=== PATIENT | female | born 1935 | race Caucasian/White ===

== ENCOUNTER 2016-08-03 15:29 | Inpatient (IN) | payer OTHER, MEDICARE ==
[~2016-08-03] VITALS: Ht 167.6 cm; Wt 100.7 kg
[~2016-08-03 15:29] MED LIST: ALDACTONE50 MG PO; ALLOPURINOL100 MG PO; AMLODIPINE10 MG PO; CORGARD20 MG PO; DITROPAN XL10 MG PO; FUROSEMIDE20 MG PO; LEVOTHYROXINE0.15 MG PO; LIORESAL 10MG T10 MG PO; LISINOPRIL AND1 TA1 PO; MAGOX 400241.3 MG PO; MASON NATURAL2000 IU PO; MEVACOR20 MG PO; NEURONTIN300 MG PO; PROTONIX 40MG T40 MG PO; REQUIP 0.5MG0.5 M1 PO; VITAB121000 PO
--- NOTE | 2016-08-03 15:36 | NUR ---
RECEIVED 80 YO FEMALE SENT BY URGENT CARE FOR ELEVATED BLOOD SUGAR AND COMPLAINT THAT PT'S GENITAL AREA IS RED, SWOLLEN, AND HAS BURNING PAIN X FEW WEEKS. MILD BURNING WITH URINATION.
--- NOTE | 2016-08-03 15:41 | NUR ---
BLOOD SUGAR > THAN 500
--- NOTE | 2016-08-03 15:50 | ED GENERAL ADULT ---
History of Present Illness General Chief Complaint: Female Urogenital Problems Stated Complaint: VAGINAL SWELLING, FREQUENT URINATION Source: patient, family Exam Limitations: no limitations Allergies Coded Allergies: Opioids - Morphine Analogues (ITCH, GI UPSET 08/03/16) Opioids-Meperidine and Related (ITCH, GI UPSET 08/03/16) Opioids-Methadone and Related (ITCH, GI UPSET 08/03/16) codeine (GI UPSET 08/03/16) morphine (ITCHING, GI UPSET 08/03/16) Reconcile Medications Allopurinol (Zyloprim) 100 MG TABLET 1 TAB PO DAILY GOUT (Reported) Amlodipine Besylate 10 MG TABLET 1 TAB PO DAILY BP (Reported) Cholecalciferol (Vitamin D3) (Vitamin D) 5,000 UNIT TABLET 1 TAB PO DAILY SUPPLEMENT (Reported) Cyanocobalamin (Vitamin B-12) 1,000 MCG TABLET 1 TAB PO DAILY SUPPLEMENT ( Reported) Duloxetine HCl (Cymbalta) 60 MG CAPSULE.DR 1 CAP PO DAILY NERVE PAIN ( Reported) Furosemide (Lasix) 20 MG TABLET 60 MG PO BID DIURETIC (Reported) Gabapentin 300 MG CAPSULE 1 CAP PO BID NERVE PAIN (Reported) Insulin Detemir (Levemir) 100 UNIT/ML VIAL 6 UNITS SC AD DM (Reported) Insulin-Lantus (Lantus) 100 UNIT/ML VIAL 46 UNITS SC QAM DM (Reported) Insulin-Lantus (Lantus) 100 UNIT/ML VIAL 50 UNITS SC QPM DM (Reported) Levothyroxine Sodium 175 MCG TABLET 1 TAB PO DAILY THYROID (Reported) Lovastatin 20 MG TABLET 1 TAB PO DAILY CHOLESTEROL (Reported) Magnesium Oxide (Magnesium) 500 MG CAPSULE 1 CAP PO DAILY SUPPLEMENT ( Reported) Mirabegron (Myrbetriq) 50 MG TAB.ER.24H 1 TAB PO DAILY BLADDER (Reported) Nadolol 20 MG TABLET 1 TAB PO DAILY BP (Reported) Omeprazole 40 MG CAPSULE.DR 1 CAP PO DAILY GI (Reported) Spironolactone (Aldactone) 50 MG TABLET 1 TAB PO BID DIURETIC (Reported) Triage Note: RECEIVED 80 YO FEMALE SENT BY URGENT CARE FOR ELEVATED BLOOD SUGAR AND COMPLAINT THAT PT'S GENITAL AREA IS RED, SWOLLEN, AND HAS BURNING PAIN X FEW WEEKS. MILD BURNING WITH URINATION. Triage Nurses Notes Reviewed? yes HPI: Patient is a 80-year-old female presents complaining of burning sensation with urination, vaginal swelling and vaginal itching. Symptoms for a couple of weeks. Over the past couple of days patient has been having increasing pain when she walks and sits which prompted her to go to an urgent care clinic today. Patient's blood sugar was measured to be greater than 500 and patient was sent to emergency department for further evaluation. Patient reports pain is moderate at rest, severe with walking. Associated polyuria, polydipsia. Patient denies fevers, chills, abdominal pain, nausea, vomiting. (SAMUEL FLORES) Vital Signs & Intake/Output Vital Signs & Intake/Output Vital Signs Date Time Temp Pulse Resp B/P Pulse O2 O2 Flow FiO2 Ox Delivery Rate 08/03 1852 67 18 138/68 96 Room Air 08/03 1600 Room Air 08/03 1537 96.5 72 20 160/99 96 Room Air Past History Travel History Traveled to [place] past 21 day No Medical History Any Pertinent Medical History? see below for history Neurological: dizziness Cardiovascular: hypertension, hyperlipidemia Respiratory: NONE Gastrointestinal: GERD Hepatic: cirrhosis Renal: urinary incontinence Musculoskeletal: gout Endocrine: diabetes, hypothyroidism Blood Disorders: thrombocytopenia Other Medical Hx: Urinary incontinence Surgical History Surgical History: appendectomy, cholecystectomy, hysterectomy, BILAT KNEE REPLACEMENTS Psychosocial History Who do you live with Spouse Services at Home None What is your primary language Georgian Tobacco Use: Never used Family History Hx Contributory? No (SAMUEL FLORES) Review of Systems Review of Systems Constitutional: Denies: chills, fever. EENTM: Reports: no symptoms. Respiratory: Denies: cough, short of breath. Cardiovascular: Denies: chest pain. GI: Denies: abdominal pain, nausea, vomiting. Genitourinary: Reports: dysuria, pain. Musculoskeletal: Reports: no symptoms. Skin: Reports: no symptoms. Neurological/Psychological: Denies: headache, numbness. Hematologic/Endocrine: Reports: polyuria, polydipsia. Denies: bruising, bleeding. Immunologic/Allergic: Reports: no symptoms. (SAMUEL FLORES) Physical Exam Physical Exam General Appearance: well developed/nourished, alert, awake Head: atraumatic, normal appearance Eyes: Bilateral: normal appearance, PERRL, EOMI. Ears, Nose, Throat: normal ENT inspection, hearing grossly normal Neck: normal inspection, supple, full range of motion Respiratory: normal breath sounds, chest non-tender, no respiratory distress, lungs clear Cardiovascular: regular rate/rhythm Gastrointestinal: soft, non-tender Back: normal inspection, normal range of motion Extremities: normal inspection, normal capillary refill, normal range of motion, no edema Skin: with Sandra RN present during exam: tinea rash present perivaginal and in the pelvic skin folds Core Measures ACS in differential dx? No CVA/TIA Diagnosis: No Severe Sepsis Present: No Septic Shock Present: No (SAMUEL FLORES) Progress Differential Diagnoses I considered the following diagnoses in my evaluation of the patient: DKA, hyperosmolar nonketotic state, UTI, tinea infection, sepsis, electrolyte abnormality Initial ED EKG: normal sinus rhythm 71 bpm, left axis deviation, no ischemic st/ t wave abormalities. (SAMUEL FLORES) Plan of Care: Orders Procedure Date/time Status Add-on Test (ER Only) 08/03 1940 Active Add-on Test (ER Only) 08/03 194 Active Patient Data 08/03 1921 Active Admit to inpatient 08/03 1836 Active TROPONIN LEVEL 08/03 1715 Active MAGNESIUM 08/03 1715 Active GLYCOSYLATED HGB 08/03 1715 Active MIXED VENOUS BLOOD GAS (GEN) 08/03 1548 Active SERUM OSMOLALITY 08/03 1548 Active COMPREHENSIVE METABOLIC PANEL 08/03 1548 Active CBC WITHOUT DIFFERENTIAL 08/03 1548 Complete ACETONE 08/03 1548 Active EKG 08/03 1548 Active CULTURE,URINE 08/03 1540 Active URINALYSIS 08/03 1540 Complete Current Medications Sig/Jennifer Start time Last Medication Dose Stop Time Status Admin Insulin Human Regular 100 UNIT ONCE ONE 08/03 1900 AC (Novolin R (Insulin 08/04 0459 Drip)) Sodium Chloride 100 ML (Normal Saline 0.9%) Sodium Chloride 1,000 ML ONCE ONE 08/03 1815 AC (Normal Saline 0.9%) 08/04 0054 Laboratory Tests 08/03/16 1730: Urine Color YEL, Urine Clarity CLEAR, Urine pH 6.5, Ur Specific [place] <= 1.005 , Urine Protein NEG, Urine Ketones NEG, Urine Nitrite NEG, Urine Bilirubin NEG, Urine Urobilinogen 0.2, Ur Leukocyte Esterase TRACE H, Ur Microscopic SEDIMENT EXAMINED, Urine RBC 3-5, Urine WBC 50-75 H, Ur Epithelial Cells FEW, Micro UA Comment BUD[place] YEAST H, Urine Hemoglobin TRACE-INTACT, Urine Glucose >=1000 H 08/03/16 1715: Bicarbonate Actual 28 H, Mixed VBG pH 7.33, Mixed VBG pCO2 55 H, Mixed VBG O2 Saturation 31 L, Carboxyhemoglobin 0.4 L, O2 Concentration % R/A, Anion Gap 10 , Estimated GFR 22 L, BUN/Creatinine Ratio 23.2, Glucose 919 *H, Hemoglobin A1c Pending, Serum Osmolality 339 H, Calcium 9.7, Magnesium Pending, Total Bilirubin 0.8, AST 30, ALT 39, Alkaline Phosphatase 128 H, Troponin I Pending, Total Protein 6.0 L, Albumin 3.4 L, Globulin 2.6, Albumin/Globulin Ratio 1.3, Phlebotomy Draw Site VENOUS, Acetone Level NEGATIVE 08/03/16 1600: CBC w Diff NO MAN DIFF REQ, RBC 3.39 L, MCV 95.0, MCH 32.8 H, RDW 14.9 H, MPV 12.6 H, Gran % 76.7 H, Lymphocytes % 15.6 L, Monocytes % 6.2, Eosinophils % 1.2, Basophils % 0.3, Absolute Granulocytes 4.0, Absolute Lymphocytes 0.8 L, Absolute Monocytes 0.3, Absolute Eosinophils 0.1, Absolute Basophils 0, PUBS MCHC 34.5 Microbiology 08/03 1729 URINE ROUT: Urine Culture - RECD 1819: Results of labs discussed with patient. Discussed with and seen by Dr. Spencer. Discussed with Dr. Nickerson: contact endocrine for whether or not an insulin drip should be intitiated. Will admit patient. Discussed with Dr. García: place on insulin drip, admit to ICU, have house staff call him. (SAMUEL FLORES) Departure Departure Time of Disposition: 1903 Disposition: STILL A PATIENT Condition: Stable Clinical Impression Primary Impression: Diabetes mellitus with hyperosmolarity Secondary Impressions: Acute kidney injury Tinea cruris Urinary tract infection Qualifiers: Urinary tract infection type: site unspecified Hematuria presence: without hematuria Qualified Code: N39.0 - Urinary tract infection, site not specified Referrals: MARIUSZ KAUR MD (PCP/Family) Departure Forms: Customer Survey General Discharge Information Admission Note [facility] Documentation of Exam: Documentation of any treatments & extenuating circumstances including Concerns Regarding Discharge (functional status, medication knowledge or non-compliance, living conditions, etc.) that warrant an admission rather than observation: ICU admission and monitoring, Insulin drip, serial labs, endocrine evaluation PA/RABBIT FANCIER Co-Sign Statement Statement: ED Attending supervision documentation- [x] I saw and evaluated the patient. I have also reviewed all the pertinent lab results and diagnostic results. I agree with the findings and the plan of care as documented in the PA's/RABBIT FANCIER's documentation. [] I have reviewed the ED Record and agree with the PA's/RABBIT FANCIER's documentation. [] Additions or exceptions (if any) to the PAs/RABBIT FANCIER's note and plan are summarized below: [] (SAMUEL FLORES) PA/RABBIT FANCIER Co-Sign Statement Statement: ED Attending supervision documentation- [] I saw and evaluated the patient. I have also reviewed all the pertinent lab results and diagnostic results. I agree with the findings and the plan of care as documented in the PA's/RABBIT FANCIER's documentation. [] I have reviewed the ED Record and agree with the PA's/RABBIT FANCIER's documentation. [] Additions or exceptions (if any) to the PAs/RABBIT FANCIER's note and plan are summarized below: [] (BHAVIK PEREZ,BRANDON Nino) Critical Care Note Critical Care Note Critical Care Time: 30-74 min (SAMUEL FLORES)
--- NOTE | 2016-08-03 15:55 | NUR ---
PT TO ROOM22 BY ERASMO, BIRGIT TRACY TO BEDSIDE FOR PT EVAL. EKG IN PROGRESS.
--- NOTE | 2016-08-03 16:19 | NUR ---
IV EST, NS INFUSING PER EMAR.
[2016-08-03 16:21] LABS: ABSOLUTE BASOPHIL COUNT 0 /CUMM (0.0-0.2); ABSOLUTE EOSINOPHIL COUNT 0.1 /CUMM (0.0-0.7); ABSOLUTE LYMPH COUNT 0.8 /CUMM (1.2-3.4); ABSOLUTE MONOCYTE COUNT 0.3 /CUMM (0.10-0.60); BASOPHIL % 0.3 % (0.0-2.0); EOSINOPHIL % 1.2 % (0-5); GRANULOCYTE % 76.7 % (42.2-75.2); HEMATOCRIT 32.2 % (37-47); MEAN CORPUSCULAR HGB 32.8 PG (27.0-31.0); MEAN CORPUSCULAR HGB CONC 34.5 G/DL (33.0-37.0); RBC DISTRIBUTION WIDTH 14.9 % (11.5-14.5); RED BLOOD CELL CT 3.39 /CUMM (4.20-5.40); WHITE BLOOD CELL COUNT 5.2 /CUMM (4.8-10.8)
--- NOTE | 2016-08-03 17:14 | NUR ---
BLOOD DRAWN AND SENT TO LAB-[facility]. VBG DRAWN AND RESP PICKED IT UP.
[2016-08-03 17:30] LABS: MEAN PLATELET VOLUME 12.6 FL (7.4-10.4)
--- NOTE | 2016-08-03 17:30 | NUR ---
URINE TRIO COLLECTED AND SENT TO LAB.
[2016-08-03 17:40] LABS: PLATELET COUNT 64 /CUMM (130-400)
--- NOTE | 2016-08-03 18:50 | NUR ---
2ND NS INFUSING PER EMAR. PT MEDICATED WITH NOVOLIN R 10UNITS SC PER EMAR. BG 919. PT MEDICATED WITH ROCEPHINE PER EMAR. NISTATIN APPLIED TO RASH.
[2016-08-03] MEDS ORDERED: AMLODIPINE BESY10 M1 PO (18:56)
[2016-08-03] MEDS ORDERED: ALDACTONE50 M1 PO (18:56)
[2016-08-03] MEDS ORDERED: NADOLOL20 M1 PO (18:57)
[2016-08-03] MEDS ORDERED: LEVOTHYROXINE175 MCG PO (18:57)
[2016-08-03] MEDS ORDERED: LASIX20 M1 PO (18:57)
[2016-08-03] MEDS ORDERED: LOVASTATIN20 M1 PO (18:58)
[2016-08-03] MEDS ORDERED: ZYLOPRIM100 M1 PO (18:58)
[2016-08-03] MEDS ORDERED: VITAMIN B-121000 MC3 PO (18:59)
[2016-08-03] MEDS ORDERED: OMEPRAZOLE40 M1 PO (18:59)
[2016-08-03] MEDS ORDERED: MYRBETRIQ50 M1 PO (18:59)
[2016-08-03] MEDS ORDERED: VITAMIN D5000 UNIT PO (19:00)
[2016-08-03] MEDS ORDERED: MAGNESIUM500 M2 PO (19:00)
[2016-08-03] MEDS ORDERED: LEVEMIR100 UNIT/1 SC (19:01)
[2016-08-03] MEDS ORDERED: CYMBALTA60 M1 PO (19:02)
[2016-08-03] MEDS ORDERED: LANTUS100 UNIT/1 SC ×2 (19:02)
[2016-08-03] MEDS ORDERED: GABAPENTIN300 M2 PO (19:03)
--- NOTE | 2016-08-03 19:31 | History & Physical ---
[facility] 08[facility]03[facility]161926: General Information and HPI MD Statement: I have seen and personally examined ANGELA LEMOS and documented this H&P. The patient is a 80 year old F who presented with a patient stated chief complaint of frequent urination. Source of Information: patient Exam Limitations: no limitations History of Present Illness: 77-year-old very pleasant woman, with a history of insulin-dependent type 2 diabetes the past 15 years, hypercholesterolemia and hypertension, gout, liver cirrhosis, hyperlipidemia, depression, GERD, restless leg syndrome, portal hypertension, varices, gastropathy, presented today from an emergent care center after she was found to have a blood glucose level of 500 over there. According to the patient, she has been developing symptoms of urinary frequency, vaginal swelling, vaginal itching, and burning in the vagina plus while urinating approximately 2 weeks prior to admission. She cannot exactly remember the timeline. According to the patient she has a history of urinary incontinence and sees Dr. Bush, her urologist, for urinary incontinence. Wearing a diaper since the past over 5 years and now there might be a plan for Botox injections because her symptoms are worsening. She also had associated dizziness, and felt as if she would fall down but she didn't have support but did not have a fall. She reported increased thirst, increased urinary frequency , but her appetite has been suboptimal. According to the patient her blood sugars are managed by her outpatient primary care physician, Dr. Koo and she has never seen an nutrition program instructor. She usually takes insulin but at times forgets to take it. Last time she took her insulin was 1 day prior to admission , because she forgot to take her insulin yesterday. She stated, her but sugar levels have been between 60-500 and they're always labile. Reported intermittent abdominal pain, lower abdomen, sharp, not associated with anything, comes and goes on its own, and stays only for a few seconds, no radiation. She also reported left elbow pain that has been going on since the past few weeks now, that radiates from the left shoulder to the left elbow and at times the left fingers, with some paresthesias and numbness in the lateral 3 fingers. For this reason she was scheduled to have a stress test with Dr. Fitzgerald tomorrow that her was now get cancelled. She denies chest pain, shortness of breath, is able to lay flat without any difficulty, denies any fever or chills, denies nausea or vomiting, has baseline cough with no phlegm or no change in her cough, visual changes including blurry vision, that have been going on since the past 4-5 months and she sees an friction saw operator for that. Of note the patient was diagnosed with liver cirrhosis 3-4 years prior to admission, causes unknown. She is not a drinker, and was never diagnosed with hepatitis either. She had an endoscopy in 2012 when she was admitted to [facility] and was found to have bleeding varices with portal hypertension. She continues to use Spironolactone and Nadolol. Her family was present at bedside including 2 daughters, 1 son and a granddaughter. Allergies/Medications Allergies: Coded Allergies: Opioids - Morphine Analogues (ITCH, GI UPSET 08/03/16) Opioids-Meperidine and Related (ITCH, GI UPSET 08/03/16) Opioids-Methadone and Related (ITCH, GI UPSET 08/03/16) codeine (GI UPSET 08/03/16) morphine (ITCHING, GI UPSET 08/03/16) Home Med list Allopurinol (Zyloprim) 100 MG TABLET 1 TAB PO DAILY GOUT (Reported) Amlodipine Besylate 10 MG TABLET 1 TAB PO DAILY BP (Reported) Cholecalciferol (Vitamin D3) (Vitamin D) 5,000 UNIT TABLET 1 TAB PO DAILY SUPPLEMENT (Reported) Cyanocobalamin (Vitamin B-12) 1,000 MCG TABLET 1 TAB PO DAILY SUPPLEMENT ( Reported) Duloxetine HCl (Cymbalta) 60 MG CAPSULE.DR 1 CAP PO DAILY NERVE PAIN ( Reported) Furosemide (Lasix) 20 MG TABLET 60 MG PO BID DIURETIC (Reported) Reason to Stop at ADM: DEHYDRATED, JOHN, HHNS Gabapentin 300 MG CAPSULE 1 CAP PO BID NERVE PAIN (Reported) Reason to Stop at ADM: JOHN, MAY RESTART TOMORROW OR DAY AFTER Insulin Detemir (Levemir) 100 UNIT/ML VIAL 6 UNITS SC AD DM (Reported) Reason to Stop at ADM: INSULIN DRIP Insulin-Lantus (Lantus) 100 UNIT/ML VIAL 46 UNITS SC QAM DM (Reported) Reason to Stop at ADM: INLUSIN DRIP Insulin-Lantus (Lantus) 100 UNIT/ML VIAL 50 UNITS SC QPM DM (Reported) Reason to Stop at ADM: INSULIN DRIP Levothyroxine Sodium 175 MCG TABLET 1 TAB PO DAILY THYROID (Reported) Lovastatin 20 MG TABLET 1 TAB PO DAILY CHOLESTEROL (Reported) Magnesium Oxide (Magnesium) 500 MG CAPSULE 1 CAP PO DAILY SUPPLEMENT ( Reported) Mirabegron (Myrbetriq) 50 MG TAB.ER.24H 1 TAB PO DAILY BLADDER (Reported) Nadolol 20 MG TABLET 1 TAB PO DAILY BP (Reported) Omeprazole 40 MG CAPSULE.DR 1 CAP PO DAILY GI (Reported) Spironolactone (Aldactone) 50 MG TABLET 1 TAB PO BID DIURETIC (Reported) Reason to Stop at ADM: ON FLUIDS Compliance With Home Meds: FAIR Past History Travel History Traveled to [place] past 21 day No Medical History Neurological: dizziness Cardiovascular: hypertension, hyperlipidemia Gastrointestinal: GERD, portal hypertension, gastropathy, varices Hepatic: cirrhosis Renal: urinary incontinence Musculoskeletal: gout, restless leg syndrome Psychiatric: depression Endocrine: diabetes, hypothyroidism Blood Disorders: thrombocytopenia Other Medical Hx: Urinary incontinence Surgical History Surgical History: appendectomy, cholecystectomy, hysterectomy, BILAT KNEE REPLACEMENTS Past Family/Social History Family History Relations & Conditions if any FATHER (Had a history of brain aneurysm and of stroke at the age of 73). MOTHER (Mother at the age of 26 years, unknown cause). Psychosocial History Where do you live? Home Who Do You Live With? spouse Services at Home: None Primary Language: Spanish Smoking Status: Never Smoked ETOH Use: occasional use Illicit Drug Use: denies illicit drug use Living Will? no Functional Ability ADLs Independent: dressing, eating, toileting, bathing. Ambulation: independent IADLs Independent: shopping, housework, finances, food prep, telephone, medication admin. Needs Assist: transportation. 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 EENTM: Reports: blurred vision. Cardiovascular: Reports: no symptoms. Respiratory: Reports: no symptoms. GI: Reports: no symptoms. Denies: constipation, diarrhea, nausea, vomiting. Genitourinary: Reports: see HPI, frequency, urgency. Musculoskeletal: Reports: muscle pain. Skin: Reports: change in skin color. Neurological/Psychological: Reports: no symptoms. Hematologic/Endocrine: Reports: see HPI, polyuria, polydipsia. Exam & Diagnostic Data Last 24 Hrs of Vital Signs/I&O Vital Signs Date Time Temp Pulse Resp B/P Pulse O2 O2 Flow FiO2 Ox Delivery Rate 08/03 1852 67 18 138/68 96 Room Air 08/03 1600 Room Air 08/03 1537 96.5 72 20 160/99 96 Room Air Intake & Output 08/03 1600 08/03 0800 08/03 0000 Intake Total Output Total Balance Patient 204 lb Weight Physical Exam General Appearance Alert, Oriented X3, Cooperative, No Acute Distress Skin see pelvic exam HEENT Atraumatic, PERRLA, EOMI, dry mucous membranes Neck Supple, No JVD Lymphatic Cervical nl Cardiovascular Regular Rate, Normal S1, Normal S2, No Murmurs Lungs Clear to Auscultation, Normal Air Movement Abdomen Normal Bowel Sounds, Soft, No Tenderness, No Hepatospenomegaly, no CVA tenderness Neurological Normal Speech, Strength at 5/5 X4 Ext, Normal Tone, Sensation Intact, Cranial Nerves 3-12 NL Extremities No Clubbing, No Cyanosis, Normal Pulses, trace pedal/nkle edema Vascular Normal Pulses, Pulses Symmetrical Pelvic (FEMALE) erythematous, swollen, exudative, moist skin of the labia and surrounding skin up to upper mid thighs. Wet with urine Last 24 Hrs of Labs/Unruly: Laboratory Tests 08/03/162104: Sodium Cancelled, Potassium Cancelled, Chloride Cancelled, Carbon Dioxide Cancelled, Anion Gap Cancelled, BUN Cancelled, Creatinine Cancelled, BUN/ Creatinine Ratio Cancelled 08/03/16 1730: Urine Color YEL, Urine Clarity CLEAR, Urine pH 6.5, Ur Specific Laverne <= 1.005 , Urine Protein NEG, Urine Ketones NEG, Urine Nitrite NEG, Urine Bilirubin NEG, Urine Urobilinogen 0.2, Ur Leukocyte Esterase TRACE H, Ur Microscopic SEDIMENT EXAMINED, Urine RBC 3-5, Urine WBC 50-75 H, Ur Epithelial Cells FEW, Micro UA Comment BUDDING YEAST H, Urine Hemoglobin TRACE-INTACT, Urine Glucose >=1000 H 08/03/16 1715: Bicarbonate Actual 28 H, Mixed VBG pH 7.33, Mixed VBG pCO2 55 H, Mixed VBG O2 Saturation 31 L, Carboxyhemoglobin 0.4 L, O2 Concentration % R/A, Anion Gap 10 , Estimated GFR 22 L, BUN/Creatinine Ratio 23.2, Glucose 919 *H, Hemoglobin A1c Pending, Serum Osmolality 339 H, Calcium 9.7, Magnesium 1.1 L, Total Bilirubin 0.8, AST 30, ALT 39, Alkaline Phosphatase 128 H, Troponin I < 0.01, Total Protein 6.0 L, Albumin 3.4 L, Globulin 2.6, Albumin/Globulin Ratio 1.3, Phlebotomy Draw Site VENOUS, Acetone Level NEGATIVE 08/03/16 1600: CBC w Diff NO MAN DIFF REQ, RBC 3.39 L, MCV 95.0, MCH 32.8 H, RDW 14.9 H, MPV 12.6 H, Gran % 76.7 H, Lymphocytes % 15.6 L, Monocytes % 6.2, Eosinophils % 1.2, Basophils % 0.3, Absolute Granulocytes 4.0, Absolute Lymphocytes 0.8 L, Absolute Monocytes 0.3, Absolute Eosinophils 0.1, Absolute Basophils 0, PUBS MCHC 34.5 Microbiology 08/03 1730 URINE ROUT: Urine Culture - RECD Diagnostic Data EKG Results Normal sinus rhythm at 71, QTC 422, no ST-T wave changes Assessment/Plan Assessment: 77-year-old very pleasant woman, with a history of insulin-dependent type 2 diabetes the past 15 years, hypercholesterolemia and hypertension, gout, liver cirrhosis, hyperlipidemia, depression, GERD, restless leg syndrome, portal hypertension, varices, gastropathy, presented with vaginal itching, swelling, urinary frequency, polydipsia polyuria, S.Glu 919, serum osmolality of 339, normal anion gap, last HbA1c in 2012, 10.9, negative acetone, being admitted to the ICU for hyperosmolar hypoglycemic nonketotic syndrome, and UTI plus tinea cruris. Assessment: 1. Hyperosmolar hypoglycemic nonketotic syndrome 2. Urinary tract infection 3. Tenia cruris 4. Hyponatremia 5. Acute kidney injury 6. Hypomagnesemia 7. Hyperkalemia 8. Thrombocytopenia 9. Left elbow pain 10. Insulin-dependent diabetes mellitus 11. History of liver cirrhosis, portal hypertension, varices 12. History of hypertension 13. History of gout 14. Bilateral trace ankle edema, at baseline Plan: -Admit to ICU -Vitals according to ICU protocol 1. Hyperosmolar hypoglycemic nonketotic syndrome: - Patient with a history of insulin-dependent diabetes mellitus, noncompliant with insulin, missed dose of insulin 1 day prior to admission, also has UTI and tinea cruris. Both being noncompliant and an acute infection could have precipitated hyperosmolar hyperglycemic nonketotic syndrome. She has a low blood glucose level of 919, serum osmolality 339, serum potassium 5.3, normal anion gap of 10, and negative acetone. - Already received 3 boluses of normal saline in the ED - We'll continue with aggressive hydration however it is important to keep in mind that the patient takes Lasix 60 mg twice a day at home as well as spironolactone and it is important to watch for respiratory status. Currently she is saturating well on room air, is able to lay flat, and her lungs sound clear. - She seems very dry and is in NS right now there for we'll start on normal saline at 125 mL per hour - We'll start on an insulin drip - We'll check blood sugars every hour and monitor closely in the ICU - Once the blood sugar reaches down to 250, will change the fluids to D5 half normal saline and continue at 125 or 100 mL per hour depending on her respiratory status at that time - We will check ICU bundle every 4 hours - Currently his potassium is 5.3. If the potassium is between 3.4-5.3 we'll start 20 mEq of potassium in fluids. If the potassium is less than 3.4 Will add 40 mEq of potassium in fluids. - We will keep the patient on insulin drip overnight, and transition to subcutaneous insulin in the morning based on her fingerstick readings - We'll keep on clear liquid diet for now and may transition to oral food off the drip was stopped in the morning - Endocrinology consult with Dr. García 2. Urinary tract infection: - The patient has symptoms of UTI with urinary frequency, dysuria, vaginal itching and burning, also has history of urinary incontinence, no leukocytosis, no fever but a positive UA with W BC count of 50-75, but it is also important to note that she has trace leuk esterase and few epithelial cells. She also has yeast growing in her urine. - Based on symptoms and a positive UA and the fact that the patient is in NS, will treat the UTI with IV ceftriaxone - Urine culture was was taken in the ER and the first dose of IV ceftriaxone was given in the ER as well 3. Tenia cruris: - The patient has vaginal swelling, erythema, moist skin which looks exudative, itching and burning which meets the criteria and looks like tinea cruris - For now will start with nystatin powder 3 times a day - She does not respond to topical therapy may consider starting by mouth antifungal 4. Hyponatremia: - Sodium on admission is 124 which is likely secondary to hyperglycemia - We will hydrate her, correct her blood sugars and recheck BEP 4 hours 5. Acute kidney injury: - BUN 51/creatinine 2.2 on admission, baseline anywhere between 1.1-1.4, portal we have the labs from 2014 - We'll recheck ICU bundle and continue to monitor and trend creatinine levels after hydration 6. Hypomagnesemia: - I added on a combination level on admission it came back 1.1 - We give 2 mg bolus of recent sulfate and recheck BEP in another 4 hours - We'll replete accordingly thereafter 7. Hyperkalemia: - 5.3 on admission - This is likely secondary to hyperosmolar hyperglycemic nonketotic syndrome, and not true hyperkalemia because of intracellular shift due to hyperglycemia - After the patient has been on insulin drip the levels will drop down - We'll check ICU bundle and 4 hours - If the potassium is between 3.4-5.3, will add potassium 20 mEq in the fluids - The potassium is less than 3.4, will add potassium 40 mEq in the fluids - Continue to monitor 8. Thrombocytopenia: - On admission the patient's platelet count was 64 - On prior admissions the patient's platelet count has remained in between the range of 65-84 which could be likely secondary to her liver cirrhosis - We monitor for thrombocytopenia - No active bleeding currently - Avoid heparin - Alps for DVT prophylaxis 9. Left elbow pain: - The patient has been having elbow pain since the past few weeks, in fact she reported that her pain starts from the left shoulder goes to the left elbow and at times reaches the lateral 3 fingers along with numbness - She was referred to cardiology, Dr. Fitzgerald, by her primary care physician Dr. Koo, and was due for a stress test to rule out cardiac cause - She continues to have very severe pain in the left elbow and is very uncomfortable due to that - We'll get an x-ray of her left elbow just to rule out any fracture/arthritis/ other pathology 10. Insulin-dependent diabetes mellitus: - The patient takes insulin Lantus 46 units in the morning and 50 at night - She also takes Levemir 6 units before meals - Last HbA1c on record is from , which is 10.9 - We add on an HbA1c - We'll hold off on insulin for now - The patient is on insulin drip due HHNS 11. History of liver cirrhosis, portal hypertension, varices: - According to the patient she was diagnosed with liver cirrhosis about 3-4 years prior to admission, has also had an admission with tarry dark stools, status post EGD in 2012, when she was found to have varices, and portal hypertension - The cause of her liver cirrhosis is unknown. She is not an alcoholic and she was never diagnosed with hepatitis either - Stable - Currently she is on spironolactone and Nadolol - Continue with Adderall, but will spironolactone as the patient needs to be hydrated - May consider restarting in the next 24-48 hours 12. History of hypertension: - The patient has a history of hypertension and takes amlodipine and milligrams by mouth daily - Blood pressure on admission was 160/99 and while being evaluated by the ICU team it was 136/77 - We can start amlodipine tomorrow morning - It is important to note that the patient also takes Lasix 60 mg twice a day. According to the patient she does not have a history of heart failure, but gets trace ankle edema. We do not have an echocardiogram in our records - We'll get an echocardiogram, considering that she was supposed to get a stress test tomorrow, she is on aggressive hydration and we will be holding Lasix 13. History of gout: - We'll continue with home allopurinol 100 mg daily 14. History of GERD: - We'll continue with home omeprazole 40 mg by mouth daily 15. History of hypothyroidism: - We'll continue with home dose of levothyroxine 175 g 1 daily 16. History of urinary incontinence: - We'll continue with home dose of Myrbetriq 50 mg daily 17. History of hyperlipidemia: - The patient takes lovastatin 20 mg by mouth daily - We'll start on pharmacy substitution, atorvastatin 5 mg by mouth daily 18. History of depression: - We'll continue with Cymbalta 60 mg by mouth daily 19. We'll continue with home supplements, that his vitamin D and vitamin B12 20. Diet: - Clear liquid diet for now, may advance as tolerated off with insulin drip was stopped 21. DVT prophylaxis: - Because of thrombocytopenia we'll place on Alps and avoid heparin 22. Pain pathway: - Mild to moderate pain (1-5): By mouth Tylenol as needed - Severe pain (6-10): IV Tylenol as needed - It is important to note that the patient has allergy to opioids therefore would avoid given any narcotics/opioids for pain control 23. CODE STATUS: Full code As Ranked By This Provider Problem List: 1. Hyperglycemic hyperosmolar nonketotic coma 2. Acute kidney injury 3. Uncontrolled diabetes mellitus 4. Cirrhosis 5. Gout 6. Depression 7. Restless leg syndrome 8. Dyslipidemia 9. Hypertension 10. Portal hypertension Core Measures/Miscellaneous Acute Coronary Syndrome ACS Diagnosis: No Cerebrovascular Accident CVA/TIA Diagnosis: No Congestive Heart Failure CHF Diagnosis: No Venous Thromboembolism VTE Risk Factors: Age > 40, Obesity [facility] prophylaxis d/t: No contraindications No VTE Pharm Prophylaxis d/t: No contraindications VTE Diagnosis: No VTE Type: NONE VTE Confirmed by (Test): NONE Severe Sepsis Severe Sepsis Present: No Septic Shock Septic Shock Present: No Miscellaneous Documentation Attending Case Discussed With: REBECA NICKERSON Primary Care Physician: MARIUSZ KAUR MD Patient sees these Specialists Dr. Bush, urology Dr. Villeda, optho Dr. Erazo, (was due for an outpatient stress test) Level of Patient Care: Critical Care (CRI) Consults Needed: Consulting Specialty: Endocrinology Consulting Physician: Dr. García Reason for Consult: [facility] Resident Review Statement Resident Statement: examined this patient, discussed with news internship, agreed with news internship, discussed with family, reviewed EMR data (avail), reviewed images Other Findings: Nai as Above KRISHAN PEREZ, [facility] 08/03/16 2342: Attending MD Review Statement Attending Statement Attending MD Statement: examined this patient, discuss w/resident/PA/POST SECONDARY PROFESSIONAL, agreed w/resident/PA/POST SECONDARY PROFESSIONAL, discussed with family Attending Assessment/Plan: 77 yo F with h/o T2DM on insulin, HTN, CKD stage 3A-3B, cirrhosis 2/2 SORIA with esophageal varices and portal hypertension, ROD, hypothyroidism, gout, presents for evaluation of urinary symptoms, vaginal itching/ burning ongoing for 2 weeks now and elevated blood sugars. She was seen at a [id number] where her sugars were >500, hence she was sent to ER. C/o polyuria, polydipsia, urinary frequency , dizziness and occasional lower abdominal discomfort. Family reports lethargy and confusion. Patient is not compliant to a diabetic diet and has not taken insulin for past 2 days. Reports labile blood sugar readings at home. Of note, she is scheduled for an outpatient stress test tomorrow with Dr. Eleni Holt for c/o left arm pain and paresthesias. VSS. Exam: AAO, dry mucous membranes, Chest clear, Heart S1S2 regular, Abd soft, NT, Perineal exam: erythematous tinea rash with labial swelling noted, rash spreads to pelvic skin folds. Labs: H/H 11.1/32.2, Plt 64 (chronic), INR 1.25, Na 124, K 5.3, AG 10, bicarb 28, BUN 51, creat 2.2 (baseline 1.1-1.4), glucose 919, S. Osm 339, Mag 1.1, trop neg, acetone neg. VB.33/55/53/28. UA trace LE , WBC 50-75, budding yeast. EKG: SR, Qtc 422. 1. Hyperosmolar hyperglycemic nonketotic state precipitated by noncompliance with insulin and ongoing infection. ICU admit, accucheks Q1, ICU bundle Q4, NS bolus X 3 L, followed by maintenance, insulin drip, titrate based on sugars, once sugar < 250 change to D5-1/2NS with KCL, clear liquid diet, anti-emetics. Hold lasix and spirinolactone. Endo consulted. Check A1c. 2. UTI/ tinea cruris. Given urinary symptoms, we will treat with IV ceftriaxone after obtaining urine culture. Urine also shows budding yeast, hence will cover with fluconazole for possible candidial infection. For tinea cruris, we can treat with topical miconazole, if ineffective can consider oral therapy. 3. Acute on CKD stage 3A-B. Continue IV hydration and reassess renal functions. 4. Pseudohyponatremia in the setting of hyperglycemia. Corrected sodium is 144. 5. Hypomagnesemia. Repleted with IV Mag. 6. Thrombocytopenia likely chronic in the setting of cirrhosis. 7. Left arm pain of unclear etiology. Will obtain Xray. Patient is scheduled for outpatient stress test, which needs to be rescheduled. Will check an echocardiogram to assess LV function. 8. Cirrhosis and portal hypertension. Holding off lasix and spirinolactone. Can resume nadolol. DVT ppx Alps. Full code. I had a detailed discussion with family which includes patient's son, 2 daughter and granddaughter, explained importance of maintaining compliance to medications and possible complications. TTS > 45 mins
--- NOTE | 2016-08-03 19:52 | NUR ---
PHARMACY CALLED FOR INSULIN DRIP.
--- NOTE | 2016-08-03 20:24 | NUR ---
HOUSE STAFF AT BEDSIDE FOR PT EVAL.
--- NOTE | 2016-08-03 20:56 | NUR ---
INSULIN DRIP 100UNITS/100ML INITIATED AT 6 UNITS/HR PER EMAR PER MD KRISHAN ORDER. BG >500. 3RD LITER OF NS INFUSING PER EMAR.
--- NOTE | 2016-08-03 21:05 | NUR ---
PT TO RAD BY STRETCHER.
--- NOTE | 2016-08-03 22:01 | NUR ---
2ND IV EST RF G20, MAG SULFATE INFUSING PER EMAR. VSS. AWAITING ADMISSION.
--- NOTE | 2016-08-03 22:29 | NUR ---
REPORT CALLED TO ICU TO [facility]ICE.
--- NOTE | 2016-08-03 22:45 | NUR ---
BLOOD DRAWN AND SENT TO LAB- SST,MCCABE,BLUE.
--- NOTE | 2016-08-03 22:55 | Admission Certification ---
Admission Certification Certification Statement - As attending physician, I certify that at the time of - admission, based on clinical presentation, severity of - symptoms, need for further diagnostic testing and - therapeutic interventions, and risk of adverse outcomes - without in-hospital treatment, in my clinical assessment, - this patient requires an acute hospital stay for a minimum - of two nights or longer. I have also considered psychsocial - factors such as support system, advanced age, financial - issues, cognitive issues, and failed out-patient treatments, - past re-admission history, safety of patient, and lack of - compliance as applicable. Specific rationale supporting this admission is: Hyperosmolar hyperglycemic nonketotic state requiring insulin drip and ICU level of care.
[2016-08-03 22:58] LABS: PT 13.1 SEC (9.4-12.5)
--- NOTE | 2016-08-03 23:00 | NUR ---
PATIENT ARRIVES FROM ER VIA STRETCHER. ALERT AND ORIENTED. MONITOR SINUS RHYTHM AT RATE OF 68.MANUAL VR=514/70.PT ON ROOM AIR WITH SAT OF 98%.LUNG SOUNDS CLEAR. INSULIN DRIP AT 6 UNITS/HR.2300 FMJUKODUZ=446.INSULIN DRIP DECREASED TO 4 UNITS/HR.IV OF NS INFUSING FRON ER.PT HAS RED RASH IN GROIN AREA.
[2016-08-04] VITALS: BP 116/60
--- NOTE | 2016-08-04 01:00 | NUR ---
PVAUSZOKD=788.INSULIN DRIP DECREASED TO 2 UNITS /HR.IVF CHANGED TO D5 1/2NS AT 125 ML/HR.
[2016-08-04 06:24] LABS: ABSOLUTE BASOPHIL COUNT 0 /CUMM (0.0-0.2); ABSOLUTE EOSINOPHIL COUNT 0.1 /CUMM (0.0-0.7); ABSOLUTE GRANULOCYTE CT 1.8 /CUMM (1.4-6.5); ABSOLUTE LYMPH COUNT 1.4 /CUMM (1.2-3.4); ABSOLUTE MONOCYTE COUNT 0.3 /CUMM (0.10-0.60); GRANULOCYTE % 49.7 % (42.2-75.2); MEAN PLATELET VOLUME 10.3 FL (7.4-10.4); RED BLOOD CELL CT 2.88 /CUMM (4.20-5.40)
[2016-08-04 06:27] LABS: BASOPHIL % 0.5 % (0.0-2.0); EOSINOPHIL % 2.1 % (0-5); MEAN CORPUSCULAR HGB 32.4 PG (27.0-31.0); MEAN CORPUSCULAR HGB CONC 34.2 G/DL (33.0-37.0); MEAN CORPUSCULAR VOLUME 94.8 FL (81.0-99.0); PLATELET COUNT 52 /CUMM (130-400); RBC DISTRIBUTION WIDTH 14.7 % (11.5-14.5); WHITE BLOOD CELL COUNT 3.7 /CUMM (4.8-10.8)
[2016-08-04 06:30] LABS: HEMATOCRIT 27.3 % (37-47)
--- NOTE | 2016-08-04 07:11 | Cons- CRCU ---
IAN PEREZ,TAI 08/04/16 0711: General Information and HPI History of Present Illness: 77-year-old very pleasant woman, with a history of insulin-dependent type 2 diabetes the past 15 years, hypercholesterolemia and hypertension, gout, liver cirrhosis, hyperlipidemia, depression, GERD, restless leg syndrome, portal hypertension, varices, gastropathy, presented today from an emergent care center after she was found to have a blood glucose level of 500 over there. According to the patient, she has been developing symptoms of urinary frequency, vaginal swelling, vaginal itching, and burning in the vagina plus while urinating approximately 2 weeks prior to admission. She cannot exactly remember the timeline. According to the patient she has a history of urinary incontinence and sees Dr. Bush, her urologist, for urinary incontinence. Wearing a diaper since the past over 5 years and now there might be a plan for Botox injections because her symptoms are worsening. She also had associated dizziness, and felt as if she would fall down but she didn't have support but did not have a fall. She reported increased thirst, increased urinary frequency , but her appetite has been suboptimal. According to the patient her blood sugars are managed by her outpatient primary care physician, Dr. Koo and she has never seen an marine chronometer assembler. She usually takes insulin but at times forgets to take it. Last time she took her insulin was 1 day prior to admission , because she forgot to take her insulin yesterday. She stated, her but sugar levels have been between 60-500 and they're always labile. Reported intermittent abdominal pain, lower abdomen, sharp, not associated with anything, comes and goes on its own, and stays only for a few seconds, no radiation. She also reported left elbow pain that has been going on since the past few weeks now, that radiates from the left shoulder to the left elbow and at times the left fingers, with some paresthesias and numbness in the lateral 3 fingers. For this reason she was scheduled to have a stress test with Dr. Fitzgerald tomorrow that her was now get cancelled. She denies chest pain, shortness of breath, is able to lay flat without any difficulty, denies any fever or chills, denies nausea or vomiting, has baseline cough with no phlegm or no change in her cough, visual changes including blurry vision, that have been going on since the past 4-5 months and she sees an honing job setter for that. Of note the patient was diagnosed with liver cirrhosis 3-4 years prior to admission, causes unknown. She is not a drinker, and was never diagnosed with hepatitis either. She had an endoscopy in 2012 when she was admitted to [facility] and was found to have bleeding varices with portal hypertension. She continues to use Spironolactone and Nadolol. Her family was present at bedside including 2 daughters, 1 son and a granddaughter. Allergies/Medications Allergies: Coded Allergies: Opioids - Morphine Analogues (ITCH, GI UPSET 08/03/16) Opioids-Meperidine and Related (ITCH, GI UPSET 08/03/16) Opioids-Methadone and Related (ITCH, GI UPSET 08/03/16) codeine (GI UPSET 08/03/16) morphine (ITCHING, GI UPSET 08/03/16) Home Med List: Allopurinol (Zyloprim) 100 MG TABLET 1 TAB PO DAILY GOUT (Reported) Amlodipine Besylate 10 MG TABLET 1 TAB PO DAILY BP (Reported) Cholecalciferol (Vitamin D3) (Vitamin D) 5,000 UNIT TABLET 1 TAB PO DAILY SUPPLEMENT (Reported) Cyanocobalamin (Vitamin B-12) 1,000 MCG TABLET 1 TAB PO DAILY SUPPLEMENT ( Reported) Duloxetine HCl (Cymbalta) 60 MG CAPSULE.DR 1 CAP PO DAILY NERVE PAIN ( Reported) Furosemide (Lasix) 20 MG TABLET 60 MG PO BID DIURETIC (Reported) Reason to Stop at ADM: DEHYDRATED, JOHN, HHNS Gabapentin 300 MG CAPSULE 1 CAP PO BID NERVE PAIN (Reported) Reason to Stop at ADM: JOHN, MAY RESTART TOMORROW OR DAY AFTER Insulin Detemir (Levemir) 100 UNIT/ML VIAL 6 UNITS SC AD DM (Reported) Reason to Stop at ADM: INSULIN DRIP Insulin-Lantus (Lantus) 100 UNIT/ML VIAL 46 UNITS SC QAM DM (Reported) Reason to Stop at ADM: INLUSIN DRIP Insulin-Lantus (Lantus) 100 UNIT/ML VIAL 50 UNITS SC QPM DM (Reported) Reason to Stop at ADM: INSULIN DRIP Levothyroxine Sodium 175 MCG TABLET 1 TAB PO DAILY THYROID (Reported) Lovastatin 20 MG TABLET 1 TAB PO DAILY CHOLESTEROL (Reported) Magnesium Oxide (Magnesium) 500 MG CAPSULE 1 CAP PO DAILY SUPPLEMENT ( Reported) Mirabegron (Myrbetriq) 50 MG TAB.ER.24H 1 TAB PO DAILY BLADDER (Reported) Nadolol 20 MG TABLET 1 TAB PO DAILY BP (Reported) Omeprazole 40 MG CAPSULE.DR 1 CAP PO DAILY GI (Reported) Spironolactone (Aldactone) 50 MG TABLET 1 TAB PO BID DIURETIC (Reported) Reason to Stop at ADM: ON FLUIDS Review of Systems Review of Systems Constitutional: Reports: no symptoms. EENTM: Reports: no symptoms. Cardiovascular: Reports: no symptoms. Respiratory: Reports: no symptoms. GI: Reports: no symptoms. Genitourinary: Reports: see HPI. Musculoskeletal: Reports: no symptoms. Skin: Reports: no symptoms. Neurological/Psychological: Reports: no symptoms. Hematologic/Endocrine: Reports: no symptoms. All Other Systems: Reviewed and Negative Past History Travel History Traveled to [place] past 21 day No Medical History Blood Transfusion Hx: No Neurological: dizziness Cardiovascular: hypertension, hyperlipidemia Gastrointestinal: GERD, portal hypertension, gastropathy varices Hepatic: cirrhosis Renal: urinary incontinence Musculoskeletal: gout, restless leg syndrome Psychiatric: depression Endocrine: diabetes, hypothyroidism Blood Disorders: thrombocytopenia Other Medical Hx: Urinary incontinence Surgical History Surgical History: appendectomy, cholecystectomy, hysterectomy, BILAT KNEE REPLACEMENTS Family History Relations & Conditions If Any: FATHER (Had a history of brain aneurysm and of stroke at the age of 73). MOTHER (Mother at the age of 26 years, unknown cause). Psychosocial History Where Do You Live? Home Who Do You Live With? spouse Services at Home: None Primary Language: Lithuanian Smoking Status: Never Smoked ETOH Use: occasional use Illicit Drug Use: denies illicit drug use Living Will? no Functional Ability ADLs Independent: dressing, eating, toileting, bathing. Ambulation: independent IADLs Independent: shopping, housework, finances, food prep, telephone, medication admin. Needs Assist: transportation. 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 Exam & Diagnostic Data Last 24 Hrs of Vital Signs/I&O Vital Signs Date Time Temp Pulse Resp B/P Pulse O2 O2 Flow FiO2 Ox Delivery Rate 08/04 1600 97.6 56 18 102/66 96 Room Air 08/04 1200 97 Room Air Room Air 08/04 0955 96.9 63 16 119/66 08/04 0954 96.9 63 16 119/66 08/04 0800 98 Room Air Room Air 08/04 0800 96.9 70 20 140/70 98 Room Air Room Air 08/04 0400 95 Room Air 08/04 0119 98 Room Air 08/04 0000 97.2 68 18 116/60 98 Room Air 08/03 2202 97.3 62 18 120/57 96 Room Air 08/03 2057 97.0 67 18 145/75 96 Room Air 08/03 1954 97.9 68 18 136/77 97 Room Air 08/03 1852 67 18 138/68 96 Room Air Intake & Output 08/04 1600 08/04 0800 03/ 0000 Intake Total 1004 1437 1000 Output Total 200 200 Balance 804 1237 1000 Intake, IV 504 1117 1000 Intake, Oral 500 320 Number 1 Bowel Movements Output, Urine 200 200 Patient 100.698 kg Weight Physical Exam Other Physical Findings: Physical Examination: General: morbidly obese patient, not in distress Head: Normocephalic, atraumatic Eyes: Pupils normal in size, regular, reacting to light and accommodation, EOM normal Ears: B/l normal on inspection Nose: Normal on inspection Throat/mouth: Moist mucosa Neck: Supple, full range of motion, no thyromegaly Heart: Regular rate, regular rhythm Lung: Normal breath sound bilaterally Added sound not heard Abd: Soft, non-tender, no distention appreciated Back: Normal range of motion Extremities: Normal knee exam bilaterally, no pedal edema, Distal neurovascular intact Neurologic: Alert, oriented x3, Cranial exam grossly intact, Speech is clear and coherent Skin: Warm and dry Psychiatric: Calm, cooperative, coherant Last 48 Hrs of Labs/Unruly: Laboratory Tests 08/04/16 0600: Anion Gap 8, Estimated GFR 27 L, Glucose 158 H, Calcium 9.8, Phosphorus 3.0, Magnesium 1.6, Total Bilirubin 0.6, AST 32, ALT 29, Albumin 2.8 L, TSH 3.460, Free T4 1.04, CBC w Diff NO MAN DIFF REQ, RBC 2.88 L, MCV 94.8, MCH 32.4 H, RDW 14.7 H, MPV 10.3, Gran % 49.7, Lymphocytes % 38.3, Monocytes % 9.4 H, Eosinophils % 2.1, Basophils % 0.5, Absolute Granulocytes 1.8, Absolute Lymphocytes 1.4, Absolute Monocytes 0.3, Absolute Eosinophils 0.1, Absolute Basophils 0, PUBS MCHC 34.2 08/04/16 0200: Anion Gap 8, Estimated GFR 24 L, Glucose 185 H, Lactic Acid 1.5, Calcium 10.0, Phosphorus 2.9, Magnesium 1.8, Total Bilirubin 0.6, AST 28, ALT 32, Albumin 3.1 L 08/03/16 2245: Lactic Acid 2.9 H 08/03/16 2245: Anion Gap 10, Estimated GFR 24 L, Glucose 435 H, Calcium 10.1, Phosphorus 3.0, Magnesium 1.4 L, Total Bilirubin 0.6, AST 30, ALT 31, Albumin 3.5, PT 13.1 H, INR 1.25 H 08/03/16 2105: Sodium Cancelled, Potassium Cancelled, Chloride Cancelled, Carbon Dioxide Cancelled, Anion Gap Cancelled, BUN Cancelled, Creatinine Cancelled, BUN/ Creatinine Ratio Cancelled 08/03/16 1730: Urine Color YEL, Urine Clarity CLEAR, Urine pH 6.5, Ur Specific Buckley <= 1.005 , Urine Protein NEG, Urine Ketones NEG, Urine Nitrite NEG, Urine Bilirubin NEG, Urine Urobilinogen 0.2, Ur Leukocyte Esterase TRACE H, Ur Microscopic SEDIMENT EXAMINED, Urine RBC 3-5, Urine WBC 50-75 H, Ur Epithelial Cells FEW, Micro UA Comment BUDDING YEAST H, Urine Hemoglobin TRACE-INTACT, Urine Glucose >=1000 H 08/03/16 1715: Bicarbonate Actual 28 H, Mixed VBG pH 7.33, Mixed VBG pCO2 55 H, Mixed VBG O2 Saturation 31 L, Carboxyhemoglobin 0.4 L, O2 Concentration % R/A, Anion Gap 10 , Estimated GFR 22 L, BUN/Creatinine Ratio 23.2, Glucose 919 *H, Hemoglobin A1c 14.9 H, Serum Osmolality 339 H, Calcium 9.7, Magnesium 1.1 L, Total Bilirubin 0.8, AST 30, ALT 39, Alkaline Phosphatase 128 H, Troponin I < 0.01, Total Protein 6.0 L, Albumin 3.4 L, Globulin 2.6, Albumin/Globulin Ratio 1.3, Phlebotomy Draw Site VENOUS, Acetone Level NEGATIVE 08/03/16 1600: CBC w Diff NO MAN DIFF REQ, RBC 3.39 L, MCV 95.0, MCH 32.8 H, RDW 14.9 H, MPV 12.6 H, Gran % 76.7 H, Lymphocytes % 15.6 L, Monocytes % 6.2, Eosinophils % 1.2, Basophils % 0.3, Absolute Granulocytes 4.0, Absolute Lymphocytes 0.8 L, Absolute Monocytes 0.3, Absolute Eosinophils 0.1, Absolute Basophils 0, PUBS MCHC 34.5 Microbiology 08/03 1730 URINE ROUT: Urine Culture - COMP Diagnostic Data CXR Results IMPRESSION: Unchanged appearance of the chest with low lung volumes again seen. No evidence of pulmonary edema or central vascular congestion. DICTATED BY: ANTON PASTOR MD DATE/TIME DICTATED:08/04/16954 WHALE FISHERMAN:TAMMY DATE/TIME TRANSCRIBED:08/04/16954 Other Results ECHO: CONCLUSIONS Normal left ventricular systolic function with mild concentric hypertrophy. Borderline dilated left atrium. No significant valvular abnormalities noted. Monster Erazo M.D. (Electronically Signed) Final Date: 04 August 2016 17:49 Assessment/Plan Impression/Plan: 80-year-old female with past medical history of insulin-dependent type 2 diabetes mellitus, hyperlipidemia, hypertension, gout, liver cirrhosis of unknown type, portal hypertension with varices and gastropathy, restless leg syndrome, depression, GERD, presented to the emergency department with vaginal any urinary symptoms, and high blood sugar with no ketones. She is currently being managed in the ICU for the following issues: #Hyperosmolar hyperglycemic nonketotic state -Her blood sugar was 919, with normal anion gap, ketones negative -She has hyperosmolar hyperglycemic nonketotic state -Presumed perspiring factors urinary tract infection -There is no change in mentation -Patient received insulin drip in the emergency department and potassium supplements as well -Continue regular electrolytes rechecks and maintenance accordingly -Endocrinology consult appreciated -Per marine chronometer assembler, IV insulin drip has been stopped and long-acting insulin started along with before meal insulin coverage with regular Accu-Cheks, and diabetic diet -Likely cause of this states his urinary tract infection which is being empirically treated with IV ceftriaxone #Urinary tract infection -Urine has WBC 50-75 with leukocyte esterase positive although trace, pending culture reports -Have started patient on empirically on IV ceftriaxone. Continue that. #Vaginal candidiasis -Continue miconazole and Diflucan #Hypothyroidism -Thyroid function test appears to be within normal range -Continue home medication #Patient can be downgraded to general medicine, as her blood sugar, electrolytes are nearly normal range. She does not require intensive care unit anymore, and this has been discussed with marine chronometer assembler Dr García, who suggested the transfer. #Diet: Diabetic diet #DVT prophylaxis: ALPS #Code status: Full code Consult Acknowledgment - Thank you for your consult request. Heber NICK MD 08/04/16 0817: General Information and HPI Consulting Request Date of Consult: 08/04/16 Requested By: Dr. Waters Reason for Consult: CRCU management Source of Information: patient, old records Exam Limitations: no limitations Assessment/Plan Other Findings/Comments: I have personally seen and examined the patient and agree with the resident's assessment as above. Briefly, the patient is a 77-year-old female with a history of insulin-dependent type 2 diabetes, diabetic retinopathy, chronic renal insufficiency, hypercholesterolemia, hypertension, gout, reflux disease, RLS, cirrhosis, portal hypertension, esophageal varices, and gastropathy. The patient developed urinary frequency, vaginal swelling, and itching which began 2 weeks prior to admission. She subsequently developed increased thirst, urinary frequency and poor oral intake. Her BG was running high and she came to the ED, noting her BS was over 500. She was worked up and found to have uncontrolled DM secondary to a UTI and yeast infection. She was placed on an insulin drip, Ceftriaxone, miconazole and Diflucan. Her blood sugars are better controlled. She is tolerating a liquid diet without nausea or vomiting. Impression: 1. Uncontrolled DM in the setting of infection. 2. UTI and vaginal candidiasis infection. 3. Acute on chronic CKD secondary to dehydration, Cr improving with IVF hydration. 4. Anemia without evidence of bleeding, likely dilutional. 5. Thrombocytopenia, chronic, likely secondary to chronic liver disease. Plan: * Check blood cultures. * Follow up UC. * Continue ceftriaxone, miconazole and Diflucan. * Check a CXR. * Continue with electrolyte repletion. * Switch to Levemir and continue hydration per endocrinology. * Follow up thyroid function panel. * Advance diet as tolerated. * DVT prophylaxis. * Willl downgrade to Gen Med when cleared by endocrine. Consult Acknowledgment - Thank you for your consult request.
--- NOTE | 2016-08-04 07:34 | Cons- Endocrinology ---
General Information and HPI Consulting Request Date of Consult: 08/04/16 Requested By: medical team Reason for Consult: Uncontrolled diabetes Source of Information: patient, old records Exam Limitations: poor historian History of Present Illness: A 80-year-old woman has a known history of diabetes. 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 She also has chronic renal insufficiency. She has not checked her sugar in several days and does not usually pay close attention to her diabetes. She was on insulin at home including Lantus and fast acting insulin although she cannot tell me at this time what her usual doses are. The patient went to a walk-in clinic because of a yeast infection. When her sugar was found to be high she was sent to [facility] emergency room. There her sugar was 919 and she had evidence of acute superimposed on chronic renal insufficiency. She was admitted and during the night she was on an insulin drip. He also received normal saline. She now feels improved. At the present time the patient's insulin drip is at 2 units per hour and she is on D5 half-normal saline with 20 mEq of KCl at 1 25 mL per hour. Allergies/Medications Allergies: Coded Allergies: Opioids - Morphine Analogues (ITCH, GI UPSET 08/03/16) Opioids-Meperidine and Related (ITCH, GI UPSET 08/03/16) Opioids-Methadone and Related (ITCH, GI UPSET 08/03/16) codeine (GI UPSET 08/03/16) morphine (ITCHING, GI UPSET 08/03/16) Home Med List: Allopurinol (Zyloprim) 100 MG TABLET 1 TAB PO DAILY GOUT (Reported) Amlodipine Besylate 10 MG TABLET 1 TAB PO DAILY BP (Reported) Cholecalciferol (Vitamin D3) (Vitamin D) 5,000 UNIT TABLET 1 TAB PO DAILY SUPPLEMENT (Reported) Ciprofloxacin HCl (Cipro) 500 MG TABLET 500 MG PO BID URINE INFECTION Cyanocobalamin (Vitamin B-12) 1,000 MCG TABLET 1 TAB PO DAILY SUPPLEMENT ( Reported) Duloxetine HCl (Cymbalta) 60 MG CAPSULE.DR 1 CAP PO DAILY NERVE PAIN ( Reported) Furosemide (Lasix) 20 MG TABLET 60 MG PO BID DIURETIC (Reported) Reason to Stop at ADM: DEHYDRATED, JOHN, HHNS Gabapentin 300 MG CAPSULE 1 CAP PO BID NERVE PAIN (Reported) Reason to Stop at ADM: JOHN, MAY RESTART TOMORROW OR DAY AFTER Insulin Aspart (Novolog) 100 UNIT/ML VIAL 0 UNITS SC TIDAC/HS DM SLIDING SCALE: 80-150 4 UNITS 151-200 6 UNITS 201-250 8 UNITS 251-300 10 UNITS 301-350 12 UNITS 351-400 14 UNITS >400 16 UNITS AT BEDTIME 251-300 2 UNITS 301-350 3 UNITS 351-400 4 UNITS >400 5 UNITS Insulin Detemir (Levemir) 100 UNIT/ML VIAL 14 UNITS SC BID DM Levothyroxine Sodium 175 MCG TABLET 1 TAB PO DAILY THYROID (Reported) Lovastatin 20 MG TABLET 1 TAB PO DAILY CHOLESTEROL (Reported) Magnesium Oxide (Magnesium) 500 MG CAPSULE 1 CAP PO DAILY SUPPLEMENT ( Reported) Miconazole Nitrate 2 % CREAM.APPL 1 SANDEEP VAG BID FUNGAL INFECTION Mirabegron (Myrbetriq) 50 MG TAB.ER.24H 1 TAB PO DAILY BLADDER (Reported) Nadolol 20 MG TABLET 1 TAB PO DAILY BP (Reported) Omeprazole 40 MG CAPSULE.DR 1 CAP PO DAILY GI (Reported) Oxybutynin Chloride 5 MG TABLET 2.5 MG PO BID BLADDER IRRITABILITY Spironolactone (Aldactone) 50 MG TABLET 1 TAB PO BID DIURETIC (Reported) Reason to Stop at ADM: ON FLUIDS Review of Systems Review of Systems Constitutional: Denies: chills, fever. Cardiovascular: Denies: chest pain, palpitations. Respiratory: Denies: short of breath. Genitourinary: Reports: discharge, dysuria. Musculoskeletal: Denies: joint swelling. Past History Travel History Traveled to [place] past 21 day No Medical History Blood Transfusion Hx: No Neurological: dizziness Cardiovascular: hypertension, hyperlipidemia Gastrointestinal: GERD, portal hypertension, gastropathy varices Hepatic: cirrhosis Renal: urinary incontinence Musculoskeletal: gout, restless leg syndrome Psychiatric: depression Endocrine: diabetes, hypothyroidism Blood Disorders: thrombocytopenia Other Medical Hx: Urinary incontinence Surgical History Surgical History: appendectomy, cholecystectomy, hysterectomy, BILAT KNEE REPLACEMENTS Family History Relations & Conditions If Any: FATHER (Had a history of brain aneurysm and of stroke at the age of 73). MOTHER (Mother at the age of 26 years, unknown cause). Psychosocial History Where Do You Live? Home Who Do You Live With? spouse Services at Home: None Primary Language: Persian Smoking Status: Never Smoked ETOH Use: occasional use Illicit Drug Use: denies illicit drug use Living Will? no Functional Ability ADLs Independent: dressing, eating, toileting, bathing. Ambulation: independent IADLs Independent: shopping, housework, finances, food prep, telephone, medication admin. Needs Assist: transportation. 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 Exam & Diagnostic Data Last 24 Hrs of Vital Signs/I&O Vital Signs Date Time Temp Pulse Resp B/P Pulse O2 O2 Flow FiO2 Ox Delivery Rate 08/04 0119 98 Room Air 03/07 0000 97.2 68 18 116/60 98 Room Air 03/ 2202 97.3 62 18 120/57 96 Room Air 03/ 2057 97.0 67 18 145/75 96 Room Air 03/ 1954 97.9 68 18 136/77 97 Room Air 03/ 1852 67 18 138/68 96 Room Air 03/ 1600 Room Air 03/ 1537 96.5 72 20 160/99 96 Room Air Intake & Output 08/04 0800 / 0000 03/06 1600 Intake Total 1000 Output Total Balance 1000 Intake, IV 1000 Patient 222 lb 204 lb Weight Vital Signs Date Time Temp Pulse Resp B/P Pulse O2 O2 Flow FiO2 Ox Delivery Rate 08/04 0119 98 Room Air 03/07 0000 97.2 68 18 116/60 98 Room Air 03/ 2202 97.3 62 18 120/57 96 Room Air /7 97.0 67 18 145/75 96 Room Air 03/ 1954 97.9 68 18 136/77 97 Room Air 03/06 1852 67 18 138/68 96 Room Air 03/06 1600 Room Air 03/06 1537 96.5 72 20 160/99 96 Room Air Intake & Output 08/04 0800 / 0000 03/06 1600 Intake Total 1000 Output Total Balance 1000 Intake, IV 1000 Patient 222 lb 204 lb Weight Physical Exam General Appearance: alert, awake, comfortable Head: normal appearance Neck: normal inspection Respiratory: normal breath sounds Cardiovascular: regular rate/rhythm Gastrointestinal: normal bowel sounds, soft Extremities: no edema Labs/Unruly Results: Laboratory Tests 08/04 08/04 03/ 0600 0200 2245 Chemistry Sodium (137 - 145 mmol/L) 134 L 135 L Potassium (3.5 - 5.1 mmol/L) 4.2 3.9 Chloride (98 - 107 mmol/L) 98 97 L Carbon Dioxide (22 - 30 mmol/L) 28 30 Anion Gap (5 - 16) 8 8 BUN (7 - 17 mg/dL) 45 H 47 H Creatinine (0.5 - 1.0 mg/dL) 1.8 H 2.0 H Estimated GFR (>60 ml/min) 27 L 24 L Glucose (65 - 99 mg/dL) 158 H 185 H Lactic Acid (0.7 - 2.1 mmol/L) 1.5 2.9 H Calcium (8.4 - 10.2 mg/dL) 9.8 10.0 Phosphorus (2.5 - 4.5 mg/dL) 3.0 2.9 Magnesium (1.6 - 2.3 mg/dL) 1.6 1.8 Total Bilirubin (0.2 - 1.3 mg/dL) 0.6 0.6 AST (14 - 36 U/L) 32 28 ALT (9 - 52 U/L) 29 32 Albumin (3.5 - 5.0 g/dL) 2.8 L 3.1 L Hematology CBC w Diff NO MAN DIFF REQ WBC (4.8 - 10.8 /CUMM) 3.7 L RBC (4.20 - 5.40 /CUMM) 2.88 L Hgb (12.0 - 16.0 G/DL) 9.3 L Hct (37 - 47 %) 27.3 L MCV (81.0 - 99.0 FL) 94.8 MCH (27.0 - 31.0 PG) 32.4 H RDW (11.5 - 14.5 %) 14.7 H Plt Count (130 - 400 /CUMM) 52 L MPV (7.4 - 10.4 FL) 10.3 Gran % (42.2 - 75.2 %) 49.7 Lymphocytes % (20.5 - 51.1 %) 38.3 Monocytes % (1.7 - 9.3 %) 9.4 H Eosinophils % (0 - 5 %) 2.1 Basophils % (0.0 - 2.0 %) 0.5 Absolute Granulocytes (1.4 - 6.5 /CUMM) 1.8 Absolute Lymphocytes (1.2 - 3.4 /CUMM) 1.4 Absolute Monocytes (0.10 - 0.60 /CUMM) 0.3 Absolute Eosinophils (0.0 - 0.7 /CUMM) 0.1 Absolute Basophils (0.0 - 0.2 /CUMM) 0 PUBS MCHC (33.0 - 37.0 G/DL) 34.2 08/03 08/03 08/03 2245 2105 1730 Chemistry Sodium (137 - 145 mmol/L) 133 L Cancelled Potassium (3.5 - 5.1 mmol/L) 4.0 Cancelled Chloride (98 - 107 mmol/L) 94 L Cancelled Carbon Dioxide (22 - 30 mmol/L) 29 Cancelled Anion Gap (5 - 16) 10 Cancelled BUN (7 - 17 mg/dL) 50 H Cancelled Creatinine (0.5 - 1.0 mg/dL) 2.0 H Cancelled Estimated GFR (>60 ml/min) 24 L BUN/Creatinine Ratio Cancelled Glucose (65 - 99 mg/dL) 435 H Calcium (8.4 - 10.2 mg/dL) 10.1 Phosphorus (2.5 - 4.5 mg/dL) 3.0 Magnesium (1.6 - 2.3 mg/dL) 1.4 L Total Bilirubin (0.2 - 1.3 mg/dL) 0.6 AST (14 - 36 U/L) 30 ALT (9 - 52 U/L) 31 Albumin (3.5 - 5.0 g/dL) 3.5 Coagulation PT (9.4 - 12.5 SEC) 13.1 H INR (0.90 - 1.19) 1.25 H Urines Urine Color (YEL,AMB,STR) YEL Urine Clarity (CLEAR) CLEAR Urine pH (5.0 - 8.0) 6.5 Ur Specific [place] (1.001 - 1.035) <= 1.005 Urine Protein (NEG,<30 MG/DL) NEG Urine Ketones (NEG) NEG Urine Nitrite (NEG) NEG Urine Bilirubin (NEG) NEG Urine Urobilinogen (0.1 - 1.0 EU/dl) 0.2 Ur Leukocyte Esterase (NEG) TRACE H Ur Microscopic SEDIMENT EXAMINED Urine RBC (0 - 5 /HPF) 3-5 Urine WBC (0 - 2 /HPF) 50-75 H Ur Epithelial Cells (NONE,FEW) FEW Micro UA Comment BUDDING YEAST H Urine Hemoglobin (NEG) TRACE-INTACT Urine Glucose (N MG/DL) >=1000 H 08/03 08/03 1715 1600 Blood Gas Bicarbonate Actual (22 - 26 MEQ/L) 28 H Mixed VBG pH (7.31 - 7.41 PH) 7.33 Mixed VBG pCO2 (41 - 51 TORR) 55 H Mixed VBG O2 Saturation (35 - 45 TORR) 31 L Carboxyhemoglobin (1.5 - 5.0 %) 0.4 L O2 Concentration % R/A Chemistry Sodium (137 - 145 mmol/L) 124 L Potassium (3.5 - 5.1 mmol/L) 5.3 H Chloride (98 - 107 mmol/L) 86 L Carbon Dioxide (22 - 30 mmol/L) 28 Anion Gap (5 - 16) 10 BUN (7 - 17 mg/dL) 51 H Creatinine (0.5 - 1.0 mg/dL) 2.2 H Estimated GFR (>60 ml/min) 22 L BUN/Creatinine Ratio (7 - 25 %) 23.2 Glucose (65 - 99 mg/dL) 919 *H Hemoglobin A1c (4.2 - 5.8 %) Pending Serum Osmolality (285 - 295 MOSM/KG) 339 H Calcium (8.4 - 10.2 mg/dL) 9.7 Magnesium (1.6 - 2.3 mg/dL) 1.1 L Total Bilirubin (0.2 - 1.3 mg/dL) 0.8 AST (14 - 36 U/L) 30 ALT (9 - 52 U/L) 39 Alkaline Phosphatase (<127 U/L) 128 H Troponin I (< 0.11 ng/ml) < 0.01 Total Protein (6.3 - 8.2 g/dL) 6.0 L Albumin (3.5 - 5.0 g/dL) 3.4 L Globulin (1.9 - 4.2 gm/dL) 2.6 Albumin/Globulin Ratio (1.1 - 2.2 %) 1.3 Hematology CBC w Diff NO MAN DIFF REQ WBC (4.8 - 10.8 /CUMM) 5.2 RBC (4.20 - 5.40 /CUMM) 3.39 L Hgb (12.0 - 16.0 G/DL) 11.1 L Hct (37 - 47 %) 32.2 L MCV (81.0 - 99.0 FL) 95.0 MCH (27.0 - 31.0 PG) 32.8 H RDW (11.5 - 14.5 %) 14.9 H Plt Count (130 - 400 /CUMM) 64 L MPV (7.4 - 10.4 FL) 12.6 H Gran % (42.2 - 75.2 %) 76.7 H Lymphocytes % (20.5 - 51.1 %) 15.6 L Monocytes % (1.7 - 9.3 %) 6.2 Eosinophils % (0 - 5 %) 1.2 Basophils % (0.0 - 2.0 %) 0.3 Absolute Granulocytes (1.4 - 6.5 /CUMM) 4.0 Absolute Lymphocytes (1.2 - 3.4 /CUMM) 0.8 L Absolute Monocytes (0.10 - 0.60 /CUMM) 0.3 Absolute Eosinophils (0.0 - 0.7 /CUMM) 0.1 Absolute Basophils (0.0 - 0.2 /CUMM) 0 PUBS MCHC (33.0 - 37.0 G/DL) 34.5 Miscellaneous Phlebotomy Draw Site VENOUS Toxicology Acetone Level (NEGATIVE) NEGATIVE Assessment/Plan Assessment/Plan This 80-year-old woman presented with uncontrolled diabetes, superimposed on chronic renal insufficiency, elevated lactic acid with a yeast infection and possible urinary tract infection. The patient has improved with hydration and an insulin drip. At this time we can switch her to subcutaneous insulin. Suggest begin Levemir 14 units twice a da first dose stat. We should also begin sliding scale NovoLog for meals. Sliding-scale NovoLog before meals should be 80-150 give or units NovoLog, 151-200 give 6 units NovoLog, 201-250 give 8 units NovoLog, 251-300 give 10 units NovoLog, 301-350 give 12 units NovoLog, 351-400 give 14 units NovoLog. A separate bedtime sliding-scale NovoLog should be written. Bedtime sliding- scale NovoLog should be less than 250 give no insulin, 251-300 give 2 units NovoLog, 301-350 give 3 units NovoLog, 351-400 give 4 units NovoLog. The patient should be started on a diabetic diet. One hour after the first dose of Levemir and the first dose of NovoLog we can stop the insulin drip. In addition fluids could be tapered to 50 mL an hour as long as the patient is eating and drinking well. The patient should have had blood cultures done in the ER before antibiotics were started. Await the urine cultur We should check the patient's record function tests including a free T4 and TSH' s the patient is on thyroid hormone. This may need further adjustment. Consult Acknowledgment - Thank you for your consult request.
[2016-08-04 08:00] VITALS: BP 140/70
--- NOTE | 2016-08-04 09:18 | NUR ---
REC'D THE PT AT 0830 SITING UP IN BED EATING BREAKFST. OFFERS NO C/O. MEDICATED WITH LEVEMIR 14U SQ TO THE RA AT 0830-INSULIN GTT TO BE STOPPED AT 0930. FSG WAS 196 AT 0820. PT IS TO BE STARTED ON A CONC CARB 2 DIET FOR LUNCH ALONG WITH RISS. PT IS A&OX3, MEADE. PT IS IN A NSR WITH OCC PAC'S. IVF IF D5 1/2NS WITH KCL 20MEQ DECREASED FROM 125ML/HR TO 50ML/HR AT 0830 PER MD ORDER. THE INSULIN GTT IS INFUSING VIA A RH #22 AND THE IVF IS INFUSING VIA A #20 TO THE RF. FANTASMA BS ARE CLEAR WITH AN O2 SAT OF 98% ON ROOM AIR. ABD IS SOFT WITH NORMOACTIVE BOWEL SOUNDS. PT HAD AMBULATED TO THE BATHROOM AT THE CHANGE OF SHIFT.
--- NOTE | 2016-08-04 10:02 | RADIOLOGY REPORT ---
EXAMINATION: XR PORTABLE CHEST CLINICAL INFORMATION: History of being on Lasix which is held. Patient is getting lots of fluids. Assess for respiratory status and fluid overload. COMPARISON: Chest x-ray dated 04/13/2013. TECHNIQUE: Portable AP semierect view of the chest was obtained. FINDINGS: The cardiomediastinal silhouette is normal in size. Calcification and tortuosity of the aorta is again seen. Low lung volumes are present with minimal elevation of the right hemidiaphragm, unchanged. No focal consolidation, effusion or pneumothorax is seen. Slight indistinctness of the CP angles is consistent with overlapping soft tissues. Mild vertebral spondylosis is seen in the mid and lower thoracic spine. IMPRESSION: Unchanged appearance of the chest with low lung volumes again seen. No evidence of pulmonary edema or central vascular congestion.
--- NOTE | 2016-08-04 12:17 | NUR ---
PT'S BP MANUALLY WAS 114/60 AT 1145. VOMITED A SMALL AMOUNT OF SOUP IMMEDIATELY AFTER INGESTING AT 1200. AUTOCUFF BP WAS 158/80 IMMEDIATELY AFTER VOMITING EPISODE. WILL CONTINUE TO MONITOR.
--- NOTE | 2016-08-04 14:16 | NUR ---
PT HAVING A BEDSIDE ECHO PERFORMED
[2016-08-04 16:00] VITALS: BP 102/66
--- NOTE | 2016-08-04 17:50 | ECHOCARDIOGRAM REPORT ---
ANGELA LEMOS Age: 80 : 1935 Gender: F Exam Date: 08/04/2016 14:14 Exam Location: [facility] Ht (in): 66 Wt (lb): 222 BSA: 2.21 BP: 119 / 66 Ordering Physician: MARISEL RUIZ MD Referring Physician: Monster Erazo MD Technologist: Alize Johnson [facility] Room Number: 104 Indications: HEART FAILURE Rhythm: Sinus Technical Quality: Fair to poor FINDINGS Left Ventricle Normal size left ventricle. Left ventricular wall thickness mildly increased. Normal left ventricular ejection fraction estimated at 60-65%. Right Ventricle Normal right ventricular size and function. Right Atrium Normal right atrial size. Left Atrium Left atrial size at the upper limits of normal. Mitral Valve Mitral valve normal in structure and function. Trace to mild mitral regurgitation. Aortic Valve Aortic valve is normal in structure and function. Tricuspid Valve Tricuspid valve is normal in structure and function. Trace to mild tricuspid regurgitation. Right ventricular systolic pressure estimated to be within the normal range at 25 mmHg. Pulmonic Valve Pulmonic valve not well visualized, grossly normal. Pericardium No pericardial effusion. Great Vessels Normal size aortic root. CONCLUSIONS Normal left ventricular systolic function with mild concentric hypertrophy. Borderline dilated left atrium. No significant valvular abnormalities noted. Monster Erazo M.D. (Electronically Signed) Final Date: 04 August 2016 17:49 MEASUREMENTS (Male / Female) Normal Values 2D ECHO LV Diastolic Diameter PLAX 4.5 cm 4.2 - 5.9 / 3.9 - 5.3 cm LV Systolic Diameter PLAX 2.3 cm 2.1 - 4.0 cm LV Fractional Shortening PLAX 48.9 % 25 - 46 % LV Ejection Fraction 2D Teich 80.4 % IVS Diastolic Thickness 1.2 cm LVPW Diastolic Thickness 1.2 cm LV Relative Wall Thickness 0.5 RV Internal Dim ED PLAX 3.1 cm 1.9 - 3.8 cm LVOT Diameter 2.0 cm Aortic Root Diameter 2.8 cm LA Systolic Diameter LX 3.7 cm 3.0 - 4.0 / 2.7 - 3.8 cm LA Volume 44.0 cm 18 - 58 / 22 - 52 cm Ascending Aorta Diameter 3.7 cm DOPPLER AV Peak Velocity 123.0 cm/s AV Peak Gradient 6.1 mmHg AV Mean Velocity 90.2 cm/s AV Mean Gradient 4.0 mmHg AV Velocity Time Integral 29.8 cm LVOT Peak Velocity 85.6 cm/s LVOT Peak Gradient 2.9 mmHg LVOT Mean Velocity 61.9 cm/s LVOT Mean Gradient 2.0 mmHg LVOT Velocity Time Integral 21.4 cm LVOT Stroke Volume 67.2 cm AV Area Cont Eq vti 2.3 cm AV Area Cont Eq pk 2.2 cm MV Peak Velocity 88.8 cm/s MV Peak Gradient 3.2 mmHg MV Mean Velocity 46.7 cm/s MV Mean Gradient 1.0 mmHg Mitral E Point Velocity 77.6 cm/s Mitral A Point Velocity 55.4 cm/s Mitral E to A Ratio 1.4 MV PHT Velocity 90.8 cm/s MV Deceleration [place] 327.0 cm/s MV Pressure Half Time 83.3 ms MV Area PHT 2.6 cm MV Deceleration Time 215.0 ms TR Peak Velocity 223.0 cm/s TR Peak Gradient 19.9 mmHg Right Atrial Pressure 5.0 mmHg Pulmonary Artery Systolic Pressu 24.9 mmHg Right Ventricular Systolic Press 24.9 mmHg PV Peak Velocity 86.8 cm/s PV Peak Gradient 3.0 mmHg PV Mean Velocity 62.3 cm/s PV Mean Gradient 2.0 mmHg PV Velocity Time Integral 22.4 cm LV E' Lateral Velocity 8.5 cm/s Mitral E to LV E' Lateral Ratio 9.1 LV E' Septal Velocity 5.7 cm/s Mitral E to LV E' Septal Ratio 13.6
[2016-08-05] VITALS: BP 117/66
[2016-08-05 05:20] LABS: ABSOLUTE BASOPHIL COUNT 0 /CUMM (0.0-0.2); ABSOLUTE EOSINOPHIL COUNT 0.1 /CUMM (0.0-0.7); ABSOLUTE GRANULOCYTE CT 2.4 /CUMM (1.4-6.5); ABSOLUTE LYMPH COUNT 1.5 /CUMM (1.2-3.4); ABSOLUTE MONOCYTE COUNT 0.4 /CUMM (0.10-0.60); BASOPHIL % 0.4 % (0.0-2.0); EOSINOPHIL % 1.6 % (0-5); GRANULOCYTE % 55.6 % (42.2-75.2); HEMATOCRIT 30.4 % (37-47); MEAN CORPUSCULAR HGB 32.5 PG (27.0-31.0); MEAN CORPUSCULAR HGB CONC 33.9 G/DL (33.0-37.0); MEAN PLATELET VOLUME 11.4 FL (7.4-10.4); PLATELET COUNT 59 /CUMM (130-400); RBC DISTRIBUTION WIDTH 14.9 % (11.5-14.5); RED BLOOD CELL CT 3.17 /CUMM (4.20-5.40); WHITE BLOOD CELL COUNT 4.3 /CUMM (4.8-10.8)
--- NOTE | 2016-08-05 06:52 | PN- Resident CRCU ---
Subjective HPI/CRCU Issues: Patient in ICU as a general medicine hold patient for hyperosmolar hyperglycemic nonketotic state. I followed up and examined the patient today. See is resting comfortably in the bed, is alert, oriented, comfortable, not in any distress, does not have any complaints. Vitals have been stable, blood sugar lowering down, and no issues overnight. Objective Vital Signs & I&O Last 8 Hrs of Vitals and I&O: Vital Signs Date Time Temp Pulse Resp B/P Pulse O2 O2 Flow FiO2 Ox Delivery Rate 08/05 0000 96 08/05 0000 98.4 72 24 117/66 96 Room Air 08/04 1600 97.6 56 18 102/66 96 Room Air 08/04 1200 97 Room Air Room Air Intake & Output 08/05 1600 08/05 0800 08/05 0000 Intake Total 240 220 Output Total 300 Balance 240 -80 Intake, IV 0 Intake, Oral 240 220 Number 0 Bowel Movements Output, Urine 300 Exam General Appearance: no apparent distress, alert, awake, comfortable, obese Other Physical Findings: Head: Normocephalic, atraumatic Eyes: Pupils normal in size, regular, reacting to light and accommodation, EOM normal Ears: B/l normal on inspection Nose: Normal on inspection Throat/mouth: Moist mucosa Neck: Supple, full range of motion, no thyromegaly Heart: Regular rate, regular rhythm Lung: Normal breath sound bilaterally Added sound not heard Abd: Soft, non-tender, no distention appreciated Back: Normal range of motion Extremities: Normal knee exam bilaterally, no pedal edema, Distal neurovascular intact, left elbow mild tenderness present, range of motion normal Neurologic: Alert, oriented x3, Cranial exam grossly intact, Speech is clear and coherent Skin: Warm and dry Psychiatric: Calm, cooperative, coherant Nutrition Nutrition: P.O. diet Current Medications: Current Medications Sig/Jennifer Start time Last Medication Dose Route Stop Time Status Admin Acetaminophen 650 MG .STK-MED ONE 08/04 1953 DC PO 08/04 1954 Acetaminophen 650 MG Q6P PRN 08/03 2099 AC 08/04 PO 1956 Acetaminophen 1,000 MG Q6P PRN 08/03 2100 AC IV Allopurinol 100 MG DAILY 08/03 2200 AC 08/05 PO 1050 Amlodipine Besylate 10 MG DAILY 08/04 1000 AC 08/05 PO 1051 Atorvastatin Calcium 5 MG 1700 08/04 1700 AC 08/04 PO 1643 Ceftriaxone Sodium 1,000 MG DAILY 08/04 1000 AC 08/05 IV 1051 Cholecalciferol 5,000 IU DAILY 08/04 1000 AC 08/05 PO 1050 Cyanocobalamin 1,000 MCG DAILY 08/04 1000 AC 08/05 PO 1051 Duloxetine HCl 60 MG DAILY 08/04 1000 AC 08/05 PO 1051 Fluconazole 200 MG DAILY 08/04 1000 AC 08/05 PO 1051 Insulin Aspart 0 TIDAC/HS 08/04 1200 AC 08/05 SC 0833 Insulin Detemir 14 UNITS BID 08/04 0815 AC 08/04 SC 2121 Levothyroxine Sodium 0.175 MG DAILY AC 08/04 0700 AC 08/05 PO 0633 Lidocaine 1 PAT DAILY 08/04 2000 AC 08/05 EXT 1048 Magnesium Oxide 400 MG BID 08/05 1000 AC 08/05 PO 1051 Magnesium Oxide 400 MG DAILY 08/04 1000 DC 08/04 PO 0954 Melatonin 5 MG ONCE ONE 08/05 0300 DC 08/05 PO 08/05 0301 0314 Miconazole Nitrate 1 SANDEEP BID 08/04 0130 AC 08/04 VAG 2125 Nadolol 20 MG DAILY 08/04 1000 AC 08/05 PO 1051 Omeprazole 40 MG DAILY AC 08/04 0700 AC 08/05 PO 0633 Ondansetron HCl 4 MG ONCE ONE 08/05 0745 DC 08/05 IV 08/05 0746 0830 Oxybutynin Chloride 2.5 MG BID 08/04 1000 AC 08/05 PO 1051 Potassium Chloride 20 MEQ Q8H 08/04 0115 DC 08/04 Dextrose/Sodium 1,000 ML IV 0828 Chloride Impression/Plan Impression/Problem List Impression: 80-year-old female with past medical history of insulin-dependent type 2 diabetes mellitus, hyperlipidemia, hypertension, gout, liver cirrhosis of unknown type, portal hypertension with varices and gastropathy, restless leg syndrome, depression, GERD, presented to the emergency department with vaginal any urinary symptoms, and high blood sugar with no ketones. She is currently being managed in the ICU as general medicine hold for the following issues: #Hyperosmolar hyperglycemic nonketotic state, improved -Her blood sugar was 919, with normal anion gap, ketones negative, she was in hyperosmolar hyperglycemic nonketotic state -Presumed perspiring factors urinary tract infection, receiving abx d2 -blood sugar getting better, 157 this AM, anion gap still normal at 8 -Endocrinology consult appreciated, will follow #Urinary tract infection -Urine has WBC 50-75 with leukocyte esterase positive although trace, pending culture reports -Have started patient on empirically on IV ceftriaxone. Continue that. #Vaginal candidiasis -Continue miconazole and Diflucan #Hypothyroidism -Thyroid function test appears to be within normal range -Continue home medication #Diet: Diabetic diet #DVT prophylaxis: ALPS #Code status: Full code Problem List: 1. Diabetes mellitus with hyperosmolarity 2. Urinary tract infection 3. Tinea cruris 4. Hypothyroid Pain Ratin Tomorrow's Labs & Rationales: CBC, ICU buldle Plan DVT/Prophylaxis: mechanical
--- NOTE | 2016-08-05 07:41 | PN- Diabetes ---
Assessment/Plan Assessment: The patient feels improved. She does have some nausea. She did not eat a lot yesterday. Urine culture shows multiple organisms consistent with contamination. The patient's blood sugars are coming down with last sugar before supper yesterday 256, bedtime 212, and this morning in the lab sugar is 162 fasting. The patient's renal function is improving with a creatinine of 1.6 sodium 134 and potassium 4.7. Plan: Suggest at this time I would continue the present insulin. Increase activity. Continue to monitor her sugars 4 times a day. Subjective Subjective: Feels slightly nauseated Review of Systems Constitutional: Denies: chills, fever. Cardiovascular: Denies: chest pain. Respiratory: Denies: cough, short of breath. Gastrointestinal: Denies: constipation. Skin: Reports: no symptoms. Neurological/Psychological: Denies: anxiety. Objective Last 24 Hrs of Vital Signs/I&O Vital Signs Date Time Temp Pulse Resp B/P Pulse O2 O2 Flow FiO2 Ox Delivery Rate 08/05 0000 96 08/05 0000 98.4 72 24 117/66 96 Room Air 08/04 1600 97.6 56 18 102/66 96 Room Air / 1200 97 Room Air Room Air / 0955 96.9 63 16 119/66 /07 0954 96.9 63 16 119/66 / 0800 98 Room Air Room Air / 0800 96.9 70 20 140/70 98 Room Air Room Air Intake & Output 08/05 0800 / 0000 08/04 1600 Intake Total 319 598 3614 Output Total 300 200 Balance 240 -80 804 Intake, IV 0 504 Intake, Oral 240 220 500 Number 0 1 Bowel Movements Output, Urine 300 200 Physical Exam General Appearance: alert, awake, comfortable Head: normal appearance Neck: normal inspection Cardiovascular: regular rate/rhythm Abdomen: normal bowel sounds Extremities: normal inspection Current Medications: Current Medications Sig/Jennifer Start time Last Medication Dose Route Stop Time Status Admin Acetaminophen 650 MG .STK-MED ONE 08/04 1953 DC PO 08/04 1954 Acetaminophen 650 MG Q6P PRN 08/03 2100 AC 08/04 PO 1956 Acetaminophen 1,000 MG Q6P PRN 08/03 2100 AC IV Allopurinol 100 MG DAILY 08/03 2200 AC 08/04 PO 0954 Amlodipine Besylate 10 MG DAILY 08/04 1000 AC 08/04 PO 0954 Atorvastatin Calcium 5 MG 1700 08/04 1700 AC 08/04 PO 1643 Ceftriaxone Sodium 1,000 MG DAILY 08/04 1000 AC 08/04 IV 0956 Cholecalciferol 5,000 IU DAILY 08/04 1000 AC 08/04 PO 0952 Cyanocobalamin 1,000 MCG DAILY 08/04 1000 AC 08/04 PO 0953 Duloxetine HCl 60 MG DAILY 08/04 1000 AC 08/04 PO 0954 Fluconazole 200 MG DAILY 08/04 1000 AC 08/04 PO 0955 Insulin Aspart 0 TIDAC/HS 08/04 1200 AC 08/04 SC 1642 Insulin Detemir 14 UNITS BID 08/04 0815 AC 08/04 SC 2121 Insulin Human Regular 100 UNIT Q24H 08/03 2100 DC 08/04 Sodium Chloride 100 ML IV 0027 Levothyroxine Sodium 0.175 MG DAILY AC 08/04 0700 AC 08/05 PO 0633 Lidocaine 1 PAT DAILY 08/04 2000 AC 08/04 EXT 2147 Magnesium Oxide 400 MG BID 08/05 1000 AC PO Magnesium Oxide 400 MG DAILY 08/04 1000 DC 08/04 PO 0954 Magnesium Oxide 400 MG ONE ONE 08/04 0830 CAN PO 08/04 0831 Melatonin 5 MG ONCE ONE 08/05 0300 DC 08/05 PO 08/05 0301 0314 Miconazole Nitrate 1 SANDEEP BID 08/04 0130 AC 08/04 VAG 2125 Nadolol 20 MG DAILY 08/04 1000 AC 08/04 PO 0955 Omeprazole 40 MG DAILY AC 08/04 0700 AC 08/05 PO 0633 Ondansetron HCl 4 MG ONCE ONE 08/05 0745 UNVr IV 08/05 0746 Oxybutynin Chloride 2.5 MG BID 08/04 1000 AC 08/04 PO 2124 Potassium Chloride 20 MEQ Q8H 08/04 0115 DC 08/04 Dextrose/Sodium 1,000 ML IV 0828 Chloride Potassium Chloride 20 MEQ Q8H 08/03 2330 DC 08/04 Sodium Chloride 1,000 ML IV 0028 Findings Pertinent Lab/Unruly Results: Laboratory Tests 08/05 0323 Chemistry Sodium (137 - 145 mmol/L) 134 L Potassium (3.5 - 5.1 mmol/L) 4.7 Chloride (98 - 107 mmol/L) 100 Carbon Dioxide (22 - 30 mmol/L) 26 Anion Gap (5 - 16) 8 BUN (7 - 17 mg/dL) 39 H Creatinine (0.5 - 1.0 mg/dL) 1.6 H Estimated GFR (>60 ml/min) 31 L Glucose (65 - 99 mg/dL) 162 H Calcium (8.4 - 10.2 mg/dL) 9.8 Phosphorus (2.5 - 4.5 mg/dL) 2.6 Magnesium (1.6 - 2.3 mg/dL) 1.4 L Total Bilirubin (0.2 - 1.3 mg/dL) 0.6 AST (14 - 36 U/L) 43 H ALT (9 - 52 U/L) 37 Albumin (3.5 - 5.0 g/dL) 2.9 L Hematology CBC w Diff NO MAN DIFF REQ WBC (4.8 - 10.8 /CUMM) 4.3 L RBC (4.20 - 5.40 /CUMM) 3.17 L Hgb (12.0 - 16.0 G/DL) 10.3 L Hct (37 - 47 %) 30.4 L MCV (81.0 - 99.0 FL) 96.0 MCH (27.0 - 31.0 PG) 32.5 H RDW (11.5 - 14.5 %) 14.9 H Plt Count (130 - 400 /CUMM) 59 L MPV (7.4 - 10.4 FL) 11.4 H Gran % (42.2 - 75.2 %) 55.6 Lymphocytes % (20.5 - 51.1 %) 34.0 Monocytes % (1.7 - 9.3 %) 8.4 Eosinophils % (0 - 5 %) 1.6 Basophils % (0.0 - 2.0 %) 0.4 Absolute Granulocytes (1.4 - 6.5 /CUMM) 2.4 Absolute Lymphocytes (1.2 - 3.4 /CUMM) 1.5 Absolute Monocytes (0.10 - 0.60 /CUMM) 0.4 Absolute Eosinophils (0.0 - 0.7 /CUMM) 0.1 Absolute Basophils (0.0 - 0.2 /CUMM) 0 PUBS MCHC (33.0 - 37.0 G/DL) 33.9
--- NOTE | 2016-08-05 07:51 | PN- CRCU ---
Subjective HPI/Critical Care Issues: The patient is awake and alert. She feels better overall however she is complaining of nausea this morning. Patient's blood sugars are improved and she is off the insulin drip. Her appetite is poor. Her renal function continues to improve. Urine culture shows multiple organisms consistent with contamination. Objective Current Medications: Current Medications Sig/Jennifer Start time Last Medication Dose Route Stop Time Status Admin Acetaminophen 650 MG .STK-MED ONE 08/04 1953 DC PO 08/04 1954 Acetaminophen 650 MG Q6P PRN 08/03 2100 AC 08/04 PO 195 Acetaminophen 1,000 MG Q6P PRN 08/03 2100 AC IV Allopurinol 100 MG DAILY 08/03 2200 AC 08/04 PO 0954 Amlodipine Besylate 10 MG DAILY 08/04 1000 AC 08/04 PO 0954 Atorvastatin Calcium 5 MG 1700 08/04 1700 AC 08/04 PO 1643 Ceftriaxone Sodium 1,000 MG DAILY 08/04 1000 AC 08/04 IV 0956 Cholecalciferol 5,000 IU DAILY 08/04 1000 AC 08/04 PO 0952 Cyanocobalamin 1,000 MCG DAILY 08/04 1000 AC 08/04 PO 0953 Duloxetine HCl 60 MG DAILY 08/04 1000 AC 08/04 PO 0954 Fluconazole 200 MG DAILY 08/04 1000 AC 08/04 PO 0955 Insulin Aspart 0 TIDAC/HS 08/04 1200 AC 08/04 SC 1642 Insulin Detemir 14 UNITS BID 08/04 0815 AC 08/04 SC 2121 Insulin Human Regular 100 UNIT Q24H 08/03 2100 DC 08/04 Sodium Chloride 100 ML IV 0027 Levothyroxine Sodium 0.175 MG DAILY AC 08/04 0700 AC 08/05 PO 0633 Lidocaine 1 PAT DAILY 08/04 2000 AC 08/04 EXT 2147 Magnesium Oxide 400 MG BID 08/05 1000 AC PO Magnesium Oxide 400 MG DAILY 08/04 1000 DC 08/04 PO 0954 Magnesium Oxide 400 MG ONE ONE 08/04 0830 CAN PO 08/04 0831 Melatonin 5 MG ONCE ONE 08/05 0300 DC 08/05 PO 08/05 0301 0314 Miconazole Nitrate 1 SANDEEP BID 08/04 0130 AC 08/04 VAG 2125 Nadolol 20 MG DAILY 08/04 1000 AC 08/04 PO 0955 Omeprazole 40 MG DAILY AC 08/04 0700 AC 08/05 PO 0633 Ondansetron HCl 4 MG ONCE ONE 08/05 0645 AC IV 08/05 0746 Oxybutynin Chloride 2.5 MG BID 08/04 1000 AC 08/04 PO 2124 Potassium Chloride 20 MEQ Q8H 08/04 0115 DC 08/04 Dextrose/Sodium 1,000 ML IV 0828 Chloride Potassium Chloride 20 MEQ Q8H 08/03 2330 DC 08/04 Sodium Chloride 1,000 ML IV 0028 Vital Signs & I&O Last 24 Hrs of Vitals and I&O: Vital Signs Date Time Temp Pulse Resp B/P Pulse O2 O2 Flow FiO2 Ox Delivery Rate 08/05 0000 96 08/05 0000 98.4 72 24 117/66 96 Room Air 08/04 1600 97.6 56 18 102/66 96 Room Air 08/04 1200 97 Room Air Room Air 08/04 0955 96.9 63 16 119/66 08/04 0954 96.9 63 16 119/66 08/04 0800 98 Room Air Room Air 08/04 0800 96.9 70 20 140/70 98 Room Air Room Air Intake & Output 08/05 0800 08/05 0000 08/04 1600 Intake Total 008 205 8839 Output Total 300 200 Balance 240 -80 804 Intake, IV 0 504 Intake, Oral 240 220 500 Number 0 1 Bowel Movements Output, Urine 300 200 Exam General Appearance: no apparent distress, alert, awake, comfortable Head: atraumatic, normal appearance Neck: normal inspection, supple Respiratory: clear anteriorly without wheezes rhonchi or rales Cardiovascular: regular rate/rhythm (S1 and S2 heard) Abdomen: normal bowel sounds, soft, non-tender Extremities: no edema Skin: intact, normal color, warm/dry Results Last 24 Hrs of Lab Results: Laboratory Tests 08/05/16 0323: Anion Gap 8, Estimated GFR 31 L, Glucose 162 H, Calcium 9.8, Phosphorus 2.6, Magnesium 1.4 L, Total Bilirubin 0.6, AST 43 H, ALT 37, Albumin 2.9 L, CBC w Diff NO MAN DIFF REQ, RBC 3.17 L, MCV 96.0, MCH 32.5 H, RDW 14.9 H, MPV 11.4 H, Gran % 55.6, Lymphocytes % 34.0, Monocytes % 8.4, Eosinophils % 1.6, Basophils % 0.4, Absolute Granulocytes 2.4, Absolute Lymphocytes 1.5, Absolute Monocytes 0.4, Absolute Eosinophils 0.1, Absolute Basophils 0, PUBS MCHC 33.9 Last 24 Hrs of Micro Results: Cultures are negative so far. Diagnostic Data CXR Findings: Unchanged appearance of the chest with low lung volumes again seen. No evidence of pulmonary edema or central vascular congestion. Impression/Plan Impression/Plan Impression/Plan: 1. Hyperosmolar hyperglycemic nonketotic state, now improved. 2. Presumed urinary tract infection. 3. Yeast infection. 4. Nausea. Recommendations: * Give IV Zofran as needed for nausea. * Continue to follow endocrine's recommendations regarding blood sugar management. Appreciate input. * Continue IV ceftriaxone empirically pending final culture results. * Continue miconazole and Diflucan for vaginal candidiasis. * Increase activity, out of bed to chair. * Diabetic diet. * Continue DVT prophylaxis. * Continue all supportive care. [facility]
--- NOTE | 2016-08-05 08:59 | RADIOLOGY REPORT ---
EXAMINATION: XR ELBOW, LEFT CLINICAL INFORMATION: Presumed fracture COMPARISON: None TECHNIQUE: Four views of the left elbow. FINDINGS: There is normal alignment. There is a moderate-sized joint effusion. No definite fracture seen. There is mild degenerative disease present. IMPRESSION: The presence of significant joint fluid likely represents an occult undisplaced radial head fracture. Recommend clinical correlation.
[2016-08-05 16:00] VITALS: BP 112/68
--- NOTE | 2016-08-05 22:27 | NUR ---
AVSS.NO C'O GEN DISCOMFORT.+PP.NO EDEMA. GRACE PO WELL.VOIDING GOOD UO.PLAN OF CARE REVIEWED
[2016-08-06 00:30] VITALS: BP 110/70
[2016-08-06 05:03] LABS: ABSOLUTE BASOPHIL COUNT 0 /CUMM (0.0-0.2); ABSOLUTE EOSINOPHIL COUNT 0.1 /CUMM (0.0-0.7); ABSOLUTE GRANULOCYTE CT 2.2 /CUMM (1.4-6.5); ABSOLUTE LYMPH COUNT 1.3 /CUMM (1.2-3.4); ABSOLUTE MONOCYTE COUNT 0.4 /CUMM (0.10-0.60); BASOPHIL % 1.2 % (0.0-2.0); EOSINOPHIL % 1.8 % (0-5); GRANULOCYTE % 54.1 % (42.2-75.2); HEMATOCRIT 29.6 % (37-47); MEAN CORPUSCULAR HGB 32.5 PG (27.0-31.0); MEAN CORPUSCULAR HGB CONC 34.1 G/DL (33.0-37.0); MEAN CORPUSCULAR VOLUME 95.1 FL (81.0-99.0); MEAN PLATELET VOLUME 10.6 FL (7.4-10.4); PLATELET COUNT 71 /CUMM (130-400); RBC DISTRIBUTION WIDTH 14.9 % (11.5-14.5); RED BLOOD CELL CT 3.11 /CUMM (4.20-5.40)
--- NOTE | 2016-08-06 07:04 | PN- Resident CRCU ---
Subjective HPI/CRCU Issues: Patient in ICU as a general medicine hold patient for hyperosmolar hyperglycemic nonketotic state. I followed up and examined the patient today. Today, she is resting comfortably in the bed, is alert, oriented, comfortable, not in any distress, does not have any complaints. Vitals have been stable, blood sugar lowering down, and no issues overnight. She does admits to left elbow pain when asked. Range of motion is normal. Denies any trauma. She mentions that the pain is chronic but bothers her every day. Objective Vital Signs & I&O Last 8 Hrs of Vitals and I&O: Vital Signs Date Time Temp Pulse Resp B/P Pulse O2 O2 Flow FiO2 Ox Delivery Rate 08/07 799 97.6 55 22 134/78 93 Room Air 08/06 0030 97.8 64 20 110/70 94 08/05 1600 94 Room Air 08/05 1600 97.8 71 20 112/68 94 Room Air Intake & Output 08/06 1600 08/06 0800 08/06 0000 Intake Total 120 240 Output Total 300 200 Balance -180 40 Intake, Oral 120 240 Output, Urine 300 200 Exam General Appearance: no apparent distress, alert, awake, comfortable, obese Other Physical Findings: Head: Normocephalic, atraumatic Eyes: Pupils normal in size, regular, reacting to light and accommodation, EOM normal Ears: B/l normal on inspection Nose: Normal on inspection Throat/mouth: Moist mucosa Neck: Supple, full range of motion, no thyromegaly Heart: Regular rate, regular rhythm Lung: Normal breath sound bilaterally Added sound not heard Abd: Soft, non-tender, no distention appreciated Back: Normal range of motion Extremities: Normal knee exam bilaterally, no pedal edema, Distal neurovascular intact, left elbow tenderness present over the proximal half of radius, range of motion normal otherwise, no signs of local inflammation Neurologic: Alert, oriented x3, Cranial exam grossly intact, Speech is clear and coherent Skin: Warm and dry Psychiatric: Calm, cooperative, coherant Nutrition Nutrition: P.O. diet Current Medications: Current Medications Sig/Jennifer Start time Last Medication Dose Route Stop Time Status Admin Acetaminophen 650 MG .STK-MED ONE 08/06 0039 DC PO 08/06 0040 Acetaminophen 650 MG Q6P PRN 08/03 2099 AC 08/06 PO 1018 Acetaminophen 1,000 MG Q6P PRN 03/06 2100 AC IV Allopurinol 100 MG DAILY 08/03 2200 AC 08/06 PO 1019 Amlodipine Besylate 10 MG DAILY 08/04 1000 AC 08/06 PO 1019 Atorvastatin Calcium 5 MG 1700 08/04 1700 AC 08/05 PO 1705 Ceftriaxone Sodium 1,000 MG DAILY 08/04 1000 DC 08/06 IV 1018 Cholecalciferol 5,000 IU DAILY 08/04 1000 AC 08/06 PO 1018 Ciprofloxacin 500 MG BID 08/06 2200 UNVr PO 08/10 2159 Cyanocobalamin 1,000 MCG DAILY 08/04 1000 AC 08/06 PO 1018 Duloxetine HCl 60 MG DAILY 08/04 1000 AC 08/06 PO 1018 Fluconazole 200 MG DAILY 08/04 1000 AC 08/06 PO 1020 Insulin Aspart 0 TIDAC/HS 08/04 1200 AC 08/06 SC 1149 Insulin Detemir 14 UNITS BID 08/04 0815 AC 08/06 SC 0821 Levothyroxine Sodium 0.175 MG DAILY AC 08/04 0700 AC 08/06 PO 0819 Lidocaine 1 PAT DAILY 08/04 2000 AC 08/05 EXT 1048 Magnesium Oxide 400 MG BID 08/05 1000 AC 08/06 PO 1019 Miconazole Nitrate 1 SANDEEP BID 08/04 0130 AC 08/06 VAG 1021 Nadolol 20 MG DAILY 08/04 1000 AC 08/06 PO 1020 Omeprazole 40 MG DAILY AC 08/04 0700 AC 08/06 PO 0820 Oxybutynin Chloride 2.5 MG BID 08/04 1000 AC 08/06 PO 1020 Radiology Findings: Left Elbow X-ray: IMPRESSION: The presence of significant joint fluid likely represents an occult undisplaced radial head fracture. Recommend clinical correlation. DICTATED BY: DAVEY LEON MD DATE/TIME DICTATED:08/05/16736 AUDIT CLERK:TAMMY DATE/TIME TRANSCRIBED:08/05/16736 Impression/Plan Impression/Problem List Impression: 80-year-old female with past medical history of insulin-dependent type 2 diabetes mellitus, hyperlipidemia, hypertension, gout, liver cirrhosis of unknown type, portal hypertension with varices and gastropathy, restless leg syndrome, depression, GERD, presented to the emergency department with vaginal any urinary symptoms, and high blood sugar with no ketones. She is currently being managed in the ICU as general medicine hold for the following issues: #Hyperosmolar hyperglycemic nonketotic state, improved -Her blood sugar was initially 919, with normal anion gap, ketones negative, she was in hyperosmolar hyperglycemic nonketotic state -Presumed perspiring factors urinary tract infection, receiving abx d2 -blood sugar getting better, 98 this AM, anion gap (low) normal at 4 -Endocrinology consult appreciated, will follow #suspected adrenal insufficiency -she has been consistently hyperkalemic and low normal in sodium -AM cortisol was 8, so per endocrinology consult, we will carry out Co-Syntropin test later today with basal cortisol level test, 250mcg IV ACTH injection, repeat cortisol level test 2 at 30 min after injection, and again cortisol level test 3 at 60 min after injection. -order placed accordingly and labs and pharmacy arranged. #Urinary tract infection -Urine has WBC 50-75 with leukocyte esterase positive although trace, pending culture reports -Was started empirically on IV ceftriaxone. Now switching to PO Ciprofloxacin. -Since her creatinine is getting better from 2.2 to 1.5, we will give her first dose of Cipro tonight and next (AM) dose can be revised according to her AM creatinine levels. Might need reduced dose or once daily dosing per pharmacy. #Vaginal candidiasis -Continue miconazole and Diflucan #Hypothyroidism -Thyroid function test appears to be within normal range -Continue home medication #Left elbow effusion -She mentions of left sided elbow pain, and the x-ray showed increased joint space suggestive of effusion, which in turn per radiology is also suggestive of occult radial head fracture. She denies any trauma and mentions that this is rather a chronic problem which affects her everyday. -Possible workup as out patient after a rheumatology consult -basic rheumatologic workup ordered -awaiting Rheumatology consult later today with Dr Aguilar #Diet: Diabetic diet #DVT prophylaxis: ALPS #Code status: Full code Problem List: 1. Diabetes mellitus with hyperosmolarity 2. Uncontrolled diabetes mellitus 3. Urinary tract infection 4. Tinea cruris 5. Cirrhosis 6. Dyslipidemia 7. Thrombocytopenia Pain Ratin Pain Location: left elbow (if tapped/pressed) Pain Goal: Pain 4 or less Pain Plan: acetaminophen, denies any stronger meds Tomorrow's Labs & Rationales: CBC, BEP, Mg to follow up on lytes and low plt Plan DVT/Prophylaxis: mechanical
--- NOTE | 2016-08-06 07:35 | PN- Diabetes ---
Assessment/Plan Assessment: The patient came into the hospital with a hyperosmolar state. She has been treated with IV fluids and insulin. Presently she is eating and on a basal bolus regimen. The patient feels improved. Urine culture shows multiple organisms consistent with contamination. The patient's blood sugars yesterday were 157 before breakfast, 216 before lunch , 187 before dinner, and 236 at bedtime. This morning her blood sugar in the lab is 115. The patient's renal function is improving with a creatinine of 1.5. Sodium remains at 134 and potassium is now increased to 5.4. The patient has pain in the left elbow and numbness of the fourth and fifth fingers consistent with an ulnar neuropathy. There is fluid present on x-ray of the elbow. The patient states he has had no trauma to that area. Plan: Suggest continue the present insulin. Increase activity. Consider left elbow joint tap assess the synovial fluid with the help of interventional radiology or rheumatology or orthopedics. Check AM cortisol level in view of low sodium and high potassium. Consider Cortrosyn stimulation test if baseline cortisol level is less than 18. Subjective Subjective: Feels improved Review of Systems Constitutional: Denies: chills, fever. Cardiovascular: Denies: chest pain. Respiratory: Denies: short of breath. Gastrointestinal: Denies: abdominal pain, nausea, vomiting. Skin: Reports: no symptoms. Objective Last 24 Hrs of Vital Signs/I&O Vital Signs Date Time Temp Pulse Resp B/P Pulse O2 O2 Flow FiO2 Ox Delivery Rate 08/06 0030 97.8 64 20 110/70 94 08/05 1600 94 Room Air 08/05 1600 97.8 71 20 112/68 94 Room Air 08/06 799 98 Room Air Intake & Output 08/06 0000 08/05 1600 Intake Total 120 240 720 Output Total 300 200 Balance -180 40 720 Intake, Oral 120 240 720 Output, Urine 300 200 Patient 222 lb Weight Vital Signs Date Time Temp Pulse Resp B/P Pulse O2 O2 Flow FiO2 Ox Delivery Rate 08/06 0030 97.8 64 20 110/70 94 08/05 1600 94 Room Air 08/05 1600 97.8 71 20 112/68 94 Room Air 08/06 0700 98 Room Air Intake & Output 08/06 0000 08/05 1600 Intake Total 120 240 720 Output Total 300 200 Balance -180 40 720 Intake, Oral 120 240 720 Output, Urine 300 200 Patient 222 lb Weight Physical Exam General Appearance: alert, awake, comfortable Head: normal appearance Neck: normal inspection Respiratory: normal breath sounds Cardiovascular: regular rate/rhythm Abdomen: normal bowel sounds Current Medications: Current Medications Sig/Jennifer Start time Last Medication Dose Route Stop Time Status Admin Acetaminophen 650 MG Q6P PRN 08/03 2100 AC 08/06 PO 0044 Acetaminophen 1,000 MG Q6P PRN 08/03 2100 AC IV Allopurinol 100 MG DAILY 08/03 2200 AC 08/05 PO 1050 Amlodipine Besylate 10 MG DAILY 08/04 1000 AC 08/05 PO 1051 Atorvastatin Calcium 5 MG 1700 08/04 1700 AC 08/05 PO 1705 Ceftriaxone Sodium 1,000 MG DAILY 08/04 1000 AC 08/05 IV 1051 Cholecalciferol 5,000 IU DAILY 08/04 1000 AC 08/05 PO 1050 Cyanocobalamin 1,000 MCG DAILY 08/04 1000 AC 08/05 PO 1051 Duloxetine HCl 60 MG DAILY 08/04 1000 AC 08/05 PO 1051 Fluconazole 200 MG DAILY 08/04 1000 AC 08/05 PO 1051 Insulin Aspart 0 TIDAC/HS 08/04 1200 AC 08/05 SC 1705 Insulin Detemir 14 UNITS BID 08/04 0815 AC 08/05 SC 2156 Levothyroxine Sodium 0.175 MG DAILY AC 08/04 0700 AC 08/05 PO 0633 Lidocaine 1 PAT DAILY 08/04 2000 AC 08/05 EXT 1048 Magnesium Oxide 400 MG BID 08/05 1000 AC 08/05 PO 2156 Miconazole Nitrate 1 SANDEEP BID 08/04 0130 AC 08/05 VAG 2158 Nadolol 20 MG DAILY 08/04 1000 AC 08/05 PO 1051 Omeprazole 40 MG DAILY AC 08/04 0700 AC 08/05 PO 0633 Ondansetron HCl 4 MG ONCE ONE 08/05 0745 DC 08/05 IV 08/05 0746 0830 Oxybutynin Chloride 2.5 MG BID 08/04 1000 AC 08/05 PO 2156 Findings Pertinent Lab/Unruly Results: Laboratory Tests 08/06 0430 Chemistry Sodium (137 - 145 mmol/L) 134 L Potassium (3.5 - 5.1 mmol/L) 5.4 H Chloride (98 - 107 mmol/L) 101 Carbon Dioxide (22 - 30 mmol/L) 28 Anion Gap (5 - 16) 4 L BUN (7 - 17 mg/dL) 36 H Creatinine (0.5 - 1.0 mg/dL) 1.5 H Estimated GFR (>60 ml/min) 33 L Glucose (65 - 99 mg/dL) 115 H Calcium (8.4 - 10.2 mg/dL) 9.8 Phosphorus (2.5 - 4.5 mg/dL) 3.1 Magnesium (1.6 - 2.3 mg/dL) 1.4 L Total Bilirubin (0.2 - 1.3 mg/dL) 0.7 AST (14 - 36 U/L) 63 H ALT (9 - 52 U/L) 36 Albumin (3.5 - 5.0 g/dL) 2.9 L Hematology CBC w Diff NO MAN DIFF REQ WBC (4.8 - 10.8 /CUMM) 4.0 L RBC (4.20 - 5.40 /CUMM) 3.11 L Hgb (12.0 - 16.0 G/DL) 10.1 L Hct (37 - 47 %) 29.6 L MCV (81.0 - 99.0 FL) 95.1 MCH (27.0 - 31.0 PG) 32.5 H RDW (11.5 - 14.5 %) 14.9 H Plt Count (130 - 400 /CUMM) 71 L MPV (7.4 - 10.4 FL) 10.6 H Gran % (42.2 - 75.2 %) 54.1 Lymphocytes % (20.5 - 51.1 %) 33.3 Monocytes % (1.7 - 9.3 %) 9.6 H Eosinophils % (0 - 5 %) 1.8 Basophils % (0.0 - 2.0 %) 1.2 Absolute Granulocytes (1.4 - 6.5 /CUMM) 2.2 Absolute Lymphocytes (1.2 - 3.4 /CUMM) 1.3 Absolute Monocytes (0.10 - 0.60 /CUMM) 0.4 Absolute Eosinophils (0.0 - 0.7 /CUMM) 0.1 Absolute Basophils (0.0 - 0.2 /CUMM) 0 PUBS MCHC (33.0 - 37.0 G/DL) 34.1
[2016-08-06 08:00] VITALS: BP 134/78
--- NOTE | 2016-08-06 08:39 | PN- Pulmonary ---
Subjective HPI/Critical Care Issues: The patient is awake and alert. She reports feeling markedly improved. Her nausea has improved as well. Her blood sugars are well controlled on the current regimen. Her renal function is improving, noting her creatinine is now down to 1.5. The patient has been noted to have left elbow, fourth and fifth finger numbness and pain consistent with an ulnar neuropathy. She had an x-ray of the elbow that showed fluid present. She is afebrile with stable vital signs. Objective Current Medications: Current Medications Sig/Jennifer Start time Last Medication Dose Route Stop Time Status Admin Acetaminophen 650 MG Q6P PRN 08/03 2100 AC 08/06 PO 0044 Acetaminophen 1,000 MG Q6P PRN 08/03 2100 AC IV Allopurinol 100 MG DAILY 08/03 2200 AC 08/05 PO 1050 Amlodipine Besylate 10 MG DAILY 08/04 1000 AC 08/05 PO 1051 Atorvastatin Calcium 5 MG 1700 08/04 1700 AC 08/05 PO 1705 Ceftriaxone Sodium 1,000 MG DAILY 08/04 1000 AC 08/05 IV 1051 Cholecalciferol 5,000 IU DAILY 08/04 1000 AC 08/05 PO 1050 Cyanocobalamin 1,000 MCG DAILY 08/04 1000 AC 08/05 PO 1051 Duloxetine HCl 60 MG DAILY 08/04 1000 AC 08/05 PO 1051 Fluconazole 200 MG DAILY 08/04 1000 AC 08/05 PO 1051 Insulin Aspart 0 TIDAC/HS 08/04 1200 AC 08/06 SC 0820 Insulin Detemir 14 UNITS BID 08/04 0815 AC 08/06 SC 0821 Levothyroxine Sodium 0.175 MG DAILY AC 08/04 0700 AC 08/06 PO 0819 Lidocaine 1 PAT DAILY 08/04 2000 AC 08/05 EXT 1048 Magnesium Oxide 400 MG BID 08/05 1000 AC 08/05 PO 2156 Miconazole Nitrate 1 SANDEEP BID 08/04 0130 AC 08/05 VAG 2158 Nadolol 20 MG DAILY 08/04 1000 AC 08/05 PO 1051 Omeprazole 40 MG DAILY AC 08/04 0700 AC 08/06 PO 0820 Oxybutynin Chloride 2.5 MG BID 08/04 1000 AC 08/05 PO 2156 Vital Signs & I&O Last 24 Hrs of Vitals and I&O: Vital Signs Date Time Temp Pulse Resp B/P Pulse O2 O2 Flow FiO2 Ox Delivery Rate 08/06 0030 97.8 64 20 110/70 94 08/05 1600 94 Room Air 08/05 1600 97.8 71 20 112/68 94 Room Air Intake & Output 08/06 1600 08/06 0800 08/06 0000 Intake Total 120 240 Output Total 300 200 Balance -180 40 Intake, Oral 120 240 Output, Urine 300 200 Exam General Appearance: no apparent distress, alert, awake, comfortable Head: atraumatic, normal appearance Neck: normal inspection, supple Respiratory: clear anteriorly without wheezes rhonchi or rales Cardiovascular: regular rate/rhythm (S1 and S2 heard) Abdomen: normal bowel sounds, soft, non-tender Extremities: Left elbow has full range of motion Skin: intact, normal color, warm/dry Results Last 24 Hrs of Lab Results: Laboratory Tests 08/06/16 0430: Anion Gap 4 L, Estimated GFR 33 L, Glucose 115 H, Calcium 9.8, Phosphorus 3.1 , Magnesium 1.4 L, Total Bilirubin 0.7, AST 63 H, ALT 36, Albumin 2.9 L, CBC w Diff NO MAN DIFF REQ, RBC 3.11 L, MCV 95.1, MCH 32.5 H, RDW 14.9 H, MPV 10.6 H, Gran % 54.1, Lymphocytes % 33.3, Monocytes % 9.6 H, Eosinophils % 1.8, Basophils % 1.2, Absolute Granulocytes 2.2, Absolute Lymphocytes 1.3, Absolute Monocytes 0.4, Absolute Eosinophils 0.1, Absolute Basophils 0, PUBS MCHC 34.1 Diagnostic Data Radiology Findings: The presence of significant joint fluid likely represents an occult undisplaced radial head fracture. Recommend clinical correlation. Impression/Plan Impression/Plan Impression/Plan: 1. Hyperosmolar hyperglycemic nonketotic state, now improved. 2. UTI - on ceftriaxone. 3. Yeast infection. 4. Nausea - improved. 5. Moderate sized left elbow joint effusion, rule out etiology. Recommendations: * Continue to follow endocrine's recommendations regarding blood sugar management and possible adrenal insufficiency. Appreciate input. * Will need to pursue left elbow synovial fluid aspiration. Please consult rheumatology. * Change to oral ciprofloxacin. * Continue miconazole and Diflucan for vaginal candidiasis. * Increase activity, out of bed to chair. * Please ambulate as tolerated. * Diabetic diet to continue. * Continue DVT prophylaxis. * Continue all supportive care. The patient is a [employer] hold ICU.
[2016-08-06 16:00] VITALS: BP 128/80
--- NOTE | 2016-08-06 18:34 | Cons- Rheumatology ---
General Information and HPI Consulting Request Date of Consult: 08/06/16 Requested By: KRISHAN PEREZ,REBECA Reason for Consult: Evaluate elbow effusion Source of Information: patient Exam Limitations: no limitations History of Present Illness: This 80 yowf diabetic was addmitted 3 days ago with hyperosmolar coma. She has had left elbow pain for the past week and an xray has shown an effusion. She geetha trauma or previour inflammatory arthritic symptoms. She has a remote history of gout. there has been no redness. The pain is more or less constant. She has used an occasional advil with no relief. Allergies/Medications Allergies: Coded Allergies: Opioids - Morphine Analogues (ITCH, GI UPSET 08/03/16) Opioids-Meperidine and Related (ITCH, GI UPSET 08/03/16) Opioids-Methadone and Related (ITCH, GI UPSET 08/03/16) codeine (GI UPSET 08/03/16) morphine (ITCHING, GI UPSET 08/03/16) Home Med List: Allopurinol (Zyloprim) 100 MG TABLET 1 TAB PO DAILY GOUT (Reported) Amlodipine Besylate 10 MG TABLET 1 TAB PO DAILY BP (Reported) Cholecalciferol (Vitamin D3) (Vitamin D) 5,000 UNIT TABLET 1 TAB PO DAILY SUPPLEMENT (Reported) Cyanocobalamin (Vitamin B-12) 1,000 MCG TABLET 1 TAB PO DAILY SUPPLEMENT ( Reported) Duloxetine HCl (Cymbalta) 60 MG CAPSULE.DR 1 CAP PO DAILY NERVE PAIN ( Reported) Furosemide (Lasix) 20 MG TABLET 60 MG PO BID DIURETIC (Reported) Reason to Stop at ADM: DEHYDRATED, JOHN, HHNS Gabapentin 300 MG CAPSULE 1 CAP PO BID NERVE PAIN (Reported) Reason to Stop at ADM: JOHN, MAY RESTART TOMORROW OR DAY AFTER Insulin Detemir (Levemir) 100 UNIT/ML VIAL 6 UNITS SC AD DM (Reported) Reason to Stop at ADM: INSULIN DRIP Insulin-Lantus (Lantus) 100 UNIT/ML VIAL 46 UNITS SC QAM DM (Reported) Reason to Stop at ADM: INLUSIN DRIP Insulin-Lantus (Lantus) 100 UNIT/ML VIAL 50 UNITS SC QPM DM (Reported) Reason to Stop at ADM: INSULIN DRIP Levothyroxine Sodium 175 MCG TABLET 1 TAB PO DAILY THYROID (Reported) Lovastatin 20 MG TABLET 1 TAB PO DAILY CHOLESTEROL (Reported) Magnesium Oxide (Magnesium) 500 MG CAPSULE 1 CAP PO DAILY SUPPLEMENT ( Reported) Mirabegron (Myrbetriq) 50 MG TAB.ER.24H 1 TAB PO DAILY BLADDER (Reported) Nadolol 20 MG TABLET 1 TAB PO DAILY BP (Reported) Omeprazole 40 MG CAPSULE.DR 1 CAP PO DAILY GI (Reported) Spironolactone (Aldactone) 50 MG TABLET 1 TAB PO BID DIURETIC (Reported) Reason to Stop at ADM: ON FLUIDS Current Medications: Current Medications Sig/Jennifer Start time Last Medication Dose Route Stop Time Status Admin Acetaminophen 650 MG .STK-MED ONE 08/06 1007 DC PO 08/06 1008 Acetaminophen 650 MG .STK-MED ONE 08/06 0039 DC PO 08/06 0040 Acetaminophen 650 MG Q6P PRN 08/03 2100 AC 08/06 PO 1018 Acetaminophen 1,000 MG Q6P PRN 08/03 2100 AC IV Allopurinol 100 MG DAILY 08/03 2200 AC 08/06 PO 1019 Amlodipine Besylate 10 MG DAILY 08/04 1000 AC 08/06 PO 1019 Atorvastatin Calcium 5 MG 1700 08/04 1700 AC 08/06 PO 1609 Ceftriaxone Sodium 1,000 MG DAILY 08/04 1000 DC 08/06 IV 1018 Cholecalciferol 5,000 IU DAILY 08/04 1000 AC 08/06 PO 1018 Ciprofloxacin 500 MG BID 08/06 2200 AC PO 08/10 2159 Cosyntropin 0.25 MG ONE ONE 08/06 1400 DC 08/06 IV 08/06 1401 1730 Cyanocobalamin 1,000 MCG DAILY 08/04 1000 AC 08/06 PO 1018 Duloxetine HCl 60 MG DAILY 08/04 1000 AC 08/06 PO 1018 Fluconazole 200 MG DAILY 08/04 1000 AC 08/06 PO 1020 Insulin Aspart 0 TIDAC/HS 08/04 1200 AC 08/06 SC 1640 Insulin Detemir 14 UNITS BID 08/04 0815 AC 08/06 SC 0821 Levothyroxine Sodium 0.175 MG DAILY AC 08/04 0700 AC 08/06 PO 0819 Lidocaine 1 PAT DAILY 08/04 2000 AC 08/05 EXT 1048 Magnesium Oxide 400 MG BID 08/05 1000 AC 08/06 PO 1019 Miconazole Nitrate 1 SANDEEP BID 08/04 0130 AC 08/06 VAG 1021 Nadolol 20 MG DAILY 08/04 1000 AC 08/06 PO 1020 Omeprazole 40 MG DAILY AC 08/04 0700 AC 08/06 PO 0820 Oxybutynin Chloride 2.5 MG BID 08/04 1000 AC 08/06 PO 1020 Review of Systems Review of Systems: No fevers or rashes. No Raynauds. Past History Travel History Traveled to [place] past 21 day No Medical History Blood Transfusion Hx: No Neurological: dizziness Cardiovascular: hypertension, hyperlipidemia Gastrointestinal: GERD, portal hypertension, gastropathy varices Hepatic: cirrhosis Renal: urinary incontinence Musculoskeletal: gout, restless leg syndrome Psychiatric: depression Endocrine: diabetes, hypothyroidism Blood Disorders: thrombocytopenia Other Medical Hx: Urinary incontinence Surgical History Surgical History: appendectomy, cholecystectomy, hysterectomy, BILAT KNEE REPLACEMENTS Family History Relations & Conditions If Any: FATHER (Had a history of brain aneurysm and of stroke at the age of 73). MOTHER (Mother at the age of 26 years, unknown cause). Psychosocial History Where Do You Live? Home Who Do You Live With? spouse Services at Home: None Primary Language: Macedonian Smoking Status: Never Smoked ETOH Use: occasional use Illicit Drug Use: denies illicit drug use Living Will? no Functional Ability ADLs Independent: dressing, eating, toileting, bathing. Ambulation: independent IADLs Independent: shopping, housework, finances, food prep, telephone, medication admin. Needs Assist: transportation. 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 The left elbow is not swollen and she has full ROM. There is tenderness over the lateral epicondyle of the elbow. There is FROM of all her other joints. Assessment/Plan Assessment: Clinically , this is compatible with lateral epicondylitis but that does not explain the effusion. Recommendations: Suggest an MRI of the elbow. Further recommendations thereafter. I certainly feel there is no need to aspirate the joint Consult Acknowledgment - Thank you for your consult request.
--- NOTE | 2016-08-06 22:47 | NUR ---
avss.c/o left elbow discomfort and tylenol given with good effect.lcta. bianca po well. plan of care reviewed
[2016-08-06 23:38] VITALS: BP 128/78
[2016-08-07 05:27] LABS: ABSOLUTE BASOPHIL COUNT 0 /CUMM (0.0-0.2); ABSOLUTE EOSINOPHIL COUNT 0 /CUMM (0.0-0.7); ABSOLUTE GRANULOCYTE CT 2.3 /CUMM (1.4-6.5); ABSOLUTE LYMPH COUNT 1.1 /CUMM (1.2-3.4); ABSOLUTE MONOCYTE COUNT 0.3 /CUMM (0.10-0.60); BASOPHIL % 0.4 % (0.0-2.0); GRANULOCYTE % 61.5 % (42.2-75.2); HEMATOCRIT 28.2 % (37-47); MEAN CORPUSCULAR HGB CONC 34.5 G/DL (33.0-37.0); MEAN CORPUSCULAR VOLUME 95.7 FL (81.0-99.0); MEAN PLATELET VOLUME 10.6 FL (7.4-10.4); PLATELET COUNT 62 /CUMM (130-400); RBC DISTRIBUTION WIDTH 14.7 % (11.5-14.5); RED BLOOD CELL CT 2.95 /CUMM (4.20-5.40); WHITE BLOOD CELL COUNT 3.7 /CUMM (4.8-10.8)
--- NOTE | 2016-08-07 06:53 | PN- Housestaff ---
Subjective Follow-up For: hyperosmolar hyperglycemic nonketotic state Complaints: no complaints Subjective: I followed up and examined the patient today. She is resting comfortably in the bed, is alert, oriented, comfortable, not in any distress, does not have any complaints. Vitals have been stable, blood sugar lowering down, and no issues overnight. Her left elbow pain is still present as before, but under control. No changes. Review of Systems Constitutional: Reports: no symptoms. EENTM: Reports: no symptoms. Cardiovascular: Reports: no symptoms. Respiratory: Reports: no symptoms. Gastrointestinal: Reports: no symptoms. Genitourinary: Reports: no symptoms. Musculoskeletal: Reports: see HPI. Skin: Reports: no symptoms. Neurological/Psychological: Reports: no symptoms. Hematologic/Endocrine: Reports: no symptoms. Objective Last 24 Hrs of Vital Signs/I&O Vital Signs Date Time Temp Pulse Resp B/P Pulse O2 O2 Flow FiO2 Ox Delivery Rate 08/08 799 98.1 56 22 108/70 92 Room Air 08/07 0000 98 Room Air 08/06 2338 97.4 62 20 128/78 94 Room Air Intake & Output 08/07 1600 08/07 0800 08/07 0000 Intake Total 400 240 Output Total 300 Balance 100 240 Intake, IV 0 Intake, Oral 400 240 Number 1 Bowel Movements Output, Urine 300 Physical Exam General Appearance: Alert, Oriented X3, Cooperative, No Acute Distress Other Physical Findings: Head: Normocephalic, atraumatic Eyes: Pupils normal in size, regular, reacting to light and accommodation, EOM normal Ears: B/l normal on inspection Nose: Normal on inspection Throat/mouth: Moist mucosa Neck: Supple, full range of motion, no thyromegaly Heart: Regular rate, regular rhythm Lung: Normal breath sound bilaterally Added sound not heard Abd: Soft, non-tender, no distention appreciated Back: Normal range of motion Extremities: Normal knee exam bilaterally, no pedal edema, Distal neurovascular intact, left elbow tenderness present over lateral epicondyle, range of motion normal otherwise, no signs of local inflammation Neurologic: Alert, oriented x3, Cranial exam grossly intact, Speech is clear and coherent Skin: Warm and dry Psychiatric: Calm, cooperative, coherant Current Medications: Current Medications Sig/Jennifer Start time Last Medication Dose Route Stop Time Status Admin Acetaminophen 650 MG .STK-MED ONE 08/07 2215 DC PO 03/09 2217 Acetaminophen 650 MG Q6P PRN 08/03 2100 DCD 08/06 PO 2219 Acetaminophen 1,000 MG Q6P PRN 08/03 2100 DCD IV Allopurinol 100 MG DAILY 08/03 2200 DCD 08/07 PO 0921 Amlodipine Besylate 10 MG DAILY 08/04 1000 DCD 08/07 PO 0923 Atorvastatin Calcium 5 MG 1700 08/04 1700 DCD 08/06 PO 1609 Cholecalciferol 5,000 IU DAILY 08/04 1000 DCD 08/07 PO 0921 Ciprofloxacin 500 MG BID 08/06 2200 DCD 08/07 PO 08/10 2159 0922 Cyanocobalamin 1,000 MCG DAILY 08/04 1000 DCD 08/07 PO 0923 Duloxetine HCl 60 MG DAILY 08/04 1000 DCD 08/07 PO 0923 Fluconazole 200 MG DAILY 08/04 1000 DC 08/07 PO 0922 Insulin Aspart 0 TIDAC/HS 08/04 1200 DCD 08/07 SC 1202 Insulin Detemir 14 UNITS BID 08/04 0815 DCD 08/07 SC 0924 Levothyroxine Sodium 0.175 MG DAILY AC 08/04 0700 DCD 08/07 PO 0607 Lidocaine 1 PAT DAILY 08/04 2000 DCD 08/05 EXT 1048 Magnesium Oxide 400 MG BID 08/05 1000 DCD 08/07 PO 0923 Melatonin 5 MG ONCE ONE 08/07 0300 DC 08/07 PO 08/07 0301 0303 Miconazole Nitrate 1 SANDEEP BID 08/04 0130 DCD 08/07 VAG 0924 Nadolol 20 MG DAILY 08/04 1000 DCD 08/07 PO 0922 Omeprazole 40 MG DAILY AC 08/04 0700 DCD 08/07 PO 0607 Oxybutynin Chloride 2.5 MG BID 08/04 1000 DCD 08/07 PO 0922 Last 24 Hrs of Lab/Unruly Results Last 24 Hrs of Labs/Mics: Laboratory Tests 08/07/16 0454: Anion Gap 5, Estimated GFR 33 L, Glucose 173 H, Calcium 9.5, Phosphorus 2.9, Magnesium 1.3 L, Total Bilirubin 0.4, AST 64 H, ALT 46, Albumin 2.7 L, CBC w Diff NO MAN DIFF REQ, RBC 2.95 L, MCV 95.7, MCH 33.0 H, RDW 14.7 H, MPV 10.6 H, Gran % 61.5, Lymphocytes % 29.1, Monocytes % 8.0, Eosinophils % 1.0, Basophils % 0.4, Absolute Granulocytes 2.3, Absolute Lymphocytes 1.1 L, Absolute Monocytes 0.3, Absolute Eosinophils 0, Absolute Basophils 0, PUBS MCHC 34.5 08/06/16 1800: Cortisol PM Sample 18.9 H Orders Radiology Findings: LEFT ELBOW MRI: IMPRESSION: 1. No fracture. Small joint effusion. 2. Posterior subcutaneous edema without an organized fluid collection. 3. Distal biceps and brachialis muscle strains/partial tears. 4. Common extensor tendinosis. Jose Martin Mccoy MD Fellow, Musculoskeletal Radiology I personally reviewed the images and, if necessary, I edited the report. I agree with the report as now presented. DICTATED BY: LINWOOD SUH MD DATE/TIME DICTATED:08/07/161299 EXAMINATION PROCTOR:TAMMY DATE/TIME TRANSCRIBED:08/07/161299 Assessment/Plan Assessment: 80-year-old female with past medical history of insulin-dependent type 2 diabetes mellitus, hyperlipidemia, hypertension, gout, liver cirrhosis of unknown type, portal hypertension with varices and gastropathy, restless leg syndrome, depression, GERD, presented to the emergency department with vaginal any urinary symptoms, and high blood sugar with no ketones. She is currently being managed in the ICU as general medicine hold for the following issues: Update: She is stable enough and her blood sugar level is in control to discharge her today to home. #Hyperosmolar hyperglycemic nonketotic state, improved -Her blood sugar was initially 919, with normal anion gap, ketones negative, she was in hyperosmolar hyperglycemic nonketotic state -Presumed perspiring factors urinary tract infection, receiving abx d2 -blood sugar getting better, 176 this AM, mostly under control with the latest anion gap normal at 5 -Endocrinology consult appreciated, will follow #adrenal insufficiency ruled out -she has been consistently hyperkalemic and low normal in sodium, so a Co- Syntropin test was done yesterday which showed normal level >20 after 30minutes of ACTH injection. Thus, ruled out. #Urinary tract infection -Urine has WBC 50-75 with leukocyte esterase positive although trace, pending culture reports -Was started empirically on IV ceftriaxone. Now PO Ciprofloxacin on, total 7 days of abx planned. #Vaginal candidiasis -Continue miconazole for total 7 days -Stopped fluconazole today #Hypothyroidism -Thyroid function test appears to be within normal range -Continue home medication #Left elbow muscle strains/partial tears, and joint effusion -She mentioned yesterday about of left sided elbow pain, and the x-ray showed increased joint space suggestive of effusion, which in turn per radiology is also suggestive of occult radial head fracture. She denied any trauma and mentioned that this is rather a chronic problem which affects her everyday. Rheumatology workup and consult was done with Dr Aguilar, who thought about lateral epicondylitis, and the effusion if present if too little to drain and test for as this does not appear septic so not an emergency. He suggested MRI, and a follow up as out patient. -MRI report showed soft tissue injuries rather than (occult) fracture that was one of the differential diagnoses. The result has been communicated later today after she was discharged over phone directly by me at 1730hrs. She will follow up with Rheumatology clinic and understands that I am only reading out the results, but needs a peoper follow up with Dr Aguilar and/or orthopedics. Dr Aguilar office notified that the MRI results are back. #Diet: Diabetic diet #DVT prophylaxis: ALPS #Code status: Full code Problem List: 1. Diabetes mellitus with hyperosmolarity 2. Urinary tract infection Pain Ratin Pain Location: LEFT ELBOW Pain Goal: Pain 4 or less Pain Plan: acetaminophen Tomorrow's Labs & Rationales: - as the patient is being discharged today Consulting Request: Consulting Specialty: Endocrinology Consulting Physician: Dr. García Reason for Consult: [facility]
[2016-08-07 08:00] VITALS: BP 108/70
--- NOTE | 2016-08-07 08:01 | PN- Pulmonary ---
Subjective HPI/Critical Care Issues: The patient is awake and alert. Her blood sugars are well controlled. She reports feeling improved overall. The patient has difficulty sleeping in the hospital and feels fatigued. She continues to have chronic left elbow discomfort. There were no other overnight events. She feels well and would like to go home. Objective Current Medications: Current Medications Sig/Jennifer Start time Last Medication Dose Route Stop Time Status Admin Acetaminophen 650 MG .STK-MED ONE 08/06 2216 DC PO 08/06 2217 Acetaminophen 650 MG .STK-MED ONE 08/06 1007 DC PO 08/06 1008 Acetaminophen 650 MG Q6P PRN 08/03 2100 AC 08/06 PO 2219 Acetaminophen 1,000 MG Q6P PRN 08/03 2100 AC IV Allopurinol 100 MG DAILY 08/03 2200 AC 08/06 PO 1019 Amlodipine Besylate 10 MG DAILY 08/04 1000 AC 08/06 PO 1019 Atorvastatin Calcium 5 MG 1700 08/04 1700 AC 08/06 PO 1609 Ceftriaxone Sodium 1,000 MG DAILY 08/04 1000 DC 08/06 IV 1018 Cholecalciferol 5,000 IU DAILY 08/04 1000 AC 08/06 PO 1018 Ciprofloxacin 500 MG BID 08/06 2200 AC 08/06 PO 08/10 2159 2219 Cosyntropin 0.25 MG ONE ONE 08/06 1400 DC 08/06 IV 08/06 1401 1730 Cyanocobalamin 1,000 MCG DAILY 08/04 1000 AC 08/06 PO 1018 Duloxetine HCl 60 MG DAILY 08/04 1000 AC 08/06 PO 1018 Fluconazole 200 MG DAILY 08/04 1000 AC 08/06 PO 1020 Insulin Aspart 0 TIDAC/HS 08/04 1200 AC 08/06 SC 1640 Insulin Detemir 14 UNITS BID 08/04 0815 AC 08/06 SC 2220 Levothyroxine Sodium 0.175 MG DAILY AC 08/04 0700 AC 08/07 PO 0607 Lidocaine 1 PAT DAILY 08/04 2000 AC 08/05 EXT 1048 Magnesium Oxide 400 MG BID 08/05 1000 AC 08/06 PO 2219 Melatonin 5 MG ONCE ONE 08/07 0300 DC 08/07 PO 08/07 0301 0303 Miconazole Nitrate 1 SANDEEP BID 08/04 0130 AC 08/06 VAG 2220 Nadolol 20 MG DAILY 08/04 1000 AC 08/06 PO 1020 Omeprazole 40 MG DAILY AC 08/04 0700 AC 08/07 PO 0607 Oxybutynin Chloride 2.5 MG BID 08/04 1000 AC 08/06 PO 2219 Vital Signs & I&O Last 24 Hrs of Vitals and I&O: Vital Signs Date Time Temp Pulse Resp B/P Pulse O2 O2 Flow FiO2 Ox Delivery Rate 08/07 0000 98 Room Air 08/06 2338 97.4 62 20 128/78 94 Room Air 08/06 1600 97.4 64 22 128/80 94 Room Air 08/06 0800 97.6 55 22 134/78 93 Room Air Intake & Output 08/07 0800 08/07 0000 08/06 1600 Intake Total 400 240 630 Output Total 300 400 Balance 100 240 230 Intake, IV 0 30 Intake, Oral 400 240 600 Number 1 0 Bowel Movements Output, Urine 300 400 Exam General Appearance: no apparent distress, alert, awake, comfortable Head: atraumatic, normal appearance Neck: normal inspection, supple Respiratory: clear anteriorly without wheezes rhonchi or rales Cardiovascular: regular rate/rhythm (S1 and S2 heard) Abdomen: normal bowel sounds, soft, non-tender Extremities: Left elbow has full range of motion Skin: intact, normal color, warm/dry Results Last 24 Hrs of Lab Results: Laboratory Tests 08/07/16 0454: Anion Gap 5, Estimated GFR 33 L, Glucose 173 H, Calcium 9.5, Phosphorus 2.9, Magnesium 1.3 L, Total Bilirubin 0.4, AST 64 H, ALT 46, Albumin 2.7 L, CBC w Diff NO MAN DIFF REQ, RBC 2.95 L, MCV 95.7, MCH 33.0 H, RDW 14.7 H, MPV 10.6 H, Gran % 61.5, Lymphocytes % 29.1, Monocytes % 8.0, Eosinophils % 1.0, Basophils % 0.4, Absolute Granulocytes 2.3, Absolute Lymphocytes 1.1 L, Absolute Monocytes 0.3, Absolute Eosinophils 0, Absolute Basophils 0, PUBS MCHC 34.5 08/06/16 1800: Cortisol PM Sample 18.9 H 08/06/16 1730: Cortisol PM Sample 21.9 H 08/06/16 1730: Cortisol PM Sample 9.9 08/06/16 1121: ESR Westergren 35 H Impression/Plan Impression/Plan Impression/Plan: 1. Hyperosmolar hyperglycemic nonketotic state, now improved. 2. UTI - improved. 3. Yeast infection - improved. 4. Left elbow pain compatible with lateral epicondylitis, as per rheumatology. The patient will have an outpatient evaluation including an MRI of the left elbow. Recommendations: * Continue ciprofloxacin. Complete 5 days in total of antibiotics. * Continue miconazole for 7 days. * Stop fluconazole. * Increase activity, out of bed to chair. * Please ambulate as tolerated. * Diabetic diet to continue. * Continue DVT prophylaxis. * The patient should be referred for an outpatient workup for left elbow pain including a left elbow MRI. No need for joint aspiration as per rheumatology. * Appreciate all consultants input. * Will discharge to home today if okay with endocrinology.
--- NOTE | 2016-08-07 08:15 | Patient Discharge Instructions ---
Discharge Instructions General Discharge Information You were seen/treated for: Hyperglycemic hyperosmolar state Special Instructions: Measurable blood sugar and take your insulin regularly as prescribed. Please visit your substation engineer within 7-10 days of discharge. Please visit your primary care physician within 7-10 days of discharge. Please follow-up with Dr. Prasanna Aguilar university administrative assistant within 5-7 days of discharge. Please return to emergency if symptoms worsen. Diet Continue normal diet: No Recommended Diet: Diabetic Activity Full Activity/No Limits: No Activity Self Limited: Yes Acute Coronary Syndrome Inclusion Criteria At DC or during hospital stay patient has or had the following: ACS DIAGNOSIS No Discharge Core Measures Meds if any: Prescribed or Continued at Discharge Meds if any: NOT Prescribed or Continued at Discharge Congestive Heart Failure Inclusion Criteria At DC or during hospital stay patient has or had the following: CHF DIAGNOSIS No Discharge Core Measures Meds if any: Prescribed or Continued at Discharge Meds if any: NOT Prescribed or Continued at Discharge Cerebrovascular accident Inclusion Criteria At DC or during hospital stay patient has or had the following: CVA/TIA Diagnosis No Discharge Core Measures Meds if any: Prescribed or Continued at Discharge Meds if any: NOT Prescribed or Continued at Discharge Venous thromboembolism Inclusion Criteria VTE Diagnosis No VTE Type NONE VTE Confirmed by (Test) NONE Discharge Core Measures - Per Current guidelines, there needs to be overlap - treatment for the first 5 days of Warfarin therapy. - If discharged on Warfarin prior to 5 days of - overlap therapy, the patient will need to be - assessed for post discharge needs including - *Post discharge parental anticoagulation - *Warfarin and/or parental anticoagulation education - *Follow up date to check INR post discharge At least 5 days overlap therapy as Inpatient No Meds if any: Prescribed or Continued at Discharge Note: Overlap Therapy is Warfarin and Anticoagulant Meds if any: NOT Prescribed or Continued at Discharge
[2016-08-07] MEDS ORDERED: OXYBUTYNIN CHLOR5 M2 PO (10:45)
[2016-08-07] MEDS ORDERED: MICONAZOLE NITR45 GM VAG (10:47)
[2016-08-07] MEDS ORDERED: LEVEMIR100 UNIT/1 SC (11:17)
[2016-08-07] MEDS ORDERED: NOVOLOG100 UNIT/2 SC (11:17)
[2016-08-07] MEDS ORDERED: CIPRO500 M1 PO (12:00)
--- NOTE | 2016-08-07 14:37 | Discharge Summary ---
Visit Information Visit Dates Admission Date: 08/03/16 Discharge Date: 08/07/16 Hospital Course Course Attending Physician: REBECA NICKERSON MD Primary Care Physician: MARIUSZ KAUR MD Consulting Request: Consulting Specialty: Endocrinology Consulting Physician: Dr. García Reason for Consult: [facility] Course: Ms Luna is a 80-year-old pleasant female with past medical history of insulin- dependent type 2 diabetes mellitus, hyperlipidemia, hypertension, gout, liver cirrhosis of unknown type, portal hypertension with varices and gastropathy, restless leg syndrome, depression, GERD, who presented to the emergency department with vaginal and urinary symptoms, and high blood sugar with no ketones. She was initially managed in the ICU, and later in the ICU as general medicine hold for the following issues: Update: She is stable enough and her blood sugar level is in control to discharge her today to home. #Hyperosmolar hyperglycemic nonketotic state, improved -Her blood sugar was initially 919, with normal anion gap, ketones negative, she was in hyperosmolar hyperglycemic nonketotic state. Presumed precipitating factor was urinary tract infection. She was managed aggressively in the emergency department as well as in the ICU with IV fluids, insulin, potassium and other electrolytes supplementation. After her blood sugar started getting better, her care was downgraded from intensive care to general medical floor also see was physically present in the ICU the whole time. Endocrinology was consulted and recommendations followed up on all throughout the course. #adrenal insufficiency ruled out She was consistently hyperkalemic and hyponatremic, so a Co-Syntropin test was done per issuing operator, which showed normal level >20 after 30minutes of 250mcg IV ACTH injection. Thus, ruled out. #Urinary tract infection Urine had WBC 50-75 with leukocyte esterase positive although trace, and with presumption that it triggered the hyperosmolar state, was empirically treated with IV ceftriaxone and later switched to oral ciprofloxacin, to be continued upon discharge. #Vaginal candidiasis Was treated with Miconazole for total 7 days (to be continued upon discharge), and Fluconazole, which was stopped on the day of discharge #Hypothyroidism Continued home medication of levothyroxine, as her thyroid function test appeared normal. #Left elbow muscle strains/partial tears, and joint effusion She mentioned about chronic left elbow pain that bothers her everyday, and to rule out septic or other forms of arthritis, basic work-up was done, including a rheumatology consult made with Dr Winn. X-ray showed increased joint space suggestive of effusion, which in turn per radiology is also suggestive of occult radial head fracture. She denied any trauma and mentioned that this is rather a chronic problem which affects her everyday. Dr Prasanna Winn from Rheumatology thought about lateral epicondylitis which could partially explain the symptoms, and the effusion if present is too little to drain and test for, and that this does not appear septic. He suggested an MRI to check on effusion, soft tissue, and fracture that is difficult to assess only in an X-ray and a follow up as out patient. MRI report came out AFTER the patient was discharged from the hospital. MRI report showed soft tissue injuries rather than (occult) fracture that was one of the differential diagnoses. The result was communicated later the same day directly over phone by the housestaff Dr Yoon at 1730hrs. She agreed to follow up with Rheumatology clinic and understands that only the results were read to her and further expert opinion and management is still required with Dr Winn and/or orthopedics. She was on diabetic diet when she could eat. DVT prophylaxis was provided mechanically with ALPS. Code status was Full code. Complications: None Allergies: Coded Allergies: Opioids - Morphine Analogues (ITCH, GI UPSET 08/03/16) Opioids-Meperidine and Related (ITCH, GI UPSET 08/03/16) Opioids-Methadone and Related (ITCH, GI UPSET 08/03/16) codeine (GI UPSET 08/03/16) morphine (ITCHING, GI UPSET 08/03/16) Significant Procedures: MRI of left elbow: IMPRESSION: 1. No fracture. Small joint effusion. 2. Posterior subcutaneous edema without an organized fluid collection. 3. Distal biceps and brachialis muscle strains/partial tears. 4. Common extensor tendinosis. Jose Martin Mccoy MD Fellow, Musculoskeletal Radiology I personally reviewed the images and, if necessary, I edited the report. I agree with the report as now presented. DICTATED BY: LINWOOD SUH MD DATE/TIME DICTATED:08/07/161299 SPINNING DOFFER:TAMMY DATE/TIME TRANSCRIBED:08/07/161299 Echocardiography on 08/04/16: FINDINGS Left Ventricle Normal size left ventricle. Left ventricular wall thickness mildly increased. Normal left ventricular ejection fraction estimated at 60-65%. Right Ventricle Normal right ventricular size and function. Right Atrium Normal right atrial size. Left Atrium Left atrial size at the upper limits of normal. Mitral Valve Mitral valve normal in structure and function. Trace to mild mitral regurgitation. Aortic Valve Aortic valve is normal in structure and function. Tricuspid Valve Tricuspid valve is normal in structure and function. Trace to mild tricuspid regurgitation. Right ventricular systolic pressure estimated to be within the normal range at 25 mmHg. Pulmonic Valve Pulmonic valve not well visualized, grossly normal. Pericardium No pericardial effusion. Great Vessels Normal size aortic root. CONCLUSIONS Normal left ventricular systolic function with mild concentric hypertrophy. Borderline dilated left atrium. No significant valvular abnormalities noted. Monster Erazo M.D. (Electronically Signed) Final Date: 04 August 2016 17:49 Pertinent Lab Results: On admission: Laboratory Tests 08/03/16 1730: Urine Color YEL, Urine Clarity CLEAR, Urine pH 6.5, Ur Specific Sheldahl <= 1.005 , Urine Protein NEG, Urine Ketones NEG, Urine Nitrite NEG, Urine Bilirubin NEG, Urine Urobilinogen 0.2, Ur Leukocyte Esterase TRACE H, Ur Microscopic SEDIMENT EXAMINED, Urine RBC 3-5, Urine WBC 50-75 H, Ur Epithelial Cells FEW, Micro UA Comment BUDDING YEAST H, Urine Hemoglobin TRACE-INTACT, Urine Glucose >=1000 H 08/03/16 1715: Bicarbonate Actual 28 H, Mixed VBG pH 7.33, Mixed VBG pCO2 55 H, Mixed VBG O2 Saturation 31 L, Carboxyhemoglobin 0.4 L, O2 Concentration % R/A, Anion Gap 10 , Estimated GFR 22 L, BUN/Creatinine Ratio 23.2, Glucose 919 *H, Hemoglobin A1c Pending, Serum Osmolality 339 H, Calcium 9.7, Magnesium 1.1 L, Total Bilirubin 0.8, AST 30, ALT 39, Alkaline Phosphatase 128 H, Troponin I < 0.01, Total Protein 6.0 L, Albumin 3.4 L, Globulin 2.6, Albumin/Globulin Ratio 1.3, Phlebotomy Draw Site VENOUS, Acetone Level NEGATIVE 08/03/16 1600: CBC w Diff NO MAN DIFF REQ, RBC 3.39 L, MCV 95.0, MCH 32.8 H, RDW 14.9 H, MPV 12.6 H, Gran % 76.7 H, Lymphocytes % 15.6 L, Monocytes % 6.2, Eosinophils % 1.2, Basophils % 0.3, Absolute Granulocytes 4.0, Absolute Lymphocytes 0.8 L, Absolute Monocytes 0.3, Absolute Eosinophils 0.1, Absolute Basophils 0, PUBS MCHC 34.5 Microbiology 08/03 173 URINE ROUT: Urine Culture - RECD Diagnostic Data EKG Results Normal sinus rhythm at 71, QTC 422, no ST-T wave changes On the day of discharge: 08/07/16 0454: Anion Gap 5, Estimated GFR 33 L, Glucose 173 H, Calcium 9.5, Phosphorus 2.9, Magnesium 1.3 L, Total Bilirubin 0.4, AST 64 H, ALT 46, Albumin 2.7 L, CBC w Diff NO MAN DIFF REQ, RBC 2.95 L, MCV 95.7, MCH 33.0 H, RDW 14.7 H, MPV 10.6 H, Gran % 61.5, Lymphocytes % 29.1, Monocytes % 8.0, Eosinophils % 1.0, Basophils % 0.4, Absolute Granulocytes 2.3, Absolute Lymphocytes 1.1 L, Absolute Monocytes 0.3, Absolute Eosinophils 0, Absolute Basophils 0, PUBS MCHC 34.5 08/06/16 1800: Cortisol PM Sample 21.9 after 30 min, and 18.9 after 60 min of 250mcg of Co- Syntropin injection IV (baseline was 9.9 before injection) (part of Co-syntropin test) Disposition Summary Disposition Principal Diagnosis: Hyperosmolar hyperglycemic nonketotic state Additional Diagnosis: Type 2 diabetes mellitus, hyperlipidemia, hypertension, gout, liver cirrhosis of unknown type, portal hypertension with bases and gastropathy, GERD, restless leg syndrome, depression, left elbow musculoskeletal pain without history of trauma Discharge Disposition: home or self care Discharge Instructions General Discharge Information Code Status: Full Code Patient's Diet: Diabetic diet Patient's Activity: As tolerated Follow-Up Instructions/Appts: Measure blood sugar level and take your insulin regularly as prescribed. Please visit your issuing operator within 7-10 days of discharge. Please visit your primary care physician within 7-10 days of discharge. Please follow-up with Dr. Prasanna Winn cadmium liquor maker within 5-7 days of discharge. Please return to emergency if symptoms worsen. Medications at Discharge Discharge Medications: Stop taking the following medications: Insulin Detemir (Levemir) 100 UNIT/ML VIAL Inject into fatty tissue As Directed Insulin-Lantus (Lantus) 100 UNIT/ML VIAL Inject into fatty tissue Every Morning Insulin-Lantus (Lantus) 100 UNIT/ML VIAL Inject into fatty tissue Every night Continue taking these medications: Amlodipine Besylate (Amlodipine Besylate) 10 MG TABLET 1 Tablet ORAL DAILY Qty = 90 Comments: Last Taken: 08/07/16 Time: 1000 Spironolactone (Aldactone) 50 MG TABLET 1 Tablet ORAL TWICE DAILY Instructions: Reason to Stop at ADM: ON FLUIDS Comments: Last Taken: NOT GIVEN IN HOSPITAL Time: Nadolol (Nadolol) 20 MG TABLET 1 Tablet ORAL DAILY Comments: Last Taken: 08/07/16 Time: 1000 Furosemide (Lasix) 20 MG TABLET 60 Milligram ORAL TWICE DAILY Instructions: Reason to Stop at ADM: DEHYDRATED, JOHN, HHNS Comments: Last Taken: NOT GIVEN IN HOSP[ITAL TiME: Levothyroxine Sodium (Levothyroxine Sodium) 175 MCG TABLET 1 Tablet ORAL DAILY Comments: Last Taken: 08/07/16 Time: 0700 Lovastatin (Lovastatin) 20 MG TABLET 1 Tablet ORAL DAILY Comments: Last Taken: 08/06/16 Time: 1700 Allopurinol (Zyloprim) 100 MG TABLET 1 Tablet ORAL DAILY Comments: Last Taken: 08/07/16 Time: 1000 Omeprazole (Omeprazole) 40 MG CAPSULE.DR 1 Capsule ORAL DAILY Comments: Last Taken: 08/07/16 Time: 0700 Mirabegron (Myrbetriq) 50 MG TAB.ER.24H 1 Tablet ORAL DAILY Comments: Last Taken: NOT GIVEN IN HOSPITAL Time: Cyanocobalamin (Vitamin B-12) 1,000 MCG TABLET 1 Tablet ORAL DAILY Comments: Last Taken: 08/07/16 Time: 1000 Magnesium Oxide (Magnesium) 500 MG CAPSULE 1 Capsule ORAL DAILY Comments: Last Taken: 08/07/16 Time: 1000 Cholecalciferol (Vitamin D3) (Vitamin D) 5,000 UNIT TABLET 1 Tablet ORAL DAILY Comments: Last Taken: 08/07/16 Time: 1000 Duloxetine HCl (Cymbalta) 60 MG CAPSULE.DR 1 Capsule ORAL DAILY Comments: Last Taken: 08/07/16 Time: 1000 Gabapentin (Gabapentin) 300 MG CAPSULE 1 Capsule ORAL TWICE DAILY Instructions: Reason to Stop at ADM: JOHN, MAY RESTART TOMORROW OR DAY AFTER Comments: Last Taken: NOT GIVEN IN HOSPITAL Time: Start taking the following new medications: Miconazole Nitrate (Miconazole Nitrate) 2 % CREAM.APPL 1 Application VAGINALLY TWICE DAILY Days = 4 No Refills Insulin Detemir (Levemir) 100 UNIT/ML VIAL 14 Units Inject into fatty tissue TWICE DAILY Days = 14 No Refills Insulin Aspart (Novolog) 100 UNIT/ML VIAL 0 Units Inject into fatty tissue BEFORE MEALS AND AT BEDTIME Days = 28 No Refills Instructions: SLIDING SCALE: 80-150 4 UNITS 151-200 6 UNITS 201-250 8 UNITS 251-300 10 UNITS 301-350 12 UNITS 351-400 14 UNITS >400 16 UNITS AT BEDTIME 251-300 2 UNITS 301-350 3 UNITS 351-400 4 UNITS >400 5 UNITS Ciprofloxacin HCl (Cipro) 500 MG TABLET 500 Milligram ORAL TWICE DAILY Qty = 12 No Refills Comments: Last Taken: 08/07/16 Time: 1000 Oxybutynin Chloride (Oxybutynin Chloride) 5 MG TABLET 2.5 Milligram ORAL TWICE DAILY Qty = 30 No Refills Copies To: ESTHER GARCÍA MD; PRASANNA WINN MD; VINCENT PEREZ,ESTHER RIVERA MD; PRASANNA WINN MD; MARIUSZ KAUR MD
--- NOTE | 2016-08-07 14:42 | PN- Diabetes ---
Assessment/Plan Assessment: The patient came into the hospital with a hyperosmolar state. She was treated with IV fluids and insulin. Presently she is eating and on a basal bolus regimen. The patient feels improved. Currently she is on Levemir 14 units twice a day, Novolog coverage before meals and Novolog coverage at bedtime. Her FSGs were 98, 184, 176, 183 and 194. Repeat am lab showed sodium 134, K 4.8, Mg 1.3, albumin 2.7, AST 64 and ALT 46. ACTH stimulation test was done--- baseline cortisol 9.9, 30 mins cortisol 18.9 and 60 mins cortisol 21.9. Currently there is no evidence of adrenal insufficiency. As per team, patient might be going home today. Plan: FSGs have been relatively stable. will continue the current insulin regimen--- Levemir 14 units twice a day, Novolog coverage before meals and Novolog coverage at bedtime. Discharge plan for diabetes will be the same insulin regimen as inpatient. f/u in office after discharge. Subjective Subjective: She feels better and would like to go home. Objective Last 24 Hrs of Vital Signs/I&O Vital Signs Date Time Temp Pulse Resp B/P Pulse O2 O2 Flow FiO2 Ox Delivery Rate 08/07 08 98.1 56 22 108/70 92 Room Air 08/07 0000 98 Room Air 08/06 2338 97.4 62 20 128/78 94 Room Air 08/06 1600 97.4 64 22 128/80 94 Room Air Intake & Output 08/07 1600 08/07 0800 08/07 0000 Intake Total 400 240 Output Total 300 Balance 100 240 Intake, IV 0 Intake, Oral 400 240 Number 1 Bowel Movements Output, Urine 300 Findings Pertinent Lab/Unruly Results: Laboratory Tests 08/07 08/06 08/06 0454 1800 1730 Chemistry Sodium (137 - 145 mmol/L) 134 L Potassium (3.5 - 5.1 mmol/L) 4.8 Chloride (98 - 107 mmol/L) 101 Carbon Dioxide (22 - 30 mmol/L) 27 Anion Gap (5 - 16) 5 BUN (7 - 17 mg/dL) 31 H Creatinine (0.5 - 1.0 mg/dL) 1.5 H Estimated GFR (>60 ml/min) 33 L Glucose (65 - 99 mg/dL) 173 H Calcium (8.4 - 10.2 mg/dL) 9.5 Phosphorus (2.5 - 4.5 mg/dL) 2.9 Magnesium (1.6 - 2.3 mg/dL) 1.3 L Total Bilirubin (0.2 - 1.3 mg/dL) 0.4 AST (14 - 36 U/L) 64 H ALT (9 - 52 U/L) 46 Albumin (3.5 - 5.0 g/dL) 2.7 L Cortisol PM Sample (1.7 - 14.1) 18.9 H 21.9 H Hematology CBC w Diff NO MAN DIFF REQ WBC (4.8 - 10.8 /CUMM) 3.7 L RBC (4.20 - 5.40 /CUMM) 2.95 L Hgb (12.0 - 16.0 G/DL) 9.7 L Hct (37 - 47 %) 28.2 L MCV (81.0 - 99.0 FL) 95.7 MCH (27.0 - 31.0 PG) 33.0 H RDW (11.5 - 14.5 %) 14.7 H Plt Count (130 - 400 /CUMM) 62 L MPV (7.4 - 10.4 FL) 10.6 H Gran % (42.2 - 75.2 %) 61.5 Lymphocytes % (20.5 - 51.1 %) 29.1 Monocytes % (1.7 - 9.3 %) 8.0 Eosinophils % (0 - 5 %) 1.0 Basophils % (0.0 - 2.0 %) 0.4 Absolute Granulocytes (1.4 - 6.5 /CUMM) 2.3 Absolute Lymphocytes (1.2 - 3.4 /CUMM) 1.1 L Absolute Monocytes (0.10 - 0.60 /CUMM) 0.3 Absolute Eosinophils (0.0 - 0.7 /CUMM) 0 Absolute Basophils (0.0 - 0.2 /CUMM) 0 PUBS MCHC (33.0 - 37.0 G/DL) 34.5 03/09 1730 Chemistry Cortisol PM Sample (1.7 - 14.1) 9.9
--- NOTE | 2016-08-07 15:35 | MRI REPORT ---
EXAMINATION: MRI ELBOW WITHOUT CONTRAST, LEFT CLINICAL INFORMATION: Left elbow pain and effusion. Evaluate for a fracture. COMPARISON: Left elbow radiographs dated 08/03/2016. TECHNIQUE: MRI without contrast of the left elbow was performed on a high-field strength scanner. FINDINGS: Ulnar collateral ligament: Intact. Common flexor tendon: Intact. Radial collateral ligament: Intact. Common extensor tendon: There is increased signal within the common extensor tendon, consistent with tendinosis. Biceps/triceps tendon: There is edema adjacent to the distal biceps insertion as well as within the distal brachialis muscle, which could represent strains/partial tears. Articular cartilage/bone: There is no fracture or stress reaction. There is cystic change at the posterior aspect of the capitellum, which could represent degeneration or a normal variation. Ulnar nerve: Intact. Joint fluid/soft tissues: There is a small joint effusion. There is subcutaneous edema posterior to the olecranon without an organized fluid collection. IMPRESSION: 1. No fracture. Small joint effusion. 2. Posterior subcutaneous edema without an organized fluid collection. 3. Distal biceps and brachialis muscle strains/partial tears. 4. Common extensor tendinosis. Jose Martin Mccoy MD Fellow, Musculoskeletal Radiology I personally reviewed the images and, if necessary, I edited the report. I agree with the report as now presented.
== END 2016-08-07 12:30 | DRG 638 ==
LOC: ENRESERVDT → ENRESERVTM → ERH 15:29 → ERHI 18:36 → CRI 18:36
PROVIDERS: Physician Assistant; Student in an Organized Health Care Education/Training Program; ADMIT Student in an Organized Health Care Education/Training Program
DX: E11.00 Type 2 diabetes mellitus with hyperosmolarity without nonketotic hyperglycemic-hyperosmolar coma (NKHHC) (principal); N17.9 Acute kidney failure, unspecified; K76.6 Portal hypertension; I85.10 Secondary esophageal varices without bleeding; D69.6 Thrombocytopenia, unspecified; E11.22 Type 2 diabetes mellitus with diabetic chronic kidney disease; N18.3 Chronic kidney disease, stage 3 (moderate); E83.42 Hypomagnesemia; N39.0 Urinary tract infection, site not specified; E11.65 Type 2 diabetes mellitus with hyperglycemia; K75.81 Nonalcoholic steatohepatitis (NASH); B37.3 Candidiasis of vulva and vagina; Z79.4 Long term (current) use of insulin; E66.9 Obesity, unspecified; Z68.35 Body mass index [BMI] 35.0-35.9, adult; I12.9 Hypertensive chronic kidney disease with stage 1 through stage 4 chronic kidney disease, or unspecified chronic kidney disease; T38.3X6A Underdosing of insulin and oral hypoglycemic [antidiabetic] drugs, initial encounter; Y92.009 Unspecified place in unspecified non-institutional (private) residence as the place of occurrence of the external cause; E78.00 Pure hypercholesterolemia, unspecified; M10.9 Gout, unspecified; E78.5 Hyperlipidemia, unspecified; F32.9 Major depressive disorder, single episode, unspecified; K21.9 Gastro-esophageal reflux disease without esophagitis; G25.81 Restless legs syndrome; E03.9 Hypothyroidism, unspecified; R32 Unspecified urinary incontinence; S53.402A Unspecified sprain of left elbow, initial encounter; X58.XXXA Exposure to other specified factors, initial encounter; M77.12 Lateral epicondylitis, left elbow
CPT/HCPCS: 73221; 86200; CCU; 36415; 73080-LT; 81001; 82436; 86431; 87040; 87086; 93005; 93010; 93306; 96372; 96374; 96375; 99291; J0696; J0834; J1815; J2405; J7042

== ENCOUNTER 2017-07-02 17:02 | Inpatient (IN) | payer OTHER, MEDICARE ==
[~2017-07-02] VITALS: Ht 167.6 cm; Wt 104.3 kg
[~2017-07-02 17:02] MED LIST changes: +ALDACTONE50 M1 PO; +AMLODIPINE BESY10 M1 PO; +CARBIDOPA-LEVO1 EAC7 PO; +CIPRO500 M1 PO; +COZAAR50 M1 PO; +CYMBALTA60 M1 PO; +GABAPENTIN300 M2 PO; +LANTUS100 UNIT/1 SC; +LASIX20 M1 PO; +LEVEMIR FL100 UNIT/1 SC; +LEVEMIR FL100 UNIT/1 SQ; +LEVEMIR100 UNIT/1 SC; +LEVOTHYROXINE175 MCG PO; +LOVASTATIN20 M1 PO; +LYRICA150 M1 PO; +LYRICA75 M1 PO; +MAGNESIUM500 M2 PO; +MICONAZOLE NITR45 GM VAG; +MYRBETRIQ50 M1 PO; +NADOLOL20 M1 PO; +NOVOLOG FL100 UNIT/1 SQ; +NOVOLOG100 UNIT/2 SC; +OMEPRAZOLE40 M1 PO; +OXYBUTYNIN CHLOR5 M2 PO; +PREDNISONE20 M1 PO; +SYNTHROID200 MCG PO; +VITAMIN B-121000 MC3 PO; +VITAMIN D5000 UNIT PO; +ZYLOPRIM100 M1 PO
[2017-07-02 17:53] LABS: ABSOLUTE BASOPHIL COUNT 0 /CUMM (0.0-0.2); ABSOLUTE EOSINOPHIL COUNT 0.2 /CUMM (0.0-0.7); ABSOLUTE GRANULOCYTE CT 3.8 /CUMM (1.4-6.5); ABSOLUTE LYMPH COUNT 0.7 /CUMM (1.2-3.4); BASOPHIL % 0.4 % (0.0-2.0)
[2017-07-02 17:59] LABS: ABSOLUTE MONOCYTE COUNT 0.5 /CUMM (0.10-0.60); EOSINOPHIL % 3.4 % (0-5); GRANULOCYTE % 72.6 % (42.2-75.2); MEAN CORPUSCULAR HGB 32.2 PG (27.0-31.0); MEAN CORPUSCULAR HGB CONC 32.9 G/DL (33.0-37.0); MEAN CORPUSCULAR VOLUME 97.9 FL (81.0-99.0); MEAN PLATELET VOLUME 10.5 FL (7.4-10.4); RBC DISTRIBUTION WIDTH 18.4 % (11.5-14.5); RED BLOOD CELL CT 2.56 /CUMM (4.20-5.40); WHITE BLOOD CELL COUNT 5.3 /CUMM (4.8-10.8)
[2017-07-02 18:00] LABS: PLATELET COUNT 104 /CUMM (130-400)
--- NOTE | 2017-07-02 19:12 | ED GENERAL ADULT ---
History of Present Illness General Chief Complaint: General Adult Stated Complaint: SENT BY VINCENT FOR BODY SWELLING Source: patient, family, old records Exam Limitations: no limitations Allergies Coded Allergies: Opioids - Morphine Analogues (ITCH, GI UPSET 08/03/16) Opioids-Meperidine and Related (ITCH, GI UPSET 08/03/16) Opioids-Methadone and Related (ITCH, GI UPSET 08/03/16) codeine (GI UPSET 08/03/16) morphine (ITCHING, GI UPSET 08/03/16) Reconcile Medications Allopurinol (Zyloprim) 100 MG TABLET 1 TAB PO DAILY GOUT (Reported) Amlodipine Besylate 10 MG TABLET 1 TAB PO DAILY BP (Reported) Carbidopa/Levodopa (Sinemet 25-100 MG Tablet) 25 MG-100 MG TABLET 1 TAB PO TID GAIT/TREMOR INSTABILITY (Reported) Cyanocobalamin (Vitamin B-12) 1,000 MCG TABLET 1 TAB PO DAILY SUPPLEMENT ( Reported) Duloxetine HCl (Cymbalta) 60 MG CAPSULE.DR 1 CAP PO Wednesday MENTAL HEALTH (Reported) Duloxetine Hydrochloride (Cymbalta) 30 MG CAPSULE.DR 1 CAP PO [facility] (Reported) Furosemide 20 MG TABLET 1 TAB PO DAILY DIURETIC (Reported) Insulin Aspart, Recombinant (Novolog Flexpen) 100 UNIT/ML INSULN.PEN 0 SQ TIDAC/HS DIABETES Please see instructions below and follow before meal sliding scale and bedtime sliding scale as prescribed. Insulin Detemir (Levemir) 100 UNIT/ML VIAL 20 UNITS SC BID DM (Reported) Levothyroxine Sodium (Synthroid) 200 MCG TABLET 1 TAB PO DAILY AC HYPOTHYROIDISM Lovastatin 20 MG TABLET 1 TAB PO DAILY CHOLESTEROL (Reported) Magnesium Oxide (Magnesium) 500 MG CAPSULE 1 CAP PO DAILY SUPPLEMENT ( Reported) Mirabegron (Myrbetriq) 50 MG TAB.ER.24H 1 TAB PO DAILY BLADDER (Reported) Nadolol 20 MG TABLET 1 TAB PO DAILY BP (Reported) Omeprazole 40 MG CAPSULE.DR 1 CAP PO DAILY GI (Reported) Spironolactone 25 MG TABLET 1 TAB PO DAILY DIURETIC (Reported) Triage Note: PT TO ED S/O "I HAD BLOODWORK THAT DR RECIO ORDERED, AND THEY CALLED ME TONIGHT AND TOLD ME TO COME RIGHT IN, MY KIDNEY FUNCTIONS ARE OFF". Triage Nurses Notes Reviewed? yes Onset: Abrupt Duration: week(s): (1), constant Timing: recent history Injury Environment: home Severity: moderate Severity Numbers: 6 No Modifying Factors: none Associated Symptoms: DENIES HPI: 81 Year old female past medical history of diabetes mellitus, hyperlipidemia, hypertension, hypothyroidism, urinary incontinence, gout, cirrhosis, portal hypertension, restless leg syndrome, depression, GERD presents sent in by her primary care physician after she had outpatient blood work performed that shows she had an elevated creatinine. The patient states that she saw her primary care physician last week for generalized worsening body swelling worsen her legs. She reports to feeling run down and tired poor appetite. No chest pain shortness of breath fever chills nausea vomiting. Patient is on Lasix 20 mg (Chidi Muro) Vital Signs & Intake/Output Vital Signs & Intake/Output Vital Signs Date Time Temp Pulse Resp B/P B/P Pulse O2 O2 Flow FiO2 Mean Ox Delivery Rate 07/02 2348 98.0 66 16 98 07/02 2101 97.5 61 18 107/59 98 Room Air 07/02 1727 97.2 61 18 127/85 96 Room Air Room Air (Johanna PEREZ,Syed Muñoz) Past History Travel History Traveled to [place] past 21 day No Medical History Any Pertinent Medical History? see below for history Neurological: dizziness EENT: NONE Cardiovascular: hypertension, hyperlipidemia Respiratory: NONE Gastrointestinal: GERD, portal hypertension, gastropathy varices Hepatic: cirrhosis Renal: urinary incontinence Musculoskeletal: gout, restless leg syndrome Psychiatric: depression Endocrine: diabetes, hypothyroidism Blood Disorders: thrombocytopenia Cancer(s): NONE MANAGER SALT/Reproductive: NONE Other Medical Hx: Urinary incontinence History of MRSA: No History of VRE: No History of CDIFF: No Influenza Vaccine: 03/14/17 Surgical History Surgical History: appendectomy, cholecystectomy, hysterectomy, BILAT KNEE REPLACEMENTS Psychosocial History Who do you live with Spouse Services at Home None What is your primary language [place] Tobacco Use: Never used ETOH Use: denies use Illicit Drug Use: denies illicit drug use Family History Family History, If Any: FATHER (Had a history of brain aneurysm and of stroke at the age of 73). MOTHER (Mother at the age of 26 years, unknown cause). Hx Contributory? No (Chidi Muro) Review of Systems Review of Systems Constitutional: Reports: see HPI. Comments Review of systems: See HPI, All other systems negative. Constitutional, no chills no fever HEENT: no sore throat no congestion Cardiovascular: No chest pain , no palpitation Skin: no rashes, no change in skin Respiratory: dyspnea no cough GI: No nausea no vomiting, no diarrhea, : No dysuria No hematuria, no frequency Muscle skeletal: No joint pain, no back pain Neurologic: , no headache Psych: No stress Heme/endocrine: No bruising Immunology: No lymphadenopathy (Eleuterio GENAO,Chidi) Physical Exam Physical Exam General Appearance: well developed/nourished, alert, awake Comments: Well-developed well-nourished person in no acute distress HEENT: Normal EENT exam; PERRL, EOMI, HEAD is atraumatic. moist mucous membranes. Neck: Supple, normal range of motion without pain or tenderness Back: Nontender, no CVA tenderness. Full range of motion Cardiovascular: Regular rate and rhythms no murmur Respiratory: Chest nontender.There were no bony deformities, no asymmetry. No respiratory distress. Patient speaking in full complete sentences. Breath sounds clear to auscultation bilaterally: NO W/R/R Abdomen: Soft, nontender nondistended, no appreciable organomegaly. Normal bowel sounds. No rebound/guarding, No ascites. Extremity: 3+ B/L LE edema, full range of motion of extremities Neuro: Alert oriented x3, motor sensory normal, There were no obvious focal neurologic abnormalities. Skin: No appreciable rash on exposed skin, skin is warm and dry. Psych: Mood and affect is normal, memory and judgment is normal. Core Measures ACS in differential dx? Yes CVA/TIA Diagnosis: No Sepsis Present: No Sepsis Focused Exam Completed? No (Chidi Muro) Progress Differential Diagnoses I considered the following diagnoses in my evaluation of the patient: JOHN, CHF, ELECTROLYTE ABNORMALITY, DEHYDRATION, ACS, MALIGNANCY Diagnostic Imaging: Viewed by Me: Radiology Read. Discussed w/RAD: Radiology Read. Radiology Impression: PATIENT: ANGELA LEMOS PRESENT AGE: 81 PATIENT ACCOUNT NO: [id number] : 36 LOCATION: [facility] ORDERING PHYSICIAN: Chidi GENAO SERVICE DATE: 07/02/17 EXAM TYPE: RAD - XRY- PORTABLE CHEST XRAY EXAMINATION: XR PORTABLE CHEST CLINICAL INFORMATION: Leg swelling. Shortness of breath. COMPARISON: Chest radiograph 05/14/2017 TECHNIQUE : Portable frontal view of the chest was obtained. FINDINGS: Moderate scattered aortic calcific atherosclerosis is noted. The cardiac silhouette is normal in size. No effusions or pneumothoraces are noted. A grossly normal pattern of pulmonary vasculature is present. No pulmonary consolidation is visualized. IMPRESSION: 1. No acute abnormalities. 2. Lungs clear. No evidence of pulmonary edema. 3. Moderate aortic calcific atherosclerosis. DICTATED BY: Patrick Ferguson MD DATE/TIME DICTATED:07/02/172018 CONCRETE HANDLER:TAMMY DATE/TIME TRANSCRIBED:07/02/172018 CONFIDENTIAL, DO NOT COPY WITHOUT APPROPRIATE AUTHORIZATION. <Electronically signed in Other Vendor System> SIGNED BY: Patrick Ferguson MD 07/02/172023 Initial ED EKG: NSR AT 60, NO ACUTE ST SEG CHANGES, NORMAL AXIS Prior EKG: unchanged (Chidi Muro) Plan of Care: Orders Procedure Date/time Status CBC WITHOUT DIFFERENTIAL 07/03 599 Active BASIC ELECTROLYTES PLUS BUN&CR 07/03 599 Active Pathway - chart 07/02 2346 Active House Staff 07/02 2346 Active Code Status 07/02 2346 Active URINE OSMOLALITY 07/02 2327 Active URINE LYTES, SPOT 07/02 232 Active Patient Data 07/02 2157 Active Misc Message 07/02 2112 Active ED Holding Orders 07/02 2112 Active Admit to inpatient 07/02 211 Active Vital Signs 07/02 2112 Active Code Status 07/02 211 Complete Intake & Output 07/02 210 Active Add-on Test (ER Only) 07/02 1915 Active TROPONIN LEVEL 07/02 1740 Complete URINALYSIS 07/02 1729 Active COMPREHENSIVE METABOLIC PANEL 07/02 1729 Complete CBC WITHOUT DIFFERENTIAL 07/02 1729 Complete B-TYPE NATRIURETIC PEP (BNP) 07/02 1729 Complete EKG 07/02 1703 Active VTE Mechanical Prophylaxis 07/02 UNK Active Current Medications Sig/Jennifer Start time Last Medication Dose Stop Time Status Admin Heparin Sodium 5,000 UNIT Q8 07/03 0600 UNVr (Porcine) Laboratory Tests 07/02/17 1740: Anion Gap 18 H, Estimated GFR 13 L, BUN/Creatinine Ratio 21.1, Glucose 217 H, Calcium 10.7 H, Total Bilirubin 0.9, AST 25, ALT 22, Alkaline Phosphatase 155 H, Troponin I 0.02, Icv-K-Kvoaonztjyz Pept 2850 H, Total Protein 7.0, Albumin 4.0, Globulin 3.0, Albumin/Globulin Ratio 1.3, CBC w Diff NO MAN DIFF REQ, RBC 2.56 L, MCV 97.9, MCH 32.2 H, MCHC 32.9 L, RDW 18.4 H, MPV 10.5 H, Gran % 72.6, Lymphocytes % 14.1 L, Monocytes % 9.5 H, Eosinophils % 3.4, Basophils % 0.4, Absolute Granulocytes 3.8, Absolute Lymphocytes 0.7 L, Absolute Monocytes 0.5, Absolute Eosinophils 0.2, Absolute Basophils 0 07/02/171736: Oph-Q-Bzmofroravz Pept Cancelled LABS ORDERED, OLD RECORDS REVIEWED. CASE D/W DR GUTIERRES AGREES WITH PLAN (Chidi Muro) (Johanna PEREZ,Syed Muñoz) Departure Departure Time of Disposition: 2049 Disposition: STILL A PATIENT Condition: Stable Clinical Impression Primary Impression: JOHN (acute kidney injury) Referrals: Anoop Nava MD (PCP/Family) Departure Forms: Customer Survey General Discharge Information Admission Note Spoke With: Elvis Taylor MD Documentation of Exam: Documentation of any treatments & extenuating circumstances including Concerns Regarding Discharge (functional status, medication knowledge or non-compliance, living conditions, etc.) that warrant an admission rather than observation: NEPHROLOGY AND CARDIOLOGY CONSULT, TREND LABS, PREMATURE DISCHARGE WOULD BE MEDICALLY HARMFUL (Chidi Muro) PA/PARLIAMENTARY LIBRARIAN Co-Sign Statement Statement: ED Attending supervision documentation- [X] I saw and evaluated the patient. I have also reviewed all the pertinent lab results and diagnostic results. I agree with the findings and the plan of care as documented in the PA's/PARLIAMENTARY LIBRARIAN's documentation. Patient presents for evaluation of worsening renal functions and swelling. Physical examination reveals a conversant alert patient in no acute respiratory distress. [] I have reviewed the ED Record and agree with the PA's/PARLIAMENTARY LIBRARIAN's documentation. [] Additions or exceptions (if any) to the PAs/PARLIAMENTARY LIBRARIAN's note and plan are summarized below: [] (Johanna PEREZ,Syed Muñoz) Critical Care Note Critical Care Note Critical Care Time: non-applicable (Chidi Muro)
--- NOTE | 2017-07-02 20:24 | RADIOLOGY REPORT ---
EXAMINATION: XR PORTABLE CHEST CLINICAL INFORMATION: Leg swelling. Shortness of breath. COMPARISON: Chest radiograph 05/14/2017 TECHNIQUE: Portable frontal view of the chest was obtained. FINDINGS: Moderate scattered aortic calcific atherosclerosis is noted. The cardiac silhouette is normal in size. No effusions or pneumothoraces are noted. A grossly normal pattern of pulmonary vasculature is present. No pulmonary consolidation is visualized. IMPRESSION: 1. No acute abnormalities. 2. Lungs clear. No evidence of pulmonary edema. 3. Moderate aortic calcific atherosclerosis.
[2017-07-02] MEDS ORDERED: SINEMET 25-1001 EACH PO (21:11)
[2017-07-02] MEDS ORDERED: FUROSEMIDE20 M1 PO (21:13)
[2017-07-02] MEDS ORDERED: SPIRONOLACTONE25 M1 PO (21:15)
[2017-07-02] MEDS ORDERED: LEVEMIR100 UNIT/1 SC (21:16)
[2017-07-02] MEDS ORDERED: CYMBALTA60 M1 PO (21:18)
[2017-07-02] MEDS ORDERED: CYMBALTA30 M1 PO (21:18)
--- NOTE | 2017-07-02 23:45 | History & Physical ---
Ilya PEREZ,[facility] 07/02/17 3235: General Information and HPI MD Statement: I have seen and personally examined ANGELA LEMOS and documented this H&P. The patient is a 81 year old F who presented with a patient stated chief complaint of [elevated creatinine and ascites]. Source of Information: patient, old records Exam Limitations: no limitations History of Present Illness: 81-year-old female with a past medical history of hypertension, hyperlipidemia, coronary artery disease, diabetes mellitus, liver nonalcoholic liver cirrhosis, portal hypertension, hypothyroidism, gout, urine incontinence, and chronic back pain secondary to spinal stenosis who was referred to the ED by her primary care doctor after she was found to have elevated creatinine. 3 weeks ago the patient started to notice generalize edema and worsening ascites for which her primary care doctor started her on Spiriva left colon and furosemide. During follow up earlier today she was found to have elevated creatinine up to 3.3. The patient reported recent progressive exertional dyspnea and intermittent jellylike bloody bowel movements with the last episode being a month ago. She denies fever, chills, chest pain, palpitation, orthopnea, nausea, or vomiting. Allergies/Medications Allergies: Coded Allergies: Opioids - Morphine Analogues (ITCH, GI UPSET 08/03/16) Opioids-Meperidine and Related (ITCH, GI UPSET 08/03/16) Opioids-Methadone and Related (ITCH, GI UPSET 08/03/16) codeine (GI UPSET 08/03/16) morphine (ITCHING, GI UPSET 08/03/16) Home Med list Allopurinol (Zyloprim) 100 MG TABLET 1 TAB PO DAILY GOUT (Reported) Amlodipine Besylate 10 MG TABLET 1 TAB PO DAILY BP (Reported) Carbidopa/Levodopa (Sinemet 25-100 MG Tablet) 25 MG-100 MG TABLET 1 TAB PO TID GAIT/TREMOR INSTABILITY (Reported) Cyanocobalamin (Vitamin B-12) 1,000 MCG TABLET 1 TAB PO DAILY SUPPLEMENT ( Reported) Duloxetine HCl (Cymbalta) 60 MG CAPSULE.DR 1 CAP PO Wednesday MENTAL HEALTH (Reported) Duloxetine Hydrochloride (Cymbalta) 30 MG CAPSULE.DR 1 CAP PO [facility] (Reported) Furosemide 20 MG TABLET 1 TAB PO DAILY DIURETIC (Reported) Insulin Aspart, Recombinant (Novolog Flexpen) 100 UNIT/ML INSULN.PEN 0 SQ TIDAC/HS DIABETES Please see instructions below and follow before meal sliding scale and bedtime sliding scale as prescribed. Insulin Detemir (Levemir) 100 UNIT/ML VIAL 20 UNITS SC BID DM (Reported) Levothyroxine Sodium (Synthroid) 200 MCG TABLET 1 TAB PO DAILY AC HYPOTHYROIDISM Lovastatin 20 MG TABLET 1 TAB PO DAILY CHOLESTEROL (Reported) Magnesium Oxide (Magnesium) 500 MG CAPSULE 1 CAP PO DAILY SUPPLEMENT ( Reported) Mirabegron (Myrbetriq) 50 MG TAB.ER.24H 1 TAB PO DAILY BLADDER (Reported) Nadolol 20 MG TABLET 1 TAB PO DAILY BP (Reported) Omeprazole 40 MG CAPSULE.DR 1 CAP PO DAILY GI (Reported) Spironolactone 25 MG TABLET 1 TAB PO DAILY DIURETIC (Reported) Past History Travel History Traveled to [place] past 21 day No Medical History Neurological: dizziness EENT: NONE Cardiovascular: hypertension, hyperlipidemia Respiratory: NONE Gastrointestinal: GERD, portal hypertension, gastropathy varices Hepatic: cirrhosis Renal: urinary incontinence Musculoskeletal: gout, restless leg syndrome Psychiatric: depression Endocrine: diabetes, hypothyroidism Blood Disorders: thrombocytopenia Cancer(s): NONE CVT RN/Reproductive: NONE Other Medical Hx: Urinary incontinence History of MRSA: No History of VRE: No History of CDIFF: No Influenza Vaccine: 03/14/17 Surgical History Surgical History: appendectomy, cholecystectomy, hysterectomy, BILAT KNEE REPLACEMENTS Past Family/Social History Family History Relations & Conditions if any FATHER (Had a history of brain aneurysm and of stroke at the age of 73). MOTHER (Mother at the age of 26 years, unknown cause). Psychosocial History Who Do You Live With? spouse Services at Home: None Primary Language: Romanian ETOH Use: denies use Illicit Drug Use: denies illicit drug use Living Will? no Functional Ability ADLs Independent: dressing, eating, toileting, bathing. Ambulation: independent IADLs Independent: shopping, housework, finances, food prep, telephone, medication admin. Needs Assist: transportation. Review of Systems Review of Systems Constitutional: Reports: see HPI. Exam & Diagnostic Data Last 24 Hrs of Vital Signs/I&O Vital Signs Date Time Temp Pulse Resp B/P B/P Pulse O2 O2 Flow FiO2 Mean Ox Delivery Rate 07/04 0818 122/70 07/04 0703 98.8 60 20 118/64 95 Room Air 07/04 0044 98.3 62 20 110/60 94 Room Air / 0000 94 Room Air 07/03 2228 98.6 61 18 108/60 92 02 1600 Room Air 07/03 1348 98.5 60 20 112/58 95 Room Air Intake & Output 07/04 1600 04 0800 02 0000 Intake Total 900 1190 Output Total 500 400 Balance 400 790 Intake, Blood 300 350 Product Intake, IV 600 600 Intake, Oral 0 240 Output, Urine 500 400 Assessment/Plan Assessment: This is a patient with a history of liver cirrhosis complicated by portal hypertension and ascites, for that reason she was recently started on furosemide and spironolactone after which her creatinine increased up to 3.5 from 1.9 (on April ). The worsening of creatinine can be secondary to excessive diuresis and third spacing, however hepatorenal syndrome is also in the differential. The patient has no sign suggestive of heart failure. The patient reported intermittent bloody bowel movements and her hemoglobin dropped from 10.7 during last admission down to 8.2 during this admission. Problem list * Liver cirrhosis with portal hypertension and ascites * JOHN * Anemia most likely secondary to GI loss * Hypothyroidism * Gout * Chronic back pain secondary to spinal stenosis * Urine incontinence * DM, HTN, HLD, and CAD Plan * admit to the general floor * hold all nephrotoxic medications * repeat renal function in the morning * continue allopurinol after adjusting the dose * We will send for urine analysis, osmolarity, and electrolytes (may be abnormal bc of recent lasix) * consult food service clerk * guaiac all stool * We repeat CBCs every 12 hours * order abdominal ultrasound * GI consult for possible GI bleed and for liver cirrhosis * We will consult endocrinology for poorly controlled blood sugar * We will order echocardiogram * Diabetic diet * Long and short acting insulin * Full code As Ranked By This Provider Problem List: 1. Anemia 2. Acute kidney failure Core Measures/Misc (02/14) Acute Coronary Syndrome ACS Diagnosis: No Congestive Heart Failure Congestive Heart Failure Diagnosis No Cerebrovascular Accident CVA/TIA Diagnosis: No VTE (View Protocol) VTE Risk Factors Age>40 No Mechanical VTE Prophylaxis d/t N/A MechProphylax Ordered No VTE Pharm Prophylaxis d/t NA PharmProphylax ordered Sepsis (View protocol) Sepsis Present: No Elvis Taylor 07/03/17 0643: Attending MD Review Statement Attending Statement Attending MD Statement: examined this patient, discuss w/resident/PA/MOVIE PROJECTIONIST, agreed w/resident/PA/MOVIE PROJECTIONIST, reviewed EMR data (avail), reviewed images, amended to note Attending Assessment/Plan: CC: Elevated creatinine PMH: DM, HTN, HLD, CAD, 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, with his aphasia where he says, portal hypertension, ROD, hypothyroidism, gout, spinal stenosis, incontinence Patient was suggested to go to ER for elevated creatinine by her primary care physician. Patient has been getting abdominal distention, leg swelling since last 3 weeks, patient was empirically started on furosemide and Aldactone by primary care physician and was followed up with labs as routine. On labs she was found to have elevated creatinine so she was suggested to go to ER. She has mild reduction in ankle swelling with the "fluid pills". She does not carry a diagnosis of congestive heart failure, She has never seen a specialist for cirrhosis. She endorses mild dyspnea on exertion, no orthopnea, PND. Intermittently she loses red blood in her stool, last episode approximately a month back. Denies any abdominal pain, fever, chills, chest pain, chest tightness. Vitals: Afebrile, pulse in 60s, RR 18, blood pressure 06/26/1984, saturating 96% on room air. On examination: A O 3, cooperative, no acute distress, neck supple, JVD normal, no lymphadenopathy, mucosa moist, no focal neurological deficit, bilateral lower extremity appears enlarged but I could not appreciate any pitting edema, no obvious skin rashes or inflammation CVS: S1-S2, RRR. RS: Clear to auscultate bilaterally. Abdomen: Soft, NT, distended, could not appreciate fluids thrill, bowel sounds present. Labs: WBC 5.3, hemoglobin 8.2, hematocrit 25.0, platelet 104, sodium 143, potassium 4.8, chloride 98, bicarbonate 27, BUN 74, creatinine 3.5, glucose 217, calcium 10.1, proBNP 2850, troponin 0.02, albumin 4.0, INR 1.44 CXR: 1. No acute abnormalities. 2. Lungs clear. No evidence of pulmonary edema. 3. Moderate aortic calcific atherosclerosis. ECG: No acute changes Assessment and plan 81-year-old female with extensive past medical history presented in ER for elevated creatinine. Her creatinine increased to 3.5 from 1.9 on May 16. Last 3-4 weeks patient has been noticing increased abdominal distention, leg edema for which she followed up with primary care physician and was treated with furosemide and Aldactone, labs were obtained as routine follow-up which showed elevated creatinine. Her elevated creatinine could be secondary to excessive diuresis. At could not appreciate significant leg edema, fluid thrill on examination. There is no JVD, no crackles on auscultation. her "edema" is less likely secondary to cirrhosis, her albumin is in normal range. Leg swelling has mildly reduced according to her. Given her significant cirrhosis history hepatorenal syndrome should be ruled out. The same time heart failure should be ruled out given her extremity swelling. Heart failure appears less likely she does not have any orthopnea, PND, JVD, crackles on examination. Elevated proBNP appears secondary to elevated creatinine. JOHN could also be prerenal, will hold off diuresis. At this point cannot give any IV fluids considering ejection fraction and cardiac status unknown in setting of elevated proBNP. Patient will benefit from nephrology consult. Her shortness of breath could be secondary to anemia, she has intermittent bloody bowel movement and there is significant drop in H&H as compared to April. + Acute kidney injury on chronic kidney disease + Anemia + ?Peripheral edema + History of DM, HTN, HLD, CAD, 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, with his aphasia where he says, portal hypertension, ROD, hypothyroidism, gout, spinal stenosis, incontinence - Admit to general medicine - Discontinue Lasix and Aldactone - Renal adjustment dose of allopurinol - Guaiac stool - GI consult for chronic intermittent lower GI bleed and cirrhosis - Nephrology consult for acute kidney injury on chronic kidney disease - 2-D echocardiogram in a.m. - Ultrasound abdomen to rule out ascites - Urine osmolality and electrolytes - Endocrinology consult for hyperglycemia
[2017-07-03 00:33] VITALS: BP 110/62
[2017-07-03 03:38] LABS: PT 15.1 SEC (9.4-12.5)
--- NOTE | 2017-07-03 06:44 | Admission Certification ---
Admission Certification Certification Statement - As attending physician, I certify that at the time of - admission, based on clinical presentation, severity of - symptoms, need for further diagnostic testing and - therapeutic interventions, and risk of adverse outcomes - without in-hospital treatment, in my clinical assessment, - this patient requires an acute hospital stay for a minimum - of two nights or longer. I have also considered psychsocial - factors such as support system, advanced age, financial - issues, cognitive issues, and failed out-patient treatments, - past re-admission history, safety of patient, and lack of - compliance as applicable. Specific rationale supporting this admission is: Acute kidney injury and chronic kidney disease
[2017-07-03 07:44] VITALS: BP 116/60
--- NOTE | 2017-07-03 11:46 | Cons- Nephrology ---
General Information and HPI Consulting Request Date of Consult: 07/03/17 Requested By: Elvis Taylor MD Reason for Consult: Worsening renal function Source of Information: patient, family, old records Exam Limitations: no limitations History of Present Illness: 81 yr old WF w mult med problems including long standing DM, HTN, cirrhosis uncertain etiology complicated by portal HTN/splenomegally/ascites, spinal stenosis w chronic back pain, urinary incontinence, & CKD admit yesterday w rising BUN/Cr. Known severe, stage 4, CKD w baseline Cr ~ 2 last fall in setting of ? previous diabetic retinoipathy but w/o known proteinuria. On outpt Lasix & spironolactone; also taking naproxen bid --> BUN/Cr rise 74/3.5. Poor po intake @ home but no vomiting or diarrhea. No recent IV contrast. No ACEI or ARBs. No overt hypotension but BP lower than previous w systolic 110s. Denies overt urinary retention sx. No collagen vasc sx. Of note, mother ESRD in her 20s unknown cause but no other FHx renal dx. Denies stones or UTIs. Allergies/Medications Allergies: Coded Allergies: Opioids - Morphine Analogues (ITCH, GI UPSET 08/03/16) Opioids-Meperidine and Related (ITCH, GI UPSET 08/03/16) Opioids-Methadone and Related (ITCH, GI UPSET 08/03/16) codeine (GI UPSET 08/03/16) morphine (ITCHING, GI UPSET 08/03/16) Home Med List: Allopurinol (Zyloprim) 100 MG TABLET 1 TAB PO DAILY GOUT (Reported) Amlodipine Besylate 10 MG TABLET 1 TAB PO DAILY BP (Reported) Carbidopa/Levodopa (Sinemet 25-100 MG Tablet) 25 MG-100 MG TABLET 1 TAB PO TID GAIT/TREMOR INSTABILITY (Reported) Cyanocobalamin (Vitamin B-12) 1,000 MCG TABLET 1 TAB PO DAILY SUPPLEMENT ( Reported) Duloxetine HCl (Cymbalta) 60 MG CAPSULE. 1 CAP PO Wednesday MENTAL HEALTH (Reported) Duloxetine Hydrochloride (Cymbalta) 30 MG CAPSULE. 1 CAP PO [facility] (Reported) Furosemide 20 MG TABLET 1 TAB PO DAILY DIURETIC (Reported) Insulin Aspart, Recombinant (Novolog Flexpen) 100 UNIT/ML INSULN.PEN 0 SQ TIDAC/HS DIABETES Please see instructions below and follow before meal sliding scale and bedtime sliding scale as prescribed. Insulin Detemir (Levemir) 100 UNIT/ML VIAL 20 UNITS SC BID DM (Reported) Levothyroxine Sodium (Synthroid) 200 MCG TABLET 1 TAB PO DAILY AC HYPOTHYROIDISM Lovastatin 20 MG TABLET 1 TAB PO DAILY CHOLESTEROL (Reported) Magnesium Oxide (Magnesium) 500 MG CAPSULE 1 CAP PO DAILY SUPPLEMENT ( Reported) Mirabegron (Myrbetriq) 50 MG TAB.ER.24H 1 TAB PO DAILY BLADDER (Reported) Nadolol 20 MG TABLET 1 TAB PO DAILY BP (Reported) Omeprazole 40 MG CAPSULE.DR 1 CAP PO DAILY GI (Reported) Spironolactone 25 MG TABLET 1 TAB PO DAILY DIURETIC (Reported) Current Medications: Current Medications Sig/Jennifer Start time Last Medication Dose Route Stop Time Status Admin Allopurinol 100 MG DAILY 07/03 1000 AC 07/03 PO 0900 Amlodipine Besylate 10 MG DAILY 07/03 1000 AC 07/03 PO 0900 Atorvastatin Calcium 10 MG 1700 07/03 1700 AC PO Carbidopa/Levodopa 1 TAB TID 07/03 1000 AC 07/03 PO 0900 Cyanocobalamin 1,000 MCG DAILY 07/03 1000 AC 07/03 PO 0900 Duloxetine HCl 60 MG 07/05 1000 AC PO Fentanyl Citrate 12 MCG Q72H 07/03 0645 AC 07/03 TOP 0859 Heparin Sodium 5,000 UNIT Q8 07/03 0600 AC 07/03 (Porcine) SC 0604 Insulin Aspart 0 TIDAC 07/03 0800 AC SC Insulin Detemir 10 UNITS BID 07/03 1000 AC 07/03 SC 0858 Levothyroxine Sodium 0.2 MG DAILY AC 07/03 0700 AC 07/03 PO 0602 Lidocaine 1 PAT DAILY 07/03 1000 AC 07/03 EXT 0902 Nadolol 20 MG DAILY 07/03 1000 AC 07/03 PO 0900 Omeprazole 40 MG DAILY AC 07/03 0700 AC 07/03 PO 0603 Review of Systems Review of Systems Constitutional: Denies: malaise. EENTM: Denies: no symptoms. Cardiovascular: Denies: no symptoms. Respiratory: Denies: no symptoms. GI: Reports: distention. Genitourinary: Reports: see HPI. Musculoskeletal: Reports: back pain. Skin: Reports: no symptoms. Neurological/Psychological: Reports: no symptoms. Hematologic/Endocrine: Reports: no symptoms. Immunologic/Allergic: Reports: no symptoms. 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 MOTHER (Mother at the age of 26 years, unknown cause). Psychosocial History Who Do You Live With? spouse Services at Home: None Primary Language: Nepalese Smoking Status: Never Smoked ETOH Use: denies use Illicit Drug Use: denies illicit drug use Living Will? no Functional Ability ADLs Independent: dressing, eating, toileting, bathing. Ambulation: independent IADLs Independent: shopping, housework, finances, food prep, telephone, medication admin. Needs Assist: transportation. Exam & Diagnostic Data Vital Signs and I&O Vital Signs Date Time Temp Pulse Resp B/P B/P Pulse O2 O2 Flow FiO2 Mean Ox Delivery Rate 07/03 0900 110/62 / 0900 110/62 07/03 0744 98.0 61 20 116/60 93 Room Air 07/03 0033 97.9 53 20 110/62 95 Room Air 07/02 2348 98.0 66 16 98 07/02 2101 97.5 61 18 107/59 98 Room Air 07/02 1727 97.2 61 18 127/85 96 Room Air Room Air Intake & Output 07/03 1600 07/03 0400 07/02 1600 07/02 0400 07/01 1600 07/01 0400 Intake Total 250 0 Output Total 100 Balance 150 0 Intake, IV 10 Intake, Oral 240 0 Number 1 Bowel Movements Output, Urine 100 Patient 230 lb Weight Weight Standing Scale Measurement Method Physical Exam General Appearance: well developed/nourished, no apparent distress, alert, awake Head: atraumatic, normal appearance Eyes: Bilateral: normal appearance. Ears, Nose, Throat: normal ENT inspection Neck: normal inspection Respiratory: normal breath sounds, no respiratory distress, quiet respiration, lungs clear Cardiovascular: regular rate/rhythm, friction rub (none) Gastrointestinal: soft, non-tender, no organomegaly, distention Extremities: no edema Neurologic/Psych: no motor/sensory deficits, awake, alert, oriented x 3, normal mood/affect Skin: intact, normal color, warm/dry Lymphatic: no anterior cervical chanel, no axillary adenopathy Results Pertinent Lab Results: Laboratory Tests 07/03 07/03 07/03 0620 0620 0252 Coagulation PT (9.4 - 12.5 SEC) 15.1 H INR (0.90 - 1.19) 1.44 H Urines Urinalysis LIGHT H Urine Color (YEL,AMB,STR) YEL Urine Clarity (CLEAR) HAZY H Urine pH (5.0 - 8.0) 6.0 Ur Specific [place] (1.001 - 1.035) 1.015 Urine Protein (NEG,<30 MG/DL) NEG Urine Ketones (NEG) NEG Urine Nitrite (NEG) POS H Urine Bilirubin (NEG) NEG Urine Urobilinogen (0.1 - 1.0 EU/dl) 0.2 Ur Leukocyte Esterase (NEG) NEG Ur Microscopic SEDIMENT EXAMINED Urine WBC (0 - 2 /HPF) 5-10 H Ur Epithelial Cells (NONE,FEW) FEW Urine Bacteria (NEG/NONE) MANY H Hyaline Casts (0/LPF) RARE H Urine Hemoglobin (NEG) NEG Urine Osmolality (300 - 1000 MOSM/KG) 383 Ur Random Creatinine (mg/dL) 49.3 Ur Random Sodium (30 - 90 mmol/L) 119 H Ur Random Potassium (mmol/L) 22.4 Fraction Sodium Excret (<1% %) 5.9 H Urine Glucose (N MG/DL) NEG 07/02 07/02 1740 1737 Chemistry Sodium (137 - 145 mmol/L) 143 Potassium (3.5 - 5.1 mmol/L) 4.8 Chloride (98 - 107 mmol/L) 98 Carbon Dioxide (22 - 30 mmol/L) 27 Anion Gap (5 - 16) 18 H BUN (7 - 17 mg/dL) 74 H Creatinine (0.5 - 1.0 mg/dL) 3.5 H Estimated GFR (>60 ml/min) 13 L BUN/Creatinine Ratio (7 - 25 %) 21.1 Glucose (65 - 99 mg/dL) 217 H Calcium (8.4 - 10.2 mg/dL) 10.7 H Total Bilirubin (0.2 - 1.3 mg/dL) 0.9 AST (14 - 36 U/L) 25 ALT (9 - 52 U/L) 22 Alkaline Phosphatase (<127 U/L) 155 H Troponin I (< 0.11 ng/ml) 0.02 [id number] Pept (<125 pg/mL) 2850 H Cancelled Total Protein (6.3 - 8.2 g/dL) 7.0 Albumin (3.5 - 5.0 g/dL) 4.0 Globulin (1.9 - 4.2 gm/dL) 3.0 Albumin/Globulin Ratio (1.1 - 2.2 %) 1.3 Hematology CBC w Diff NO MAN DIFF REQ WBC (4.8 - 10.8 /CUMM) 5.3 RBC (4.20 - 5.40 /CUMM) 2.56 L Hgb (12.0 - 16.0 G/DL) 8.2 L Hct (37 - 47 %) 25.0 L MCV (81.0 - 99.0 FL) 97.9 MCH (27.0 - 31.0 PG) 32.2 H MCHC (33.0 - 37.0 G/DL) 32.9 L RDW (11.5 - 14.5 %) 18.4 H Plt Count (130 - 400 /CUMM) 104 L MPV (7.4 - 10.4 FL) 10.5 H Gran % (42.2 - 75.2 %) 72.6 Lymphocytes % (20.5 - 51.1 %) 14.1 L Monocytes % (1.7 - 9.3 %) 9.5 H Eosinophils % (0 - 5 %) 3.4 Basophils % (0.0 - 2.0 %) 0.4 Absolute Granulocytes (1.4 - 6.5 /CUMM) 3.8 Absolute Lymphocytes (1.2 - 3.4 /CUMM) 0.7 L Absolute Monocytes (0.10 - 0.60 /CUMM) 0.5 Absolute Eosinophils (0.0 - 0.7 /CUMM) 0.2 Absolute Basophils (0.0 - 0.2 /CUMM) 0 Imaging/Other Studies: Chest radiograph 05/14/2017 TECHNIQUE: Portable frontal view of the chest was obtained. FINDINGS: Moderate scattered aortic calcific atherosclerosis is noted. The cardiac silhouette is normal in size. No effusions or pneumothoraces are noted. A grossly normal pattern of pulmonary vasculature is present. No pulmonary consolidation is visualized. IMPRESSION: 1. No acute abnormalities. 2. Lungs clear. No evidence of pulmonary edema. 3. Moderate aortic calcific atherosclerosis. Assessment/Plan Assessment/Recommendations Assessment: 1. JOHN: suspect prerenal due to NSAIDs in face of diuresis of borderline BP. Can 't exclude ATN due to same. Needs obstruction, including urinary retention excluded. Would screeen for paraprotein but doubt. Hepatorenal unlikely w hi FENa. U/a not suggestive of GN or IN. Favor trial volume expansion as hold all NSAIDs & diuretics; since serum Alb hi would use IV NS. 2. CKD: severe, stage 4, w baseline Cr ~ 2 last fall; ? due to DM & HTN --> needs eval. Recommendations: 1. IV NS 100 ml/hr 2. Bladder post void Doppler - if 300 ml or more --> [place] 3. Renal US 4. Urine prot/Cr ratio 5. SIEP 6. Serial chemistries 7. D/c amlodipine --> allow systolic to rise 130 -140
--- NOTE | 2017-07-03 11:50 | Cons- Gastroenterology ---
General Information and HPI Consulting Request Date of Consult: 07/03/17 Requested By: Elvis Taylor MD Reason for Consult: Renal insufficiency in a patient with a history of cirrhosis, anemia, history or rectal bleeding Source of Information: patient, old records Exam Limitations: poor historian History of Present Illness: Ms. Luna is an 81 year old female with multiple medical problems including SORIA /cirrhosis who was sent in to yesterday by her PCP for worsening renal function noted on routine lab work. She began noticing abdominal distention and lower extremity swelling a few weeks ago for which she went to her PCP who started her on lasix and aldactone. She notes that this helped with the swelling and abdominal distention, but when she had blood work by her PCP yesterday he noted a worsening of her creatinine to 3.5 from 1.7 prior to starting the diuretics for which she was sent in to the hospital for evaluation and management. She complains of some nausea and intermittent loose stool, but she is otherwise without any significant GI complaints. She also notes that the loose stool she is having has not been that problematic for her as it has been in the past. She denies any rectal bleeding or melena. She was admitted to the medical service overnight and had her diuretics held, but IVF were not given out of concern for volume overload. She has been afebrile and hemodynamically stable since admission. Allergies/Medications Allergies: Coded Allergies: Opioids - Morphine Analogues (ITCH, GI UPSET 08/03/16) Opioids-Meperidine and Related (ITCH, GI UPSET 08/03/16) Opioids-Methadone and Related (ITCH, GI UPSET 08/03/16) codeine (GI UPSET 08/03/16) morphine (ITCHING, GI UPSET 08/03/16) Home Med List: Allopurinol (Zyloprim) 100 MG TABLET 1 TAB PO DAILY GOUT (Reported) Amlodipine Besylate 10 MG TABLET 1 TAB PO DAILY BP (Reported) Carbidopa/Levodopa (Sinemet 25-100 MG Tablet) 25 MG-100 MG TABLET 1 TAB PO TID GAIT/TREMOR INSTABILITY (Reported) Cyanocobalamin (Vitamin B-12) 1,000 MCG TABLET 1 TAB PO DAILY SUPPLEMENT ( Reported) Duloxetine HCl (Cymbalta) 60 MG CAPSULE.DR 1 CAP PO Wednesday MENTAL HEALTH (Reported) Duloxetine Hydrochloride (Cymbalta) 30 MG CAPSULE. 1 CAP PO [facility] (Reported) Furosemide 20 MG TABLET 1 TAB PO DAILY DIURETIC (Reported) Insulin Aspart, Recombinant (Novolog Flexpen) 100 UNIT/ML INSULN.PEN 0 SQ TIDAC/HS DIABETES Please see instructions below and follow before meal sliding scale and bedtime sliding scale as prescribed. Insulin Detemir (Levemir) 100 UNIT/ML VIAL 20 UNITS SC BID DM (Reported) Levothyroxine Sodium (Synthroid) 200 MCG TABLET 1 TAB PO DAILY AC HYPOTHYROIDISM Lovastatin 20 MG TABLET 1 TAB PO DAILY CHOLESTEROL (Reported) Magnesium Oxide (Magnesium) 500 MG CAPSULE 1 CAP PO DAILY SUPPLEMENT ( Reported) Mirabegron (Myrbetriq) 50 MG TAB.ER.24H 1 TAB PO DAILY BLADDER (Reported) Nadolol 20 MG TABLET 1 TAB PO DAILY BP (Reported) Omeprazole 40 MG CAPSULE. 1 CAP PO DAILY GI (Reported) Spironolactone 25 MG TABLET 1 TAB PO DAILY DIURETIC (Reported) Current Medications: Current Medications Sig/Jennifer Start time Last Medication Dose Route Stop Time Status Admin Allopurinol 100 MG DAILY 07/03 1000 AC 07/03 PO 0900 Amlodipine Besylate 10 MG DAILY 07/03 1000 AC 07/03 PO 0900 Atorvastatin Calcium 10 MG 1700 07/03 1700 AC PO Carbidopa/Levodopa 1 TAB TID 07/03 1000 AC 07/03 PO 0900 Cyanocobalamin 1,000 MCG DAILY 07/03 1000 AC 07/03 PO 0900 Duloxetine HCl 60 MG 07/05 1000 AC PO Fentanyl Citrate 12 MCG Q72H 07/03 0645 AC 07/03 TOP 0859 Heparin Sodium 5,000 UNIT Q8 07/03 0600 AC 07/03 (Porcine) SC 0604 Insulin Aspart 0 TIDAC 07/03 0800 AC SC Insulin Detemir 10 UNITS BID 07/03 1000 AC 07/03 SC 0858 Levothyroxine Sodium 0.2 MG DAILY AC 07/03 0700 AC 07/03 PO 0602 Lidocaine 1 PAT DAILY 07/03 1000 AC 07/03 EXT 0902 Nadolol 20 MG DAILY 07/03 1000 AC 07/03 PO 0900 Omeprazole 40 MG DAILY AC 07/03 0700 AC 07/03 PO 0603 Past History Travel History Traveled to [place] past 21 day No Medical History Blood Transfusion Hx: No Neurological: dizziness EENT: NONE Cardiovascular: hypertension, hyperlipidemia Respiratory: NONE Gastrointestinal: GERD, portal hypertension, gastropathy varices Hepatic: cirrhosis Renal: urinary incontinence Musculoskeletal: gout, restless leg syndrome Psychiatric: depression Endocrine: diabetes, hypothyroidism Blood Disorders: thrombocytopenia Cancer(s): NONE 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 MOTHER (Mother at the age of 26 years, unknown cause). Psychosocial History Who Do You Live With? spouse Services at Home: None Primary Language: Armenian Smoking Status: Never Smoked ETOH Use: denies use Illicit Drug Use: denies illicit drug use Living Will? no Functional Ability ADLs Independent: dressing, eating, toileting, bathing. Ambulation: independent IADLs Independent: shopping, housework, finances, food prep, telephone, medication admin. Needs Assist: transportation. Review of Systems Review of Systems Constitutional: Reports: malaise, weakness. Denies: chills, diaphoresis, fever. EENTM: Denies: no symptoms. Cardiovascular: Reports: edema, peripheral edema. Denies: chest pain, orthopena, palpitations. Respiratory: Reports: short of breath. Denies: cough, hemoptysis, orthopnea. GI: Reports: see HPI. Genitourinary: Denies: no symptoms. Musculoskeletal: Reports: joint pain, muscle pain. Denies: joint swelling, muscle stiffness, neck pain. Skin: Denies: no symptoms. Neurological/Psychological: Denies: no symptoms. Hematologic/Endocrine: Reports: bleeding. Immunologic/Allergic: Denies: no symptoms. All Other Systems: Reviewed and Negative Exam & Diagnostic Data Vital Signs and I&O Vital Signs Date Time Temp Pulse Resp B/P B/P Pulse O2 O2 Flow FiO2 Mean Ox Delivery Rate 07/03 0900 110/62 02/03 0900 110/62 / 0744 98.0 61 20 116/60 93 Room Air / 0033 97.9 53 20 110/62 95 Room Air / 2348 98.0 66 16 98 07/02 2101 97.5 61 18 107/59 98 Room Air 07/02 1727 97.2 61 18 127/85 96 Room Air Room Air Intake & Output 07/03 0400 07/02 04007/01 0400 Intake Total 250 0 Output Total 100 Balance 150 0 Intake, IV 10 Intake, Oral 240 0 Number 1 Bowel Movements Output, Urine 100 Patient 230 lb Weight Weight Standing Scale Measurement Method Physical Exam General Appearance: well developed/nourished, no apparent distress, alert, awake , comfortable Head: atraumatic, normal appearance Eyes: Bilateral: normal appearance. Ears, Nose, Throat: normal pharynx, normal ENT inspection, hearing grossly normal Neck: normal inspection, supple, full range of motion Respiratory: normal breath sounds, chest non-tender, no respiratory distress Cardiovascular: regular rate/rhythm Gastrointestinal: normal bowel sounds, soft, non-tender, distention Extremities: normal inspection, normal capillary refill, pedal edema Neurologic/Psych: no motor/sensory deficits, awake, alert, oriented x 3 Results Pertinent Lab Results: Laboratory Tests 07/03 07/03 07/03 0620 0620 0252 Coagulation PT (9.4 - 12.5 SEC) 15.1 H INR (0.90 - 1.19) 1.44 H Urines Urinalysis LIGHT H Urine Color (YEL,AMB,STR) YEL Urine Clarity (CLEAR) HAZY H Urine pH (5.0 - 8.0) 6.0 Ur Specific [place] (1.001 - 1.035) 1.015 Urine Protein (NEG,<30 MG/DL) NEG Urine Ketones (NEG) NEG Urine Nitrite (NEG) POS H Urine Bilirubin (NEG) NEG Urine Urobilinogen (0.1 - 1.0 EU/dl) 0.2 Ur Leukocyte Esterase (NEG) NEG Ur Microscopic SEDIMENT EXAMINED Urine WBC (0 - 2 /HPF) 5-10 H Ur Epithelial Cells (NONE,FEW) FEW Urine Bacteria (NEG/NONE) MANY H Hyaline Casts (0/LPF) RARE H Urine Hemoglobin (NEG) NEG Urine Osmolality (300 - 1000 MOSM/KG) 383 Ur Random Creatinine (mg/dL) 49.3 Ur Random Sodium (30 - 90 mmol/L) 119 H Ur Random Potassium (mmol/L) 22.4 Fraction Sodium Excret (<1% %) 5.9 H Urine Glucose (N MG/DL) NEG 07/02 07/02 1740 1737 Chemistry Sodium (137 - 145 mmol/L) 143 Potassium (3.5 - 5.1 mmol/L) 4.8 Chloride (98 - 107 mmol/L) 98 Carbon Dioxide (22 - 30 mmol/L) 27 Anion Gap (5 - 16) 18 H BUN (7 - 17 mg/dL) 74 H Creatinine (0.5 - 1.0 mg/dL) 3.5 H Estimated GFR (>60 ml/min) 13 L BUN/Creatinine Ratio (7 - 25 %) 21.1 Glucose (65 - 99 mg/dL) 217 H Calcium (8.4 - 10.2 mg/dL) 10.7 H Total Bilirubin (0.2 - 1.3 mg/dL) 0.9 AST (14 - 36 U/L) 25 ALT (9 - 52 U/L) 22 Alkaline Phosphatase (<127 U/L) 155 H Troponin I (< 0.11 ng/ml) 0.02 [id number] Pept (<125 pg/mL) 2850 H Cancelled Total Protein (6.3 - 8.2 g/dL) 7.0 Albumin (3.5 - 5.0 g/dL) 4.0 Globulin (1.9 - 4.2 gm/dL) 3.0 Albumin/Globulin Ratio (1.1 - 2.2 %) 1.3 Hematology CBC w Diff NO MAN DIFF REQ WBC (4.8 - 10.8 /CUMM) 5.3 RBC (4.20 - 5.40 /CUMM) 2.56 L Hgb (12.0 - 16.0 G/DL) 8.2 L Hct (37 - 47 %) 25.0 L MCV (81.0 - 99.0 FL) 97.9 MCH (27.0 - 31.0 PG) 32.2 H MCHC (33.0 - 37.0 G/DL) 32.9 L RDW (11.5 - 14.5 %) 18.4 H Plt Count (130 - 400 /CUMM) 104 L MPV (7.4 - 10.4 FL) 10.5 H Gran % (42.2 - 75.2 %) 72.6 Lymphocytes % (20.5 - 51.1 %) 14.1 L Monocytes % (1.7 - 9.3 %) 9.5 H Eosinophils % (0 - 5 %) 3.4 Basophils % (0.0 - 2.0 %) 0.4 Absolute Granulocytes (1.4 - 6.5 /CUMM) 3.8 Absolute Lymphocytes (1.2 - 3.4 /CUMM) 0.7 L Absolute Monocytes (0.10 - 0.60 /CUMM) 0.5 Absolute Eosinophils (0.0 - 0.7 /CUMM) 0.2 Absolute Basophils (0.0 - 0.2 /CUMM) 0 Imaging/Other Studies: Endoscopy Procedure Medical History: unchanged (see tara ov note 02/04/17) Mental Status: alert/oriented Heart/Lung Eval Prior to Sedation: within normal limits Candidate for Sedation? Yes Procedure Date: 02/10/17 Procedure Type: EGD Teacher Adult Education: JACKLYN ARTEAGA MD ASA Classification: III Indications: Reports of melena, cirrhosis, with a history of varices. Instrument: diagnostic gastroscope Meds Received: MAC Patient's Tolerance: good Complications: none Extent Reached: second part of duodenum Procedure: After getting written informed consent the patient was placed in the left lateral decubitus position with pulse oximetry, cardiac monitoring, and supplemental oxygen given. A bite block was inserted and IV sedation was given until the desired effect was achieved. A high definition upper Olympus endoscope was then inserted into the mouth and advanced to the second portion of the duodenum with little difficulty. Retroflexed views and photodocumentation was obtained. Findings: Esophagus: The upper esophageal mucosa was grossly normal appearance to a 25 cm and extending to the Z line at 40 cm were several columns of distinct varices without stigmata of recent hemorrhage which did not completely flattened with air insufflation. The Z line was normal in appearance. Stomach: Within the fundus was a snake skin appearance to send in appearance with portal hypertensive gastropathy with friability in the cardia, but no active bleeding, gastric varices or ulcerations were appreciated. There were several small polyps 2-4 mm in size consistent in appearance of fundic gland polyps and which were left in place. Tri-Flex views did not reveal significant hiatal hernia or gastric varices. Duodenum: The duodenal bulb, sweep, and folds were grossly normal in appearance and there was bile appreciated throughout to the second portion of the duodenum. Impression: 1. Grade 1-2 esophageal varices without stigmata of recent hemorrhage. 2. Portal hypertensive gastropathy with friability, but no active bleeding was appreciated. 3. Fundic gland polyps. Assessment/Plan Assessment/Recommendations: Assessment: Ms. Luna is an 81 year old female with a history of SORIA/cirrhosis who presented to yesterday with worsening renal function which is likely secondary to pre-renal azotemia from the diuretics she was started on a few weeks ago for anasarca. Considering her history of portal hypertension hepatorenal syndrome is possible, but her spot urine sodium is not consistent with this and pre-renal azotemia still needs to be ruled out by a fluid challenge which she has yet to receive. Of note, she has had a 2 gm hgb drop over the past month and a half which I suspect is secondary to occult blood losses from the portal hypertensive gastropathy she was noted to have on an endoscopy a few months ago and other then starting oral iron, which she apparently wasnt on at home, and possibly tranfusing her no other intervnetions are necessary for this at this time. Recommendatons: 1. Fluid challenge with albumin 25 gm iv q8h x 48 hours 2. Follow daily renal function and lytes 3. Consideration should be given for a renal consult 4. Continue to hold diuretics 5. Continue nadolol as bp tolerates 6. Start oral iron supplementation 7. Notify GI for signs of overt GI bleeding 8. Follow up US and if there is significant ascites would do a diagnostic tap to rule out SBP 9. If kidney function doen't improve with volume repletion would then give consideration to treating with midodrine and octroetide, but I don't feel that is necessary now I will continue to follow this patient and make further recommendations based on her clinical course and results of repeat blood work and imaging. Problem List: 1. Anemia 2. GI bleed 3. Thrombocytopenia 4. Acute kidney failure 5. Hepatosplenomegaly 6. Portal hypertension Copies To: Brandy PEREZ,Anoop Moore Consult Acknowledgment - Thank you for your consult request.
[2017-07-03 13:03] LABS: ABSOLUTE BASOPHIL COUNT 0 /CUMM (0.0-0.2); ABSOLUTE EOSINOPHIL COUNT 0.1 /CUMM (0.0-0.7); ABSOLUTE GRANULOCYTE CT 2.3 /CUMM (1.4-6.5); ABSOLUTE LYMPH COUNT 0.5 /CUMM (1.2-3.4); ABSOLUTE MONOCYTE COUNT 0.3 /CUMM (0.10-0.60); BASOPHIL % 0.4 % (0.0-2.0); GRANULOCYTE % 71.3 % (42.2-75.2); MEAN CORPUSCULAR HGB 31.7 PG (27.0-31.0); MEAN CORPUSCULAR HGB CONC 32.4 G/DL (33.0-37.0); MEAN CORPUSCULAR VOLUME 97.9 FL (81.0-99.0); MEAN PLATELET VOLUME 9.3 FL (7.4-10.4); RBC DISTRIBUTION WIDTH 18.6 % (11.5-14.5); RED BLOOD CELL CT 2.02 /CUMM (4.20-5.40); WHITE BLOOD CELL COUNT 3.2 /CUMM (4.8-10.8)
--- NOTE | 2017-07-03 13:13 | Cons- Endocrinology ---
General Information and HPI Consulting Request Date of Consult: 07/03/17 Requested By: medical team Reason for Consult: Uncontrolled diabetes type 2 Source of Information: patient, old records Exam Limitations: no limitations History of Present Illness: This 81-year-old woman has a known history of type 2 diabetes mellitus. She also has chronic renal disease stage III-IV. Apparently she began to notice swelling of her legs and abdomen. She saw her primary care doctor who added Lasix and Aldactone to her regimen. However her creatinine began to rise to 3.5 and she was sent to the emergency room. The patient states her appetite is not good. She sees Dr. luciano for management of her blood sugars. She is on Levemir at home 20 units twice a day as well as sliding scale NovoLog before meals. Here her Levemir has been decreased to 10 units twice a day. Her blood sugar this morning was 91 and before lunch was 156. Allergies/Medications Allergies: Coded Allergies: Opioids - Morphine Analogues (ITCH, GI UPSET 08/03/16) Opioids-Meperidine and Related (ITCH, GI UPSET 08/03/16) Opioids-Methadone and Related (ITCH, GI UPSET 08/03/16) codeine (GI UPSET 08/03/16) morphine (ITCHING, GI UPSET 08/03/16) Home Med List: Allopurinol (Zyloprim) 100 MG TABLET 1 TAB PO DAILY GOUT (Reported) Amlodipine Besylate 10 MG TABLET 1 TAB PO DAILY BP (Reported) Carbidopa/Levodopa (Sinemet 25-100 MG Tablet) 25 MG-100 MG TABLET 1 TAB PO TID GAIT/TREMOR INSTABILITY (Reported) Cyanocobalamin (Vitamin B-12) 1,000 MCG TABLET 1 TAB PO DAILY SUPPLEMENT ( Reported) Duloxetine HCl (Cymbalta) 60 MG CAPSULE. 1 CAP PO Wednesday MENTAL HEALTH (Reported) Duloxetine Hydrochloride (Cymbalta) 30 MG CAPSULE. 1 CAP PO [facility] (Reported) Furosemide 20 MG TABLET 1 TAB PO DAILY DIURETIC (Reported) Insulin Aspart, Recombinant (Novolog Flexpen) 100 UNIT/ML INSULN.PEN 0 SQ TIDAC/HS DIABETES Please see instructions below and follow before meal sliding scale and bedtime sliding scale as prescribed. Insulin Detemir (Levemir) 100 UNIT/ML VIAL 20 UNITS SC BID DM (Reported) Levothyroxine Sodium (Synthroid) 200 MCG TABLET 1 TAB PO DAILY AC HYPOTHYROIDISM Lovastatin 20 MG TABLET 1 TAB PO DAILY CHOLESTEROL (Reported) Magnesium Oxide (Magnesium) 500 MG CAPSULE 1 CAP PO DAILY SUPPLEMENT ( Reported) Mirabegron (Myrbetriq) 50 MG TAB.ER.24H 1 TAB PO DAILY BLADDER (Reported) Nadolol 20 MG TABLET 1 TAB PO DAILY BP (Reported) Omeprazole 40 MG CAPSULE.DR 1 CAP PO DAILY GI (Reported) Spironolactone 25 MG TABLET 1 TAB PO DAILY DIURETIC (Reported) Current Medications: Current Medications Sig/Jennifer Start time Last Medication Dose Route Stop Time Status Admin Allopurinol 100 MG DAILY 07/03 1000 AC 07/03 PO 0900 Amlodipine Besylate 10 MG DAILY 07/03 1000 AC 07/03 PO 0900 Atorvastatin Calcium 10 MG 1700 07/03 1700 AC PO Carbidopa/Levodopa 1 TAB TID 07/03 1000 AC 07/03 PO 0900 Cyanocobalamin 1,000 MCG DAILY 07/03 1000 AC 07/03 PO 0900 Duloxetine HCl 60 MG 07/05 1000 AC PO Fentanyl Citrate 12 MCG Q72H 07/03 0645 AC 07/03 TOP 0859 Heparin Sodium 5,000 UNIT Q8 07/03 0600 AC 07/03 (Porcine) SC 1302 Insulin Aspart 0 TIDAC 07/03 0800 AC 07/03 SC 1302 Insulin Detemir 10 UNITS BID 07/03 1000 AC 07/03 SC 0858 Levothyroxine Sodium 0.2 MG DAILY AC 07/03 0700 AC 07/03 PO 0602 Lidocaine 1 PAT DAILY 07/03 1000 AC 07/03 EXT 0902 Nadolol 20 MG DAILY 07/03 1000 AC 07/03 PO 0900 Omeprazole 40 MG DAILY AC 07/03 0700 AC 07/03 PO 0603 Review of Systems Review of Systems Constitutional: Denies: chills, fever. Cardiovascular: Denies: chest pain. Respiratory: Denies: short of breath. GI: Reports: nausea. Genitourinary: Denies: dysuria. 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 MOTHER (Mother at the age of 26 years, unknown cause). Psychosocial History Who Do You Live With? spouse Services at Home: None Primary Language: [place] Smoking Status: Never Smoked ETOH Use: denies use Illicit Drug Use: denies illicit drug use Living Will? no Functional Ability ADLs Independent: dressing, eating, toileting, bathing. Ambulation: independent IADLs Independent: shopping, housework, finances, food prep, telephone, medication admin. Needs Assist: transportation. Exam & Diagnostic Data Last 24 Hrs of Vital Signs/I&O Vital Signs Date Time Temp Pulse Resp B/P B/P Pulse O2 O2 Flow FiO2 Mean Ox Delivery Rate 07/03 899 11007/03 0907/03 0744 98.0 61 20 116/60 93 Room Air 07/03 0033 97.9 53 20 110/62 95 Room Air 07/02 2348 98.0 66 16 98 07/02 2101 97.5 61 18 107/59 98 Room Air 07/02 1727 97.2 61 18 127/85 96 Room Air Room Air Intake & Output 07/03 1600 07/03 0800 07/03 0000 Intake Total 250 0 Output Total 100 Balance -100 250 0 Intake, IV 10 Intake, Oral 240 0 Number 1 Bowel Movements Output, Urine 100 Patient 230 lb Weight Weight Standing Scale Measurement Method Vital Signs Date Time Temp Pulse Resp B/P B/P Pulse O2 O2 Flow FiO2 Mean Ox Delivery Rate 07/03 899 110/62 07/03 0900 11007/03 0744 98.0 61 20 116/60 93 Room Air / 0033 97.9 53 20 110/62 95 Room Air 07/02 2348 98.0 66 16 98 07/02 2101 97.5 61 18 107/59 98 Room Air 07/02 1727 97.2 61 18 127/85 96 Room Air Room Air Intake & Output 07/03 1600 07/03 0800 02/ 0000 Intake Total 250 0 Output Total 100 Balance -100 250 0 Intake, IV 10 Intake, Oral 240 0 Number 1 Bowel Movements Output, Urine 100 Patient 230 lb Weight Weight Standing Scale Measurement Method Physical Exam General Appearance: alert, awake Head: normal appearance Neck: normal inspection Cardiovascular: regular rate/rhythm Gastrointestinal: normal bowel sounds, distention Extremities: swelling Labs/Unruly Results: Laboratory Tests 07/03 07/03 07/03 1245 0620 0620 Chemistry Sodium Pending Potassium Pending Chloride Pending Carbon Dioxide Pending Anion Gap Pending BUN Pending Creatinine Pending BUN/Creatinine Ratio Pending Hematology CBC w Diff Pending WBC Pending RBC Pending Hgb Pending Hct Pending MCV Pending MCH Pending MCHC Pending RDW Pending Plt Count Pending MPV Pending Urines Urinalysis LIGHT H Urine Color (YEL,AMB,STR) YEL Urine Clarity (CLEAR) HAZY H Urine pH (5.0 - 8.0) 6.0 Ur Specific [place] (1.001 - 1.035) 1.015 Urine Protein (NEG,<30 MG/DL) NEG Urine Ketones (NEG) NEG Urine Nitrite (NEG) POS H Urine Bilirubin (NEG) NEG Urine Urobilinogen (0.1 - 1.0 EU/dl) 0.2 Ur Leukocyte Esterase (NEG) NEG Ur Microscopic SEDIMENT EXAMINED Urine WBC (0 - 2 /HPF) 5-10 H Ur Epithelial Cells (NONE,FEW) FEW Urine Bacteria (NEG/NONE) MANY H Hyaline Casts (0/LPF) RARE H Urine Hemoglobin (NEG) NEG Urine Osmolality (300 - 1000 MOSM/KG) 383 Ur Random Creatinine (mg/dL) 49.3 Ur Random Sodium (30 - 90 mmol/L) 119 H Ur Random Potassium (mmol/L) 22.4 Fraction Sodium Excret (<1% %) 5.9 H Urine Glucose (N MG/DL) NEG 07/03 07/02 07/02 0252 1740 1737 Chemistry Sodium (137 - 145 mmol/L) 143 Potassium (3.5 - 5.1 mmol/L) 4.8 Chloride (98 - 107 mmol/L) 98 Carbon Dioxide (22 - 30 mmol/L) 27 Anion Gap (5 - 16) 18 H BUN (7 - 17 mg/dL) 74 H Creatinine (0.5 - 1.0 mg/dL) 3.5 H Estimated GFR (>60 ml/min) 13 L BUN/Creatinine Ratio (7 - 25 %) 21.1 Glucose (65 - 99 mg/dL) 217 H Calcium (8.4 - 10.2 mg/dL) 10.7 H Total Bilirubin (0.2 - 1.3 mg/dL) 0.9 AST (14 - 36 U/L) 25 ALT (9 - 52 U/L) 22 Alkaline Phosphatase (<127 U/L) 155 H Troponin I (< 0.11 ng/ml) 0.02 [id number]-Vcqhzmxcmry Pept (<125 pg/mL) 2850 H Cancelled Total Protein (6.3 - 8.2 g/dL) 7.0 Albumin (3.5 - 5.0 g/dL) 4.0 Globulin (1.9 - 4.2 gm/dL) 3.0 Albumin/Globulin Ratio (1.1 - 2.2 %) 1.3 Coagulation PT (9.4 - 12.5 SEC) 15.1 H INR (0.90 - 1.19) 1.44 H Hematology CBC w Diff NO MAN DIFF REQ WBC (4.8 - 10.8 /CUMM) 5.3 RBC (4.20 - 5.40 /CUMM) 2.56 L Hgb (12.0 - 16.0 G/DL) 8.2 L Hct (37 - 47 %) 25.0 L MCV (81.0 - 99.0 FL) 97.9 MCH (27.0 - 31.0 PG) 32.2 H MCHC (33.0 - 37.0 G/DL) 32.9 L RDW (11.5 - 14.5 %) 18.4 H Plt Count (130 - 400 /CUMM) 104 L MPV (7.4 - 10.4 FL) 10.5 H Gran % (42.2 - 75.2 %) 72.6 Lymphocytes % (20.5 - 51.1 %) 14.1 L Monocytes % (1.7 - 9.3 %) 9.5 H Eosinophils % (0 - 5 %) 3.4 Basophils % (0.0 - 2.0 %) 0.4 Absolute Granulocytes (1.4 - 6.5 /CUMM) 3.8 Absolute Lymphocytes (1.2 - 3.4 /CUMM) 0.7 L Absolute Monocytes (0.10 - 0.60 /CUMM) 0.5 Absolute Eosinophils (0.0 - 0.7 /CUMM) 0.2 Absolute Basophils (0.0 - 0.2 /CUMM) 0 Assessment/Plan Assessment/Plan This 81-year-old woman with a history of diabetes and hypertension presents with acute kidney injury. Her main complaint was swelling of her abdomen and legs prior to admission. She has a previous history of chronic renal disease stage III-IV. In the hospital suggest reduce her Levemir to 6 units twice a day. Also we can reduce sliding scale NovoLog. Sliding scale NovoLog before meals should be 80-150 give 2 units NovoLog, 151- 200 give 3 units NovoLog, 201-250 give 4 units NovoLog, 251-300 give 5 units NovoLog, 301-350 give 6 units NovoLog, 351-400 give 7 units NovoLog. A separate sliding scale NovoLog should be written for bedtime. Sliding scale NovoLog at bedtime should be less than 250 give no insulin, 251-300 give 2 units NovoLog, 301-350 give 3 units NovoLog, 351-400 give 4 units NovoLog Consult Acknowledgment - Thank you for your consult request.
[2017-07-03 13:18] LABS: HEMATOCRIT 19.8 % (37-47); PLATELET COUNT 68 /CUMM (130-400)
[2017-07-03 13:48] VITALS: BP 112/58
[2017-07-03 14:24] LABS: ABSOLUTE BASOPHIL COUNT 0 /CUMM (0.0-0.2); ABSOLUTE EOSINOPHIL COUNT 0.1 /CUMM (0.0-0.7); ABSOLUTE GRANULOCYTE CT 2.7 /CUMM (1.4-6.5); ABSOLUTE LYMPH COUNT 0.7 /CUMM (1.2-3.4); ABSOLUTE MONOCYTE COUNT 0.3 /CUMM (0.10-0.60); BASOPHIL % 0.6 % (0.0-2.0); EOSINOPHIL % 3.2 % (0-5); GRANULOCYTE % 70.1 % (42.2-75.2); HEMATOCRIT 22.5 % (37-47); MEAN CORPUSCULAR HGB 30.8 PG (27.0-31.0); MEAN CORPUSCULAR HGB CONC 31.3 G/DL (33.0-37.0); MEAN CORPUSCULAR VOLUME 98.3 FL (81.0-99.0); MEAN PLATELET VOLUME 10.4 FL (7.4-10.4); PLATELET COUNT 77 /CUMM (130-400); RBC DISTRIBUTION WIDTH 18.6 % (11.5-14.5); RED BLOOD CELL CT 2.29 /CUMM (4.20-5.40); WHITE BLOOD CELL COUNT 3.9 /CUMM (4.8-10.8)
--- NOTE | 2017-07-03 14:25 | ULTRASOUND REPORT ---
EXAMINATION: US ABDOMEN COMPLETE CLINICAL INFORMATION: Distended abdomen. Patient has history of cirrhosis and presents with distended abdomen. COMPARISON: Ultrasound of the abdomen dated 05/14/2017. TECHNIQUE: Real-time imaging of the abdominal viscera. FINDINGS: PANCREAS: Obscured by overlying bowel gas. ABDOMINAL AORTA: The proximal segment is normal in caliber. INFERIOR VENA CAVA: Not seen. LIVER: The liver shows a nodular contour and coarsened echotexture, consistent with liver cirrhosis. No focal lesion or intrahepatic biliary duct dilatation. With color Doppler imaging, hepatopetal flow within the main portal vein is seen. GALLBLADDER: Surgically absent. COMMON BILE DUCT: Normal in caliber measuring 0.3 cm in diameter. RIGHT KIDNEY: Diffuse atrophy of the right kidney is seen with decreased thickness and increased echogenicity, consistent with medical renal disease. No hydronephrosis. No renal calculi or focal parenchymal lesions. The kidney measures 7.3 cm in maximum dimension. LEFT KIDNEY: Poorly visualized. In the upper pole of the left kidney, a 3.0 x 1.9 x 3.0 cm simple cyst is seen. No hydronephrosis. No renal calculi or suspicious focal parenchymal lesions. The kidney measures 10.6 cm in maximum dimension. SPLEEN: Enlarged. The spleen measures 15.1 cm in maximum dimension. FREE FLUID: Moderate volume fluid is seen surrounding the liver and small volume fluid is seen in the left upper quadrant. Volume of fluid appears larger than on the prior ultrasound from 05/14/2017. IMPRESSION: 1. Cirrhotic liver with findings consistent with portal venous hypertension as evidenced by splenomegaly and moderate volume abdominal ascites. Compared to 05/14/2017, volume of fluid appears larger. 2. Pancreas not seen. 3. Atrophic right kidney. Left kidney poorly seen. Upper pole left renal 3 cm cyst noted.
--- NOTE | 2017-07-03 14:58 | PN- Att Addend ---
Attending Addendum Attending Brief Note Patient seen and examined. Lying in bed not in acute distress. Denies nausea vomiting. Denies abdominal pain. Denies shortness of breath or palpitations at rest although she does report dyspnea with exertion. Denies cough. Patient is afebrile hemodynamically stable. Vital Signs Date Time Temp Pulse Resp B/P B/P Pulse O2 O2 Flow FiO2 Mean Ox Delivery Rate 07/03 1348 98.5 60 20 112/58 95 Room Air / 0900 110/62 02/03 0900 110/62 02/03 0744 98.0 61 20 116/60 93 Room Air / 0033 97.9 53 20 110/62 95 Room Air 07/02 2348 98.0 66 16 98 / 2101 97.5 61 18 107/59 98 Room Air 07/02 1727 97.2 61 18 127/85 96 Room Air Room Air General appearance: Well-developed, not in acute distress. Heart: S1-S2 regular no audible murmur. Lungs: Good entry bilaterally, clear to auscultation. Abdomen: Distended soft, nontender with normal bowel sounds. Extremities: Trace peripheral edema bilaterally. Neurologic: No gross focal neurologic deficits. Laboratory Tests 07/03/17 1412: CBC w Diff NO MAN DIFF REQ, RBC 2.29 L, MCV 98.3, MCH 30.8, MCHC 31.3 L, RDW 18.6 H, MPV 10.4, Gran % 70.1, Lymphocytes % 17.6 L, Monocytes % 8.5, Eosinophils % 3.2, Basophils % 0.6, Absolute Granulocytes 2.7, Absolute Lymphocytes 0.7 L, Absolute Monocytes 0.3, Absolute Eosinophils 0.1, Absolute Basophils 0 07/03/17 1245: Anion Gap 16, Estimated GFR 13 L, BUN/Creatinine Ratio 21.5, CBC w Diff NO MAN DIFF REQ, RBC 2.02 L, MCV 97.9, MCH 31.7 H, MCHC 32.4 L, RDW 18.6 H, MPV 9.3 , Gran % 71.3, Lymphocytes % 17.0 L, Monocytes % 8.3, Eosinophils % 3.0, Basophils % 0.4, Absolute Granulocytes 2.3, Absolute Lymphocytes 0.5 L, Absolute Monocytes 0.3, Absolute Eosinophils 0.1, Absolute Basophils 0 07/03/17 0620: Urinalysis LIGHT H, Urine Color YEL, Urine Clarity HAZY H, Urine pH 6.0, Ur Specific [place] 1.015, Urine Protein NEG, Urine Ketones NEG, Urine Nitrite POS H, Urine Bilirubin NEG, Urine Urobilinogen 0.2, Ur Leukocyte Esterase NEG, Ur Microscopic SEDIMENT EXAMINED, Urine WBC 5-10 H, Ur Epithelial Cells FEW, Urine Bacteria MANY H, Hyaline Casts RARE H, Urine Hemoglobin NEG, Urine Glucose NEG 07/03/17 0620: Urine Osmolality 383, Ur Random Creatinine 49.3, Ur Random Sodium 119 H, Ur Random Potassium 22.4, Fraction Sodium Excret 5.9 H 07/03/17 0252: PT 15.1 H, INR 1.44 H 07/02/17 1740: Anion Gap 18 H, Estimated GFR 13 L, BUN/Creatinine Ratio 21.1, Glucose 217 H, Calcium 10.7 H, Total Bilirubin 0.9, AST 25, ALT 22, Alkaline Phosphatase 155 H, Troponin I 0.02, Mvi-O-Ystbqmarwvc Pept 2850 H, Total Protein 7.0, Albumin 4.0, Globulin 3.0, Albumin/Globulin Ratio 1.3, CBC w Diff NO MAN DIFF REQ, RBC 2.56 L, MCV 97.9, MCH 32.2 H, MCHC 32.9 L, RDW 18.4 H, MPV 10.5 H, Gran % 72.6, Lymphocytes % 14.1 L, Monocytes % 9.5 H, Eosinophils % 3.4, Basophils % 0.4, Absolute Granulocytes 3.8, Absolute Lymphocytes 0.7 L, Absolute Monocytes 0.5, Absolute Eosinophils 0.2, Absolute Basophils 0 07/02/17 1737: Jxx-I-Cyjyndfyuty Pept Cancelled Problems: 1. Acute on chronic anemia. 2. Acute on chronic kidney disease. 3. History of coronary artery disease. 4. 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 Chronic thrombocytopenia 6. Insulin-dependent diabetes mellitus. Plan: -Patient continues to have an acute drop in her hemoglobin level. Transfuse to keep hemoglobin level greater than 8. Check stool guaiac. please notify the gastroenterology service. -Keep n.p.o. - Her dyspnea is likely related to her severe anemia. Follow-up her echocardiogram. -Follow-up abdominal ultrasound to evaluate the degree of her arthritis. Currently reports only mild discomfort. -Despite the initial decrease over his insulin dose she remained with blood glucose in the 90s. Endocrinology consultation appreciated. Her Levemir has been decreased further to 6 units twice a day. -Renal sonogram to further workup for acute on chronic kidney disease. Nephrology consultation appreciated.
[2017-07-03 22:28] VITALS: BP 108/60
[2017-07-03 22:57] LABS: ABSOLUTE BASOPHIL COUNT 0 /CUMM (0.0-0.2); ABSOLUTE EOSINOPHIL COUNT 0.1 /CUMM (0.0-0.7); ABSOLUTE GRANULOCYTE CT 1.8 /CUMM (1.4-6.5); ABSOLUTE LYMPH COUNT 0.7 /CUMM (1.2-3.4); ABSOLUTE MONOCYTE COUNT 0.3 /CUMM (0.10-0.60); BASOPHIL % 0.6 % (0.0-2.0); EOSINOPHIL % 2.9 % (0-5); HEMATOCRIT 22.2 % (37-47); MEAN CORPUSCULAR HGB 31.1 PG (27.0-31.0); MEAN CORPUSCULAR HGB CONC 32.6 G/DL (33.0-37.0); MEAN CORPUSCULAR VOLUME 95.3 FL (81.0-99.0); MEAN PLATELET VOLUME 10.5 FL (7.4-10.4); PLATELET COUNT 62 /CUMM (130-400); RBC DISTRIBUTION WIDTH 18.2 % (11.5-14.5); RED BLOOD CELL CT 2.33 /CUMM (4.20-5.40); WHITE BLOOD CELL COUNT 2.9 /CUMM (4.8-10.8)
[2017-07-04 00:44] VITALS: BP 110/60
[2017-07-04 07:03] VITALS: BP 118/64
[2017-07-04 07:51] LABS: ABSOLUTE BASOPHIL COUNT 0 /CUMM (0.0-0.2); ABSOLUTE EOSINOPHIL COUNT 0.1 /CUMM (0.0-0.7); ABSOLUTE GRANULOCYTE CT 1.3 /CUMM (1.4-6.5); ABSOLUTE LYMPH COUNT 0.7 /CUMM (1.2-3.4); ABSOLUTE MONOCYTE COUNT 0.3 /CUMM (0.10-0.60); BASOPHIL % 0.4 % (0.0-2.0); GRANULOCYTE % 56.2 % (42.2-75.2); HEMATOCRIT 23.8 % (37-47); MEAN CORPUSCULAR HGB 31.1 PG (27.0-31.0); MEAN CORPUSCULAR VOLUME 94.3 FL (81.0-99.0); MEAN PLATELET VOLUME 9.1 FL (7.4-10.4); RBC DISTRIBUTION WIDTH 18.5 % (11.5-14.5); RED BLOOD CELL CT 2.52 /CUMM (4.20-5.40); WHITE BLOOD CELL COUNT 2.3 /CUMM (4.8-10.8)
[2017-07-04 09:00] LABS: PLATELET COUNT 56 /CUMM (130-400)
--- NOTE | 2017-07-04 10:07 | PN- Housestaff ---
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 Complains as listed above. VSS. Received two units of blood. Alps was off. SQ Hep was stopped due to worsening low plt. Review of Systems Constitutional: Reports: no symptoms. Gastrointestinal: Reports: bloating, distention, nausea. Denies: abdominal pain, constipation, diarrhea, bowel incontinence, melena, bloody stool, changes in stool, vomiting, steatorrhea. Objective Last 24 Hrs of Vital Signs/I&O Vital Signs Date Time Temp Pulse Resp B/P B/P Pulse O2 O2 Flow FiO2 Mean Ox Delivery Rate 07/04 0818 122/70 / 0703 98.8 60 20 118/64 95 Room Air / 0044 98.3 62 20 110/60 94 Room Air / 0000 94 Room Air 07/03 2228 98.6 61 18 108/60 92 / 1600 Room Air / 1348 98.5 60 20 112/58 95 Room Air Intake & Output 07/04 1600 /04 0800 02/04 0000 Intake Total 900 1190 Output Total 500 400 Balance 400 790 Intake, Blood 300 350 Product Intake, IV 600 600 Intake, Oral 0 240 Output, Urine 500 400 Physical Exam General Appearance: Alert, Oriented X3, Cooperative, Mild Distress Cardiovascular: Regular Rate, Normal S1, Normal S2, No Murmurs, Gallops Abdomen: Soft, distended , + fluid wave Neurological: Normal Speech Extremities: No Edema Vascular: Normal Pulses, Pulses Symmetrical Current Medications: Current Medications Sig/Jennifer Start time Last Medication Dose Route Stop Time Status Admin Acetaminophen 1,000 MG Q6P PRN 07/03 1945 AC N/A 1 UNIT IV Albumin Human 25 GM Q8H 07/04 0500 AC / IV 07/05 2101 0600 Albumin Human 25 GM Q8H 07/04 0300 DC IV 07/05 1901 Albumin Human 25 GM Q8 07/03 1436 DC 07/03 IV 07/05 2155 1920 Allopurinol 100 MG DAILY 07/03 1000 AC 07/04 PO 0818 Amlodipine Besylate 10 MG DAILY 02/03 1000 DC 02 PO 0900 Atorvastatin Calcium 10 MG 1700 / 1700 AC 07/03 PO 1627 Carbidopa/Levodopa 1 TAB TID 07/03 1000 AC 07/04 PO 0818 Cyanocobalamin 1,000 MCG DAILY 07/03 1000 AC 07/04 PO 0818 Dextrose/Sodium 1,000 ML Q13H 07/03 1545 DC 02 Chloride IV 1927 Duloxetine HCl 60 MG 07/05 1000 AC PO Fentanyl Citrate 12 MCG Q72H 07/03 0645 AC 07/03 TOP 0859 Ferrous Sulfate 325 MG DAILY 07/03 1523 AC 07/04 PO 0818 Heparin Sodium 5,000 UNIT Q8 07/03 0600 DC 07/03 (Porcine) SC 1302 Insulin Aspart 0 AT BEDTIME 07/04 2200 AC SC Insulin Aspart 0 TIDAC 07/04 1200 AC SC Insulin Aspart 0 AT BEDTIME 07/03 2200 CAN SC Insulin Aspart 0 TIDAC 07/03 0800 DC 07/03 SC 1302 Insulin Detemir 6 UNITS BID 07/04 2200 AC SC Insulin Detemir 6 UNITS BID 07/03 2200 CAN SC Insulin Detemir 10 UNITS BID 07/03 1000 DC 07/03 SC 0858 Insulin Human Regular 2 UNITS .STK-MED ONE 07/04 0028 DC IV 07/04 0029 Insulin Human Regular 0 Q6 07/03 1800 DC 07/04 SC 0641 Levothyroxine Sodium 0.2 MG DAILY AC 07/03 0700 AC 07/04 PO 0641 Lidocaine 1 PAT DAILY 07/03 1000 AC 07/04 EXT 0818 Nadolol 20 MG DAILY 07/03 1000 AC 07/04 PO 0818 Omeprazole 40 MG DAILY AC 07/03 0700 AC 07/04 PO 0641 Sodium Chloride 1,000 ML Q10H 07/03 1430 DC 07/03 IV 1438 Last 24 Hrs of Lab/Unruly Results Last 24 Hrs of Labs/Mics: Laboratory Tests 07/04/17 0735: Anion Gap 15, Estimated GFR 14 L, BUN/Creatinine Ratio 21.9, CBC w Diff NO MAN DIFF REQ, RBC 2.52 L, MCV 94.3, MCH 31.1 H, MCHC 33.0, RDW 18.5 H, MPV 9.1, Gran % 56.2, Lymphocytes % 29.0, Monocytes % 11.4 H, Eosinophils % 3.0, Basophils % 0.4, Absolute Granulocytes 1.3 L, Absolute Lymphocytes 0.7 L, Absolute Monocytes 0.3, Absolute Eosinophils 0.1, Absolute Basophils 0 07/04/17 0647: Urine Osmolality Pending, Ur Random Creatinine 64.3, Ur Random Sodium 96 H, Ur Random Potassium 23.9, Fraction Sodium Excret 3.4 H 07/03/17 2135: Prot Electrophoresis Pending, Total Protein (PEP) Pending, Albumin % (PEP) Pending, [id number] Pending, Jxjhj-9-Syztgwfrp Pending, Dnmy-5-Oyeewlfd Pending, Jwan-4-Jcwesgoz Pending, Gamma Globulins Pending, Abnorm Protein Band 1 Pending, Abnorm Protein Band 2 Pending, Abnorm Protein Band 3 Pending, CBC w Diff NO MAN DIFF REQ, RBC 2.33 L, MCV 95.3, MCH 31.1 H, MCHC 32.6 L, RDW 18.2 H, MPV 10.5 H, Gran % 61.0, Lymphocytes % 24.5, Monocytes % 11.0 H, Eosinophils % 2.9, Basophils % 0.6, Absolute Granulocytes 1.8, Absolute Lymphocytes 0.7 L, Absolute Monocytes 0.3, Absolute Eosinophils 0.1, Absolute Basophils 0 07/03/17 2057: Ur Random Creatinine 89.7, U Random Total Protein 12, Protein/Creatinin Ratio 0.1 07/03/17 1412: CBC w Diff NO MAN DIFF REQ, RBC 2.29 L, MCV 98.3, MCH 30.8, MCHC 31.3 L, RDW 18.6 H, MPV 10.4, Gran % 70.1, Lymphocytes % 17.6 L, Monocytes % 8.5, Eosinophils % 3.2, Basophils % 0.6, Absolute Granulocytes 2.7, Absolute Lymphocytes 0.7 L, Absolute Monocytes 0.3, Absolute Eosinophils 0.1, Absolute Basophils 0 07/03/17 1245: Anion Gap 16, Estimated GFR 13 L, BUN/Creatinine Ratio 21.5, CBC w Diff NO MAN DIFF REQ, RBC 2.02 L, MCV 97.9, MCH 31.7 H, MCHC 32.4 L, RDW 18.6 H, MPV 9.3 , Gran % 71.3, Lymphocytes % 17.0 L, Monocytes % 8.3, Eosinophils % 3.0, Basophils % 0.4, Absolute Granulocytes 2.3, Absolute Lymphocytes 0.5 L, Absolute Monocytes 0.3, Absolute Eosinophils 0.1, Absolute Basophils 0 Assessment/Plan Assessment: 81 years old woman w/ multiple comorbidities was admitted for JONH most possibly secondary to HRS, acute on chronic blood loss, uncontrolled DM and portal HTN complication ( low PLT, varceal I-II, and gastropathy). Patient was aundrea by: Business Process Specialist aviation safety officer GI hospitalist Artie data Renal US was obtained: R/O any obstructive uropathy Echocardiogram : pending plan * albumin challenage 1 g/kg max 100 per day in dvided doses- Cr slightly improved * Transfuse PRBC and maintyain Hgb at 8- avoid transfusion as much as possible as it increases the risk os variceal bleeding * low PLT- mostly related to portal HTN and sequsetration- DC heparin SQ and resume ALPS * Adjusted Levemir dose 6 U BID and SS- Blood sugars are relatively uncontrolled * Continue Nadolol and her anti-HTN and anti-depression medication * Refere to PCP for out patient measurment of Vit D and and Ca- high leighton of osteoprosis Off Hep-SQ ALPS FC Problem List: 1. GI bleed 2. Anemia 3. Gait instability Pain Ratin Pain Location: none Pain Goal: Remain pain free Pain Plan: as ordered Tomorrow's Labs & Rationales: cbc bep
--- NOTE | 2017-07-04 10:26 | PN- Gastroenterology ---
Assessment/Plan Assessment/Recommendations: Assessment: Ms. Luna is an 81 year old female with a history of SORIA/cirrhosis who presented to yesterday with worsening renal function which is likely secondary to pre-renal azotemia from the diuretics she was started on a few weeks ago for anasarca as well as the nsaids she was taking. She has had some improvement in her renal function with volume expansion with albumin, which I would still recommend giving as her elevated serum albumin is likely falsely elevated from intravascular volume depletion, along with IVF as recommended by renal. She still has a moderate amount of ascites on the US so it may ultimatlely be beneficial to perform a therapeutic paracentesis as the diuretics are being held, but as this fluid is not causing any significant distress at present this isn't urgent. A diagnositic tap would be appropriate to rule out SBP if she spikes a temp, increases her WBC or develops significant abdominal pain. Her hgb has responded appropriately to transfusion and as I suspect her bleeding is from occult bleeding from her portal hypertensive gastropathy I don' t feel repeat endoscopic intervention is necessary at this time. Recommendatons: 1. Fluid challenge with albumin 25 gm iv another 24 hrs along with IVF per nephrology 2. Follow daily renal function and lytes 3. Follow up official renal recommendations 4. Continue to hold diuretics 5. Continue nadolol as bp tolerates and titrate to HR of 55-60 6. Continue oral iron supplementation 7. Notify GI for signs of overt GI bleeding 8. If she complains of abd pain, spikes a temp or increased WBC would then do a diagnostic paracentesis and/or if her kidney function worsens. 9. Avoid NSAIDs and she and her son were told that she should not be taking them for pain I will continue to follow this patient and make further recommendations based on her clinical course and results of repeat blood work and imaging. Problem List: 1. Anemia 2. GI bleed 3. Hepatosplenomegaly 4. Volume overload Subjective Subjective: Pt s/p US and transfusion with one unit of PRBCs last night. Some nausea, but no vomiting. Also no melena or brbpr. Objective Vital Signs and I&Os Vital Signs Date Time Temp Pulse Resp B/P B/P Pulse O2 O2 Flow FiO2 Mean Ox Delivery Rate 07/04 0818 122/70 07/04 0703 98.8 60 20 118/64 95 Room Air 07/04 0044 98.3 62 20 110/60 94 Room Air 02/ 0000 94 Room Air / 2228 98.6 61 18 108/60 92 02/ 1600 Room Air 02/ 1348 98.5 60 20 112/58 95 Room Air Intake & Output / 1600 07/04 0400 07/03 1600 07/03 0400 07/02 1600 / 0400 Intake Total 900 1190 400 0 Output Total 500 400 100 Balance 400 790 300 0 Intake, Blood 300 350 Product Intake, IV 600 600 10 Intake, Oral 0 240 390 0 Number 1 Bowel Movements Output, Urine 500 400 100 Patient 230 lb Weight Weight Standing Scale Measurement Method Physical Exam General Appearance: well developed/nourished, no apparent distress, alert, awake , comfortable Head: atraumatic, normal appearance Ears, Nose, Throat: normal pharynx, normal ENT inspection Neck: normal inspection, supple Respiratory: normal breath sounds Cardiovascular: regular rate/rhythm Abdomen: normal bowel sounds, soft, non-tender, distention Back: normal inspection Skin: intact, normal color Current Medications: Current Medications Sig/Jennifer Start time Last Medication Dose Route Stop Time Status Admin Acetaminophen 1,000 MG Q6P PRN 07/03 1945 N/A 1 UNIT IV Albumin Human 25 GM Q8H / 0500 AC / IV / 2101 0600 Albumin Human 25 GM Q8H / 0300 DC IV 02/ 1901 Albumin Human 25 GM Q8 / 1436 DC / IV 02/ 2155 1920 Allopurinol 100 MG DAILY 07/03 1000 AC 07/04 PO 0818 Amlodipine Besylate 10 MG DAILY 07/03 1000 DC 02/ PO 0900 Atorvastatin Calcium 10 MG 1700 / 1700 AC / PO 1627 Carbidopa/Levodopa 1 TAB TID 07/03 1000 AC / PO 0818 Cyanocobalamin 1,000 MCG DAILY 07/03 1000 AC / PO 0818 Dextrose/Sodium 1,000 ML Q13H / 1545 DC 02 Chloride IV 1927 Duloxetine HCl 60 MG 07/05 1000 AC PO Fentanyl Citrate 12 MCG Q72H 07/03 0645 07/03 TOP 0859 Ferrous Sulfate 325 MG DAILY 07/03 1523 AC 07/04 PO 0818 Heparin Sodium 5,000 UNIT Q8 07/03 0600 DC 07/03 (Porcine) SC 1302 Insulin Aspart 0 AT BEDTIME 07/04 2200 UNVr SC Insulin Aspart 0 TIDAC 07/04 1200 UNVr SC Insulin Aspart 0 AT BEDTIME 07/03 2200 CAN SC Insulin Aspart 0 TIDAC 07/03 0800 DC 07/03 SC 1302 Insulin Detemir 6 UNITS BID 07/04 2200 UNVr SC Insulin Detemir 6 UNITS BID 07/03 2200 CAN SC Insulin Detemir 10 UNITS BID 07/03 1000 DC 07/03 SC 0858 Insulin Human Regular 2 UNITS .STK-MED ONE 07/04 0028 DC IV 07/04 0029 Insulin Human Regular 0 Q6 07/03 1800 DC 07/04 SC 0641 Levothyroxine Sodium 0.2 MG DAILY AC 07/03 0700 AC 07/04 PO 0641 Lidocaine 1 PAT DAILY 07/03 1000 AC 07/04 EXT 0818 Nadolol 20 MG DAILY 07/03 1000 AC 07/04 PO 0818 Omeprazole 40 MG DAILY AC 07/03 0700 AC 07/04 PO 0641 Sodium Chloride 1,000 ML Q10H 07/03 1430 DC 07/03 IV 1438 Results Pertinent Lab Results: Laboratory Tests 07/04 07/04 0735 0647 Chemistry Sodium (137 - 145 mmol/L) 142 Potassium (3.5 - 5.1 mmol/L) 4.3 Chloride (98 - 107 mmol/L) 100 Carbon Dioxide (22 - 30 mmol/L) 27 Anion Gap (5 - 16) 15 BUN (7 - 17 mg/dL) 68 H Creatinine (0.5 - 1.0 mg/dL) 3.1 H Estimated GFR (>60 ml/min) 14 L BUN/Creatinine Ratio (7 - 25 %) 21.9 Hematology CBC w Diff NO MAN DIFF REQ WBC (4.8 - 10.8 /CUMM) 2.3 L RBC (4.20 - 5.40 /CUMM) 2.52 L Hgb (12.0 - 16.0 G/DL) 7.9 L Hct (37 - 47 %) 23.8 L MCV (81.0 - 99.0 FL) 94.3 MCH (27.0 - 31.0 PG) 31.1 H MCHC (33.0 - 37.0 G/DL) 33.0 RDW (11.5 - 14.5 %) 18.5 H Plt Count (130 - 400 /CUMM) 56 L MPV (7.4 - 10.4 FL) 9.1 Gran % (42.2 - 75.2 %) 56.2 Lymphocytes % (20.5 - 51.1 %) 29.0 Monocytes % (1.7 - 9.3 %) 11.4 H Eosinophils % (0 - 5 %) 3.0 Basophils % (0.0 - 2.0 %) 0.4 Absolute Granulocytes (1.4 - 6.5 /CUMM) 1.3 L Absolute Lymphocytes (1.2 - 3.4 /CUMM) 0.7 L Absolute Monocytes (0.10 - 0.60 /CUMM) 0.3 Absolute Eosinophils (0.0 - 0.7 /CUMM) 0.1 Absolute Basophils (0.0 - 0.2 /CUMM) 0 Urines Urine Osmolality (300 - 1000 MOSM/KG) Pending Ur Random Creatinine (mg/dL) 64.3 Ur Random Sodium (30 - 90 mmol/L) 96 H Ur Random Potassium (mmol/L) 23.9 Fraction Sodium Excret (<1% %) 3.4 H /03 07/035 7 Chemistry Prot Electrophoresis Pending Total Protein (PEP) Pending Albumin % (PEP) Pending Jbntd-5-Lkfklqvvp Pending Oqpsj-8-Fvbzluvdw Pending Tipw-8-Kobhtlpz Pending Kwro-0-Szazzltp Pending Gamma Globulins Pending Abnorm Protein Band 1 Pending Abnorm Protein Band 2 Pending Abnorm Protein Band 3 Pending Hematology CBC w Diff NO MAN DIFF REQ WBC (4.8 - 10.8 /CUMM) 2.9 L RBC (4.20 - 5.40 /CUMM) 2.33 L Hgb (12.0 - 16.0 G/DL) 7.3 *L Hct (37 - 47 %) 22.2 L MCV (81.0 - 99.0 FL) 95.3 MCH (27.0 - 31.0 PG) 31.1 H MCHC (33.0 - 37.0 G/DL) 32.6 L RDW (11.5 - 14.5 %) 18.2 H Plt Count (130 - 400 /CUMM) 62 L MPV (7.4 - 10.4 FL) 10.5 H Gran % (42.2 - 75.2 %) 61.0 Lymphocytes % (20.5 - 51.1 %) 24.5 Monocytes % (1.7 - 9.3 %) 11.0 H Eosinophils % (0 - 5 %) 2.9 Basophils % (0.0 - 2.0 %) 0.6 Absolute Granulocytes (1.4 - 6.5 /CUMM) 1.8 Absolute Lymphocytes (1.2 - 3.4 /CUMM) 0.7 L Absolute Monocytes (0.10 - 0.60 /CUMM) 0.3 Absolute Eosinophils (0.0 - 0.7 /CUMM) 0.1 Absolute Basophils (0.0 - 0.2 /CUMM) 0 Urines Ur Random Creatinine (mg/dL) 89.7 U Random Total Protein (0 - 12 mg/dL) 12 Protein/Creatinin Ratio (< 0.2) 0.1 07/03 07/03 1412 1245 Chemistry Sodium (137 - 145 mmol/L) 143 Potassium (3.5 - 5.1 mmol/L) 4.4 Chloride (98 - 107 mmol/L) 100 Carbon Dioxide (22 - 30 mmol/L) 27 Anion Gap (5 - 16) 16 BUN (7 - 17 mg/dL) 71 H Creatinine (0.5 - 1.0 mg/dL) 3.3 H Estimated GFR (>60 ml/min) 13 L BUN/Creatinine Ratio (7 - 25 %) 21.5 Hematology CBC w Diff NO MAN DIFF REQ NO MAN DIFF REQ WBC (4.8 - 10.8 /CUMM) 3.9 L 3.2 L RBC (4.20 - 5.40 /CUMM) 2.29 L 2.02 L Hgb (12.0 - 16.0 G/DL) 7.1 *L 6.4 *L Hct (37 - 47 %) 22.5 L 19.8 *L MCV (81.0 - 99.0 FL) 98.3 97.9 MCH (27.0 - 31.0 PG) 30.8 31.7 H MCHC (33.0 - 37.0 G/DL) 31.3 L 32.4 L RDW (11.5 - 14.5 %) 18.6 H 18.6 H Plt Count (130 - 400 /CUMM) 77 L 68 L MPV (7.4 - 10.4 FL) 10.4 9.3 Gran % (42.2 - 75.2 %) 70.1 71.3 Lymphocytes % (20.5 - 51.1 %) 17.6 L 17.0 L Monocytes % (1.7 - 9.3 %) 8.5 8.3 Eosinophils % (0 - 5 %) 3.2 3.0 Basophils % (0.0 - 2.0 %) 0.6 0.4 Absolute Granulocytes (1.4 - 6.5 /CUMM) 2.7 2.3 Absolute Lymphocytes (1.2 - 3.4 /CUMM) 0.7 L 0.5 L Absolute Monocytes (0.10 - 0.60 /CUMM) 0.3 0.3 Absolute Eosinophils (0.0 - 0.7 /CUMM) 0.1 0.1 Absolute Basophils (0.0 - 0.2 /CUMM) 0 0 07/03 07/03 07/03 0620 0620 0252 Coagulation PT (9.4 - 12.5 SEC) 15.1 H INR (0.90 - 1.19) 1.44 H Urines Urinalysis LIGHT H Urine Color (YEL,AMB,STR) YEL Urine Clarity (CLEAR) HAZY H Urine pH (5.0 - 8.0) 6.0 Ur Specific [place] (1.001 - 1.035) 1.015 Urine Protein (NEG,<30 MG/DL) NEG Urine Ketones (NEG) NEG Urine Nitrite (NEG) POS H Urine Bilirubin (NEG) NEG Urine Urobilinogen (0.1 - 1.0 EU/dl) 0.2 Ur Leukocyte Esterase (NEG) NEG Ur Microscopic SEDIMENT EXAMINED Urine WBC (0 - 2 /HPF) 5-10 H Ur Epithelial Cells (NONE,FEW) FEW Urine Bacteria (NEG/NONE) MANY H Hyaline Casts (0/LPF) RARE H Urine Hemoglobin (NEG) NEG Urine Osmolality (300 - 1000 MOSM/KG) 383 Ur Random Creatinine (mg/dL) 49.3 Ur Random Sodium (30 - 90 mmol/L) 119 H Ur Random Potassium (mmol/L) 22.4 Fraction Sodium Excret (<1% %) 5.9 H Urine Glucose (N MG/DL) NEG 07/02 07/02 1740 1737 Chemistry Sodium (137 - 145 mmol/L) 143 Potassium (3.5 - 5.1 mmol/L) 4.8 Chloride (98 - 107 mmol/L) 98 Carbon Dioxide (22 - 30 mmol/L) 27 Anion Gap (5 - 16) 18 H BUN (7 - 17 mg/dL) 74 H Creatinine (0.5 - 1.0 mg/dL) 3.5 H Estimated GFR (>60 ml/min) 13 L BUN/Creatinine Ratio (7 - 25 %) 21.1 Glucose (65 - 99 mg/dL) 217 H Calcium (8.4 - 10.2 mg/dL) 10.7 H Total Bilirubin (0.2 - 1.3 mg/dL) 0.9 AST (14 - 36 U/L) 25 ALT (9 - 52 U/L) 22 Alkaline Phosphatase (<127 U/L) 155 H Troponin I (< 0.11 ng/ml) 0.02 Doy-I-Lciohnjwbuu Pept (<125 pg/mL) 2850 H Cancelled Total Protein (6.3 - 8.2 g/dL) 7.0 Albumin (3.5 - 5.0 g/dL) 4.0 Globulin (1.9 - 4.2 gm/dL) 3.0 Albumin/Globulin Ratio (1.1 - 2.2 %) 1.3 Hematology CBC w Diff NO MAN DIFF REQ WBC (4.8 - 10.8 /CUMM) 5.3 RBC (4.20 - 5.40 /CUMM) 2.56 L Hgb (12.0 - 16.0 G/DL) 8.2 L Hct (37 - 47 %) 25.0 L MCV (81.0 - 99.0 FL) 97.9 MCH (27.0 - 31.0 PG) 32.2 H MCHC (33.0 - 37.0 G/DL) 32.9 L RDW (11.5 - 14.5 %) 18.4 H Plt Count (130 - 400 /CUMM) 104 L MPV (7.4 - 10.4 FL) 10.5 H Gran % (42.2 - 75.2 %) 72.6 Lymphocytes % (20.5 - 51.1 %) 14.1 L Monocytes % (1.7 - 9.3 %) 9.5 H Eosinophils % (0 - 5 %) 3.4 Basophils % (0.0 - 2.0 %) 0.4 Absolute Granulocytes (1.4 - 6.5 /CUMM) 3.8 Absolute Lymphocytes (1.2 - 3.4 /CUMM) 0.7 L Absolute Monocytes (0.10 - 0.60 /CUMM) 0.5 Absolute Eosinophils (0.0 - 0.7 /CUMM) 0.2 Absolute Basophils (0.0 - 0.2 /CUMM) 0 Imaging/Other Studies: SERVICE DATE: 07/03/17- EXAM TYPE: US - US-COMPLETE ABDOMEN EXAMINATION: US ABDOMEN COMPLETE CLINICAL INFORMATION: Distended abdomen. Patient has history of cirrhosis and presents with distended abdomen. COMPARISON: Ultrasound of the abdomen dated 05/14/2017. TECHNIQUE: Real-time imaging of the abdominal viscera. FINDINGS: PANCREAS: Obscured by overlying bowel gas. ABDOMINAL AORTA: The proximal segment is normal in caliber. INFERIOR VENA CAVA: Not seen. LIVER: The liver shows a nodular contour and coarsened echotexture, consistent with liver cirrhosis. No focal lesion or intrahepatic biliary duct dilatation. With color Doppler imaging, hepatopetal flow within the main portal vein is seen. GALLBLADDER: Surgically absent. COMMON BILE DUCT: Normal in caliber measuring 0.3 cm in diameter. RIGHT KIDNEY: Diffuse atrophy of the right kidney is seen with decreased thickness and increased echogenicity, consistent with medical renal disease. No hydronephrosis. No renal calculi or focal parenchymal lesions. The kidney measures 7.3 cm in maximum dimension. LEFT KIDNEY: Poorly visualized. In the upper pole of the left kidney, a 3.0 x 1.9 x 3.0 cm simple cyst is seen. No hydronephrosis. No renal calculi or suspicious focal parenchymal lesions. The kidney measures 10.6 cm in maximum dimension. SPLEEN: Enlarged. The spleen measures 15.1 cm in maximum dimension. FREE FLUID: Moderate volume fluid is seen surrounding the liver and small volume fluid is seen in the left upper quadrant. Volume of fluid appears larger than on the prior ultrasound from 05/14/2017. IMPRESSION: 1. Cirrhotic liver with findings consistent with portal venous hypertension as evidenced by splenomegaly and moderate volume abdominal ascites. Compared to 05/14/2017, volume of fluid appears larger. 2. Pancreas not seen. 3. Atrophic right kidney. Left kidney poorly seen. Upper pole left renal 3 cm cyst noted.
--- NOTE | 2017-07-04 11:10 | PN- Diabetes ---
Assessment/Plan Assessment: This 81-year-old woman has a known history of type 2 diabetes mellitus. She also has chronic renal disease stage III-IV. Apparently she began to notice swelling of her legs and abdomen. She saw her primary care doctor who added Lasix and Aldactone to her regimen. However her creatinine began to rise to 3.5 and she was sent to the emergency room. The patient's renal function is improving with hydration. She also received a blood transfusion. Her creatinine is down to 3.1 today. Presently on Levemir 6 units twice a day as well as sliding scale NovoLog before meals. Her sugar was 134 last night and is 121 this morning before breakfast. Apparently she is now going to resume her diet. Plan: Continue the same insulin for now. The patient states her appetite is poor and I am not sure how much she will eat. Further adjustments in her insulin regimen may be needed depending on her intake and her blood sugar readings today. Subjective Subjective: Feels exhausted and weak Review of Systems Constitutional: Denies: chills, fever. Cardiovascular: Denies: chest pain. Gastrointestinal: Denies: abdominal pain, nausea, vomiting. Skin: Reports: no symptoms. Objective Last 24 Hrs of Vital Signs/I&O Vital Signs Date Time Temp Pulse Resp B/P B/P Pulse O2 O2 Flow FiO2 Mean Ox Delivery Rate 07/04 0703 98.8 60 20 118/64 95 Room Air / 0044 98.3 62 20 110/60 94 Room Air 02 0000 94 Room Air 07/03 2228 98.6 61 18 108/60 92 02/03 1600 Room Air 02 1348 98.5 60 20 112/58 95 Room Air Intake & Output 07/04 1600 / 0800 02/04 0000 Intake Total 900 1190 Output Total 500 400 Balance 400 790 Intake, Blood 300 350 Product Intake, IV 600 600 Intake, Oral 0 240 Output, Urine 500 400 Vital Signs Date Time Temp Pulse Resp B/P B/P Pulse O2 O2 Flow FiO2 Mean Ox Delivery Rate 07/04 817 12270 02/ 0703 98.8 60 20 118/64 95 Room Air 02/04 0044 98.3 62 20 110/60 94 Room Air 02/04 0000 94 Room Air 02 2228 98.6 61 18 108/60 92 02/03 1600 Room Air 02/ 1348 98.5 60 20 112/58 95 Room Air Intake & Output / 1600 / 0800 / 0000 Intake Total 900 1190 Output Total 500 400 Balance 400 790 Intake, Blood 300 350 Product Intake, IV 600 600 Intake, Oral 0 240 Output, Urine 500 400 Physical Exam General Appearance: alert, awake, comfortable Head: normal appearance Respiratory: normal breath sounds Cardiovascular: regular rate/rhythm Abdomen: normal bowel sounds Current Medications: Current Medications Sig/Jennifer Start time Last Medication Dose Route Stop Time Status Admin Acetaminophen 1,000 MG Q6P PRN 07/03 1945 AC N/A 1 UNIT IV Albumin Human 25 GM Q8H 07/04 0500 AC / IV / 2101 0600 Albumin Human 25 GM Q8H / 0300 DC IV / 1901 Albumin Human 25 GM Q8 / 1436 DC 07/03 IV / 2155 1920 Allopurinol 100 MG DAILY 07/03 1000 AC 07/04 PO 0818 Amlodipine Besylate 10 MG DAILY 07/03 1000 DC 02/ PO 0900 Atorvastatin Calcium 10 MG 1700 02/ 1700 AC 02 PO 1627 Carbidopa/Levodopa 1 TAB TID 07/03 1000 AC 07/04 PO 0818 Cyanocobalamin 1,000 MCG DAILY 07/03 1000 AC / PO 0818 Dextrose/Sodium 1,000 ML Q13H 07/03 1545 DC 07/03 Chloride IV 1927 Duloxetine HCl 60 MG 07/05 1000 AC PO Fentanyl Citrate 12 MCG Q72H 07/03 0645 AC 07/03 TOP 0859 Ferrous Sulfate 325 MG DAILY 07/03 1523 AC / PO 0818 Heparin Sodium 5,000 UNIT Q8 07/03 0600 DC 07/03 (Porcine) SC 1302 Insulin Aspart 0 AT BEDTIME 07/04 2200 AC SC Insulin Aspart 0 TIDAC 07/04 1200 AC SC Insulin Aspart 0 AT BEDTIME 07/03 2200 CAN SC Insulin Aspart 0 TIDAC 07/03 0800 DC 07/03 SC 1302 Insulin Detemir 6 UNITS BID 07/04 2200 AC SC Insulin Detemir 6 UNITS BID 07/03 2200 CAN SC Insulin Detemir 10 UNITS BID 07/03 1000 DC 02/03 SC 0858 Insulin Human Regular 2 UNITS .STK-MED ONE 07/04 0028 DC IV 07/04 0029 Insulin Human Regular 0 Q6 07/03 1800 DC 07/04 SC 0641 Levothyroxine Sodium 0.2 MG DAILY AC 07/03 0700 AC 07/04 PO 0641 Lidocaine 1 PAT DAILY 07/03 1000 AC 07/04 EXT 0818 Nadolol 20 MG DAILY 07/03 1000 AC 07/04 PO 0818 Omeprazole 40 MG DAILY AC 07/03 0700 AC 07/04 PO 0641 Sodium Chloride 1,000 ML Q10H 07/03 1430 DC 07/03 IV 1438 Findings Pertinent Lab/Unruly Results: Laboratory Tests 07/04 07/04 0735 0647 Chemistry Sodium (137 - 145 mmol/L) 142 Potassium (3.5 - 5.1 mmol/L) 4.3 Chloride (98 - 107 mmol/L) 100 Carbon Dioxide (22 - 30 mmol/L) 27 Anion Gap (5 - 16) 15 BUN (7 - 17 mg/dL) 68 H Creatinine (0.5 - 1.0 mg/dL) 3.1 H Estimated GFR (>60 ml/min) 14 L BUN/Creatinine Ratio (7 - 25 %) 21.9 Hematology CBC w Diff NO MAN DIFF REQ WBC (4.8 - 10.8 /CUMM) 2.3 L RBC (4.20 - 5.40 /CUMM) 2.52 L Hgb (12.0 - 16.0 G/DL) 7.9 L Hct (37 - 47 %) 23.8 L MCV (81.0 - 99.0 FL) 94.3 MCH (27.0 - 31.0 PG) 31.1 H MCHC (33.0 - 37.0 G/DL) 33.0 RDW (11.5 - 14.5 %) 18.5 H Plt Count (130 - 400 /CUMM) 56 L MPV (7.4 - 10.4 FL) 9.1 Gran % (42.2 - 75.2 %) 56.2 Lymphocytes % (20.5 - 51.1 %) 29.0 Monocytes % (1.7 - 9.3 %) 11.4 H Eosinophils % (0 - 5 %) 3.0 Basophils % (0.0 - 2.0 %) 0.4 Absolute Granulocytes (1.4 - 6.5 /CUMM) 1.3 L Absolute Lymphocytes (1.2 - 3.4 /CUMM) 0.7 L Absolute Monocytes (0.10 - 0.60 /CUMM) 0.3 Absolute Eosinophils (0.0 - 0.7 /CUMM) 0.1 Absolute Basophils (0.0 - 0.2 /CUMM) 0 Urines Urine Osmolality (300 - 1000 MOSM/KG) Pending Ur Random Creatinine (mg/dL) 64.3 Ur Random Sodium (30 - 90 mmol/L) 96 H Ur Random Potassium (mmol/L) 23.9 Fraction Sodium Excret (<1% %) 3.4 H 0203 07/035 2056 Chemistry Prot Electrophoresis Pending Total Protein (PEP) Pending Albumin % (PEP) Pending Rccef-9-Wcxvyuase Pending Peisy-5-Svaixcrpw Pending Vgrn-6-Dzyposvx Pending Igqv-5-Wssqqake Pending Gamma Globulins Pending Abnorm Protein Band 1 Pending Abnorm Protein Band 2 Pending Abnorm Protein Band 3 Pending Hematology CBC w Diff NO MAN DIFF REQ WBC (4.8 - 10.8 /CUMM) 2.9 L RBC (4.20 - 5.40 /CUMM) 2.33 L Hgb (12.0 - 16.0 G/DL) 7.3 *L Hct (37 - 47 %) 22.2 L MCV (81.0 - 99.0 FL) 95.3 MCH (27.0 - 31.0 PG) 31.1 H MCHC (33.0 - 37.0 G/DL) 32.6 L RDW (11.5 - 14.5 %) 18.2 H Plt Count (130 - 400 /CUMM) 62 L MPV (7.4 - 10.4 FL) 10.5 H Gran % (42.2 - 75.2 %) 61.0 Lymphocytes % (20.5 - 51.1 %) 24.5 Monocytes % (1.7 - 9.3 %) 11.0 H Eosinophils % (0 - 5 %) 2.9 Basophils % (0.0 - 2.0 %) 0.6 Absolute Granulocytes (1.4 - 6.5 /CUMM) 1.8 Absolute Lymphocytes (1.2 - 3.4 /CUMM) 0.7 L Absolute Monocytes (0.10 - 0.60 /CUMM) 0.3 Absolute Eosinophils (0.0 - 0.7 /CUMM) 0.1 Absolute Basophils (0.0 - 0.2 /CUMM) 0 Urines Ur Random Creatinine (mg/dL) 89.7 U Random Total Protein (0 - 12 mg/dL) 12 Protein/Creatinin Ratio (< 0.2) 0.1 07/03 07/03 1412 1245 Chemistry Sodium (137 - 145 mmol/L) 143 Potassium (3.5 - 5.1 mmol/L) 4.4 Chloride (98 - 107 mmol/L) 100 Carbon Dioxide (22 - 30 mmol/L) 27 Anion Gap (5 - 16) 16 BUN (7 - 17 mg/dL) 71 H Creatinine (0.5 - 1.0 mg/dL) 3.3 H Estimated GFR (>60 ml/min) 13 L BUN/Creatinine Ratio (7 - 25 %) 21.5 Hematology CBC w Diff NO MAN DIFF REQ NO MAN DIFF REQ WBC (4.8 - 10.8 /CUMM) 3.9 L 3.2 L RBC (4.20 - 5.40 /CUMM) 2.29 L 2.02 L Hgb (12.0 - 16.0 G/DL) 7.1 *L 6.4 *L Hct (37 - 47 %) 22.5 L 19.8 *L MCV (81.0 - 99.0 FL) 98.3 97.9 MCH (27.0 - 31.0 PG) 30.8 31.7 H MCHC (33.0 - 37.0 G/DL) 31.3 L 32.4 L RDW (11.5 - 14.5 %) 18.6 H 18.6 H Plt Count (130 - 400 /CUMM) 77 L 68 L MPV (7.4 - 10.4 FL) 10.4 9.3 Gran % (42.2 - 75.2 %) 70.1 71.3 Lymphocytes % (20.5 - 51.1 %) 17.6 L 17.0 L Monocytes % (1.7 - 9.3 %) 8.5 8.3 Eosinophils % (0 - 5 %) 3.2 3.0 Basophils % (0.0 - 2.0 %) 0.6 0.4 Absolute Granulocytes (1.4 - 6.5 /CUMM) 2.7 2.3 Absolute Lymphocytes (1.2 - 3.4 /CUMM) 0.7 L 0.5 L Absolute Monocytes (0.10 - 0.60 /CUMM) 0.3 0.3 Absolute Eosinophils (0.0 - 0.7 /CUMM) 0.1 0.1 Absolute Basophils (0.0 - 0.2 /CUMM) 0 0
[2017-07-04 13:50] VITALS: BP 120/60
[2017-07-04 17:52] LABS: ABSOLUTE BASOPHIL COUNT 0 /CUMM (0.0-0.2); ABSOLUTE EOSINOPHIL COUNT 0.1 /CUMM (0.0-0.7); ABSOLUTE GRANULOCYTE CT 1.8 /CUMM (1.4-6.5); ABSOLUTE LYMPH COUNT 0.7 /CUMM (1.2-3.4); ABSOLUTE MONOCYTE COUNT 0.3 /CUMM (0.10-0.60); BASOPHIL % 0.5 % (0.0-2.0); EOSINOPHIL % 2.7 % (0-5); HEMATOCRIT 26.8 % (37-47); MEAN CORPUSCULAR HGB 31.1 PG (27.0-31.0); MEAN CORPUSCULAR HGB CONC 33.2 G/DL (33.0-37.0); MEAN CORPUSCULAR VOLUME 93.6 FL (81.0-99.0); MEAN PLATELET VOLUME 10.1 FL (7.4-10.4); PLATELET COUNT 65 /CUMM (130-400); RBC DISTRIBUTION WIDTH 18.7 % (11.5-14.5); RED BLOOD CELL CT 2.86 /CUMM (4.20-5.40)
[2017-07-04 21:21] VITALS: BP 122/56
[2017-07-05 06:20] VITALS: BP 134/70
--- NOTE | 2017-07-05 07:58 | PN- Housestaff ---
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 She had 1 bowel movement this morning. Review of Systems Constitutional: Reports: see HPI. Objective Last 24 Hrs of Vital Signs/I&O Vital Signs Date Time Temp Pulse Resp B/P B/P Pulse O2 O2 Flow FiO2 Mean Ox Delivery Rate 07/05 06 98.5 67 20 134/70 94 Room Air 07/04 2121 98.8 61 20 122/56 94 Room Air 07/04 1350 98.2 91 20 120/60 92 Room Air Intake & Output 07/05 1600 07/05 0800 07/05 0000 Intake Total 480 700 Output Total Balance 480 700 Intake, IV 120 Intake, Oral 360 700 Number 1 Bowel Movements Physical Exam General Appearance: Alert, Oriented X3, Cooperative, No Acute Distress Cardiovascular: Regular Rate, Normal S1, Normal S2 Lungs: Clear to Auscultation, Normal Air Movement Abdomen: Rigid, distended, nontender Extremities: No Edema Current Medications: Current Medications Sig/Jennifer Start time Last Medication Dose Route Stop Time Status Admin Acetaminophen 1,000 MG Q6P PRN 07/03 1945 AC N/A 1 UNIT IV Albumin Human 25 GM Q8H 07/04 0500 AC 07/05 IV 07/05 2101 0559 Allopurinol 100 MG DAILY 07/03 1000 AC 07/04 PO 0818 Atorvastatin Calcium 10 MG 1700 / 1700 AC 07/04 PO 1658 Carbidopa/Levodopa 1 TAB TID 07/03 1000 AC 07/04 PO 2058 Cyanocobalamin 1,000 MCG DAILY 07/03 1000 AC 07/04 PO 0818 Dextrose/Sodium 1,000 ML Q13H 07/03 1545 DC 07/03 Chloride IV 1927 Duloxetine HCl 60 MG 07/05 1000 AC PO Fentanyl Citrate 12 MCG Q72H 07/03 0645 AC 07/03 TOP 0859 Ferrous Sulfate 325 MG DAILY 07/03 1523 AC 07/04 PO 0818 Insulin Aspart 0 AT BEDTIME 07/04 2200 AC SC Insulin Aspart 0 TIDAC 07/04 1200 AC 07/04 SC 1817 Insulin Detemir 6 UNITS BID 07/04 2200 AC 07/04 SC 205 Insulin Human Regular 0 Q6 07/03 1800 DC 07/04 VA 0641 Levothyroxine Sodium 0.2 MG DAILY AC 07/03 0700 AC 07/05 PO 0559 Lidocaine 1 PAT DAILY 07/03 1000 AC 07/04 EXT 0818 Nadolol 20 MG DAILY 07/03 1000 AC 07/04 PO 0818 Omeprazole 40 MG DAILY AC 07/03 0700 AC 07/05 PO 0559 Last 24 Hrs of Lab/Unruly Results Last 24 Hrs of Labs/Mics: Laboratory Tests 07/04/17 1725: CBC w Diff NO MAN DIFF REQ, RBC 2.86 L, MCV 93.6, MCH 31.1 H, MCHC 33.2, RDW 18.7 H, MPV 10.1, Gran % 62.0, Lymphocytes % 24.9, Monocytes % 9.9 H, Eosinophils % 2.7, Basophils % 0.5, Absolute Granulocytes 1.8, Absolute Lymphocytes 0.7 L, Absolute Monocytes 0.3, Absolute Eosinophils 0.1, Absolute Basophils 0 Assessment/Plan Assessment: 81 years old woman w/ multiple comorbidities was admitted for JOHN most possibly secondary to HRS, acute on chronic blood loss, uncontrolled DM and portal HTN complication ( low PLT, varceal I-II, and gastropathy). Patient was aundrea by: [employer] GI hospitalist Artie data Renal US was obtained: R/O any obstructive uropathy Echocardiogram : pending plan * albumin challenage 1 g/kg max 100 per day in dvided doses- Cr slightly improved * Transfuse PRBC and maintyain Hgb at 8- avoid transfusion as much as possible as it increases the risk os variceal bleeding * low PLT- mostly related to portal HTN and sequsetration- DC heparin SQ and resume ALPS * Adjusted Levemir dose 6 U BID and SS- Blood sugars are relatively uncontrolled * Continue Nadolol and her anti-HTN and anti-depression medication * Refere to PCP for out patient measurment of Vit D and and Ca- high leighton of osteoprosis Off Hep-SQ ALPS FC Problem List: 1. Acute kidney failure 2. Portal hypertension Pain Ratin Pain Location: NA Pain Goal: Remain pain free Pain Plan: NA Tomorrow's Labs & Rationales: CBC, BEP Fela Matias MD 07/05/17 1335: Attending MD Review Statement Attending Statement Attending MD Statement: examined this patient, discuss w/resident/PA/BOOKING OFFICER, agreed w/resident/PA/BOOKING OFFICER, reviewed EMR data (avail) Attending Assessment/Plan: Renal function improving, will continue to monitor, follow nephrology and GI recommendations
--- NOTE | 2017-07-05 09:18 | PN- Diabetes ---
Assessment/Plan Assessment: This 81-year-old woman has a known history of type 2 diabetes mellitus. She also has chronic renal disease stage III-IV. Apparently she began to notice swelling of her legs and abdomen. She saw her primary care doctor who added Lasix and Aldactone to her regimen. However her creatinine began to rise to 3.5 and she was sent to the emergency room. The patient's renal function is improving with hydration. She also received a blood transfusion. Her hematocrit is now stable. Her creatinine is down to 3.1 today. Presently on Levemir 6 units twice a day as well as sliding scale NovoLog before meals. The patient blood sugars recently were 121, 136, 159, and 149. Plan: Suggest continue the present insulin. Patient's blood sugars are in reasonable control. Further management of her liver disease as per Dr. Bradley. Subjective Subjective: Still feels bloated Review of Systems Constitutional: Denies: chills, fever. Cardiovascular: Denies: chest pain. Gastrointestinal: Reports: bloating. Objective Last 24 Hrs of Vital Signs/I&O Vital Signs Date Time Temp Pulse Resp B/P B/P Pulse O2 O2 Flow FiO2 Mean Ox Delivery Rate 07/05 619 98.5 67 20 134/70 94 Room Air 07/041 98.8 61 20 122/56 94 Room Air 07/04 1350 98.2 91 20 120/60 92 Room Air Intake & Output 07/05 1600 07/05 0800 02/ 0000 Intake Total 480 700 Output Total Balance 480 700 Intake, IV 120 Intake, Oral 360 700 Number 1 Bowel Movements Vital Signs Date Time Temp Pulse Resp B/P B/P Pulse O2 O2 Flow FiO2 Mean Ox Delivery Rate 07/05 0520 98.5 67 20 134/70 94 Room Air 07/04 2120 98.8 61 20 122/56 94 Room Air 07/04 1350 98.2 91 20 120/60 92 Room Air Intake & Output 07/05 1600 07/05 0800 02/05 0000 Intake Total 480 700 Output Total Balance 480 700 Intake, IV 120 Intake, Oral 360 700 Number 1 Bowel Movements Physical Exam General Appearance: alert, awake, anxious Head: normal appearance Neck: normal inspection Respiratory: normal breath sounds Abdomen: distention Extremities: normal inspection Current Medications: Current Medications Sig/Jenniefr Start time Last Medication Dose Route Stop Time Status Admin Acetaminophen 1,000 MG Q6P PRN 07/03 1945 N/A 1 UNIT IV Albumin Human 25 GM Q8H 07/04 0500 AC 07/05 IV 07/05 2101 0559 Allopurinol 100 MG DAILY 07/03 1000 AC 07/04 PO 0818 Atorvastatin Calcium 10 MG 1700 / 1700 AC 07/04 PO 1658 Carbidopa/Levodopa 1 TAB TID 07/03 1000 AC 07/04 PO 2058 Cyanocobalamin 1,000 MCG DAILY 07/03 1000 AC 07/04 PO 0818 Dextrose/Sodium 1,000 ML Q13H 07/03 1545 DC 07/03 Chloride IV 1927 Duloxetine HCl 60 MG 07/05 1000 AC PO Fentanyl Citrate 12 MCG Q72H 07/03 0645 AC 07/03 TOP 0859 Ferrous Sulfate 325 MG DAILY 07/03 1523 AC 07/04 PO 0818 Insulin Aspart 0 AT BEDTIME 07/04 2200 AC SC Insulin Aspart 0 TIDAC 07/04 1200 AC 07/04 SC 1817 Insulin Detemir 6 UNITS BID 07/04 2200 AC 07/04 SC 2057 Insulin Human Regular 0 Q6 07/03 1800 DC 07/04 SC 0641 Levothyroxine Sodium 0.2 MG DAILY AC 07/03 0700 AC 07/05 PO 0559 Lidocaine 1 PAT DAILY 07/03 1000 AC 07/04 EXT 0818 Nadolol 20 MG DAILY 07/03 1000 AC 07/04 PO 0818 Omeprazole 40 MG DAILY AC 07/03 0700 AC 07/05 PO 0559 Findings Pertinent Lab/Unruly Results: Laboratory Tests 07/05 07/04 0810 1725 Chemistry Sodium Pending Potassium Pending Chloride Pending Carbon Dioxide Pending Anion Gap Pending BUN Pending Creatinine Pending BUN/Creatinine Ratio Pending Hematology CBC w Diff Pending NO MAN DIFF REQ WBC (4.8 - 10.8 /CUMM) Pending 3.0 L RBC (4.20 - 5.40 /CUMM) Pending 2.86 L Hgb (12.0 - 16.0 G/DL) Pending 8.9 L Hct (37 - 47 %) Pending 26.8 L MCV (81.0 - 99.0 FL) Pending 93.6 MCH (27.0 - 31.0 PG) Pending 31.1 H MCHC (33.0 - 37.0 G/DL) Pending 33.2 RDW (11.5 - 14.5 %) Pending 18.7 H Plt Count (130 - 400 /CUMM) Pending 65 L MPV (7.4 - 10.4 FL) Pending 10.1 Gran % (42.2 - 75.2 %) 62.0 Lymphocytes % (20.5 - 51.1 %) 24.9 Monocytes % (1.7 - 9.3 %) 9.9 H Eosinophils % (0 - 5 %) 2.7 Basophils % (0.0 - 2.0 %) 0.5 Absolute Granulocytes (1.4 - 6.5 /CUMM) 1.8 Absolute Lymphocytes (1.2 - 3.4 /CUMM) 0.7 L Absolute Monocytes (0.10 - 0.60 /CUMM) 0.3 Absolute Eosinophils (0.0 - 0.7 /CUMM) 0.1 Absolute Basophils (0.0 - 0.2 /CUMM) 0
[2017-07-05 10:24] LABS: ABSOLUTE BASOPHIL COUNT 0 /CUMM (0.0-0.2); ABSOLUTE EOSINOPHIL COUNT 0 /CUMM (0.0-0.7); ABSOLUTE GRANULOCYTE CT 1.5 /CUMM (1.4-6.5); ABSOLUTE LYMPH COUNT 0.6 /CUMM (1.2-3.4); ABSOLUTE MONOCYTE COUNT 0.3 /CUMM (0.10-0.60); BASOPHIL % 0.8 % (0.0-2.0); EOSINOPHIL % 1.9 % (0-5); GRANULOCYTE % 61.2 % (42.2-75.2); HEMATOCRIT 26.4 % (37-47); MEAN CORPUSCULAR HGB 31.3 PG (27.0-31.0); MEAN CORPUSCULAR HGB CONC 32.8 G/DL (33.0-37.0); MEAN CORPUSCULAR VOLUME 95.2 FL (81.0-99.0); MEAN PLATELET VOLUME 10.3 FL (7.4-10.4); PLATELET COUNT 62 /CUMM (130-400); RBC DISTRIBUTION WIDTH 18.7 % (11.5-14.5); RED BLOOD CELL CT 2.78 /CUMM (4.20-5.40); WHITE BLOOD CELL COUNT 2.5 /CUMM (4.8-10.8)
[2017-07-05 14:27] VITALS: BP 120/70; BP 1200/70
--- NOTE | 2017-07-05 16:03 | PN- Gastroenterology ---
Assessment/Plan Assessment/Recommendations: Assessment: Ms. Luna is an 81 year old female with a history of SORIA/cirrhosis who presented to 2 days ago with worsening renal function which is likely secondary to pre-renal azotemia from the diuretics she was started on a few weeks ago for anasarca as well as the nsaids she was taking. She has had some improvement in her renal function with volume expansion with albumin and holding nsaids. She still has a moderate amount of ascites on the US so as she is complaining of abdomnal discomfort it may be beneficial to perform a therapeutic paracentesis as the diuretics are being held, but this isn't urgent Her hgb has responded appropriately to transfusion and as I suspect her bleeding is from occult bleeding from her portal hypertensive gastropathy I don't feel repeat endoscopic intervention is necessary at this time. Recommendatons: 1. Continue albumin through today and then d/c but would continue maintenance IVF 2. Follow daily renal function and lytes 3. Follow up official renal recommendations 4. Continue to hold diuretics for now 5. Continue nadolol as bp tolerates and titrate to HR of 55-60 6. Continue oral iron supplementation 7. Notify GI for signs of overt GI bleeding 8. Considerin her pain would recommend a therapeutic paracentesis and would check a cell cound, albumin and cytology 9. Avoid NSAIDs and she and her son were told that she should not be taking them for pain I will continue to follow this patient and make further recommendations based on her clinical course and results of repeat blood work and imaging. Problem List: 1. GI bleed 2. Anemia 3. Cirrhosis Subjective Subjective: Complaining of some abdominal discomfort and nausea this morning. She is without any vomiting or overt abdominal pain. She does feel bloated. She had a normal bowel movement this morning. Objective Vital Signs and I&Os Vital Signs Date Time Temp Pulse Resp B/P B/P Pulse O2 O2 Flow FiO2 Mean Ox Delivery Rate 07/05 1427 97.7 62 20 120/70 95 / 0930 140/80 07/05 0620 98.5 67 20 134/70 94 Room Air 07/041 98.8 61 20 122/56 94 Room Air Intake & Output 07/05 1600 05 0400 07/04 1600 07/04 0400 07/03 1600 07/03 0400 Intake Total 450 801 0890 1190 400 0 Output Total 500 400 100 Balance 388 098 2151 790 300 0 Intake, Blood 300 350 Product Intake, IV 120 1200 600 10 Intake, Oral 560 700 0 240 390 0 Number 1 1 Bowel Movements Output, Urine 500 400 100 Patient 230 lb Weight Weight Standing Scale Measurement Method Physical Exam General Appearance: well developed/nourished, no apparent distress, alert, comfortable Head: atraumatic, normal appearance Neck: normal inspection, supple, full range of motion Respiratory: normal breath sounds Cardiovascular: regular rate/rhythm Abdomen: normal bowel sounds, soft, non-tender, distention Extremities: no edema Current Medications: Current Medications Sig/Jennifer Start time Last Medication Dose Route Stop Time Status Admin Acetaminophen 1,000 MG Q6P PRN 07/03 1945 AC N/A 1 UNIT IV Albumin Human 25 GM Q8H 07/04 0500 AC 07/05 IV 07/05 2101 1333 Allopurinol 100 MG DAILY 07/03 1000 AC 07/05 PO 0930 Atorvastatin Calcium 10 MG 1700 07/03 1700 AC 07/04 PO 1658 Carbidopa/Levodopa 1 TAB TID 07/03 1000 AC 07/05 PO 0930 Cyanocobalamin 1,000 MCG DAILY 07/03 1000 AC 07/05 PO 0930 Duloxetine HCl 60 MG 07/05 1000 AC 07/05 PO 0930 Fentanyl Citrate 12 MCG Q72H 07/03 0645 AC 07/03 TOP 0859 Ferrous Sulfate 325 MG DAILY 07/03 1523 AC 07/05 PO 0930 Insulin Aspart 0 AT BEDTIME 07/04 2200 AC SC Insulin Aspart 0 TIDAC 07/04 1200 AC 07/05 SC 1208 Insulin Detemir 6 UNITS BID 07/04 2200 AC 07/05 SC 0938 Levothyroxine Sodium 0.2 MG DAILY AC 07/03 0700 AC 07/05 PO 0559 Lidocaine 1 PAT DAILY 07/03 1000 AC 07/05 EXT 0939 Nadolol 20 MG DAILY 07/03 1000 AC 07/05 PO 0930 Nystatin 1 SANDEEP BID 07/05 1140 AC TOP Omeprazole 40 MG DAILY AC 07/03 0700 AC 07/05 PO 0559 Results Pertinent Lab Results: Laboratory Tests 07/05 07/05 0810 0758 Chemistry Sodium (137 - 145 mmol/L) 144 Potassium (3.5 - 5.1 mmol/L) 4.2 Chloride (98 - 107 mmol/L) 99 Carbon Dioxide (22 - 30 mmol/L) 28 Anion Gap (5 - 16) 16 BUN (7 - 17 mg/dL) 58 H Creatinine (0.5 - 1.0 mg/dL) 2.8 H Estimated GFR (>60 ml/min) 16 L BUN/Creatinine Ratio (7 - 25 %) 20.7 TSH (0.270 - 4.200 uIU/mL) 0.219 L Cancelled Free T4 (0.85 - 1.93 ng/dL) 2.42 H Cancelled Hematology CBC w Diff NO MAN DIFF REQ WBC (4.8 - 10.8 /CUMM) 2.5 L RBC (4.20 - 5.40 /CUMM) 2.78 L Hgb (12.0 - 16.0 G/DL) 8.7 L Hct (37 - 47 %) 26.4 L MCV (81.0 - 99.0 FL) 95.2 MCH (27.0 - 31.0 PG) 31.3 H MCHC (33.0 - 37.0 G/DL) 32.8 L RDW (11.5 - 14.5 %) 18.7 H Plt Count (130 - 400 /CUMM) 62 L MPV (7.4 - 10.4 FL) 10.3 Gran % (42.2 - 75.2 %) 61.2 Lymphocytes % (20.5 - 51.1 %) 25.7 Monocytes % (1.7 - 9.3 %) 10.4 H Eosinophils % (0 - 5 %) 1.9 Basophils % (0.0 - 2.0 %) 0.8 Absolute Granulocytes (1.4 - 6.5 /CUMM) 1.5 Absolute Lymphocytes (1.2 - 3.4 /CUMM) 0.6 L Absolute Monocytes (0.10 - 0.60 /CUMM) 0.3 Absolute Eosinophils (0.0 - 0.7 /CUMM) 0 Absolute Basophils (0.0 - 0.2 /CUMM) 0 07/04 07/04 1725 0735 Chemistry Sodium (137 - 145 mmol/L) 142 Potassium (3.5 - 5.1 mmol/L) 4.3 Chloride (98 - 107 mmol/L) 100 Carbon Dioxide (22 - 30 mmol/L) 27 Anion Gap (5 - 16) 15 BUN (7 - 17 mg/dL) 68 H Creatinine (0.5 - 1.0 mg/dL) 3.1 H Estimated GFR (>60 ml/min) 14 L BUN/Creatinine Ratio (7 - 25 %) 21.9 Hematology CBC w Diff NO MAN DIFF REQ NO MAN DIFF REQ WBC (4.8 - 10.8 /CUMM) 3.0 L 2.3 L RBC (4.20 - 5.40 /CUMM) 2.86 L 2.52 L Hgb (12.0 - 16.0 G/DL) 8.9 L 7.9 L Hct (37 - 47 %) 26.8 L 23.8 L MCV (81.0 - 99.0 FL) 93.6 94.3 MCH (27.0 - 31.0 PG) 31.1 H 31.1 H MCHC (33.0 - 37.0 G/DL) 33.2 33.0 RDW (11.5 - 14.5 %) 18.7 H 18.5 H Plt Count (130 - 400 /CUMM) 65 L 56 L MPV (7.4 - 10.4 FL) 10.1 9.1 Gran % (42.2 - 75.2 %) 62.0 56.2 Lymphocytes % (20.5 - 51.1 %) 24.9 29.0 Monocytes % (1.7 - 9.3 %) 9.9 H 11.4 H Eosinophils % (0 - 5 %) 2.7 3.0 Basophils % (0.0 - 2.0 %) 0.5 0.4 Absolute Granulocytes (1.4 - 6.5 /CUMM) 1.8 1.3 L Absolute Lymphocytes (1.2 - 3.4 /CUMM) 0.7 L 0.7 L Absolute Monocytes (0.10 - 0.60 /CUMM) 0.3 0.3 Absolute Eosinophils (0.0 - 0.7 /CUMM) 0.1 0.1 Absolute Basophils (0.0 - 0.2 /CUMM) 0 0 07/04 07/03 07/03 0610 6526 8544 Chemistry Prot Electrophoresis Pending Total Protein (PEP) Pending Albumin % (PEP) Pending [id number] Pending [id number] Pending [id number]-Trrmmqbh Pending [id number] Pending Gamma Globulins Pending Abnorm Protein Band 1 Pending Abnorm Protein Band 2 Pending Abnorm Protein Band 3 Pending Hematology CBC w Diff NO MAN DIFF REQ WBC (4.8 - 10.8 /CUMM) 2.9 L RBC (4.20 - 5.40 /CUMM) 2.33 L Hgb (12.0 - 16.0 G/DL) 7.3 *L Hct (37 - 47 %) 22.2 L MCV (81.0 - 99.0 FL) 95.3 MCH (27.0 - 31.0 PG) 31.1 H MCHC (33.0 - 37.0 G/DL) 32.6 L RDW (11.5 - 14.5 %) 18.2 H Plt Count (130 - 400 /CUMM) 62 L MPV (7.4 - 10.4 FL) 10.5 H Gran % (42.2 - 75.2 %) 61.0 Lymphocytes % (20.5 - 51.1 %) 24.5 Monocytes % (1.7 - 9.3 %) 11.0 H Eosinophils % (0 - 5 %) 2.9 Basophils % (0.0 - 2.0 %) 0.6 Absolute Granulocytes (1.4 - 6.5 /CUMM) 1.8 Absolute Lymphocytes (1.2 - 3.4 /CUMM) 0.7 L Absolute Monocytes (0.10 - 0.60 /CUMM) 0.3 Absolute Eosinophils (0.0 - 0.7 /CUMM) 0.1 Absolute Basophils (0.0 - 0.2 /CUMM) 0 Urines Urine Osmolality (300 - 1000 MOSM/KG) 415 Ur Random Creatinine (mg/dL) 64.3 89.7 U Random Total Protein (0 - 12 mg/dL) 12 Ur Random Sodium (30 - 90 mmol/L) 96 H Ur Random Potassium (mmol/L) 23.9 Protein/Creatinin Ratio (< 0.2) 0.1 Fraction Sodium Excret (<1% %) 3.4 H 02/03 02/03 1412 1245 Chemistry Sodium (137 - 145 mmol/L) 143 Potassium (3.5 - 5.1 mmol/L) 4.4 Chloride (98 - 107 mmol/L) 100 Carbon Dioxide (22 - 30 mmol/L) 27 Anion Gap (5 - 16) 16 BUN (7 - 17 mg/dL) 71 H Creatinine (0.5 - 1.0 mg/dL) 3.3 H Estimated GFR (>60 ml/min) 13 L BUN/Creatinine Ratio (7 - 25 %) 21.5 Hematology CBC w Diff NO MAN DIFF REQ NO MAN DIFF REQ WBC (4.8 - 10.8 /CUMM) 3.9 L 3.2 L RBC (4.20 - 5.40 /CUMM) 2.29 L 2.02 L Hgb (12.0 - 16.0 G/DL) 7.1 *L 6.4 *L Hct (37 - 47 %) 22.5 L 19.8 *L MCV (81.0 - 99.0 FL) 98.3 97.9 MCH (27.0 - 31.0 PG) 30.8 31.7 H MCHC (33.0 - 37.0 G/DL) 31.3 L 32.4 L RDW (11.5 - 14.5 %) 18.6 H 18.6 H Plt Count (130 - 400 /CUMM) 77 L 68 L MPV (7.4 - 10.4 FL) 10.4 9.3 Gran % (42.2 - 75.2 %) 70.1 71.3 Lymphocytes % (20.5 - 51.1 %) 17.6 L 17.0 L Monocytes % (1.7 - 9.3 %) 8.5 8.3 Eosinophils % (0 - 5 %) 3.2 3.0 Basophils % (0.0 - 2.0 %) 0.6 0.4 Absolute Granulocytes (1.4 - 6.5 /CUMM) 2.7 2.3 Absolute Lymphocytes (1.2 - 3.4 /CUMM) 0.7 L 0.5 L Absolute Monocytes (0.10 - 0.60 /CUMM) 0.3 0.3 Absolute Eosinophils (0.0 - 0.7 /CUMM) 0.1 0.1 Absolute Basophils (0.0 - 0.2 /CUMM) 0 0 02/03 02/07 30/ 0620 0620 0252 Coagulation PT (9.4 - 12.5 SEC) 15.1 H INR (0.90 - 1.19) 1.44 H Urines Urinalysis LIGHT H Urine Color (YEL,AMB,STR) YEL Urine Clarity (CLEAR) HAZY H Urine pH (5.0 - 8.0) 6.0 Ur Specific Century (1.001 - 1.035) 1.015 Urine Protein (NEG,<30 MG/DL) NEG Urine Ketones (NEG) NEG Urine Nitrite (NEG) POS H Urine Bilirubin (NEG) NEG Urine Urobilinogen (0.1 - 1.0 EU/dl) 0.2 Ur Leukocyte Esterase (NEG) NEG Ur Microscopic SEDIMENT EXAMINED Urine WBC (0 - 2 /HPF) 5-10 H Ur Epithelial Cells (NONE,FEW) FEW Urine Bacteria (NEG/NONE) MANY H Hyaline Casts (0/LPF) RARE H Urine Hemoglobin (NEG) NEG Urine Osmolality (300 - 1000 MOSM/KG) 383 Ur Random Creatinine (mg/dL) 49.3 Ur Random Sodium (30 - 90 mmol/L) 119 H Ur Random Potassium (mmol/L) 22.4 Fraction Sodium Excret (<1% %) 5.9 H Urine Glucose (N MG/DL) NEG 07/02 07/02 1740 1737 Chemistry Sodium (137 - 145 mmol/L) 143 Potassium (3.5 - 5.1 mmol/L) 4.8 Chloride (98 - 107 mmol/L) 98 Carbon Dioxide (22 - 30 mmol/L) 27 Anion Gap (5 - 16) 18 H BUN (7 - 17 mg/dL) 74 H Creatinine (0.5 - 1.0 mg/dL) 3.5 H Estimated GFR (>60 ml/min) 13 L BUN/Creatinine Ratio (7 - 25 %) 21.1 Glucose (65 - 99 mg/dL) 217 H Calcium (8.4 - 10.2 mg/dL) 10.7 H Total Bilirubin (0.2 - 1.3 mg/dL) 0.9 AST (14 - 36 U/L) 25 ALT (9 - 52 U/L) 22 Alkaline Phosphatase (<127 U/L) 155 H Troponin I (< 0.11 ng/ml) 0.02 [id number] Pept (<125 pg/mL) 2850 H Cancelled Total Protein (6.3 - 8.2 g/dL) 7.0 Albumin (3.5 - 5.0 g/dL) 4.0 Globulin (1.9 - 4.2 gm/dL) 3.0 Albumin/Globulin Ratio (1.1 - 2.2 %) 1.3 Hematology CBC w Diff NO MAN DIFF REQ WBC (4.8 - 10.8 /CUMM) 5.3 RBC (4.20 - 5.40 /CUMM) 2.56 L Hgb (12.0 - 16.0 G/DL) 8.2 L Hct (37 - 47 %) 25.0 L MCV (81.0 - 99.0 FL) 97.9 MCH (27.0 - 31.0 PG) 32.2 H MCHC (33.0 - 37.0 G/DL) 32.9 L RDW (11.5 - 14.5 %) 18.4 H Plt Count (130 - 400 /CUMM) 104 L MPV (7.4 - 10.4 FL) 10.5 H Gran % (42.2 - 75.2 %) 72.6 Lymphocytes % (20.5 - 51.1 %) 14.1 L Monocytes % (1.7 - 9.3 %) 9.5 H Eosinophils % (0 - 5 %) 3.4 Basophils % (0.0 - 2.0 %) 0.4 Absolute Granulocytes (1.4 - 6.5 /CUMM) 3.8 Absolute Lymphocytes (1.2 - 3.4 /CUMM) 0.7 L Absolute Monocytes (0.10 - 0.60 /CUMM) 0.5 Absolute Eosinophils (0.0 - 0.7 /CUMM) 0.2 Absolute Basophils (0.0 - 0.2 /CUMM) 0
[2017-07-05 22:50] VITALS: BP 134/68
[2017-07-06 06:20] VITALS: BP 142/80
--- NOTE | 2017-07-06 08:00 | PN- Housestaff ---
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 No overnight acute events. reports distended abdomen. States belly is fat and bloated. anticipating Paracentesis today. Denies nausea vomiting diarrhea, fever or chills. Review of Systems Constitutional: Reports: see HPI. Objective Last 24 Hrs of Vital Signs/I&O Vital Signs Date Time Temp Pulse Resp B/P B/P Pulse O2 O2 Flow FiO2 Mean Ox Delivery Rate 07/06 0900 70 142/80 02/06 0620 98.7 70 20 142/80 91 Room Air 02/ 2250 98.1 63 20 134/68 91 Room Air 02/ 1427 97.7 62 20 120/70 95 Intake & Output / 1600 02/06 0800 02/ 0000 Intake Total 200 400 Output Total 500 Balance 200 -100 Intake, Oral 200 400 Number 1 Bowel Movements Output, Urine 500 Physical Exam General Appearance: Alert, Oriented X3, Cooperative, No Acute Distress HEENT: Atraumatic Neck: No JVD Cardiovascular: Normal S1, Normal S2 Lungs: Clear to Auscultation, Normal Air Movement Abdomen: Normal Bowel Sounds, Distended, No fluid thrill Neurological: Normal Speech Assessment/Plan Assessment: 81 years old woman w/ multiple comorbidities was admitted for JOHN most possibly secondary to HRS, acute on chronic blood loss, uncontrolled DM and portal HTN complication ( low PLT, varceal I-II, and gastropathy). She is being evaluated and treated for following conditions #JOHN likely secondary to prerenal azotemia (diuretics use) in setting of severe CKD stage IV secondary to diabetes mellitus and hypertension -IVF NS 75 ml/hr -D/C albumin -Cr function improving slowly. 2.5 today -Continue to hold diuretics for now #Ascites -Theraputic paracentesis -F/U cell count and albumin, calculate SAAG #History of SORIA cirrhosis, esophageal varices, portal hypertension gastropathy -Continue nadolol as bp tolerates and titrate to HR of 55-60 #Acute on chronic anemia status post 1 unit PRBC, H/H stable Pt's bleeding is from occult bleeding from her portal hypertensive gastropathy. No endoscopic intervention is necessary at this time as per GI -Continue oral iron supplementation -maintain Hgb at 8- avoid transfusion as much as possible as it increases the risk os variceal bleeding -Echocardiogram : pending #Thrombocytopenia likely secondary to SORIA cirrhosis -Continue to monitor Platelet count relatively stable -DVT prophylaxis with ALPS only #Hypothyroidism free T4 2.42, TSH 0.219 -Reduce her levothyroxine to 0.175 mg daily. #DM -Presently on Levemir 6 units twice a day as well as sliding scale NovoLog before meals. NPO/ALPS in setting of thrombocytopenia/FC Problem List: 1. Acute kidney failure Pain Ratin Pain Location: n/a Pain Goal: Pain 4 or less Pain Plan: prn Tomorrow's Labs & Rationales: cbc bep Pain Goal: Pain 4 or less Pain Plan: prn Tomorrow's Labs & Rationales: cbc bep
--- NOTE | 2017-07-06 09:08 | PN- Diabetes ---
Assessment/Plan Assessment: This 81-year-old woman has a known history of type 2 diabetes mellitus. She also has chronic renal disease stage III-IV. Apparently she began to notice swelling of her legs and abdomen. She saw her primary care doctor who added Lasix and Aldactone to her regimen. However her creatinine began to rise to 3.5 and she was sent to the emergency room. The patient's renal function is improving with hydration. She also received a blood transfusion. Her hematocrit is now stable. Her creatinine is down to 2.8 today. Presently on Levemir 6 units twice a day as well as sliding scale NovoLog before meals. The patient blood sugars recently were 107 and 162. The patient's thyroid tests are too high with a free T4 of 2.42 and a TSH of 0.219 Plan: Suggest continue the present insulin. Her blood sugars have been in a satisfactory range. In view of the increased thyroid test we need to reduce her levothyroxine to 0.175 mg daily. Subjective Subjective: Feels improved Review of Systems Constitutional: Denies: chills, fever. Cardiovascular: Denies: chest pain. Gastrointestinal: Reports: distention. Objective Last 24 Hrs of Vital Signs/I&O Vital Signs Date Time Temp Pulse Resp B/P B/P Pulse O2 O2 Flow FiO2 Mean Ox Delivery Rate 0220 98.7 70 20 142/80 91 Room Air 02/ 2250 98.1 63 20 134/68 91 Room Air 02/ 1427 97.7 62 20 120/70 95 02/ 0930 140/80 Intake & Output 02/ 1600 / 0800 02/ 0000 Intake Total 200 400 Output Total 500 Balance 200 -100 Intake, Oral 200 400 Number 1 Bowel Movements Output, Urine 500 Vital Signs Date Time Temp Pulse Resp B/P B/P Pulse O2 O2 Flow FiO2 Mean Ox Delivery Rate 02/ 0620 98.7 70 20 142/80 91 Room Air 02/ 2250 98.1 63 20 134/68 91 Room Air 02/ 1427 97.7 62 20 120/70 95 02/05 0930 140/80 Intake & Output 02/ 1600 02/ 0800 02/06 0000 Intake Total 200 400 Output Total 500 Balance 200 -100 Intake, Oral 200 400 Number 1 Bowel Movements Output, Urine 500 Physical Exam General Appearance: alert, awake, comfortable Neck: normal inspection Respiratory: normal breath sounds Cardiovascular: regular rate/rhythm Abdomen: normal bowel sounds Current Medications: Current Medications Sig/Jennifer Start time Last Medication Dose Route Stop Time Status Admin Acetaminophen 1,000 MG Q6P PRN 07/03 1945 AC N/A 1 UNIT IV Albumin Human 25 GM Q8H 07/04 0500 DC 02/05 IV / 2101 2114 Allopurinol 100 MG DAILY 07/03 1000 AC 07/05 PO 0930 Atorvastatin Calcium 10 MG 1700 07/03 1700 AC 07/05 PO 1704 Carbidopa/Levodopa 1 TAB TID 07/03 1000 AC 07/05 PO 2115 Cyanocobalamin 1,000 MCG DAILY 07/03 1000 AC 07/05 PO 0930 Duloxetine HCl 60 MG 07/05 1000 AC 07/05 PO 0930 Fentanyl Citrate 12 MCG Q72H 07/03 0645 AC 07/06 TOP 0612 Ferrous Sulfate 325 MG DAILY 07/03 1523 AC 07/05 PO 0930 Insulin Aspart 0 AT BEDTIME 07/04 2200 AC SC Insulin Aspart 0 TIDAC 07/04 1200 AC 07/05 SC 1703 Insulin Detemir 6 UNITS BID 07/04 2200 AC 07/05 SC 2115 Levothyroxine Sodium 0.2 MG DAILY AC 07/03 0700 AC 07/06 PO 0607 Lidocaine 1 PAT DAILY 07/03 1000 AC 07/05 EXT 0939 Nadolol 20 MG DAILY 07/03 1000 AC 07/05 PO 0930 Nystatin 1 SANDEEP BID 07/05 1140 AC 07/06 TOP 0629 Omeprazole 40 MG DAILY AC 07/03 0700 AC 07/06 PO 0607 Findings Pertinent Lab/Unruly Results: Laboratory Tests 07/06 0847 Chemistry Sodium Pending Potassium Pending Chloride Pending Carbon Dioxide Pending Anion Gap Pending BUN Pending Creatinine Pending BUN/Creatinine Ratio Pending Hematology CBC w Diff Pending WBC Pending RBC Pending Hgb Pending Hct Pending MCV Pending MCH Pending MCHC Pending RDW Pending Plt Count Pending MPV Pending
[2017-07-06 09:45] LABS: ABSOLUTE BASOPHIL COUNT 0 /CUMM (0.0-0.2); ABSOLUTE EOSINOPHIL COUNT 0.1 /CUMM (0.0-0.7); ABSOLUTE GRANULOCYTE CT 1.6 /CUMM (1.4-6.5); ABSOLUTE LYMPH COUNT 0.7 /CUMM (1.2-3.4); ABSOLUTE MONOCYTE COUNT 0.3 /CUMM (0.10-0.60); BASOPHIL % 0.7 % (0.0-2.0); EOSINOPHIL % 2.8 % (0-5); HEMATOCRIT 25.7 % (37-47); MEAN CORPUSCULAR HGB 31.1 PG (27.0-31.0); MEAN CORPUSCULAR HGB CONC 32.8 G/DL (33.0-37.0); MEAN CORPUSCULAR VOLUME 94.8 FL (81.0-99.0); MEAN PLATELET VOLUME 10.8 FL (7.4-10.4); PLATELET COUNT 64 /CUMM (130-400); RBC DISTRIBUTION WIDTH 18.3 % (11.5-14.5); RED BLOOD CELL CT 2.71 /CUMM (4.20-5.40); WHITE BLOOD CELL COUNT 2.6 /CUMM (4.8-10.8)
[2017-07-06 11:24] VITALS: BP 140/80
--- NOTE | 2017-07-06 13:11 | ECHOCARDIOGRAM REPORT ---
ANGELA LEMOS Age: 81 : 1935 Gender: F Exam Date: 07/05/2017 19:25 Exam Location: [address] [place] [address] Ht (in): 66 Wt (lb): 230 BSA: 2.25 BP: 134 / 70 Ordering Physician: Dorcas Owen MD Referring Physician: Dorcas Owen MD Technologist: Alize Johnson [facility] Room Number: 223-01 Indications: SHORTNESS OF BREATH Rhythm: Sinus Technical Quality: Fair FINDINGS Left Ventricle Normal size left ventricle. No obvious regional wall motion abnormalities. Normal left ventricular ejection fraction estimated at 60-65%. Right Ventricle Right ventricle at upper limits of normal. Right Atrium Normal right atrial size. Left Atrium Mild to moderate left atrial dilatation. Mitral Valve Mitral valve thickened. Mild mitral regurgitation. Aortic Valve Trileaflet aortic valve. Diffuse thickening (sclerosis) of the aortic valve cusps without reduced excursion. No aortic stenosis. No aortic regurgitation. Tricuspid Valve Tricuspid valve not well visualized, grossly normal. Mild-to- moderate tricuspid regurgitation. Right ventricular systolic pressure estimated at 48 mmHg. Pulmonic Valve Pulmonic valve not well visualized, grossly normal. Trace pulmonic regurgitation. Pericardium No pericardial effusion. Great Vessels Aortic root and proximal ascending aorta not well visualized, grossly normal. CONCLUSIONS 1. Mild aortic sclerosis is present with no valvular stenosis or insufficiency. 2. MItral leaflet thickening is present with mild mitral insufficiency with mild to moderate left atrial enlargement. 3. There is no pericardial fluid present. 4. The left ventricualr chamber size and systolic funtion are normal with no resting wall motion abnormalities. 5. The right heart structures appear grossly normal with mild to moderate tricuspid insufficiency and minimal pulmonic insufficiency with an estimated RV systolic pressure of 48 mmHg 6. There appears to be a small left pleural effusion present. Lauren Gimenez M.D. (Electronically Signed) Final Date: 06 July 2017 13:11 MEASUREMENTS (Male / Female) Normal Values 2D ECHO LV Diastolic Diameter PLAX 4.3 cm 4.2 - 5.9 / 3.9 - 5.3 cm LV Systolic Diameter PLAX 2.4 cm 2.1 - 4.0 cm LV Fractional Shortening PLAX 44.2 % 25 - 46 % LV Ejection Fraction 2D Teich 75.7 % IVS Diastolic Thickness 1.1 cm LVPW Diastolic Thickness 1.2 cm LV Relative Wall Thickness 0.5 RV Internal Dim ED PLAX 3.3 cm 1.9 - 3.8 cm LVOT Diameter 2.0 cm Aortic Root Diameter 2.8 cm LA Systolic Diameter LX 4.4 cm 3.0 - 4.0 / 2.7 - 3.8 cm LA Volume 66.0 cm 18 - 58 / 22 - 52 cm Ascending Aorta Diameter 3.6 cm DOPPLER AV Peak Velocity 143.0 cm/s AV Peak Gradient 8.2 mmHg AV Mean Velocity 101.0 cm/s AV Mean Gradient 5.0 mmHg AV Velocity Time Integral 34.4 cm LVOT Peak Velocity 117.0 cm/s LVOT Peak Gradient 5.5 mmHg LVOT Mean Velocity 82.6 cm/s LVOT Mean Gradient 3.0 mmHg LVOT Velocity Time Integral 28.9 cm LVOT Stroke Volume 90.8 cm AV Area Cont Eq vti 2.6 cm AV Area Cont Eq pk 2.6 cm MV Peak Velocity 105.0 cm/s MV Peak Gradient 4.4 mmHg MV Mean Velocity 56.3 cm/s MV Mean Gradient 1.0 mmHg Mitral E Point Velocity 122.0 cm/s Mitral A Point Velocity 58.6 cm/s Mitral E to A Ratio 2.1 MV PHT Velocity 111.0 cm/s MV Deceleration Placer 374.0 cm/s MV Pressure Half Time 89.0 ms MV Area PHT 2.5 cm MV Deceleration Time 169.0 ms TR Peak Velocity 332.0 cm/s TR Peak Gradient 44.1 mmHg Right Atrial Pressure 5.0 mmHg Pulmonary Artery Systolic Pressu 49.1 mmHg Right Ventricular Systolic Press 49.1 mmHg PV Peak Velocity 81.0 cm/s PV Peak Gradient 2.6 mmHg PV Mean Velocity 59.0 cm/s PV Mean Gradient 2.0 mmHg PV Velocity Time Integral 24.0 cm LV E' Lateral Velocity 12.3 cm/s Mitral E to LV E' Lateral Ratio 9.9 LV E' Septal Velocity 4.9 cm/s Mitral E to LV E' Septal Ratio 25.1
[2017-07-06 14:00] VITALS: BP 116/70
--- NOTE | 2017-07-06 16:26 | ULTRASOUND REPORT ---
EXAMINATION: PARACENTESIS CLINICAL INFORMATION: Ascites COMPARISON: Abdominal ultrasound 07/03/2017 TECHNIQUE: Indirect ultrasound guidance using a 6 [place]ian Endm-U-Gnpsqzpy closed needle/catheter system FINDINGS: Informed consent was obtained from the patient prior to the procedure. During this process, the procedure alternatives were explained, along with the intended outcome and benefits. The risks of the procedure, as well as the risk of not doing the procedure, was discussed. The patient was given the opportunity to ask questions regarding the procedure and appeared competent to make medical decisions. A signed consent form which documents this discussion was placed in the medical record. Ultrasound evaluation of the abdomen for ascites was performed. Moderate amount of ascites is noted in the right lower quadrant. The site was marked. A timeout procedure was performed. The area was prepped and draped in usual sterile fashion. Using standard interventional and sterile techniques, lidocaine was used to anesthetize the region. A 6 Algerian Auzv-G-Zpqzyjjp closed needle/catheter system was introduced into the right lower quadrant using standard safety needle technique. Approximately 4 L of light yellow fluid was removed into the Vacutainer bottles. The catheter was then removed. Good hemostasis was achieved. The patient demonstrated immediate symptomatic relief. The patient tolerated the procedure well. A sterile dressing was placed. The patient was discharged from the department in stable condition. COMPLICATIONS: None. IMPRESSION: Successful ultrasound-guided paracentesis yielding 4 L of fluid.
[2017-07-06 22:19] VITALS: BP 122/60
[2017-07-07 06:12] VITALS: BP 126/68
--- NOTE | 2017-07-07 08:14 | PN- Diabetes ---
Assessment/Plan Assessment: This 81-year-old woman has a known history of type 2 diabetes mellitus. She also has chronic renal disease stage III-IV. Apparently she began to notice swelling of her legs and abdomen. She saw her primary care doctor who added Lasix and Aldactone to her regimen. However her creatinine began to rise to 3.5 and she was sent to the emergency room. The patient's renal function is improving with hydration. She also received a blood transfusion. Her hematocrit is now stable. Her creatinine is down to 2.5 today. Presently on Levemir 6 units twice a day as well as sliding scale NovoLog before meals. The patient blood sugars recently were 149 and 143.. The patient's thyroid tests are too high with a free T4 of 2.42 and a TSH of 0.219. Her dose of levothyroxine was reduced to 0.175 mg daily. The patient underwent a paracentesis yesterday and 4 L of ascites was removed. The white blood count is 264 in the peritoneal fluid. Plan: Findings in the peritoneal fluid are suspicious for SBP. This needs to be addressed further. The patient's blood sugars are in a satisfactory range. I would continue the present doses of insulin. Subjective Subjective: Feels about the same Review of Systems Constitutional: Denies: chills, fever. Cardiovascular: Denies: chest pain. Respiratory: Denies: short of breath. Gastrointestinal: Reports: bloating. Skin: Reports: no symptoms. Objective Last 24 Hrs of Vital Signs/I&O Vital Signs Date Time Temp Pulse Resp B/P B/P Pulse O2 O2 Flow FiO2 Mean Ox Delivery Rate 07/07 611 98.6 63 20 126/68 95 Room Air 07/069 98.2 64 18 122/60 95 07/06 1400 98.0 60 20 116/70 92 Room Air 07/06 1124 98.1 67 20 140/80 92 Room Air 07/06 0900 70 142/80 Intake & Output 07/07 1600 0207 0800 02/ 0000 Intake Total 860 700 Output Total Balance 860 700 Intake, IV 500 Intake, Oral 360 700 Vital Signs Date Time Temp Pulse Resp B/P B/P Pulse O2 O2 Flow FiO2 Mean Ox Delivery Rate 07/07 611 98.6 63 20 126/68 95 Room Air 07/06 2219 98.2 64 18 122/60 95 02/06 1400 98.0 60 20 116/70 92 Room Air 02/ 1124 98.1 67 20 140/80 92 Room Air 02/ 0900 70 142/80 Intake & Output 07/07 1600 02/07 0800 / 0000 Intake Total 860 700 Output Total Balance 860 700 Intake, IV 500 Intake, Oral 360 700 Physical Exam General Appearance: alert, awake, anxious Head: normal appearance Respiratory: normal breath sounds Cardiovascular: regular rate/rhythm Abdomen: distention Current Medications: Current Medications Sig/Jennifer Start time Last Medication Dose Route Stop Time Status Admin Acetaminophen 1,000 MG Q6P PRN 07/03 1945 AC N/A 1 UNIT IV Albumin Human 25 GM Q8H 07/06 1445 AC 07/07 IV 0615 Allopurinol 100 MG DAILY 07/03 1000 AC 07/06 PO 0859 Atorvastatin Calcium 10 MG 1700 07/03 1700 AC 07/06 PO 1625 Carbidopa/Levodopa 1 TAB TID 07/03 1000 AC 07/06 PO 2051 Cyanocobalamin 1,000 MCG DAILY 07/03 1000 AC 07/06 PO 0859 Duloxetine HCl 60 MG 07/05 1000 AC 07/05 PO 0930 Fentanyl Citrate 12 MCG Q72H 07/03 0645 AC 07/06 TOP 06 Ferrous Sulfate 325 MG DAILY 07/03 1523 AC 07/06 PO 0859 Insulin Aspart 0 AT BEDTIME 07/04 2200 AC SC Insulin Aspart 0 TIDAC 07/04 1200 AC 07/06 SC 1802 Insulin Detemir 6 UNITS BID 07/04 2200 AC 07/06 SC 2052 Levothyroxine Sodium 0.175 MG DAILY AC 07/07 0700 AC 07/07 PO 0615 Levothyroxine Sodium 0.2 MG DAILY AC 07/03 0700 DC 07/06 PO 0607 Lidocaine 20 ML .STK-MED ONE 07/06 1050 DC IM 07/06 1051 Lidocaine 1 PAT DAILY 07/03 1000 AC 07/06 EXT 0858 Nadolol 20 MG DAILY 07/03 1000 AC 07/06 PO 0900 Nystatin 1 SANDEEP BID 05 1140 AC 07/06 TOP 2053 Omeprazole 40 MG DAILY AC 07/03 0700 AC 07/07 PO 0615 Sodium Chloride 1,000 ML Q20H 07/06 1500 AC IV Sodium Chloride 1,000 ML Q10H 07/06 1030 DC 07/06 IV 1128 Findings Pertinent Lab/Unruly Results: Laboratory Tests 07/06 07/06 07/06 1005 1005 0847 Chemistry Sodium (137 - 145 mmol/L) 145 Potassium (3.5 - 5.1 mmol/L) 4.3 Chloride (98 - 107 mmol/L) 103 Carbon Dioxide (22 - 30 mmol/L) 27 Anion Gap (5 - 16) 15 BUN (7 - 17 mg/dL) 55 H Creatinine (0.5 - 1.0 mg/dL) 2.5 H Estimated GFR (>60 ml/min) 19 L BUN/Creatinine Ratio (7 - 25 %) 22.0 Albumin (3.5 - 5.0 g/dL) 3.9 Hematology CBC w Diff NO MAN DIFF REQ WBC (4.8 - 10.8 /CUMM) 2.6 L RBC (4.20 - 5.40 /CUMM) 2.71 L Hgb (12.0 - 16.0 G/DL) 8.4 L Hct (37 - 47 %) 25.7 L MCV (81.0 - 99.0 FL) 94.8 MCH (27.0 - 31.0 PG) 31.1 H MCHC (33.0 - 37.0 G/DL) 32.8 L RDW (11.5 - 14.5 %) 18.3 H Plt Count (130 - 400 /CUMM) 64 L MPV (7.4 - 10.4 FL) 10.8 H Gran % (42.2 - 75.2 %) 61.0 Lymphocytes % (20.5 - 51.1 %) 25.3 Monocytes % (1.7 - 9.3 %) 10.2 H Eosinophils % (0 - 5 %) 2.8 Basophils % (0.0 - 2.0 %) 0.7 Absolute Granulocytes (1.4 - 6.5 /CUMM) 1.6 Absolute Lymphocytes (1.2 - 3.4 /CUMM) 0.7 L Lymphocytes (%) 15 Absolute Monocytes (0.10 - 0.60 /CUMM) 0.3 Absolute Eosinophils (0.0 - 0.7 /CUMM) 0.1 Absolute Basophils (0.0 - 0.2 /CUMM) 0 % Normal PMNs (%) 3 Other Body Source Fluid WBC (0 - 5 /CUMM) 264 H Fld Mesothelial Cells (%) 82 Fld Total RBCs Counted (0 /CUMM) 1287 H Fluid Albumin (g/dL) 1.6
[2017-07-07 09:04] LABS: ABSOLUTE BASOPHIL COUNT 0 /CUMM (0.0-0.2); ABSOLUTE EOSINOPHIL COUNT 0 /CUMM (0.0-0.7); ABSOLUTE GRANULOCYTE CT 1.2 /CUMM (1.4-6.5); ABSOLUTE LYMPH COUNT 0.6 /CUMM (1.2-3.4); ABSOLUTE MONOCYTE COUNT 0.2 /CUMM (0.10-0.60); BASOPHIL % 0.6 % (0.0-2.0); EOSINOPHIL % 0.9 % (0-5); GRANULOCYTE % 59.9 % (42.2-75.2); HEMATOCRIT 25.9 % (37-47); MEAN CORPUSCULAR HGB 30.9 PG (27.0-31.0); MEAN CORPUSCULAR HGB CONC 32.3 G/DL (33.0-37.0); MEAN CORPUSCULAR VOLUME 95.4 FL (81.0-99.0); MEAN PLATELET VOLUME 10.8 FL (7.4-10.4); PLATELET COUNT 58 /CUMM (130-400); RBC DISTRIBUTION WIDTH 17.6 % (11.5-14.5); RED BLOOD CELL CT 2.72 /CUMM (4.20-5.40); WHITE BLOOD CELL COUNT 2.1 /CUMM (4.8-10.8)
--- NOTE | 2017-07-07 09:14 | PN- Housestaff ---
Catalina PEREZ,Darius 07/07/17912: Subjective Follow-up For: JOHN, anemia, cirrhosis secondary to S[place], portal hypertension gastropathy Subjective: no overnight events, s/p paracentesis, abdominal distention Review of Systems Constitutional: Reports: see HPI. Objective Last 24 Hrs of Vital Signs/I&O Vital Signs Date Time Temp Pulse Resp B/P B/P Pulse O2 O2 Flow FiO2 Mean Ox Delivery Rate 07/07 1444 96.9 60 20 130/70 97 07/07 0920 63 126/68 07/07 0612 98.6 63 20 126/68 95 Room Air 07/06 2219 98.2 64 18 122/60 95 Intake & Output 07/07 1600 07/07 0800 07/07 0000 Intake Total 860 860 700 Output Total Balance 860 860 700 Intake, IV 500 Intake, Oral 860 360 700 Number 1 Bowel Movements Patient 104.326 kg Weight Physical Exam General Appearance: Alert, Oriented X3, Cooperative, No Acute Distress Cardiovascular: Regular Rate, Normal S1, Normal S2, No Murmurs Lungs: Clear to Auscultation, Normal Air Movement Abdomen: Normal Bowel Sounds, Soft, No Tenderness, No Masses Extremities: No Clubbing, No Cyanosis, No Edema, Normal Pulses Current Medications: Current Medications Sig/Jennifer Start time Last Medication Dose Route Stop Time Status Admin Acetaminophen 1,000 MG Q6P PRN 07/03 1945 AC N/A 1 UNIT IV Albumin Human 25 GM Q8H 07/06 1445 DC / IV 0615 Allopurinol 100 MG DAILY 07/03 1000 AC 07/07 PO 0920 Atorvastatin Calcium 10 MG 1700 07/03 1700 AC 07/07 PO 1706 Carbidopa/Levodopa 1 TAB TID 07/03 1000 AC / PO 2105 Cyanocobalamin 1,000 MCG DAILY 07/03 1000 AC 07/07 PO 0920 Duloxetine HCl 60 MG 07/05 1000 AC 07/07 PO 0920 Fentanyl Citrate 12 MCG Q72H 07/03 0645 AC 07/06 TOP 0612 Ferrous Sulfate 325 MG DAILY / 1523 AC 07/07 PO 0920 Insulin Aspart 0 AT BEDTIME 07/04 2200 AC SC Insulin Aspart 0 TIDAC 07/04 1200 AC 07/07 SC 1804 Insulin Detemir 6 UNITS BID 02/04 2200 AC 07/07 SC 2105 Levothyroxine Sodium 0.175 MG DAILY AC 07/07 0700 AC 07/07 PO 0615 Lidocaine 1 PAT DAILY 07/03 1000 AC 07/07 EXT 0921 Nadolol 20 MG DAILY 07/03 1000 AC 07/07 PO 0920 Nystatin 1 SANDEEP BID 07/05 1140 AC 07/07 TOP 2105 Omeprazole 40 MG DAILY AC 07/03 0700 AC 07/07 PO 0615 Sodium Chloride 1,000 ML Q20H 07/06 1500 DC IV Last 24 Hrs of Lab/Unruly Results Last 24 Hrs of Labs/Mics: Laboratory Tests 07/07/17 0755: Anion Gap 13, Estimated GFR 20 L, BUN/Creatinine Ratio 20.9, CBC w Diff NO MAN DIFF REQ, RBC 2.72 L, MCV 95.4, MCH 30.9, MCHC 32.3 L, RDW 17.6 H, MPV 10.8 H, Gran % 59.9, Lymphocytes % 27.5, Monocytes % 11.1 H, Eosinophils % 0.9, Basophils % 0.6, Absolute Granulocytes 1.2 L, Absolute Lymphocytes 0.6 L, Absolute Monocytes 0.2, Absolute Eosinophils 0, Absolute Basophils 0 Assessment/Plan Assessment: 81 years old woman w/ multiple comorbidities was admitted for JOHN most possibly secondary to HRS, acute on chronic blood loss, uncontrolled DM and portal HTN complication ( low PLT, varceal I-II, and gastropathy). She is being evaluated and treated for following conditions #JOHN likely secondary to prerenal azotemia (diuretics use) in setting of severe CKD stage IV secondary to diabetes mellitus and hypertension -D/C albumin and intravenous fluids -hold diuretics -Cr function improving slowly -continue to trend renal function #Ascites -Theraputic paracentesis -F/U cell count and albumin, calculate SAAG -borderline PMN count -monitoring off antiobiotics for SBP #History of SORIA cirrhosis, esophageal varices, portal hypertension gastropathy -Continue nadolol as bp tolerates and titrate to HR of 55-60 -appreciate GI recommendations #Acute on chronic anemia status post 1 unit PRBC, H/H stable Pt's bleeding is from occult bleeding from her portal hypertensive gastropathy. No endoscopic intervention is necessary at this time as per GI -Continue oral iron supplementation -maintain Hgb at 8- avoid transfusion as much as possible as it increases the risk os variceal bleeding -Echocardiogram : pending #Thrombocytopenia likely secondary to SORIA cirrhosis -Continue to monitor Platelet count relatively stable -DVT prophylaxis with ALPS only #Hypothyroidism free T4 2.42, TSH 0.219 -Reduce levothyroxine to 0.175 mg daily. #DM -Presently on Levemir 6 units twice a day as well as sliding scale NovoLog before meals. -continue accuchecks tidac NPO/ DVT ppx-mechanical only ALPS in setting of thrombocytopenia Full code Problem List: 1. Acute kidney failure 2. Thrombocytopenia 3. GI bleed 4. Anemia 5. Portal hypertension 6. Hypertension 7. Dyslipidemia 8. Diabetes Pain Ratin Pain Location: abdominal Pain Goal: Pain 4 or less Pain Plan: prn Tomorrow's Labs & Rationales: cbc, bep Fela Matias MD 07/07/17 1357: Attending MD Review Statement Attending Statement Attending MD Statement: examined this patient, discuss w/resident/PA/CROZER OPERATOR, agreed w/resident/PA/CROZER OPERATOR, reviewed EMR data (avail) Attending Assessment/Plan: No complaints today. Renal function continues to improve. Plan - Continue on general medicine - Discontinue albumin and IV fluids - Continue home medications - Continue to hold diuretics - Follow GI and nephrology recommendations - DVT PPx - Anticipated discharge tomorrow pending recommendations on diuretics from nephrology
--- NOTE | 2017-07-07 13:07 | PN- Gastroenterology ---
Assessment/Plan Assessment/Recommendations: Assessment: Ms. Luna is an 81 year old female with a history of SORIA/cirrhosis who presented to 4 days ago with worsening renal function which is likely secondary to pre-renal azotemia from the diuretics she was started on a few weeks ago for anasarca as well as the nsaids she was taking. She has had some improvement in her renal function with volume expansion with albumin and holding nsaids, but her GFR is still quite low. She underwent a paracentesis yesterday with the removal of 4 liters of ascitic fluid which was negative for SBP and her SAAG was > 1.1 indicating the fluid is from portal hypertension. Recommendatons: 1. Low sodium diet as tolerated 2. Follow daily renal function and lytes 3. Follow up renal recommendations 4. Continue to hold diuretics for now 5. Continue nadolol as bp tolerates and titrate to HR of 55-60 (HR around 60 on 20mg daily) 6. Continue oral iron supplementation 7. Notify GI for signs of overt GI bleeding 8. Avoid NSAIDs and she and her son were told that she should not be taking them for pain I will continue to follow this patient and make further recommendations based on her clinical course and results of repeat blood work and imaging. Problem List: 1. Anemia 2. Cirrhosis 3. Volume overload Subjective Subjective: pt s/p paracentesis yesterday with 4 liters of fluid removed. some improvement in her abdominal discomfort with the paracentesis. Objective Vital Signs and I&Os Vital Signs Date Time Temp Pulse Resp B/P B/P Pulse O2 O2 Flow FiO2 Mean Ox Delivery Rate 07/07 0920 63 126/68 07/07 0612 98.6 63 20 126/68 95 Room Air 07/06 2219 98.2 64 18 122/60 95 / 1400 98.0 60 20 116/70 92 Room Air Intake & Output 07/07 1600 07/07 0400 07/06 1600 07/06 0400 07/05 1600 07/05 0400 Intake Total 860 700 740 400 680 700 Output Total 500 Balance 860 700 740 -100 680 700 Intake, IV 500 300 120 Intake, Oral 360 700 440 400 560 700 Number 0 1 1 Bowel Movements Output, Urine 500 Patient 230 lb Weight Physical Exam General Appearance: well developed/nourished, no apparent distress, comfortable Head: atraumatic, normal appearance Neck: normal inspection, supple Respiratory: normal breath sounds, chest non-tender Cardiovascular: regular rate/rhythm Abdomen: normal bowel sounds, soft, distention, distension improved Back: normal inspection Neurologic/Psychiatric: no motor/sensory deficits, awake, alert, oriented x 3 Skin: intact, normal color Current Medications: Current Medications Sig/Jennifer Start time Last Medication Dose Route Stop Time Status Admin Acetaminophen 1,000 MG Q6P PRN 07/03 1945 AC N/A 1 UNIT IV Albumin Human 25 GM Q8H 07/06 1445 DC 07/07 IV 0615 Allopurinol 100 MG DAILY 07/03 1000 AC 07/07 PO 0920 Atorvastatin Calcium 10 MG 1700 07/03 1700 AC 07/06 PO 1625 Carbidopa/Levodopa 1 TAB TID 07/03 1000 AC 07/07 PO 0920 Cyanocobalamin 1,000 MCG DAILY 07/03 1000 AC 07/07 PO 0920 Duloxetine HCl 60 MG 07/05 1000 AC 07/07 PO 0920 Fentanyl Citrate 12 MCG Q72H 07/03 0645 AC 07/06 TOP 0612 Ferrous Sulfate 325 MG DAILY 07/03 1523 AC 07/07 PO 0920 Insulin Aspart 0 AT BEDTIME 07/04 2200 AC SC Insulin Aspart 0 TIDAC 07/04 1200 AC 07/07 SC 0919 Insulin Detemir 6 UNITS BID 07/04 2200 AC 07/07 SC 0919 Levothyroxine Sodium 0.175 MG DAILY AC 07/07 0700 AC 07/07 PO 0615 Lidocaine 1 PAT DAILY 07/03 1000 AC 07/07 EXT 0921 Nadolol 20 MG DAILY 07/03 1000 AC 07/07 PO 0920 Nystatin 1 SANDEEP BID 07/05 1140 AC 07/07 TOP 0922 Omeprazole 40 MG DAILY AC 07/03 0700 AC 07/07 PO 0615 Sodium Chloride 1,000 ML Q20H / 1500 DC IV Sodium Chloride 1,000 ML Q10H / 1030 DC 07/06 IV 1128 Results Pertinent Lab Results: Laboratory Tests 07/07 07/06 02 0755 1005 1005 Chemistry Sodium (137 - 145 mmol/L) 144 Potassium (3.5 - 5.1 mmol/L) 4.3 Chloride (98 - 107 mmol/L) 105 Carbon Dioxide (22 - 30 mmol/L) 27 Anion Gap (5 - 16) 13 BUN (7 - 17 mg/dL) 48 H Creatinine (0.5 - 1.0 mg/dL) 2.3 H Estimated GFR (>60 ml/min) 20 L BUN/Creatinine Ratio (7 - 25 %) 20.9 Hematology CBC w Diff NO MAN DIFF REQ WBC (4.8 - 10.8 /CUMM) 2.1 L RBC (4.20 - 5.40 /CUMM) 2.72 L Hgb (12.0 - 16.0 G/DL) 8.4 L Hct (37 - 47 %) 25.9 L MCV (81.0 - 99.0 FL) 95.4 MCH (27.0 - 31.0 PG) 30.9 MCHC (33.0 - 37.0 G/DL) 32.3 L RDW (11.5 - 14.5 %) 17.6 H Plt Count (130 - 400 /CUMM) 58 L MPV (7.4 - 10.4 FL) 10.8 H Gran % (42.2 - 75.2 %) 59.9 Lymphocytes % (20.5 - 51.1 %) 27.5 Monocytes % (1.7 - 9.3 %) 11.1 H Eosinophils % (0 - 5 %) 0.9 Basophils % (0.0 - 2.0 %) 0.6 Absolute Granulocytes (1.4 - 6.5 /CUMM) 1.2 L Absolute Lymphocytes (1.2 - 3.4 /CUMM) 0.6 L Lymphocytes (%) 15 Absolute Monocytes (0.10 - 0.60 /CUMM) 0.2 Absolute Eosinophils (0.0 - 0.7 /CUMM) 0 Absolute Basophils (0.0 - 0.2 /CUMM) 0 % Normal PMNs (%) 3 Other Body Source Fluid WBC (0 - 5 /CUMM) 264 H Fld Mesothelial Cells (%) 82 Fld Total RBCs Counted (0 /CUMM) 1287 H Fluid Albumin (g/dL) 1.6 02/06 02/05 0847 0810 Chemistry Sodium (137 - 145 mmol/L) 145 144 Potassium (3.5 - 5.1 mmol/L) 4.3 4.2 Chloride (98 - 107 mmol/L) 103 99 Carbon Dioxide (22 - 30 mmol/L) 27 28 Anion Gap (5 - 16) 15 16 BUN (7 - 17 mg/dL) 55 H 58 H Creatinine (0.5 - 1.0 mg/dL) 2.5 H 2.8 H Estimated GFR (>60 ml/min) 19 L 16 L BUN/Creatinine Ratio (7 - 25 %) 22.0 20.7 Albumin (3.5 - 5.0 g/dL) 3.9 TSH (0.270 - 4.200 uIU/mL) 0.219 L Free T4 (0.85 - 1.93 ng/dL) 2.42 H Hematology CBC w Diff NO MAN DIFF REQ NO MAN DIFF REQ WBC (4.8 - 10.8 /CUMM) 2.6 L 2.5 L RBC (4.20 - 5.40 /CUMM) 2.71 L 2.78 L Hgb (12.0 - 16.0 G/DL) 8.4 L 8.7 L Hct (37 - 47 %) 25.7 L 26.4 L MCV (81.0 - 99.0 FL) 94.8 95.2 MCH (27.0 - 31.0 PG) 31.1 H 31.3 H MCHC (33.0 - 37.0 G/DL) 32.8 L 32.8 L RDW (11.5 - 14.5 %) 18.3 H 18.7 H Plt Count (130 - 400 /CUMM) 64 L 62 L MPV (7.4 - 10.4 FL) 10.8 H 10.3 Gran % (42.2 - 75.2 %) 61.0 61.2 Lymphocytes % (20.5 - 51.1 %) 25.3 25.7 Monocytes % (1.7 - 9.3 %) 10.2 H 10.4 H Eosinophils % (0 - 5 %) 2.8 1.9 Basophils % (0.0 - 2.0 %) 0.7 0.8 Absolute Granulocytes (1.4 - 6.5 /CUMM) 1.6 1.5 Absolute Lymphocytes (1.2 - 3.4 /CUMM) 0.7 L 0.6 L Absolute Monocytes (0.10 - 0.60 /CUMM) 0.3 0.3 Absolute Eosinophils (0.0 - 0.7 /CUMM) 0.1 0 Absolute Basophils (0.0 - 0.2 /CUMM) 0 0 07/05 07/04 0758 1725 Chemistry TSH Cancelled Free T4 Cancelled Hematology CBC w Diff NO MAN DIFF REQ WBC (4.8 - 10.8 /CUMM) 3.0 L RBC (4.20 - 5.40 /CUMM) 2.86 L Hgb (12.0 - 16.0 G/DL) 8.9 L Hct (37 - 47 %) 26.8 L MCV (81.0 - 99.0 FL) 93.6 MCH (27.0 - 31.0 PG) 31.1 H MCHC (33.0 - 37.0 G/DL) 33.2 RDW (11.5 - 14.5 %) 18.7 H Plt Count (130 - 400 /CUMM) 65 L MPV (7.4 - 10.4 FL) 10.1 Gran % (42.2 - 75.2 %) 62.0 Lymphocytes % (20.5 - 51.1 %) 24.9 Monocytes % (1.7 - 9.3 %) 9.9 H Eosinophils % (0 - 5 %) 2.7 Basophils % (0.0 - 2.0 %) 0.5 Absolute Granulocytes (1.4 - 6.5 /CUMM) 1.8 Absolute Lymphocytes (1.2 - 3.4 /CUMM) 0.7 L Absolute Monocytes (0.10 - 0.60 /CUMM) 0.3 Absolute Eosinophils (0.0 - 0.7 /CUMM) 0.1 Absolute Basophils (0.0 - 0.2 /CUMM) 0 Imaging/Other Studies: SERVICE DATE: 07/06/17 EXAM TYPE: US - US-PARACENTESIS EXAMINATION: PARACENTESIS CLINICAL INFORMATION: Ascites COMPARISON: Abdominal ultrasound 07/03/2017 TECHNIQUE: Indirect ultrasound guidance using a 6 [place] [id number]-[id number] closed needle/catheter system FINDINGS: Informed consent was obtained from the patient prior to the procedure. During this process, the procedure alternatives were explained, along with the intended outcome and benefits. The risks of the procedure, as well as the risk of not doing the procedure, was discussed. The patient was given the opportunity to ask questions regarding the procedure and appeared competent to make medical decisions. A signed consent form which documents this discussion was placed in the medical record. Ultrasound evaluation of the abdomen for ascites was performed. Moderate amount of ascites is noted in the right lower quadrant. The site was marked. A timeout procedure was performed. The area was prepped and draped in usual sterile fashion. Using standard interventional and sterile techniques, lidocaine was used to anesthetize the region. A 6 [place] [id number]-[id number] closed needle/catheter system was introduced into the right lower quadrant using standard safety needle technique. Approximately 4 L of light yellow fluid was removed into the Vacutainer bottles. The catheter was then removed. Good hemostasis was achieved. The patient demonstrated immediate symptomatic relief. The patient tolerated the procedure well. A sterile dressing was placed. The patient was discharged from the department in stable condition. COMPLICATIONS: None. IMPRESSION: Successful ultrasound-guided paracentesis yielding 4 L of fluid.
[2017-07-07 14:44] VITALS: BP 130/70
[2017-07-07 22:39] VITALS: BP 152/70
--- NOTE | 2017-07-08 06:49 | PN- Housestaff ---
Catalina PEREZ,Darius 07/08/17 0648: Subjective Follow-up For: JOHN cirrhosis/ascites Subjective: no new complaints, lower extremity edema and abdominal fluid improved after paracentesis Review of Systems Constitutional: Reports: see HPI. Objective Last 24 Hrs of Vital Signs/I&O Vital Signs Date Time Temp Pulse Resp B/P B/P Pulse O2 O2 Flow FiO2 Mean Ox Delivery Rate 07/08 1403 97.8 67 20 148/80 95 07/08 0822 160/70 07/08 0736 98.5 65 20 132/78 97 Room Air 07/07 2239 98.3 60 20 152/70 98 Room Air Intake & Output 07/08 1600 07/08 0800 02/08 0000 Intake Total 900 250 700 Output Total Balance 900 250 700 Intake, IV 10 Intake, Oral 900 240 700 Physical Exam General Appearance: Alert, Oriented X3, Cooperative, No Acute Distress Cardiovascular: Regular Rate, Normal S1, Normal S2, No Murmurs Lungs: Clear to Auscultation Abdomen: Normal Bowel Sounds, Soft, No Tenderness, No Masses, + ascites Extremities: No Clubbing, No Cyanosis, mild b/l LE edema Current Medications: Current Medications Sig/Jennifer Start time Last Medication Dose Route Stop Time Status Admin Acetaminophen 1,000 MG Q6P PRN 07/03 1945 DCD N/A 1 UNIT IV Allopurinol 100 MG DAILY 07/03 1000 DCD 02/ PO 0821 Atorvastatin Calcium 10 MG 1700 02/ 1700 DCD 02/ PO 1706 Carbidopa/Levodopa 1 TAB TID 07/03 1000 DCD 02/08 PO 0821 Cyanocobalamin 1,000 MCG DAILY 07/03 1000 DCD 02/ PO 0821 Duloxetine HCl 60 MG 07/05 1000 DCD 02/ PO 0920 Fentanyl Citrate 12 MCG ONE TIME ONE 07/08 1230 DC 02 TOP 07/08 1231 1233 Fentanyl Citrate 12 MCG Q72H 07/03 0645 DCD 07/06 TOP 0612 Ferrous Sulfate 325 MG DAILY 07/03 1523 DCD 02/ PO 0821 Insulin Aspart 0 AT BEDTIME 07/04 2200 DCD SC Insulin Aspart 0 TIDAC 07/04 1200 DCD 07/08 SC 1230 Insulin Detemir 6 UNITS BID 07/04 2200 DCD 02 SC 0821 Levothyroxine Sodium 0.175 MG DAILY AC 07/07 0700 DCD 07/08 PO 0609 Lidocaine 1 PAT DAILY 07/03 1000 DCD 07/08 EXT 0822 Nadolol 20 MG DAILY 07/03 1000 DCD 07/08 PO 0822 Nystatin 1 SANDEEP BID 07/05 1140 DCD 07/08 TOP 0821 Omeprazole 40 MG DAILY AC 07/03 0700 DCD 07/08 PO 0609 Last 24 Hrs of Lab/Unruly Results Last 24 Hrs of Labs/Mics: Laboratory Tests 07/08/17 0841: Anion Gap 13, Estimated GFR 24 L, BUN/Creatinine Ratio 22.5, CBC w Diff NO MAN DIFF REQ, RBC 2.95 L, MCV 95.5, MCH 31.3 H, MCHC 32.8 L, RDW 18.0 H, MPV 10.3, Gran % 61.8, Lymphocytes % 25.4, Monocytes % 8.6, Eosinophils % 3.1, Basophils % 1.1, Absolute Granulocytes 1.8, Absolute Lymphocytes 0.8 L, Absolute Monocytes 0.3, Absolute Eosinophils 0.1, Absolute Basophils 0 Assessment/Plan Assessment: 81 years old woman w/ multiple comorbidities was admitted for JOHN most possibly secondary to HRS, acute on chronic blood loss, uncontrolled DM and portal HTN complication ( low PLT, varceal I-II, and gastropathy). 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 -D/C albumin and intravenous fluids -hold diuretics -Cr function improving slowly -continue to trend renal function -discuss discharge medications with nephrology #Ascites -s/p theraputic paracentesis -F/U cell count and albumin, high SAAG consistent with portal hypertension -borderline PMN count -monitoring off antibiotics for SBP #History of SORIA cirrhosis, esophageal varices, portal hypertension gastropathy -Continue nadolol as bp tolerates and titrate to HR of 55-60 -appreciate GI recommendations #Acute on chronic anemia status post 1 unit PRBC, H/H stable Pt's bleeding is from occult bleeding from her portal hypertensive gastropathy. 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 #DM -Presently on Levemir 6 units bid -novolog sliding scale insulin -continue accuchecks tidac low sodium diet DVT ppx-mechanical only ALPS in setting of thrombocytopenia Full code Problem List: 1. Thrombocytopenia 2. Acute kidney failure 3. Anemia 4. Portal hypertension 5. Hypertension 6. Dyslipidemia 7. Diabetes 8. Hypothyroid 9. Cirrhosis 10. Volume overload 11. Acute kidney injury Pain Ratin Pain Location: low back Pain Goal: Pain 4 or less Pain Plan: fentanyl lidoderm patch Tomorrow's Labs & Rationales: none, discharge Fela Matias MD 07/08/17 1423: Attending MD Review Statement Attending Statement Attending MD Statement: examined this patient, discuss w/resident/PA/HAND SCRAPER, agreed w/resident/PA/HAND SCRAPER, reviewed EMR data (avail) Attending Assessment/Plan: No complaints today. Renal function continues to improve. Plan - Stable for discharge home - Per nephrology continue Aldactone - Continue home medications - Outpatient nephrology and GI follow up
[2017-07-08 07:36] VITALS: BP 132/78
--- NOTE | 2017-07-08 08:15 | PN- Diabetes ---
Assessment/Plan Assessment: This 81-year-old woman has a known history of type 2 diabetes mellitus. She also has chronic renal disease stage III-IV. Apparently she began to notice swelling of her legs and abdomen. She saw her primary care doctor who added Lasix and Aldactone to her regimen. However her creatinine began to rise to 3.5 and she was sent to the emergency room. The patient's renal function is improving with hydration. She also received a blood transfusion. Her hematocrit is now stable. Her creatinine is down to 2.3 YESTERDAYtoday. Presently on Levemir 6 units twice a day as well as sliding scale NovoLog before meals. The patient blood sugars ARE in good control.. The patient's thyroid tests are too high with a free T4 of 2.42 and a TSH of 0.219. Her dose of levothyroxine was reduced to 0.175 mg daily. The patient underwent a paracentesis during this admission and 4 L of ascites was removed. The white blood count is 264 in the peritoneal fluid. The patient has evidence of pancytopenia. 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 Plan: Suggest continue the same insulin. Consider hematology consult for pancytopenia which could be related to hypersplenism in view of her liver disease. Subjective Subjective: Still has poor appetite Review of Systems Constitutional: Denies: chills, fever. Cardiovascular: Denies: chest pain. Respiratory: Denies: short of breath. Gastrointestinal: Reports: distention. Objective Last 24 Hrs of Vital Signs/I&O Vital Signs Date Time Temp Pulse Resp B/P B/P Pulse O2 O2 Flow FiO2 Mean Ox Delivery Rate 07/08 735 98.5 65 20 132/78 97 Room Air 07/07 2238 98.3 60 20 152/70 98 Room Air 07/07 1444 96.9 60 20 130/70 97 07/07 0920 63 126/68 Intake & Output 07/08 1600 08 0800 0208 0000 Intake Total 250 700 Output Total Balance 250 700 Intake, IV 10 Intake, Oral 240 700 Vital Signs Date Time Temp Pulse Resp B/P B/P Pulse O2 O2 Flow FiO2 Mean Ox Delivery Rate 07/08 735 98.5 65 20 132/78 97 Room Air 07/079 98.3 60 20 152/70 98 Room Air 07/07 1444 96.9 60 20 130/70 97 02/07 0920 63 126/68 Intake & Output 07/08 1600 02 0800 02/08 0000 Intake Total 250 700 Output Total Balance 250 700 Intake, IV 10 Intake, Oral 240 700 Physical Exam General Appearance: alert, awake, comfortable Head: normal appearance Neck: normal inspection Respiratory: normal breath sounds Cardiovascular: regular rate/rhythm Abdomen: distention Current Medications: Current Medications Sig/Jennifer Start time Last Medication Dose Route Stop Time Status Admin Acetaminophen 1,000 MG Q6P PRN 07/03 1945 AC N/A 1 UNIT IV Albumin Human 25 GM Q8H 07/06 1445 DC 07/07 IV 0615 Allopurinol 100 MG DAILY 07/03 1000 AC 07/07 PO 0920 Atorvastatin Calcium 10 MG 1700 07/03 1700 AC 07/07 PO 1706 Carbidopa/Levodopa 1 TAB TID 07/03 1000 AC 07/07 PO 2105 Cyanocobalamin 1,000 MCG DAILY 07/03 1000 AC 07/07 PO 0920 Duloxetine HCl 60 MG 07/05 1000 AC 07/07 PO 0920 Fentanyl Citrate 12 MCG Q72H 07/03 0645 AC 07/06 TOP 0612 Ferrous Sulfate 325 MG DAILY 07/03 1523 AC 07/07 PO 0920 Insulin Aspart 0 AT BEDTIME 07/04 2200 AC SC Insulin Aspart 0 TIDAC 07/04 1200 AC 07/07 SC 1804 Insulin Detemir 6 UNITS BID 07/04 2200 AC 07/07 SC 2105 Levothyroxine Sodium 0.175 MG DAILY AC 07/07 0700 AC 07/08 PO 0609 Lidocaine 1 PAT DAILY 07/03 1000 AC 07/07 EXT 0921 Nadolol 20 MG DAILY 07/03 1000 AC 07/07 PO 0920 Nystatin 1 SANDEEP BID 07/05 1140 AC 07/07 TOP 2105 Omeprazole 40 MG DAILY AC 07/03 0700 AC 07/08 PO 0609 Sodium Chloride 1,000 ML Q20H 07/06 1500 DC IV
[2017-07-08 09:06] LABS: ABSOLUTE BASOPHIL COUNT 0 /CUMM (0.0-0.2); ABSOLUTE EOSINOPHIL COUNT 0.1 /CUMM (0.0-0.7); ABSOLUTE GRANULOCYTE CT 1.8 /CUMM (1.4-6.5); ABSOLUTE LYMPH COUNT 0.8 /CUMM (1.2-3.4); ABSOLUTE MONOCYTE COUNT 0.3 /CUMM (0.10-0.60); BASOPHIL % 1.1 % (0.0-2.0); EOSINOPHIL % 3.1 % (0-5); GRANULOCYTE % 61.8 % (42.2-75.2); HEMATOCRIT 28.2 % (37-47); MEAN CORPUSCULAR HGB 31.3 PG (27.0-31.0); MEAN CORPUSCULAR HGB CONC 32.8 G/DL (33.0-37.0); MEAN CORPUSCULAR VOLUME 95.5 FL (81.0-99.0); MEAN PLATELET VOLUME 10.3 FL (7.4-10.4); RED BLOOD CELL CT 2.95 /CUMM (4.20-5.40)
[2017-07-08] MEDS ORDERED: SYNTHROID175 MCG PO ×2 (11:04→11:28)
[2017-07-08] MEDS ORDERED: LIDODERM1 EACH TOP ×2 (11:10→11:28)
[2017-07-08] MEDS ORDERED: DURAGESIC1 EAC1 TOP ×2 (11:10→11:28)
[2017-07-08 11:14] LABS: PLATELET COUNT 74 /CUMM (130-400)
--- NOTE | 2017-07-08 11:51 | Patient Discharge Instructions ---
Discharge Instructions General Discharge Information You were seen/treated for: Acute kidney injury/fluid overload Cirrhosis/ascites Special Instructions: Follow up with your primary care physician. Please follow up with Dr. Warner within 1-2 weeks of discharge. Please follow up with Dr. Bradley within 1-2 weeks of discharge. Avoid NSAIDs including motrin ibuprofen and aleve Diet Continue normal diet: No Additional DIET Information: low sodium diet Acute Coronary Syndrome Inclusion Criteria At DC or during hospital stay patient has or had the following: ACS DIAGNOSIS No Discharge Core Measures Meds if any: Prescribed or Continued at Discharge Meds if any: NOT Prescribed or Continued at Discharge Congestive Heart Failure Inclusion Criteria At DC or during hospital stay patient has or had the following: CHF DIAGNOSIS No Discharge Core Measures Meds if any: Prescribed or Continued at Discharge Meds if any: NOT Prescribed or Continued at Discharge Cerebrovascular accident Inclusion Criteria At DC or during hospital stay patient has or had the following: CVA/TIA Diagnosis No Discharge Core Measures Meds if any: Prescribed or Continued at Discharge Meds if any: NOT Prescribed or Continued at Discharge Venous thromboembolism Inclusion Criteria VTE Diagnosis No VTE Type NONE VTE Confirmed by (Test) NONE Discharge Core Measures - Per Current guidelines, there needs to be overlap - treatment for the first 5 days of Warfarin therapy. - If discharged on Warfarin prior to 5 days of - overlap therapy, the patient will need to be - assessed for post discharge needs including - *Post discharge parental anticoagulation - *Warfarin and/or parental anticoagulation education - *Follow up date to check INR post discharge At least 5 days overlap therapy as Inpatient No Meds if any: Prescribed or Continued at Discharge Note: Overlap Therapy is Warfarin and Anticoagulant Meds if any: NOT Prescribed or Continued at Discharge
--- NOTE | 2017-07-08 11:55 | Discharge Summary ---
Visit Information Visit Dates Admission Date: 07/02/17 Discharge Date: 07/08/17 Hospital Course Course Attending Physician: Fela Matias MD Primary Care Physician: Anoop Nava MD Hospital Course: 81 years old woman w/ multiple comorbidities was admitted for JOHN most possibly secondary to HRS, acute on chronic blood loss, uncontrolled DM and portal HTN complication ( low PLT, varceal I-II, and gastropathy). 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 -D/C albumin and intravenous fluids -hold diuretics -Cr function improving slowly -continue to trend renal function -discuss discharge medications with nephrology #Ascites -s/p theraputic paracentesis -F/U cell count and albumin, high SAAG consistent with portal hypertension -borderline PMN count -monitoring off antibiotics for SBP #History of SORIA cirrhosis, esophageal varices, portal hypertension gastropathy -Continue nadolol as bp tolerates and titrate to HR of 55-60 -appreciate GI recommendations #Acute on chronic anemia status post 1 unit PRBC, H/H stable Pt's bleeding is from occult bleeding from her portal hypertensive gastropathy. 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 #DM -Presently on Levemir 6 units bid -novolog sliding scale insulin -continue accuchecks tidac low sodium diet DVT ppx-mechanical only ALPS in setting of thrombocytopenia Full code Allergies: Coded Allergies: Opioids - Morphine Analogues (ITCH, GI UPSET 08/03/16) Opioids-Meperidine and Related (ITCH, GI UPSET 08/03/16) Opioids-Methadone and Related (ITCH, GI UPSET 08/03/16) codeine (GI UPSET 08/03/16) morphine (ITCHING, GI UPSET 08/03/16) Discharge Instructions Medications at Discharge Discharge Medications: Stop taking the following medications: Levothyroxine Sodium (Synthroid) 200 MCG TABLET ORAL DAILY BEFORE BREAKFAST Qty = 30 Furosemide (Furosemide) 20 MG TABLET ORAL DAILY Qty = 30 Continue taking these medications: Amlodipine Besylate (Amlodipine Besylate) 10 MG TABLET 1 Tablet ORAL DAILY Qty = 90 Comments: NOT GIVEN IN HOSPTIAL Nadolol (Nadolol) 20 MG TABLET 1 Tablet ORAL DAILY Comments: Last Taken: 07/08 Time: 8:00 am Lovastatin (Lovastatin) 20 MG TABLET 1 Tablet ORAL DAILY Comments: LIPITOR GIVEN WHILE IN HOSPITAL 07/07 5:00 pm Allopurinol (Zyloprim) 100 MG TABLET 1 Tablet ORAL DAILY Comments: Last Taken: 07/08 Time: 8:00 AM Omeprazole (Omeprazole) 40 MG CAPSULE.DR 1 Capsule ORAL DAILY Comments: Last Taken: 05/16/17 Time: 0530AM Mirabegron (Myrbetriq) 50 MG TAB.ER.24H 1 Tablet ORAL DAILY Comments: NOT GIVEN IN HOSPITAL Cyanocobalamin (Vitamin B-12) 1,000 MCG TABLET 1 Tablet ORAL DAILY Comments: Last Taken: 07/08 Time: 8:00 am Magnesium Oxide (Magnesium) 500 MG CAPSULE 1 Capsule ORAL DAILY Comments: NOT GIVEN IN HOSPITAL Insulin Aspart, Recombinant (Novolog Flexpen) 100 UNIT/ML INSULN.PEN 0 SUB-Q BEFORE MEALS AND AT BEDTIME Qty = 3 Instructions: Please see instructions below and follow before meal sliding scale and bedtime sliding scale as prescribed. Comments: Last Taken: 07/08 Time: 12:OO PM BLOOD SUGAR Before Meals < 80 mg/dl Drink juice 80-150 mg/dl Take 0 units 151-200 mg/dl Take 2 units 201-250 mg/dl Take 4 units 251-300 mg/dl Take 6 units 301-350 mg/dl Take 8 units 351-400 mg/dl Take 10 units > 400 mg/dl Take 12 units BLOOD SUGAR At Bedtime < 80 mg/dl Drink juice 80-150 mg/dl Take 0 units 151-200 mg/dl Take 0 units 201-250 mg/dl Take 0 units 251-300 mg/dl Take 2 units 301-350 mg/dl Take 3 units 351-400 mg/dl Take 4 units > 400 mg/dl Take 5 units Carbidopa/Levodopa (Sinemet 25-100 MG Tablet) 25 MG-100 MG TABLET 1 Tablet ORAL THREE TIMES DAILY Comments: Last Taken: 07/08 Time: 8:00 am Spironolactone (Spironolactone) 25 MG TABLET 1 Tablet ORAL DAILY Comments: NOT GIVEN IN HOSPITAL Insulin Detemir (Levemir) 100 UNIT/ML VIAL 10 Units Inject into fatty tissue TWICE DAILY Comments: Last Taken: 07/08/17 Time: 8:00 am 6 UNITS WHILE IN HOSPITAL Duloxetine HCl (Cymbalta) 60 MG CAPSULE. 1 Capsule ORAL WEDNESDAY, WEDNESDAY AND WEDNESDAY Comments: Last Taken: FRIDAY 07/07 Time: 9:00 am Duloxetine Hydrochloride (Cymbalta) 30 MG CAPSULE. 1 Capsule ORAL CORTESHURSATSUCaryn Start taking the following new medications: Fentanyl (Duragesic) 12 MCG/HOUR PATCH.TD72 1 Patch On the skin Every 3 days Qty = 10 No Refills Instructions: . Levothyroxine Sodium (Synthroid) 175 MCG TABLET 1 Tablet ORAL DAILY Qty = 30 No Refills Instructions: . Lidocaine (Lidoderm) 5 % ADH..PATCH 1 Patch On the skin DAILY Qty = 30 No Refills Instructions: .may wear up to 12 hours
[2017-07-08 14:03] VITALS: BP 148/80
== END 2017-07-08 14:10 | DRG 683 ==
LOC: ERH 17:02 → 2NA 21:13 → ERHI 21:13 → ENRESERV 22:29 → 2NA 07-03 00:01 → ENPENDDIS 07-08 11:31 → ENTRNSPT 07-08 13:49 → EDTRNSPTSTS 07-08 14:08 → EDTRNSPT 07-08 14:08 → 2NA 07-08 14:10 → CMPTRNSPT 07-08 14:17
PROVIDERS: Emergency Medicine; Internal Medicine; Student in an Organized Health Care Education/Training Program
PROC: 30233N1 Transfusion of Nonautologous Red Blood Cells into Peripheral Vein, Percutaneous Approach (ICD-10-PCS; principal; 2017-07-03)
PROC: 0W9G3ZX Drainage of Peritoneal Cavity, Percutaneous Approach, Diagnostic (ICD-10-PCS; 2017-07-06)
DX: N17.9 Acute kidney failure, unspecified (principal); K76.6 Portal hypertension; D61.818 Other pancytopenia; D69.6 Thrombocytopenia, unspecified; R18.8 Other ascites; E11.22 Type 2 diabetes mellitus with diabetic chronic kidney disease; K92.2 Gastrointestinal hemorrhage, unspecified; R16.2 Hepatomegaly with splenomegaly, not elsewhere classified; N18.4 Chronic kidney disease, stage 4 (severe); Z79.4 Long term (current) use of insulin; K75.81 Nonalcoholic steatohepatitis (NASH); E78.5 Hyperlipidemia, unspecified; I25.10 Atherosclerotic heart disease of native coronary artery without angina pectoris; K74.69 Other cirrhosis of liver; E03.9 Hypothyroidism, unspecified; M10.9 Gout, unspecified; R32 Unspecified urinary incontinence; M48.00 Spinal stenosis, site unspecified; Z88.5 Allergy status to narcotic agent; K21.9 Gastro-esophageal reflux disease without esophagitis; G25.81 Restless legs syndrome; F32.9 Major depressive disorder, single episode, unspecified; Z96.653 Presence of artificial knee joint, bilateral; Z90.49 Acquired absence of other specified parts of digestive tract; Z90.710 Acquired absence of both cervix and uterus; I12.9 Hypertensive chronic kidney disease with stage 1 through stage 4 chronic kidney disease, or unspecified chronic kidney disease; D50.0 Iron deficiency anemia secondary to blood loss (chronic); I86.4 Gastric varices
CPT/HCPCS: 2NASP; 84133; 84300; 87075; ERO; 36415; 71045; 81001; 82436; 82570; 84165; 86920; 88305; 93005; 93010; 93306; J0131; J1644; J1815; J2001; J3490; J7042; P9016; P9047

== ENCOUNTER 2017-09-03 16:15 | Inpatient (IN) | payer OTHER, MEDICARE ==
[~2017-09-03] VITALS: Ht 167.6 cm; Wt 102.3 kg
[~2017-09-03 16:15] MED LIST changes: +CYMBALTA30 M1 PO; +DURAGESIC1 EAC1 TOP; +FUROSEMIDE20 M1 PO; +LIDODERM1 EACH TOP; +SINEMET 25-1001 EACH PO; +SPIRONOLACTONE25 M1 PO; +SYNTHROID175 MCG PO
--- NOTE | 2017-09-03 18:01 | ED GENERAL ADULT ---
History of Present Illness General Chief Complaint: General Adult Stated Complaint: "IM HAVING TROUBLE WALKING" Source: patient Exam Limitations: no limitations Allergies Coded Allergies: Opioids - Morphine Analogues (ITCH, GI UPSET 08/03/16) Opioids-Meperidine and Related (ITCH, GI UPSET 08/03/16) Opioids-Methadone and Related (ITCH, GI UPSET 08/03/16) codeine (GI UPSET 08/03/16) morphine (ITCHING, GI UPSET 08/03/16) Reconcile Medications Allopurinol (Zyloprim) 100 MG TABLET 1 TAB PO DAILY GOUT (Reported) Amlodipine Besylate 10 MG TABLET 1 TAB PO DAILY BP (Reported) Carbidopa/Levodopa (Sinemet 25-100 MG Tablet) 25 MG-100 MG TABLET 1 TAB PO TID GAIT/TREMOR INSTABILITY (Reported) Cyanocobalamin (Vitamin B-12) 1,000 MCG TABLET 1 TAB PO DAILY SUPPLEMENT ( Reported) Duloxetine HCl (Cymbalta) 60 MG CAPSULE.DR 1 CAP PO [facility] (Reported) Fentanyl (Duragesic) 12 MCG/HOUR PATCH.TD72 1 PAT TOP Q3D CHRONIC BACK PAIN . Furosemide 40 MG TABLET 1 TAB PO WEDNESDAY WED WEDNESDAY DIURETIC (Reported) Insulin Aspart, Recombinant (Novolog Flexpen) 100 UNIT/ML INSULN.PEN 0 SQ TIDAC/HS DIABETES Please see instructions below and follow before meal sliding scale and bedtime sliding scale as prescribed. Insulin Detemir (Levemir) 100 UNIT/ML VIAL 10 UNITS SC BID DM (Reported) Levothyroxine Sodium (Synthroid) 175 MCG TABLET 1 TAB PO DAILY HYPOTHYROID . Lidocaine (Lidoderm) 5 % ADH..PATCH 1 PAT TOP DAILY CHRONIC BACK PAIN .may wear up to 12 hours Lovastatin 20 MG TABLET 1 TAB PO DAILY CHOLESTEROL (Reported) Magnesium Oxide (Magnesium) 500 MG CAPSULE 1 CAP PO DAILY SUPPLEMENT ( Reported) Mirabegron (Myrbetriq) 50 MG TAB.ER.24H 1 TAB PO DAILY BLADDER (Reported) Nadolol 20 MG TABLET 1 TAB PO DAILY BP (Reported) Omeprazole 40 MG CAPSULE.DR 1 CAP PO DAILY GI (Reported) Spironolactone 25 MG TABLET 1 TAB PO DAILY DIURETIC (Reported) Triage Note: 81 YEAR OLD FEMALE COMES TO ER WITH COMPLAINTS OF INCREASED WEAKNESS AND SWELLING IN LEGS AND ABD AND SOB SINCE NOVEMBER, PT STATES THAT SHE HAS LIVER PROBLEMS AND ABOUT 1.5 MONTHS AGO THEY TOOK 7.5 LITERS OFF HER ABD. PT NOTED WITH EDEMA TO BLE, COMPLAINS OF FEELING SOB, O2 SAT 95 % ON RA. DENIES URINARY SYMPTOMS.STATES THAT SHE GETS SHARP PAIN ONCE IN AWHILE IN HER CHEST, NONE AT THIS TIME. Triage Nurses Notes Reviewed? yes Onset: Gradual Duration: worse persistent since (SEVERAL WEEKS) Timing: recent history Injury Environment: home Severity: moderate Severity Numbers: 7 Modifying Factors: Improves With: immobilization. Worsens With: movement. Associated Symptoms: SOB HPI: Patient is an 81-year-old female with history of renal failure and liver failure presenting to the emergency department which complaint of worsening lower extremity edema, increased abdominal distention and shortness of breath worsening over the past several weeks but has been going on really since March of last year. She is been seen and evaluated at this hospital several times for similar symptoms and has had abdominal fluid drained. Patient denies any fevers or chills. Positive lower extremities weakness bilaterally. Difficult getting in and out of her house. No chest pain or palpitations. Denies taking anything to help with symptoms. (Briana Avalos) Vital Signs & Intake/Output Vital Signs & Intake/Output Vital Signs Date Time Temp Pulse Resp B/P B/P Pulse O2 O2 Flow FiO2 Mean Ox Delivery Rate 09/05 1600 Room Air 09/05 1508 97.8 73 20 120/78 91 /08 1017 60 120/82 08 1016 60 120/82 /08 0800 Room Air 09/05 0620 98.4 66 20 134/68 92 Room Air 09/04 2228 97.9 71 20 124/70 92 Room Air ED Intake and Output 09/05 0000 09/04 1200 Intake Total 840 310 Output Total Balance 840 310 Intake, IV 10 Intake, Oral 840 300 Number 0 0 Bowel Movements Patient 223 lb Weight Weight Bed scale Measurement Method (Terrell Caballero) Past History Travel History Traveled to [place] past 21 day No Medical History Any Pertinent Medical History? 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 MOTHER (Mother at the age of 26 years, unknown cause). Hx Contributory? No (Briana Avalos) Review of Systems Review of Systems Constitutional: Reports: weakness. Comments Review of systems: See HPI, All other systems negative. Constitutional, no chills fever or weight loss HEENT: No visual changes no sore throat no congestion Cardiovascular: No chest pain ,palpitation Skin, no jaundice no rashes Respiratory: No cough sputum or hemoptysis GI: No nausea no vomiting : No dysuria No hematuria Muscle skeletal: no back pain, no neck pain, Neurologic: No numbness no confusion, no headaches Psych: No stress anxiety or depression,. Heme/endocrine: No bruising no bleeding no polyuria or polydipsia Immunology: No splenectomy or history of AIDS (Briana Avalos) Physical Exam Physical Exam General Appearance: well developed/nourished, no apparent distress, alert, awake , comfortable Comments: Well-developed well-nourished person in mild to mod resp distress HEENT: Atraumatic, normocephalic, no signs of scleral icterus. Slightly dry lips and oral mucosa. Neck: Normal inspection Back: Nontender, no CVA tenderness. Cardiovascular: Regular rate and rhythms no murmurs rubs or gallops, normal JVP Respiratory: Chest nontender. Moderate respiratory distress. Slight increased work of breathing..breath sounds significantly diminished to auscultation bilaterally Abdomen: Slightly distended in the upper abdomen, soft lower abdomen, umbilical hernia present that reducible, no appreciable organomegaly. Hypoactive bowel sounds throughout. NO CAPUT medusa noted. Extremity: 3+ pitting edema in the lower extremities bilaterally, no calf tenderness to palpation. Pedal pulses are 1+ bilaterally. Zigzagger strength is equal and symmetric bilaterally. Muscular strength of the upper extremities is 4 out of 5. Neuro: Alert oriented x3 Skin: No appreciable rash on exposed skin, skin is warm and dry. Psych: Mood and affect is normal, memory and judgment is normal. Core Measures ACS in differential dx? Yes CVA/TIA Diagnosis: No Sepsis Present: No Sepsis Focused Exam Completed? No (Deb GENAO,Briana) Progress Differential Diagnoses I considered the following diagnoses in my evaluation of the patient: CHF, liver failure, shortness of breath secondary to ascites, anemia, acute kidney injury, ACS, portal htn, spontaneous bacterial peritonitis Diagnostic Imaging: Viewed by Me: Radiology Read, CT Scan. Discussed w/RAD: Radiology Read, CT Scan. Radiology Impression: PATIENT: ANGELA LEMOS PRESENT AGE: 81 PATIENT ACCOUNT NO: [id number] : 36 LOCATION: [facility] ORDERING PHYSICIAN: Syed Frausto DO SERVICE DATE: 09/03/17 EXAM TYPE: RAD - XRY-CHEST XRAY, TWO VIEWS EXAMINATION: XR CHEST CLINICAL INFORMATION: Cough and shortness of breath COMPARISON: 07/02/2017 TECHNIQUE: 2 views of the chest were obtained. FINDINGS: Lung volumes are low with mild elevation of the right hemidiaphragm. Minimal left basilar atelectasis. Bronchial wall thickening noted. No dense consolidation. No pleural effusion or pneumothorax. The cardiomediastinal silhouette is unchanged, with a calcified aorta. Mild degenerative changes of the spine. Upper abdominal surgical clips noted. IMPRESSION: Low lung volumes with linear left basilar atelectasis. Bronchial wall thickening can be seen with a small airways process such as asthma or atypical/viral infection. DICTATED BY: Wilfred Mitchell MD DATE/TIME DICTATED: 09/03/171828 MILK CONDENSER:TAMMY DATE/TIME TRANSCRIBED:09/03/171828 CONFIDENTIAL, DO NOT COPY WITHOUT APPROPRIATE AUTHORIZATION. <Electronically signed in Other Vendor System> SIGNED BY: Wilfred Mitchell MD 09/03/17 183, PATIENT: ANGELA LEMOS PRESENT AGE: 81 PATIENT ACCOUNT NO: [id number] : 36 LOCATION: ER ORDERING PHYSICIAN: Briana GENAO SERVICE DATE: 09/03/17 EXAM TYPE: CAT - CT ABD & PELVIS W/O IV CONTRAS EXAMINATION: CT ABDOMEN AND PELVIS WITHOUT CONTRAST CLINICAL INFORMATION: Shortness of breath, distention. Rule out ascites, abdominal process COMPARISON: Abdominal ultrasound 07/13/2017 TECHNIQUE: Multidetector volumetric imaging was performed from the lung bases through the pubic symphysis. Sagittal and coronal reformatted images were obtained on the technologist workstation. Total exam dose-length product 946 mGy-cm FINDINGS: The lack of intravenous contrast limits evaluation of the solid visceral organs including the liver, spleen, pancreas, and kidneys. LUNG BASES: There is new lingular opacity, which could represent atelectasis or pneumonia. LIVER, GALLBLADDER, AND BILIARY TREE: The liver is shrunken and nodular consistent with cirrhosis. Lack of IV contrast limits evaluation. Status post cholecystectomy. No biliary ductal dilatation. A large volume of ascites is present throughout the abdomen and pelvis. PANCREAS: Limited non-contrast evaluation is normal. No kateryna-pancreatic fluid. SPLEEN: Spleen is enlarged. No focal splenic lesion seen. ADRENAL GLANDS: Normal; no adrenal mass. KIDNEYS AND URETERS: The kidneys are atrophic. No hydronephrosis, calculi, or solid mass. GASTROINTESTINAL TRACT: Likely small hiatal hernia. Stomach collapsed. The small bowel loops are centralized by the large volume of ascites but there is no small bowel dilation to suggest obstruction. The extent of ascites limits evaluation for colonic wall thickening or subtle pericolonic inflammatory changes. There is severe sigmoid diverticulosis with scattered diverticula elsewhere. No evidence of acute colitis or diverticulitis. ABDOMINAL WALL: There is ascites within an umbilical hernia. There is anasarca, particularly involving the pelvis. LYMPH NODES: No pathologically enlarged lymph nodes in the abdomen or pelvis. VASCULAR: Moderate calcified atherosclerotic change of normal caliber aorta. BLADDER: Unremarkable. PELVIC VISCERA: Uterus not seen, presumably surgically absent. No adnexal mass. OSSEOUS STRUCTURES: There are degenerative changes of the spine. No acute or suspicious osseous abnormality. IMPRESSION: Large volume of ascites in the background of cirrhosis and likely portal hypertension. Anasarca. Findings suggest volume overload. DICTATED BY: Elias Dominguez MD DATE/TIME DICTATED:11/15 MILK CONDENSER:TAMMY DATE/TIME TRANSCRIBED:09/03/171928 CONFIDENTIAL, DO NOT COPY WITHOUT APPROPRIATE AUTHORIZATION. <Electronically signed in Other Vendor System> SIGNED BY: Elias Dominguez MD 09/03/171942 Initial ED EKG: see nrsing note Hand-Off Endorsed To: Terrell Caballero (Briana Avalos) Differential Diagnoses I considered the following diagnoses in my evaluation of the patient: Plan of Care: Orders Procedure Date/time Status Nothing by Mouth 09/06 B Active CBC WITHOUT DIFFERENTIAL 09/06 599 Active BASIC ELECTROLYTES PLUS BUN&CR 09/06 599 Active Current Medications Sig/Jennifer Start time Last Medication Dose Stop Time Status Admin Furosemide 40 MG 09/06 1000 AC (Lasix) Insulin Detemir 8 UNITS AT BEDTIME 09/05 2200 CAN (Levemir) Insulin Detemir 10 UNITS DAILY 09/05 1000 AC 09/05 (Levemir) 1017 Lovastatin 20 MG 1700 09/04 1700 AC 09/05 (Mevacor 20MG) 1616 Allopurinol 100 MG DAILY 09/04 1000 AC 09/05 (Zyloprim) 1016 Amlodipine Besylate 10 MG DAILY 09/04 1000 AC 09/05 (Norvasc) 1017 Carbidopa/Levodopa 1 TAB TID 09/04 1000 AC 09/05 (Sinemet 25/100MG) 202 Cyanocobalamin 1,000 MCG DAILY 09/04 1000 AC 09/05 (Vitamin B12) 1016 Levothyroxine Sodium 0.175 MG DAILY 09/04 1000 AC 09/05 (Synthroid) 1016 Magnesium Oxide 400 MG DAILY 09/04 1000 AC 09/05 (Mag-Ox) 1017 Mirabegron 25 MG DAILY 09/04 1000 AC 09/05 (Myrbetriq) 1016 Nadolol 20 MG DAILY 09/04 1000 AC 09/05 (Corgard) 1016 Spironolactone 25 MG DAILY 09/04 1000 AC 09/05 (Aldactone) 1016 Insulin Aspart 0 TIDAC 09/04 0800 AC 09/05 (NovoLOG) 1616 Omeprazole 40 MG DAILY AC 09/04 0700 AC 09/05 (Prilosec) 0538 Heparin Sodium 5,000 UNIT Q8 09/04 0600 AC 09/05 (Porcine) 202 Lidocaine 1 PAT DAILY 09/04 0230 AC 09/05 (Lidoderm) 1017 Fentanyl Citrate 12 MCG Q72H 09/03 194 AC 09/03 (Duragesic) 2005 Laboratory Tests 09/05/17 0715: Anion Gap 9, Estimated GFR 25 L, BUN/Creatinine Ratio 28.4 H, CBC w Diff NO MAN DIFF REQ, RBC 2.92 L, MCV 100.4 H, MCH 33.2 H, MCHC 33.0, RDW 21.2 H, MPV 10.5 H, Gran % 54.6, Lymphocytes % 27.9, Monocytes % 14.3 H, Eosinophils % 2.8, Basophils % 0.4, Absolute Granulocytes 2.6, Absolute Lymphocytes 1.3, Absolute Monocytes 0.7 H, Absolute Eosinophils 0.1, Absolute Basophils 0 Patient is afebrile, no acute distress, no white count. Unlikely bacterial peritonitis. Abdomen is not tense abdomen is soft and slightly distended. Discussed case with Dr. salmeron, He feels the patient does not need emergent paracentesis. (Briana Avalos) pt was signed out to me by [facility] [employer]. pt was attempted to be ambulated in the emergency department and was unable to stand due to her increasing ascites. She is below her baseline. She is usually able to get around with a walker. Her abdomen is not tense. Case was discussed with Dr. Salmeron she does not feel like the patient requires an urgent paracentesis. She'll need to be admitted to the hospital. She'll require serial labs, physical therapy, case management, IR in the morning for paracentesis, GI consult. Case discussed with Dr. Johnson he agrees. (Wagner GENAO,Terrell) Departure Departure Condition: Stable Referrals: Brandy PEREZ,Anoop Moore (PCP/Family) Departure Forms: Customer Survey General Discharge Information Admission Note Spoke With: Elvis Taylor MD Documentation of Exam: Documentation of any treatments & extenuating circumstances including Concerns Regarding Discharge (functional status, medication knowledge or non-compliance, living conditions, etc.) that warrant an admission rather than observation: Patient requiring physical therapy, case management evaluation, a simple low baseline at this time in terms of ambulation status, patient will require nonemergent interventional radiology for paracentesis, GI consultation. Discharge at this time is medically harmful. Patient unable to ambulate in the emergency department secondary to weakness in the legs and increasing ascites. This is below patient's baseline. (Briana Avalos) Departure Disposition: STILL A PATIENT Clinical Impression Primary Impression: Gait instability Secondary Impressions: Ascites Qualifiers: Ascites type: other type Qualified Code: R18.8 - Other ascites (Trerell Caballero) PA/CLOUD SECURITY ARCHITECT Co-Sign Statement Statement: ED Attending supervision documentation- [X] I saw and evaluated the patient. I have also reviewed all the pertinent lab results and diagnostic results. I agree with the findings and the plan of care as documented in the PA's/CLOUD SECURITY ARCHITECT's documentation. 09/03/17, 21:16... Pt unable to ambulate, will require large volume paracentesis... best served via IR in AM... also may need short term rehab. no abdominal tenderness on exam. [] I have reviewed the ED Record and agree with the PA's/CLOUD SECURITY ARCHITECT's documentation. [] Additions or exceptions (if any) to the PAs/CLOUD SECURITY ARCHITECT's note and plan are summarized below: [] (Elizabeth PEREZ,Anil Marinelli) Critical Care Note Critical Care Note Critical Care Time: non-applicable (Briana Avalos) [X] I saw and evaluated the patient. I have also reviewed all the pertinent lab results and diagnostic results. I agree with the findings and the plan of care as documented in the PA's/CLOUD SECURITY ARCHITECT's documentation. 09/03/17, 21:16... Pt unable to ambulate, will require large volume paracentesis... best served via IR in AM... also may need short term rehab. no abdominal tenderness on exam. [] I have reviewed the ED Record and agree with the PA's/CLOUD SECURITY ARCHITECT's documentation. [] Additions or exceptions (if any) to the PAs/CLOUD SECURITY ARCHITECT's note and plan are summarized below: [] (Anil Johnson MD) Critical Care Note Critical Care Note Critical Care Time: non-applicable (Briana Avalos)
--- NOTE | 2017-09-03 18:33 | RADIOLOGY REPORT ---
EXAMINATION: XR CHEST CLINICAL INFORMATION: Cough and shortness of breath COMPARISON: 07/02/2017 TECHNIQUE: 2 views of the chest were obtained. FINDINGS: Lung volumes are low with mild elevation of the right hemidiaphragm. Minimal left basilar atelectasis. Bronchial wall thickening noted. No dense consolidation. No pleural effusion or pneumothorax. The cardiomediastinal silhouette is unchanged, with a calcified aorta. Mild degenerative changes of the spine. Upper abdominal surgical clips noted. IMPRESSION: Low lung volumes with linear left basilar atelectasis. Bronchial wall thickening can be seen with a small airways process such as asthma or atypical/viral infection.
[2017-09-03 18:44] LABS: ABSOLUTE BASOPHIL COUNT 0 /CUMM (0.0-0.2); ABSOLUTE EOSINOPHIL COUNT 0.2 /CUMM (0.0-0.7); ABSOLUTE GRANULOCYTE CT 5.2 /CUMM (1.4-6.5); ABSOLUTE LYMPH COUNT 1.3 /CUMM (1.2-3.4); ABSOLUTE MONOCYTE COUNT 1.1 /CUMM (0.10-0.60); BASOPHIL % 0.4 % (0.0-2.0); EOSINOPHIL % 2.1 % (0-5); HEMATOCRIT 38.3 % (37-47); MEAN CORPUSCULAR HGB 32.9 PG (27.0-31.0); MEAN CORPUSCULAR HGB CONC 32.7 G/DL (33.0-37.0); MEAN CORPUSCULAR VOLUME 100.7 FL (81.0-99.0); MEAN PLATELET VOLUME 10.6 FL (7.4-10.4); PLATELET COUNT 156 /CUMM (130-400); RBC DISTRIBUTION WIDTH 21.7 % (11.5-14.5); RED BLOOD CELL CT 3.81 /CUMM (4.20-5.40); WHITE BLOOD CELL COUNT 7.8 /CUMM (4.8-10.8)
--- NOTE | 2017-09-03 19:43 | CT SCAN REPORT ---
EXAMINATION: CT ABDOMEN AND PELVIS WITHOUT CONTRAST CLINICAL INFORMATION: Shortness of breath, distention. Rule out ascites, abdominal process COMPARISON: Abdominal ultrasound 07/13/2017 TECHNIQUE: Multidetector volumetric imaging was performed from the lung bases through the pubic symphysis. Sagittal and coronal reformatted images were obtained on the technologist workstation. Total exam dose-length product 946 mGy-cm FINDINGS: The lack of intravenous contrast limits evaluation of the solid visceral organs including the liver, spleen, pancreas, and kidneys. LUNG BASES: There is new lingular opacity, which could represent atelectasis or pneumonia. LIVER, GALLBLADDER, AND BILIARY TREE: The liver is shrunken and nodular consistent with cirrhosis. Lack of IV contrast limits evaluation. Status post cholecystectomy. No biliary ductal dilatation. A large volume of ascites is present throughout the abdomen and pelvis. PANCREAS: Limited non-contrast evaluation is normal. No kateryna-pancreatic fluid. SPLEEN: Spleen is enlarged. No focal splenic lesion seen. ADRENAL GLANDS: Normal; no adrenal mass. KIDNEYS AND URETERS: The kidneys are atrophic. No hydronephrosis, calculi, or solid mass. GASTROINTESTINAL TRACT: Likely small hiatal hernia. Stomach collapsed. The small bowel loops are centralized by the large volume of ascites but there is no small bowel dilation to suggest obstruction. The extent of ascites limits evaluation for colonic wall thickening or subtle pericolonic inflammatory changes. There is severe sigmoid diverticulosis with scattered diverticula elsewhere. No evidence of acute colitis or diverticulitis. ABDOMINAL WALL: There is ascites within an umbilical hernia. There is anasarca, particularly involving the pelvis. LYMPH NODES: No pathologically enlarged lymph nodes in the abdomen or pelvis. VASCULAR: Moderate calcified atherosclerotic change of normal caliber aorta. BLADDER: Unremarkable. PELVIC VISCERA: Uterus not seen, presumably surgically absent. No adnexal mass. OSSEOUS STRUCTURES: There are degenerative changes of the spine. No acute or suspicious osseous abnormality. IMPRESSION: Large volume of ascites in the background of cirrhosis and likely portal hypertension. Anasarca. Findings suggest volume overload.
[2017-09-03] MEDS ORDERED: FUROSEMIDE40 M1 PO (21:41)
[2017-09-03] MEDS ORDERED: FERROUS SULFAT325 M3 PO (21:49)
[2017-09-03] MEDS ORDERED: LISINOPRIL-HCT1 EACH (21:51)
[2017-09-03 23:40] VITALS: BP 124/78
--- NOTE | 2017-09-04 00:08 | History & Physical ---
Susanne Schultz 09/04/17 0007: General Information and HPI MD Statement: I have seen and personally examined ANGELA LEMOS and documented this H&P. The patient is a 81 year old F who presented with a patient stated chief complaint of [abdominal distension, SOB, difficulty ambulating, and s/p mechanical fall]. Source of Information: patient Exam Limitations: no limitations History of Present Illness: 81-year-old female with CAD, HTN, HLD, DM, hypothyroidism, chronic back pain, SORIA/cirrhosis, and CKD Stage IIIB/IV presented to the ED with complaint of worsening lower extremity edema, increased abdominal distention and shortness of breath worsening over the past several weeks but has been going on really since March of last year. She is been seen and evaluated at this hospital several times for similar symptoms and has had abdominal fluid drained. According to the patient she has abdominal swelling, and lower extremity swelling that over the past few weeks has worsened to the point where she is having increased difficulty ambulating especially this am. Does endorses pain on the left side of her chest whcih she attributes to her abdominal distension,a dn having strained herself up the wrong way. States that sitting down is not bad, but standing is when the pain gets worse. She states that she is not urinating a lot, and barely drinks water. States that she was started on lasix by Dr. Warner, which is not working a lot for her. However, it probably works a little as previously she was not able to get her shoe on, but now she is able to do so. Deneis any CP, but does endorse SOB, which is on minimal exertion even while talking on the phone. States that this started about a few weeks ago. Denies any nausea, vomiting, abdominal pian, no constipation or diarrhea, fevers , or chills. Seh is not sure if she is taking Spironolcatone. She states taht she has been having increasing difficulty ambulating and started to use a walker about a week ago, because she feels weak in her legs. She states that fell this morning, while trying to get herself up from the toielt seat. She states that she called her hsuband for help, who is hard of hearing, however, he finally heard her after which he tried to help her get up from the toilet seat. She states that she subsequently held on to the bathroom sink, however, felt her R leg giving away, and she went down, while holding on to the sink. Denies hitting her head, or losing conscious, no chest pain, no palpitation prior to the fall. Of note she lives with her and does not ahve any aide at home. Allergies/Medications Allergies: Coded Allergies: Opioids - Morphine Analogues (ITCH, GI UPSET 08/03/16) Opioids-Meperidine and Related (ITCH, GI UPSET 08/03/16) Opioids-Methadone and Related (ITCH, GI UPSET 08/03/16) codeine (GI UPSET 08/03/16) morphine (ITCHING, GI UPSET 08/03/16) Home Med list Allopurinol (Zyloprim) 100 MG TABLET 1 TAB PO DAILY GOUT (Reported) Amlodipine Besylate 10 MG TABLET 1 TAB PO DAILY BP (Reported) Carbidopa/Levodopa (Sinemet 25-100 MG Tablet) 25 MG-100 MG TABLET 1 TAB PO TID GAIT/TREMOR INSTABILITY (Reported) Cyanocobalamin (Vitamin B-12) 1,000 MCG TABLET 1 TAB PO DAILY SUPPLEMENT ( Reported) Duloxetine HCl (Cymbalta) 60 MG CAPSULE.DR 1 CAP PO [facility] (Reported) Fentanyl (Duragesic) 12 MCG/HOUR PATCH.TD72 1 PAT TOP Q3D CHRONIC BACK PAIN . Furosemide 40 MG TABLET 1 TAB PO Wednesday DIURETIC (Reported) Insulin Aspart, Recombinant (Novolog Flexpen) 100 UNIT/ML INSULN.PEN 0 SQ TIDAC/HS DIABETES Please see instructions below and follow before meal sliding scale and bedtime sliding scale as prescribed. Insulin Detemir (Levemir) 100 UNIT/ML VIAL 10 UNITS SC BID DM (Reported) Levothyroxine Sodium (Synthroid) 175 MCG TABLET 1 TAB PO DAILY HYPOTHYROID . Lidocaine (Lidoderm) 5 % ADH..PATCH 1 PAT TOP DAILY CHRONIC BACK PAIN .may wear up to 12 hours Lovastatin 20 MG TABLET 1 TAB PO DAILY CHOLESTEROL (Reported) Magnesium Oxide (Magnesium) 500 MG CAPSULE 1 CAP PO DAILY SUPPLEMENT ( Reported) Mirabegron (Myrbetriq) 50 MG TAB.ER.24H 1 TAB PO DAILY BLADDER (Reported) Nadolol 20 MG TABLET 1 TAB PO DAILY BP (Reported) Omeprazole 40 MG CAPSULE.DR 1 CAP PO DAILY GI (Reported) Spironolactone 25 MG TABLET 1 TAB PO DAILY DIURETIC (Reported) Compliance With Home Meds: GOOD Past History Travel History Traveled to [place] past 21 day No Medical History Blood Transfusion Hx: Yes Neurological: migraine, peripheral neuropathy EENT: NONE Cardiovascular: hypertension, hyperlipidemia Respiratory: NONE Gastrointestinal: GERD, portal hypertension, gastropathy varices Hepatic: cirrhosis Renal: urinary incontinence, KIDNEY FAILURE Musculoskeletal: gout, restless leg syndrome Psychiatric: depression Endocrine: diabetes, hypothyroidism Blood Disorders: thrombocytopenia Cancer(s): NONE [employer]YSI[employer] TE[employer]ER/Reproductive: NONE Other Medical Hx: Urinary incontinence History of MRSA: No History of VRE: No History of CDIFF: No Isolation History: Standard Influenza Vaccine: 03/14/17 Surgical History Surgical History: appendectomy, cholecystectomy, hysterectomy, BILAT KNEE REPLACEMENTS Past Family/Social History Family History Relations & Conditions if any FATHER (Had a history of brain aneurysm and of stroke at the age of 73). MOTHER (Mother at the age of 26 years, unknown cause). Psychosocial History Where do you live? Home Who Do You Live With? spouse Services at Home: None Primary Language: Comoran Smoking Status: Never Smoked ETOH Use: denies use Illicit Drug Use: denies illicit drug use Living Will? no Functional Ability ADLs Independent: dressing, eating, toileting, bathing. Ambulation: walker IADLs Independent: shopping, housework, finances, food prep, telephone, medication admin. Needs Assist: transportation. Review of Systems Review of Systems Constitutional: Reports: weakness. Denies: chills, diaphoresis, fever. EENTM: Denies: visual changes. Cardiovascular: Reports: orthopena, peripheral edema. Denies: chest pain, palpitations, syncope. Respiratory: Reports: cough, orthopnea, short of breath. Denies: sputum production, wheezing. GI: Reports: distention. Denies: abdominal pain, constipation, diarrhea, nausea, changes in stool, vomiting. Genitourinary: Denies: dysuria, frequency, hematuria. Musculoskeletal: Reports: back pain. Neurological/Psychological: Reports: weakness. Denies: headache, numbness, tingling, tremors. Exam & Diagnostic Data Last 24 Hrs of Vital Signs/I&O Vital Signs Date Time Temp Pulse Resp B/P B/P Pulse O2 O2 Flow FiO2 Mean Ox Delivery Rate 09/03 2340 97.8 71 20 124/78 95 Room Air 09/03 2301 98.0 86 20 140/82 97 Room Air 09/03 1938 97.8 66 18 139/75 94 Room Air 09/03 1643 97.6 72 20 118/76 95 Room Air Intake & Output 09/04 0800 04 0000 09/03 1600 Intake Total Output Total 200 Balance -200 Output, Urine 200 Patient 230 lb Weight Physical Exam General Appearance Alert, Oriented X3, Cooperative, Mild Distress (2/2 abdominal distension) Skin Temp/Moisture Exam: Warm/Dry HEENT Atraumatic, PERRLA, EOMI, dry mucuos membranes Neck Supple, No thryomegaly, No LAD, JVD~6cm Cardiovascular Regular Rate, Normal S1, Normal S2, No Murmurs Lungs Clear to Auscultation, Normal Air Movement Abdomen Normal Bowel Sounds, Soft, distended, with umblical hernia measuring 2cm x3cm; fluid thrill Neurological Normal Gait, Normal Speech, Strength at 5/5 X4 Ext, Normal Tone Extremities b/l LE edema entending up to her knee; wih b/l knee surgery scars, and mild erythema on her RL sams Body Front and Back (Adult) 1) erythema Last 24 Hrs of Labs/Unruly: Laboratory Tests 09/03/17 1806: Anion Gap 14, Estimated GFR 24 L, BUN/Creatinine Ratio 26.5 H, Glucose 135 H, Calcium 10.9 H, Total Bilirubin 1.5 H, Direct Bilirubin 0.9 H, AST 43 H, ALT 19, Alkaline Phosphatase 161 H, Troponin I 0.02, Total Protein 7.8, Albumin 3.9 , Globulin 3.9, Albumin/Globulin Ratio 1.0 L, RBC 3.81 L, MCV 100.7 H, MCH 32.9 H, MCHC 32.7 L, RDW 21.7 H, MPV 10.6 H, Gran % 67.0, Lymphocytes % 17.0 L, Monocytes % 13.5 H, Eosinophils % 2.1, Basophils % 0.4, Absolute Granulocytes 5.2, Absolute Lymphocytes 1.3, Absolute Monocytes 1.1 H, Absolute Eosinophils 0.2, Absolute Basophils 0 Diagnostic Data CXR Results FINDINGS: Lung volumes are low with mild elevation of the right hemidiaphragm. Minimal left basilar atelectasis. Bronchial wall thickening noted. No dense consolidation. No pleural effusion or pneumothorax. The cardiomediastinal silhouette is unchanged, with a calcified aorta. Mild degenerative changes of the spine. Upper abdominal surgical clips noted. IMPRESSION: Low lung volumes with linear left basilar atelectasis. Bronchial wall thickening can be seen with a small airways process such as asthma or atypical/viral infection. Other Results SERVICE DATE: 09/03/17 EXAM TYPE: CAT - CT ABD & PELVIS W/O IV CONTRAST FINDINGS: The lack of intravenous contrast limits evaluation of the solid visceral organs including the liver, spleen, pancreas, and kidneys. LUNG BASES: There is new lingular opacity, which could represent atelectasis or pneumonia. LIVER, GALLBLADDER, AND BILIARY TREE: The liver is shrunken and nodular consistent with cirrhosis. Lack of IV contrast limits evaluation. Status post cholecystectomy. No biliary ductal dilatation. A large volume of ascites is present throughout the abdomen and pelvis. PANCREAS: Limited non-contrast evaluation is normal. No kateryna-pancreatic fluid. SPLEEN: Spleen is enlarged. No focal splenic lesion seen. ADRENAL GLANDS: Normal; no adrenal mass. KIDNEYS AND URETERS: The kidneys are atrophic. No hydronephrosis, calculi, or solid mass. GASTROINTESTINAL TRACT: Likely small hiatal hernia. Stomach collapsed. The small bowel loops are centralized by the large volume of ascites but there is no small bowel dilation to suggest obstruction. The extent of ascites limits evaluation for colonic wall thickening or subtle pericolonic inflammatory changes. There is severe sigmoid diverticulosis with scattered diverticula elsewhere. No evidence of acute colitis or diverticulitis. ABDOMINAL WALL: There is ascites within an umbilical hernia. There is anasarca, particularly involving the pelvis. LYMPH NODES: No pathologically enlarged lymph nodes in the abdomen or pelvis. VASCULAR: Moderate calcified atherosclerotic change of normal caliber aorta. BLADDER: Unremarkable. PELVIC VISCERA: Uterus not seen, presumably surgically absent. No adnexal mass. OSSEOUS STRUCTURES: There are degenerative changes of the spine. No acute or suspicious osseous abnormality. IMPRESSION: Large volume of ascites in the background of cirrhosis and likely portal hypertension. Anasarca. Findings suggest volume overload. Assessment/Plan Assessment: 81 years old female with PMH significant for CAD, HTN, HLD, DM, hypothyroidism, chronic back pain, SORIA/cirrhosis, and CKD Stage IIIB/IV noticed swelling of her legs and abdomen, associated with worsening SOB, and weakness in her LE s/p mechanical fall. Vitals at the time of admission blood pressure 124/78, respiratory rate of 20, pulse 71, afebrile saturating 95%. Labs pertinent for white blood cell count of 7800, H&H 12.5/38.3;platelet count of 156,000 and MCV of 100.7. Serum chemistries pertinent for sodium of 140, potassium 4.8, bicarbonate of 28, anion gap of 14, BUN 53 with a cracking of 2.0. LFTs pertinent for , direct 0.9, AST/L2 43/19 and an alkaline phosphatase of 161. First set of troponin 0.02 total bili of 1.5. UA not received. Chest x-ray: Low lung volumes with linear left basilar atelectasis. Bronchial wall thickening can be seen with a small airways process such as asthma or atypical/viral infection. EKG revealed CT Abdome; Large volume of ascites in the background of cirrhosis and likely portal hypertension. Anasarca. Findings suggest volume overload. In the ER patient received treatment with albuterol, ipratropium and fentanyl patch. She was attempted to be ambulated in the ER and was unable to stand due to her increasing ascites. Assessment and Plan: #Ascites 2/2 decompensated liver from SORIA Will need therpautic IR guided ascitic tap in AM. IR F/U in AM - please place consult. F/U cell count, culture and diff Meanwhile continue Spironolactone 25 mg daily, Lasix 40 mg Wednesday, nadolol 20 mg Consider GI consult in AM #Mechanical fall Secondary to deconditioning PT eval in a.m. Maintain on fall precautions #Hypothyroidism Continue on levothyroxine 0.175 mg Check TSH, FT4 #Diabetes mellitus Continue on Levemir 10 units twice daily and NovoLog sliding scale Accu-Cheks 3 times daily at bedtime #Hyperlipidemia Continue on lovastatin 20 mg daily #GERD Continue on Prilosec 40 mg daily p.o. #Gout Continue on allopurinol 100 mg daily #Hypertension Continue Norvasc 10 mg daily p.o. #Parkinson's Continue on Sinemet 29245 mg 3 times daily #Acute on chronic lower back pain Continue Lidoderm patch and fentanyl patch #Urinary incontinence Continue on Myrbetriq 50 mg daily p.o. -DVT prophylaxis Heparin 5000 nostrils daily SC Diet Diabetic CODE STATUS Full As Ranked By This Provider Problem List: 1. Ascites Qualifiers Ascites type: other type Qualified Code: R18.8 - Other ascites 2. Gait instability Core Measures/Misc (02/14) Acute Coronary Syndrome ACS Diagnosis: No Congestive Heart Failure Congestive Heart Failure Diagnosis No Cerebrovascular Accident CVA/TIA Diagnosis: No VTE (View Protocol) VTE Risk Factors Age>40 No Mechanical VTE Prophylaxis d/t N/A MechProphylax Ordered No VTE Pharm Prophylaxis d/t NA PharmProphylax ordered Sepsis (View protocol) Sepsis Present: No Resident Review Statement Resident Statement: admitted by resident Elvis Taylor 09/04/17 0651: Attending MD Review Statement Attending Statement Attending MD Statement: examined this patient, discuss w/resident/PA/MATHEMATICS LECTURER, agreed w/resident/PA/MATHEMATICS LECTURER, reviewed EMR data (avail), reviewed images, amended to note Attending Assessment/Plan: CC: Worsening of abdominal distention and leg swelling, fall. PMH: DM, HTN, HLD, CAD, 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, with his aphasia where he says, portal hypertension, ROD, hypothyroidism, gout, spinal stenosis, incontinence, CKD Patient came to ER for worsening leg swelling, abdominal distention and shortness of breath over last several weeks. She went to bathroom today, while getting up from the commode she could not get up and then her right leg gave out and she fell down, did not lose consciousness, no prodromal symptoms before fall. Her was at home who could not help her to get up, she required 2 person assistance to get up and rested on the bed. She has chronic low back pain but her back pain continued so she came to ER. Her respiratory discomfort is positional and on exertion, not associated with cough or expectoration, no fever or chills. Other than the fall, shortness of breath, abdominal distention and leg swelling complete ROS unremarkable including urinary or stool incontinence Vitals: Afebrile, pulse is 70s, RR 20, blood pressure 118/76, saturating well on room air On exam: A O 3, cooperative, no acute distress, neck supple, JVD normal, no lymphadenopathy, mucosa moist, no focal neurological deficit, +2 pedal edema, no obvious skin rashes or inflammation CVS: S1-S2, RRR. RS: Clear to auscultate bilaterally. Abdomen: Soft, NT, distended, fluid thrill, capute medusae, bowel sounds present. CXR:Low lung volumes with linear left basilar atelectasis. Bronchial wall thickening can be seen with a small airways process such as asthma or atypical/viral infection. CT abdomen and pelvis without IV contrast: Large volume of ascites in the background of cirrhosis and likely portal hypertension. Anasarca. Findings suggest volume overload. Assessment and plan 81-year-old female with extensive past medical history multiple comorbidities especially significant for SORIA cirrhosis, decompensated with portal hypertension and ascites presented in ER for worsening shortness of breath, orthopnea, dyspnea on exertion, distention upper abdomen, leg swelling. She has significantly distended abdomen with fluid thrill, no obvious crackles or JVD. No guarding or rigidity less likely SBP. Patient's respiratory discomfort appears secondary to large volume ascites causing pressure on her diaphragm. Chest x-ray mentions bronchitis, but there is no obvious wheezing on auscultation. No evidence of pneumonia. Patient also fell down at home, appears to be mechanical fall but required 2 person assistance to get up. On ambulation evaluation in ER patient required two-person assistance and was unsteady gait. I think gait abnormality is also secondary to ascites and fluid weight or could be secondary to orthostatic with diuresis. Patient underwent paracentesis on August 12 and July 06 , 4 L each. We will get IR involved for therapeutic paracentesis. Consider TIPS procedure for resistant ascites. Patient follows up with GI. 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 Patient did not confirm all her medications.
--- NOTE | 2017-09-04 05:41 | PN- Housestaff ---
Subjective Follow-up For: - Ascites 2/2 SORIA - Physical deconditioning Objective Last 24 Hrs of Vital Signs/I&O Vital Signs Date Time Temp Pulse Resp B/P B/P Pulse O2 O2 Flow FiO2 Mean Ox Delivery Rate 09/03 2340 97.8 71 20 124/78 95 Room Air 09/03 2301 98.0 86 20 140/82 97 Room Air 09/03 1938 97.8 66 18 139/75 94 Room Air 09/03 1643 97.6 72 20 118/76 95 Room Air Intake & Output 09/04 0800 09/04 0000 09/03 1600 Intake Total Output Total 200 Balance -200 Output, Urine 200 Patient 230 lb 230 lb Weight Weight Reported by Patient Measurement Method Current Medications: Current Medications Sig/Jennifer Start time Last Medication Dose Route Stop Time Status Admin Albuterol Sulfate 3 ML ONCE ONE 09/03 1844 DC 09/03 INH 09/03 1845 184 Allopurinol 100 MG DAILY 09/04 1000 AC PO Amlodipine Besylate 10 MG DAILY 09/04 1000 AC PO Carbidopa/Levodopa 1 TAB TID 09/04 1000 AC PO Cyanocobalamin 1,000 MCG DAILY 09/04 1000 AC PO Fentanyl Citrate 12 MCG Q72H 09/03 1945 AC 09/03 TOP 2006 Furosemide 40 MG 09/06 1000 AC PO Heparin Sodium 5,000 UNIT Q8 09/04 0600 AC (Porcine) SC Insulin Aspart 0 TIDAC 09/04 0800 AC SC Insulin Aspart 0 TIDAC 09/04 0800 CAN SC Insulin Detemir 10 UNITS BID 09/04 0100 AC 09/04 SC 0253 Ipratropium [place] 2.5 ML ONCE ONE 09/03 184 DC 09/03 INH 09/03 1845 184 Levothyroxine Sodium 0.175 MG DAILY 09/04 1000 AC PO Lidocaine 1 PAT DAILY 09/04 1000 CAN EXT Lidocaine 1 PAT DAILY 09/04 0230 AC 09/04 EXT 0250 Lovastatin 20 MG 1700 09/04 1700 AC PO Magnesium Oxide 400 MG DAILY 09/04 1000 AC PO Mirabegron 25 MG DAILY 09/04 1000 AC PO Nadolol 20 MG DAILY 09/04 1000 AC PO Non-Formulary 0 SEE ADMIN CRITERIA 09/04 0100 DC Medication ANY Omeprazole 40 MG DAILY AC 09/04 0700 AC PO Spironolactone 25 MG DAILY 09/04 1000 AC PO Last 24 Hrs of Lab/Unruly Results Last 24 Hrs of Labs/Mics: Laboratory Tests 09/03/17 1806: Anion Gap 14, Estimated GFR 24 L, BUN/Creatinine Ratio 26.5 H, Glucose 135 H, Calcium 10.9 H, Total Bilirubin 1.5 H, Direct Bilirubin 0.9 H, AST 43 H, ALT 19, Alkaline Phosphatase 161 H, Troponin I 0.02, Total Protein 7.8, Albumin 3.9 , Globulin 3.9, Albumin/Globulin Ratio 1.0 L, TSH 1.290, Free T4 3.02 H, RBC 3.81 L, MCV 100.7 H, MCH 32.9 H, MCHC 32.7 L, RDW 21.7 H, MPV 10.6 H, Gran % 67.0, Lymphocytes % 17.0 L, Monocytes % 13.5 H, Eosinophils % 2.1, Basophils % 0.4, Absolute Granulocytes 5.2, Absolute Lymphocytes 1.3, Absolute Monocytes 1.1 H, Absolute Eosinophils 0.2, Absolute Basophils 0 Assessment/Plan Assessment: 81 years old female with PMH significant for CAD, HTN, HLD, DM, hypothyroidism, chronic back pain, SORIA/cirrhosis, and CKD Stage IIIB/IV noticed swelling of her legs and abdomen, associated with worsening SOB, and weakness in her LE s/p mechanical fall. Vitals at the time of admission blood pressure 124/78, respiratory rate of 20, pulse 71, afebrile saturating 95%. Labs pertinent for white blood cell count of 7800, H&H 12.5/38.3;platelet count of 156,000 and MCV of 100.7. Serum chemistries pertinent for sodium of 140, potassium 4.8, bicarbonate of 28, anion gap of 14, BUN 53 with a cracking of 2.0. LFTs pertinent for , direct 0.9, AST/L2 43/19 and an alkaline phosphatase of 161. First set of troponin 0.02 total bili of 1.5. UA not received. Chest x-ray: Low lung volumes with linear left basilar atelectasis. Bronchial wall thickening can be seen with a small airways process such as asthma or atypical/viral infection. EKG revealed CT [place]; Large volume of ascites in the background of cirrhosis and likely portal hypertension. Anasarca. Findings suggest volume overload. In the ER patient received treatment with albuterol, ipratropium and fentanyl patch. She was attempted to be ambulated in the ER and was unable to stand due to her increasing ascites. Assessment and Plan: #Ascites 2/2 decompensated liver from SORIA Will need therpautic IR guided ascitic tap in AM. IR F/U in AM - please place consult. F/U cell count, culture and diff Meanwhile continue Spironolactone 25 mg daily, Lasix 40 mg Wednesday, nadolol 20 mg Consider GI consult in AM #Mechanical fall Secondary to deconditioning PT eval in a.m. Maintain on fall precautions #Hypothyroidism Continue on levothyroxine 0.175 mg Check TSH, FT4 #Diabetes mellitus Continue on Levemir 10 units twice daily and NovoLog sliding scale Accu-Cheks 3 times daily at bedtime #Hyperlipidemia Continue on lovastatin 20 mg daily #GERD Continue on Prilosec 40 mg daily p.o. #Gout Continue on allopurinol 100 mg daily #Hypertension Continue Norvasc 10 mg daily p.o. #Parkinson's Continue on Sinemet 47765 mg 3 times daily #Acute on chronic lower back pain Continue Lidoderm patch and fentanyl patch #Urinary incontinence Continue on Myrbetriq 50 mg daily p.o. -DVT prophylaxis Heparin 5000 nostrils daily SC Diet Diabetic CODE STATUS Full Problem List: 1. Ascites 2. Gait instability
[2017-09-04 06:19] VITALS: BP 112/66
--- NOTE | 2017-09-04 06:53 | Admission Certification ---
Admission Certification Certification Statement - As attending physician, I certify that at the time of - admission, based on clinical presentation, severity of - symptoms, need for further diagnostic testing and - therapeutic interventions, and risk of adverse outcomes - without in-hospital treatment, in my clinical assessment, - this patient requires an acute hospital stay for a minimum - of two nights or longer. I have also considered psychsocial - factors such as support system, advanced age, financial - issues, cognitive issues, and failed out-patient treatments, - past re-admission history, safety of patient, and lack of - compliance as applicable. Specific rationale supporting this admission is: Recurrent ascites secondary to cirrhosis, gait instability
[2017-09-04 09:09] LABS: ABSOLUTE BASOPHIL COUNT 0 /CUMM (0.0-0.2); ABSOLUTE EOSINOPHIL COUNT 0.1 /CUMM (0.0-0.7); ABSOLUTE GRANULOCYTE CT 2.1 /CUMM (1.4-6.5); ABSOLUTE LYMPH COUNT 1.2 /CUMM (1.2-3.4); ABSOLUTE MONOCYTE COUNT 0.6 /CUMM (0.10-0.60); BASOPHIL % 0.4 % (0.0-2.0); EOSINOPHIL % 1.9 % (0-5); MEAN CORPUSCULAR HGB 33.2 PG (27.0-31.0); MEAN CORPUSCULAR HGB CONC 33.3 G/DL (33.0-37.0); MEAN CORPUSCULAR VOLUME 99.7 FL (81.0-99.0); MEAN PLATELET VOLUME 10.3 FL (7.4-10.4); RBC DISTRIBUTION WIDTH 20.9 % (11.5-14.5); RED BLOOD CELL CT 2.93 /CUMM (4.20-5.40)
--- NOTE | 2017-09-04 11:10 | Cons- Endocrinology ---
General Information and HPI Consulting Request Date of Consult: 09/04/17 Requested By: MEDICAL TEAM Reason for Consult: abnormal thyroid tests and hypogllycemia Source of Information: patient, old records Exam Limitations: no limitations History of Present Illness: This 81-year-old woman with a known history of severe liver disease and ascites came to the emergency room because of increasing weakness and shortness of breath. She also has chronic kidney disease. The patient has noted increased abdominal swelling and massive swelling of her lower legs. Her abdomen is become so swollen that she states she is getting short of breath even when talking. She was so weak that she could not get herself off the toilet at home and an ambulance was called. She has not had any nausea or vomiting but definitely has decreased appetite. She has had increased difficulty walking. The patient has a history of type 2 diabetes mellitus. She is on Levemir 10 units twice a day at home as well as sliding scale NovoLog. However she states she has been eating little. Her sugar this morning by fingerstick before breakfast was only 63. The patient has abnormal thyroid function tests with a normal TSH and an elevated free T4 of 3.02. This has been present for the past few readings that are in the [facility] computer. Allergies/Medications Allergies: Coded Allergies: Opioids - Morphine Analogues (ITCH, GI UPSET 08/03/16) Opioids-Meperidine and Related (ITCH, GI UPSET 08/03/16) Opioids-Methadone and Related (ITCH, GI UPSET 08/03/16) codeine (GI UPSET 08/03/16) morphine (ITCHING, GI UPSET 08/03/16) Home Med List: Allopurinol (Zyloprim) 100 MG TABLET 1 TAB PO DAILY GOUT (Reported) Amlodipine Besylate 10 MG TABLET 1 TAB PO DAILY BP (Reported) Carbidopa/Levodopa (Sinemet 25-100 MG Tablet) 25 MG-100 MG TABLET 1 TAB PO TID GAIT/TREMOR INSTABILITY (Reported) Cyanocobalamin (Vitamin B-12) 1,000 MCG TABLET 1 TAB PO DAILY SUPPLEMENT ( Reported) Duloxetine HCl (Cymbalta) 60 MG CAPSULE. 1 CAP PO SAT MENTAL HEALTH (Reported) Fentanyl (Duragesic) 12 MCG/HOUR PATCH.TD72 1 PAT TOP Q3D CHRONIC BACK PAIN . Furosemide 40 MG TABLET 1 TAB PO Wednesday DIURETIC (Reported) Insulin Aspart, Recombinant (Novolog Flexpen) 100 UNIT/ML INSULN.PEN 0 SQ TIDAC/HS DIABETES Please see instructions below and follow before meal sliding scale and bedtime sliding scale as prescribed. Insulin Detemir (Levemir) 100 UNIT/ML VIAL 10 UNITS SC BID DM (Reported) Levothyroxine Sodium (Synthroid) 175 MCG TABLET 1 TAB PO DAILY HYPOTHYROID . Lidocaine (Lidoderm) 5 % ADH..PATCH 1 PAT TOP DAILY CHRONIC BACK PAIN .may wear up to 12 hours Lovastatin 20 MG TABLET 1 TAB PO DAILY CHOLESTEROL (Reported) Magnesium Oxide (Magnesium) 500 MG CAPSULE 1 CAP PO DAILY SUPPLEMENT ( Reported) Mirabegron (Myrbetriq) 50 MG TAB.ER.24H 1 TAB PO DAILY BLADDER (Reported) Nadolol 20 MG TABLET 1 TAB PO DAILY BP (Reported) Omeprazole 40 MG CAPSULE.DR 1 CAP PO DAILY GI (Reported) Spironolactone 25 MG TABLET 1 TAB PO DAILY DIURETIC (Reported) Review of Systems Review of Systems Constitutional: Denies: chills, fever. Cardiovascular: Denies: chest pain. Respiratory: Reports: short of breath. GI: Reports: bloating, distention. Past History Travel History Traveled to [place] past 21 day No Medical History Blood Transfusion Hx: Yes Neurological: migraine, peripheral neuropathy EENT: NONE Cardiovascular: hypertension, hyperlipidemia Respiratory: NONE Gastrointestinal: GERD, portal hypertension, gastropathy varices Hepatic: cirrhosis Renal: urinary incontinence, KIDNEY FAILURE Musculoskeletal: gout, restless leg syndrome Psychiatric: depression Endocrine: diabetes, hypothyroidism Blood Disorders: thrombocytopenia Cancer(s): NONE [employer] SALES/Reproductive: NONE Other Medical Hx: Urinary incontinence Surgical History Surgical History: appendectomy, cholecystectomy, hysterectomy, BILAT KNEE REPLACEMENTS Family History Relations & Conditions If Any: FATHER (Had a history of brain aneurysm and of stroke at the age of 73). MOTHER (Mother at the age of 26 years, unknown cause). Psychosocial History Where Do You Live? Home Who Do You Live With? spouse Services at Home: None Primary Language: Kuwaiti Smoking Status: Never Smoked ETOH Use: denies use Illicit Drug Use: denies illicit drug use Living Will? no Functional Ability ADLs Independent: dressing, eating, toileting, bathing. Ambulation: walker IADLs Independent: shopping, housework, finances, food prep, telephone, medication admin. Needs Assist: transportation. Exam & Diagnostic Data Last 24 Hrs of Vital Signs/I&O Vital Signs Date Time Temp Pulse Resp B/P B/P Pulse O2 O2 Flow FiO2 Mean Ox Delivery Rate 09/04 957 68 110/82 / 0958 68 110/82 / 0800 Room Air 04/ 0619 98.9 68 20 112/66 92 Room Air 04/06 2340 97.8 71 20 124/78 95 Room Air 04/ 2301 98.0 86 20 140/82 97 Room Air 04/06 1938 97.8 66 18 139/75 94 Room Air 04/06 1643 97.6 72 20 118/76 95 Room Air Intake & Output 09/04 1600 09/04 0800 04/ 0000 Intake Total 110 Output Total 200 Balance 110 -200 Intake, IV 10 Intake, Oral 100 Number 0 Bowel Movements Output, Urine 200 Patient 223 lb 230 lb Weight Weight Bed scale Measurement Method Vital Signs Date Time Temp Pulse Resp B/P B/P Pulse O2 O2 Flow FiO2 Mean Ox Delivery Rate 09/04 957 68 110/82 09/04 0958 68 110/82 / 0800 Room Air / 0619 98.9 68 20 112/66 92 Room Air /06 2340 97.8 71 20 124/78 95 Room Air / 2301 98.0 86 20 140/82 97 Room Air 04/06 1938 97.8 66 18 139/75 94 Room Air /06 1643 97.6 72 20 118/76 95 Room Air Intake & Output 09/04 1600 09/04 0800 04/07 0000 Intake Total 110 Output Total 200 Balance 110 -200 Intake, IV 10 Intake, Oral 100 Number 0 Bowel Movements Output, Urine 200 Patient 223 lb 230 lb Weight Weight Bed scale Measurement Method Physical Exam General Appearance: alert, awake, anxious Head: normal appearance Respiratory: decreased breath sounds Cardiovascular: regular rate/rhythm Gastrointestinal: normal bowel sounds, soft, distention Extremities: anasarca Labs/Unruly Results: Laboratory Tests 09/04 09/03 0725 1806 Chemistry Sodium (137 - 145 mmol/L) 143 140 Potassium (3.5 - 5.1 mmol/L) 4.3 4.8 Chloride (98 - 107 mmol/L) 106 106 Carbon Dioxide (22 - 30 mmol/L) 26 20 L Anion Gap (5 - 16) 11 14 BUN (7 - 17 mg/dL) 51 H 53 H Creatinine (0.5 - 1.0 mg/dL) 2.1 H 2.0 H Estimated GFR (>60 ml/min) 23 L 24 L BUN/Creatinine Ratio (7 - 25 %) 24.3 26.5 H Glucose (65 - 99 mg/dL) 135 H Hemoglobin A1c (4.2 - 5.8 %) Pending Calcium (8.4 - 10.2 mg/dL) 10.9 H Total Bilirubin (0.2 - 1.3 mg/dL) 1.1 1.5 H Direct Bilirubin (< 0.4 mg/dL) 0.7 H 0.9 H AST (14 - 36 U/L) 29 43 H ALT (9 - 52 U/L) 21 19 Alkaline Phosphatase (<127 U/L) 109 161 H Troponin I (< 0.11 ng/ml) 0.02 Total Protein (6.3 - 8.2 g/dL) 6.0 L 7.8 Albumin (3.5 - 5.0 g/dL) 2.9 L 3.9 Globulin (1.9 - 4.2 gm/dL) 3.9 Albumin/Globulin Ratio (1.1 - 2.2 %) 1.0 L TSH (0.270 - 4.200 uIU/mL) 1.290 Free T4 (0.85 - 1.93 ng/dL) 3.02 H Hematology CBC w Diff Pending WBC (4.8 - 10.8 /CUMM) Pending 7.8 RBC (4.20 - 5.40 /CUMM) Pending 3.81 L Hgb (12.0 - 16.0 G/DL) Pending 12.5 Hct (37 - 47 %) Pending 38.3 MCV (81.0 - 99.0 FL) Pending 100.7 H MCH (27.0 - 31.0 PG) Pending 32.9 H MCHC (33.0 - 37.0 G/DL) Pending 32.7 L RDW (11.5 - 14.5 %) Pending 21.7 H Plt Count (130 - 400 /CUMM) Pending 156 MPV (7.4 - 10.4 FL) Pending 10.6 H Gran % (42.2 - 75.2 %) 67.0 Lymphocytes % (20.5 - 51.1 %) 17.0 L Monocytes % (1.7 - 9.3 %) 13.5 H Eosinophils % (0 - 5 %) 2.1 Basophils % (0.0 - 2.0 %) 0.4 Absolute Granulocytes (1.4 - 6.5 /CUMM) 5.2 Absolute Lymphocytes (1.2 - 3.4 /CUMM) 1.3 Absolute Monocytes (0.10 - 0.60 /CUMM) 1.1 H Absolute Eosinophils (0.0 - 0.7 /CUMM) 0.2 Absolute Basophils (0.0 - 0.2 /CUMM) 0 Assessment/Plan Assessment/Plan This 81-year-old woman has a known history of type 2 diabetes. She states she has been eating very little. She has chronic liver disease and has accumulated massive ascites. Her last paracentesis was about 6 weeks ago. The patient has noticed increased swelling of her belly and increased fluid in her lower legs. Her abdomen is so swollen that it makes her short of breath even when she tries to talk. The patient did have a low fingerstick blood sugar this morning of only 63. I would reduce the patient's Levemir to 10 units once a day in the morning. Her sliding scale NovoLog should be adjusted. Sliding scale NovoLog before meals should be less than 150 give no insulin, 151-200 give 2 units NovoLog, 201 -250 give 3 units NovoLog, 251-300 give 4 units NovoLog, 301-350 give 5 units NovoLog, 3 5104 100 give 6 units NovoLog. With regard to the patient's thyroid function test the patient is on levothyroxine 175 mcg daily at home. Her TSH is in the normal range at 1.2 and her free T4 is elevated at 3.02. This is due to some interfering substance with abnormal binding proteins due to her liver disease are other causes such as familial dysalbuminemic hyperthyroxinemia or transthyretin grne abnormalities. These disorders can interfere with the routine free T4 assay. As long as her TSH is normal I would ignore the high free T4. If we wish to investigate this further we could order a free T4 by dialysis method with mass spectrometry which would probably give us a free T4 value in the normal range. The patient needs a paracentesis and should be seen by the GI service. Consult Acknowledgment - Thank you for your consult request.
[2017-09-04 12:13] LABS: HEMATOCRIT 29.2 % (37-47); PLATELET COUNT 83 /CUMM (130-400)
[2017-09-04 12:31] LABS: PT 14.4 SEC (9.4-12.5)
[2017-09-04 15:04] VITALS: BP 120/60
[2017-09-04 15:49] LABS: PTT 33 SEC (25-37)
--- NOTE | 2017-09-04 16:11 | ULTRASOUND REPORT ---
EXAMINATION: US TRIPLEX LOWER EXTREMITY, RIGHT CLINICAL INFORMATION: Right lower extremity edema and pain. COMPARISON: Lower extremity Doppler performed 05/14/2017. TECHNIQUE: Color-flow triplex imaging with spectral analysis and compression Doppler were performed on the lower extremity. FINDINGS: Respiratory variation, normal compression and augmented flow are noted throughout the lower extremity. The visualized common femoral vein, superficial femoral vein, profunda femoral vein, popliteal vein and midcalf peroneal and posterior tibial venous segments show no evidence of deep venous thrombosis. There is a Guevara's cyst which measures 5.7 x 2.5 x 5.5 cm. IMPRESSION: No evidence of deep venous thrombosis involving the right lower extremity. Right Guevara's cyst.
--- NOTE | 2017-09-04 16:37 | PN- Att Addend ---
Attending Addendum Attending Brief Note Patient seen and examined at bedside. Discussed with patient as well as patient 's family member at bedside the care plan. Patient with past medical history of [place] and cirrhosis with decompensation and requiring monthly paracentesis. Patient on exam has abdominal ascites which is tense. Patient sees Dr. Bradley as an outpatient. We will get a gastroenterology consult. Her repeat hemoglobin today is 9.7 which is close to her baseline. We discussed the case with IR about doing a paracentesis and there are going to do it on Wednesday. Her free T4 is high at 3.02 though her TSH is normal. We will get endocrine consult to get their opinion. She has some right leg tenderness with mild erythema and warmth. Both her legs are swollen. We will get ultrasound to rule out DVT on the right leg.
--- NOTE | 2017-09-04 16:52 | PN- Housestaff ---
Subjective Follow-up For: Recurrent ascites secondary to decompensated cirrhosis Gait instability Complaints: shortness of breath Subjective: Patient seen and examined at bedside. Appears to be in moderate discomfort secondary to worsening abdominal swelling. She is short of breath and is unable to walk secondary to the ascites. Denies any chest pain, palpitations, nausea, vomiting, urinary or bowel symptoms. Review of Systems Constitutional: Reports: malaise, weakness. EENTM: Reports: no symptoms. Cardiovascular: Reports: no symptoms. Respiratory: Reports: short of breath. Gastrointestinal: Reports: abdominal pain, bloating, distention. Objective Last 24 Hrs of Vital Signs/I&O Vital Signs Date Time Temp Pulse Resp B/P B/P Pulse O2 O2 Flow FiO2 Mean Ox Delivery Rate 09/04 1504 98.1 65 20 120/60 91 09/04 1430 Room Air 09/04 0958 68 110/82 09/04 0958 68 110/82 09/04 0800 Room Air 09/04 0619 98.9 68 20 112/66 92 Room Air 09/03 2340 97.8 71 20 124/78 95 Room Air 09/03 2301 98.0 86 20 140/82 97 Room Air 09/03 1938 97.8 66 18 139/75 94 Room Air 09/03 1643 97.6 72 20 118/76 95 Room Air Intake & Output 09/04 1600 09/04 0800 09/04 0000 Intake Total 440 110 Output Total 200 Balance 440 110 -200 Intake, IV 10 Intake, Oral 440 100 Number 0 0 Bowel Movements Output, Urine 200 Patient 101.321 kg 104.326 kg Weight Weight Bed scale Measurement Method Physical Exam General Appearance: Alert, Oriented X3, Cooperative, Mild Distress Skin: No Rashes, No Breakdown Skin Temp/Moisture Exam: Warm/Dry Sepsis Skin Exam (color): Normal for Ethnicity HEENT: Atraumatic, PERRLA, EOMI Neck: No JVD Lymphatic: Cervical nl Cardiovascular: Regular Rate, Normal S1, Normal S2, No Murmurs Lungs: Clear to Auscultation, Normal Air Movement Abdomen: distended, tense, fluid thrill, caput medusae Extremities: 2+ pedal edema Current Medications: Current Medications Sig/Jennifer Start time Last Medication Dose Route Stop Time Status Admin Albuterol Sulfate 3 ML ONCE ONE 09/03 1844 DC 09/03 INH 04/06 1846 1849 Allopurinol 100 MG DAILY 09/04 1000 AC 09/04 PO 0958 Amlodipine Besylate 10 MG DAILY 09/04 1000 AC 09/04 PO 0958 Carbidopa/Levodopa 1 TAB TID 09/04 1000 AC 09/04 PO 0958 Cyanocobalamin 1,000 MCG DAILY 09/04 1000 AC 09/04 PO 0958 Fentanyl Citrate 12 MCG Q72H 09/03 1945 AC 09/03 TOP 2005 Furosemide 40 MG 09/06 1000 AC PO Heparin Sodium 5,000 UNIT Q8 09/04 0600 AC 09/04 (Porcine) SC 0540 Insulin Aspart 0 TIDAC 09/04 0800 AC SC Insulin Aspart 0 TIDAC 09/04 0800 CAN SC Insulin Detemir 10 UNITS BID 09/04 0100 AC 09/04 SC 1000 Ipratropium [place] 2.5 ML ONCE ONE 09/03 1845 DC 09/03 INH 09/03 1846 184 Levothyroxine Sodium 0.175 MG DAILY 09/04 1000 AC 09/04 PO 0542 Lidocaine 1 PAT DAILY 09/04 1000 CAN EXT Lidocaine 1 PAT DAILY 09/04 0230 AC 09/04 EXT 1001 Lovastatin 20 MG 1700 09/04 1700 AC PO Magnesium Oxide 400 MG DAILY 09/04 1000 AC 09/04 PO 0958 Mirabegron 25 MG DAILY 09/04 1000 AC 09/04 PO 0958 Nadolol 20 MG DAILY 09/04 1000 AC 09/04 PO 0958 Non-Formulary 0 SEE ADMIN CRITERIA 09/04 0100 DC Medication ANY Omeprazole 40 MG DAILY AC 09/04 0700 AC 09/04 PO 0542 Spironolactone 25 MG DAILY 09/04 1000 AC 09/04 PO 0958 Assessment/Plan Assessment: 81-year-old female with CAD, HTN, HLD, DM, hypothyroidism, chronic back pain, SORIA/cirrhosis, and CKD Stage IIIB/IV presented to the ED with complaint of worsening lower extremity edema, increased abdominal distention and shortness of breath worsening over the past several weeks but has been going on really since March of last year. She is been seen and evaluated at this hospital several times for similar symptoms and has had abdominal fluid drained. CXR:Low lung volumes with linear left basilar atelectasis. Bronchial wall thickening can be seen with a small airways process such as asthma or atypical/viral infection. CT abdomen and pelvis without IV contrast: Large volume of ascites in the background of cirrhosis and likely portal hypertension. Anasarca. Findings suggest volume overload. Assessment Recurrent ascites secondary to decompensated cirrhosis Shortness of breath, mechanical compression secondary to ascites Gait instability Cirrhosis secondary to [place] Hypertension Hyperlipidemia GERD Diabetes Plan * Fall precautions, orthostatic vitals * PT evaluation * Plan for therapeutic paracentesis on Wednesday. * Continue Spironolactone 25 mg daily, Lasix 40 mg Wednesday, nadolol 20 mg * GI Consult appreciated * Elevated TSH, normal T4,Endocrinology consulted. No change in meds as appears to be a binding protein detected. * 3 times a day Accu-Cheks, sliding scale insulin as per endocrinology. * Right leg tenderness and erythema, ultrasound negative for DVT * Continue other home medications * DVT prophylaxis subcutaneous heparin * Full code Problem List: 1. Volume overload 2. Ascites 3. Gait instability 4. Cirrhosis Pain Ratin Pain Location: na Pain Goal: Remain pain free Pain Plan: tylenol Tomorrow's Labs & Rationales: cbc.. low hb
[2017-09-04 22:28] VITALS: BP 124/70
[2017-09-05 06:20] VITALS: BP 134/68
--- NOTE | 2017-09-05 07:59 | PN- Housestaff ---
See Addendum Subjective Follow-up For: Recurrent ascites secondary to decompensated cirrhosis Gait instability Subjective: Patient seen and examined. Resting comfortably. Having breakfast. Does not report shortness of breath at rest. However reports shortness of breath on ambulation. Continues to complain of abdominal distention. Is scheduled to be in going to IR for a therapeutic paracentesis on morning Her blood sugars are low every morning 51 this am. Levemir night dose has been discontinued. Review of Systems Constitutional: Reports: see HPI. Objective Last 24 Hrs of Vital Signs/I&O Vital Signs Date Time Temp Pulse Resp B/P B/P Pulse O2 O2 Flow FiO2 Mean Ox Delivery Rate 09/05 06 98.4 66 20 134/68 92 Room Air 09/04 2228 97.9 71 20 124/70 92 Room Air 09/04 1600 91 Room Air 09/04 1504 98.1 65 20 120/60 91 09/04 1430 Room Air 09/04 0958 68 110/82 09/04 0958 68 110/82 Intake & Output 09/05 1600 09/05 0800 09/05 0000 Intake Total 600 Output Total Balance 600 Intake, Oral 600 Number 0 Bowel Movements Patient 224 lb Weight Weight Bed scale Measurement Method Physical Exam General Appearance: Alert, Oriented X3, Cooperative HEENT: Atraumatic Cardiovascular: Normal S1, Normal S2 Lungs: Clear to Auscultation Abdomen: Normal Bowel Sounds, No Tenderness, distended Neurological: Normal Speech Extremities: 2+edema Other Physical Findings: right leg tenderness with mild erythema and warmth Current Medications: Current Medications Sig/Jennifer Start time Last Medication Dose Route Stop Time Status Admin Allopurinol 100 MG DAILY 09/04 1000 AC 09/04 PO 58 Amlodipine Besylate 10 MG DAILY 09/04 1000 AC 09/04 PO 0958 Carbidopa/Levodopa 1 TAB TID 09/04 1000 AC 09/04 PO 211 Cyanocobalamin 1,000 MCG DAILY 09/04 1000 AC 09/04 PO 09 Fentanyl Citrate 12 MCG Q72H 09/03 1945 AC 09/03 TOP 2005 Furosemide 40 MG 09/06 1000 AC PO Heparin Sodium 5,000 UNIT Q8 09/04 06 AC 09/05 (Porcine) SC 0538 Insulin Aspart 0 TIDAC 09/04 0800 AC SC Insulin Detemir 10 UNITS BID 09/04 0100 AC 09/04 SC 2117 Levothyroxine Sodium 0.175 MG DAILY 09/04 1000 AC 09/04 PO 0542 Lidocaine 1 PAT DAILY 09/04 0230 AC 09/04 EXT 1001 Lovastatin 20 MG 1700 09/04 1700 AC 09/04 PO 1820 Magnesium Oxide 400 MG DAILY 09/04 1000 AC 09/04 PO 0958 Mirabegron 25 MG DAILY 09/04 1000 AC 09/04 PO 0958 Nadolol 20 MG DAILY 09/04 1000 AC 09/04 PO 0958 Omeprazole 40 MG DAILY AC 09/04 0700 AC 09/05 PO 0538 Spironolactone 25 MG DAILY 09/04 1000 AC 09/04 PO 0958 Last 24 Hrs of Lab/Unruly Results Last 24 Hrs of Labs/Mics: Laboratory Tests 09/05/17 0715: Anion Gap 9, Estimated GFR 25 L, BUN/Creatinine Ratio 28.4 H, CBC w Diff Pending, WBC Pending, RBC Pending, Hgb Pending, Hct Pending, MCV Pending, MCH Pending, MCHC Pending, RDW Pending, Plt Count Pending, MPV Pending 09/04/17 1140: PT 14.4 H, INR 1.32 H, APTT 33 09/04/17 1127: APTT Cancelled Microbiology 09/04 1000 BODY FLUID: Body Fluid Culture - COLB 09/04 999 BODY FLUID: Gram Stain - COLB Assessment/Plan Assessment: 81-year-old female with CAD, HTN, HLD, DM, hypothyroidism, chronic back pain, SORIA/cirrhosis, and CKD Stage IIIB/IV presented to the ED with complaint of worsening lower extremity edema, increased abdominal distention and shortness of breath worsening over the past several weeks but has been going on really since March of last year. She is been seen and evaluated at this hospital several times for similar symptoms and has had abdominal fluid drained. 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 NPO wednesday night * Continue Spironolactone 25 mg daily, Lasix 40 mg Wednesday, nadolol 20 mg * GI Consult appreciated * Elevated TSH, normal T4,Endocrinology consulted. No change in meds as appears to be a binding protein detected. * 3 times a day Accu-Cheks, sliding scale insulin as per endocrinology. * After discussing with night dose of Levemir discontinued * Right leg tenderness and erythema, ultrasound negative for DVT * CBC all lines are down but stable. Continue to monitor * Albumin with paracentesis planned on Wednesday * Continue other home medications * DVT prophylaxis subcutaneous heparin * Full code Problem List: 1. Ascites 2. Volume overload Pain Ratin Pain Location: n/a Pain Goal: Pain 4 or less Pain Plan: prn Tomorrow's Labs & Rationales: cbc
[2017-09-05 08:26] LABS: ABSOLUTE BASOPHIL COUNT 0 /CUMM (0.0-0.2); ABSOLUTE EOSINOPHIL COUNT 0.1 /CUMM (0.0-0.7); ABSOLUTE GRANULOCYTE CT 2.6 /CUMM (1.4-6.5); ABSOLUTE LYMPH COUNT 1.3 /CUMM (1.2-3.4); ABSOLUTE MONOCYTE COUNT 0.7 /CUMM (0.10-0.60); BASOPHIL % 0.4 % (0.0-2.0); EOSINOPHIL % 2.8 % (0-5); GRANULOCYTE % 54.6 % (42.2-75.2); HEMATOCRIT 29.3 % (37-47); MEAN CORPUSCULAR HGB 33.2 PG (27.0-31.0); MEAN CORPUSCULAR VOLUME 100.4 FL (81.0-99.0); MEAN PLATELET VOLUME 10.5 FL (7.4-10.4); RBC DISTRIBUTION WIDTH 21.2 % (11.5-14.5); RED BLOOD CELL CT 2.92 /CUMM (4.20-5.40); WHITE BLOOD CELL COUNT 4.8 /CUMM (4.8-10.8)
[2017-09-05 09:36] LABS: PLATELET COUNT 80 /CUMM (130-400)
--- NOTE | 2017-09-05 10:21 | PN- Diabetes ---
Assessment/Plan Diabetes Assessment: The patient had a low sugar again this morning of 51. I had recommended yesterday in my consultation note that her nighttime Levemir be discontinued because of low sugars in the a.m. The patient should be on just Levemir 10 units once a day. However she did receive 8 units of Levemir last night. Plan: Suggest that the patient needs just 10 units of Levemir once a day in the morning. She should not receive any bedtime Levemir. Continue sliding scale NovoLog before meals only as written for a blood sugar greater than 150. Patient will have a paracentesis tomorrow. GI consult should be done.. Subjective Subjective: Feels short of breath when speaking Review of Systems Constitutional: Denies: chills, fever. Cardiovascular: Denies: chest pain. Respiratory: Reports: cough, short of breath. Gastrointestinal: Reports: abdominal pain (related to abdominal distentio). Denies: nausea, vomiting. Objective Last 24 Hrs of Vital Signs/I&O Vital Signs Date Time Temp Pulse Resp B/P B/P Pulse O2 O2 Flow FiO2 Mean Ox Delivery Rate 09/06 619 98.4 66 20 134/68 92 Room Air 09/048 97.9 71 20 124/70 92 Room Air 09/04 1600 91 Room Air 09/04 1504 98.1 65 20 120/60 91 09/04 1430 Room Air Intake & Output 09/05 1600 09/05 0000 Intake Total 600 Output Total Balance 600 Intake, Oral 600 Number 0 Bowel Movements Patient 224 lb Weight Weight Bed scale Measurement Method Vital Signs Date Time Temp Pulse Resp B/P B/P Pulse O2 O2 Flow FiO2 Mean Ox Delivery Rate 09/06 619 98.4 66 20 134/68 92 Room Air 09/04 2228 97.9 71 20 124/70 92 Room Air 09/04 1600 91 Room Air 09/04 1504 98.1 65 20 120/60 91 09/04 1430 Room Air Intake & Output 09/05 1600 09/05 0000 Intake Total 600 Output Total Balance 600 Intake, Oral 600 Number 0 Bowel Movements Patient 224 lb Weight Weight Bed scale Measurement Method Physical Exam General Appearance: alert, awake Head: normal appearance Neck: normal inspection Cardiovascular: regular rate/rhythm Abdomen: normal bowel sounds Extremities: anasarca Current Medications: Current Medications Sig/Jennifer Start time Last Medication Dose Route Stop Time Status Admin Allopurinol 100 MG DAILY 09/04 1000 AC 09/05 PO 1016 Amlodipine Besylate 10 MG DAILY 09/04 1000 AC 09/05 PO 1017 Carbidopa/Levodopa 1 TAB TID 09/04 1000 AC 09/05 PO 1016 Cyanocobalamin 1,000 MCG DAILY 09/04 1000 AC 09/05 PO 1016 Fentanyl Citrate 12 MCG Q72H 09/03 1945 AC 09/03 TOP 2006 Furosemide 40 MG 09/06 1000 AC PO Heparin Sodium 5,000 UNIT Q8 09/04 0600 AC 09/05 (Porcine) SC 0538 Insulin Aspart 0 TIDAC 09/04 08 AC SC Insulin Detemir 8 UNITS AT BEDTIME 09/05 2200 CAN SC Insulin Detemir 10 UNITS DAILY 09/05 1000 AC 09/05 SC 1017 Insulin Detemir 10 UNITS BID 09/04 0100 DC 09/04 SC 2117 Levothyroxine Sodium 0.175 MG DAILY 09/04 1000 AC 09/05 PO 1016 Lidocaine 1 PAT DAILY 09/04 0230 AC 09/05 EXT 1017 Lovastatin 20 MG 1700 09/04 1700 AC 09/04 PO 1820 Magnesium Oxide 400 MG DAILY 09/04 1000 AC 09/05 PO 1017 Mirabegron 25 MG DAILY 09/04 1000 AC 09/05 PO 1016 Nadolol 20 MG DAILY 09/04 1000 AC 09/05 PO 1016 Omeprazole 40 MG DAILY AC 09/04 0700 AC 09/05 PO 0538 Spironolactone 25 MG DAILY 09/04 1000 AC 09/05 PO 1016 Findings Pertinent Lab/Unruly Results: Laboratory Tests 09/05 09/04 09/04 0715 1140 1127 Chemistry Sodium (137 - 145 mmol/L) 139 Potassium (3.5 - 5.1 mmol/L) 4.8 Chloride (98 - 107 mmol/L) 108 H Carbon Dioxide (22 - 30 mmol/L) 22 Anion Gap (5 - 16) 9 BUN (7 - 17 mg/dL) 54 H Creatinine (0.5 - 1.0 mg/dL) 1.9 H Estimated GFR (>60 ml/min) 25 L BUN/Creatinine Ratio (7 - 25 %) 28.4 H Coagulation PT (9.4 - 12.5 SEC) 14.4 H INR (0.90 - 1.19) 1.32 H APTT (25 - 37 SEC) 33 Cancelled Hematology CBC w Diff NO MAN DIFF REQ WBC (4.8 - 10.8 /CUMM) 4.8 RBC (4.20 - 5.40 /CUMM) 2.92 L Hgb (12.0 - 16.0 G/DL) 9.7 L Hct (37 - 47 %) 29.3 L MCV (81.0 - 99.0 FL) 100.4 H MCH (27.0 - 31.0 PG) 33.2 H MCHC (33.0 - 37.0 G/DL) 33.0 RDW (11.5 - 14.5 %) 21.2 H Plt Count (130 - 400 /CUMM) 80 L MPV (7.4 - 10.4 FL) 10.5 H Gran % (42.2 - 75.2 %) 54.6 Lymphocytes % (20.5 - 51.1 %) 27.9 Monocytes % (1.7 - 9.3 %) 14.3 H Eosinophils % (0 - 5 %) 2.8 Basophils % (0.0 - 2.0 %) 0.4 Absolute Granulocytes (1.4 - 6.5 /CUMM) 2.6 Absolute Lymphocytes (1.2 - 3.4 /CUMM) 1.3 Absolute Monocytes (0.10 - 0.60 /CUMM) 0.7 H Absolute Eosinophils (0.0 - 0.7 /CUMM) 0.1 Absolute Basophils (0.0 - 0.2 /CUMM) 0 09/04 09/04 09/03 0725 [id number] 1806 Chemistry Sodium (137 - 145 mmol/L) 143 140 Potassium (3.5 - 5.1 mmol/L) 4.3 4.8 Chloride (98 - 107 mmol/L) 106 106 Carbon Dioxide (22 - 30 mmol/L) 26 20 L Anion Gap (5 - 16) 11 14 BUN (7 - 17 mg/dL) 51 H 53 H Creatinine (0.5 - 1.0 mg/dL) 2.1 H 2.0 H Estimated GFR (>60 ml/min) 23 L 24 L BUN/Creatinine Ratio (7 - 25 %) 24.3 26.5 H Glucose (65 - 99 mg/dL) 135 H Hemoglobin A1c (4.2 - 5.8 %) Pending Calcium (8.4 - 10.2 mg/dL) 10.9 H Total Bilirubin (0.2 - 1.3 mg/dL) 1.1 1.5 H Direct Bilirubin (< 0.4 mg/dL) 0.7 H 0.9 H AST (14 - 36 U/L) 29 43 H ALT (9 - 52 U/L) 21 19 Alkaline Phosphatase (<127 U/L) 109 161 H Troponin I (< 0.11 ng/ml) 0.02 Total Protein (6.3 - 8.2 g/dL) 6.0 L 7.8 Albumin (3.5 - 5.0 g/dL) 2.9 L 3.9 Globulin (1.9 - 4.2 gm/dL) 3.9 Albumin/Globulin Ratio (1.1 - 2.2 %) 1.0 L TSH (0.270 - 4.200 uIU/mL) 1.290 Free T4 (0.85 - 1.93 ng/dL) 3.02 H Hematology CBC w Diff NO MAN DIFF REQ WBC (4.8 - 10.8 /CUMM) 4.0 L 7.8 RBC (4.20 - 5.40 /CUMM) 2.93 L 3.81 L Hgb (12.0 - 16.0 G/DL) 9.7 L 12.5 Hct (37 - 47 %) 29.2 L 38.3 MCV (81.0 - 99.0 FL) 99.7 H 100.7 H MCH (27.0 - 31.0 PG) 33.2 H 32.9 H MCHC (33.0 - 37.0 G/DL) 33.3 32.7 L RDW (11.5 - 14.5 %) 20.9 H 21.7 H Plt Count (130 - 400 /CUMM) 83 L 156 MPV (7.4 - 10.4 FL) 10.3 10.6 H Gran % (42.2 - 75.2 %) 53.0 67.0 Lymphocytes % (20.5 - 51.1 %) 29.9 17.0 L Monocytes % (1.7 - 9.3 %) 14.8 H 13.5 H Eosinophils % (0 - 5 %) 1.9 2.1 Basophils % (0.0 - 2.0 %) 0.4 0.4 Absolute Granulocytes (1.4 - 6.5 /CUMM) 2.1 5.2 Absolute Lymphocytes (1.2 - 3.4 /CUMM) 1.2 1.3 Absolute Monocytes (0.10 - 0.60 /CUMM) 0.6 1.1 H Absolute Eosinophils (0.0 - 0.7 /CUMM) 0.1 0.2 Absolute Basophils (0.0 - 0.2 /CUMM) 0 0 Other Body Source Fluid Total Protein Cancelled
[2017-09-05 15:08] VITALS: BP 120/78
--- NOTE | 2017-09-05 16:03 | Cons- Gastroenterology ---
General Information and HPI Consulting Request Date of Consult: 09/05/17 Requested By: Elvis Taylor MD Reason for Consult: Management of cirrhosis Source of Information: patient, family, old records History of Present Illness: The patient has a diagnosis of SORIA induced cirrhosis, with ascites/edema which has required 2 large-volume paracenteses; portal hypertensive gastropathy, on a beta elvira and iron supplementation. She also has chronic kidney disease attributed to diabetes mellitus and hypertension, and perhaps exacerbated by diuretics. She is on a small diuretic dose. She is now admitted with recurrent ascites, dyspnea on exertion, difficulty with ambulation (right leg weakness). In general she has no heartburn on antisecretory therapy, no dysphagia, no nausea or vomiting, and no abdominal pain. Her bowel movements are regular and normal. There has been no blood per rectum or melena. There's been no jaundice , pruritus, bleeding or bruising. Allergies/Medications Allergies: Coded Allergies: Opioids - Morphine Analogues (ITCH, GI UPSET 08/03/16) Opioids-Meperidine and Related (ITCH, GI UPSET 08/03/16) Opioids-Methadone and Related (ITCH, GI UPSET 08/03/16) codeine (GI UPSET 08/03/16) morphine (ITCHING, GI UPSET 08/03/16) Home Med List: Allopurinol (Zyloprim) 100 MG TABLET 1 TAB PO DAILY GOUT (Reported) Amlodipine Besylate 10 MG TABLET 1 TAB PO DAILY BP (Reported) Carbidopa/Levodopa (Sinemet 25-100 MG Tablet) 25 MG-100 MG TABLET 1 TAB PO TID GAIT/TREMOR INSTABILITY (Reported) Cyanocobalamin (Vitamin B-12) 1,000 MCG TABLET 1 TAB PO DAILY SUPPLEMENT ( Reported) Duloxetine HCl (Cymbalta) 60 MG CAPSULE. 1 CAP PO [facility] (Reported) Fentanyl (Duragesic) 12 MCG/HOUR PATCH.TD72 1 PAT TOP Q3D CHRONIC BACK PAIN . Furosemide 40 MG TABLET 1 TAB PO Wednesday DIURETIC (Reported) Insulin Aspart, Recombinant (Novolog Flexpen) 100 UNIT/ML INSULN.PEN 0 SQ TIDAC/HS DIABETES Please see instructions below and follow before meal sliding scale and bedtime sliding scale as prescribed. Insulin Detemir (Levemir) 100 UNIT/ML VIAL 10 UNITS SC BID DM (Reported) Levothyroxine Sodium (Synthroid) 175 MCG TABLET 1 TAB PO DAILY HYPOTHYROID . Lidocaine (Lidoderm) 5 % ADH..PATCH 1 PAT TOP DAILY CHRONIC BACK PAIN .may wear up to 12 hours Lovastatin 20 MG TABLET 1 TAB PO DAILY CHOLESTEROL (Reported) Magnesium Oxide (Magnesium) 500 MG CAPSULE 1 CAP PO DAILY SUPPLEMENT ( Reported) Mirabegron (Myrbetriq) 50 MG TAB.ER.24H 1 TAB PO DAILY BLADDER (Reported) Nadolol 20 MG TABLET 1 TAB PO DAILY BP (Reported) Omeprazole 40 MG CAPSULE.DR 1 CAP PO DAILY GI (Reported) Spironolactone 25 MG TABLET 1 TAB PO DAILY DIURETIC (Reported) Current Medications: Current Medications Sig/Jennifer Start time Last Medication Dose Route Stop Time Status Admin Allopurinol 100 MG DAILY 09/04 1000 AC 09/05 PO 1016 Amlodipine Besylate 10 MG DAILY 09/04 1000 AC 09/05 PO 1017 Carbidopa/Levodopa 1 TAB TID 09/04 1000 AC 09/05 PO 1016 Cyanocobalamin 1,000 MCG DAILY 09/04 1000 AC 09/05 PO 1016 Fentanyl Citrate 12 MCG Q72H 09/03 1945 AC 09/03 TOP 2006 Furosemide 40 MG 09/06 1000 AC PO Heparin Sodium 5,000 UNIT Q8 09/04 0600 AC 09/05 (Porcine) SC 1311 Insulin Aspart 0 TIDAC 09/04 0800 AC SC Insulin Detemir 8 UNITS AT BEDTIME 09/05 2200 CAN SC Insulin Detemir 10 UNITS DAILY 09/05 1000 AC 09/05 SC 1017 Insulin Detemir 10 UNITS BID 09/04 0100 DC 09/04 SC 2117 Levothyroxine Sodium 0.175 MG DAILY 09/04 1000 AC 09/05 PO 1016 Lidocaine 1 PAT DAILY 09/04 0230 AC 09/05 EXT 1017 Lovastatin 20 MG 1700 09/04 1700 AC 09/04 PO 1820 Magnesium Oxide 400 MG DAILY 09/04 1000 AC 09/05 PO 1017 Mirabegron 25 MG DAILY 09/04 1000 AC 09/05 PO 1016 Nadolol 20 MG DAILY 09/04 1000 AC 09/05 PO 1016 Omeprazole 40 MG DAILY AC 09/04 0700 AC 09/05 PO 0538 Spironolactone 25 MG DAILY 09/04 1000 AC 09/05 PO 1016 Past History Travel History Traveled to [place] past 21 day No Medical History Blood Transfusion Hx: Yes Neurological: migraine, peripheral neuropathy EENT: NONE Cardiovascular: hypertension, hyperlipidemia Respiratory: NONE Gastrointestinal: GERD, portal hypertension, gastropathy varices Hepatic: cirrhosis Renal: urinary incontinence, KIDNEY FAILURE Musculoskeletal: gout, restless leg syndrome Psychiatric: depression Endocrine: diabetes, hypothyroidism Blood Disorders: thrombocytopenia Cancer(s): NONE CENTRAL SERVICES TECH/Reproductive: NONE Other Medical Hx: Urinary incontinence Surgical History Surgical History: appendectomy, cholecystectomy, hysterectomy, BILAT KNEE REPLACEMENTS Family History Relations & Conditions If Any: FATHER (Had a history of brain aneurysm and of stroke at the age of 73). MOTHER (Mother at the age of 26 years, unknown cause). Psychosocial History Where Do You Live? Home Who Do You Live With? spouse Services at Home: None Primary Language: Chinese Smoking Status: Never Smoked ETOH Use: denies use Illicit Drug Use: denies illicit drug use Living Will? no Functional Ability ADLs Independent: dressing, eating, toileting, bathing. Ambulation: walker IADLs Independent: shopping, housework, finances, food prep, telephone, medication admin. Needs Assist: transportation. Review of Systems Review of Systems Constitutional: Reports: malaise, weakness. Denies: chills, fever, unexplained weight loss. EENTM: Denies: icterus, epistaxis. Cardiovascular: Reports: edema. Denies: chest pain, palpitations, syncope. Respiratory: Reports: short of breath. Denies: cough, hemoptysis. GI: Reports: see HPI. Genitourinary: Denies: dysuria, hematuria. Musculoskeletal: Reports: back pain. Denies: muscle stiffness, neck pain. Skin: Denies: jaundice, lesions. Neurological/Psychological: Denies: cognitive dysfunction, confusion, tremors. Hematologic/Endocrine: Denies: bruising, bleeding. Exam & Diagnostic Data Vital Signs and I&O Vital Signs Date Time Temp Pulse Resp B/P B/P Pulse O2 O2 Flow FiO2 Mean Ox Delivery Rate 09/05 1508 97.8 73 20 120/78 91 09/05 1017 60 120/82 09/05 1016 60 120/82 09/05 0800 Room Air 09/05 0620 98.4 66 20 134/68 92 Room Air 09/04 2228 97.9 71 20 124/70 92 Room Air 09/04 1600 91 Room Air Intake & Output 09/05 04009/04 0400 09/03 0400 Intake Total 1080 600 550 Output Total 200 Balance 1080 600 550 -200 Intake, IV 10 Intake, Oral 1080 600 540 Number 2 0 Bowel Movements Output, Urine 200 Patient 224 lb 223 lb 230 lb Weight Weight Bed scale Bed scale Reported by Patient Measurement Method Physical Exam: Well-developed well-nourished, in no apparent distress. Alert and oriented with normal cognition, and with no asterixis. Skin without jaundice, rash, lesion, or excoriation, purpura, petechiae; normal turgor; several spider telangiectasias, no palmar erythema. No adenopathy. Sclera anicteric. Oropharynx normal. Tongue normal. Neck supple without thyromegaly or mass. Heart regular rhythm. Lungs clear bilaterally with decreased sounds at the bases. Abdomen is obese with pannus, and with moderate distention; normal bowel sounds, without bruits; no tenderness, mass or palpable organomegaly. There is a caput medusa. There is a reducible umbilical hernia. Extremities with trace pretibial edema, and edematous thighs. Normal distal pulses. Results Pertinent Lab Results: Laboratory Tests 09/05 09/04 09/04 0715 1140 1127 Chemistry Sodium (137 - 145 mmol/L) 139 Potassium (3.5 - 5.1 mmol/L) 4.8 Chloride (98 - 107 mmol/L) 108 H Carbon Dioxide (22 - 30 mmol/L) 22 Anion Gap (5 - 16) 9 BUN (7 - 17 mg/dL) 54 H Creatinine (0.5 - 1.0 mg/dL) 1.9 H Estimated GFR (>60 ml/min) 25 L BUN/Creatinine Ratio (7 - 25 %) 28.4 H Coagulation PT (9.4 - 12.5 SEC) 14.4 H INR (0.90 - 1.19) 1.32 H APTT (25 - 37 SEC) 33 Cancelled Hematology CBC w Diff NO MAN DIFF REQ WBC (4.8 - 10.8 /CUMM) 4.8 RBC (4.20 - 5.40 /CUMM) 2.92 L Hgb (12.0 - 16.0 G/DL) 9.7 L Hct (37 - 47 %) 29.3 L MCV (81.0 - 99.0 FL) 100.4 H MCH (27.0 - 31.0 PG) 33.2 H MCHC (33.0 - 37.0 G/DL) 33.0 RDW (11.5 - 14.5 %) 21.2 H Plt Count (130 - 400 /CUMM) 80 L MPV (7.4 - 10.4 FL) 10.5 H Gran % (42.2 - 75.2 %) 54.6 Lymphocytes % (20.5 - 51.1 %) 27.9 Monocytes % (1.7 - 9.3 %) 14.3 H Eosinophils % (0 - 5 %) 2.8 Basophils % (0.0 - 2.0 %) 0.4 Absolute Granulocytes (1.4 - 6.5 /CUMM) 2.6 Absolute Lymphocytes (1.2 - 3.4 /CUMM) 1.3 Absolute Monocytes (0.10 - 0.60 /CUMM) 0.7 H Absolute Eosinophils (0.0 - 0.7 /CUMM) 0.1 Absolute Basophils (0.0 - 0.2 /CUMM) 0 09/04 09/04 04/06 0725 0624 1806 Chemistry Sodium (137 - 145 mmol/L) 143 140 Potassium (3.5 - 5.1 mmol/L) 4.3 4.8 Chloride (98 - 107 mmol/L) 106 106 Carbon Dioxide (22 - 30 mmol/L) 26 20 L Anion Gap (5 - 16) 11 14 BUN (7 - 17 mg/dL) 51 H 53 H Creatinine (0.5 - 1.0 mg/dL) 2.1 H 2.0 H Estimated GFR (>60 ml/min) 23 L 24 L BUN/Creatinine Ratio (7 - 25 %) 24.3 26.5 H Glucose (65 - 99 mg/dL) 135 H Hemoglobin A1c (4.2 - 5.8 %) Pending Calcium (8.4 - 10.2 mg/dL) 10.9 H Total Bilirubin (0.2 - 1.3 mg/dL) 1.1 1.5 H Direct Bilirubin (< 0.4 mg/dL) 0.7 H 0.9 H AST (14 - 36 U/L) 29 43 H ALT (9 - 52 U/L) 21 19 Alkaline Phosphatase (<127 U/L) 109 161 H Troponin I (< 0.11 ng/ml) 0.02 Total Protein (6.3 - 8.2 g/dL) 6.0 L 7.8 Albumin (3.5 - 5.0 g/dL) 2.9 L 3.9 Globulin (1.9 - 4.2 gm/dL) 3.9 Albumin/Globulin Ratio (1.1 - 2.2 %) 1.0 L TSH (0.270 - 4.200 uIU/mL) 1.290 Free T4 (0.85 - 1.93 ng/dL) 3.02 H Hematology CBC w Diff NO MAN DIFF REQ WBC (4.8 - 10.8 /CUMM) 4.0 L 7.8 RBC (4.20 - 5.40 /CUMM) 2.93 L 3.81 L Hgb (12.0 - 16.0 G/DL) 9.7 L 12.5 Hct (37 - 47 %) 29.2 L 38.3 MCV (81.0 - 99.0 FL) 99.7 H 100.7 H MCH (27.0 - 31.0 PG) 33.2 H 32.9 H MCHC (33.0 - 37.0 G/DL) 33.3 32.7 L RDW (11.5 - 14.5 %) 20.9 H 21.7 H Plt Count (130 - 400 /CUMM) 83 L 156 MPV (7.4 - 10.4 FL) 10.3 10.6 H Gran % (42.2 - 75.2 %) 53.0 67.0 Lymphocytes % (20.5 - 51.1 %) 29.9 17.0 L Monocytes % (1.7 - 9.3 %) 14.8 H 13.5 H Eosinophils % (0 - 5 %) 1.9 2.1 Basophils % (0.0 - 2.0 %) 0.4 0.4 Absolute Granulocytes (1.4 - 6.5 /CUMM) 2.1 5.2 Absolute Lymphocytes (1.2 - 3.4 /CUMM) 1.2 1.3 Absolute Monocytes (0.10 - 0.60 /CUMM) 0.6 1.1 H Absolute Eosinophils (0.0 - 0.7 /CUMM) 0.1 0.2 Absolute Basophils (0.0 - 0.2 /CUMM) 0 0 Other Body Source Fluid Total Protein Cancelled 09/03 1637 Urines Urine Color Cancelled Urine Clarity Cancelled Urine pH Cancelled Ur Specific [place] Cancelled Urine Protein Cancelled Urine Ketones Cancelled Urine Nitrite Cancelled Urine Bilirubin Cancelled Urine Urobilinogen Cancelled Ur Leukocyte Esterase Cancelled Ur Microscopic Cancelled Urine Hemoglobin Cancelled Urine Glucose Cancelled Imaging/Other Studies: CT ABDOMEN AND PELVIS WITHOUT CONTRAST CLINICAL INFORMATION: Shortness of breath, distention. Rule out ascites, abdominal process COMPARISON: Abdominal ultrasound 07/13/2017 TECHNIQUE: Multidetector volumetric imaging was performed from the lung bases through the pubic symphysis. Sagittal and coronal reformatted images were obtained on the technologist workstation. Total exam dose-length product 946 mGy-cm FINDINGS: The lack of intravenous contrast limits evaluation of the solid visceral organs including the liver, spleen, pancreas, and kidneys. LUNG BASES: There is new lingular opacity, which could represent atelectasis or pneumonia. LIVER, GALLBLADDER, AND BILIARY TREE: The liver is shrunken and nodular consistent with cirrhosis. Lack of IV contrast limits evaluation. Status post cholecystectomy. No biliary ductal dilatation. A large volume of ascites is present throughout the abdomen and pelvis. PANCREAS: Limited non-contrast evaluation is normal. No kateryna-pancreatic fluid. SPLEEN: Spleen is enlarged. No focal splenic lesion seen. ADRENAL GLANDS: Normal; no adrenal mass. KIDNEYS AND URETERS: The kidneys are atrophic. No hydronephrosis, calculi, or solid mass. GASTROINTESTINAL TRACT: Likely small hiatal hernia. Stomach collapsed. The small bowel loops are centralized by the large volume of ascites but there is no small bowel dilation to suggest obstruction. The extent of ascites limits evaluation for colonic wall thickening or subtle pericolonic inflammatory changes. There is severe sigmoid diverticulosis with scattered diverticula elsewhere. No evidence of acute colitis or diverticulitis. ABDOMINAL WALL: There is ascites within an umbilical hernia. There is anasarca, particularly involving the pelvis. LYMPH NODES: No pathologically enlarged lymph nodes in the abdomen or pelvis. VASCULAR: Moderate calcified atherosclerotic change of normal caliber aorta. BLADDER: Unremarkable. PELVIC VISCERA: Uterus not seen, presumably surgically absent. No adnexal mass. OSSEOUS STRUCTURES: There are degenerative changes of the spine. No acute or suspicious osseous abnormality. IMPRESSION: Large volume of ascites in the background of cirrhosis and likely portal hypertension. Anasarca. Findings suggest volume overload. Assessment/Plan Assessment/Recommendations: Decompensated cirrhosis with ascites, and diuretic management limited by chronic kidney disease. 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 She has dyspnea on exertion (including talking), no evident orthopnea or platypnea. There is no overt encephalopathy. Her liver synthetic function is good. Recommendations * 2 g sodium diet, no need for fluid restriction, no need at this time for IV crystalloid or colloid. * Agree with large volume paracentesis. Send fluid for cell count, culture. * If more than 5 L of ascites removed, administer intravenous cell poor albumin (6-8 g/L removed) * After paracentesis, if still dyspneic, consider complete pulmonary evaluation to rule out other causes of dyspnea, both related to cirrhosis (hepatopulmonary, kika-pulmonary hypertension, etc.) and not. * Will need to consider stopping beta elvira, although the patient is not hypotensive, and this may not truly be refractory ascites (but more difficulty managing diuretic therapy given chronic kidney disease). * Assess leg weakness: Physical therapy * Will review outpatient records and make further recommendations as necessary. Consult Acknowledgment - Thank you for your consult request.
[2017-09-05 22:39] VITALS: BP 120/72
[2017-09-06 06:35] VITALS: BP 134/74
--- NOTE | 2017-09-06 07:08 | PN- Housestaff ---
See Addendum Subjective Follow-up For: Gait instability Ascites secondary to Soria cirrhosis Subjective: Patient seen and examined earlier today. She was resting comfortably. Continues to report some shortness of breath and not present at rest. However increases markedly with little movement patient is scheduled to go for paracentesis today we will advance her diet after she comes back If she requires a large-volume paracentesis she will need administration of albumin Review of Systems Constitutional: Reports: see HPI. Objective Last 24 Hrs of Vital Signs/I&O Vital Signs Date Time Temp Pulse Resp B/P B/P Pulse O2 O2 Flow FiO2 Mean Ox Delivery Rate 09/06 634 98.3 68 20 134/74 92 Room Air 09/05 2239 98.1 70 20 120/72 95 Room Air 09/05 1600 Room Air 09/05 1508 97.8 73 20 120/78 91 Intake & Output 09/06 1600 09/06 0800 09/06 0000 Intake Total 0 1000 Output Total Balance 0 1000 Intake, Oral 0 1000 Patient 226 lb Weight Physical Exam General Appearance: Alert, Oriented X3, Cooperative Cardiovascular: Normal S1, Normal S2 Lungs: Normal Air Movement Abdomen: distented Neurological: Normal Speech Current Medications: Current Medications Sig/Jennifer Start time Last Medication Dose Route Stop Time Status Admin Acetaminophen 650 MG ONCE ONE 09/05 2014 DC 09/05 PO 09/05 Albumin Human 50 GM ONCE ONE 09/06 1100 AC IV 09/06 1101 Allopurinol 100 MG DAILY 09/04 1000 AC 09/05 PO 1016 Amlodipine Besylate 10 MG DAILY 09/04 1000 AC 09/05 PO 1017 Carbidopa/Levodopa 1 TAB TID 09/04 1000 AC 09/05 PO 202 Cyanocobalamin 1,000 MCG DAILY 09/04 1000 AC 09/05 PO 1016 Fentanyl Citrate 12 MCG Q72H 09/03 1945 AC 09/03 TOP 2006 Furosemide 40 MG 09/06 1000 AC PO Heparin Sodium 5,000 UNIT Q8 09/04 0600 AC 09/05 (Porcine) SC 202 Insulin Aspart 0 TIDAC 09/04 0800 AC 09/05 SC 1616 Insulin Detemir 6 UNITS DAILY 09/07 1000 UNVr SC Insulin Detemir 10 UNITS DAILY 09/05 1000 DC 09/05 SC 1017 Levothyroxine Sodium 0.175 MG DAILY 09/04 1000 AC 09/05 PO 1016 Lidocaine 1 PAT DAILY 09/04 0230 AC 09/05 EXT 1017 Lovastatin 20 MG 1700 09/04 1700 AC 09/05 PO 1616 Magnesium Oxide 400 MG DAILY 09/04 1000 AC 09/05 PO 1017 Mirabegron 25 MG DAILY 09/04 1000 AC 09/05 PO 1016 Nadolol 20 MG DAILY 09/04 1000 AC 09/05 PO 1016 Nystatin 1 SANDEEP BID 09/05 2210 AC TOP Omeprazole 40 MG DAILY AC 09/04 0700 AC 09/06 PO 0603 Spironolactone 25 MG DAILY 09/04 1000 AC 09/05 PO 1016 Last 24 Hrs of Lab/Unruly Results Last 24 Hrs of Labs/Mics: Laboratory Tests 09/06/17 0920: Fluid WBC Pending, Fld Total RBCs Counted Pending 09/06/17 0920: Fluid Total Protein 2.3 09/06/17 0815: Anion Gap 9, Estimated GFR 24 L, BUN/Creatinine Ratio 26.0 H, CBC w Diff NO MAN DIFF REQ, RBC 2.96 L, MCV 100.3 H, MCH 32.8 H, MCHC 32.7 L, RDW 20.8 H, MPV 9.9, Gran % 51.9, Lymphocytes % 30.4, Monocytes % 14.7 H, Eosinophils % 2.6 , Basophils % 0.4, Absolute Granulocytes 1.8, Absolute Lymphocytes 1.0 L, Absolute Monocytes 0.5, Absolute Eosinophils 0.1, Absolute Basophils 0 Microbiology 09/07 919 BODY FLUID: Body Fluid Culture - RECD 09/07 919 BODY FLUID: Gram Stain - RECD Assessment/Plan Assessment: 81-year-old female with CAD, HTN, HLD, DM, hypothyroidism, chronic back pain, SORIA/cirrhosis, and CKD Stage IIIB/IV presented to the ED with complaint of worsening lower extremity edema, increased abdominal distention and shortness of breath worsening over the past several weeks but has been going on really since March of last year. She is been seen and evaluated at this hospital several times for similar symptoms and has had abdominal fluid drained. 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, Shortness of breath, mechanical compression secondary to ascites HX of SORIA cirrhosis -Therapeutic paracentesis scheduled for today patient currently down to interventional radiology -Will advance diet -Continuing paracentesis today. Removed 6.1L -We are going to administer albumin 6 to 8 g/L -Follow-up cell count and culture of ascitic fluid -Continue Spironolactone 25 mg daily, Lasix 40 mg Wednesday, nadolol 20 mg -Gastroenterology on board -If she continues to be dyspneic after paracentesis we will consider a pulmonology evaluation for hepatopulmonary, kika-pulmonary hypertension, etc considering her history of cirrhosis #Gait instability -Fall precautions -PT evaluation, might require short-term rehabilitation -Bilateral lower extremity edema, ultrasound negative for DVT #Elevated TSH Her T4 is normal endocrinology has been sick consulted they did not recommend any changes in her medication as abnormal her abnormal TSH is most likely secondary to protein binding effects likely due to her liver disease -Continue on levothyroxine #Diabetes mellitus Patient has been having low blood sugars early in the morning, they're asymptomatic. -Her night dose of Levemir 10 units has been discontinued yesterday -3 times a day Accu-Cheks, sliding scale insulin as per endocrinology. -We are going to reduce morning Levemir to 6 units #History CKD -Continue to monitor creatinine currently stable #Leukopenia/thrombocytopenia/anemia -All cell lines are kind of depressed though stable likely dilutional effect -Continue to monitor -Expect improvement in tomorrow's lab as patient had a paracentesis done to about 6 L removed #Chronic medical conditions hypertension, gout, parkinsonism, hyperlipidemia, urinary incontinence, continue home medications amlodipine, allopurinol, Sinemet, statin, mirabegron, omeprazole #Diabetic diet/DVT prophylaxis subcutaneous heparin/full code Problem List: 1. Cirrhosis Pain Ratin Pain Location: n/a Pain Goal: Pain 4 or less Pain Plan: prn Tomorrow's Labs & Rationales: cbc bep
--- NOTE | 2017-09-06 08:08 | PN- Diabetes ---
Assessment/Plan Diabetes Assessment: The patient is scheduled for a paracentesis this morning. Her fingerstick blood sugar this morning is 106. She is on Levemir 10 units each a.m. He feels that the fluid in her abdomen has already gone down somewhat just with bedrest and her present medication. Plan: Suggest reduce Levemir to 6 units each morning. Continue to monitor her sugars 4 times a day. Continue sliding scale NovoLog before she eats. Objective Last 24 Hrs of Vital Signs/I&O Vital Signs Date Time Temp Pulse Resp B/P B/P Pulse O2 O2 Flow FiO2 Mean Ox Delivery Rate 09/06 0535 98.3 68 20 134/74 92 Room Air 09/05 2239 98.1 70 20 120/72 95 Room Air 09/05 1600 Room Air 09/05 1508 97.8 73 20 120/78 91 09/05 1017 60 120/82 08 1016 60 120/82 Intake & Output 09/06 1600 09/06 0800 09/06 0000 Intake Total 1000 Output Total Balance 1000 Intake, Oral 1000 Patient 226 lb Weight Vital Signs Date Time Temp Pulse Resp B/P B/P Pulse O2 O2 Flow FiO2 Mean Ox Delivery Rate 09/06 0535 98.3 68 20 134/74 92 Room Air 09/05 2239 98.1 70 20 120/72 95 Room Air 09/05 1600 Room Air 09/05 1508 97.8 73 20 120/78 91 /08 1017 60 120/82 /08 1016 60 120/82 Intake & Output 09/06 1600 09/06 0800 09/06 0000 Intake Total 1000 Output Total Balance 1000 Intake, Oral 1000 Patient 226 lb Weight Physical Exam General Appearance: alert, awake, comfortable Head: normal appearance Neck: normal inspection Respiratory: normal breath sounds Cardiovascular: regular rate/rhythm Abdomen: non-tender, distention Current Medications: Current Medications Sig/Jennifer Start time Last Medication Dose Route Stop Time Status Admin Acetaminophen 650 MG ONCE ONE 09/05 2014 DC 09/05 PO 09/05 Allopurinol 100 MG DAILY 09/04 1000 AC 09/05 PO 1015 Amlodipine Besylate 10 MG DAILY 09/04 1000 AC 09/05 PO 101 Carbidopa/Levodopa 1 TAB TID 09/04 1000 AC 09/05 PO 2021 Cyanocobalamin 1,000 MCG DAILY 09/04 1000 AC 09/05 PO 1016 Fentanyl Citrate 12 MCG Q72H 09/03 1945 AC 09/03 TOP 2006 Furosemide 40 MG 09/06 1000 AC PO Heparin Sodium 5,000 UNIT Q8 09/04 06 AC 09/05 (Porcine) SC 202 Insulin Aspart 0 TIDAC 09/04 0800 AC 09/05 SC 1616 Insulin Detemir 8 UNITS AT BEDTIME 09/05 2200 CAN SC Insulin Detemir 10 UNITS DAILY 09/05 1000 AC 09/05 SC 1017 Insulin Detemir 10 UNITS BID 09/04 0100 DC 09/04 SC 2117 Levothyroxine Sodium 0.175 MG DAILY 09/04 1000 AC 09/05 PO 1016 Lidocaine 1 PAT DAILY 09/04 0230 AC 09/05 EXT 1017 Lovastatin 20 MG 1700 09/04 1700 AC 09/05 PO 1616 Magnesium Oxide 400 MG DAILY 09/04 1000 AC 09/05 PO 1017 Mirabegron 25 MG DAILY 09/04 1000 AC 09/05 PO 1016 Nadolol 20 MG DAILY 09/04 1000 AC 09/05 PO 1016 Nystatin 1 SANDEEP BID 09/05 2210 AC TOP Omeprazole 40 MG DAILY AC 09/04 0700 AC 09/06 PO 0603 Spironolactone 25 MG DAILY 09/04 1000 AC 09/05 PO 1016 Findings Pertinent Lab/Unruly Results: Laboratory Tests 09/05 09/04 09/04 0715 1140 1127 Chemistry Sodium (137 - 145 mmol/L) 139 Potassium (3.5 - 5.1 mmol/L) 4.8 Chloride (98 - 107 mmol/L) 108 H Carbon Dioxide (22 - 30 mmol/L) 22 Anion Gap (5 - 16) 9 BUN (7 - 17 mg/dL) 54 H Creatinine (0.5 - 1.0 mg/dL) 1.9 H Estimated GFR (>60 ml/min) 25 L BUN/Creatinine Ratio (7 - 25 %) 28.4 H Coagulation PT (9.4 - 12.5 SEC) 14.4 H INR (0.90 - 1.19) 1.32 H APTT (25 - 37 SEC) 33 Cancelled Hematology CBC w Diff NO MAN DIFF REQ WBC (4.8 - 10.8 /CUMM) 4.8 RBC (4.20 - 5.40 /CUMM) 2.92 L Hgb (12.0 - 16.0 G/DL) 9.7 L Hct (37 - 47 %) 29.3 L MCV (81.0 - 99.0 FL) 100.4 H MCH (27.0 - 31.0 PG) 33.2 H MCHC (33.0 - 37.0 G/DL) 33.0 RDW (11.5 - 14.5 %) 21.2 H Plt Count (130 - 400 /CUMM) 80 L MPV (7.4 - 10.4 FL) 10.5 H Gran % (42.2 - 75.2 %) 54.6 Lymphocytes % (20.5 - 51.1 %) 27.9 Monocytes % (1.7 - 9.3 %) 14.3 H Eosinophils % (0 - 5 %) 2.8 Basophils % (0.0 - 2.0 %) 0.4 Absolute Granulocytes (1.4 - 6.5 /CUMM) 2.6 Absolute Lymphocytes (1.2 - 3.4 /CUMM) 1.3 Absolute Monocytes (0.10 - 0.60 /CUMM) 0.7 H Absolute Eosinophils (0.0 - 0.7 /CUMM) 0.1 Absolute Basophils (0.0 - 0.2 /CUMM) 0 04/07 1000 Other Body Source Fluid WBC Cancelled Fld Total RBCs Counted Cancelled
[2017-09-06 08:52] LABS: ABSOLUTE BASOPHIL COUNT 0 /CUMM (0.0-0.2); ABSOLUTE EOSINOPHIL COUNT 0.1 /CUMM (0.0-0.7); ABSOLUTE GRANULOCYTE CT 1.8 /CUMM (1.4-6.5); ABSOLUTE MONOCYTE COUNT 0.5 /CUMM (0.10-0.60); BASOPHIL % 0.4 % (0.0-2.0); EOSINOPHIL % 2.6 % (0-5); GRANULOCYTE % 51.9 % (42.2-75.2); HEMATOCRIT 29.7 % (37-47); MEAN CORPUSCULAR HGB 32.8 PG (27.0-31.0); MEAN CORPUSCULAR HGB CONC 32.7 G/DL (33.0-37.0); MEAN CORPUSCULAR VOLUME 100.3 FL (81.0-99.0); MEAN PLATELET VOLUME 9.9 FL (7.4-10.4); RBC DISTRIBUTION WIDTH 20.8 % (11.5-14.5); RED BLOOD CELL CT 2.96 /CUMM (4.20-5.40); WHITE BLOOD CELL COUNT 3.4 /CUMM (4.8-10.8)
[2017-09-06 10:08] LABS: PLATELET COUNT 86 /CUMM (130-400)
[2017-09-06 15:16] VITALS: BP 120/70
--- NOTE | 2017-09-06 16:09 | ULTRASOUND REPORT ---
EXAMINATION: PARACENTESIS CLINICAL INFORMATION: Ascites COMPARISON: Several prior paracenteses, the most recent 08/12/2017 TECHNIQUE: Indirect ultrasound guidance using a 6 [place]er [id number] closed needle/catheter system FINDINGS: Informed consent was obtained from the patient prior to the procedure. During this process, the procedure alternatives were explained, along with the intended outcome and benefits. The risks of the procedure, as well as the risk of not doing the procedure, was discussed. The patient was given the opportunity to ask questions regarding the procedure and appeared competent to make medical decisions. A signed consent form which documents this discussion was placed in the medical record. Ultrasound evaluation of the abdomen for ascites was performed. Moderate amount of ascites is noted in the left lower quadrant. The site was marked. A timeout procedure was performed. The area was prepped and draped in usual sterile fashion. Using standard interventional and sterile techniques, lidocaine was used to anesthetize the region. A 6 [place]er [id number] closed needle/catheter system was introduced into the left lower quadrant using standard safety needle technique. Approximately 6.1 L of light yellow fluid was removed into the Vacutainer bottles. The catheter was then removed. Good hemostasis was achieved. The patient demonstrated immediate symptomatic relief. The patient tolerated the procedure well. Dermabond was placed. The patient was discharged from the department in stable condition. COMPLICATIONS: None. IMPRESSION: Successful ultrasound-guided paracentesis yielding 6.1 L of fluid.
[2017-09-06] MEDS ORDERED: LEVEMIR100 UNIT/1 SC (16:50)
[2017-09-06] MEDS ORDERED: NOVOLOG100 UNIT/2 SC (16:50)
--- NOTE | 2017-09-06 16:52 | Patient Discharge Instructions ---
Discharge Instructions General Discharge Information You were seen/treated for: fall ascites You had these procedures: paracentesis with drainage of 6L of fluid Special Instructions: -please follow up with PCP after discharge in 2 weeks -please follow up with ep technologist after discharge within 1 week, your insulin regemin has been changed -please follow up with GI services after discharge in 3 weeks Diet Recommended Diet: Diabetic Activity Activity Self Limited: Yes Acute Coronary Syndrome Inclusion Criteria At DC or during hospital stay patient has or had the following: ACS DIAGNOSIS No Discharge Core Measures Meds if any: Prescribed or Continued at Discharge Meds if any: NOT Prescribed or Continued at Discharge Congestive Heart Failure Inclusion Criteria At DC or during hospital stay patient has or had the following: CHF DIAGNOSIS No Discharge Core Measures Meds if any: Prescribed or Continued at Discharge Meds if any: NOT Prescribed or Continued at Discharge Cerebrovascular accident Inclusion Criteria At DC or during hospital stay patient has or had the following: CVA/TIA Diagnosis No Discharge Core Measures Meds if any: Prescribed or Continued at Discharge Meds if any: NOT Prescribed or Continued at Discharge Venous thromboembolism Inclusion Criteria VTE Diagnosis No VTE Type NONE VTE Confirmed by (Test) NONE Discharge Core Measures - Per Current guidelines, there needs to be overlap - treatment for the first 5 days of Warfarin therapy. - If discharged on Warfarin prior to 5 days of - overlap therapy, the patient will need to be - assessed for post discharge needs including - *Post discharge parental anticoagulation - *Warfarin and/or parental anticoagulation education - *Follow up date to check INR post discharge At least 5 days overlap therapy as Inpatient No Meds if any: Prescribed or Continued at Discharge Note: Overlap Therapy is Warfarin and Anticoagulant Meds if any: NOT Prescribed or Continued at Discharge
[2017-09-06 22:17] VITALS: BP 120/68
[2017-09-07 05:28] VITALS: BP 116/72
--- NOTE | 2017-09-07 07:11 | PN- Housestaff ---
Viktor PEREZ,[place] 09/07/17 0711: Subjective Follow-up For: Ascites secondary to [place] Subjective: Seen and examined. Resting comfortably. Easily arousable. He reports improvement in symptoms. Stable to be discharged with a follow-up recommendations with GI and PCP Review of Systems Constitutional: Reports: see HPI. Objective Last 24 Hrs of Vital Signs/I&O Vital Signs Date Time Temp Pulse Resp B/P B/P Pulse O2 O2 Flow FiO2 Mean Ox Delivery Rate 09/07 0528 98.0 70 20 116/72 92 09/06 2217 98.3 64 20 120/68 92 09/06 1516 98.0 64 20 120/70 95 09/06 1207 Room Air 09/06 1111 64 130/70 09/06 1110 64 130/70 Intake & Output 09/07 1600 09/07 0800 09/07 0000 Intake Total 480 800 Output Total Balance 480 800 Intake, Oral 480 800 Physical Exam General Appearance: Alert, Oriented X3, Cooperative Lungs: Clear to Auscultation Abdomen: distension improved Current Medications: Current Medications Sig/Jennifer Start time Last Medication Dose Route Stop Time Status Admin Albumin Human 50 GM ONCE ONE 09/06 1100 DC 09/06 IV 09/06 1101 1121 Allopurinol 100 MG DAILY 09/04 1000 AC 09/06 PO 1110 Amlodipine Besylate 10 MG DAILY 09/04 1000 AC 09/06 PO 1110 Carbidopa/Levodopa 1 TAB TID 09/04 1000 AC 09/06 PO 2027 Cyanocobalamin 1,000 MCG DAILY 09/04 1000 AC 09/06 PO 1110 Fentanyl Citrate 12 MCG Q72H 09/03 1945 AC 09/03 TOP 2006 Furosemide 40 MG 09/06 1000 AC 09/06 PO 1111 Heparin Sodium 5,000 UNIT Q8 09/04 0600 AC 09/07 (Porcine) SC 0621 Insulin Aspart 0 TIDAC 09/04 0800 AC 09/06 SC 1645 Insulin Detemir 6 UNITS DAILY 09/07 1000 AC SC Insulin Detemir 10 UNITS DAILY 09/05 1000 DC 09/05 SC 1017 Levothyroxine Sodium 0.175 MG DAILY 09/04 1000 AC 09/06 PO 1110 Lidocaine 1 ML .STK-MED ONE 09/06 1122 DC ID 09/06 1123 Lidocaine 1 PAT DAILY 09/04 0230 AC 09/06 EXT 1111 Lovastatin 20 MG 1700 09/04 1700 AC 09/06 PO 1544 Magnesium Oxide 400 MG DAILY 09/04 1000 AC 09/06 PO 1110 Mirabegron 25 MG DAILY 09/04 1000 AC 09/06 PO 1111 Nadolol 20 MG DAILY 09/04 1000 AC 09/06 PO 1111 Nystatin 1 SANDEEP BID 09/05 2210 AC 09/06 TOP 2028 Omeprazole 40 MG DAILY AC 09/04 0700 AC 09/07 PO 0622 Spironolactone 25 MG DAILY 09/04 1000 AC 09/06 PO 1110 Last 24 Hrs of Lab/Unruly Results Last 24 Hrs of Labs/Mics: Laboratory Tests 09/07/17 0705: CBC w Diff NO MAN DIFF REQ, RBC 2.86 L, MCV 100.5 H, MCH 33.5 H, MCHC 33.3, RDW 20.7 H, MPV 10.7 H, Gran % 53.0, Lymphocytes % 32.5, Monocytes % 12.3 H, Eosinophils % 1.8, Basophils % 0.4, Absolute Granulocytes 1.5, Absolute Lymphocytes 0.9 L, Absolute Monocytes 0.4, Absolute Eosinophils 0, Absolute Basophils 0 Assessment/Plan Assessment: 81-year-old female with CAD, HTN, HLD, DM, hypothyroidism, chronic back pain, SORIA/cirrhosis, and CKD Stage IIIB/IV presented to the ED with complaint of worsening lower extremity edema, increased abdominal distention and shortness of breath worsening over the past several weeks but has been going on really since March of last year. She is been seen and evaluated at this hospital several times for similar symptoms and has had abdominal fluid drained. 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, Shortness of breath, mechanical compression secondary to ascites HX of SORIA cirrhosis Status post paracentesis with removal of 6.1 L -cell count negative for SBP and culture of ascitic fluid no growth so far -Continue Spironolactone 25 mg daily, Lasix 40 mg Wednesday, nadolol 20 mg -Gastroenterology on board #Gait instability -Fall precautions -PT evaluation, short-term rehabilitation -Bilateral lower extremity edema, ultrasound negative for DVT #Elevated TSH Her T4 is normal endocrinology has been sick consulted they did not recommend any changes in her medication as abnormal her abnormal TSH is most likely secondary to protein binding effects likely due to her liver disease -Continue on current dose levothyroxine #Diabetes mellitus Patient has been having low blood sugars early in the morning, they're asymptomatic. -Her night dose of Levemir 10 units has been discontinued and morning Levemir has been reduced to 6 units -3 times a day Accu-Cheks, sliding scale insulin as per endocrinology. -Blood sugar starting an acceptable range today #History CKD -Continue to monitor creatinine currently stable #Leukopenia/thrombocytopenia/anemia -All cell lines are kind of depressed though stable likely dilutional effect -Continue to monitor #Chronic medical conditions hypertension, gout, parkinsonism, hyperlipidemia, urinary incontinence, continue home medications amlodipine, allopurinol, Sinemet, statin, mirabegron, omeprazole #Diabetic diet/DVT prophylaxis subcutaneous heparin/full code Problem List: 1. Ascites Pain Ratin Pain Location: n/a Pain Goal: Pain 4 or less Pain Plan: prn Tomorrow's Labs & Rationales: none Mayelin PEREZ,Francisca 09/07/17 1423: Attending MD Review Statement Attending Statement Attending MD Statement: examined this patient, discuss w/resident/PA/OFFICE ADMINISTRATION INSTRUCTOR, agreed w/resident/PA/OFFICE ADMINISTRATION INSTRUCTOR, discussed with family, reviewed EMR data (avail), discussed with nursing, discussed with case mgmt, amended to note Attending Assessment/Plan: Patient seen and examined. Resting comfortably not in any acute distress. No issues overnight reported by nursing staff. She is alert and oriented 3. She reports feeling better. Abdomen is still distended but better following paracentesis yesterday. Due to her deconditioned state physical therapy is recommending discharge to half-way facility. She may be discharged once a bed becomes available.
[2017-09-07 08:25] LABS: ABSOLUTE BASOPHIL COUNT 0 /CUMM (0.0-0.2); ABSOLUTE EOSINOPHIL COUNT 0 /CUMM (0.0-0.7); ABSOLUTE GRANULOCYTE CT 1.5 /CUMM (1.4-6.5); ABSOLUTE LYMPH COUNT 0.9 /CUMM (1.2-3.4); ABSOLUTE MONOCYTE COUNT 0.4 /CUMM (0.10-0.60); BASOPHIL % 0.4 % (0.0-2.0); EOSINOPHIL % 1.8 % (0-5); HEMATOCRIT 28.8 % (37-47); MEAN CORPUSCULAR HGB 33.5 PG (27.0-31.0); MEAN CORPUSCULAR HGB CONC 33.3 G/DL (33.0-37.0); MEAN CORPUSCULAR VOLUME 100.5 FL (81.0-99.0); MEAN PLATELET VOLUME 10.7 FL (7.4-10.4); PLATELET COUNT 75 /CUMM (130-400); RBC DISTRIBUTION WIDTH 20.7 % (11.5-14.5); RED BLOOD CELL CT 2.86 /CUMM (4.20-5.40); WHITE BLOOD CELL COUNT 2.9 /CUMM (4.8-10.8)
--- NOTE | 2017-09-07 08:56 | Discharge Summary ---
Visit Information Visit Dates Admission Date: 09/03/17 Discharge Date: 09/07/17 Hospital Course Course Attending Physician: Francisca Dick MD Primary Care Physician: Anoop Nava MD Hospital Course: 81-year-old female with CAD, HTN, HLD, DM, hypothyroidism, chronic back pain, JACKSON/cirrhosis, and CKD Stage IIIB/IV presented to the ED with complaint of worsening lower extremity edema, increased abdominal distention and shortness of breath worsening over the past several weeks.Patient also fell down at home, appears to be mechanical fall but required 2 person assistance to get up. On ambulation evaluation in ER patient required two-person assistance and was unsteady gait. Problem list Recurrent ascites secondary to decompensated cirrhosis Shortness of breath, mechanical compression secondary to ascites Gait instability Cirrhosis secondary to [place] Hypertension Hyperlipidemia GERD Diabetes Hospital course Patient's symptoms were secondary to decompensated cirrhosis leading to recurrent ascites. She was on small dose of diuretic at home as it was limited by her kidney disease. 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 She was evaluated on the [facility] floor by java websphere developer and maintained on a 2 g sodium restricted diet. She had a large volume paracentesis with 6.1 L fluid removal. Albumin was administered concomitantly. Patient had significant relief in her symptoms post the procedure. SBP was ruled out. She was continued on Spironolactone 25 mg daily, Lasix 40 mg Wednesday , nadolol 20 mg. her blood sugars were running low and found to be low during hospitalization and Levemir was cut down to 6 units as per endocrinology recommendations. Physical therapy worked with her to regain her strength. Patient is being discharged to short-term rehabilitation with outpatient follow- up with GI and PCP in 3 weeks. 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 Additional Diagnosis: Shortness of breath, mechanical compression secondary to ascites Gait instability Cirrhosis secondary to [place] Hypertension Hyperlipidemia GERD Diabetes Discharge Disposition: SNF Discharge Instructions General Discharge Information Code Status: Full Code Patient's Diet: Consistent carbohydrate diet 2 g sodium restriction Patient's Activity: As tolerated Follow-Up Instructions/Appts: -please follow up with PCP after discharge in 2 weeks -please follow up with python engineer after discharge within 1 week, your insulin regemin has been changed -please follow up with GI services after discharge in 3 weeks Medications at Discharge Discharge Medications: Stop taking the following medications: Insulin Aspart, Recombinant (Novolog Flexpen) 100 UNIT/ML INSULN.PEN SUB-Q BEFORE MEALS AND AT BEDTIME Qty = 3 Insulin Detemir (Levemir) 100 UNIT/ML VIAL Inject into fatty tissue TWICE DAILY Continue taking these medications: Amlodipine Besylate (Amlodipine Besylate) 10 MG TABLET 1 Tablet ORAL DAILY Qty = 90 Comments: Last Taken: 09/07/17 Time: 10:00 AM Nadolol (Nadolol) 20 MG TABLET 1 Tablet ORAL DAILY Comments: Last Taken: 09/07/17 Time: 10:00 am Lovastatin (Lovastatin) 20 MG TABLET 1 Tablet ORAL DAILY Comments: LIPITOR GIVEN WHILE IN HOSPITAL Last Taken: 09/07/17 Time: 1600 Allopurinol (Zyloprim) 100 MG TABLET 1 Tablet ORAL DAILY Comments: Last Taken: 09/07/17 Time: 10:00 AM Omeprazole (Omeprazole) 40 MG CAPSULE.DR 1 Capsule ORAL DAILY Comments: Last Taken: 09/07/17 Time: 6:00 AM Mirabegron (Myrbetriq) 50 MG TAB.ER.24H 1 Tablet ORAL DAILY Comments: Last Taken: 09/07/17 Time: 10:00 AM Cyanocobalamin (Vitamin B-12) 1,000 MCG TABLET 1 Tablet ORAL DAILY Comments: Last Taken: 09/07/17 Time: 10:00 am Magnesium Oxide (Magnesium) 500 MG CAPSULE 1 Capsule ORAL DAILY Comments: Last Taken: 09/07/17 Time: 10:00 AM Carbidopa/Levodopa (Sinemet 25-100 MG Tablet) 25 MG-100 MG TABLET 1 Tablet ORAL THREE TIMES DAILY Comments: Last Taken: 09/07/17 Time: 10:00 am Spironolactone (Spironolactone) 25 MG TABLET 1 Tablet ORAL DAILY Comments: Last Taken: 09/07/17 Time: 10:00 AM Duloxetine HCl (Cymbalta) 60 MG CAPSULE. 1 Capsule ORAL WEDNESDAY, WEDNESDAY, WEDNESDAY Comments: NOT TAKEN IN HOSPITAL Fentanyl (Duragesic) 12 MCG/HOUR PATCH.TD72 1 Patch On the skin Every 3 days Qty = 10 Instructions: . Comments: NOT TAKEN Levothyroxine Sodium (Synthroid) 175 MCG TABLET 1 Tablet ORAL DAILY Qty = 30 Instructions: . Comments: Last Taken: 09/07/17 Time: 10:00 AM Lidocaine (Lidoderm) 5 % ADH..PATCH 1 Patch On the skin DAILY Qty = 30 Instructions: .may wear up to 12 hours Comments: Last Taken: 09/07/17 Time: 10:00 AM Furosemide (Furosemide) 40 MG TABLET 1 Tablet ORAL WEDNESDAY, WEDNESDAY AND WEDNESDAY Qty = 45 Comments: Last Taken: 09/06/17 Time: 1100 AM Start taking the following new medications: Insulin Aspart (Novolog) 100 UNIT/ML VIAL 0 Units Inject into fatty tissue 3 TIMES DAILY BEFORE MEALS Qty = 1 No Refills Instructions: SUGARS SS 80-150 0 UNITS 151-200 2 UNITS 201-250 3 UNITS 251-300 4 UNITS 301-350 5 UNITS 351-400 6 UNITS >400 7 UNITS CALL UR DOCTOR Comments: Last Taken: 09/07/17 Time: 1200 Insulin Detemir (Levemir) 100 UNIT/ML VIAL 6 Unit Inject into fatty tissue DAILY Qty = 1 No Refills Comments: Last Taken: 09/07/17 Time: 10:00 AM Copies To: Raquel PEREZ,Toni Hanks; Jaron PEREZ,Casimiro Hanks Attending MD Review Statement Documenting Attending: Francisca Dick MD Other Findings: Discharged in stable condition.
--- NOTE | 2017-09-07 09:53 | PN- Diabetes ---
Assessment/Plan Diabetes Assessment: The patient feels less short of breath after a 6.1 L paracentesis. We have cut back on her Levemir to 6 units once a day and her blood sugars are in better control. Plan: The patient is discharged today I would discharge her on her present insulin regimen. She can follow-up with Dr. luciano in the office. Subjective Subjective: Less short of breath Review of Systems Constitutional: Denies: chills, fever. Cardiovascular: Denies: chest pain. Respiratory: Reports: cough. Denies: short of breath. Gastrointestinal: Denies: abdominal pain, nausea, vomiting. Objective Last 24 Hrs of Vital Signs/I&O Vital Signs Date Time Temp Pulse Resp B/P B/P Pulse O2 O2 Flow FiO2 Mean Ox Delivery Rate 09/07 0528 98.0 70 20 116/72 92 09/06 2216 98.3 64 20 120/68 92 09/06 1516 98.0 64 20 120/70 95 09/06 1207 Room Air 09/06 1111 64 130/70 09/06 1110 64 130/70 Intake & Output 09/07 1600 09/07 0000 Intake Total 480 800 Output Total Balance 480 800 Intake, Oral 480 800 Vital Signs Date Time Temp Pulse Resp B/P B/P Pulse O2 O2 Flow FiO2 Mean Ox Delivery Rate 09/07 0528 98.0 70 20 116/72 92 09/06 2216 98.3 64 20 120/68 92 09/06 1516 98.0 64 20 120/70 95 09/06 1207 Room Air 09/06 1111 64 130/70 09/06 1110 64 130/70 Intake & Output 09/07 1600 09/07 0000 Intake Total 480 800 Output Total Balance 480 800 Intake, Oral 480 800 Vital Signs Date Time Temp Pulse Resp B/P B/P Pulse O2 O2 Flow FiO2 Mean Ox Delivery Rate 09/07 0528 98.0 70 20 116/72 92 09/06 2216 98.3 64 20 120/68 92 09/06 1516 98.0 64 20 120/70 95 09/06 1207 Room Air 09/06 1111 64 130/70 09/06 1110 64 130/70 Intake & Output 09/07 1600 09/07 0809/07 0000 Intake Total 480 800 Output Total Balance 480 800 Intake, Oral 480 800 Physical Exam General Appearance: alert, awake, comfortable Neck: normal inspection Cardiovascular: regular rate/rhythm Abdomen: distention Current Medications: Current Medications Sig/Jennifer Start time Last Medication Dose Route Stop Time Status Admin Albumin Human 50 GM ONCE ONE 09/06 1100 DC 09/06 IV 09/06 1101 1121 Allopurinol 100 MG DAILY 09/04 1000 AC 09/06 PO 1110 Amlodipine Besylate 10 MG DAILY 09/04 1000 AC 09/06 PO 1110 Carbidopa/Levodopa 1 TAB TID 09/04 1000 AC 09/06 PO 202 Cyanocobalamin 1,000 MCG DAILY 09/04 1000 AC 09/06 PO 1110 Fentanyl Citrate 12 MCG Q72H 09/03 1945 AC 09/03 TOP 2005 Furosemide 40 MG 09/06 1000 AC 09/06 PO 1111 Heparin Sodium 5,000 UNIT Q8 09/04 0600 AC 09/07 (Porcine) SC 0621 Insulin Aspart 0 TIDAC 09/04 0800 AC 09/06 SC 1645 Insulin Detemir 6 UNITS DAILY 09/07 1000 AC SC Insulin Detemir 10 UNITS DAILY 09/05 1000 DC 09/05 SC 1017 Levothyroxine Sodium 0.175 MG DAILY 09/04 1000 AC 09/06 PO 1110 Lidocaine 1 ML .STK-MED ONE 09/06 1122 DC ID 09/06 1123 Lidocaine 1 PAT DAILY 09/04 0230 AC 09/06 EXT 1111 Lovastatin 20 MG 1700 09/04 1700 AC 09/06 PO 1544 Magnesium Oxide 400 MG DAILY 09/04 1000 AC 09/06 PO 1110 Mirabegron 25 MG DAILY 09/04 1000 AC 09/06 PO 1111 Nadolol 20 MG DAILY 09/04 1000 AC 09/06 PO 1111 Nystatin 1 SANDEEP BID 09/05 2210 AC 09/06 TOP 2027 Omeprazole 40 MG DAILY AC 09/04 0700 AC 09/07 PO 0622 Spironolactone 25 MG DAILY 09/04 1000 AC 09/06 PO 1110 Findings Pertinent Lab/Unruly Results: Laboratory Tests 09/07 704 Hematology CBC w Diff NO MAN DIFF REQ WBC (4.8 - 10.8 /CUMM) 2.9 L RBC (4.20 - 5.40 /CUMM) 2.86 L Hgb (12.0 - 16.0 G/DL) 9.6 L Hct (37 - 47 %) 28.8 L MCV (81.0 - 99.0 FL) 100.5 H MCH (27.0 - 31.0 PG) 33.5 H MCHC (33.0 - 37.0 G/DL) 33.3 RDW (11.5 - 14.5 %) 20.7 H Plt Count (130 - 400 /CUMM) 75 L MPV (7.4 - 10.4 FL) 10.7 H Gran % (42.2 - 75.2 %) 53.0 Lymphocytes % (20.5 - 51.1 %) 32.5 Monocytes % (1.7 - 9.3 %) 12.3 H Eosinophils % (0 - 5 %) 1.8 Basophils % (0.0 - 2.0 %) 0.4 Absolute Granulocytes (1.4 - 6.5 /CUMM) 1.5 Absolute Lymphocytes (1.2 - 3.4 /CUMM) 0.9 L Absolute Monocytes (0.10 - 0.60 /CUMM) 0.4 Absolute Eosinophils (0.0 - 0.7 /CUMM) 0 Absolute Basophils (0.0 - 0.2 /CUMM) 0
[2017-09-07 13:23] VITALS: BP 120/60
[2017-09-07 14:41] VITALS: BP 120/60
== END 2017-09-07 16:25 | DRG 441 ==
LOC: ERH 16:15 → 2NA 21:57 → ERHI 21:57 → ENRESERV 22:25 → ERHI 22:50 → 2NA 23:06 → ENPENDDIS 09-07 14:20 → ENTRNSPT 09-07 16:00 → EDTRNSPTSTS 09-07 16:20 → EDTRNSPT 09-07 16:20 → 2NA 09-07 16:25 → CMPTRNSPT 09-07 16:43
PROVIDERS: Emergency Medicine; Internal Medicine; Internal Medicine Infectious Disease; Student in an Organized Health Care Education/Training Program
PROC: 0W9G3ZZ Drainage of Peritoneal Cavity, Percutaneous Approach (ICD-10-PCS; principal; 2017-09-06)
DX: K75.81 Nonalcoholic steatohepatitis (NASH) (principal); K72.00 Acute and subacute hepatic failure without coma; E11.22 Type 2 diabetes mellitus with diabetic chronic kidney disease; E11.42 Type 2 diabetes mellitus with diabetic polyneuropathy; D69.6 Thrombocytopenia, unspecified; R18.8 Other ascites; N18.3 Chronic kidney disease, stage 3 (moderate); G20 Parkinson's disease; K76.6 Portal hypertension; K74.60 Unspecified cirrhosis of liver; W19.XXXA Unspecified fall, initial encounter; Y92.002 Bathroom of unspecified non-institutional (private) residence as the place of occurrence of the external cause; E03.9 Hypothyroidism, unspecified; Z79.4 Long term (current) use of insulin; I12.9 Hypertensive chronic kidney disease with stage 1 through stage 4 chronic kidney disease, or unspecified chronic kidney disease; K21.9 Gastro-esophageal reflux disease without esophagitis; R26.2 Difficulty in walking, not elsewhere classified; K31.89 Other diseases of stomach and duodenum; I86.8 Varicose veins of other specified sites; I25.10 Atherosclerotic heart disease of native coronary artery without angina pectoris; M54.9 Dorsalgia, unspecified; E78.5 Hyperlipidemia, unspecified; Z88.5 Allergy status to narcotic agent; I86.4 Gastric varices; G25.81 Restless legs syndrome; F32.9 Major depressive disorder, single episode, unspecified; M10.9 Gout, unspecified; R32 Unspecified urinary incontinence; Z90.49 Acquired absence of other specified parts of digestive tract; Z90.710 Acquired absence of both cervix and uterus; Z96.653 Presence of artificial knee joint, bilateral; M48.00 Spinal stenosis, site unspecified
CPT/HCPCS: 04007; 2NASP; 87075; 36415; 36592; 71046; 74176; 82436; 93005; 93010; 97110-GO; 97116-GO; 97161-GP; 97530-GO; J1644; J3490; P9047

== ENCOUNTER 2017-09-25 12:34 | Emergency (ER) | payer OTHER, MEDICARE ==
[~2017-09-25] VITALS: Ht 167.6 cm; Wt 102.5 kg
[~2017-09-25 12:34] MED LIST changes: +FERROUS SULFAT325 M3 PO; +FUROSEMIDE40 M1 PO; +LISINOPRIL-HCT1 EACH
--- NOTE | 2017-09-25 13:30 | ED GENERAL ADULT ---
History of Present Illness General Chief Complaint: General Adult Stated Complaint: SOB AND WALKING PROBLEMS Source: patient, family Exam Limitations: no limitations Vital Signs & Intake/Output Vital Signs & Intake/Output Vital Signs Date Time Temp Pulse Resp B/P B/P Pulse O2 O2 Flow FiO2 Mean Ox Delivery Rate 09/26 0957 97.3 74 20 142/79 96 Room Air 09/26 0956 97.3 74 20 142/79 09/26 0956 97.3 74 20 142/79 09/26 0701 96.0 76 20 120/73 93 Room Air 09/25 2024 98.1 76 18 153/88 97 Room Air 09/25 1428 97.0 75 18 140/75 98 Room Air 09/25 1256 96.8 87 18 136/85 96 Room Air ED Intake and Output 09/26 0000 09/25 1200 Intake Total Output Total Balance Patient 226 lb Weight Weight Reported by Patient Measurement Method Allergies Coded Allergies: Opioids - Morphine Analogues (ITCH, GI UPSET 08/03/16) Opioids-Meperidine and Related (ITCH, GI UPSET 08/03/16) Opioids-Methadone and Related (ITCH, GI UPSET 08/03/16) codeine (GI UPSET 08/03/16) morphine (ITCHING, GI UPSET 08/03/16) Reconcile Medications Allopurinol (Zyloprim) 100 MG TABLET 1 TAB PO DAILY GOUT (Reported) Amlodipine Besylate 10 MG TABLET 1 TAB PO DAILY BP (Reported) Carbidopa/Levodopa (Sinemet 25-100 MG Tablet) 25 MG-100 MG TABLET 1 TAB PO TID GAIT/TREMOR INSTABILITY (Reported) Cyanocobalamin (Vitamin B-12) 1,000 MCG TABLET 1 TAB PO DAILY SUPPLEMENT ( Reported) Duloxetine HCl (Cymbalta) 60 MG CAPSULE. 1 CAP PO [facility] (Reported) Fentanyl (Duragesic) 12 MCG/HOUR PATCH.TD72 1 PAT TOP Q3D CHRONIC BACK PAIN . Furosemide 40 MG TABLET 1 TAB PO Wednesday DIURETIC (Reported) Insulin Aspart (Novolog) 100 UNIT/ML VIAL 0 UNITS SC TIDAC DM SUGARS SS 80-150 0 UNITS 151-200 2 UNITS 201-250 3 UNITS 251-300 4 UNITS 301-350 5 UNITS 351-400 6 UNITS >400 7 UNITS CALL UR DOCTOR Insulin Detemir (Levemir) 100 UNIT/ML VIAL 6 UNIT SC DAILY DM Levothyroxine Sodium (Synthroid) 175 MCG TABLET 1 TAB PO DAILY HYPOTHYROID . Lidocaine (Lidoderm) 5 % ADH..PATCH 1 PAT TOP DAILY CHRONIC BACK PAIN .may wear up to 12 hours Lovastatin 20 MG TABLET 1 TAB PO DAILY CHOLESTEROL (Reported) Magnesium Oxide (Magnesium) 500 MG CAPSULE 1 CAP PO DAILY SUPPLEMENT ( Reported) Mirabegron (Myrbetriq) 50 MG TAB.ER.24H 1 TAB PO DAILY BLADDER (Reported) Nadolol 20 MG TABLET 1 TAB PO DAILY BP (Reported) Omeprazole 40 MG CAPSULE.DR 1 CAP PO DAILY GI (Reported) Spironolactone 25 MG TABLET 1 TAB PO DAILY DIURETIC (Reported) Triage Note: PT TO ER C/C DIFFICULTY AMBULATING AND SOB "AWHILE" HX OF CIRRHOSIS AND KIDNEY DISEASE. WAS D/C FROM [facility] FOR SAME SYMPTOMS YESTERDAY, "I WAS NOT READY TO GO HOME". PT [facility] GRE[facility]. HAD 6.5 L REMOVED VIA PARACENTESIS 2 DAYS PRIOR (PER PT). Triage Nurses Notes Reviewed? yes Onset: Gradual Duration: months Timing: cosntant HPI: 81 y/o female with h/o cirrhosis, portal HTN, HTN, HLD, DM, hypothyroid presenting with generalized weakness and difficulty ambulating. Pt was ambulating without assistance until a few months ago when she started using a walker for progressive weakness. Was recently in STR at [facility] where she received PT for 17 days and was then discharged home 2 days ago to continue PT at home. Pt lives at home with her , and reports she does not feel safe being at home. If there is a fire she feels she would be too weak to get herself out. PT came for first home visit today, and felt she was too weak to participate in the session, sent her to ED for eval. Pt also c/o chronic SOB, no worse than usual. No chest pain. Not worse with exertion. Not on any home O2. Had recent paracentesis with 6.5L ascites fluid removed. Denies abd pain, distension, NVD, dysuria. (Gauri GENAO,Brandee) Past History Travel History Traveled to [place] past 21 day No Medical History Any Pertinent Medical History? 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 MOTHER (Mother at the age of 26 years, unknown cause). Hx Contributory? No (Brandee Bain) Review of Systems Review of Systems Constitutional: Reports: no symptoms. EENTM: Reports: no symptoms. Respiratory: Reports: short of breath. Denies: cough, sputum production, wheezing. Cardiovascular: Reports: no symptoms. GI: Reports: no symptoms. Genitourinary: Reports: no symptoms. Musculoskeletal: Reports: no symptoms. Skin: Reports: no symptoms. Neurological/Psychological: Reports: weakness. Denies: headache, numbness, paresthesia, tingling. Hematologic/Endocrine: Reports: no symptoms. Immunologic/Allergic: Reports: no symptoms. (Brandee Bain) Physical Exam Physical Exam General Appearance: well developed/nourished, no apparent distress, alert, awake , comfortable Head: atraumatic, normal appearance Eyes: Bilateral: PERRL, EOMI. Neck: normal inspection Respiratory: normal breath sounds, chest non-tender, lungs clear Cardiovascular: regular rate/rhythm, normal peripheral pulses Gastrointestinal: normal bowel sounds, soft, non-tender, non-distended Back: normal inspection Extremities: pedal edema, symmetric BLE edema, no erythema or increased warmth, no calf TTP Neurologic/Psych: awake, alert, oriented x 3, normal mood/affect, customer support manager II-XII nml as tested, unsteady gait with walker, normal cerebellar function, sensation intact, motor strength 5/5 against gravity, but decreased symmetrically against resistnace in lower extremities. Reflexes: 2+: bicep (R), bicep (L), tricep (L), tricep (L), knee (R), knee (L), ankle (R), ankle (L). Skin: intact, normal color, warm/dry Core Measures ACS in differential dx? Yes CVA/TIA Diagnosis: No Sepsis Present: No Sepsis Focused Exam Completed? No (Brandee Bain) Progress Differential Diagnoses I considered the following diagnoses in my evaluation of the patient: [ deconditioning, low concern for CVA vs ICH vs SAH. SOB likely chronic, low concern for ACS vs PE vs PTX] Plan of Care: Orders Procedure Date/time Status Heart Healthy Diet 09/26 B Active PT Evaluate & Treat 09/26 210 Active CASE MANAGEMENT CONSULT 09/26 210 Active Theraputic Activities 15 Min 09/26 UNK Complete MOBILITY GOAL STATUS 09/26 UNK Complete MOBILITY CURRENT STATUS 09/26 UNK Complete Gait Training, 15 Min 09/26 UNK Complete PT EVAL LOW COMPLEX 20 MIN 09/26 UNK Complete URINALYSIS 09/25 1336 Complete TSH REFLEX 09/25 1336 Complete TROPONIN LEVEL 09/25 1336 Complete PROTHROMBIN TIME 09/25 1336 Complete AMMONIA 09/25 1336 Complete LIPASE 09/25 1336 Complete HEPATIC FUNCTION PANEL 09/25 1336 Complete CBC WITHOUT DIFFERENTIAL 09/25 1336 Complete BASIC METABOLIC PANEL 09/25 1336 Complete EKG 09/25 1236 Active Current Medications Sig/Jennifer Start time Last Medication Dose Stop Time Status Admin Duloxetine HCl 60 MG SAT 09/28 09 UNVr (Cymbalta) Allopurinol 100 MG DAILY 09/26 899 UNVr 09/26 (Zyloprim) 0956 Amlodipine Besylate 10 MG DAILY 09/26 899 UNVr 09/26 (Norvasc) 0956 Carbidopa/Levodopa 1 TAB TID 09/26 899 UNVr 09/26 (Sinemet 25/100MG) 0956 Levothyroxine Sodium 0.175 MG DAILY 09/26 899 UNVr 09/26 (Synthroid) 0956 Nadolol 20 MG DAILY 09/26 899 UNVr 09/26 (Corgard) 0956 Spironolactone 25 MG DAILY 09/26 899 UNVr 09/26 (Aldactone) 0956 Laboratory Tests 09/25/172021: Urine Color YEL, Urine Clarity CLEAR, Urine pH 6.0, Ur Specific [place] 1.020, Urine Protein NEG, Urine Ketones NEG, Urine Nitrite NEG, Urine Bilirubin NEG@ ICTO, Urine Urobilinogen 0.2, Ur Leukocyte Esterase SMALL H, Ur Microscopic SEDIMENT EXAMINED, Urine RBC RARE, Urine WBC 10-15 H, Ur Epithelial Cells MOD H, Urine Bacteria PACKD H, Urine Hemoglobin NEG, Urine Glucose NEG 09/25/17 1426: Anion Gap 15, Estimated GFR 19 L, BUN/Creatinine Ratio 23.6, Glucose 167 H, Calcium 10.6 H, Total Bilirubin 1.6 H, Direct Bilirubin 0.7 H, AST 29, ALT 22 , Alkaline Phosphatase 126, Ammonia 84 H, Troponin I 0.03, Total Protein 7.2, Albumin 3.8, Lipase 401 H, TSH &T3 &Free T4 Intrp 0.427, PT 13.9 H, INR 1.27 H, CBC w Diff NO MAN DIFF REQ, RBC 3.51 L, MCV 101.1 H, MCH 33.4 H, MCHC 33.1 , RDW 19.3 H, MPV 9.9, Gran % 66.7, Lymphocytes % 16.3 L, Monocytes % 13.2 H, Eosinophils % 2.3, Basophils % 1.5, Absolute Granulocytes 4.5, Absolute Lymphocytes 1.1 L, Absolute Monocytes 0.9 H, Absolute Eosinophils 0.2, Absolute Basophils 0.1 EKG with NSR. Labs relatively unchanged from baseline, except for lipase of 400, but LFT's unchanged and pt with no abd pain or N/V. Low concern for acute pancreatitis or obstruction. CXR unremarkable. SOB likely chronic, VS are WNL, low concern for acute pathology. Pt had unsteady gait with ambulation. Pt seen by care coordination. Will hold in the ED overnight for PT eval in the morning and likely discharge to STR. Initial ED EKG: NSR, no ST T wave changes (Gauri GENAO,Brandee) Differential Diagnoses I considered the following diagnoses in my evaluation of the patient: Hand-Off Endorsed To: Arben Rivera MD Endorsed Time: 0700 Pending: consult (Elizabeth PEREZ,Anil Marinelli) Comments: Case management has established STR. (Arben Rivera MD) Departure Departure Condition: Stable Clinical Impression Primary Impression: Weakness Referrals: Anoop Nava MD (PCP/Family) Departure Forms: Customer Survey General Discharge Information (Brandee Bain) PA/MATERIAL CHASER Co-Sign Statement Statement: ED Attending supervision documentation- [x] I saw and evaluated the patient. I have also reviewed all the pertinent lab results and diagnostic results. I agree with the findings and the plan of care as documented in the PA's/MATERIAL CHASER's documentation. [] I have reviewed the ED Record and agree with the PA's/MATERIAL CHASER's documentation. [] Additions or exceptions (if any) to the PAs/MATERIAL CHASER's note and plan are summarized below: [] (Elizabeth PEREZ,Anil Marinelli) Departure Time of Disposition: 1153 Disposition: ACUTE REHAB FACILITY PA/MATERIAL CHASER Co-Sign Statement Statement: ED Attending supervision documentation- x I saw and evaluated the patient. I have also reviewed all the pertinent lab results and diagnostic results. I agree with the findings and the plan of care as documented in the PA's/MATERIAL CHASER's documentation. [] I have reviewed the ED Record and agree with the PA's/MATERIAL CHASER's documentation. [] Additions or exceptions (if any) to the PAs/MATERIAL CHASER's note and plan are summarized below: [] (Nicole PEREZ,Arben) Critical Care Note Critical Care Note Critical Care Time: non-applicable (Brandee Bain)
[2017-09-25 14:40] LABS: ABSOLUTE BASOPHIL COUNT 0.1 /CUMM (0.0-0.2); ABSOLUTE EOSINOPHIL COUNT 0.2 /CUMM (0.0-0.7); ABSOLUTE GRANULOCYTE CT 4.5 /CUMM (1.4-6.5); ABSOLUTE LYMPH COUNT 1.1 /CUMM (1.2-3.4); ABSOLUTE MONOCYTE COUNT 0.9 /CUMM (0.10-0.60); BASOPHIL % 1.5 % (0.0-2.0); EOSINOPHIL % 2.3 % (0-5); GRANULOCYTE % 66.7 % (42.2-75.2); HEMATOCRIT 35.5 % (37-47); MEAN CORPUSCULAR HGB 33.4 PG (27.0-31.0); MEAN CORPUSCULAR HGB CONC 33.1 G/DL (33.0-37.0); MEAN CORPUSCULAR VOLUME 101.1 FL (81.0-99.0); MEAN PLATELET VOLUME 9.9 FL (7.4-10.4); PLATELET COUNT 130 /CUMM (130-400); RBC DISTRIBUTION WIDTH 19.3 % (11.5-14.5); RED BLOOD CELL CT 3.51 /CUMM (4.20-5.40); WHITE BLOOD CELL COUNT 6.7 /CUMM (4.8-10.8)
[2017-09-25 14:43] LABS: PT 13.9 SEC (9.4-12.5)
--- NOTE | 2017-09-25 14:52 | RADIOLOGY REPORT ---
EXAMINATION: XR CHEST CLINICAL INFORMATION: Shortness of breath. COMPARISON: Chest radiograph 09/03/2017. TECHNIQUE: 2 views of the chest were obtained. FINDINGS: Stable mild elevation of the right hemidiaphragm and stable scarring/atelectasis in the left lung base. Lungs are otherwise clear. No pleural effusion. Cardiomediastinal silhouette and pulmonary vasculature are within normal limits. There is atherosclerotic changes of the thoracic aorta and degenerative changes of the visualized spine. Cholecystectomy clips are noted in the abdomen. IMPRESSION: No acute cardiopulmonary disease.
[2017-09-26 09:57] VITALS: BP 142/79
== END 2017-09-26 12:39 ==
LOC: ERH 12:34
PROVIDERS: Physician Assistant
DX: R53.1 Weakness (principal)
CPT/HCPCS: 71046; 81001; 93005; 93010; 97116-GP; 97161-GP; 97530-GP; G8978-GP; G8979-GP

== ENCOUNTER 2017-10-04 10:46 | Inpatient (IN) | payer OTHER, MEDICARE ==
[~2017-10-04] VITALS: Ht 165.1 cm; Wt 96.4 kg
--- NOTE | 2017-10-04 11:11 | ED AMS/SEIZURE/WEAK/DIZZY ---
History of Present Illness General Chief Complaint: General Adult Stated Complaint: LETHARGY Source: family, W10 Exam Limitations: not alert/orientated Vital Signs & Intake/Output Vital Signs & Intake/Output Vital Signs Date Time Temp Pulse Resp B/P B/P Pulse O2 O2 Flow FiO2 Mean Ox Delivery Rate 10/04 1607 98.7 81 18 163/84 97 Room Air 10/04 1308 97.7 76 20 117/77 98 Room Air Room Air 10/04 1050 98.4 71 20 140/87 98 Room Air Allergies Coded Allergies: Opioids - Morphine Analogues (ITCH, GI UPSET 08/03/16) Opioids-Meperidine and Related (ITCH, GI UPSET 08/03/16) Opioids-Methadone and Related (ITCH, GI UPSET 08/03/16) codeine (GI UPSET 08/03/16) morphine (ITCHING, GI UPSET 08/03/16) Reconcile Medications Allopurinol (Zyloprim) 100 MG TABLET 1 TAB PO DAILY GOUT (Reported) Amlodipine Besylate 10 MG TABLET 1 TAB PO DAILY BP (Reported) Carbidopa/Levodopa (Sinemet 25-100 MG Tablet) 25 MG-100 MG TABLET 1 TAB PO TID GAIT/TREMOR INSTABILITY (Reported) Cyanocobalamin (Vitamin B-12) 1,000 MCG TABLET 1 TAB PO DAILY SUPPLEMENT ( Reported) Duloxetine HCl (Cymbalta) 60 MG CAPSULE. 1 CAP PO [facility] (Reported) Fentanyl (Duragesic) 12 MCG/HOUR PATCH.TD72 1 PAT TOP Q3D CHRONIC BACK PAIN . Furosemide 40 MG TABLET 1 TAB PO Wednesday DIURETIC (Reported) Insulin Aspart (Novolog) 100 UNIT/ML VIAL 0 UNITS SC TIDAC DM SUGARS SS 80-150 0 UNITS 151-200 2 UNITS 201-250 3 UNITS 251-300 4 UNITS 301-350 5 UNITS 351-400 6 UNITS >400 7 UNITS CALL UR DOCTOR Insulin Detemir (Levemir) 100 UNIT/ML VIAL 6 UNIT SC DAILY DM Levothyroxine Sodium (Synthroid) 175 MCG TABLET 1 TAB PO DAILY HYPOTHYROID . Lidocaine (Lidoderm) 5 % ADH..PATCH 1 PAT TOP DAILY CHRONIC BACK PAIN .may wear up to 12 hours Lovastatin 20 MG TABLET 1 TAB PO DAILY CHOLESTEROL (Reported) Magnesium Oxide (Magnesium) 500 MG CAPSULE 1 CAP PO DAILY SUPPLEMENT ( Reported) Mirabegron (Myrbetriq) 50 MG TAB.ER.24H 1 TAB PO DAILY BLADDER (Reported) Nadolol 20 MG TABLET 1 TAB PO DAILY BP (Reported) Omeprazole 40 MG CAPSULE.DR 1 CAP PO DAILY GI (Reported) Ondansetron HCl (Zofran) 4 MG TABLET 1 TAB PO Q8P PRN NAUSEA/VOMITING ( Reported) Spironolactone 25 MG TABLET 1 TAB PO DAILY DIURETIC (Reported) Triage Note: BIBA FROM F. PER EMS SNF STAFF WAS UNABLE TO AROUSE PT THIS MORNING. SNF STAFF SAT PT UP AND SHE AWOKE BUT WAS STILL LETHARGIC. EMS STATED THAT PT HAS BEEN LETHARGIC WHILE IN THEIR CARE. EMS STATED THAT PT DID NOT VERBALIZE ANY COMPLAINTS WHILE IN THEIR CARE. Triage Nurses Notes Reviewed? yes HPI: Patient is an 81-year-old female who is brought in from [facility] where she was recently placed after ambulatory disability who this morning has altered mental status. She was scheduled for discharge from the ECF today but when the time came for her to go home was found to be difficult to rouse. She does have apparent liver disease with ascites and requires paracenteses, and according to her is "due" for one. She has had elevated levels of ammonia in the past. However, it was also noted that at prior ECF discharges the patient has "faked it," and been altered in an attempt to not be discharged home. It is unclear at the present time whether her altered mental status is organic or psychogenic, however she is unable to participate in any further details of the HPI or review of systems. Past History Travel History Traveled to [place] past 21 day No Medical History Any Pertinent Medical History? 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 MOTHER (Mother at the age of 26 years, unknown cause). Hx Contributory? Yes Review of Systems Review of Systems Constitutional: Reports: see HPI. Comments Other than the features mentioned in history of present illness above, a detailed review of systems was not possible secondary to the patient's altered mental status Physical Exam Physical Exam General Appearance: lethargic Comments: HEENT: Inspection of the head reveals a normocephalic cranium with no signs of trauma. Ophtho: Extraocular muscles are intact and pupils are equal and reactive to light bilaterally with no afferent pupillary defect. The sclera are noninjected , and there is no obvious discharge. Neck: The trachea is midline, there is no obvious asymmetry or mass over the thyroid, and there is no wincing on palpation of the midline cervical spine. Respiratory: The lungs are clear and equal to auscultation bilaterally without wheezes, rales, or rhonchi. The patient exhibits no signs of labored breathing. Cardiac: Regular rhythm and non-tachycardic without appreciable murmurs on auscultation. No obvious JVD. GI: Examination of the abdomen reveals significant distention consistent with history of ascites. : Deferred Neuro: Focused neurologic examination was attempted, but secondary to the patient's altered mental status, it was extremely limited. Features that were obtainable included equal pupils and a lack of gross focal motor abnormality on patient's limited passive motion. Behavioral: Altered. Psychiatric: Unable to assess secondary to altered mental status. Dermatologic: Dermatologic examination reveals no diffuse rashes or exanthems, no petechiae, no ecchymoses, and no other signs of erythema or infection. Core Measures ACS in differential dx? Yes CVA/TIA Diagnosis Yes Sepsis Present: No Sepsis Focused Exam Completed? No Progress Differential Diagnosis: anemia, CVA/stroke, dehydration, encephalitis, electrolyte imbalance, GI bleed, hypoglycemia, hypoxia, intracranial Hem., labrynthitis, meningitis, sepsis Plan of Care: Orders Procedure Date/time Status CBC WITHOUT DIFFERENTIAL 10/05 599 Active BASIC ELECTROLYTES PLUS BUN&CR 10/05 599 Active Nothing by Mouth 10/04 L Complete Nothing by Mouth 10/04 D Active Weight 10/04 1942 Active Vital Signs 10/04 1942 Active Teach/Educate 10/04 1942 Active Pain Treatment and Response 10/04 1942 Active Nutritional Intake, Monitor 10/04 1942 Active Isolation 10/04 1942 Active Intake & Output 10/04 1942 Active Patient Care Conference 10/04 1942 Active Activity/Ambulation 10/04 1942 Active LACTIC ACID 10/04 1840 Complete Patient Data 10/04 1644 Active BLOOD CULTURE 10/04 1626 Active Add-on Test (ER Only) 10/04 1622 Active LACTIC ACID 10/04 1540 Active Add-on Test (ER Only) 10/04 1530 Active PROTHROMBIN TIME 10/04 1526 Active Pathway - chart 10/04 1523 Active House Staff 10/04 1523 Active Patient Data 10/04 1523 Active Code Status 10/04 1523 Active CULTURE,BODY FLUID 10/04 1509 Active CYTOLOGY SPECIMEN 10/04 1509 Active BODY FLUID TOTAL PROTEIN 10/04 1509 Active BODY FLUID LDH 10/04 1509 Active BODY FLUID CELL COUNT 10/04 1509 Active BODY FLUID GLUCOSE 10/04 1509 Active BODY FLUID AMYLASE 10/04 1509 Active BODY FLUID ALBUMIN 10/04 1509 Active ED Holding Orders 10/04 1418 Active Admit to inpatient 10/04 1418 Active Code Status 10/04 1418 Complete PROTHROMBIN TIME 10/04 1250 Complete LACTIC ACID 10/04 1250 Complete Byrne, Insertion/Removal/Asses 10/04 1106 Active CULTURE,URINE 10/04 1106 Active URINE DRUG SCREEN FOR ER ONLY 10/04 1106 Complete URINALYSIS 10/04 1106 Complete COMPREHENSIVE METABOLIC PANEL 10/04 1106 Complete CBC WITHOUT DIFFERENTIAL 10/04 1106 Complete AMMONIA LEVEL 10/04 1106 Complete Intake & Output 10/04 1100 Active VTE Mechanical Prophylaxis 10/04 UNK Active FingerStick- Glucose 10/04 UNK Active Current Medications Sig/Jennifer Start time Last Medication Dose Stop Time Status Admin Heparin Sodium 5,000 UNIT Q8 10/05 0600 AC (Porcine) Insulin Human Regular 0 Q6 10/04 1800 AC (NovoLIN R) Ceftriaxone Sodium 1,000 MG DAILY 10/04 1630 AC (Rocephin) Dextrose/Sodium 1,000 ML Q13H / 1530 AC 10/04 Chloride 1608 (D5W-1/2 Normal Saline 1000ML) Lactulose 1 BOT Q4 10/04 1515 AC 10/04 (Lactulose Enema 1608 (Pom Only)) Laboratory Tests 10/04/17 1950: Lactic Acid 1.8, PT Pending, INR Pending 10/04/17 1343: Urine Opiates Screen < 100, Methadone Screen 72, Barbiturate Screen < 60, Ur Phencyclidine Scrn < 6.00, Amphetamines Screen < 100, U Benzodiazepines Scrn < 85, Urine Cocaine Screen < 50, Urine Cannabis Screen < 5.00, Urine Color YEL, Urine Clarity HAZY H, Urine pH 6.0, Ur Specific [place] 1.020, Urine Protein NEG, Urine Ketones NEG, Urine Nitrite NEG, Urine Bilirubin NEG@ICTO, Urine Urobilinogen 0.2, Ur Leukocyte Esterase LARGE H, Ur Microscopic SEDIMENT EXAMINED, Urine WBC 25-50 H, Ur Epithelial Cells FEW, Urine Bacteria PACKD H, Hyaline Casts 10-15 H, Urine Hemoglobin NEG, Urine Glucose NEG 10/04/17 1250: Anion Gap 13, Estimated GFR 16 L, BUN/Creatinine Ratio 22.1, Glucose 115 H, Lactic Acid 1.8, Calcium 10.7 H, Total Bilirubin 1.4 H, AST 28, ALT 21, Alkaline Phosphatase 142 H, Ammonia 114 H, Total Protein 6.8, Albumin 3.5, Globulin 3.3, Albumin/Globulin Ratio 1.1, PT 13.2 H, INR 1.21 H, CBC w Diff NO MAN DIFF REQ, RBC 3.54 L, MCV 99.7 H, MCH 33.5 H, MCHC 33.5, RDW 18.2 H, MPV 9.1, Gran % 65.9, Lymphocytes % 18.4 L, Monocytes % 13.9 H, Eosinophils % 1.5, Basophils % 0.3, Absolute Granulocytes 4.6, Absolute Lymphocytes 1.3, Absolute Monocytes 1.0 H, Absolute Eosinophils 0.1, Absolute Basophils 0 Microbiology 10/05 1999 BLOOD: Blood Culture - RECD 10/04 1949 BLOOD: Blood Culture - RECD 10/04 150 BODY FLUID: Body Fluid Culture - COLB 10/04 150 BODY FLUID: Gram Stain - COLB 10/04 134 URINE ROUT: Urine Culture - RECD Initial ED EKG: none Comments: Patient with nonalcoholic steatohepatitis with cirrhosis presented today with worsening ascites and altered mental status. Ammonia was elevated. Patient will require hospitalization for GI consultation, paracentesis, lactulose and menstruation, and close monitoring as her altered mental status improves. Hospitalized in fair and improved condition. Departure Departure Disposition: STILL A PATIENT Condition: Stable Clinical Impression Primary Impression: Increased ammonia level Referrals: Brandy PEREZ,Anoop Moore (PCP/Family) Departure Forms: Customer Survey General Discharge Information Admission Note Spoke With: Suresh Fitzpatrick MD Documentation of Exam: Documentation of any treatments & extenuating circumstances including Concerns Regarding Discharge (functional status, medication knowledge or non-compliance, living conditions, etc.) that warrant an admission rather than observation: Patient is an elderly female with past medical history of nonalcoholic steatohepatitis with significant cirrhosis and prior paracentesis procedures who presented today for worsening of her altered mental status. Her ascites have increased dramatically of late, and she has had hyperammonemia in the past leading to her altered sensorium. Her levels today were significantly elevated again, and her abdomen indicates distention secondary to her ascites. I feel that discharge home would be unsafe given that she is not currently on lactulose and needs GI consultation for control of her ammonia levels and her liver disease, as well as paracentesis for better control of her ascites to prevent abdominal compartment syndrome. Hospitalized in fair and unchanged condition.
[2017-10-04] MEDS ORDERED: ZOFRAN4 M2 PO (11:19)
[2017-10-04 13:03] LABS: ABSOLUTE BASOPHIL COUNT 0 /CUMM (0.0-0.2); ABSOLUTE EOSINOPHIL COUNT 0.1 /CUMM (0.0-0.7); ABSOLUTE GRANULOCYTE CT 4.6 /CUMM (1.4-6.5); ABSOLUTE LYMPH COUNT 1.3 /CUMM (1.2-3.4); BASOPHIL % 0.3 % (0.0-2.0); EOSINOPHIL % 1.5 % (0-5); GRANULOCYTE % 65.9 % (42.2-75.2); HEMATOCRIT 35.3 % (37-47); MEAN CORPUSCULAR HGB 33.5 PG (27.0-31.0); MEAN CORPUSCULAR HGB CONC 33.5 G/DL (33.0-37.0); MEAN CORPUSCULAR VOLUME 99.7 FL (81.0-99.0); MEAN PLATELET VOLUME 9.1 FL (7.4-10.4); PLATELET COUNT 144 /CUMM (130-400); RBC DISTRIBUTION WIDTH 18.2 % (11.5-14.5); RED BLOOD CELL CT 3.54 /CUMM (4.20-5.40); WHITE BLOOD CELL COUNT 6.9 /CUMM (4.8-10.8)
--- NOTE | 2017-10-04 14:55 | History & Physical ---
Piotr Rodríguez MD,[facility] 10/04/17 3725: General Information and HPI MD Statement: I have seen and personally examined ANGELA LEMOS and documented this H&P. The patient is a 81 year old F who presented with a patient stated chief complaint of [lethargy]. Exam Limitations: unable to give history History of Present Illness: patient is 81-year-old female with PMH of CAD, HTN, HLD, DM, hypothyroidism, chronic back pain, JACKSON/cirrhosis, and CKD Stage IIIB/IV was brought in from [facility] to the ED for evaluation of altered mental status. Family were present at the bedside and contributed in history taking Patient was recently discharged from [place] in 10/07/17 after evaluation and treatment for LE edema, abdominal distension and SOB in setting of decompensated cirrhosis. During the previous admission patient went under paracentesis of 6.1 L fluid and was then discharged to [facility]. Of note management of patients fluid condition was somewhat limited by chronic kidney disease (patient had JOHN in July). This morning patient was planned to be discharged from [facility]. Patient was relatively stable and was planned to be discharged today from [facility]. According to family she noted that she was not ready to be discharged, she had poor appetite, complaining of right leg pain, and also complained of nausea and vomiting for the last 3 days, yet she was alert and oriented. This morning she was not responsive. Dr. Bradley was contacted who advised to transfer to hospital. Allergies/Medications Allergies: Coded Allergies: Opioids - Morphine Analogues (ITCH, GI UPSET 08/03/16) Opioids-Meperidine and Related (ITCH, GI UPSET 08/03/16) Opioids-Methadone and Related (ITCH, GI UPSET 08/03/16) codeine (GI UPSET 08/03/16) morphine (ITCHING, GI UPSET 08/03/16) Home Med list Allopurinol (Zyloprim) 100 MG TABLET 1 TAB PO DAILY GOUT (Reported) Amlodipine Besylate 10 MG TABLET 1 TAB PO DAILY BP (Reported) Carbidopa/Levodopa (Sinemet 25-100 MG Tablet) 25 MG-100 MG TABLET 1 TAB PO TID GAIT/TREMOR INSTABILITY (Reported) Cyanocobalamin (Vitamin B-12) 1,000 MCG TABLET 1 TAB PO DAILY SUPPLEMENT ( Reported) Duloxetine HCl (Cymbalta) 60 MG CAPSULE. 1 CAP PO TUES THURS SAT MENTAL HEALTH (Reported) Fentanyl (Duragesic) 12 MCG/HOUR PATCH.TD72 1 PAT TOP Q3D CHRONIC BACK PAIN . Furosemide 40 MG TABLET 1 TAB PO Wednesday DIURETIC (Reported) Insulin Aspart (Novolog) 100 UNIT/ML VIAL 0 UNITS SC TIDAC DM SUGARS SS 80-150 0 UNITS 151-200 2 UNITS 201-250 3 UNITS 251-300 4 UNITS 301-350 5 UNITS 351-400 6 UNITS >400 7 UNITS CALL UR DOCTOR Insulin Detemir (Levemir) 100 UNIT/ML VIAL 6 UNIT SC DAILY DM Levothyroxine Sodium (Synthroid) 175 MCG TABLET 1 TAB PO DAILY HYPOTHYROID . Lidocaine (Lidoderm) 5 % ADH..PATCH 1 PAT TOP DAILY CHRONIC BACK PAIN .may wear up to 12 hours Lovastatin 20 MG TABLET 1 TAB PO DAILY CHOLESTEROL (Reported) Magnesium Oxide (Magnesium) 500 MG CAPSULE 1 CAP PO DAILY SUPPLEMENT ( Reported) Mirabegron (Myrbetriq) 50 MG TAB.ER.24H 1 TAB PO DAILY BLADDER (Reported) Nadolol 20 MG TABLET 1 TAB PO DAILY BP (Reported) Omeprazole 40 MG CAPSULE.DR 1 CAP PO DAILY GI (Reported) Ondansetron HCl (Zofran) 4 MG TABLET 1 TAB PO Q8P PRN NAUSEA/VOMITING ( Reported) Spironolactone 25 MG TABLET 1 TAB PO DAILY DIURETIC (Reported) Past History Travel History Traveled to [place] past 21 day No Medical History Neurological: migraine, peripheral neuropathy EENT: NONE Cardiovascular: hypertension, hyperlipidemia Respiratory: NONE Gastrointestinal: GERD, portal hypertension, gastropathy varices Hepatic: cirrhosis Renal: urinary incontinence, KIDNEY FAILURE Musculoskeletal: gout, restless leg syndrome Psychiatric: depression Endocrine: diabetes, hypothyroidism Blood Disorders: thrombocytopenia Cancer(s): NONE 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 MOTHER (Mother at the age of 26 years, unknown cause). Psychosocial History Who Do You Live With? spouse Services at Home: None Primary Language: Emirati Living Will? no Functional Ability ADLs Independent: dressing, eating, toileting, bathing. Ambulation: walker IADLs Independent: shopping, housework, finances, food prep, telephone, medication admin. Needs Assist: transportation. Review of Systems Review of Systems Constitutional: Reports: see HPI. Exam & Diagnostic Data Last 24 Hrs of Vital Signs/I&O Vital Signs Date Time Temp Pulse Resp B/P B/P Pulse O2 O2 Flow FiO2 Mean Ox Delivery Rate 10/04 1607 98.7 81 18 163/84 97 Room Air 10/04 1308 97.7 76 20 117/77 98 Room Air Room Air 10/04 1050 98.4 71 20 140/87 98 Room Air Intake & Output 10/04 1600 10/04 0800 10/04 0000 Intake Total 0 Output Total Balance 0 Intake, Oral 0 Physical Exam General Appearance No Acute Distress, nonverbal, opens eyes response to verbal and painful stimulate Skin bilateral LE edema, Right legf tender to palpation Skin Temp/Moisture Exam: Warm/Dry Sepsis Skin Exam (color): Normal for Ethnicity HEENT Pupil reactive Cardiovascular Normal S1, Normal S2 Lungs decrased air entry bilaterally Abdomen distanded Extremities as noted above Last 24 Hrs of Labs/Unruly: Laboratory Tests 10/04/17 1343: Urine Opiates Screen < 100, Methadone Screen 72, Barbiturate Screen < 60, Ur Phencyclidine Scrn < 6.00, Amphetamines Screen < 100, U Benzodiazepines Scrn < 85, Urine Cocaine Screen < 50, Urine Cannabis Screen < 5.00, Urine Color YEL, Urine Clarity HAZY H, Urine pH 6.0, Ur Specific [place] 1.020, Urine Protein NEG, Urine Ketones NEG, Urine Nitrite NEG, Urine Bilirubin NEG@ICTO, Urine Urobilinogen 0.2, Ur Leukocyte Esterase LARGE H, Ur Microscopic SEDIMENT EXAMINED, Urine WBC 25-50 H, Ur Epithelial Cells FEW, Urine Bacteria PACKD H, Hyaline Casts 10-15 H, Urine Hemoglobin NEG, Urine Glucose NEG 10/04/17 1250: Anion Gap 13, Estimated GFR 16 L, BUN/Creatinine Ratio 22.1, Glucose 115 H, Lactic Acid 1.8, Calcium 10.7 H, Total Bilirubin 1.4 H, AST 28, ALT 21, Alkaline Phosphatase 142 H, Ammonia 114 H, Total Protein 6.8, Albumin 3.5, Globulin 3.3, Albumin/Globulin Ratio 1.1, PT 13.2 H, INR 1.21 H, CBC w Diff NO MAN DIFF REQ, RBC 3.54 L, MCV 99.7 H, MCH 33.5 H, MCHC 33.5, RDW 18.2 H, MPV 9.1, Gran % 65.9, Lymphocytes % 18.4 L, Monocytes % 13.9 H, Eosinophils % 1.5, Basophils % 0.3, Absolute Granulocytes 4.6, Absolute Lymphocytes 1.3, Absolute Monocytes 1.0 H, Absolute Eosinophils 0.1, Absolute Basophils 0 Microbiology 10/04 1626 BLOOD: Blood Culture - ORD 10/04 1626 BLOOD: Blood Culture - ORD 10/04 1509 BODY FLUID: Body Fluid Culture - COLB 10/04 1509 BODY FLUID: Gram Stain - COLB 10/04 1343 URINE ROUT: Urine Culture - RECD Assessment/Plan Assessment: patient is 81-year-old female preetend after episode of being unresponsive PMH: CAD, HTN, HLD, DM, hypothyroidism, chronic back pain, JACKSON/cirrhosis, and CKD Stage IIIB/IV VS, Ph Ex at admission:insignificant, no fever Labs at admission:Hgb 11.8, WBC 6.9, plt 144, BEP: Cr 2.8, CA 10.7, total Héctor 1.4 Imagings at admission: Patient was admitted to [facility] floor for management of following conditions: Altered mental status most likely related to hepatic encephalopaty/UTI/JOHN Leg pain and tenderness JOHN Active UA Chronic medical condition - admit to [facility] floor - NPO for now - lactoluse per rectum, BM 2-3 /day - follow GI consult - CT scan of head - paracenthesis, diag and therap - hold AB for UTI for now, pending paracenthesis, can start AB if no paracenthesis - gentle IV hydraion - monitor and replete Electrolytes - COntinue home medication, hold PO - IDDM: sliding scale and accuchecks - LE doppler rule out DVT NPO DNR DNI As Ranked By This Provider Problem List: 1. Altered mental status Core Measures/Misc (02/14) Acute Coronary Syndrome ACS Diagnosis: No Congestive Heart Failure Congestive Heart Failure Diagnosis No Cerebrovascular Accident CVA/TIA Diagnosis: No VTE (View Protocol) VTE Risk Factors Age>40 No Mechanical VTE Prophylaxis d/t N/A MechProphylax Ordered No VTE Pharm Prophylaxis d/t NA PharmProphylax ordered Sepsis (View protocol) Sepsis Present: Sari Meza 10/04/17 1525: Resident Review Statement Resident Statement: examined this patient, discussed with technology intern Other Findings: Patient is a 81-year-old woman with past medical history significant for hypertension and hyperlipidemia, coronary artery disease, cirrhosis secondary to JACKSON, history of hypothyroidism chronic back pain, history of stage III CKD , recently discharged from [facility] on September 07 to [place] after being treated for recurrent ascites secondary to decreased percentage cirrhosis( from [place]).presented to the ED from [facility] for the evaluation of altered mental status. At the time of evaluation patient was minimally responsive to verbal commands, appeared drowsy. So most of the history was obtained from the daughter. As per daughter since the discharge the patient was slightly better but never came to her baseline, she was in bed most of the time. About 3 days ago she started having nausea and vomiting and felt sick to the stomach, she didn't have any appetite, yesterday she had diarrhea. Patient was mentating okay until this morning when the nurses found her unresponsive, and 911 was called in. As per daughter patient was seen by Dr. Bradley last and she was supposed to get diagnostic/therapeutic paracentesis today for worsening ascites. Vitals in the ER Temperature 98.4, pulse 71, respiratory 20, blood pressure 140/87 on room air. General Appearance: Drowsy/lethargic and minimally responsive to verbal commands /sternal rub Skin: Grossly normal HEENT: PEERLA Neck: Supple, No JVD Cardiovascular: Regular Rate, Normal S1, Normal S2, No Murmurs Lungs: Clear to Auscultation, Normal Air Movement Abdomen: Distended abdomen positive fluid thrill with positive bowel sounds Neurological: Normal Speech, Strength at 5/5 X4 Ext, Cranial Nerves 3-12 NL, Reflexes 2+ Extremities: Bilateral leg swelling with tenderness(more obvious on the right leg) Vascular: Normal Pulses Pertinent labs on admission No evidence of leukocytosis H&H low but stable elevated BUN and creatinine 62/ 2.8, ammonia level is high at 114 Urine toxicology is negative Urine analysis positive for large leukocyte esterase. Assessment Altered mental status with hyperammonemia Rule out intracranial bleed/stroke Ascites secondary to decompensated liver from [place] Acute on chronic kidney injury likely in the setting of dehydration. Urinary tract infection Chronic normocytic anemia in the setting of chronic kidney disease History of hypothyroidism History of insulin-dependent diabetes mellitus History of hypertension and hyperlipidemia History of urinary incontinence History of chronic back pain History of parkinsonism Plan Altered mental status with hyperammonemia: * Admit the patient [facility] floor * Keep the patient nothing by mouth for now and start her on lactulose per rectal every 4 hours titrating to 2-3 bowel movements every day. * Neurochecks every 2-3 hrs * No need to repeat ammonia levels * GI has been consulted we'll follow the recommendations * Continue gentle hydration with D5 half-normal saline. * Will rule out any source of infection leading to acute encephalopathy. Rule out intracranial bleed/stroke * Will do CT head without contrast to rule out any intracranial bleed/stroke. Ascites secondary to decompensated liver from [place] * GI has been consulted, as per GI recommendations, continue with the per rectal lactulose * We will hold off paracentesis for now until movement of her mental status. * Follow GI recommendations Acute on chronic kidney injury likely in the setting of dehydration. * Continue gentle hydration with D5 half-normal saline * Repeat BEP tomorrow * Avoid any nephrotoxic agents. Urinary tract infection * Start the patient on ceftriaxone and awaiting blood and urine cultures Chronic normocytic anemia in the setting of chronic kidney disease * Monitor H&H, watch for any active signs of bleed. History of hypothyroidism * Continue levothyroxine from tomorrow if patient still appears drowsy and unable to eat was started on IV levothyroxine. History of insulin-dependent diabetes mellitus * Nothing by mouth insulin sliding scale with D5 half normal saline normal saline. hold off other medications for now. DVT prophylaxis with subcutaneous heparin Patient is DNR/DNI(CODE STATUS confirmed with the daughters and the ) Francisca Dick MD 10/04/17 1716: Attending MD Review Statement Attending Statement Attending MD Statement: examined this patient, discuss w/resident/PA/DOG CONTROL OFFICER, agreed w/resident/PA/DOG CONTROL OFFICER, discussed with family, reviewed EMR data (avail), discussed with nursing, amended to note Attending Assessment/Plan: Patient is an 89-year-old female with medical history of cirrhosis secondary to JACKSON. She was scheduled for discharge today from her SNF when she became unresponsive. Per family over the past few days she has become more lethargic. She arrivedShe arrived in the ERE afebrile and hemodynamically stable. She was unresponsive however she is reported to open her eyes spontaneously on ocassion. Labs were obtained in the Er and she was found to have an elevated ammonia level. Following this she was promptly referred to the in-patient medical team for further management. When we evaluated the patient in the ER whe was resting comfortably. She would open her eyes spontaneuosly on ocassion. She would try to mumble some words. She did not follow commands. She had no facial asymetry. Pupils were equal and reactive. She grimaced sligtly on examination of her left lg. She had trace edema biklaterally. Abd was distended not tense and non-tender. Bowel sounds were normal. Problems: 1. Altered Mental Status 2. Ascites. 3. Cirrhosis. 4. Lower Ext pain 5. Abnormal UA. Plan: -Admit to the inpatient medical service.Admit to the in-patient medical service. -AMS is likely secondary to hepatic encephalopathy. Begin patient on lactulose. Admnsiter rectally due to her altered mentation to avoid aspiration. -Obtain Head CT to rule out acute intracranial process. -She was scheduled for paracentesis today. This can be done electively as she does not present with a picture concerning for SBP. -Abnormal UA. Query significance in the abscence of any reported symptoms. Treat empirically pending culture results and improvement in mentation. -Doppler of LE to r/o DVT. -
[2017-10-04 15:50] LABS: PT 13.2 SEC (9.4-12.5)
--- NOTE | 2017-10-04 16:09 | CT SCAN REPORT ---
EXAMINATION: CT HEAD WITHOUT CONTRAST CLINICAL INFORMATION: Altered mental status. COMPARISON: CT head 06/29/2016 TECHNIQUE: Contiguous axial imaging was performed from the skull base to vertex without intravenous administration of contrast. DLP: 597.46 mGy-cm FINDINGS: There is no evidence of acute intracranial hemorrhage or territorial infarction. No abnormal mass effect or midline shift is seen. Zimmerman to white matter differentiation is well preserved. No extra-axial fluid collections are identified. There is atrophy with prominence of the ventricles and the sulci and hypodensity of the periventricular white matter due to chronic small vessel ischemic disease. There is vascular calcifications of the internal carotid arteries bilaterally.. The osseous structures and soft tissues are normal. The mastoid air cells and visualized portions of the paranasal sinuses are well aerated. IMPRESSION: No acute intracranial pathology.
--- NOTE | 2017-10-04 17:05 | ULTRASOUND REPORT ---
EXAMINATION: US TRIPLEX OF LOWER EXTREMITIES, BILATERAL CLINICAL INFORMATION: Lower extremity pain and swelling. COMPARISON: Lower extremity venous ultrasound from 09/04/2017 and 05/14/2017. TECHNIQUE: Color-flow triplex imaging with spectral analysis and compression Doppler were performed on the lower extremities. FINDINGS: The common femoral vein is compressible and exhibits a normal phasic waveform, bilaterally; this suggests that the iliac veins are widely patent above. Within each proximal thigh, the visualized profunda femoris vein is patent. The visualized right greater saphenous veins and saphenofemoral junctions are normal. The left greater saphenous vein is not identified; question whether it was surgically removed or ablated. Superficial femoral vein is patent in the proximal, mid and distal aspect of each thigh. Popliteal vein appears normal to the level of the trifurcation, bilaterally, and the visualized calf veins are unremarkable. Within the right popliteal fossa, there is mild fluid distention of the semimembranosus-medial gastrocnemius bursa. IMPRESSION: - No evidence of deep vein thrombosis in either lower extremity. - Within the right popliteal fossa, there is mild fluid distention of the semimembranosus-medial gastrocnemius bursa.
--- NOTE | 2017-10-04 17:12 | Admission Certification ---
Admission Certification Certification Statement - As attending physician, I certify that at the time of - admission, based on clinical presentation, severity of - symptoms, need for further diagnostic testing and - therapeutic interventions, and risk of adverse outcomes - without in-hospital treatment, in my clinical assessment, - this patient requires an acute hospital stay for a minimum - of two nights or longer. I have also considered psychsocial - factors such as support system, advanced age, financial - issues, cognitive issues, and failed out-patient treatments, - past re-admission history, safety of patient, and lack of - compliance as applicable. Specific rationale supporting this admission is: Patient will be admitted for management of her altered mentation
[2017-10-04 19:00] VITALS: BP 170/98
[2017-10-04 20:50] LABS: PT 13.8 SEC (9.4-12.5)
[2017-10-04 23:08] VITALS: BP 142/69
[2017-10-05 06:51] VITALS: BP 146/108
--- NOTE | 2017-10-05 07:40 | PN- Housestaff ---
Guilherme PEREZ,Latasha 10/05/17 0739: Subjective Follow-up For: Altered mental status most likely related to hepatic encephalopaty/UTI/JOHN Leg pain and tenderness JOHN Active UA Chronic medical condition Complaints: pt unable to provide hx Subjective: Patient seen and examined. She continues to have poor mental status only opening eyes to name. She continues to be nonverbal. Abdomen distended with a significant amount of fluid. The patient has been getting lactulose enemas but as per nurse report she has only been having small stools and expelling much of the enema. Review of Systems Constitutional: Reports: no symptoms, weakness. Gastrointestinal: Reports: see HPI. Neurological/Psychological: Reports: cognitive dysfunction. Objective Last 24 Hrs of Vital Signs/I&O Vital Signs Date Time Temp Pulse Resp B/P B/P Pulse O2 O2 Flow FiO2 Mean Ox Delivery Rate 10/05 1115 138/98 10/05 0651 97.6 79 20 146/108 100 Room Air 05 0000 94 Room Air 10/04 2308 98.4 78 18 142/69 94 Room Air 10/04 1900 98.1 77 18 170/98 94 Room Air 10/04 1607 98.7 81 18 163/84 97 Room Air 10/04 1308 97.7 76 20 117/77 98 Room Air Room Air Intake & Output 10/05 1600 08 0800 10/05 0000 Intake Total 600 475 Output Total 130 150 Balance 470 325 Intake, IV 600 475 Intake, Oral 0 Number 2 1 Bowel Movements Output, Urine 130 150 Patient 213 lb 203 lb 214 lb Weight Weight Bed scale Bed scale Estimated Measurement Method Physical Exam General Appearance: No Acute Distress Skin: bilateral lower extremity edeam 2+ Skin Temp/Moisture Exam: Warm/Dry Sepsis Skin Exam (color): Normal for Ethnicity HEENT: Atraumatic, PERRLA, Mucous Membr. moist/pink Cardiovascular: Normal S1, Normal S2 Lungs: Clear to Auscultation, Normal Air Movement Abdomen: Normal Bowel Sounds, No Tenderness, distended Extremities: No Clubbing, No Cyanosis Vascular: Normal Pulses, Pulses Symmetrical Current Medications: Current Medications Sig/Jennifer Start time Last Medication Dose Route Stop Time Status Admin Ceftriaxone Sodium 1,000 MG DAILY@2215 10/05 221 AC IV Ceftriaxone Sodium 0 .STK-MED ONE 10/04 1830 DC .ROUTE Ceftriaxone Sodium 1,000 MG DAILY 10/04 1630 DC 10/04 IV 2214 Dextrose/Sodium 1,000 ML Q13H 10/04 1530 AC 10/05 Chloride IV 0443 Heparin Sodium 5,000 UNIT Q8 10/05 0600 AC 10/05 (Porcine) SC 1301 Insulin Human Regular 1 UNITS .STK-MED ONE 10/05 0019 DC IV 10/05 0020 Insulin Human Regular 0 Q6 10/04 1800 AC 10/05 SC 1300 Lactulose 20 GM BID 10/05 1130 AC PO Lactulose 0 .STK-MED ONE 10/04 1551 DC PO Lactulose 0 .STK-MED ONE 10/04 1549 DC PO Lactulose 1 BOT Q4 10/04 1515 DC 10/05 [place] 0950 Sodium Chloride 1,000 ML .Q2H 10/04 1115 DC 10/04 IV 10/04 1314 1228 Last 24 Hrs of Lab/Unruly Results Last 24 Hrs of Labs/Mics: Laboratory Tests 10/05/17 0753: Anion Gap 14, Estimated GFR 18 L, BUN/Creatinine Ratio 23.8, CBC w Diff NO MAN DIFF REQ, RBC 3.41 L, MCV 101.7 H, MCH 33.2 H, MCHC 32.6 L, RDW 18.0 H, MPV 9.9, Gran % 61.9, Lymphocytes % 19.7 L, Monocytes % 15.6 H, Eosinophils % 2.1, Basophils % 0.7, Absolute Granulocytes 5.2, Absolute Lymphocytes 1.7, Absolute Monocytes 1.3 H, Absolute Eosinophils 0.2, Absolute Basophils 0.1 10/04/17 1950: Lactic Acid 1.8, PT 13.8 H, INR 1.26 H 10/04/17 1540: Lactic Acid Cancelled 10/04/17 1509: Fluid WBC Cancelled, Fld Total RBCs Counted Cancelled 10/04/17 1509: Fluid Albumin Cancelled 10/04/17 1343: Urine Opiates Screen < 100, Methadone Screen 72, Barbiturate Screen < 60, Ur Phencyclidine Scrn < 6.00, Amphetamines Screen < 100, U Benzodiazepines Scrn < 85, Urine Cocaine Screen < 50, Urine Cannabis Screen < 5.00, Urine Color YEL, Urine Clarity HAZY H, Urine pH 6.0, Ur Specific [place] 1.020, Urine Protein NEG, Urine Ketones NEG, Urine Nitrite NEG, Urine Bilirubin NEG@ICTO, Urine Urobilinogen 0.2, Ur Leukocyte Esterase LARGE H, Ur Microscopic SEDIMENT EXAMINED, Urine WBC 25-50 H, Ur Epithelial Cells FEW, Urine Bacteria PACKD H, Hyaline Casts 10-15 H, Urine Hemoglobin NEG, Urine Glucose NEG Microbiology 10/05 1999 BLOOD: Blood Culture - RES 10/04 1949 BLOOD: Blood Culture - RES 10/04 1509 BODY FLUID: Body Fluid Culture - CAN Cancelled: NO SAMPLE COLLECTED. 10/04 1509 BODY FLUID: Gram Stain - CAN Cancelled: NO SAMPLE COLLECTED. 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 She presented to the ED from [facility] for the evaluation of altered mental status. She arrived in the ER afebrile and hemodynamically stable. She was unresponsive however she did open her eyes spontaneously. Labs were obtained and she was found to have an elevated ammonia level. Following this she was promptly referred to the in-patient medical team for further management. At the time of evaluation patient was minimally responsive to verbal commands, appeared drowsy. As per daughter since the discharge the patient was slightly better but never came to her baseline, she was in bed most of the time. About 3 days ago she started having nausea and vomiting and felt sick to the stomach, she didn't have any appetite and did have diarrhea. Patient was mentating okay until this morning when the nurses found her unresponsive, and 911 was called. As per daughter patient was seen by Dr. Bradley last and she was supposed to get diagnostic/therapeutic paracentesis today for worsening ascites. When we evaluated the patient in the ER whe was resting comfortably. She did not follow commands. She had no facial asymetry. Pupils were equal and reactive. She grimaced sligtly on examination of her left leg. Abd was distended not tense and non-tender. Bowel sounds were normal. Pertinent labs on admission showed no evidence of leukocytosis H&H low but stable elevated BUN and creatinine 62/2.8, ammonia level is high at 114, urine toxicology is negative Urinalysis positive for large leukocyte esterase. 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 -Chronic normocytic anemia in the setting of chronic kidney disease -History of hypothyroidism, insulin-dependent diabetes mellitus, hypertension and hyperlipidemia, urinary incontinence, chronic back pain, parkinsonism Plan Altered mental status with hyperammonemia: patient found to have ammonia level of 114. Was put on rectal lactulose but has not been tolerating. * Place NG tube, check place via CXR, administer lactulose tid to titrate to 3 bowel movements per day. NPO. * Neurochecks every 2-3 hrs * Repeat ammonia level tomorrow * GI has been consulted we'll follow the recommendations * Continue gentle hydration with D5 half-normal saline. * Patient is without leukocytosis, afebrile, lactic acid x2 negative, but urine culture growing gram negative rods. Treating with ceftriaxone. Of note we cannot assess patient for symptoms as she is altered. She was reportedly more clear before going down for paracentesis but at the time of signout, she had not returned to the floors to assess. * CT head without contrast to rule out any intracranial bleed/stroke is negative. * Utox negative Ascites secondary to decompensated liver from SORIA: Liver function tests abnormal. Patient with distended abdomen. Had previously had appointment for therapeutic paracentesis with Dr. Bradley around this time. INR 1.26. * GI has been consulted, as per GI recommendations, move forward with diagnostic and therapeutic paracentesis. * Follow up paracentesis labs Acute on chronic kidney injury STAGE 3B/4 likely in the setting of dehydration: baseline Cr for patient is in high 1's. On admission is 2.8. Today 2.6. * Continue gentle hydration with D5 half-normal saline * Repeat BEP tomorrow * Avoid any nephrotoxic agents. Chronic normocytic anemia in the setting of chronic kidney disease: Patient is at baseline Hb level. * Monitor H&H, watch for any active signs of bleed. History of hypothyroidism * Continue levothyroxine PO through NG tube History of insulin-dependent diabetes mellitus * Nothing by mouth insulin sliding scale with D5 half normal saline normal saline. DVT prophylaxis with subcutaneous heparin Patient is DNR/DNI(CODE STATUS confirmed with the daughters and the ) NPO (HAS NG tube) Problem List: 1. Weakness 2. Altered mental status 3. Increased ammonia level 4. Urinary tract infection Pain Ratin Pain Location: na Pain Goal: Remain pain free Pain Plan: na Tomorrow's Labs & Rationales: gayle Dick MD,Francisca 10/05/17 1216: Attending MD Review Statement Attending Statement Attending MD Statement: examined this patient, discuss w/resident/PA/TEACHER PRIVATE, agreed w/resident/PA/TEACHER PRIVATE, reviewed EMR data (avail), discussed with nursing, discussed with case mgmt, amended to note Attending Assessment/Plan: Patient seen and examined. This morning she remains minimally responsive. Nursing staff reports that she will open her eyes occasionally. During rounds today she did open her eyes briefly but then promptly closes them back. She would groan in response to some questioning. Nursing staff attempted to give lactulose rectally however patient was unable to retain this. She is afebrile. She is hemodynamically stable. On examination the abdomen is not tense. No evidence of tenderness. Problems: 1. Altered mental status; likely secondary to hepatic encephalopathy. 2. Recurrent ascites 3. Hypothyroidism 4. Chronic kidney stage IV 5. Urinary tract infection. Plan: -Please NG tube and administer lactulose 3 times a day until patient is achieving 3 bowel movements daily. -Obtain paracentesis today. Send specimens for cell count, Gram stain and culture to rule out SBP. -Patient is growing gram-negative rods in urine. Continue antibiotic therapy with ceftriaxone. -Administer Synthroid and her other home regimen via the NG tube. with ceftriaxone. -Administer Synthroid and her other home regimen via the NG tube. 5. Urinary tract infection. Plan: -Please NG tube and administer lactulose 3 times a day until patient is achieving 3 bowel movements daily. -Obtain paracentesis today. Send specimens for cell count, Gram stain and culture to rule out SBP. -Patient is growing gram-negative rods in urine. Continue antibiotic therapy with ceftriaxone. -Administer Synthroid and her other home regimen via the NG tube.
[2017-10-05 08:34] LABS: ABSOLUTE BASOPHIL COUNT 0.1 /CUMM (0.0-0.2); ABSOLUTE EOSINOPHIL COUNT 0.2 /CUMM (0.0-0.7); ABSOLUTE GRANULOCYTE CT 5.2 /CUMM (1.4-6.5); ABSOLUTE LYMPH COUNT 1.7 /CUMM (1.2-3.4); ABSOLUTE MONOCYTE COUNT 1.3 /CUMM (0.10-0.60); BASOPHIL % 0.7 % (0.0-2.0); EOSINOPHIL % 2.1 % (0-5); GRANULOCYTE % 61.9 % (42.2-75.2); HEMATOCRIT 34.7 % (37-47); MEAN CORPUSCULAR HGB 33.2 PG (27.0-31.0); MEAN CORPUSCULAR HGB CONC 32.6 G/DL (33.0-37.0); MEAN CORPUSCULAR VOLUME 101.7 FL (81.0-99.0); MEAN PLATELET VOLUME 9.9 FL (7.4-10.4); PLATELET COUNT 151 /CUMM (130-400); RED BLOOD CELL CT 3.41 /CUMM (4.20-5.40); WHITE BLOOD CELL COUNT 8.4 /CUMM (4.8-10.8)
[2017-10-05 11:15] VITALS: BP 138/98
--- NOTE | 2017-10-05 13:01 | RADIOLOGY REPORT ---
EXAMINATION: XR PORTABLE CHEST CLINICAL INFORMATION: Status post-post nasogastric tube placement. COMPARISON: Prior chest radiograph dated 09/25/2017. TECHNIQUE: Portable frontal view of the lower chest and upper abdomen was obtained. FINDINGS: There is elevation of the right hemidiaphragm. The lung bases appear clear. A nasogastric tube is faintly seen, with distal tip coiled within the gastric body. No free intraperitoneal air is seen. IMPRESSION: A nasogastric tube is faintly seen, with distal tip coiled within the gastric body.
[2017-10-05 13:56] VITALS: BP 142/88
--- NOTE | 2017-10-05 15:01 | Cons- Gastroenterology ---
General Information and HPI Consulting Request Date of Consult: 10/05/17 Requested By: Francisca Dick MD Reason for Consult: Hepatic encephalopathy History of Present Illness: Patient obtunded and cannot give a history. Allergies/Medications Allergies: Coded Allergies: Opioids - Morphine Analogues (ITCH, GI UPSET 08/03/16) Opioids-Meperidine and Related (ITCH, GI UPSET 08/03/16) Opioids-Methadone and Related (ITCH, GI UPSET 08/03/16) codeine (GI UPSET 08/03/16) morphine (ITCHING, GI UPSET 08/03/16) Home Med List: Allopurinol (Zyloprim) 100 MG TABLET 1 TAB PO DAILY GOUT (Reported) Amlodipine Besylate 10 MG TABLET 1 TAB PO DAILY BP (Reported) Carbidopa/Levodopa (Sinemet 25-100 MG Tablet) 25 MG-100 MG TABLET 1 TAB PO TID GAIT/TREMOR INSTABILITY (Reported) Cyanocobalamin (Vitamin B-12) 1,000 MCG TABLET 1 TAB PO DAILY SUPPLEMENT ( Reported) Duloxetine HCl (Cymbalta) 60 MG CAPSULE.DR 1 CAP PO [facility] (Reported) Fentanyl (Duragesic) 12 MCG/HOUR PATCH.TD72 1 PAT TOP Q3D CHRONIC BACK PAIN . Furosemide 40 MG TABLET 1 TAB PO Wednesday DIURETIC (Reported) Insulin Aspart (Novolog) 100 UNIT/ML VIAL 0 UNITS SC TIDAC DM SUGARS SS 80-150 0 UNITS 151-200 2 UNITS 201-250 3 UNITS 251-300 4 UNITS 301-350 5 UNITS 351-400 6 UNITS >400 7 UNITS CALL UR DOCTOR Insulin Detemir (Levemir) 100 UNIT/ML VIAL 6 UNIT SC DAILY DM Levothyroxine Sodium (Synthroid) 175 MCG TABLET 1 TAB PO DAILY HYPOTHYROID . Lidocaine (Lidoderm) 5 % ADH..PATCH 1 PAT TOP DAILY CHRONIC BACK PAIN .may wear up to 12 hours Lovastatin 20 MG TABLET 1 TAB PO DAILY CHOLESTEROL (Reported) Magnesium Oxide (Magnesium) 500 MG CAPSULE 1 CAP PO DAILY SUPPLEMENT ( Reported) Mirabegron (Myrbetriq) 50 MG TAB.ER.24H 1 TAB PO DAILY BLADDER (Reported) Nadolol 20 MG TABLET 1 TAB PO DAILY BP (Reported) Omeprazole 40 MG CAPSULE.DR 1 CAP PO DAILY GI (Reported) Ondansetron HCl (Zofran) 4 MG TABLET 1 TAB PO Q8P PRN NAUSEA/VOMITING ( Reported) Spironolactone 25 MG TABLET 1 TAB PO DAILY DIURETIC (Reported) Current Medications: Current Medications Sig/Jennifer Start time Last Medication Dose Route Stop Time Status Admin Allopurinol 100 MG DAILY 10/06 899 UNVr PO Amlodipine Besylate 10 MG DAILY 10/06 899 UNVr PO Atorvastatin Calcium 5 MG 1700 10/05 1700 UNVr PO Carbidopa/Levodopa 1 TAB TID 10/05 1431 UNVr PO Ceftriaxone Sodium 1,000 MG DAILY@2215 10/05 2215 AC IV Ceftriaxone Sodium 0 .STK-MED ONE 10/04 1830 DC .ROUTE Ceftriaxone Sodium 1,000 MG DAILY 10/04 1630 DC 10/04 IV 2214 Dextrose/Sodium 1,000 ML Q13H 10/04 1530 AC 10/05 Chloride IV 0443 Duloxetine HCl 60 MG SAT 10/07 0900 UNVr PO Furosemide 40 MG 10/06 09 UNVr PO Heparin Sodium 5,000 UNIT Q8 10/05 0600 AC 10/05 (Porcine) SC 1301 Insulin Human Regular 1 UNITS .STK-MED ONE 10/05 0635 DC IV 10/05 0636 Insulin Human Regular 1 UNITS .STK-MED ONE 10/05 0019 DC IV 10/05 0020 Insulin Human Regular 0 Q6 10/04 1800 AC 10/05 SC 1300 Lactulose 20 GM TID 10/05 1400 AC 10/05 PO 1339 Lactulose 20 GM BID 10/05 1130 DC PO Lactulose 0 .STK-MED ONE 10/04 1551 DC PO Lactulose 0 .STK-MED ONE 10/04 1549 DC PO Lactulose 1 BOT Q4 10/04 1515 DC 10/05 DC 0950 Levothyroxine Sodium 0.175 MG DAILY 10/05 1431 UNVr PO Nadolol 20 MG DAILY 10/06 899 UNVr PO Non-Formulary 0 SEE ADMIN CRITERIA 10/05 1430 UNVr Medication ANY Omeprazole 40 MG DAILY AC 10/06 699 UNVr PO Spironolactone 25 MG DAILY 10/06 899 UNVr PO Past History Travel History Traveled to [place] past 21 day No Medical History Blood Transfusion Hx: Yes Neurological: migraine, peripheral neuropathy EENT: NONE Cardiovascular: hypertension, hyperlipidemia Respiratory: NONE Gastrointestinal: GERD, portal hypertension, gastropathy varices Hepatic: cirrhosis Renal: urinary incontinence, KIDNEY FAILURE Musculoskeletal: gout, restless leg syndrome Psychiatric: depression Endocrine: diabetes, hypothyroidism Blood Disorders: thrombocytopenia Cancer(s): NONE [employer]/Reproductive: NONE Other Medical Hx: Urinary incontinence Surgical History Surgical History: appendectomy, cholecystectomy, hysterectomy, BILAT KNEE REPLACEMENTS Family History Relations & Conditions If Any: FATHER (Had a history of brain aneurysm and of stroke at the age of 73). MOTHER (Mother at the age of 26 years, unknown cause). Psychosocial History Where Do You Live? Acute Rehab Who Do You Live With? spouse Services at Home: None Primary Language: Thai Smoking Status: Never Smoked Living Will? no Functional Ability ADLs Independent: dressing, eating, toileting, bathing. Ambulation: walker IADLs Independent: shopping, housework, finances, food prep, telephone, medication admin. Needs Assist: transportation. Exam & Diagnostic Data Vital Signs and I&O Vital Signs Date Time Temp Pulse Resp B/P B/P Pulse O2 O2 Flow FiO2 Mean Ox Delivery Rate 10/05 1356 97.8 72 18 142/88 94 Room Air 10/05 1115 138/98 10/05 0651 97.6 79 20 146/108 100 Room Air 10/05 0000 94 Room Air 10/04 2308 98.4 78 18 142/69 94 Room Air 10/04 1900 98.1 77 18 170/98 94 Room Air 10/04 1607 98.7 81 18 163/84 97 Room Air Intake & Output 10/05 1600 10/05 0400 10/04 1600 10/04 0400 10/03 1600 10/03 0400 Intake Total 1260 475 0 Output Total 280 150 Balance 980 325 0 Intake, IV 1200 475 Intake, Oral 0 0 Intake, Other 60 Number 2 1 Bowel Movements Output, Urine 280 150 Patient 213 lb 214 lb Weight Weight Bed scale Estimated Measurement Method Physical Exam: Patient is obtunded, slightly arousable. Large ecchymoses on mid chest. No jaundice, stigmata of chronic liver disease, rash or skin lesion. No adenopathy. Sclera anicteric. No oropharyngeal lesion. Tongue dry. Abdomen distended/non-tense; normal bowel sounds; no palpable mass or organomegaly. Extremities with 1+ edema. Results Pertinent Lab Results: Laboratory Tests 10/05 10/05 10/05 1440 1440 1251 Other Body Source Fluid WBC Pending Fld Total RBCs Counted Pending Fluid Glucose Pending Fluid Total Protein Pending Cancelled Fluid Albumin Pending Fluid LDH Pending Fluid Amylase Pending 10/05 10/04 10/04 0753 1950 1540 Chemistry Sodium (137 - 145 mmol/L) 142 Potassium (3.5 - 5.1 mmol/L) 4.4 Chloride (98 - 107 mmol/L) 107 Carbon Dioxide (22 - 30 mmol/L) 20 L Anion Gap (5 - 16) 14 BUN (7 - 17 mg/dL) 62 H Creatinine (0.5 - 1.0 mg/dL) 2.6 H Estimated GFR (>60 ml/min) 18 L BUN/Creatinine Ratio (7 - 25 %) 23.8 Lactic Acid (0.7 - 2.1 mmol/L) 1.8 Cancelled Coagulation PT (9.4 - 12.5 SEC) 13.8 H INR (0.90 - 1.19) 1.26 H Hematology CBC w Diff NO MAN DIFF REQ WBC (4.8 - 10.8 /CUMM) 8.4 RBC (4.20 - 5.40 /CUMM) 3.41 L Hgb (12.0 - 16.0 G/DL) 11.3 L Hct (37 - 47 %) 34.7 L MCV (81.0 - 99.0 FL) 101.7 H MCH (27.0 - 31.0 PG) 33.2 H MCHC (33.0 - 37.0 G/DL) 32.6 L RDW (11.5 - 14.5 %) 18.0 H Plt Count (130 - 400 /CUMM) 151 MPV (7.4 - 10.4 FL) 9.9 Gran % (42.2 - 75.2 %) 61.9 Lymphocytes % (20.5 - 51.1 %) 19.7 L Monocytes % (1.7 - 9.3 %) 15.6 H Eosinophils % (0 - 5 %) 2.1 Basophils % (0.0 - 2.0 %) 0.7 Absolute Granulocytes (1.4 - 6.5 /CUMM) 5.2 Absolute Lymphocytes (1.2 - 3.4 /CUMM) 1.7 Absolute Monocytes (0.10 - 0.60 /CUMM) 1.3 H Absolute Eosinophils (0.0 - 0.7 /CUMM) 0.2 Absolute Basophils (0.0 - 0.2 /CUMM) 0.1 10/04 10/04 1509 1509 Other Body Source Fluid WBC Cancelled Fld Total RBCs Counted Cancelled Fluid Albumin Cancelled 10/04 10/04 1343 1250 Chemistry Sodium (137 - 145 mmol/L) 141 Potassium (3.5 - 5.1 mmol/L) 4.7 Chloride (98 - 107 mmol/L) 105 Carbon Dioxide (22 - 30 mmol/L) 23 Anion Gap (5 - 16) 13 BUN (7 - 17 mg/dL) 62 H Creatinine (0.5 - 1.0 mg/dL) 2.8 H Estimated GFR (>60 ml/min) 16 L BUN/Creatinine Ratio (7 - 25 %) 22.1 Glucose (65 - 99 mg/dL) 115 H Lactic Acid (0.7 - 2.1 mmol/L) 1.8 Calcium (8.4 - 10.2 mg/dL) 10.7 H Total Bilirubin (0.2 - 1.3 mg/dL) 1.4 H AST (14 - 36 U/L) 28 ALT (9 - 52 U/L) 21 Alkaline Phosphatase (<127 U/L) 142 H Ammonia (9 - 30 umol/L) 114 H Total Protein (6.3 - 8.2 g/dL) 6.8 Albumin (3.5 - 5.0 g/dL) 3.5 Globulin (1.9 - 4.2 gm/dL) 3.3 Albumin/Globulin Ratio (1.1 - 2.2 %) 1.1 Coagulation PT (9.4 - 12.5 SEC) 13.2 H INR (0.90 - 1.19) 1.21 H Hematology CBC w Diff NO MAN DIFF REQ WBC (4.8 - 10.8 /CUMM) 6.9 RBC (4.20 - 5.40 /CUMM) 3.54 L Hgb (12.0 - 16.0 G/DL) 11.8 L Hct (37 - 47 %) 35.3 L MCV (81.0 - 99.0 FL) 99.7 H MCH (27.0 - 31.0 PG) 33.5 H MCHC (33.0 - 37.0 G/DL) 33.5 RDW (11.5 - 14.5 %) 18.2 H Plt Count (130 - 400 /CUMM) 144 MPV (7.4 - 10.4 FL) 9.1 Gran % (42.2 - 75.2 %) 65.9 Lymphocytes % (20.5 - 51.1 %) 18.4 L Monocytes % (1.7 - 9.3 %) 13.9 H Eosinophils % (0 - 5 %) 1.5 Basophils % (0.0 - 2.0 %) 0.3 Absolute Granulocytes (1.4 - 6.5 /CUMM) 4.6 Absolute Lymphocytes (1.2 - 3.4 /CUMM) 1.3 Absolute Monocytes (0.10 - 0.60 /CUMM) 1.0 H Absolute Eosinophils (0.0 - 0.7 /CUMM) 0.1 Absolute Basophils (0.0 - 0.2 /CUMM) 0 Toxicology Urine Opiates Screen (>2000 NG/ML) < 100 Methadone Screen (>300 NG/ML) 72 Barbiturate Screen (>200 NG/ML) < 60 Ur Phencyclidine Scrn (>25 NG/ML) < 6.00 Amphetamines Screen (>1000 NG/ML) < 100 U Benzodiazepines Scrn (>200 NG/ML) < 85 Urine Cocaine Screen (>300 NG/ML) < 50 Urine Cannabis Screen (>50 NG/ML) < 5.00 Urines Urine Color (YEL,AMB,STR) YEL Urine Clarity (CLEAR) HAZY H Urine pH (5.0 - 8.0) 6.0 Ur Specific [place] (1.001 - 1.035) 1.020 Urine Protein (NEG,<30 MG/DL) NEG Urine Ketones (NEG) NEG Urine Nitrite (NEG) NEG Urine Bilirubin (NEG) NEG@ICTO Urine Urobilinogen (0.1 - 1.0 EU/dl) 0.2 Ur Leukocyte Esterase (NEG) LARGE H Ur Microscopic SEDIMENT EXAMINED Urine WBC (0 - 2 /HPF) 25-50 H Ur Epithelial Cells (NONE,FEW) FEW Urine Bacteria (NEG/NONE) PACKD H Hyaline Casts (0/LPF) 10-15 H Urine Hemoglobin (NEG) NEG Urine Glucose (N MG/DL) NEG Assessment/Plan Assessment/Recommendations: Cirrhosis secondary to SORIA. Ascites, with diuretic management limited by chronic kidney disease. The patient presents with evidence of encephalopathy, likely secondary to urinary tract infection. Rule out SBP. Possible contribution of dehydration/ decreased GFR. No evidence of GI bleed. Recommendations * Treatment of UTI * Diagnostic paracentesis * Gentle rehydration * Agree with lactulose Consult Acknowledgment - Thank you for your consult request.
--- NOTE | 2017-10-05 16:12 | ULTRASOUND REPORT ---
EXAMINATION: PARACENTESIS CLINICAL INFORMATION: Ascites COMPARISON: Paracentesis 09/23/2017 TECHNIQUE: Indirect ultrasound guidance using a 6 [place] [id number]-P-Dmenieqt closed needle/catheter system FINDINGS: Informed consent was obtained from the patient's family prior to the procedure. During this process, the procedure alternatives were explained, along with the intended outcome and benefits. The risks of the procedure, as well as the risk of not doing the procedure, was discussed. The patient and her family were given the opportunity to ask questions regarding the procedure. A signed consent form which documents this discussion was placed in the medical record. Ultrasound evaluation of the abdomen for ascites was performed. Moderate to large amount of ascites is noted in the right lower quadrant. The site was marked. A timeout procedure was performed. The area was prepped and draped in usual sterile fashion. Using standard interventional and sterile techniques, lidocaine was used to anesthetize the region. A 6 [place] [id number]-I-Wuiyjdgg closed needle/catheter system was introduced into the right lower quadrant using standard safety needle technique. Approximately 6.2 L of light yellow fluid was removed into the Vacutainer bottles. The catheter was then removed. Good hemostasis was achieved. The patient demonstrated immediate symptomatic relief. The patient tolerated the procedure well. Dermabond was placed. The patient was discharged from the department in stable condition. COMPLICATIONS: None. IMPRESSION: Successful ultrasound-guided paracentesis yielding 6.2 L of fluid.
--- NOTE | 2017-10-05 18:01 | RADIOLOGY REPORT ---
EXAMINATION: XR PORTABLE CHEST CLINICAL INFORMATION: Confirm placement of NG tube. COMPARISON: Prior x-ray of the chest 10/05/2017 11:54 AM. TECHNIQUE: Portable frontal view of the chest was obtained. FINDINGS: A nasogastric tube is in place with the distal portion of the tube distal to the expected level of the EG junction overlying the region of the stomach However the tip of the tube is outside the [id number] the examination The lungs are clear. There is calcification of the dorsal aorta. The cardiac silhouette is normal. Pulmonary vascularity normal. IMPRESSION: NG tube tip is outside the [id number] the exam. However the distal portion of the NG tube overlies the region of the stomach
[2017-10-05 23:11] VITALS: BP 119/72
[2017-10-06 07:18] VITALS: BP 109/76
--- NOTE | 2017-10-06 07:37 | PN- Housestaff ---
Guilherme PEREZ,Latasha 10/06/17 0737: Subjective Follow-up For: Altered mental status most likely related to hepatic encephalopaty/UTI/JOHN Leg pain and tenderness JOHN Active UA Chronic medical condition Subjective: Patient is much less somnolent and confused today. She is alert and oriented 2. She denies any chest pain or abdominal pain. She states that her breathing is "okay". Patient's family is by her bedside on interview. He shouldn't has NG tube is still placed as of this morning. She went for paracentesis yesterday with about 6.2 L of fluid moved from her abdomen. Review of Systems Constitutional: Reports: weakness. EENTM: Reports: no symptoms. Cardiovascular: Reports: no symptoms. Respiratory: Reports: no symptoms. Gastrointestinal: Reports: no symptoms. Musculoskeletal: Reports: no symptoms. Skin: Reports: no symptoms. Neurological/Psychological: Reports: cognitive dysfunction. Hematologic/Endocrine: Reports: no symptoms. Objective Last 24 Hrs of Vital Signs/I&O Vital Signs Date Time Temp Pulse Resp B/P B/P Pulse O2 O2 Flow FiO2 Mean Ox Delivery Rate 10/06 1557 Nasal Room Air Cannula 10/06 1536 Nasal Room Air Cannula 10/06 1422 98.2 71 18 122/70 94 Nasal Cannula 10/06 1234 78 124/62 10/06 1007 78 124/62 10/06 0800 95 Room Air 10/06 0718 98.1 74 20 109/76 98 Room Air 10/05 2311 98.5 76 20 119/72 95 Room Air Intake & Output 10/06 1600 10/06 0800 10/06 0000 Intake Total 800 1200 500 Output Total 250 150 250 Balance 550 1050 250 Intake, IV 300 1000 300 Intake, Oral 500 Intake, Other 200 200 Output, Urine 250 150 250 Physical Exam General Appearance: Alert, Cooperative, No Acute Distress Skin: No Rashes, No Breakdown, No Significant Lesion Skin Temp/Moisture Exam: Warm/Dry HEENT: Atraumatic, PERRLA, EOMI Neck: Supple, No JVD Cardiovascular: Regular Rate, Normal S1, Normal S2, No Murmurs Lungs: Clear to Auscultation, Normal Air Movement Abdomen: Normal Bowel Sounds, Soft, tenderness on deep palpation, continued distension Neurological: Normal Speech Extremities: No Clubbing, No Cyanosis Current Medications: Current Medications Sig/Ejnnifer Start time Last Medication Dose Route Stop Time Status Admin Allopurinol 100 MG DAILY 10/06 0800 AC 10/06 PO 1008 Amlodipine Besylate 10 MG DAILY 10/06 0800 AC 10/06 PO 1007 Amoxicillin/ 875 MG Q12 10/06 1425 DC Clavulanate Potassium PO Atorvastatin Calcium 5 MG 1700 10/05 1700 AC 10/05 PO 1903 Carbidopa/Levodopa 1 TAB TID 10/05 1431 AC 10/06 PO 1336 Ceftriaxone Sodium 1,000 MG DAILY@2215 10/05 2215 NC 10/06 IV 0036 Dextrose/Sodium 1,000 ML Q13H 10/04 1530 DC 10/06 Chloride IV 0924 Duloxetine HCl 60 MG SAT 10/07 09 AC PO Furosemide 40 MG 10/06 09 AC PO Heparin Sodium 5,000 UNIT Q8 10/05 06 AC 10/06 (Porcine) SC 1336 Insulin Human Regular 2 UNITS .STK-MED ONE 10/06 0549 DC IV 10/06 0550 Insulin Human Regular 2 UNITS .STK-MED ONE 10/05 2352 DC IV 10/05 2353 Insulin Human Regular 4 UNITS .STK-MED ONE 10/05 1859 DC IV 10/05 1900 Insulin Human Regular 0 Q6 10/04 1800 AC 10/06 SC 1234 Lactulose 20 GM TID 10/05 1400 AC 10/06 PO 1336 Levothyroxine Sodium 0.175 MG DAILY AC 10/05 1431 AC 10/06 PO 0557 Mirabegron 50 MG DAILY 10/06 899 AC 10/06 PO 1007 Nadolol 20 MG DAILY 10/06 899 AC 10/06 PO 1234 Omeprazole 40 MG DAILY AC 10/06 0700 AC 10/06 PO 0557 Ondansetron HCl 4 MG ONCE ONE 10/06 1730 UNVr PO 10/06 1731 Patient Medication 1 ED ONE ONE 10/06 1230 DC Teaching ED 10/06 1231 Spironolactone 25 MG DAILY 10/06 899 AC PO Last 24 Hrs of Lab/Unruly Results Last 24 Hrs of Labs/Mics: Laboratory Tests 10/06/17 0745: Anion Gap 10, Estimated GFR 21 L, BUN/Creatinine Ratio 24.5 10/06/17 0030: Ammonia 18 Assessment/Plan Assessment: Patient is a 81-year-old woman with past medical history significant for hypertension and hyperlipidemia, coronary artery disease, 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 She presented to the ED from [facility] for the evaluation of altered mental status. She arrived in the ER afebrile and hemodynamically stable. She was unresponsive however she did open her eyes spontaneously. Labs were obtained and she was found to have an elevated ammonia level. Following this she was promptly referred to the in-patient medical team for further management. At the time of evaluation patient was minimally responsive to verbal commands, appeared drowsy. As per daughter since the discharge the patient was slightly better but never came to her baseline, she was in bed most of the time. About 3 days ago she started having nausea and vomiting and felt sick to the stomach, she didn't have any appetite and did have diarrhea. Patient was mentating okay until this morning when the nurses found her unresponsive, and 911 was called. As per daughter patient was seen by Dr. Bradley last and she was supposed to get diagnostic/therapeutic paracentesis today for worsening ascites. When we evaluated the patient in the ER whe was resting comfortably. She did not follow commands. She had no facial asymetry. Pupils were equal and reactive. She grimaced sligtly on examination of her left leg. Abd was distended not tense and non-tender. Bowel sounds were normal. Pertinent labs on admission showed no evidence of leukocytosis H&H low but stable elevated BUN and creatinine 62/2.8, ammonia level is high at 114, urine toxicology is negative Urinalysis positive for large leukocyte esterase. 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 -Chronic normocytic anemia in the setting of chronic kidney disease -History of hypothyroidism, insulin-dependent diabetes mellitus, hypertension and hyperlipidemia, urinary incontinence, chronic back pain, parkinsonism Plan Altered mental status with hyperammonemia: patient found to have ammonia level of 114. Was put on rectal lactulose but has not been tolerating. Ammonia level today 18. Patient cognition is better today but still lethargic and mildly confused. * Patient was less confused today, we removed NG tube and started the patient on fluids by mouth. We stopped IV fluids as well. The patient is tolerating medications by mouth as well including her lactulose 3 times a day. * Neurochecks every 2-3 hrs * Repeat ammonia level tomorrow * GI has been consulted we'll follow the recommendations * Continue gentle hydration with D5 half-normal saline. * Patient is without leukocytosis, afebrile, lactic acid x2 negative, but urine culture growing gram negative rods, today showed to be Escherichia coli. We treated the patient with ceftriaxone and then switched her to Augmentin but after talking with Eric Smith MD we decided to stop the antibiotics. We had not been able to assess her for symptoms that she was altered and today she notes that she has no dysuria. * CT head without contrast to rule out any intracranial bleed/stroke is negative. * Utox negative Ascites secondary to decompensated liver from SORIA: Liver function tests abnormal. Patient with distended abdomen. Had previously had appointment for therapeutic paracentesis with Dr. Bradley around this time. INR 1.26. * GI has been consulted, as per GI recommendations, patient had paracentesis done yesterday with return of 6.2 L of transudative fluid. WBC level of fluid 250, patient continues to be afebrile with normal blood WBC count. * Paracentesis labs show a transudate is fluid most likely from portal hypertension as SAAG is greater than 1.1. * As per patient's family and Dr. Bradley, patient was to hold spironolactone and Lasix as it was not helping her kidney function or the buildup of fluid. Dr. Bradley stated that any new recommendations from Dr. Salmeron, who is actively following the patient while she is in the hospital, are to be followed. Of note , patient's blood pressure is low normal at 109/76 today. * Patient will continue when she leaves here with taps every 1-2 weeks. Acute on chronic kidney injury STAGE 3B/4 likely in the setting of dehydration: baseline Cr for patient is in high 1's. On admission is 2.8. Today 2.6. * Fluids have been stopped and we will also stop Byrne today. Patient has had urine output 250 mL in 4 hours. Continue to monitor. * Repeat BEP tomorrow * Avoid any nephrotoxic agents. Chronic normocytic anemia in the setting of chronic kidney disease: Patient is at baseline Hb level. * Monitor H&H, watch for any active signs of bleed. History of hypothyroidism * Continue levothyroxine PO History of insulin-dependent diabetes mellitus * Nothing by mouth insulin sliding scale with D5 half normal saline normal saline. Disposition planning * Physical therapy DVT prophylaxis with subcutaneous heparin Patient is DNR/DNI(CODE STATUS confirmed with the daughters and the ) NPO (HAS NG tube) Problem List: 1. Weakness 2. Altered mental status 3. Increased ammonia level Pain Ratin Pain Location: na Pain Goal: Remain pain free Pain Plan: na Tomorrow's Labs & Rationales: cbc bep Francisca Dick MD 10/06/17 1345: Attending MD Review Statement Attending Statement Attending MD Statement: examined this patient, discuss w/resident/PA/[employer], agreed w/resident/PA/[employer], reviewed EMR data (avail), discussed with nursing, discussed with case mgmt, amended to note Attending Assessment/Plan: Patient seen and examined. Family present at the bedside. She is more awake today although lethargic. She is oriented 3. She is answering questions appropriately. Mentation improved significantly after lactulose was initiated via the NG tube. Paracentesis was done yesterday and about 6 L of fluid was removed. Fluid analysis is not suggestive of spontaneous bacterial peritonitis. Nursing staff reports decreased urinary output. Renal function however has improved slightly compared to presentation. Recommendations: -Patient is currently growing E. coli in the urine. Transition to Augmentin. Complete a total of 5 days of antibiotic therapy including intravenous antibiotics. -Discontinue NG tube and encourage oral intake. -Discontinue Byrne catheter. -Nephrology consultation. She does have advanced renal disease. -Mobilize patient as tolerated. -Anticipate discharge tomorrow. Disposition will be dependent on recommendations of
[2017-10-06 14:22] VITALS: BP 122/70
--- NOTE | 2017-10-06 19:36 | PN- Gastroenterology ---
Assessment/Plan GI Assessment/Recommendations: * Cirrhosis secondary to SORIA. * Ascites, with diuretic management limited by chronic kidney disease. On low- dose furosemide and spironolactone. Status post 6 L paracentesis; did not receive albumin. * Hepatic encephalopathy, with exacerbation likely secondary to urinary tract infection (culture growing Escherichia coli). Possible contribution of dehydration/decreased GFR. No evidence of GI bleed. No SBP. Recommendations * Continue treatment of UTI with appropriate antibiotics (organism is sensitive to all) * Salt poor albumin, 50 g IV * Agree with lactulose; titrate to 2-3 soft bowel movements per day Subjective Subjective: Much more awake, alert, and conversant. Oriented. Denies nausea, vomiting, pain Objective Vital Signs and I&Os Vital Signs Date Time Temp Pulse Resp B/P B/P Pulse O2 O2 Flow FiO2 Mean Ox Delivery Rate 10/06 1557 Nasal Room Air Cannula 10/06 1536 Nasal Room Air Cannula 10/06 1422 98.2 71 18 122/70 94 Nasal Cannula 10/06 1234 78 124/62 10/06 1007 78 124/62 10/06 0800 95 Room Air 10/06 0718 98.1 74 20 109/76 98 Room Air 10/05 2311 98.5 76 20 119/72 95 Room Air Intake & Output 10/06 1600 10/06 0400 10/05 1600 10/05 0400 10/04 1600 10/04 0400 Intake Total 2000 500 1260 475 0 Output Total 400 250 280 150 Balance 1600 250 980 325 0 Intake, IV 2163 196 7953 475 Intake, Oral 500 0 0 Intake, Other 200 200 60 Number 3 1 Bowel Movements Output, Urine 400 250 280 150 Patient 213 lb 214 lb Weight Weight Bed scale Estimated Measurement Method Physical Exam: Alert and oriented. Sclera anicteric. Abdomen distended. Extremities without edema. Current Medications: Current Medications Sig/Jennifer Start time Last Medication Dose Route Stop Time Status Admin Allopurinol 100 MG DAILY 10/06 899 AC 10/06 PO 1008 Amlodipine Besylate 10 MG DAILY 10/06 899 AC 10/06 PO 1007 Amoxicillin/ 875 MG Q12 10/06 1425 DC Clavulanate Potassium PO Atorvastatin Calcium 5 MG 1700 10/05 1700 AC 10/06 PO 1753 Carbidopa/Levodopa 1 TAB TID 10/05 1431 AC 10/06 PO 1336 Ceftriaxone Sodium 1,000 MG DAILY@2215 10/05 2215 DC 10/06 IV 0036 Dextrose/Sodium 1,000 ML Q13H 10/04 1530 DC 10/06 Chloride IV 0924 Duloxetine HCl 60 MG SAT 10/07 899 AC PO Furosemide 40 MG 10/06 09 AC PO Heparin Sodium 5,000 UNIT Q8 10/05 0600 AC 10/06 (Porcine) SC 1336 Insulin Human Regular 2 UNITS .STK-MED ONE 10/06 0549 DC IV 10/06 0550 Insulin Human Regular 2 UNITS .STK-MED ONE 10/05 2352 DC IV 10/05 2353 Insulin Human Regular 0 Q6 10/04 1800 AC 10/06 SC 1753 Lactulose 20 GM TID 10/05 1400 AC 10/06 PO 1336 Levothyroxine Sodium 0.175 MG DAILY AC 10/05 1431 AC 10/06 PO 0557 Mirabegron 50 MG DAILY 10/06 899 AC 10/06 PO 1007 Nadolol 20 MG DAILY 10/06 899 AC 10/06 PO 1234 Omeprazole 40 MG DAILY AC 10/06 0700 AC 10/06 PO 0557 Ondansetron HCl 4 MG ONCE ONE 10/06 1730 DC 10/06 PO 10/06 1731 1730 Patient Medication 1 ED ONE ONE 10/06 1230 ID 10/06 Teaching ED 10/06 1231 1758 Spironolactone 25 MG DAILY 10/06 899 AC PO Results Pertinent Lab Results: Laboratory Tests 10/06 10/06 10/05 10/05 10/05 0745 0030 1440 1440 1251 Chemistry Sodium (137 - 145 mmol/L) 139 Potassium (3.5 - 5.1 mmol/L) 3.7 Chloride (98 - 107 mmol/L) 109 H Carbon Dioxide (22 - 30 mmol/L) 20 L Anion Gap (5 - 16) 10 BUN (7 - 17 mg/dL) 54 H Creatinine (0.5 - 1.0 mg/dL) 2.2 H Estimated GFR (>60 ml/min) 21 L BUN/Creatinine Ratio (7 - 25 %) 24.5 Ammonia (9 - 30 umol/L) 18 Hematology Lymphocytes (%) 19 % Normal PMNs (%) 14 Misc Hematology Test (%) 67 Other Body Source Fluid WBC (0 - 5 /CUMM) 205 H Fld Total RBCs Counted (0 /CUMM) 347 H Fluid Glucose (mg/dL) 139 Fluid Total Protein (g/dL) < 2.0 Cancelled Fluid Albumin (g/dL) < 1.0 Fluid LDH (U/L) 158 Fluid Amylase (U/L) < 30 10/05 10/04 10/04 0753 1950 1540 Chemistry Sodium (137 - 145 mmol/L) 142 Potassium (3.5 - 5.1 mmol/L) 4.4 Chloride (98 - 107 mmol/L) 107 Carbon Dioxide (22 - 30 mmol/L) 20 L Anion Gap (5 - 16) 14 BUN (7 - 17 mg/dL) 62 H Creatinine (0.5 - 1.0 mg/dL) 2.6 H Estimated GFR (>60 ml/min) 18 L BUN/Creatinine Ratio (7 - 25 %) 23.8 Lactic Acid (0.7 - 2.1 mmol/L) 1.8 Cancelled Coagulation PT (9.4 - 12.5 SEC) 13.8 H INR (0.90 - 1.19) 1.26 H Hematology CBC w Diff NO MAN DIFF REQ WBC (4.8 - 10.8 /CUMM) 8.4 RBC (4.20 - 5.40 /CUMM) 3.41 L Hgb (12.0 - 16.0 G/DL) 11.3 L Hct (37 - 47 %) 34.7 L MCV (81.0 - 99.0 FL) 101.7 H MCH (27.0 - 31.0 PG) 33.2 H MCHC (33.0 - 37.0 G/DL) 32.6 L RDW (11.5 - 14.5 %) 18.0 H Plt Count (130 - 400 /CUMM) 151 MPV (7.4 - 10.4 FL) 9.9 Gran % (42.2 - 75.2 %) 61.9 Lymphocytes % (20.5 - 51.1 %) 19.7 L Monocytes % (1.7 - 9.3 %) 15.6 H Eosinophils % (0 - 5 %) 2.1 Basophils % (0.0 - 2.0 %) 0.7 Absolute Granulocytes (1.4 - 6.5 /CUMM) 5.2 Absolute Lymphocytes (1.2 - 3.4 /CUMM) 1.7 Absolute Monocytes (0.10 - 0.60 /CUMM) 1.3 H Absolute Eosinophils (0.0 - 0.7 /CUMM) 0.2 Absolute Basophils (0.0 - 0.2 /CUMM) 0.1 10/04 10/04 1509 1509 Other Body Source Fluid WBC Cancelled Fld Total RBCs Counted Cancelled Fluid Albumin Cancelled 10/04 10/04 1343 1250 Chemistry Sodium (137 - 145 mmol/L) 141 Potassium (3.5 - 5.1 mmol/L) 4.7 Chloride (98 - 107 mmol/L) 105 Carbon Dioxide (22 - 30 mmol/L) 23 Anion Gap (5 - 16) 13 BUN (7 - 17 mg/dL) 62 H Creatinine (0.5 - 1.0 mg/dL) 2.8 H Estimated GFR (>60 ml/min) 16 L BUN/Creatinine Ratio (7 - 25 %) 22.1 Glucose (65 - 99 mg/dL) 115 H Lactic Acid (0.7 - 2.1 mmol/L) 1.8 Calcium (8.4 - 10.2 mg/dL) 10.7 H Total Bilirubin (0.2 - 1.3 mg/dL) 1.4 H AST (14 - 36 U/L) 28 ALT (9 - 52 U/L) 21 Alkaline Phosphatase (<127 U/L) 142 H Ammonia (9 - 30 umol/L) 114 H Total Protein (6.3 - 8.2 g/dL) 6.8 Albumin (3.5 - 5.0 g/dL) 3.5 Globulin (1.9 - 4.2 gm/dL) 3.3 Albumin/Globulin Ratio (1.1 - 2.2 %) 1.1 Coagulation PT (9.4 - 12.5 SEC) 13.2 H INR (0.90 - 1.19) 1.21 H Hematology CBC w Diff NO MAN DIFF REQ WBC (4.8 - 10.8 /CUMM) 6.9 RBC (4.20 - 5.40 /CUMM) 3.54 L Hgb (12.0 - 16.0 G/DL) 11.8 L Hct (37 - 47 %) 35.3 L MCV (81.0 - 99.0 FL) 99.7 H MCH (27.0 - 31.0 PG) 33.5 H MCHC (33.0 - 37.0 G/DL) 33.5 RDW (11.5 - 14.5 %) 18.2 H Plt Count (130 - 400 /CUMM) 144 MPV (7.4 - 10.4 FL) 9.1 Gran % (42.2 - 75.2 %) 65.9 Lymphocytes % (20.5 - 51.1 %) 18.4 L Monocytes % (1.7 - 9.3 %) 13.9 H Eosinophils % (0 - 5 %) 1.5 Basophils % (0.0 - 2.0 %) 0.3 Absolute Granulocytes (1.4 - 6.5 /CUMM) 4.6 Absolute Lymphocytes (1.2 - 3.4 /CUMM) 1.3 Absolute Monocytes (0.10 - 0.60 /CUMM) 1.0 H Absolute Eosinophils (0.0 - 0.7 /CUMM) 0.1 Absolute Basophils (0.0 - 0.2 /CUMM) 0 Toxicology Urine Opiates Screen (>2000 NG/ML) < 100 Methadone Screen (>300 NG/ML) 72 Barbiturate Screen (>200 NG/ML) < 60 Ur Phencyclidine Scrn (>25 NG/ML) < 6.00 Amphetamines Screen (>1000 NG/ML) < 100 U Benzodiazepines Scrn (>200 NG/ML) < 85 Urine Cocaine Screen (>300 NG/ML) < 50 Urine Cannabis Screen (>50 NG/ML) < 5.00 Urines Urine Color (YEL,AMB,STR) YEL Urine Clarity (CLEAR) HAZY H Urine pH (5.0 - 8.0) 6.0 Ur Specific [place] (1.001 - 1.035) 1.020 Urine Protein (NEG,<30 MG/DL) NEG Urine Ketones (NEG) NEG Urine Nitrite (NEG) NEG Urine Bilirubin (NEG) NEG@ICTO Urine Urobilinogen (0.1 - 1.0 EU/dl) 0.2 Ur Leukocyte Esterase (NEG) LARGE H Ur Microscopic SEDIMENT EXAMINED Urine WBC (0 - 2 /HPF) 25-50 H Ur Epithelial Cells (NONE,FEW) FEW Urine Bacteria (NEG/NONE) PACKD H Hyaline Casts (0/LPF) 10-15 H Urine Hemoglobin (NEG) NEG Urine Glucose (N MG/DL) NEG
[2017-10-06 22:05] VITALS: BP 140/88
[2017-10-07 06:25] VITALS: BP 118/58
--- NOTE | 2017-10-07 07:57 | PN- Housestaff ---
Guilherme PEREZ,Latasha 10/07/17 0757: Subjective Follow-up For: Altered mental status most likely related to hepatic encephalopaty/UTI/JOHN Leg pain and tenderness JOHN Active UA Chronic medical condition Subjective: Patient seen and examined today. She is eating on interview. Her family is at bedside. She is alert and oriented 2, the same as yesterday. She notes that her IV in her left arm is painful and blister starting in the antecubital fossa. She has unchanged abdominal distention from yesterday after having 6.2 L of fluid removed from her abdomen. She states that her breathing is good and she is satting 96% on room air. Review of Systems Constitutional: Reports: no symptoms, weakness. EENTM: Reports: no symptoms. Cardiovascular: Reports: edema. Respiratory: Reports: no symptoms. Gastrointestinal: Reports: distention. Genitourinary: Reports: no symptoms. Musculoskeletal: Reports: no symptoms. Skin: Reports: no symptoms. Neurological/Psychological: Reports: no symptoms. Objective Last 24 Hrs of Vital Signs/I&O Vital Signs Date Time Temp Pulse Resp B/P B/P Pulse O2 O2 Flow FiO2 Mean Ox Delivery Rate 10/07 1454 97.9 71 20 134/76 96 Room Air 10/07 1215 97.7 68 20 118/58 10/07 0840 68 118/58 10/07 0840 68 118/58 10/07 0625 97.7 68 20 118/58 96 10/06 2205 98.1 72 18 140/88 93 Room Air 10/06 1557 Nasal Room Air Cannula 10/06 1536 Nasal Room Air Cannula Intake & Output 10/07 1600 10/07 0800 10/07 0000 Intake Total 800 630 800 Output Total Balance 800 630 800 Intake, IV 150 Intake, Oral 800 480 800 Number 2 3 Bowel Movements Physical Exam General Appearance: Alert, Cooperative, No Acute Distress Skin: No Rashes, No Breakdown, No Significant Lesion Skin Temp/Moisture Exam: Warm/Dry Sepsis Skin Exam (color): Normal for Ethnicity HEENT: Atraumatic, PERRLA, EOMI Neck: Supple, No JVD Cardiovascular: Regular Rate, Normal S1, Normal S2, No Murmurs Lungs: Clear to Auscultation Abdomen: Normal Bowel Sounds, Soft, distended abdomen with umbilical hernia and right sided upper quadrant hematoma Neurological: Normal Speech Extremities: No Clubbing, No Cyanosis, No Edema Vascular: Normal Pulses Current Medications: Current Medications Sig/Jennifer Start time Last Medication Dose Route Stop Time Status Admin Albumin Human 50 GM ONCE ONE 10/07 0030 DC 10/07 IV 10/07 0031 0239 Allopurinol 100 MG DAILY 10/06 899 AC 10/07 PO 0840 Amlodipine Besylate 10 MG DAILY 10/06 899 AC 10/07 PO 0840 Amoxicillin/ 875 MG Q12 10/06 1425 DC Clavulanate Potassium PO Atorvastatin Calcium 5 MG 1700 10/05 1700 AC 10/06 PO 1753 Carbidopa/Levodopa 1 TAB TID 10/05 1431 AC 10/07 PO 1258 Duloxetine HCl 60 MG SAT 10/07 09 AC 10/07 PO 0840 Furosemide 40 MG 10/06 09 AC PO Heparin Sodium 5,000 UNIT Q8 10/05 0600 AC 10/07 (Porcine) SC 1257 Insulin Aspart 0 TIDAC 10/07 1200 AC 10/07 SC 1256 Insulin Human Regular 2 UNITS .STK-MED ONE 10/07 0621 DC IV 10/07 0622 Insulin Human Regular 2 UNITS .STK-MED ONE 10/07 0001 DC IV 10/07 0002 Insulin Human Regular 2 UNITS .STK-MED ONE 10/06 1751 DC IV 10/06 1752 Insulin Human Regular 0 Q6 10/04 1800 DC 10/07 SC 0623 Lactulose 20 GM TID 10/05 1400 AC 10/07 PO 1257 Levothyroxine Sodium 0.175 MG DAILY AC 10/05 1431 AC 10/07 PO 0618 Mirabegron 50 MG DAILY 10/06 899 AC 10/07 PO 0840 Nadolol 20 MG DAILY 10/06 899 AC 10/07 PO 0840 Omeprazole 40 MG DAILY AC 10/06 0700 AC 10/07 PO 0618 Ondansetron HCl 4 MG ONCE ONE 10/06 1730 DC 10/06 PO 10/06 173 1730 Spironolactone 25 MG DAILY 10/06 899 AC 10/07 PO 1021 Last 24 Hrs of Lab/Unruly Results Last 24 Hrs of Labs/Mics: Laboratory Tests 10/07/17 0645: Anion Gap 11, Estimated GFR 24 L, BUN/Creatinine Ratio 26.0 H Assessment/Plan Assessment: Patient is a 81-year-old woman with past medical history significant for hypertension and hyperlipidemia, coronary artery disease, 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 She presented to the ED from [facility] care facility for the evaluation of altered mental status. She arrived in the ER afebrile and hemodynamically stable. She was unresponsive however she did open her eyes spontaneously. Labs were obtained and she was found to have an elevated ammonia level. Following this she was promptly referred to the in-patient medical team for further management. At the time of evaluation patient was minimally responsive to verbal commands, appeared drowsy. As per daughter since the discharge the patient was slightly better but never came to her baseline, she was in bed most of the time. About 3 days ago she started having nausea and vomiting and felt sick to the stomach, she didn't have any appetite and did have diarrhea. Patient was mentating okay until this morning when the nurses found her unresponsive, and 911 was called. As per daughter patient was seen by Dr. Bradley last and she was supposed to get diagnostic/therapeutic paracentesis today for worsening ascites. When we evaluated the patient in the ER whe was resting comfortably. She did not follow commands. She had no facial asymetry. Pupils were equal and reactive. She grimaced sligtly on examination of her left leg. Abd was distended not tense and non-tender. Bowel sounds were normal. Pertinent labs on admission showed no evidence of leukocytosis H&H low but stable elevated BUN and creatinine 62/2.8, ammonia level is high at 114, urine toxicology is negative Urinalysis positive for large leukocyte esterase. 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 -Chronic normocytic anemia in the setting of chronic kidney disease -History of hypothyroidism, insulin-dependent diabetes mellitus, hypertension and hyperlipidemia, urinary incontinence, chronic back pain, parkinsonism Plan Altered mental status with hyperammonemia: patient found to have ammonia level of 114. Was put on rectal lactulose but was not tolerating and was confused so NG tube was placed. Ammonia level decreased the next day to 18 on lactulose. Patient cognition is better today and she is in better spirits, eating and visiting with her family. * Patient is tolerating clears by mouth as well as her medications and she is continued on 3 times a day lactulose while she is here. * Neurochecks every 2-3 hrs * GI has been consulted we'll follow the recommendations. They have suggested that we switch the patient to rifaximin on discharge which she will take in short-term rehabilitation and will evaluate on discharge as this medication is quite expensive. * Fluids have been stopped. * Patient is without leukocytosis, afebrile, lactic acid x2 negative, but urine culture growing gram negative rods, yesterday showed to be Escherichia coli. We treated the patient with ceftriaxone and then switched her to Augmentin but after talking with Eric Smith MD we decided to stop the antibiotics. Patient had artery received 3 days' worth of antibiotics as well. We had not been able to assess her for symptoms when she was altered and when her mentation improved she denied any dysuria. * CT head without contrast to rule out any intracranial bleed/stroke is negative. * Utox negative Ascites secondary to decompensated liver from SORIA: Liver function tests abnormal. Patient with distended abdomen. Had previously had appointment for therapeutic paracentesis with Dr. Bradley around this time. * GI has been consulted, as per GI recommendations, patient had paracentesis done with return of 6.2 L of transudative fluid. WBC level of fluid 250, patient continues to be afebrile with normal blood WBC count. * Paracentesis labs show a transudate is fluid most likely from portal hypertension as SAAG is greater than 1.1. * As per patient's family and Dr. Bradley, patient was to hold spironolactone and Lasix as it was not helping her kidney function or the buildup of fluid. Dr. Bradley stated that any new recommendations from Dr. Salmeron, who is actively following the patient while she is in the hospital, are to be followed. Of note , patient's blood pressure is low normal at 118/[address] Salmeron we will discontinue spironolactone but continue her Lasix 40 mg Wednesday dosing outpatient. * Patient will continue when she leaves here with taps every 1-2 weeks. Acute on chronic kidney injury STAGE 3B/4 likely in the setting of dehydration: baseline Cr for patient is in high 1's. On admission is 2.8. Today 2.0. * Fluids and Byrne have been DC'd. Patient has had better urine output now that she is drinking. Continue to monitor. * Patient will follow-up with music industry intern Piyush Warner MD outpatient. * Avoid any nephrotoxic agents. Chronic normocytic anemia in the setting of chronic kidney disease: Patient is at baseline Hb level. * Monitor H&H, watch for any active signs of bleed. History of hypothyroidism * Continue levothyroxine PO History of insulin-dependent diabetes mellitus * Nothing by mouth insulin sliding scale with D5 half normal saline normal saline. Disposition planning * Physical therapy DVT prophylaxis with subcutaneous heparin Patient is DNR/DNI Regular diet Problem List: 1. Weakness 2. Increased ammonia level 3. Altered mental status Pain Ratin Pain Location: na Pain Goal: Remain pain free Pain Plan: na Tomorrow's Labs & Rationales: to be discharged Francisca Dick MD 10/07/17 1143: Attending MD Review Statement Attending Statement Attending MD Statement: examined this patient, discuss w/resident/PA/SPRING UPHOLSTERER, agreed w/resident/PA/SPRING UPHOLSTERER, reviewed EMR data (avail), discussed with nursing, discussed with case mgmt, amended to note Attending Assessment/Plan: Patient seen and examined. Alert and oriented 3. Conversant appropriately. Family present at the bedside. No issues overnight. No new complaints this morning. Afebrile and hemodynamically stable. On examination abdomen is distended but soft and nontender with normal bowel sounds. She has no gross focal neurologic deficits. Plan: -Patient is medically stable to be discharged today. -Due to deconditioning she will be discharged to snf facility for short-term rehabilitation. Patient and family in agreement with this plan. -To prevent recurrent hepatic encephalopathy we will be discharging patient rifaximin. We will go with his regimen over lactulose in order to avoid dehydration in this patient particularly with use of diuretic therapy. -She should continue to follow-up with the GI service to schedule paracentesis and liver to prevent symptomatic ascites. -She has not received any significant benefit from Aldactone use. We will discontinue this regimen as suggested by her biomed tech Dr. Bradley. She will continue on Lasix every other day due to her chronic kidney disease. Awaiting evaluation today by her nephrology service. -She completed a 3 day course of intravenous antibiotic therapy for her cystitis. She is currently asymptomatic. Afebrile with no leukocytosis. No further antibiotic therapy is needed.
--- NOTE | 2017-10-07 07:59 | Patient Discharge Instructions ---
Discharge Instructions General Discharge Information You were seen/treated for: -altered mental status secondary to metabolic encephalopathy caused by liver failure -UTI You had these procedures: paracentesis Special Instructions: 1. follow up with your pcp in one week 2. follow up with Dr. Bradley supervisor game farm in 1 week. He will evaluate need for continued Rifaximin. 3. take all medications as directed Diet Continue normal diet: Yes Additional DIET Information: advance slowly as tolerated Activity Full Activity/No Limits: Yes (as tolerated) Acute Coronary Syndrome Inclusion Criteria At DC or during hospital stay patient has or had the following: ACS DIAGNOSIS No Discharge Core Measures Meds if any: Prescribed or Continued at Discharge Meds if any: NOT Prescribed or Continued at Discharge Congestive Heart Failure Inclusion Criteria At DC or during hospital stay patient has or had the following: CHF DIAGNOSIS No Discharge Core Measures Meds if any: Prescribed or Continued at Discharge Meds if any: NOT Prescribed or Continued at Discharge Cerebrovascular accident Inclusion Criteria At DC or during hospital stay patient has or had the following: CVA/TIA Diagnosis No Discharge Core Measures Meds if any: Prescribed or Continued at Discharge Meds if any: NOT Prescribed or Continued at Discharge Venous thromboembolism Inclusion Criteria VTE Diagnosis No VTE Type NONE VTE Confirmed by (Test) NONE Discharge Core Measures - Per Current guidelines, there needs to be overlap - treatment for the first 5 days of Warfarin therapy. - If discharged on Warfarin prior to 5 days of - overlap therapy, the patient will need to be - assessed for post discharge needs including - *Post discharge parental anticoagulation - *Warfarin and/or parental anticoagulation education - *Follow up date to check INR post discharge At least 5 days overlap therapy as Inpatient No Meds if any: Prescribed or Continued at Discharge Note: Overlap Therapy is Warfarin and Anticoagulant Meds if any: NOT Prescribed or Continued at Discharge
--- NOTE | 2017-10-07 08:33 | Discharge Summary ---
Visit Information Visit Dates Admission Date: 10/04/17 Discharge Date: 10/07/17 Hospital Course Course Attending Physician: Francisca Dick MD Primary Care Physician: Anoop Nava MD Hospital Course: Patient is a 81-year-old woman with past medical history significant for hypertension and hyperlipidemia, coronary artery disease, cirrhosis secondary to JACKSON, history of hypothyroidism chronic back pain, history of stage III CKD , recently discharged from [facility] on September 07 to [place] after being treated for recurrent ascites secondary to decreased percentage cirrhosis( from Jackson).presented to the ED from [facility] care facility for the evaluation of altered mental status. Pertinent vitals and labs in the ED . Vitals were stable .No evidence of leukocytosis H&H low but stable elevated BUN and creatinine 62/2.8, ammonia level is high at 114 Urine toxicology is negative Urine analysis positive for large leukocyte esterase. CT head didn't show any acute intracranial bleed/evidence of stroke Following [facility]. Acute hepatic encephalopathy/ Altered mental status with hyperammonemia-likely in the setting of urinary tract infection Patient was admitted to general floor. She was kept nothing by mouth initially and was put on per rectal lactulose enemas, however patient's mental status didn 't improve as she didn't have enough bowel movements after the enemas. Eventually she was put on NG tube and by mouth lactulose was given 3 times per day and titrating up to 3 bowel movements every day that resulted in improvement of her altered mental status. She was also evaluated by GI recommended to continue lactulose and treatment for urinary tract infection. Ascites with Cirrhosis secondary to JACKSON: Patient had abdominal paracentesis done as well, 6 L of transudative fluid was removed. SBP was ruled out. Lasix and spironolactone was held initially due to worsening kidney dysfunction, later Lasix (every other day )was resumed. During the hospitalization patient received lactulose but on discharge it was decided to put the patient on rifaximin instead of lactulose in order to avoid dehydration particularly with use of diuretic therapy. Acute on chronic kidney injury Lasix and spironolactone was held during the admission. On discharge Lasix every other day and lisinopril was resumed patient was advised to follow-up with her ferruler as an outpatient. Chronic normocytic anemia due to CKD H&H remains stable without any active signs of bleeding. Other chronic medications including hypertension, hyperlipidemia, diabetes mellitus, hypothyroidism All home medications were resumed after improvement of clinical condition. DVT prophylaxis with subcutaneous heparin Patient is DNR/DNI(CODE STATUS confirmed with the daughters and the ) Allergies: Coded Allergies: Opioids - Morphine Analogues (ITCH, GI UPSET 08/03/16) Opioids-Meperidine and Related (ITCH, GI UPSET 08/03/16) Opioids-Methadone and Related (ITCH, GI UPSET 08/03/16) codeine (GI UPSET 08/03/16) morphine (ITCHING, GI UPSET 08/03/16) Significant Procedures: EXAM TYPE: US - US-PARACENTESIS EXAMINATION: PARACENTESIS CLINICAL INFORMATION: Ascites COMPARISON: Paracentesis 09/23/2017 TECHNIQUE: Indirect ultrasound guidance using a 6 Jordanian Lvkh-P-Spsvzqhe closed needle/catheter system FINDINGS: Informed consent was obtained from the patient's family prior to the procedure. During this process, the procedure alternatives were explained, along with the intended outcome and benefits. The risks of the procedure, as well as the risk of not doing the procedure, was discussed. The patient and her family were given the opportunity to ask questions regarding the procedure. A signed consent form which documents this discussion was placed in the medical record. Ultrasound evaluation of the abdomen for ascites was performed. Moderate to large amount of ascites is noted in the right lower quadrant. The site was marked. A timeout procedure was performed. The area was prepped and draped in usual sterile fashion. Using standard interventional and sterile techniques, lidocaine was used to anesthetize the region. A 6 Jordanian Nnuo-Q-Xkefvdmm closed needle/catheter system was introduced into the right lower quadrant using standard safety needle technique. Approximately 6.2 L of light yellow fluid was removed into the Vacutainer bottles. The catheter was then removed. Good hemostasis was achieved. The patient demonstrated immediate symptomatic relief. The patient tolerated the procedure well. Dermabond was placed. The patient was discharged from the department in stable condition. COMPLICATIONS: None. IMPRESSION: Successful ultrasound-guided paracentesis yielding 6.2 L of fluid. DICTATED BY: John Hawkins MD DATE/TIME DICTATED:10/05/171606 CENTER DIRECTOR:TAMMY DATE/TIME TRANSCRIBED:10/05/171606 CONFIDENTIAL, DO NOT COPY WITHOUT APPROPRIATE AUTHORIZATION. <Electronically signed in Other Vendor System> SIGNED BY: John Hawkins MD 10/05/17 9310 EXAM TYPE: CAT - CT HEAD WO IV CONTRAST EXAMINATION: CT HEAD WITHOUT CONTRAST CLINICAL INFORMATION: Altered mental status. COMPARISON: CT head 06/29/2016 TECHNIQUE: Contiguous axial imaging was performed from the skull base to vertex without intravenous administration of contrast. DLP: 597.46 mGy-cm FINDINGS: There is no evidence of acute intracranial hemorrhage or territorial infarction. No abnormal mass effect or midline shift is seen. Zimmerman to white matter differentiation is well preserved. No extra-axial fluid collections are identified. There is atrophy with prominence of the ventricles and the sulci and hypodensity of the periventricular white matter due to chronic small vessel ischemic disease. There is vascular calcifications of the internal carotid arteries bilaterally.. The osseous structures and soft tissues are normal. The mastoid air cells and visualized portions of the paranasal sinuses are well aerated. IMPRESSION: No acute intracranial pathology. DICTATED BY: Felix Cai MD DATE/TIME DICTATED:10/04/171603 CENTER DIRECTOR:TAMMY DATE/TIME TRANSCRIBED:10/04/171603 CONFIDENTIAL, DO NOT COPY WITHOUT APPROPRIATE AUTHORIZATION. <Electronically signed in Other Vendor System> SIGNED BY: Felix Cai MD 10/04/17 4465 Disposition Summary Disposition Principal Diagnosis: Acute hepatic encephalopathy/ Altered mental status with hyperammonemia-likely in the setting of urinary tract infection Additional Diagnosis: Ascites with Cirrhosis secondary to JACKSON Discharge Disposition: SNF Discharge Instructions General Discharge Information Code Status: Full Code Patient's Diet: REGULAR DIET Patient's Activity: as tolerated Follow-Up Instructions/Appts: 1. follow up with your pcp in one week 2. follow up with Dr. Bradley superintendent mechanical in 1 week. He will evaluate need for continued Rifaximin. 3. take all medications as directed Medications at Discharge Discharge Medications: Stop taking the following medications: Spironolactone (Spironolactone) 25 MG TABLET ORAL DAILY Continue taking these medications: Amlodipine Besylate (Amlodipine Besylate) 10 MG TABLET 1 Tablet ORAL DAILY Qty = 90 Comments: Last Taken: 10/07/17 Time: 8:30 AM Nadolol (Nadolol) 20 MG TABLET 1 Tablet ORAL DAILY Comments: Last Taken: 10/07/17 Time: 8:30 AM Lovastatin (Lovastatin) 20 MG TABLET 1 Tablet ORAL DAILY Comments: LIPITOR GIVEN WHILE IN HOSPITAL Last Taken: 10/06/17 Time: 6:00 PM Allopurinol (Zyloprim) 100 MG TABLET 1 Tablet ORAL DAILY Comments: Last Taken: 10/07/17 Time: 8:30 AM Omeprazole (Omeprazole) 40 MG CAPSULE.DR 1 Capsule ORAL DAILY Comments: Last Taken: 10/07/17 Time: 6:15 AM Mirabegron (Myrbetriq) 50 MG TAB.ER.24H 1 Tablet ORAL DAILY Comments: Last Taken: 10/07/17 Time: 8:30 AM Cyanocobalamin (Vitamin B-12) 1,000 MCG TABLET 1 Tablet ORAL DAILY Comments: NOT GIVEN IN HOSPITAL Magnesium Oxide (Magnesium) 500 MG CAPSULE 1 Capsule ORAL DAILY Comments: Last Taken: 09/07/17 Time: 10:00 AM Carbidopa/Levodopa (Sinemet 25-100 MG Tablet) 25 MG-100 MG TABLET 1 Tablet ORAL THREE TIMES DAILY Comments: Last Taken: 10/07/17 Time: 1:00 PM Duloxetine HCl (Cymbalta) 60 MG CAPSULE.DR 1 Capsule ORAL WEDNESDAY, WEDNESDAY, WEDNESDAY Comments: Last Taken: 10/07/17 Time: 8:30 AM Fentanyl (Duragesic) 12 MCG/HOUR PATCH.TD72 1 Patch On the skin Every 3 days Qty = 10 Instructions: . Comments: NOT GIVEN IN HOSPITAL Levothyroxine Sodium (Synthroid) 175 MCG TABLET 1 Tablet ORAL DAILY Qty = 30 Instructions: . Comments: Last Taken: 10/07/17 Time: 6:15 AM Lidocaine (Lidoderm) 5 % ADH..PATCH 1 Patch On the skin DAILY Qty = 30 Instructions: .may wear up to 12 hours Comments: NOT GIVEN IN HOSPITAL Furosemide (Furosemide) 40 MG TABLET 1 Tablet ORAL WEDNESDAY, WEDNESDAY AND WEDNESDAY Qty = 45 Comments: NOT GIVEN IN HOSPTIAL Insulin Aspart (Novolog) 100 UNIT/ML VIAL 0 Units Inject into fatty tissue 3 TIMES DAILY BEFORE MEALS Qty = 1 Instructions: SUGARS SS 80-150 0 UNITS 151-200 2 UNITS 201-250 3 UNITS 251-300 4 UNITS 301-350 5 UNITS 351-400 6 UNITS >400 7 UNITS CALL UR DOCTOR Comments: Last Taken: 10/07/17 Time: 12:30 PM Insulin Detemir (Levemir) 100 UNIT/ML VIAL 6 Unit Inject into fatty tissue DAILY Qty = 1 Comments: NOT GIVEN IN HOSPITAL Ondansetron HCl (Zofran) 4 MG TABLET 1 Tablet ORAL EVERY 8 HOURS NEEDED as needed for NAUSEA/VOMITING Comments: NOT GIVEN IN HOSPITAL Start taking the following new medications: Rifaximin (Xifaxan) 550 MG TABLET 1 Tablet ORAL TWICE DAILY Qty = 28 No Refills Comments: NOT GIVEN IN HOSPTIAL Copies To: Brandy PEREZ,Anoop Moore Attending MD Review Statement Documenting Attending: Francisca Dick MD Other Findings: Medically stable to be discharged today.
[2017-10-07] MEDS ORDERED: XIFAXAN550 M1 PO (11:06)
[2017-10-07 12:15] VITALS: BP 118/58
[2017-10-07 14:54] VITALS: BP 134/76
== END 2017-10-07 15:57 | DRG 441 ==
LOC: ERH 10:46 → ERHI 14:18 → 2NB 14:18 → ENRESERV 14:36 → ENTRNSPT 18:05 → EDTRNSPT 18:31 → EDTRNSPTSTS 18:31 → 2NB 18:33 → CMPTRNSPT 18:54 → ENPENDDIS 10-07 13:49 → ENTRNSPT 10-07 15:04 → CMPTRNSPT 10-07 15:27 → 2NB 10-07 15:57
PROVIDERS: Radiology Vascular & Interventional Radiology; Student in an Organized Health Care Education/Training Program
PROC: 0W9G3ZZ Drainage of Peritoneal Cavity, Percutaneous Approach (ICD-10-PCS; principal; 2017-10-05)
DX: K75.81 Nonalcoholic steatohepatitis (NASH) (principal); K72.00 Acute and subacute hepatic failure without coma; N17.9 Acute kidney failure, unspecified; E72.20 Disorder of urea cycle metabolism, unspecified; R18.8 Other ascites; K76.6 Portal hypertension; E11.22 Type 2 diabetes mellitus with diabetic chronic kidney disease; G20 Parkinson's disease; N18.3 Chronic kidney disease, stage 3 (moderate); N39.0 Urinary tract infection, site not specified; B96.20 Unspecified Escherichia coli [E. coli] as the cause of diseases classified elsewhere; K31.84 Gastroparesis; D63.1 Anemia in chronic kidney disease; E11.40 Type 2 diabetes mellitus with diabetic neuropathy, unspecified; K74.60 Unspecified cirrhosis of liver; Z79.4 Long term (current) use of insulin; K21.9 Gastro-esophageal reflux disease without esophagitis; E03.9 Hypothyroidism, unspecified; K31.89 Other diseases of stomach and duodenum; E11.43 Type 2 diabetes mellitus with diabetic autonomic (poly)neuropathy; I13.10 Hypertensive heart and chronic kidney disease without heart failure, with stage 1 through stage 4 chronic kidney disease, or unspecified chronic kidney disease; R41.82 Altered mental status, unspecified; E86.0 Dehydration; F32.9 Major depressive disorder, single episode, unspecified; G25.81 Restless legs syndrome; E78.5 Hyperlipidemia, unspecified; R32 Unspecified urinary incontinence; Z90.49 Acquired absence of other specified parts of digestive tract; Z96.653 Presence of artificial knee joint, bilateral; Z90.710 Acquired absence of both cervix and uterus; Z88.5 Allergy status to narcotic agent
CPT/HCPCS: 2NBSP; 87075; 36415; 71045; 80307; 81001; 82436; 87040; 87086; 88305; 93970; 96360; 97116-GO; 97161-GP; J0696; J1644; J1815; J3101; J7040; J7042; P9047

== ENCOUNTER 2017-10-13 10:46 | Emergency (ER) | payer OTHER, MEDICARE ==
[~2017-10-13] VITALS: Ht 167.6 cm; Wt 111.1 kg
[~2017-10-13 10:46] MED LIST changes: +XIFAXAN550 M1 PO; +ZOFRAN4 M2 PO
--- NOTE | 2017-10-13 14:21 | ED GI/GU/ABDOMINAL COMPLAINT ---
History of Present Illness General Chief Complaint: General Adult Stated Complaint: PER "SHE NEEDS A TAP DONE" Source: patient Exam Limitations: poor historian Vital Signs & Intake/Output Vital Signs & Intake/Output Vital Signs Date Time Temp Pulse Resp B/P B/P Pulse O2 O2 Flow FiO2 Mean Ox Delivery Rate 10/13 1813 98.0 74 18 120/70 97 Room Air 10/13 1510 95 Room Air 10/13 1403 97.8 88 20 117/76 96 Room Air 10/13 1111 96.1 106 18 138/81 94 Room Air Allergies Coded Allergies: Opioids - Morphine Analogues (ITCH, GI UPSET 08/03/16) Opioids-Meperidine and Related (ITCH, GI UPSET 08/03/16) Opioids-Methadone and Related (ITCH, GI UPSET 08/03/16) codeine (GI UPSET 08/03/16) morphine (ITCHING, GI UPSET 08/03/16) Reconcile Medications Allopurinol (Zyloprim) 100 MG TABLET 1 TAB PO DAILY GOUT (Reported) Amlodipine Besylate 10 MG TABLET 1 TAB PO DAILY BP (Reported) Carbidopa/Levodopa (Sinemet 25-100 MG Tablet) 25 MG-100 MG TABLET 1 TAB PO TID GAIT/TREMOR INSTABILITY (Reported) Cyanocobalamin (Vitamin B-12) 1,000 MCG TABLET 1 TAB PO DAILY SUPPLEMENT ( Reported) Duloxetine HCl (Cymbalta) 60 MG CAPSULE.DR 1 CAP PO [facility] (Reported) Fentanyl (Duragesic) 12 MCG/HOUR PATCH.TD72 1 PAT TOP Q3D CHRONIC BACK PAIN . Furosemide 40 MG TABLET 1 TAB PO Wednesday DIURETIC (Reported) Insulin Aspart (Novolog) 100 UNIT/ML VIAL 0 UNITS SC TIDAC DM SUGARS SS 80-150 0 UNITS 151-200 2 UNITS 201-250 3 UNITS 251-300 4 UNITS 301-350 5 UNITS 351-400 6 UNITS >400 7 UNITS CALL UR DOCTOR Insulin Detemir (Levemir) 100 UNIT/ML VIAL 6 UNIT SC DAILY DM Levothyroxine Sodium (Synthroid) 175 MCG TABLET 1 TAB PO DAILY HYPOTHYROID . Lidocaine (Lidoderm) 5 % ADH..PATCH 1 PAT TOP DAILY CHRONIC BACK PAIN .may wear up to 12 hours Lovastatin 20 MG TABLET 1 TAB PO DAILY CHOLESTEROL (Reported) Magnesium Oxide (Magnesium) 500 MG CAPSULE 1 CAP PO DAILY SUPPLEMENT ( Reported) Mirabegron (Myrbetriq) 50 MG TAB.ER.24H 1 TAB PO DAILY BLADDER (Reported) Nadolol 20 MG TABLET 1 TAB PO DAILY BP (Reported) Omeprazole 40 MG CAPSULE.DR 1 CAP PO DAILY GI (Reported) Ondansetron HCl (Zofran) 4 MG TABLET 1 TAB PO Q8P PRN NAUSEA/VOMITING ( Reported) Oxycodone HCl/Acetaminophen (Percocet 5-325 MG Tablet) 5 MG-325 MG TABLET 1 TAB PO BID PRN PAIN Rifaximin (Xifaxan) 550 MG TABLET 1 TAB PO BID LIVER Triage Note: PT TO ER WITH SPOUSE FROM [facility], C/C "I NEED MY ABD TAPPED" PT WITH HX OF LIVER FAILURE AND CIRRHOSIS, LAST PARACENTESIS 1 WEEK AGO WITH 6.6L OFF. STATES HER ABD AND LEGS FEEL DISTENDED. C/O LEFT SIDED FLANK PAIN WORSE WITH MOVEMENT X 9 DAYS. Triage Nurses Notes Reviewed? yes ? N Is pt currently ? 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 Patient otherwise is without complaints denies any fever chills abdominal pain nausea vomiting or shortness of breath. (Chidi Arora) Past History Travel History Traveled to [place] past 21 day No Medical History Any Pertinent Medical History? 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 MOTHER (Mother at the age of 26 years, unknown cause). Hx Contributory? No (Chidi Arora) Review of Systems Review of Systems Constitutional: Reports: no symptoms. EENTM: Reports: no symptoms. Respiratory: Reports: no symptoms. Cardiovascular: Reports: no symptoms. GI: Reports: see HPI, abdominal pain. Genitourinary: Reports: no symptoms. Musculoskeletal: Reports: no symptoms. Skin: Reports: no symptoms. Neurological/Psychological: Reports: no symptoms. Hematologic/Endocrine: Reports: no symptoms. Immunologic/Allergic: Reports: no symptoms. All Other Systems: Reviewed and Negative (Chidi Arora) Physical Exam Physical Exam General Appearance: no apparent distress, alert Head: atraumatic Eyes: Bilateral: normal appearance. Ears, Nose, Throat, Mouth: Tympanic normal Respiratory: normal breath sounds, chest non-tender, no respiratory distress Cardiovascular: regular rate/rhythm Gastrointestinal: normal bowel sounds, non-tender, distention Skin: intact, normal color Core Measures ACS in differential dx? No Sepsis Present: No Sepsis Focused Exam Completed? No (Chidi Arora) Progress Differential Diagnosis: AAA, AMI, appendicitis, biliary colic, bowel obstruction , colon cancer, diverticulitis, esophageal varices, gastritis, hepatitis, hernia , hemorrhoids, ischemic bowel, inflamm bowel dis, kidney stone, ovarian cyst, ovarian torsion, pancreatitis, PID/cervicitis, peptic ulcer, PUD/GERD, perforated viscous, SBO, UTI/pyelo Plan of Care: Orders Procedure Date/time Status US-PARACENTESIS 10/13 1522 Active Patient on initial presentation was afebrile no concerns of infectious process or spontaneous bacterial peritonitis, patient presents with concerns of therapeutic paracentesis, patient denies any concerns of acute shortness of breath. Discussed patient with interventional radiology who will perform the therapeutic paracentesis, is indicated to me by IR that patient received 5.3 L of fluid after aspiration, discussed patient with Dr. Chen who advised patient to receive 50 g of albumin due to the paracentesis. Please note that prior to my discussion with patient that nursing staff discharged patient and remove the IV. Initial ED EKG: none (Chidi Arora) Departure Departure Disposition: HOME OR SELF CARE Condition: Stable Clinical Impression Primary Impression: Abdominal pain Secondary Impressions: Pelvic fluid collection Referrals: Brandy PEREZ,Anoop Moore (PCP/Family) Additional Instructions: Follow-up with your interventional radiology for scheduling of routine paracentesis if symptoms worsen return to emergency room Departure Forms: Customer Survey General Discharge Information Prescriptions: Current Visit Scripts Oxycodone HCl/Acetaminophen (Percocet 5-325 MG Tablet) 1 TAB PO BID PRN PAIN #10 TAB (Chidi Arora) PA/STRIP PICKER Co-Sign Statement Statement: ED Attending supervision documentation- [x] I saw and evaluated the patient. I have also reviewed all the pertinent lab results and diagnostic results. I agree with the findings and the plan of care as documented in the PA's/STRIP PICKER's documentation. [] I have reviewed the ED Record and agree with the PA's/STRIP PICKER's documentation. [] Additions or exceptions (if any) to the PAs/STRIP PICKER's note and plan are summarized below: [] (Syed Frausto DO)
[2017-10-13 18:13] VITALS: BP 120/70
[2017-10-13] MEDS ORDERED: PERCOCET 5-3251 EACH PO (18:13)
--- NOTE | 2017-10-14 14:24 | ULTRASOUND REPORT ---
CLINICAL HISTORY: This patient is a 81 year old female with cirrhosis and recurrent ascites, who is referred to Interventional Radiology for ultrasound-guided paracentesis. PROCEDURE: Ultrasound-guided paracentesis. PHYSICIANS: Dr. Brice Prieto (attending). MEDICATIONS: 10 mL of 1% lidocaine SQ. COMPLICATIONS: None ESTIMATED BLOOD LOSS: <5 mL SPECIMENS: None IMPLANT: None. SITE MARKING: As part of the preprocedure verification policy, a site marking procedure was initiated. Due to the nature the procedure, the insertion site could not be predetermined thus invoking the policy of exemption to site laterality and marking. Insertion site marking was performed in the procedure room in conjunction with imaging confirmation. PROCEDURE NOTE: Informed consent was obtained from the patient prior to the procedure. During this process, the procedure and potential alternatives were explained along with the intended outcome and benefits. The risks of the procedure, including the possibility of an unsuccessful procedure, as well as the risk of not doing the procedure, were discussed. The patient was given the opportunity to ask questions regarding the procedure and appeared competent to make decisions. A signed consent form documenting this discussion was placed in the medical record. A time-out procedure was performed. Appropriate preprocedure medical history and imaging studies were reviewed. The patient was brought to the ultrasound room and placed in the supine position. A time-out procedure was performed. Ultrasound images of the abdomen were obtained to localize a moderate collection of ascites. Images were permanently saved to the record. An area of the right lower quadrant was prepped and draped in the standard sterile fashion. All elements of maximal sterile barrier technique followed including use of cap, mask, sterile gown, sterile gloves, a sterile full body drape and hand hygiene. Also followed skin preparation with 2% chlorhexidine for cutaneous antisepsis, and sterile ultrasound preparation with sterile gel and probe cover when applicable. 10 mL of 1% lidocaine was used to obtain local anesthesia of the skin and deeper tissues. A standard small-bore needle was introduced to sample fluid and demonstrated a safe access route. There was no evidence of traversing adjacent organs or vascular structures. A 6-Fr [id number] closed needle/catheter system was utilized for access. 5.3 L of clear straw-colored fluid was aspirated before drainage ceased. The catheter was removed and sterile dressing applied. The patient tolerated the procedure well without evidence of complications. FINDINGS: Moderate simple abdominal ascites as detailed above. IMPRESSION: Successful ultrasound-guided therapeutic paracentesis. PLAN: The patient was stable after the procedure. The patient will be discharged home.
== END 2017-10-13 19:16 ==
LOC: ERH 10:46
DX: R18.8 Other ascites (principal)
CPT/HCPCS: 4007; J2001; J3490; P9047

== ENCOUNTER 2017-10-17 17:44 | Inpatient (IN) | payer OTHER, MEDICARE ==
[~2017-10-17] VITALS: Ht 167.6 cm; Wt 95.0 kg
[~2017-10-17 17:44] MED LIST changes: +PERCOCET 5-3251 EACH PO
--- NOTE | 2017-10-17 18:00 | ED GI/GU/ABDOMINAL COMPLAINT ---
History of Present Illness General Chief Complaint: General Adult Stated Complaint: BIBA FOR +N/V, NO APPITITE S\P PARACENTESIS Source: patient, family, old records, EMS, W10 Exam Limitations: confusion Vital Signs & Intake/Output Vital Signs & Intake/Output Vital Signs Date Time Temp Pulse Resp B/P B/P Pulse O2 O2 Flow FiO2 Mean Ox Delivery Rate 10/17 2308 97.5 77 16 142/78 92 10/17 2049 98.7 100 20 130/82 95 Room Air 10/17 1802 97.8 96 20 131/77 98 Room Air ED Intake and Output 10/18 0000 10/17 1200 Intake Total 0 Output Total 0 Balance 0 Intake, Oral 0 Output, Urine 0 Patient 210 lb Weight Weight Bed scale Measurement Method Allergies Coded Allergies: Opioids - Morphine Analogues (ITCH, GI UPSET 08/03/16) Opioids-Meperidine and Related (ITCH, GI UPSET 08/03/16) Opioids-Methadone and Related (ITCH, GI UPSET 08/03/16) codeine (GI UPSET 08/03/16) morphine (ITCHING, GI UPSET 08/03/16) Triage Nurses Notes Reviewed? yes ? N Is pt currently ? No HPI: Patient brought in from [facility] for evaluation of abdominal distention and nausea and vomiting. Patient has a history of SORIA and her last paracentesis was just on Wednesday. states that 5.3 L were removed however the fluid is BACK. Patient has also been confused. states that it is similar to when she has had ammonia build up in her blood. This morning she began dry heaving. There are no fevers or chills. She denies any abdominal pain. (Liane PEREZ,Toni Gonzalez) Reconcile Medications Allopurinol (Zyloprim) 100 MG TABLET 1 TAB PO DAILY GOUT (Reported) Amlodipine Besylate 10 MG TABLET 1 TAB PO DAILY BP (Reported) Carbidopa/Levodopa (Sinemet 25-100 MG Tablet) 25 MG-100 MG TABLET 1 TAB PO TID GAIT/TREMOR INSTABILITY (Reported) Cyanocobalamin (Vitamin B-12) 1,000 MCG TABLET 1 TAB PO DAILY SUPPLEMENT ( Reported) Duloxetine HCl (Cymbalta) 60 MG CAPSULE.DR 1 CAP PO [facility] (Reported) Fentanyl (Duragesic) 12 MCG/HOUR PATCH.TD72 1 PAT TOP Q3D CHRONIC BACK PAIN . Furosemide 40 MG TABLET 1 TAB PO Wednesday DIURETIC (Reported) Insulin Aspart (Novolog) 100 UNIT/ML VIAL 0 UNITS SC TIDAC DM SUGARS SS 80-150 0 UNITS 151-200 2 UNITS 201-250 3 UNITS 251-300 4 UNITS 301-350 5 UNITS 351-400 6 UNITS >400 7 UNITS CALL UR DOCTOR Insulin Detemir (Levemir) 100 UNIT/ML VIAL 6 UNIT SC DAILY DM Lactulose 10 GRAM/15 ML SOLUTION 40 ML PO TID HEPATIC FAILURE (Reported) Levothyroxine Sodium (Synthroid) 175 MCG TABLET 1 TAB PO DAILY HYPOTHYROID . Lovastatin 20 MG TABLET 1 TAB PO DAILY CHOLESTEROL (Reported) Magnesium Oxide (Magnesium) 500 MG CAPSULE 1 CAP PO DAILY SUPPLEMENT ( Reported) Mirabegron (Myrbetriq) 50 MG TAB.ER.24H 1 TAB PO DAILY BLADDER (Reported) Omeprazole 40 MG CAPSULE.DR 1 CAP PO DAILY GI (Reported) Ondansetron HCl (Zofran) 4 MG TABLET 1 TAB PO Q8P PRN NAUSEA/VOMITING ( Reported) Rifaximin (Xifaxan) 550 MG TABLET 1 TAB PO BID LIVER (Elizabeth PEREZ,Anil Marinelli) Past History Travel History Traveled to [place] past 21 day No Medical History Any Pertinent Medical History? 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 MOTHER (Mother at the age of 26 years, unknown cause). Hx Contributory? No (Liane PEREZ,Toni Gonzalez) Review of Systems Review of Systems Constitutional: Reports: no symptoms. EENTM: Reports: no symptoms. Respiratory: Reports: no symptoms. Cardiovascular: Reports: no symptoms. GI: Reports: see HPI, bloating, nausea. Genitourinary: Reports: no symptoms. Musculoskeletal: Reports: no symptoms. Skin: Reports: no symptoms. Neurological/Psychological: Reports: no symptoms. Hematologic/Endocrine: Reports: no symptoms. Immunologic/Allergic: Reports: no symptoms. All Other Systems: Reviewed and Negative (Liane PEREZ,Toni Gonzalez) Physical Exam Physical Exam General Appearance: well developed/nourished, alert, awake, moderate distress Head: atraumatic Eyes: Bilateral: PERRL, EOMI. Ears, Nose, Throat, Mouth: hearing grossly normal, moist mucous membrane Neck: normal inspection, supple, full range of motion Respiratory: normal breath sounds, chest non-tender, no respiratory distress, lungs clear Cardiovascular: regular rate/rhythm, normal peripheral pulses Gastrointestinal: normal bowel sounds, soft, non-tender, distention Back: normal inspection, normal range of motion Extremities: pedal edema Core Measures ACS in differential dx? No Sepsis Present: No Sepsis Focused Exam Completed? No (Liane PEREZ,Toni Gonzalez) Progress Differential Diagnosis: HEPATIC ENCEPHALOPATHY, ELECTROLYTE ABNORMALITY, PANCREATITIS, HIGHLY DOUBT sbp GIVEN THAT SHE HAS NO ABDOMINAL PAIN. Plan of Care: Orders Procedure Date/time Status Heart Healthy Diet 10/18 B Active HEPATIC FUNCTION PANEL 10/18 0600 Active CBC WITHOUT DIFFERENTIAL 10/18 0600 Active BASIC ELECTROLYTES PLUS BUN&CR 10/18 0600 Active FingerStick- Glucose 10/18 UNK Active Pathway - chart 10/17 2332 Active House Staff 10/17 2332 Active Patient Data 10/17 2332 Active Code Status 10/17 2332 Active Weight 10/17 2321 Active Vital Signs 10/17 2321 Active Teach/Educate 10/17 232 Active Pain Treatment and Response 10/17 232 Active Nutritional Intake, Monitor 10/17 2321 Active Isolation 10/17 2321 Active Intake & Output 10/17 232 Active Patient Care Conference 10/17 2321 Active Activity/Ambulation 10/17 2321 Active Weight 10/17 2309 Active FingerStick- Glucose 10/17 2251 Complete Add-on Test (ER Only) 10/17 2145 Active URINE DRUGS OF ABUSE 10/17 2126 Active Saline Lock 10/18 2055 Active Misc Message 10/18 2055 Active ED Holding Orders 10/18 2055 Active Admit to inpatient 10/18 2055 Active Vital Signs 10/18 2055 Active Code Status 10/18 2055 Complete PHOSPHORUS 10/17 1818 Complete MAGNESIUM 10/17 1818 Complete LACTIC ACID 10/17 1818 Complete DIRECT BILIRUBIN 10/17 1818 Complete URINALYSIS 10/17 1800 Active TROPONIN LEVEL 10/17 1800 Complete PARTIAL THROMBOPLASTIN TIME 10/17 1800 Complete PROTHROMBIN TIME 10/17 1800 Complete AMMONIA 10/17 1800 Complete LIPASE 10/17 1800 Complete COMPREHENSIVE METABOLIC PANEL 10/17 1800 Complete CBC WITHOUT DIFFERENTIAL 10/17 1800 Complete AMYLASE 10/17 1800 Complete EKG 10/17 1800 Active Intake & Output 10/17 1753 Active Patient Data 10/17 1644 Active Lab Add-on Test 10/17 UNK Active VTE Mechanical Prophylaxis 10/17 UNK Active Vital Signs 10/17 UNK Complete Intake & Output 10/17 UNK Complete Hemoccult 10/17 UNK Active Current Medications Sig/Jennifer Start time Last Medication Dose Stop Time Status Admin Duloxetine HCl 60 MG TU SAT 10/19 09 AC (Cymbalta) Atorvastatin Calcium 5 MG 1700 10/18 1700 AC (Lipitor) Allopurinol 100 MG DAILY 10/18 09 AC (Zyloprim) Amlodipine Besylate 10 MG DAILY 10/18 09 AC (Norvasc) Carbidopa/Levodopa 1 TAB TID 10/18 09 AC (Sinemet 25/100MG) Insulin Detemir 8 UNITS DAILY 10/18 09 AC (Levemir) Lactulose 20 GM TID 10/18 09 AC (Enulose 20GM/30ML) Insulin Aspart 0 TIDAC 10/18 08 AC (NovoLOG) Levothyroxine Sodium 0.175 MG DAILY AC 10/18 07 AC (Synthroid) Omeprazole 40 MG DAILY AC 10/18 07 AC (Prilosec) Fentanyl Citrate 12 MCG Q3D 10/18 001 AC (Duragesic) Rifaximin 550 MG BID 10/18 001 AC 10/18 (XIFAXAN) 0115 Laboratory Tests 10/17/171817: Anion Gap 16, Estimated GFR 9 L, BUN/Creatinine Ratio 16.7, Glucose 172 H, Lactic Acid 2.4 H, Calcium 11.1 H, Phosphorus 4.0, Magnesium 2.1, Total Bilirubin 2.5 H, Direct Bilirubin 1.3 H, AST 100 H, ALT 18, Alkaline Phosphatase 385 H, Ammonia 101 H, Troponin I 0.03, Total Protein 6.8, Albumin 3.8, Globulin 3.0, Albumin/Globulin Ratio 1.3, Amylase 53, Lipase 269, PT 13.5 H, INR 1.24 H, APTT 33, CBC w Diff NO MAN DIFF REQ, RBC 3.66 L, MCV 101.8 H, MCH 33.2 H, MCHC 32.7 L, RDW 18.0 H, MPV 10.5 H, Gran % 66.9, Lymphocytes % 18.1 L, Monocytes % 13.3 H, Eosinophils % 1.5, Basophils % 0.2, Absolute Granulocytes 5.1, Absolute Lymphocytes 1.4, Absolute Monocytes 1.0 H, Absolute Eosinophils 0.1, Absolute Basophils 0 Initial ED EKG: SR WITH PACS, RAD, NSSTT CHANGES,NO CHANGE FROM PRIOR Prior EKG: unchanged Hand-Off Endorsed To: Anil Johnson MD Endorsed Time: 1899 Pending: labs (Toni Rob MD) Departure Departure Disposition: STILL A PATIENT Condition: Stable Referrals: Brandy PEREZ,Anoop Moore (PCP/Family) Departure Forms: Customer Survey General Discharge Information (Liane PEREZ,Toni Gonzalez) Departure Clinical Impression Primary Impression: Nausea Secondary Impressions: Acute kidney failure, Ascites, Hepatic encephalopathy, Liver failure, Weakness Admission Note Spoke With: Elvis Taylor MD Documentation of Exam: Documentation of any treatments & extenuating circumstances including Concerns Regarding Discharge (functional status, medication knowledge or non-compliance, living conditions, etc.) that warrant an admission rather than observation: complicated patient with liver failure/renal failure with evidence of hepatic encephalopathy... merits lactulose, gentle iv fluids, renal/liver consultation. would also consider goals of care conversation. (Anil Johnson MD) Critical Care Note Critical Care Note Critical Care Time: 30-74 min (Anil Johnson MD)
[2017-10-17 18:44] LABS: ABSOLUTE BASOPHIL COUNT 0 /CUMM (0.0-0.2); ABSOLUTE EOSINOPHIL COUNT 0.1 /CUMM (0.0-0.7); ABSOLUTE GRANULOCYTE CT 5.1 /CUMM (1.4-6.5); ABSOLUTE LYMPH COUNT 1.4 /CUMM (1.2-3.4); BASOPHIL % 0.2 % (0.0-2.0); EOSINOPHIL % 1.5 % (0-5); GRANULOCYTE % 66.9 % (42.2-75.2); HEMATOCRIT 37.3 % (37-47); MEAN CORPUSCULAR HGB 33.2 PG (27.0-31.0); MEAN CORPUSCULAR HGB CONC 32.7 G/DL (33.0-37.0); MEAN CORPUSCULAR VOLUME 101.8 FL (81.0-99.0); MEAN PLATELET VOLUME 10.5 FL (7.4-10.4); RED BLOOD CELL CT 3.66 /CUMM (4.20-5.40)
[2017-10-17 18:47] LABS: PLATELET COUNT 142 /CUMM (130-400); WHITE BLOOD CELL COUNT 7.6 /CUMM (4.8-10.8)
[2017-10-17 18:51] LABS: PT 13.5 SEC (9.4-12.5); PTT 33 SEC (25-37)
--- NOTE | 2017-10-17 21:27 | History & Physical ---
Piotr Rodríguez MD,[facility] 10/17/172125: General Information and HPI MD Statement: I have seen and personally examined ANGELA LUNA and documented this H&P. The patient is a 81 year old F who presented with a patient stated chief complaint of [change in mental status and nausea]. Source of Information: patient, family, old records Exam Limitations: unable to give history History of Present Illness: Patient is 81-year-old female with PMH of CAD, HTN, HLD, DM, hypothyroidism, ROD not on CPAP, chronic back pain, SORIA/cirrhosis, and CKD Stage IIIB/IV was BIBA to the ED for evaluation of altered mental status and N and vomiting. Patient was alert and oriented at the time of interview, ED note and tablet was also used to complete the surgery. Patient had 2 admission to [facility] in the last few months. Last admission was earlier this month, was discharged on 10/07 after management of AMS which was considered to be secondary to hyperammonia related to Cirrhosis (discharged on lactulose and rifaximin) and UTI (received ceftriaxone). After discharge he should was placed in [facility], she had paracenthesis Wednesday and 5.1 L of fluid was removed. However her abdomen was distended soon after paracentesis. This morning patient had nausea, several times of vomiting which was followed by dry heaving. According to the notes patient was also more confused compared to previous days and was transferred to ED. Patient reported chills she is chronic cold at times, but denied any fever. Patient denied any abdominal pain, diarrhea or change in bowel moment (patient is on lactulose), chills, shortness of pitting. Patient also denied any vomiting or bowel motion after came to ED. She follows Dr. Bradley and was planned to see Dr. Ortega for her kidney but never had chance to go. Allergies/Medications Allergies: Coded Allergies: Opioids - Morphine Analogues (ITCH, GI UPSET 08/03/16) Opioids-Meperidine and Related (ITCH, GI UPSET 08/03/16) Opioids-Methadone and Related (ITCH, GI UPSET 08/03/16) codeine (GI UPSET 08/03/16) morphine (ITCHING, GI UPSET 08/03/16) Home Med list Allopurinol (Zyloprim) 100 MG TABLET 1 TAB PO DAILY GOUT (Reported) Amlodipine Besylate 10 MG TABLET 1 TAB PO DAILY BP (Reported) Carbidopa/Levodopa (Sinemet 25-100 MG Tablet) 25 MG-100 MG TABLET 1 TAB PO TID GAIT/TREMOR INSTABILITY (Reported) Cyanocobalamin (Vitamin B-12) 1,000 MCG TABLET 1 TAB PO DAILY SUPPLEMENT ( Reported) Duloxetine HCl (Cymbalta) 60 MG CAPSULE.DR 1 CAP PO SAT MENTAL HEALTH (Reported) Fentanyl (Duragesic) 12 MCG/HOUR PATCH.TD72 1 PAT TOP Q3D CHRONIC BACK PAIN . Furosemide 40 MG TABLET 1 TAB PO Wednesday DIURETIC (Reported) Insulin Aspart (Novolog) 100 UNIT/ML VIAL 0 UNITS SC TIDAC DM SUGARS SS 80-150 0 UNITS 151-200 2 UNITS 201-250 3 UNITS 251-300 4 UNITS 301-350 5 UNITS 351-400 6 UNITS >400 7 UNITS CALL UR DOCTOR Insulin Detemir (Levemir) 100 UNIT/ML VIAL 6 UNIT SC DAILY DM Lactulose 10 GRAM/15 ML SOLUTION 40 ML PO TID HEPATIC FAILURE (Reported) Levothyroxine Sodium (Synthroid) 175 MCG TABLET 1 TAB PO DAILY HYPOTHYROID . Lovastatin 20 MG TABLET 1 TAB PO DAILY CHOLESTEROL (Reported) Magnesium Oxide (Magnesium) 500 MG CAPSULE 1 CAP PO DAILY SUPPLEMENT ( Reported) Mirabegron (Myrbetriq) 50 MG TAB.ER.24H 1 TAB PO DAILY BLADDER (Reported) Omeprazole 40 MG CAPSULE.DR 1 CAP PO DAILY GI (Reported) Ondansetron HCl (Zofran) 4 MG TABLET 1 TAB PO Q8P PRN NAUSEA/VOMITING ( Reported) Rifaximin (Xifaxan) 550 MG TABLET 1 TAB PO BID LIVER Past History Travel History Traveled to [place] past 21 day No Medical History Neurological: migraine, peripheral neuropathy EENT: NONE Cardiovascular: hypertension, hyperlipidemia Respiratory: NONE Gastrointestinal: GERD, portal hypertension, gastropathy varices Hepatic: cirrhosis Renal: urinary incontinence, KIDNEY FAILURE Musculoskeletal: gout, restless leg syndrome Psychiatric: depression Endocrine: diabetes, hypothyroidism Blood Disorders: thrombocytopenia Cancer(s): NONE 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 MOTHER (Mother at the age of 26 years, unknown cause). Psychosocial History Who Do You Live With? spouse Services at Home: None Primary Language: Maori ETOH Use: denies use Illicit Drug Use: denies illicit drug use Living Will? no Functional Ability ADLs Independent: dressing, eating, toileting, bathing. Ambulation: walker IADLs Independent: shopping, housework, finances, food prep, telephone, medication admin. Needs Assist: transportation. Review of Systems Review of Systems Constitutional: Reports: see HPI. Exam & Diagnostic Data Last 24 Hrs of Vital Signs/I&O Vital Signs Date Time Temp Pulse Resp B/P B/P Pulse O2 O2 Flow FiO2 Mean Ox Delivery Rate 10/17 2049 98.7 100 20 130/82 95 Room Air 10/17 1801 97.8 96 20 131/77 98 Room Air Physical Exam General Appearance Alert, Oriented X3, Cooperative, No Acute Distress, ill looking Skin No Significant Lesion Skin Temp/Moisture Exam: Warm/Dry Sepsis Skin Exam (color): Normal for Ethnicity HEENT Atraumatic, EOMI, Mucous Membr. moist/pink, icteric Neck No JVD Cardiovascular Normal S1, Normal S2 Lungs Clear to Auscultation, Normal Air Movement Abdomen distanded, no tenderness Neurological Normal Speech, Motor 4-5 in LE, asterixis Extremities +3 edema Last 24 Hrs of Labs/Unruly: Laboratory Tests 10/17/171817: Anion Gap 16, Estimated GFR 9 L, BUN/Creatinine Ratio 16.7, Glucose 172 H, Lactic Acid Pending, Calcium 11.1 H, Phosphorus Pending, Magnesium Pending, Total Bilirubin 2.5 H, Direct Bilirubin Pending, AST 100 H, ALT 18, Alkaline Phosphatase 385 H, Ammonia 101 H, Troponin I 0.03, Total Protein 6.8, Albumin 3.8, Globulin 3.0, Albumin/Globulin Ratio 1.3, Amylase 53, Lipase 269, PT 13.5 H, INR 1.24 H, APTT 33, CBC w Diff NO MAN DIFF REQ, RBC 3.66 L, MCV 101.8 H, MCH 33.2 H, MCHC 32.7 L, RDW 18.0 H, MPV 10.5 H, Gran % 66.9, Lymphocytes % 18.1 L, Monocytes % 13.3 H, Eosinophils % 1.5, Basophils % 0.2, Absolute Granulocytes 5.1, Absolute Lymphocytes 1.4, Absolute Monocytes 1.0 H, Absolute Eosinophils 0.1, Absolute Basophils 0 Assessment/Plan Assessment: Patient is 81-year-old female presented with nausea, vomiting, abdominal distention and altered mental status prior records 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, Ph Ex at admission: No fever, significantfor LA 100, saturating well in room air Labs at admission: WC 7.6, Hb 12.2, MCV 101.8, potassium 5.2, again 75, creatinine 4.5,calcium 11.1 , total bili 2.5, AST 100, alk phosphatase 385, ammonia 101,INR 1.2, UA pending, and toxicology pending Imagings at admission: NO imaging Patient was admitted to GM floor for management of following conditions: AMS Hyperamonemia electrolytes abnormalities: Hypercalcemia, hyperkalemia JOHN on CKD hepatorenal, dehydration, hypercalcemia Cirrhosis/abdominal distansion - admit to GM floor - vital signs - continue home rafiaximin and lactoluse - hold fluids - Hold paracenthesis for now considering JOHN - consider Albumin in AM - hold diuretics for now - decrease dose of alopurinol - GI consult - Nephro consult Heart healthy DVT ppx: alps and pharmacologic DNR/DNI As Ranked By This Provider Problem List: 1. Altered mental status 2. Acute on chronic kidney failure 3. Ascites Core Measures/Misc (02/14) Acute Coronary Syndrome ACS Diagnosis: No Congestive Heart Failure Congestive Heart Failure Diagnosis No Cerebrovascular Accident CVA/TIA Diagnosis: No VTE (View Protocol) VTE Risk Factors Age>40 No Mechanical VTE Prophylaxis d/t N/A MechProphylax Ordered No VTE Pharm Prophylaxis d/t NA PharmProphylax ordered Sepsis (View protocol) Sepsis Present: No Elvis Taylor 10/18/17 0227: Attending MD Review Statement Attending Statement Attending MD Statement: examined this patient, discuss w/resident/PA/PANTRY WORKER, agreed w/resident/PA/PANTRY WORKER, reviewed EMR data (avail), reviewed images, amended to note Attending Assessment/Plan: CC: Worsening of abdominal distention and leg swelling, fall. 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 She also underwent paracentesis at that time. She was discharged to [facility], she came back to ER on October 13 and underwent paracentesis. She comes back again today for increased abdominal distention, 2-3 episodes of vomiting, dry heaving since this morning. Patient always has chills just not changed much, denied any fever, she denied abdominal pain, diarrhea. Her last bowel movement was the day before. According to intermediate notes her abdominal girth was increased within 4 days so they sent her to ER. Vitals: Temperature 97.5, pulse 77, RR 16, blood pressure 142/78, saturating 98% on room air On exam: A O 3, cooperative, no acute distress, neck supple, JVD normal, no lymphadenopathy, mucosa moist, no focal neurological deficit, +3 pedal edema, no obvious skin rashes or inflammation CVS: S1-S2, irregular. RS: Clear to auscultate bilaterally. Abdomen: Soft, NT, distended, fluid thrill, capute medusae, bowel sounds present. Assessment and plan 81-year-old female with extensive past medical history multiple comorbidities especially significant for SORIA cirrhosis, decompensated with portal hypertension and ascites presented in ER for worsening abdominal distention and leg swelling even after most recent paracentesis 4 days back. She also complains of nausea and vomiting since morning, denies diarrhea, abdominal pain, fever. She has significantly distended abdomen with fluid thrill, no obvious crackles or JVD. No guarding or rigidity less likely SBP. Most recent paracentesis on October 13 (5.3 L) and october 05 (6.2 L). Patient received albumin on both occasions. On October 05 SBP was ruled out. Patient is having resistant ascites, recurring even with frequent large volume paracentesis. We will get GI opinion for further management for resistant ascites, consider discontinuing beta blockers. Now patient has elevated creatinine from 2.4-4.5, this could be secondary to diuresis, large volume paracentesis, dehydration secondary to vomiting, SBP should be ruled out, or hepatorenal syndrome. We'll obtain nephrology opinion, hold diuretics, encourage oral hydration but no IV fluids at this point. Her bilirubin is also elevated from baseline and AST is mildly elevated, we will watch closely. Her ammonia is 101, according to ER physician family stated that she is having on and off confusion, currently she is alert oriented but has mild asterixis. Her last bowel movement was the day before, obviously undertreated for encephalopathy. We will continue rifaximin and lactulose for now. Patient will require therapeutic and diagnostic paracentesis to rule out SBP but at the same time given her elevated creatinine we will await gastroenterology and nephrology opinion. We will get IR involved for therapeutic paracentesis. Consider TIPS procedure for resistant ascites. Patient follows up with GI. Patient has hypercalcemia of unclear etiology + Recurrent ascites secondary to decompensated cirrhosis + Hepatitic encephalopathy + Acute kidney injury on chronic kidney disease + Hypercalcemia + Elevated bilirubin + Hx of DM, HTN, HLD, CAD, 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, portal hypertension, ROD , hypothyroidism, gout, spinal stenosis, incontinence, CKD - admit to general med - Continue all her home medications, except spironolactone and furosemide - GI consult - Nephrology consult - Decreased dose of Levemir to 8 units daily - Continue rifaximin and lactulose - When necessary Zofran - Repeat labs in a.m. - If paracentesis is planned tomorrow, after improving creatinine then Send fluid for cell count, differential and cultures - [facility] nebs - OT PT evaluation - Check PTH, vitamin D - DVT prophylaxis Wayne PEREZ,[facility] 10/18/17 0245: Resident Review Statement Resident Statement: examined this patient, discussed with staff internist office based only, agreed with staff internist office based only, reviewed EMR data (avail), discussed with nursing Other Findings: Ms. Luna is 81-year-old woman with past medical history significant for hypertension and hyperlipidemia, coronary artery disease, 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, hypothyroidism, chronic back pain, history of stage III CKD ,recently discharged from [facility] on October 07 after she was treated for acute hepatic encephalopathy, hyperammonemia and urinary tract infection. Patient presented today with chief complaint of abdominal distention, nausea and vomiting. Patient had an ED visit from [facility] on October 13 for abdominal distention, had paracentesis 5.3 L of fluid was removed, no cytology was found in the system. Today patient was brought by ambulance from [facility] because of abdominal distention, persistent nausea and vomiting since morning, questionable confusion. Patient reported constipation, had no bowel movement for the last 2 days, denied abdominal pain, fever or chills. Patient denied any improvement of her symptoms after the paracentesis on October 13. Patient reported lethargy however denied confusion, falls, weakness or numbness. 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 Nephrology consultation in a.m. Obtain lactic acid Obtain magnesium and phosphorus Consider obtaining vitamin D Will hold off paracentesis for now pending nephrology consultation Continue home medication except for Lasix and spironolactone Continue fentanyl patch Continue renal adjusted dose of allopurinol Continue lactulose and rifaximin Accu Check, Levemir 8 units daily, NovoLog sliding scale DVT prophylaxis Alps will hold off pharmacological prophylaxis for possible paracentesis in a.m. Code DNR/DNI Diet diabetic diet with sodium restriction
[2017-10-17 23:08] VITALS: BP 142/78
[2017-10-17] MEDS ORDERED: LACTULOSE10 GM/153 PO (23:35)
--- NOTE | 2017-10-18 02:28 | Admission Certification ---
Admission Certification Certification Statement - As attending physician, I certify that at the time of - admission, based on clinical presentation, severity of - symptoms, need for further diagnostic testing and - therapeutic interventions, and risk of adverse outcomes - without in-hospital treatment, in my clinical assessment, - this patient requires an acute hospital stay for a minimum - of two nights or longer. I have also considered psychsocial - factors such as support system, advanced age, financial - issues, cognitive issues, and failed out-patient treatments, - past re-admission history, safety of patient, and lack of - compliance as applicable. Specific rationale supporting this admission is: Resistant ascites, hyperbilirubinemia, encephalopathy, acute kidney injury on chronic kidney disease
[2017-10-18 06:20] VITALS: BP 130/78
--- NOTE | 2017-10-18 06:58 | Cons- Gastroenterology ---
General Information and HPI Consulting Request Date of Consult: 10/18/17 Requested By: Elvis Taylor MD Reason for Consult: Cirrhosis. Ascities. Hepatic encephalopathy. Possible hepatorenal syndrome. Source of Information: patient, old records Exam Limitations: no limitations History of Present Illness: Ms. Luna is an 81 year old female with multiple medical problems including, but not limited to decompensated SORIA cirrhosis who has been in and out of and [facility] over the past few months for recurrent ascites, renal insufficiency, and most recently an epsiode of hepatic encephalopathy exacerbated by a UTI who was sent back into yesterday from rehab with alterations in her mental status. She underwent a paracentesis on 10/13/17 during which time about 5 liters were removed without incident. It is not clear if she got albumin or not by the report. She notes that she did have some improvement in her abdominal distention with this, but the fluid has since reaccumulated. She has some discomfort from the fluid, but she denies overt pain. She also had some bilious vomiting yesterday which hasn't persisted. She continues to have joint pains which have not changed much recently. She has been without any high fevers. She has been on lactulose and xifaxan since she was last discharged, but she notes that she has not really been having any bowel movements with the lactulose. Since presentation she has been alerrt and oriented and she has also been hemodynamicaly stable and afebrile. She was noted to have a worsening GFR to 9 (previously around 20-30) for which nephrology has been called but she hasn 't yet recieved any albumin or IVF yet. Allergies/Medications Allergies: Coded Allergies: Opioids - Morphine Analogues (ITCH, GI UPSET 08/03/16) Opioids-Meperidine and Related (ITCH, GI UPSET 08/03/16) Opioids-Methadone and Related (ITCH, GI UPSET 08/03/16) codeine (GI UPSET 08/03/16) morphine (ITCHING, GI UPSET 08/03/16) Home Med List: Allopurinol (Zyloprim) 100 MG TABLET 1 TAB PO DAILY GOUT (Reported) Amlodipine Besylate 10 MG TABLET 1 TAB PO DAILY BP (Reported) Carbidopa/Levodopa (Sinemet 25-100 MG Tablet) 25 MG-100 MG TABLET 1 TAB PO TID GAIT/TREMOR INSTABILITY (Reported) Cyanocobalamin (Vitamin B-12) 1,000 MCG TABLET 1 TAB PO DAILY SUPPLEMENT ( Reported) Duloxetine HCl (Cymbalta) 60 MG CAPSULE.DR 1 CAP PO Wed MENTAL HEALTH (Reported) Fentanyl (Duragesic) 12 MCG/HOUR PATCH.TD72 1 PAT TOP Q3D CHRONIC BACK PAIN . Furosemide 40 MG TABLET 1 TAB PO Wednesday DIURETIC (Reported) Insulin Aspart (Novolog) 100 UNIT/ML VIAL 0 UNITS SC TIDAC DM SUGARS SS 80-150 0 UNITS 151-200 2 UNITS 201-250 3 UNITS 251-300 4 UNITS 301-350 5 UNITS 351-400 6 UNITS >400 7 UNITS CALL UR DOCTOR Insulin Detemir (Levemir) 100 UNIT/ML VIAL 6 UNIT SC DAILY DM Lactulose 10 GRAM/15 ML SOLUTION 40 ML PO TID HEPATIC FAILURE (Reported) Lactulose 20 GRAM/30 ML SOLUTION 20 GM PO Q6H hyperammonemia Levothyroxine Sodium (Synthroid) 175 MCG TABLET 1 TAB PO DAILY HYPOTHYROID . Lovastatin 20 MG TABLET 1 TAB PO DAILY CHOLESTEROL (Reported) Magnesium Oxide (Magnesium) 500 MG CAPSULE 1 CAP PO DAILY SUPPLEMENT ( Reported) Mirabegron (Myrbetriq) 50 MG TAB.ER.24H 1 TAB PO DAILY BLADDER (Reported) Omeprazole 40 MG CAPSULE.DR 1 CAP PO DAILY GI (Reported) Ondansetron HCl (Zofran) 4 MG TABLET 1 TAB PO Q8P PRN NAUSEA/VOMITING ( Reported) Rifaximin (Xifaxan) 550 MG TABLET 1 TAB PO BID LIVER Current Medications: Current Medications Sig/Jennifer Start time Last Medication Dose Route Stop Time Status Admin Allopurinol 100 MG DAILY 10/18 09 AC PO Amlodipine Besylate 10 MG DAILY 10/18 09 AC PO Atorvastatin Calcium 5 MG 1700 10/18 1700 AC PO Carbidopa/Levodopa 1 TAB TID 10/18 09 AC PO Duloxetine HCl 60 MG 10/19 09 AC PO Fentanyl Citrate 12 MCG Q3D 10/18 0015 AC TOP Insulin Aspart 0 TIDAC 10/18 0800 AC SC Insulin Detemir 8 UNITS DAILY 10/18 09 AC SC Lactulose 20 GM TID 10/18 899 AC PO Lactulose 0 .ST-MED ONE 10/17 2050 DC PO Lactulose 20 GM ONCE ONE 10/17 2030 DC 10/17 PO 10/17 Levothyroxine Sodium 0.175 MG DAILY AC 10/18 07 AC 10/18 PO 533 Omeprazole 40 MG DAILY AC 10/18 07 AC 10/18 PO 05 Ondansetron HCl 0 .STK-MED ONE 10/17 183 DC .ROUTE Ondansetron HCl 4 MG ONCE ONE 10/17 1800 DC 10/17 IV 10/17 Rifaximin 550 MG BID 10/18 0015 AC 10/18 PO 0115 Past History Travel History Traveled to [place] past 21 day No Medical History Blood Transfusion Hx: No Neurological: migraine, peripheral neuropathy EENT: NONE Cardiovascular: hypertension, hyperlipidemia Respiratory: NONE Gastrointestinal: GERD, portal hypertension, gastropathy varices Hepatic: cirrhosis Renal: urinary incontinence, KIDNEY FAILURE Musculoskeletal: gout, restless leg syndrome Psychiatric: depression Endocrine: diabetes, hypothyroidism Blood Disorders: thrombocytopenia Cancer(s): NONE 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 MOTHER (Mother at the age of 26 years, unknown cause). Psychosocial History Who Do You Live With? spouse Services at Home: None Primary Language: Setswana Smoking Status: Never Smoked ETOH Use: denies use Illicit Drug Use: denies illicit drug use Living Will? no Functional Ability ADLs Independent: dressing, eating, toileting, bathing. Ambulation: walker IADLs Independent: shopping, housework, finances, food prep, telephone, medication admin. Needs Assist: transportation. Review of Systems Review of Systems Constitutional: Reports: chills, malaise, weakness. Denies: fever. EENTM: Denies: no symptoms. Cardiovascular: Reports: edema, peripheral edema. Denies: chest pain. Respiratory: Denies: no symptoms. GI: Reports: see HPI. Genitourinary: Denies: discharge, dysuria, frequency. Musculoskeletal: Reports: back pain, joint pain, muscle pain. Denies: joint swelling. Skin: Denies: no symptoms. Neurological/Psychological: Reports: confusion. Hematologic/Endocrine: Denies: no symptoms. Immunologic/Allergic: Denies: no symptoms. All Other Systems: Reviewed and Negative Exam & Diagnostic Data Vital Signs and I&O Vital Signs Date Time Temp Pulse Resp B/P B/P Pulse O2 O2 Flow FiO2 Mean Ox Delivery Rate 10/19 619 98.4 105 20 130/78 95 Room Air 10/17 2308 97.5 77 16 142/78 92 10/17 2050 98.7 100 20 130/82 95 Room Air 10/17 1802 97.8 96 20 131/77 98 Room Air Intake & Output 10/18 04010/17 04010/16 040 Intake Total 240 0 Output Total 150 0 Balance 90 0 Intake, Oral 240 0 Number 0 Bowel Movements Output, Urine 150 0 Patient 210 lb Weight Weight Bed scale Measurement Method Physical Exam General Appearance: well developed/nourished, no apparent distress, alert, comfortable Head: atraumatic, normal appearance Eyes: Bilateral: normal appearance. Ears, Nose, Throat: normal pharynx, normal ENT inspection Neck: normal inspection, supple, full range of motion Respiratory: normal breath sounds, chest non-tender, decreased breath sounds Cardiovascular: regular rate/rhythm Gastrointestinal: normal bowel sounds, soft, non-tender, distention Rectal: deferred Back: normal inspection, normal range of motion Extremities: pedal edema Neurologic/Psych: no motor/sensory deficits, awake, alert, oriented x 3, no asterixis Cranial Nerves: normal hearing Skin: intact, normal color, warm/dry Results Pertinent Lab Results: Laboratory Tests 10/18 10/17 0315 1818 Chemistry Sodium (137 - 145 mmol/L) 139 Potassium (3.5 - 5.1 mmol/L) 5.2 H Chloride (98 - 107 mmol/L) 102 Carbon Dioxide (22 - 30 mmol/L) 22 Anion Gap (5 - 16) 16 BUN (7 - 17 mg/dL) 75 H Creatinine (0.5 - 1.0 mg/dL) 4.5 H Estimated GFR (>60 ml/min) 9 L BUN/Creatinine Ratio (7 - 25 %) 16.7 Glucose (65 - 99 mg/dL) 172 H Lactic Acid (0.7 - 2.1 mmol/L) 1.3 2.4 H Calcium (8.4 - 10.2 mg/dL) 11.1 H Phosphorus (2.5 - 4.5 mg/dL) 4.0 Magnesium (1.6 - 2.3 mg/dL) 2.1 Total Bilirubin (0.2 - 1.3 mg/dL) 2.5 H Direct Bilirubin (< 0.4 mg/dL) 1.3 H AST (14 - 36 U/L) 100 H ALT (9 - 52 U/L) 18 Alkaline Phosphatase (<127 U/L) 385 H Ammonia (9 - 30 umol/L) 101 H Troponin I (< 0.11 ng/ml) 0.03 Total Protein (6.3 - 8.2 g/dL) 6.8 Albumin (3.5 - 5.0 g/dL) 3.8 Globulin (1.9 - 4.2 gm/dL) 3.0 Albumin/Globulin Ratio (1.1 - 2.2 %) 1.3 Amylase (30 - 110 U/L) 53 Lipase (23 - 300 U/L) 269 25-OH Vitamin D Total (30 - 100 ng/ml) 46.6 PTH Intact (18.4 - 80.1 pg/ML) 112.2 H Coagulation PT (9.4 - 12.5 SEC) 13.5 H INR (0.90 - 1.19) 1.24 H APTT (25 - 37 SEC) 33 Hematology CBC w Diff NO MAN DIFF REQ WBC (4.8 - 10.8 /CUMM) 7.6 RBC (4.20 - 5.40 /CUMM) 3.66 L Hgb (12.0 - 16.0 G/DL) 12.2 Hct (37 - 47 %) 37.3 MCV (81.0 - 99.0 FL) 101.8 H MCH (27.0 - 31.0 PG) 33.2 H MCHC (33.0 - 37.0 G/DL) 32.7 L RDW (11.5 - 14.5 %) 18.0 H Plt Count (130 - 400 /CUMM) 142 MPV (7.4 - 10.4 FL) 10.5 H Gran % (42.2 - 75.2 %) 66.9 Lymphocytes % (20.5 - 51.1 %) 18.1 L Monocytes % (1.7 - 9.3 %) 13.3 H Eosinophils % (0 - 5 %) 1.5 Basophils % (0.0 - 2.0 %) 0.2 Absolute Granulocytes (1.4 - 6.5 /CUMM) 5.1 Absolute Lymphocytes (1.2 - 3.4 /CUMM) 1.4 Absolute Monocytes (0.10 - 0.60 /CUMM) 1.0 H Absolute Eosinophils (0.0 - 0.7 /CUMM) 0.1 Absolute Basophils (0.0 - 0.2 /CUMM) 0 Imaging/Other Studies: SERVICE DATE: 10/13/17 EXAM TYPE: US - US-PARACENTESIS CLINICAL HISTORY: This patient is a 81 year old female with cirrhosis and recurrent ascites, who is referred to Interventional Radiology for ultrasound-guided paracentesis. PROCEDURE: Ultrasound-guided paracentesis. PHYSICIANS: Dr. Brice Prieto (attending). MEDICATIONS: 10 mL of 1% lidocaine SQ. COMPLICATIONS: None ESTIMATED BLOOD LOSS: <5 mL SPECIMENS: None IMPLANT: None. SITE MARKING: As part of the preprocedure verification policy, a site marking procedure was initiated. Due to the nature the procedure, the insertion site could not be predetermined thus invoking the policy of exemption to site laterality and marking. Insertion site marking was performed in the procedure room in conjunction with imaging confirmation. PROCEDURE NOTE: Informed consent was obtained from the patient prior to the procedure. During this process, the procedure and potential alternatives were explained along with the intended outcome and benefits. The risks of the procedure, including the possibility of an unsuccessful procedure, as well as the risk of not doing the procedure, were discussed. The patient was given the opportunity to ask questions regarding the procedure and appeared competent to make decisions. A signed consent form documenting this discussion was placed in the medical record. A time-out procedure was performed. Appropriate preprocedure medical history and imaging studies were reviewed. The patient was brought to the ultrasound room and placed in the supine position. A time-out procedure was performed. Ultrasound images of the abdomen were obtained to localize a moderate collection of ascites. Images were permanently saved to the record. An area of the right lower quadrant was prepped and draped in the standard sterile fashion. All elements of maximal sterile barrier technique followed including use of cap, mask, sterile gown, sterile gloves, a sterile full body drape and hand hygiene. Also followed skin preparation with 2% chlorhexidine for cutaneous antisepsis, and sterile ultrasound preparation with sterile gel and probe cover when applicable. 10 mL of 1% lidocaine was used to obtain local anesthesia of the skin and deeper tissues. A standard small-bore needle was introduced to sample fluid and demonstrated a safe access route. There was no evidence of traversing adjacent organs or vascular structures. A 6-Fr Uuzw-[id number]-Kweysfko closed needle/catheter system was utilized for access. 5.3 L of clear straw-colored fluid was aspirated before drainage ceased. The catheter was removed and sterile dressing applied. The patient tolerated the procedure well without evidence of complications. FINDINGS: Moderate simple abdominal ascites as detailed above. IMPRESSION: Successful ultrasound-guided therapeutic paracentesis. PLAN: The patient was stable after the procedure. The patient will be discharged home. Assessment/Plan Assessment/Recommendations: Assessment: Ms. Luna is an 81 year old female with decompensated SORIA cirrhosis with ascites readmitted last night with alterations in her mental status and worsening renal insufficiency. Her mental status is currently improved and she is without an obvious source of infection to explain the exacerbation of her encephalopathy so I suspect she may not have been getting enough lactulose considering she notes that she really hasn't been having much in the way of bowel movements with what she is on now. A diagnostic paracentesis should still be done to rule out SBP, but would hold off on a large volume paracentesis until this has been ruled out. Of concern is her worsening renal function which could be from pre-renal azotemia, but as she hasn't been having diarrhea from the lactulose I'm not certain what that else would of caused a pre-renal state which makes the worsening renal function concerning for possible hepatorenal syndrome. She still should have a trial of volume expansion though before this diagnosis can be established though. It is also possible that this just may be the progression of her underlying renal insufficiency from HTN, DM etc, but she has lost 50% of her GFR since her last admission a few weeks ago which is obviously concerning. If she does in fact have HRS it would likely be catastrophic as she is not a transplant candidate and current treatments for this (octreotide, midodrine, albumin etc) are generally only a bridge to transplant. Recommendations: 1. Start albumin 25 gram IV q8hr 2. Low sodium diet (< 2 grams a day) 3. Check a diagnostic paracentesis to rule out SBP 4. Continue xifaxan and lactulose should be titrated to 2-3 soft BMs a day and held for diarrhea 5. Follow mental status by PE (ie. the ammonia level doesn't need to be followed ) 6. Check urine lytes (in particular a urine sodium) 7. Follow up renal recommendations and if creatinine fails to improve with volume expansion with albumin and urine Na < 10 which would be c/w HRS would then give consideration for using octreotide with midodrine. 8. Quezada culture, but would observe off of antibiotics for now 9. Follow daily lfts, inr, lytes and renal function I will continue to follow this patient and make further recommendations based on her clinical course and results of repeat blood work and the diagnostic paracentesis. Problem List: 1. Portal hypertension 2. Acute kidney failure 3. Cirrhosis Copies To: Timmy PEREZ,Piyush Feliz; Brandy PEREZ,Anoop Moore Consult Acknowledgment - Thank you for your consult request.
--- NOTE | 2017-10-18 07:57 | PN- Housestaff ---
Subjective Follow-up For: AMS Hyperamonemia electrolytes abnormalities: Hypercalcemia, hyperkalemia JOHN on CKD hepatorenal, dehydration, hypercalcemia Cirrhosis/abdominal distansion Subjective: patient is less confused than on admission. has less nausea and vomiting. Denies abdominal pain. Has ongoing abdominal extension. No chest pain, minimal shortness of breath. Afebrile. Patient to have paracentesis -diagnostic- today. Review of Systems Constitutional: Reports: weakness. EENTM: Reports: no symptoms. Cardiovascular: Reports: edema. Respiratory: Reports: short of breath. Gastrointestinal: Reports: nausea. Genitourinary: Reports: no symptoms. Musculoskeletal: Reports: no symptoms. Skin: Reports: no symptoms. Neurological/Psychological: Reports: cognitive dysfunction. Hematologic/Endocrine: Reports: no symptoms. Objective Last 24 Hrs of Vital Signs/I&O Vital Signs Date Time Temp Pulse Resp B/P B/P Pulse O2 O2 Flow FiO2 Mean Ox Delivery Rate 10/18 2229 97.8 90 20 130/70 92 10/18 1400 98.0 90 20 128/70 93 Room Air 10/18 0906 98.4 105 20 130/78 10/18 0620 98.4 105 20 130/78 95 Room Air 10/17 2308 97.5 77 16 142/78 92 Intake & Output 10/18 1600 10/18 0800 10/18 0000 Intake Total 780 240 0 Output Total 150 0 Balance 780 90 0 Intake, IV 100 Intake, Oral 680 240 0 Number 0 Bowel Movements Output, Urine 150 0 Patient 210 lb Weight Weight Bed scale Measurement Method Physical Exam General Appearance: Alert, Cooperative, No Acute Distress Skin: No Rashes, No Breakdown, No Significant Lesion Skin Temp/Moisture Exam: Warm/Dry Sepsis Skin Exam (color): Normal for Ethnicity HEENT: Atraumatic, EOMI, Mucous Membr. moist/pink Neck: Supple, No JVD Cardiovascular: Regular Rate, Normal S1, Normal S2 Lungs: Clear to Auscultation Abdomen: Normal Bowel Sounds, Soft, No Masses, PATIENT HAS TENDERNESS TO PALPATION IN THE UPPER LEFT QUADRANT. SHE HAS SHIFTING DULLNESS AND FLUID WAVE. Neurological: Normal Speech, FLAPPING TREMOR NOTED Extremities: No Clubbing, No Cyanosis, Normal Pulses, BILATERAL PITTING EDEMA 2+ Vascular: Normal Pulses, Pulses Symmetrical Sepsis Peripheral Pulse Location: Radial Current Medications: Current Medications Sig/Jennifer Start time Last Medication Dose Route Stop Time Status Admin Albumin Human 12.5 GM Q8 10/18 0804 10/19 IV 0556 Allopurinol 100 MG DAILY 10/18 0900 10/19 PO 1010 Amlodipine Besylate 10 MG DAILY 10/18 0900 10/19 PO 1011 Atorvastatin Calcium 5 MG 1700 10/18 1700 AC 10/18 PO 1754 Carbidopa/Levodopa 1 TAB TID 10/18 0900 10/19 PO 1010 Duloxetine HCl 60 MG TUES THURS SAT 10/19 0900 10/19 PO 1010 Fentanyl Citrate 12 MCG Q3D 10/18 0015 [facility] Insulin Aspart 0 TIDAC 10/18 0800 10/19 SC 1010 Insulin Detemir 8 UNITS DAILY 10/18 09 10/19 SC 1009 Lactulose 20 GM TID 10/18 09 10/19 PO 1011 Levothyroxine Sodium 0.175 MG DAILY AC 10/18 0700 10/19 PO 0555 Lidocaine 1 ML .STK-MED ONE 10/18 1252 DC IJ 10/18 1253 Omeprazole 40 MG DAILY 10/18 0700 10/19 PO 0555 Ondansetron HCl 4 MG ONCE ONE 10/18 2129 DC 10/18 IV 10/18 Rifaximin 550 MG BID 10/18 001 10/19 PO 1010 Last 24 Hrs of Lab/Unruly Results Last 24 Hrs of Labs/Mics: Laboratory Tests 10/19/17 0800: Anion Gap 14, Estimated GFR 10 L, BUN/Creatinine Ratio 18.6, Total Bilirubin 2.4 H, Direct Bilirubin 1.5 H, AST 82 H, ALT 30, Alkaline Phosphatase 366 H, Total Protein 6.3, Albumin 3.6, PT 14.0 H, INR 1.28 H, CBC w Diff NO MAN DIFF REQ, RBC 2.99 L, MCV 101.7 H, MCH 33.6 H, MCHC 33.1, RDW 18.0 H, MPV 10.6 H , Gran % 55.7, Lymphocytes % 25.9, Monocytes % 14.1 H, Eosinophils % 3.1, Basophils % 1.2, Absolute Granulocytes 3.6, Absolute Lymphocytes 1.7, Absolute Monocytes 0.9 H, Absolute Eosinophils 0.2, Absolute Basophils 0.1 Assessment/Plan Assessment: Patient is 81-year-old female presented with nausea, vomiting, abdominal distention and altered mental status. Patient was recently admitted here with similar complaints, at the time found to have a UTI which had likely precipitated an episode of acute hepatic encephalopathy. Patient had abdominal paracentesis done as well, 6 L of transudative fluid was removed. SBP was ruled out. She was put on lactulose as well and over time, her AMS resolved. She was discharged on rifaxamin. She had continued therapeutic paracentesis outpatient. 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, Ph Ex at admission: No fever, significantfor [place] 100, saturating well in room air Labs at admission: WC 7.6, Hb 12.2, MCV 101.8, potassium 5.2, again 75, creatinine 4.5,calcium 11.1 , total bili 2.5, AST 100, alk phosphatase 385, ammonia 101, INR 1.2 Imagings at admission: NO imaging Problem List: AMS likely secondary to hyperammonemia secondary to SORIA cirrhosis Electrolytes abnormalities: Hypercalcemia, hyperkalemia JOHN on CKD: secondary to hepatorenal syndrome, dehydration Plan: AMS likely secondary to hyperammonemia secondary to SORIA cirrhosis or hypercalcemia (the below): Patient was started on lactulose and continued on her Xifaxan. She was found to have ammonia level of 101 on admission. This morning liver function tests have decreased numbers - total bili level was found to have decreased from 2.5 to 1.9, direct bilirubin decreased from 1.3 to 1.0, AST decreased from 100 to 80, alkaline phosphatase from 385 to 335. Total protein decreased from 6.8 to 5.8, albumin from 3.8 to 3.0. Patient is afebrile with no white blood cell count but we will send her today for a diagnostic paracentesis for SBP. Gastroenterology saw the patient and suggested a low sodium less than 2 g diet and to continue the Xifaxan and lactulose, titrate 2-3 soft bowel movements a day with holding parameters for diarrhea. -Vital signs every shift -Start albumin 25 IV q8 -Follow mental status with physical exam and not with repeat ammonia levels. -Follow evans cultures -Follow LFTs, INR's, BEP, CBCs -Hold fluids at this time -Hold large volume paracentesis for JOHN Electrolytes abnormalities: Hypercalcemia, hyperkalemia -Monitor levels and can dose potassium binder and/or Sensipar if needed -Parathyroid hormone level is 112 with elevated calcium, this has been true in previous admissions as well. -The patient also has an elevated alkaline phosphatase level which could very well be liver or could be an element of bone breakdown. Hypercalcemia can also be secondary to malignancy. -Can do alkaline phosphatase isoenzymes, outpatient workup with referral to endocrinology for potential hyperparathyroidism. JOHN on CKD: secondary to hepatorenal syndrome, dehydration. Serum creatinine has recently been in the mid 2's but was 4.5 yesterday -Draw urine lytes -Appreciate nephrology consult -Monitor in's and out's, patient is incontinent of urine and will most likely need straight cath as needed. Gout history: -Due to JOHN, decrease dose of allopurinol Heart healthy DVT ppx: alps and pharmacologic DNR/DNI Problem List: 1. Hepatic encephalopathy 2. Liver failure 3. Nausea Pain Ratin Pain Location: na Pain Goal: Pain 4 or less Pain Plan: prn Tomorrow's Labs & Rationales: lft inr cbc bep
[2017-10-18 08:48] LABS: ABSOLUTE BASOPHIL COUNT 0 /CUMM (0.0-0.2); ABSOLUTE EOSINOPHIL COUNT 0.1 /CUMM (0.0-0.7); ABSOLUTE GRANULOCYTE CT 3.5 /CUMM (1.4-6.5); ABSOLUTE LYMPH COUNT 1.4 /CUMM (1.2-3.4); ABSOLUTE MONOCYTE COUNT 0.8 /CUMM (0.10-0.60); BASOPHIL % 0.4 % (0.0-2.0); EOSINOPHIL % 2.4 % (0-5); GRANULOCYTE % 59.1 % (42.2-75.2); MEAN CORPUSCULAR HGB 33.8 PG (27.0-31.0); MEAN CORPUSCULAR HGB CONC 33.3 G/DL (33.0-37.0); MEAN CORPUSCULAR VOLUME 101.5 FL (81.0-99.0); MEAN PLATELET VOLUME 10.1 FL (7.4-10.4); RBC DISTRIBUTION WIDTH 17.9 % (11.5-14.5); WHITE BLOOD CELL COUNT 5.9 /CUMM (4.8-10.8)
[2017-10-18 09:22] LABS: HEMATOCRIT 31.5 % (37-47)
[2017-10-18 10:33] LABS: PLATELET COUNT 85 /CUMM (130-400)
--- NOTE | 2017-10-18 12:43 | PN- Att Addend ---
Attending Addendum Attending Brief Note Patient seen and examined. Plan of care discussed with the medical team and the patient. Available lab work and radiology test reports were reviewed. Patient complains of being tired. She appears sleepy and falls back asleep very easily during questioning. She complains of for moderate belly discomfort and also bilateral leg pains. She denies any difficulty breathing fever or chills. Exam: General: Patient awake but lethargic and sleepy and oriented without any distress CVS: S1 plus S2 without any murmur or gallops Chest: Few scattered crepitation without any wheeze. There is no respiratory distress. 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 oriented without any focal neuro deficit and follows commands appropriately Extremities: 2+ bilateral edema; no clubbing or cyanosis noted ; no asterixis noted Assessment * Recurrent ascites secondary to decompensated cirrhosis- patient status post diagnostic ascitic tap today; based on chemistry labs the fluid appears to be a transudate * Hepatitic encephalopathy * Acute kidney injury on chronic kidney disease,suspected hepatorenal syndrome * Hypercalcemia * Elevated bilirubin * Hx of DM, HTN, HLD, CAD, * 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 * Follow-up culture report in ascitic fluid Current Medications Sig/Jennifer Start time Last Medication Dose Route Stop Time Status Admin Albumin Human 12.5 GM Q8 10/18 0804 AC IV Allopurinol 100 MG DAILY 10/18 899 AC 10/18 PO 905 Amlodipine Besylate 10 MG DAILY 10/18 09 AC 10/18 PO 09 Atorvastatin Calcium 5 MG 1700 10/18 1700 AC PO Carbidopa/Levodopa 1 TAB TID 10/18 899 AC 10/18 PO 09 Duloxetine HCl 60 MG TUES THURS SAT 10/19 09 AC PO Fentanyl Citrate 12 MCG Q3D 10/18 0015 AC TOP Insulin Aspart 0 TIDAC 10/18 0800 AC SC Insulin Detemir 8 UNITS DAILY 10/18 09 AC 10/18 SC 09 Lactulose 20 GM TID 10/18 09 AC 10/18 PO 0905 Lactulose 0 .STK-MED ONE 10/17 2050 DC PO Lactulose 20 GM ONCE ONE 10/17 2029 DC 10/17 PO 10/17 Levothyroxine Sodium 0.175 MG DAILY AC 10/18 0700 AC 10/18 PO 05 Omeprazole 40 MG DAILY AC 10/18 0700 AC 10/18 PO 0534 Ondansetron HCl 0 .STK-MED ONE 10/17 183 DC .ROUTE Ondansetron HCl 4 MG ONCE ONE 10/17 1800 DC 10/17 IV 10/17 Rifaximin 550 MG BID 10/18 0015 AC 10/18 PO 0906 Laboratory Tests 10/18/17 1000: Fluid WBC Pending, Fld Total RBCs Counted Pending 10/18/17 1000: Fluid Glucose 144, Fluid Total Protein < 2.0, Fluid Albumin < 1.0, Fluid LDH 143 , Fluid Amylase < 30 10/18/17 0705: Anion Gap 10, Estimated GFR 9 L, BUN/Creatinine Ratio 17.1, Total Bilirubin 1.9 H, Direct Bilirubin 1.0 H, AST 80 H, ALT 32, Alkaline Phosphatase 335 H, Total Protein 5.8 L, Albumin 3.0 L, CBC w Diff NO MAN DIFF REQ, RBC 3.10 L, MCV 101.5 H, MCH 33.8 H, MCHC 33.3, RDW 17.9 H, MPV 10.1, Gran % 59.1, Lymphocytes % 23.7, Monocytes % 14.4 H, Eosinophils % 2.4, Basophils % 0.4, Absolute Granulocytes 3.5, Absolute Lymphocytes 1.4, Absolute Monocytes 0.8 H, Absolute Eosinophils 0.1, Absolute Basophils 0 10/18/17 0315: Lactic Acid 1.3 10/17/171817: Anion Gap 16, Estimated GFR 9 L, BUN/Creatinine Ratio 16.7, Glucose 172 H, Lactic Acid 2.4 H, Calcium 11.1 H, Phosphorus 4.0, Magnesium 2.1, Total Bilirubin 2.5 H, Direct Bilirubin 1.3 H, AST 100 H, ALT 18, Alkaline Phosphatase 385 H, Ammonia 101 H, Troponin I 0.03, Total Protein 6.8, Albumin 3.8, Globulin 3.0, Albumin/Globulin Ratio 1.3, Amylase 53, Lipase 269, 25-OH Vitamin D Total 46.6, PTH Intact 112.2 H, PT 13.5 H, INR 1.24 H, APTT 33, CBC w Diff NO MAN DIFF REQ, RBC 3.66 L, MCV 101.8 H, MCH 33.2 H, MCHC 32.7 L, RDW 18.0 H, MPV 10.5 H, Gran % 66.9, Lymphocytes % 18.1 L, Monocytes % 13.3 H, Eosinophils % 1.5, Basophils % 0.2, Absolute Granulocytes 5.1, Absolute Lymphocytes 1.4, Absolute Monocytes 1.0 H, Absolute Eosinophils 0.1, Absolute Basophils 0 Microbiology 10/18 UNK BODY FLUID: Body Fluid Culture - RECD 10/18 UNK BODY FLUID: Gram Stain - RECD Vital Signs Date Time Temp Pulse Resp B/P B/P Pulse O2 O2 Flow FiO2 Mean Ox Delivery Rate 10/18 0906 98.4 105 20 130/78 10/18 0620 98.4 105 20 130/78 95 Room Air 10/17 2308 97.5 77 16 142/78 92 10/17 2050 98.7 100 20 130/82 95 Room Air 10/17 1802 97.8 96 20 131/77 98 Room Air Intake & Output 10/18 1600 10/18 0800 10/18 0000 Intake Total 240 0 Output Total 150 0 Balance 90 0 Intake, Oral 240 0 Number 0 Bowel Movements Output, Urine 150 0 Patient 210 lb Weight Weight Bed scale Measurement Method
[2017-10-18 14:00] VITALS: BP 128/70
--- NOTE | 2017-10-18 14:46 | ULTRASOUND REPORT ---
CLINICAL HISTORY: This patient is a 81 years old Female with cirrhosis and recurrent ascites, who is referred to Interventional Radiology for ultrasound-guided diagnostic paracentesis. PROCEDURE: Ultrasound-guided diagnostic paracentesis. PHYSICIANS: Dr. Brice Prieto (attending). MEDICATIONS: 10 mL of 1% lidocaine SQ. COMPLICATIONS: None ESTIMATED BLOOD LOSS: <5 mL SPECIMENS: Samples were sent for analysis as requested. IMPLANT: None. SITE MARKING: As part of the preprocedure verification policy, a site marking procedure was initiated. Due to the nature the procedure, the insertion site could not be predetermined thus invoking the policy of exemption to site laterality and marking. Insertion site marking was performed in the procedure room in conjunction with imaging confirmation. PROCEDURE NOTE: Informed consent was obtained from the patient prior to the procedure. During this process, the procedure and potential alternatives were explained along with the intended outcome and benefits. The risks of the procedure, including the possibility of an unsuccessful procedure, as well as the risk of not doing the procedure, were discussed. The patient was given the opportunity to ask questions regarding the procedure and appeared competent to make decisions. A signed consent form documenting this discussion was placed in the medical record. A time-out procedure was performed. Appropriate preprocedure medical history and imaging studies were reviewed. The patient was brought to the ultrasound room and placed in the supine position. A time-out procedure was performed. Ultrasound images of the abdomen were obtained to localize a moderate collection of ascites. Images were permanently saved to the record. An area of the right lower quadrant was prepped and draped in the standard sterile fashion. All elements of maximal sterile barrier technique followed including use of cap, mask, sterile gown, sterile gloves, a sterile full body drape and hand hygiene. Also followed skin preparation with 2% chlorhexidine for cutaneous antisepsis, and sterile ultrasound preparation with sterile gel and probe cover when applicable. 10 mL of 1% lidocaine was used to obtain local anesthesia of the skin and deeper tissues. A standard small-bore needle was introduced to sample fluid and demonstrated a safe access route. There was no evidence of traversing adjacent organs or vascular structures. A 5 Pakistani Yueh needle/catheter was utilized for access. 60 mL of clear straw-colored fluid was aspirated. And samples were sent for analysis as requested. The catheter was removed and sterile dressing applied. The patient tolerated the procedure well without evidence of complications. FINDINGS: Moderate simple abdominal ascites as detailed above. IMPRESSION: Successful ultrasound-guided diagnostic paracentesis. PLAN: The patient was stable after the procedure. The patient will be transferred back to her medical room.
--- NOTE | 2017-10-18 18:03 | Cons- Nephrology ---
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 She has required frequent paracenteses for rapidly reaccumulating ascites recently associated with hepatic encephalopathy. It is unclear whether she received any intravenous albumin with her last paracentesis. She was admitted now because of bilious vomiting yesterday which was self-limited as well as reaccumulation of her ascitic fluid. Serum ammonia level was high on admission and her mentation has improved on lactulose and rifaximin despite persistent hyperammonemia (101). Serum creatinine has recently been in the mid 2's but was 4.5 yesterday and today prompting this consultation request. It should be noted that she is also mildly hypercalcemic which was also true as an outpatient in July. Vitamin D level is within normal limits and PTH level is slightly elevated. She has not been hypotensive or febrile. As yet, there are no urine studies available. She underwent a diagnostic paracentesis earlier today. Past medical history is as noted above. Medications: See below Allergies: Opioids Family history: Father is from a CVA; mother at 26no details but may have had history of ESRD; 4 children alive and well, 1 son at age 28 motorcycle accident Social history: Never smoked, denies alcohol or drug abuse. Allergies/Medications Allergies: Coded Allergies: Opioids - Morphine Analogues (ITCH, GI UPSET 08/03/16) Opioids-Meperidine and Related (ITCH, GI UPSET 08/03/16) Opioids-Methadone and Related (ITCH, GI UPSET 08/03/16) codeine (GI UPSET 08/03/16) morphine (ITCHING, GI UPSET 08/03/16) Home Med List: Allopurinol (Zyloprim) 100 MG TABLET 1 TAB PO DAILY GOUT (Reported) Amlodipine Besylate 10 MG TABLET 1 TAB PO DAILY BP (Reported) Carbidopa/Levodopa (Sinemet 25-100 MG Tablet) 25 MG-100 MG TABLET 1 TAB PO TID GAIT/TREMOR INSTABILITY (Reported) Cyanocobalamin (Vitamin B-12) 1,000 MCG TABLET 1 TAB PO DAILY SUPPLEMENT ( Reported) Duloxetine HCl (Cymbalta) 60 MG CAPSULE.DR 1 CAP PO SAT MENTAL HEALTH (Reported) Fentanyl (Duragesic) 12 MCG/HOUR PATCH.TD72 1 PAT TOP Q3D CHRONIC BACK PAIN . Furosemide 40 MG TABLET 1 TAB PO Wednesday DIURETIC (Reported) Insulin Aspart (Novolog) 100 UNIT/ML VIAL 0 UNITS SC TIDAC DM SUGARS SS 80-150 0 UNITS 151-200 2 UNITS 201-250 3 UNITS 251-300 4 UNITS 301-350 5 UNITS 351-400 6 UNITS >400 7 UNITS CALL UR DOCTOR Insulin Detemir (Levemir) 100 UNIT/ML VIAL 6 UNIT SC DAILY DM Lactulose 10 GRAM/15 ML SOLUTION 40 ML PO TID HEPATIC FAILURE (Reported) Levothyroxine Sodium (Synthroid) 175 MCG TABLET 1 TAB PO DAILY HYPOTHYROID . Lovastatin 20 MG TABLET 1 TAB PO DAILY CHOLESTEROL (Reported) Magnesium Oxide (Magnesium) 500 MG CAPSULE 1 CAP PO DAILY SUPPLEMENT ( Reported) Mirabegron (Myrbetriq) 50 MG TAB.ER.24H 1 TAB PO DAILY BLADDER (Reported) Omeprazole 40 MG CAPSULE. 1 CAP PO DAILY GI (Reported) Ondansetron HCl (Zofran) 4 MG TABLET 1 TAB PO Q8P PRN NAUSEA/VOMITING ( Reported) Rifaximin (Xifaxan) 550 MG TABLET 1 TAB PO BID LIVER Review of Systems Review of Systems: Gen.: Appetite poor, gains weight with reaccumulation of ascites Skin: No rash or jaundice HEENT: No visual or hearing disturbances, no discharge Cardiopulmonary: No shortness of breath, cough, chest pain, orthopnea GI: Nausea and vomiting yesterday (see HPI), no abdominal pain but frequently uncomfortable due to bloating : No dysuria, hematuria or other symptoms referable to the urinary tract Musculoskeletal: Chronic back pain and frequent arthralgias Neuro: Weakness, altered mental status - see HPI Past History Travel History Traveled to [place] past 21 day No Medical History Blood Transfusion Hx: No Neurological: migraine, peripheral neuropathy EENT: NONE Cardiovascular: hypertension, hyperlipidemia Respiratory: NONE Gastrointestinal: GERD, portal hypertension, gastropathy varices Hepatic: cirrhosis Renal: urinary incontinence, KIDNEY FAILURE Musculoskeletal: gout, restless leg syndrome Psychiatric: depression Endocrine: diabetes, hypothyroidism Blood Disorders: thrombocytopenia Cancer(s): NONE 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 MOTHER (Mother at the age of 26 years, unknown cause). Psychosocial History Who Do You Live With? spouse Services at Home: None Primary Language: Slovak Smoking Status: Never Smoked ETOH Use: denies use Illicit Drug Use: denies illicit drug use Living Will? no Functional Ability ADLs Independent: dressing, eating, toileting, bathing. Ambulation: walker IADLs Independent: shopping, housework, finances, food prep, telephone, medication admin. Needs Assist: transportation. Exam & Diagnostic Data Vital Signs and I&O Vital Signs Date Time Temp Pulse Resp B/P B/P Pulse O2 O2 Flow FiO2 Mean Ox Delivery Rate 10/18 1400 98.0 90 20 128/70 93 Room Air 10/18 0906 98.4 105 20 130/78 10/18 0620 98.4 105 20 130/78 95 Room Air 10/17 2308 97.5 77 16 142/78 92 10/17 2050 98.7 100 20 130/82 95 Room Air 10/17 1802 97.8 96 20 131/77 98 Room Air Intake & Output 10/18 1600 10/18 0400 10/17 1600 10/17 0400 10/16 1600 10/16 0400 Intake Total 240 0 Output Total 150 0 Balance 90 0 Intake, Oral 240 0 Number 0 Bowel Movements Output, Urine 150 0 Patient 210 lb Weight Weight Bed scale Measurement Method Physical Exam: General: Chronically ill-appearing, elderly white female in NAD Skin: No rash or jaundice HEENT: Conjunctivae pale, sclerae anicteric, mucous membranes moist Neck: Without masses or thyromegaly, no supraclavicular or cervical adenopathy Chest: Clear to P&A Heart: Regular rate and rhythm without S3 or rub Abdomen: Soft with shifting dullness consistent with ascites, no palpable masses or organomegaly Extremities: 2+ lower extremity edema bilaterally Neuro: Awake and alert, no focal findings, + asterixis, no myoclonus Assessment/Plan Assessment/Recommendations Assessment: 81-year-old woman with acute on chronic kidney disease in the setting of cryptogenic cirrhosis with ascites requiring frequent paracenteses. The differential diagnosis is primarily between prerenal azotemia and hepatorenal syndrome. Acute tubular necrosis less likely. I am not sure what to make of her mild hypercalcemia which on the 1 hands suggest the possibility of an underlying malignancy. On the other hand, the mildly elevated PTH level in the face of hypercalcemia suggests at least an element of primary hyperparathyroidism. In either case, further evaluation is probably not warranted. Recommendations: 1. Urine sodium with fractional excretion of sodium 2. Suggest trial of 25% albumin 12.5 g IV every 6 hours 8 doses 3. Continue to monitor chemistries, intake and output 4. Follow-up on results of diagnostic paracentesis Thank you. We will follow along with you.
[2017-10-18 22:29] VITALS: BP 130/70
[2017-10-19 05:44] VITALS: BP 120/68
--- NOTE | 2017-10-19 08:31 | PN- Housestaff ---
Subjective Follow-up For: -AMS likely secondary to hyperammonemia secondary to SORIA cirrhosis -Electrolytes abnormalities: Hypercalcemia, hyperkalemia -JOHN on CKD: secondary to hepatorenal syndrome, dehydration Subjective: Patient is alert and oriented x3. She notes less nausea and is eating, tolerating diet well. She continues to have mild abdominal pain on palpation and has marked distension. She is afebrile, stable vitals. She is incontinent of urine and is being straight cathed as needed for urine draws. Review of Systems Constitutional: Reports: no symptoms. EENTM: Reports: no symptoms. Cardiovascular: Reports: no symptoms. Respiratory: Reports: no symptoms. Gastrointestinal: Reports: abdominal pain, distention, nausea. Genitourinary: Reports: no symptoms. Musculoskeletal: Reports: no symptoms. Skin: Reports: no symptoms. Neurological/Psychological: Reports: no symptoms. Objective Last 24 Hrs of Vital Signs/I&O Vital Signs Date Time Temp Pulse Resp B/P B/P Pulse O2 O2 Flow FiO2 Mean Ox Delivery Rate 10/19 1011 122/60 10/19 0544 97.4 99 20 120/68 96 Room Air 10/18 2229 97.8 90 20 130/70 92 10/18 1400 98.0 90 20 128/70 93 Room Air Intake & Output 10/19 1600 10/19 0800 10/19 0000 Intake Total 240 240 Output Total Balance 240 240 Intake, Oral 240 240 Physical Exam General Appearance: Alert, Oriented X3, Cooperative, No Acute Distress Skin: No Rashes, No Breakdown, No Significant Lesion Skin Temp/Moisture Exam: Warm/Dry Sepsis Skin Exam (color): Normal for Ethnicity HEENT: Atraumatic, EOMI, Mucous Membr. moist/pink Cardiovascular: Regular Rate, Normal S1, Normal S2 Lungs: Clear to Auscultation, Normal Air Movement Abdomen: Normal Bowel Sounds, Soft, No Masses, distended abdomen with fluid wave and shifting dullness Neurological: Normal Speech Extremities: No Clubbing, No Cyanosis, Normal Pulses, No Tenderness/Swelling, bilateral lower pitting edema 2+ Vascular: Normal Pulses, Pulses Symmetrical Sepsis Peripheral Pulse Location: Radial Current Medications: Current Medications Sig/Jennifer Start time Last Medication Dose Route Stop Time Status Admin Albumin Human 12.5 GM Q8 10/18 0804 AC 10/19 IV 0556 Allopurinol 100 MG DAILY 10/18 0900 AC 10/19 PO 1010 Amlodipine Besylate 10 MG DAILY 10/18 0900 AC 10/19 PO 1011 Atorvastatin Calcium 5 MG 1700 10/18 1700 AC 10/18 PO 1754 Carbidopa/Levodopa 1 TAB TID 10/18 0900 10/19 PO 1010 Duloxetine HCl 60 MG TUES THURS SAT 10/19 0900 AC 10/19 PO 1010 Fentanyl Citrate 12 MCG Q3D 10/18 0015 TOP Insulin Aspart 0 TIDAC 10/18 0800 10/19 SC 1010 Insulin Detemir 8 UNITS DAILY 10/18 0900 10/19 SC 1009 Lactulose 20 GM TID 10/18 0900 AC 10/19 PO 1011 Levothyroxine Sodium 0.175 MG DAILY AC 10/18 0700 10/19 PO 0555 Lidocaine 1 ML .STK-MED ONE 10/18 1252 DC IJ 10/18 1253 Omeprazole 40 MG DAILY AC 10/18 0700 AC 10/19 PO 0555 Ondansetron HCl 4 MG ONCE ONE 10/18 2129 DC 10/18 IV 10/18 Rifaximin 550 MG BID 10/18 0015 10/19 PO 1010 Last 24 Hrs of Lab/Unruly Results Last 24 Hrs of Labs/Mics: Laboratory Tests 10/19/17 1120: Urine Color Pending, Urine Clarity Pending, Urine pH Pending, Ur Specific [place] Pending, Urine Protein Pending, Urine Ketones Pending, Urine Nitrite Pending, Urine Bilirubin Pending, Urine Urobilinogen Pending, Ur Leukocyte Esterase Pending, Ur Microscopic Pending, Urine Hemoglobin Pending, Urine Glucose Pending 10/19/17 1120: Methadone Screen Pending, Barbiturate Screen Pending, Ur Phencyclidine Scrn Pending, Amphetamines Screen Pending, U Benzodiazepines Scrn Pending, Urine Cocaine Screen Pending, Urine Cannabis Screen Pending, Ur Random Creatinine Pending, Ur Random Sodium Pending, Ur Random Potassium Pending, Fraction Sodium Excret Pending 10/19/17 0800: Anion Gap 14, Estimated GFR 10 L, BUN/Creatinine Ratio 18.6, Total Bilirubin 2.4 H, Direct Bilirubin 1.5 H, AST 82 H, ALT 30, Alkaline Phosphatase 366 H, Total Protein 6.3, Albumin 3.6, PT 14.0 H, INR 1.28 H, CBC w Diff NO MAN DIFF REQ, RBC 2.99 L, MCV 101.7 H, MCH 33.6 H, MCHC 33.1, RDW 18.0 H, MPV 10.6 H , Gran % 55.7, Lymphocytes % 25.9, Monocytes % 14.1 H, Eosinophils % 3.1, Basophils % 1.2, Absolute Granulocytes 3.6, Absolute Lymphocytes 1.7, Absolute Monocytes 0.9 H, Absolute Eosinophils 0.2, Absolute Basophils 0.1 10/18/17 1421: Ur Random Creatinine Cancelled, Ur Random Sodium Cancelled, Ur Random Potassium Cancelled, Fraction Sodium Excret Cancelled Assessment/Plan Assessment: Patient is 81-year-old female presented with nausea, vomiting, abdominal distention and altered mental status. Patient was recently admitted here with similar complaints, at the time found to have a UTI which had likely precipitated an episode of acute hepatic encephalopathy. Patient had abdominal paracentesis done as well, 6 L of transudative fluid was removed. SBP was ruled out. She was put on lactulose as well and over time, her AMS resolved. She was discharged on rifaxamin. She had continued therapeutic paracentesis outpatient. 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, Ph Ex at admission: No fever, significantfor WI 100, saturating well in room air Labs at admission: WC 7.6, Hb 12.2, MCV 101.8, potassium 5.2, again 75, creatinine 4.5,calcium 11.1 , total bili 2.5, AST 100, alk phosphatase 385, ammonia 101, INR 1.2 Imagings at admission: NO imaging Problem List: AMS likely secondary to hyperammonemia secondary to SORIA cirrhosis Electrolytes abnormalities: Hypercalcemia, hyperkalemia JOHN on CKD: secondary to hepatorenal syndrome, dehydration Plan: AMS likely secondary to hyperammonemia secondary to SORIA cirrhosis or hypercalcemia (the below): Patient was started on lactulose and continued on her Xifaxan. She was found to have ammonia level of 101 on admission. Yesterday liver function tests decreased numbers - total bili level was found to have decreased from 2.5 to 1.9, direct bilirubin decreased from 1.3 to 1.0, AST decreased from 100 to 80, alkaline phosphatase from 385 to 335. Today LFTs are up again. Total protein and albumin have increased, patient is being suppliemented albumin at this moment. Patient is afebrile with no white blood cell count but we will send her today for a diagnostic paracentesis for SBP. Gastroenterology saw the patient and suggested a low sodium less than 2 g diet and to continue the Xifaxan and lactulose, titrate 2-3 soft bowel movements a day with holding parameters for diarrhea. Patient also has a history of low platelet counts presumably secondary to her liver disease. INR 1.24 yesterday, 1.28 today, stable. -Diagnostic paracentesis showed no SBP and ascites secondary to portal hypertension with SAAG > 1.1 -Vital signs every shift -Start albumin 25 IV q8 -Follow mental status with physical exam and not with repeat ammonia levels. -Follow evans cultures -Follow LFTs, INR's, BEP, CBCs (hb and plt counts) -Hold fluids at this time -Hold large volume paracentesis for JOHN Electrolytes abnormalities: Hypercalcemia, hyperkalemia -Monitor levels and can dose potassium binder and/or Sensipar if needed -Today potassium is 5.9, yesterday 5.1. Kayexalate and limit dietary potassium. -Parathyroid hormone level is 112 with elevated calcium, this has been true in previous admissions as well. -The patient also has an elevated alkaline phosphatase level which could very well be liver or could be an element of bone breakdown. Hypercalcemia can also be secondary to malignancy. -Can do alkaline phosphatase isoenzymes, outpatient workup with referral to endocrinology for potential hyperparathyroidism. JOHN on CKD: secondary to hepatorenal syndrome, dehydration. Serum creatinine has recently been in the mid 2's but was 4.5 yesterday, today 4.4. -Draw urine lytes -Appreciate nephrology consult -Monitor in's and out's, patient is incontinent of urine and will most likely need straight cath as needed. Gout history: -Due to JOHN, decrease dose of allopurinol Heart healthy DVT ppx: alps and pharmacologic DNR/DNI Problem List: 1. Ascites 2. Liver failure 3. Hepatic encephalopathy 4. Acute on chronic kidney failure Pain Ratin Pain Location: na Pain Goal: Remain pain free Pain Plan: na Tomorrow's Labs & Rationales: cbc bep lft inr
[2017-10-19 08:49] LABS: ABSOLUTE BASOPHIL COUNT 0.1 /CUMM (0.0-0.2); ABSOLUTE EOSINOPHIL COUNT 0.2 /CUMM (0.0-0.7); ABSOLUTE GRANULOCYTE CT 3.6 /CUMM (1.4-6.5); ABSOLUTE LYMPH COUNT 1.7 /CUMM (1.2-3.4); ABSOLUTE MONOCYTE COUNT 0.9 /CUMM (0.10-0.60); BASOPHIL % 1.2 % (0.0-2.0); EOSINOPHIL % 3.1 % (0-5); GRANULOCYTE % 55.7 % (42.2-75.2); HEMATOCRIT 30.4 % (37-47); MEAN CORPUSCULAR HGB 33.6 PG (27.0-31.0); MEAN CORPUSCULAR HGB CONC 33.1 G/DL (33.0-37.0); MEAN CORPUSCULAR VOLUME 101.7 FL (81.0-99.0); MEAN PLATELET VOLUME 10.6 FL (7.4-10.4); PLATELET COUNT 91 /CUMM (130-400); RED BLOOD CELL CT 2.99 /CUMM (4.20-5.40); WHITE BLOOD CELL COUNT 6.4 /CUMM (4.8-10.8)
--- NOTE | 2017-10-19 10:53 | PN- Att Addend ---
Attending Addendum Attending Brief Note Patient seen and examined. Plan of care discussed with the medical team and the patient. Available lab work and radiology test reports were reviewed. Patient' s is at bedside today. Patient seemed to be more awake and alert today and she is oriented. She denies any difficulty breathing fever or chills. She has not moved bowels yet. Exam: General: Patient awake slightly lethargic and oriented without any distress CVS: S1 plus S2 without any murmur or gallops Chest: Few scattered crepitation without any wheeze. There is no respiratory distress. Abdomen: Soft and distended but non-tender, bowel sound present, no guarding or rebound RN ANTE PARTUM: Awake alert oriented without any focal neuro deficit and follows commands appropriately Extremities: 1+ bilateral edema; no clubbing or cyanosis noted ; no asterixis noted Assessment * Recurrent ascites secondary to decompensated cirrhosis- patient status post diagnostic ascitic tap today; based on chemistry labs the fluid appears to be a transudate and culture reports are negative so far * Hepatitic encephalopathy- improved despite not moving any bowel motions * Acute kidney injury on chronic kidney disease,suspected hepatorenal syndrome * Hypercalcemia * Elevated bilirubin * Hx of DM, HTN, HLD, CAD, * 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, * portal hypertension, * ROD, * hypothyroidism, * gout, * spinal stenosis, * CKD * Hyperkalemia- likely due to worsening renal failure Plan * Continue albumin * Low potassium diet * Consider giving Kayexalate 1 dose; recheck potassium 4 PM today * continue rifaximin and lactulose; lactulose does many to increase since patient has no motor bowel * recheck labs in am * monitor mental status closely Current Medications Sig/Jennifer Start time Last Medication Dose Route Stop Time Status Admin Albumin Human 12.5 GM Q8 10/18 0804 AC 10/19 IV 0556 Allopurinol 100 MG DAILY 10/18 0900 AC 10/19 PO 1010 Amlodipine Besylate 10 MG DAILY 10/18 09 AC 10/19 PO 1011 Atorvastatin Calcium 5 MG 1700 10/18 1700 AC 10/18 PO 1754 Carbidopa/Levodopa 1 TAB TID 10/18 0900 AC 10/19 PO 1010 Duloxetine HCl 60 MG TUES THURS SAT 10/19 0900 AC 10/19 PO 1010 Fentanyl Citrate 12 MCG Q3D 10/18 0015 AC TOP Insulin Aspart 0 TIDAC 10/18 0800 10/19 SC 1010 Insulin Detemir 8 UNITS DAILY 10/18 0900 10/19 SC 1009 Lactulose 20 GM TID 10/18 09 AC 10/19 PO 1011 Levothyroxine Sodium 0.175 MG DAILY AC 10/18 0700 AC 10/19 PO 0555 Lidocaine 1 ML .STK-MED ONE 10/18 1252 DC IJ 10/18 1253 Omeprazole 40 MG DAILY AC 10/18 07 AC 10/19 PO 0555 Ondansetron HCl 4 MG ONCE ONE 10/18 2129 DC 10/18 IV 10/18 Rifaximin 550 MG BID 10/18 0015 AC 10/19 PO 1010 Laboratory Tests 10/19/17 0800: Anion Gap 14, Estimated GFR 10 L, BUN/Creatinine Ratio 18.6, Total Bilirubin 2.4 H, Direct Bilirubin 1.5 H, AST 82 H, ALT 30, Alkaline Phosphatase 366 H, Total Protein 6.3, Albumin 3.6, PT 14.0 H, INR 1.28 H, CBC w Diff NO MAN DIFF REQ, RBC 2.99 L, MCV 101.7 H, MCH 33.6 H, MCHC 33.1, RDW 18.0 H, MPV 10.6 H , Gran % 55.7, Lymphocytes % 25.9, Monocytes % 14.1 H, Eosinophils % 3.1, Basophils % 1.2, Absolute Granulocytes 3.6, Absolute Lymphocytes 1.7, Absolute Monocytes 0.9 H, Absolute Eosinophils 0.2, Absolute Basophils 0.1 10/18/17 1000: Fluid WBC 188 H, Fld Mesothelial Cells , Fld Total RBCs Counted 525 H 10/18/17 1000: Lymphocytes 22, % Normal PMNs 20, Fluid Glucose 144, Fluid Total Protein < 2.0, Fluid Albumin < 1.0, Fluid LDH 143, Fluid Amylase < 30 10/18/17 0705: Anion Gap 10, Estimated GFR 9 L, BUN/Creatinine Ratio 17.1, Total Bilirubin 1.9 H, Direct Bilirubin 1.0 H, AST 80 H, ALT 32, Alkaline Phosphatase 335 H, Total Protein 5.8 L, Albumin 3.0 L, CBC w Diff NO MAN DIFF REQ, RBC 3.10 L, MCV 101.5 H, MCH 33.8 H, MCHC 33.3, RDW 17.9 H, MPV 10.1, Gran % 59.1, Lymphocytes % 23.7, Monocytes % 14.4 H, Eosinophils % 2.4, Basophils % 0.4, Absolute Granulocytes 3.5, Absolute Lymphocytes 1.4, Absolute Monocytes 0.8 H, Absolute Eosinophils 0.1, Absolute Basophils 0 10/18/17 0315: Lactic Acid 1.3 10/17/177: Methadone Screen Cancelled, Barbiturate Screen Cancelled, Ur Phencyclidine Scrn Cancelled, Amphetamines Screen Cancelled, U Benzodiazepines Scrn Cancelled, Urine Cocaine Screen Cancelled, Urine Cannabis Screen Cancelled 10/17/17 1818: Anion Gap 16, Estimated GFR 9 L, BUN/Creatinine Ratio 16.7, Glucose 172 H, Lactic Acid 2.4 H, Calcium 11.1 H, Phosphorus 4.0, Magnesium 2.1, Total Bilirubin 2.5 H, Direct Bilirubin 1.3 H, AST 100 H, ALT 18, Alkaline Phosphatase 385 H, Ammonia 101 H, Troponin I 0.03, Total Protein 6.8, Albumin 3.8, Globulin 3.0, Albumin/Globulin Ratio 1.3, Amylase 53, Lipase 269, 25-OH Vitamin D Total 46.6, PTH Intact 112.2 H, PT 13.5 H, INR 1.24 H, APTT 33, CBC w Diff NO MAN DIFF REQ, RBC 3.66 L, MCV 101.8 H, MCH 33.2 H, MCHC 32.7 L, RDW 18.0 H, MPV 10.5 H, Gran % 66.9, Lymphocytes % 18.1 L, Monocytes % 13.3 H, Eosinophils % 1.5, Basophils % 0.2, Absolute Granulocytes 5.1, Absolute Lymphocytes 1.4, Absolute Monocytes 1.0 H, Absolute Eosinophils 0.1, Absolute Basophils 0 10/17/17 1800: Urine Color Cancelled, Urine Clarity Cancelled, Urine pH Cancelled, Ur Specific [place] Cancelled, Urine Protein Cancelled, Urine Ketones Cancelled, Urine Nitrite Cancelled, Urine Bilirubin Cancelled, Urine Urobilinogen Cancelled, Ur Leukocyte Esterase Cancelled, Ur Microscopic Cancelled, Urine Hemoglobin Cancelled, Urine Glucose Cancelled Microbiology 10/18 UNK BODY FLUID: Body Fluid Culture - RES 10/18 UNK BODY FLUID: Gram Stain - RES Vital Signs Date Time Temp Pulse Resp B/P B/P Pulse O2 O2 Flow FiO2 Mean Ox Delivery Rate 10/19 1011 122/60 10/19 0544 97.4 99 20 120/68 96 Room Air 10/18 2229 97.8 90 20 130/70 92 10/18 1400 98.0 90 20 128/70 93 Room Air Intake & Output 10/19 1600 10/19 0800 10/19 0000 Intake Total 240 240 Output Total Balance 240 240 Intake, Oral 240 240
[2017-10-19 13:41] VITALS: BP 128/68
--- NOTE | 2017-10-19 15:06 | PN- Gastroenterology ---
Assessment/Plan GI Assessment/Recommendations: Assessment: Ms. Luna is an 81-year-old female with decompensated Jackson/cirrhosis currently admitted with hepatic encephalopathy of uncertain etiology, but I suspect may be secondary to under dosing with lactulose as to date her workup has been negative for infection including a negative diagnostic paracentesis, and she is without obvious joint abnormalities or GI bleeding. Her kidney function has not had any significant improvement after 1 day of albumin and her urine sodium of less than 5 is suggestive of possible underlying hepatorenal syndrome. Of note, the patient's expressed an interest in performing a TIPS which was discussed in the office, however considering she has been admitted multiple times of hepatic encephalopathy and I would try to hold off on this as a TIPS would likely make that worse. Recommendations: 1. Give 1 more day of albumin at current dose. 2. Follow-up renal recommendations. 3. If renal function does not significant improve with continued intravascular volume repletion with albumin consideration will then be given to start midodrine and octreotide in the next 24-48 hours. 4. Would arrange for a large-volume paracentesis with 25-50 g of albumin being administered for the a.m. 5. Continue Xifaxan and lactulose and titrate lactulose to 2-3 soft bowel movements a day and would hold if she develops diarrhea. 6. Follow renal function and electrolytes and treat as indicated I will continue to follow this patient and make further recommendations based on her clinical course and results of repeat blood work. Subjective Subjective: pt feels nauseous and did have some bilious vomiting. she notes that she has not yet had a bowel movement, but she denies any significant confusion. Objective Vital Signs and I&Os Vital Signs Date Time Temp Pulse Resp B/P B/P Pulse O2 O2 Flow FiO2 Mean Ox Delivery Rate 10/19 1341 98.0 97 20 128/68 97 Room Air 10/19 1011 122/60 10/19 0544 97.4 99 20 120/68 96 Room Air 10/18 2229 97.8 90 20 130/70 92 Intake & Output 10/19 1600 10/19 0400 10/18 0400 10/17 0400 Intake Total 746 024 1281 0 Output Total 100 150 0 Balance 140 240 870 0 Intake, IV 100 Intake, Oral 240 240 920 0 Number 0 Bowel Movements Output, Urine 100 150 0 Patient 210 lb Weight Weight Bed scale Measurement Method Physical Exam General Appearance: well developed/nourished, no apparent distress, comfortable Head: atraumatic Neck: normal inspection, supple Respiratory: normal breath sounds, chest non-tender, decreased breath sounds Cardiovascular: regular rate/rhythm Abdomen: soft, non-tender, distention Extremities: pedal edema Current Medications: Current Medications Sig/Jennifer Start time Last Medication Dose Route Stop Time Status Admin Albumin Human 12.5 GM Q8 10/18 0804 10/19 IV 0556 Allopurinol 100 MG DAILY 10/18 0900 AC 10/19 PO 1010 Amlodipine Besylate 10 MG DAILY 10/18 0900 AC 10/19 PO 1011 Atorvastatin Calcium 5 MG 1700 10/18 1700 AC 10/18 PO 1754 Carbidopa/Levodopa 1 TAB TID 10/18 0900 10/19 PO 1426 Duloxetine HCl 60 MG TUES THURS SAT 10/19 0900 10/19 PO 1010 Fentanyl Citrate 12 MCG Q3D 10/18 0015 [facility] Insulin Aspart 0 TIDAC 10/18 0800 10/19 SC 1335 Insulin Detemir 8 UNITS DAILY 10/18 0900 10/19 SC 1009 Lactulose 20 GM TID 10/18 0900 10/19 PO 1426 Levothyroxine Sodium 0.175 MG DAILY AC 10/18 0700 AC 10/19 PO 0555 Omeprazole 40 MG DAILY AC 10/18 0700 10/19 PO 0555 Ondansetron HCl 4 MG ONCE ONE 10/19 1300 DC 10/19 IV 10/19 1301 1334 Ondansetron HCl 4 MG ONCE ONE 10/18 2130 DC 10/18 IV 10/18 2131 2131 Rifaximin 550 MG BID 10/18 0015 10/19 PO 1010 Results Pertinent Lab Results: Laboratory Tests 10/19 10/19 1120 1120 Toxicology Urine Opiates Screen (>2000 NG/ML) < 100 Methadone Screen (>300 NG/ML) 65 Barbiturate Screen (>200 NG/ML) < 60 Ur Phencyclidine Scrn (>25 NG/ML) < 6.00 Amphetamines Screen (>1000 NG/ML) < 100 U Benzodiazepines Scrn (>200 NG/ML) < 85 Urine Cocaine Screen (>300 NG/ML) < 50 Urine Cannabis Screen (>50 NG/ML) < 5.00 Urines Urine Color (YEL,AMB,STR) YEL Urine Clarity (CLEAR) CLEAR Urine pH (5.0 - 8.0) 6.0 Ur Specific [place] (1.001 - 1.035) 1.020 Urine Protein (NEG,<30 MG/DL) NEG Urine Ketones (NEG) NEG Urine Nitrite (NEG) NEG Urine Bilirubin (NEG) NEG@ICTO Urine Urobilinogen (0.1 - 1.0 EU/dl) 0.2 Ur Leukocyte Esterase (NEG) SMALL H Ur Microscopic SEDIMENT EXAMINED Urine WBC (0 - 2 /HPF) 5-10 H Ur Epithelial Cells (NONE,FEW) RENAL H Urine Bacteria (NEG/NONE) FEW H Micro UA Comment BUDDING YEAST H Urine Hemoglobin (NEG) NEG Ur Random Creatinine (mg/dL) 171.2 Ur Random Sodium (30 - 90 mmol/L) < 5 L Ur Random Potassium (mmol/L) 34.6 Fraction Sodium Excret (<1% %) Urine Glucose (N MG/DL) NEG 10/19 10/18 10/18 0800 1421 UNK Chemistry Sodium (137 - 145 mmol/L) 137 Potassium (3.5 - 5.1 mmol/L) 5.9 H Chloride (98 - 107 mmol/L) 103 Carbon Dioxide (22 - 30 mmol/L) 20 L Anion Gap (5 - 16) 14 BUN (7 - 17 mg/dL) 82 H Creatinine (0.5 - 1.0 mg/dL) 4.4 H Estimated GFR (>60 ml/min) 10 L BUN/Creatinine Ratio (7 - 25 %) 18.6 Total Bilirubin (0.2 - 1.3 mg/dL) 2.4 H Direct Bilirubin (< 0.4 mg/dL) 1.5 H AST (14 - 36 U/L) 82 H ALT (9 - 52 U/L) 30 Alkaline Phosphatase (<127 U/L) 366 H Total Protein (6.3 - 8.2 g/dL) 6.3 Albumin (3.5 - 5.0 g/dL) 3.6 Coagulation PT (9.4 - 12.5 SEC) 14.0 H INR (0.90 - 1.19) 1.28 H Hematology CBC w Diff NO MAN DIFF REQ WBC (4.8 - 10.8 /CUMM) 6.4 RBC (4.20 - 5.40 /CUMM) 2.99 L Hgb (12.0 - 16.0 G/DL) 10.1 L Hct (37 - 47 %) 30.4 L MCV (81.0 - 99.0 FL) 101.7 H MCH (27.0 - 31.0 PG) 33.6 H MCHC (33.0 - 37.0 G/DL) 33.1 RDW (11.5 - 14.5 %) 18.0 H Plt Count (130 - 400 /CUMM) 91 L MPV (7.4 - 10.4 FL) 10.6 H Gran % (42.2 - 75.2 %) 55.7 Lymphocytes % (20.5 - 51.1 %) 25.9 Monocytes % (1.7 - 9.3 %) 14.1 H Eosinophils % (0 - 5 %) 3.1 Basophils % (0.0 - 2.0 %) 1.2 Absolute Granulocytes (1.4 - 6.5 /CUMM) 3.6 Absolute Lymphocytes (1.2 - 3.4 /CUMM) 1.7 Absolute Monocytes (0.10 - 0.60 /CUMM) 0.9 H Absolute Eosinophils (0.0 - 0.7 /CUMM) 0.2 Absolute Basophils (0.0 - 0.2 /CUMM) 0.1 Other Body Source Fluid WBC (0 - 5 /CUMM) 188 H Fld Mesothelial Cells (%) Fld Total RBCs Counted (0 /CUMM) 525 H Urines Ur Random Creatinine Cancelled Ur Random Sodium Cancelled Ur Random Potassium Cancelled Fraction Sodium Excret Cancelled 10/18 10/18 10/18 [facility] 0705 0315 Chemistry Sodium (137 - 145 mmol/L) 135 L Potassium (3.5 - 5.1 mmol/L) 5.1 Chloride (98 - 107 mmol/L) 104 Carbon Dioxide (22 - 30 mmol/L) 22 Anion Gap (5 - 16) 10 BUN (7 - 17 mg/dL) 77 H Creatinine (0.5 - 1.0 mg/dL) 4.5 H Estimated GFR (>60 ml/min) 9 L BUN/Creatinine Ratio (7 - 25 %) 17.1 Lactic Acid (0.7 - 2.1 mmol/L) 1.3 Total Bilirubin (0.2 - 1.3 mg/dL) 1.9 H Direct Bilirubin (< 0.4 mg/dL) 1.0 H AST (14 - 36 U/L) 80 H ALT (9 - 52 U/L) 32 Alkaline Phosphatase (<127 U/L) 335 H Total Protein (6.3 - 8.2 g/dL) 5.8 L Albumin (3.5 - 5.0 g/dL) 3.0 L Hematology CBC w Diff NO MAN DIFF REQ WBC (4.8 - 10.8 /CUMM) 5.9 RBC (4.20 - 5.40 /CUMM) 3.10 L Hgb (12.0 - 16.0 G/DL) 10.5 L Hct (37 - 47 %) 31.5 L MCV (81.0 - 99.0 FL) 101.5 H MCH (27.0 - 31.0 PG) 33.8 H MCHC (33.0 - 37.0 G/DL) 33.3 RDW (11.5 - 14.5 %) 17.9 H Plt Count (130 - 400 /CUMM) 85 L MPV (7.4 - 10.4 FL) 10.1 Gran % (42.2 - 75.2 %) 59.1 Lymphocytes % (20.5 - 51.1 %) 23.7 Monocytes % (1.7 - 9.3 %) 14.4 H Eosinophils % (0 - 5 %) 2.4 Basophils % (0.0 - 2.0 %) 0.4 Absolute Granulocytes (1.4 - 6.5 /CUMM) 3.5 Absolute Lymphocytes (1.2 - 3.4 /CUMM) 1.4 Lymphocytes (%) 22 Absolute Monocytes (0.10 - 0.60 /CUMM) 0.8 H Absolute Eosinophils (0.0 - 0.7 /CUMM) 0.1 Absolute Basophils (0.0 - 0.2 /CUMM) 0 % Normal PMNs (%) 20 Other Body Source Fluid Glucose (mg/dL) 144 Fluid Total Protein (g/dL) < 2.0 Fluid Albumin (g/dL) < 1.0 Fluid LDH (U/L) 143 Fluid Amylase (U/L) < 30 10/17 10/17 10/17 2127 1818 1800 Chemistry Sodium (137 - 145 mmol/L) 139 Potassium (3.5 - 5.1 mmol/L) 5.2 H Chloride (98 - 107 mmol/L) 102 Carbon Dioxide (22 - 30 mmol/L) 22 Anion Gap (5 - 16) 16 BUN (7 - 17 mg/dL) 75 H Creatinine (0.5 - 1.0 mg/dL) 4.5 H Estimated GFR (>60 ml/min) 9 L BUN/Creatinine Ratio (7 - 25 %) 16.7 Glucose (65 - 99 mg/dL) 172 H Lactic Acid (0.7 - 2.1 mmol/L) 2.4 H Calcium (8.4 - 10.2 mg/dL) 11.1 H Phosphorus (2.5 - 4.5 mg/dL) 4.0 Magnesium (1.6 - 2.3 mg/dL) 2.1 Total Bilirubin (0.2 - 1.3 mg/dL) 2.5 H Direct Bilirubin (< 0.4 mg/dL) 1.3 H AST (14 - 36 U/L) 100 H ALT (9 - 52 U/L) 18 Alkaline Phosphatase (<127 U/L) 385 H Ammonia (9 - 30 umol/L) 101 H Troponin I (< 0.11 ng/ml) 0.03 Total Protein (6.3 - 8.2 g/dL) 6.8 Albumin (3.5 - 5.0 g/dL) 3.8 Globulin (1.9 - 4.2 gm/dL) 3.0 Albumin/Globulin Ratio (1.1 - 2.2 %) 1.3 Amylase (30 - 110 U/L) 53 Lipase (23 - 300 U/L) 269 25-OH Vitamin D Total (30 - 100 ng/ml) 46.6 PTH Intact (18.4 - 80.1 pg/ML) 112.2 H Coagulation PT (9.4 - 12.5 SEC) 13.5 H INR (0.90 - 1.19) 1.24 H APTT (25 - 37 SEC) 33 Hematology CBC w Diff NO MAN DIFF REQ WBC (4.8 - 10.8 /CUMM) 7.6 RBC (4.20 - 5.40 /CUMM) 3.66 L Hgb (12.0 - 16.0 G/DL) 12.2 Hct (37 - 47 %) 37.3 MCV (81.0 - 99.0 FL) 101.8 H MCH (27.0 - 31.0 PG) 33.2 H MCHC (33.0 - 37.0 G/DL) 32.7 L RDW (11.5 - 14.5 %) 18.0 H Plt Count (130 - 400 /CUMM) 142 MPV (7.4 - 10.4 FL) 10.5 H Gran % (42.2 - 75.2 %) 66.9 Lymphocytes % (20.5 - 51.1 %) 18.1 L Monocytes % (1.7 - 9.3 %) 13.3 H Eosinophils % (0 - 5 %) 1.5 Basophils % (0.0 - 2.0 %) 0.2 Absolute Granulocytes (1.4 - 6.5 /CUMM) 5.1 Absolute Lymphocytes (1.2 - 3.4 /CUMM) 1.4 Absolute Monocytes (0.10 - 0.60 /CUMM) 1.0 H Absolute Eosinophils (0.0 - 0.7 /CUMM) 0.1 Absolute Basophils (0.0 - 0.2 /CUMM) 0 Toxicology Methadone Screen Cancelled Barbiturate Screen Cancelled Ur Phencyclidine Scrn Cancelled Amphetamines Screen Cancelled U Benzodiazepines Scrn Cancelled Urine Cocaine Screen Cancelled Urine Cannabis Screen Cancelled Urines Urine Color Cancelled Urine Clarity Cancelled Urine pH Cancelled Ur Specific [place] Cancelled Urine Protein Cancelled Urine Ketones Cancelled Urine Nitrite Cancelled Urine Bilirubin Cancelled Urine Urobilinogen Cancelled Ur Leukocyte Esterase Cancelled Ur Microscopic Cancelled Urine Hemoglobin Cancelled Urine Glucose Cancelled
--- NOTE | 2017-10-19 15:26 | PN- Nephrology ---
Assessment/Plan Nephrology Assessment: 1. JOHN/CKD with low urinary sodium consistent with a prerenal state and/or hepatorenal syndrome 2. Hyperkalemia 3. Hypercalcemia -mild 4. Cirrhosis with ascites and a rising serum bilirubin; no evidence for SBP Suggestion: 1. Continue 25% albumin infusions for a total of 8 doses as discussed. 2. Would give her 1 dose of Kayexalate 30g p.o. preferably after her nausea has been controlled. Should she been unable to tolerate a single dose of Kayexalate , we can try patiromer (Veltassa) 8.4 g p.o. 1 -fluoroscopy serum potassium of 5.6 or greater. 3. Please recheck serum calcium, phosphorus and magnesium levels 4. Management of hepatic encephalopathy per GI Subjective Subjective: Patient feeling nauseated again today and vomited 1. Renal function not significantly changed. Urine sodium low. Serum bilirubin slowly rising. Peritoneal fluid transudate of without evidence for SBP. WBC 188. Albumin < 1.0. SAAG >1.1. All cultures negative thus far. Objective Vital Signs and I&Os Vital Signs Date Time Temp Pulse Resp B/P B/P Pulse O2 O2 Flow FiO2 Mean Ox Delivery Rate 10/19 1341 98.0 97 20 128/68 97 Room Air 10/19 1011 122/60 10/19 0544 97.4 99 20 120/68 96 Room Air 10/18 2229 97.8 90 20 130/70 92 Intake & Output 10/19 1600 10/19 0400 10/18 1600 10/18 0400 10/17 1600 10/17 0400 Intake Total 772 149 8468 0 Output Total 100 150 0 Balance 140 240 870 0 Intake, IV 100 Intake, Oral 240 240 920 0 Number 0 Bowel Movements Output, Urine 100 150 0 Patient 210 lb Weight Weight Bed scale Measurement Method Physical Exam: General: Chronically ill-appearing, elderly white female complaining of nausea Skin: No rash or jaundice HEENT: Conjunctivae pale, sclerae anicteric, mucous membranes moist Neck: Without masses or thyromegaly, no supraclavicular or cervical adenopathy Chest: Diminished breath sounds at bases, no rales or rhonchi Heart: Regular rate and rhythm without S3 or rub Abdomen: Soft with shifting dullness consistent with ascites, no palpable masses or organomegaly Extremities: 2+ lower extremity edema bilaterally Neuro: Awake and alert, no focal findings, + few beats of asterixis, no myoclonus Results Pertinent Lab Results: Laboratory Tests 10/19 10/19 1120 1120 Toxicology Urine Opiates Screen (>2000 NG/ML) < 100 Methadone Screen (>300 NG/ML) 65 Barbiturate Screen (>200 NG/ML) < 60 Ur Phencyclidine Scrn (>25 NG/ML) < 6.00 Amphetamines Screen (>1000 NG/ML) < 100 U Benzodiazepines Scrn (>200 NG/ML) < 85 Urine Cocaine Screen (>300 NG/ML) < 50 Urine Cannabis Screen (>50 NG/ML) < 5.00 Urines Urine Color (YEL,AMB,STR) YEL Urine Clarity (CLEAR) CLEAR Urine pH (5.0 - 8.0) 6.0 Ur Specific [place] (1.001 - 1.035) 1.020 Urine Protein (NEG,<30 MG/DL) NEG Urine Ketones (NEG) NEG Urine Nitrite (NEG) NEG Urine Bilirubin (NEG) NEG@ICTO Urine Urobilinogen (0.1 - 1.0 EU/dl) 0.2 Ur Leukocyte Esterase (NEG) SMALL H Ur Microscopic SEDIMENT EXAMINED Urine WBC (0 - 2 /HPF) 5-10 H Ur Epithelial Cells (NONE,FEW) RENAL H Urine Bacteria (NEG/NONE) FEW H Micro UA Comment [place] H Urine Hemoglobin (NEG) NEG Ur Random Creatinine (mg/dL) 171.2 Ur Random Sodium (30 - 90 mmol/L) < 5 L Ur Random Potassium (mmol/L) 34.6 Fraction Sodium Excret (<1% %) Urine Glucose (N MG/DL) NEG 10/19 10/18 10/18 0800 1421 UNK Chemistry Sodium (137 - 145 mmol/L) 137 Potassium (3.5 - 5.1 mmol/L) 5.9 H Chloride (98 - 107 mmol/L) 103 Carbon Dioxide (22 - 30 mmol/L) 20 L Anion Gap (5 - 16) 14 BUN (7 - 17 mg/dL) 82 H Creatinine (0.5 - 1.0 mg/dL) 4.4 H Estimated GFR (>60 ml/min) 10 L BUN/Creatinine Ratio (7 - 25 %) 18.6 Total Bilirubin (0.2 - 1.3 mg/dL) 2.4 H Direct Bilirubin (< 0.4 mg/dL) 1.5 H AST (14 - 36 U/L) 82 H ALT (9 - 52 U/L) 30 Alkaline Phosphatase (<127 U/L) 366 H Total Protein (6.3 - 8.2 g/dL) 6.3 Albumin (3.5 - 5.0 g/dL) 3.6 Coagulation PT (9.4 - 12.5 SEC) 14.0 H INR (0.90 - 1.19) 1.28 H Hematology CBC w Diff NO MAN DIFF REQ WBC (4.8 - 10.8 /CUMM) 6.4 RBC (4.20 - 5.40 /CUMM) 2.99 L Hgb (12.0 - 16.0 G/DL) 10.1 L Hct (37 - 47 %) 30.4 L MCV (81.0 - 99.0 FL) 101.7 H MCH (27.0 - 31.0 PG) 33.6 H MCHC (33.0 - 37.0 G/DL) 33.1 RDW (11.5 - 14.5 %) 18.0 H Plt Count (130 - 400 /CUMM) 91 L MPV (7.4 - 10.4 FL) 10.6 H Gran % (42.2 - 75.2 %) 55.7 Lymphocytes % (20.5 - 51.1 %) 25.9 Monocytes % (1.7 - 9.3 %) 14.1 H Eosinophils % (0 - 5 %) 3.1 Basophils % (0.0 - 2.0 %) 1.2 Absolute Granulocytes (1.4 - 6.5 /CUMM) 3.6 Absolute Lymphocytes (1.2 - 3.4 /CUMM) 1.7 Absolute Monocytes (0.10 - 0.60 /CUMM) 0.9 H Absolute Eosinophils (0.0 - 0.7 /CUMM) 0.2 Absolute Basophils (0.0 - 0.2 /CUMM) 0.1 Other Body Source Fluid WBC (0 - 5 /CUMM) 188 H Fld Mesothelial Cells (%) Fld Total RBCs Counted (0 /CUMM) 525 H Urines Ur Random Creatinine Cancelled Ur Random Sodium Cancelled Ur Random Potassium Cancelled Fraction Sodium Excret Cancelled 10/18 10/18 10/18 UNK 0705 0315 Chemistry Sodium (137 - 145 mmol/L) 135 L Potassium (3.5 - 5.1 mmol/L) 5.1 Chloride (98 - 107 mmol/L) 104 Carbon Dioxide (22 - 30 mmol/L) 22 Anion Gap (5 - 16) 10 BUN (7 - 17 mg/dL) 77 H Creatinine (0.5 - 1.0 mg/dL) 4.5 H Estimated GFR (>60 ml/min) 9 L BUN/Creatinine Ratio (7 - 25 %) 17.1 Lactic Acid (0.7 - 2.1 mmol/L) 1.3 Total Bilirubin (0.2 - 1.3 mg/dL) 1.9 H Direct Bilirubin (< 0.4 mg/dL) 1.0 H AST (14 - 36 U/L) 80 H ALT (9 - 52 U/L) 32 Alkaline Phosphatase (<127 U/L) 335 H Total Protein (6.3 - 8.2 g/dL) 5.8 L Albumin (3.5 - 5.0 g/dL) 3.0 L Hematology CBC w Diff NO MAN DIFF REQ WBC (4.8 - 10.8 /CUMM) 5.9 RBC (4.20 - 5.40 /CUMM) 3.10 L Hgb (12.0 - 16.0 G/DL) 10.5 L Hct (37 - 47 %) 31.5 L MCV (81.0 - 99.0 FL) 101.5 H MCH (27.0 - 31.0 PG) 33.8 H MCHC (33.0 - 37.0 G/DL) 33.3 RDW (11.5 - 14.5 %) 17.9 H Plt Count (130 - 400 /CUMM) 85 L MPV (7.4 - 10.4 FL) 10.1 Gran % (42.2 - 75.2 %) 59.1 Lymphocytes % (20.5 - 51.1 %) 23.7 Monocytes % (1.7 - 9.3 %) 14.4 H Eosinophils % (0 - 5 %) 2.4 Basophils % (0.0 - 2.0 %) 0.4 Absolute Granulocytes (1.4 - 6.5 /CUMM) 3.5 Absolute Lymphocytes (1.2 - 3.4 /CUMM) 1.4 Lymphocytes (%) 22 Absolute Monocytes (0.10 - 0.60 /CUMM) 0.8 H Absolute Eosinophils (0.0 - 0.7 /CUMM) 0.1 Absolute Basophils (0.0 - 0.2 /CUMM) 0 % Normal PMNs (%) 20 Other Body Source Fluid Glucose (mg/dL) 144 Fluid Total Protein (g/dL) < 2.0 Fluid Albumin (g/dL) < 1.0 Fluid LDH (U/L) 143 Fluid Amylase (U/L) < 30 10/17 10/17 10/17 2127 1818 1800 Chemistry Sodium (137 - 145 mmol/L) 139 Potassium (3.5 - 5.1 mmol/L) 5.2 H Chloride (98 - 107 mmol/L) 102 Carbon Dioxide (22 - 30 mmol/L) 22 Anion Gap (5 - 16) 16 BUN (7 - 17 mg/dL) 75 H Creatinine (0.5 - 1.0 mg/dL) 4.5 H Estimated GFR (>60 ml/min) 9 L BUN/Creatinine Ratio (7 - 25 %) 16.7 Glucose (65 - 99 mg/dL) 172 H Lactic Acid (0.7 - 2.1 mmol/L) 2.4 H Calcium (8.4 - 10.2 mg/dL) 11.1 H Phosphorus (2.5 - 4.5 mg/dL) 4.0 Magnesium (1.6 - 2.3 mg/dL) 2.1 Total Bilirubin (0.2 - 1.3 mg/dL) 2.5 H Direct Bilirubin (< 0.4 mg/dL) 1.3 H AST (14 - 36 U/L) 100 H ALT (9 - 52 U/L) 18 Alkaline Phosphatase (<127 U/L) 385 H Ammonia (9 - 30 umol/L) 101 H Troponin I (< 0.11 ng/ml) 0.03 Total Protein (6.3 - 8.2 g/dL) 6.8 Albumin (3.5 - 5.0 g/dL) 3.8 Globulin (1.9 - 4.2 gm/dL) 3.0 Albumin/Globulin Ratio (1.1 - 2.2 %) 1.3 Amylase (30 - 110 U/L) 53 Lipase (23 - 300 U/L) 269 25-OH Vitamin D Total (30 - 100 ng/ml) 46.6 PTH Intact (18.4 - 80.1 pg/ML) 112.2 H Coagulation PT (9.4 - 12.5 SEC) 13.5 H INR (0.90 - 1.19) 1.24 H APTT (25 - 37 SEC) 33 Hematology CBC w Diff NO MAN DIFF REQ WBC (4.8 - 10.8 /CUMM) 7.6 RBC (4.20 - 5.40 /CUMM) 3.66 L Hgb (12.0 - 16.0 G/DL) 12.2 Hct (37 - 47 %) 37.3 MCV (81.0 - 99.0 FL) 101.8 H MCH (27.0 - 31.0 PG) 33.2 H MCHC (33.0 - 37.0 G/DL) 32.7 L RDW (11.5 - 14.5 %) 18.0 H Plt Count (130 - 400 /CUMM) 142 MPV (7.4 - 10.4 FL) 10.5 H Gran % (42.2 - 75.2 %) 66.9 Lymphocytes % (20.5 - 51.1 %) 18.1 L Monocytes % (1.7 - 9.3 %) 13.3 H Eosinophils % (0 - 5 %) 1.5 Basophils % (0.0 - 2.0 %) 0.2 Absolute Granulocytes (1.4 - 6.5 /CUMM) 5.1 Absolute Lymphocytes (1.2 - 3.4 /CUMM) 1.4 Absolute Monocytes (0.10 - 0.60 /CUMM) 1.0 H Absolute Eosinophils (0.0 - 0.7 /CUMM) 0.1 Absolute Basophils (0.0 - 0.2 /CUMM) 0 Toxicology Methadone Screen Cancelled Barbiturate Screen Cancelled Ur Phencyclidine Scrn Cancelled Amphetamines Screen Cancelled U Benzodiazepines Scrn Cancelled Urine Cocaine Screen Cancelled Urine Cannabis Screen Cancelled Urines Urine Color Cancelled Urine Clarity Cancelled Urine pH Cancelled Ur Specific [place] Cancelled Urine Protein Cancelled Urine Ketones Cancelled Urine Nitrite Cancelled Urine Bilirubin Cancelled Urine Urobilinogen Cancelled Ur Leukocyte Esterase Cancelled Ur Microscopic Cancelled Urine Hemoglobin Cancelled Urine Glucose Cancelled
--- NOTE | 2017-10-19 17:19 | Transfer of Care Summary ---
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 Patient was recently discharged from [facility] after being treated for acute hepatic encephalopathy secondary to elevated ammonia in the setting of urinary tract infection, she initially received lactulose that was changed to rifaximin at the time of discharge. Pertinent vitals and labs on admission vitals: Temperature 97.5, pulse 77, RR 16, blood pressure 142/78, saturating 98% on room air Labs at admission: WC 7.6, Hb 12.2, MCV 101.8, potassium 5.2, again 75, creatinine 4.5,calcium 11.1 , total bili 2.5, AST 100, alk phosphatase 385, ammonia 101,INR 1.2, UA pending, and toxicology pending Imagings at admission: NO imaging. Following problems were addressed while patient was a [facility] Altered mental status(acute hepatic encephalopathy with the recurrent ascites secondary to decompensated cirrhosis : Patient was started on lactulose and continued on her Xifaxan. She was found to have ammonia level of 101 on admission. GI consult was consulted as per recommendations diagnostic paracentesis was obtained that ruled out SBP. Therapeutic paracentesis was not done due to the concerns of worsening kidney functions. Patient was supplemented with IV albumin. LFTs and bilirubin trended down. Patient's clinical mental status improved. Acute on chronic kidney disease different changes include either prerenal in the setting of cryptogenic cirrhosis with ascites requiring frequent paracenteses/ Hepatorenal syndrome: Patient was evaluated by nephrology as per recommendations patient was continued on on IV albumin strict in's and O's were monitored. Electrolytes abnormalities: Hypercalcemia, hyperkalemia: Electrolyte abnormalities including hypokalemia and hypercalcemia were corrected during the admission
[2017-10-19 18:30] VITALS: BP 110/70
[2017-10-19 21:56] VITALS: BP 132/60
[2017-10-20 07:03] VITALS: BP 140/80
--- NOTE | 2017-10-20 08:17 | PN- Housestaff ---
Subjective Follow-up For: -AMS likely secondary to hyperammonemia secondary to SORIA cirrhosis -Electrolytes abnormalities: Hypercalcemia, hyperkalemia -JOHN on CKD: secondary to hepatorenal syndrome, dehydration Subjective: Patient felt nauseous overnight but did not vomit. On interview she feels better. Denies any abdominal pain or pressure. Has not had a bowel movement since the (today is the ) and is on TID lactulose. The patient is alert and oriented x3. She denies any urinary symptoms. Review of Systems Constitutional: Reports: no symptoms. EENTM: Reports: no symptoms. Cardiovascular: Reports: no symptoms. Respiratory: Reports: no symptoms. Gastrointestinal: Reports: distention. Genitourinary: Reports: no symptoms. Musculoskeletal: Reports: no symptoms. Skin: Reports: no symptoms. Neurological/Psychological: Denies: cognitive dysfunction, confusion, dementia. Objective Last 24 Hrs of Vital Signs/I&O Vital Signs Date Time Temp Pulse Resp B/P B/P Pulse O2 O2 Flow FiO2 Mean Ox Delivery Rate 10/20 0703 98.1 98 18 140/80 97 Room Air 10/20 0000 Room Air 10/19 2156 98.6 99 20 132/60 96 10/19 1830 97.6 92 20 110/70 94 Room Air 10/19 1630 Room Air 10/19 1341 98.0 97 20 128/68 97 Room Air Intake & Output 10/20 1600 10/20 0800 10/20 0000 Intake Total 340 410 Output Total 250 Balance -250 340 410 Intake, IV 100 50 Intake, Oral 240 360 Number 2 1 Bowel Movements Output, 250 Emesis Patient 209 lb Weight Physical Exam General Appearance: Alert, Oriented X3, Cooperative, No Acute Distress Skin: No Rashes, No Breakdown, No Significant Lesion Skin Temp/Moisture Exam: Warm/Dry Sepsis Skin Exam (color): Normal for Ethnicity HEENT: Atraumatic, EOMI, Mucous Membr. moist/pink Cardiovascular: Regular Rate, Normal S1, Normal S2, No Murmurs Lungs: Clear to Auscultation, Normal Air Movement Abdomen: Normal Bowel Sounds, Soft, No Masses, tenderness on deep palpation. Distended with shifting dullness. patient to go for therapeutic paracentesis today. Neurological: Normal Speech Extremities: No Clubbing, No Cyanosis, Normal Pulses, No Tenderness/Swelling, no pedal edema today but tenderness on lower extremity palpation on the shins Vascular: Normal Pulses, Pulses Symmetrical Current Medications: Current Medications Sig/Jennifer Start time Last Medication Dose Route Stop Time Status Admin Albumin Human 12.5 GM Q8 10/18 0804 10/20 IV 0554 Allopurinol 100 MG DAILY 10/18 0900 AC 10/19 PO 1010 Amlodipine Besylate 10 MG DAILY 10/18 0900 AC 10/19 PO 1011 Atorvastatin Calcium 5 MG 1700 10/18 1700 AC 10/19 PO 1650 Carbidopa/Levodopa 1 TAB TID 10/18 09 AC 10/19 PO 2012 Duloxetine HCl 60 MG TUES THURS SAT 10/19 0900 10/19 PO 1010 Fentanyl Citrate 12 MCG Q3D 10/18 0015 TOP Insulin Aspart 0 TIDAC 10/18 08 10/19 SC 1650 Insulin Detemir 8 UNITS DAILY 10/18 09 10/19 SC 1009 Lactulose 20 GM Q6 10/20 1200 AC PO Lactulose 20 GM TID 10/18 0900 VT 10/19 PO 2012 Levothyroxine Sodium 0.175 MG DAILY AC 10/18 0700 AC 10/20 PO 0554 Omeprazole 40 MG DAILY 10/18 0700 AC 10/20 PO 0554 Ondansetron HCl 4 MG ONCE ONE 10/19 1300 DC 10/19 IV 10/19 1301 1334 Patient Medication 1 ED ONE ONE 10/19 1700 DC Teaching ED 10/19 1701 Rifaximin 550 MG BID 10/18 0015 10/19 PO 2012 Sodium Polystyrene 60 ML ONCE ONE 10/20 1000 DC Sulfonate PO 10/20 1001 Sodium Polystyrene 30 ML ONCE ONE 10/19 1845 CAN Sulfonate PO 10/19 1846 Last 24 Hrs of Lab/Unruly Results Last 24 Hrs of Labs/Mics: Laboratory Tests 10/20/17 0758: Anion Gap 10, Estimated GFR 10 L, BUN/Creatinine Ratio 18.4, Calcium 10.6 H, Phosphorus 3.6, Magnesium 2.2, Total Bilirubin 2.5 H, Direct Bilirubin 1.3 H, AST 79 H, ALT 33, Alkaline Phosphatase 368 H, Total Protein 5.9 L, Albumin 3.5, PT 14.2 H, INR 1.30 H, CBC w Diff NO MAN DIFF REQ, RBC 2.78 L, MCV 101.2 H, MCH 33.4 H, MCHC 33.0, RDW 17.7 H, MPV 10.4, Gran % 59.6, Lymphocytes % 24.1, Monocytes % 13.7 H, Eosinophils % 2.2, Basophils % 0.4, Absolute Granulocytes 2.9, Absolute Lymphocytes 1.2, Absolute Monocytes 0.7 H, Absolute Eosinophils 0.1, Absolute Basophils 0 10/19/17 2315: Anion Gap 11, Estimated GFR 10 L, BUN/Creatinine Ratio 19.5, Calcium 10.8 H, Phosphorus 3.7, Magnesium 2.2 10/19/17 1600: Sodium Cancelled, Potassium Cancelled, Chloride Cancelled, Carbon Dioxide Cancelled, Anion Gap Cancelled, BUN Cancelled, Creatinine Cancelled, BUN/ Creatinine Ratio Cancelled 10/19/17 1120: Urine Color YEL, Urine Clarity CLEAR, Urine pH 6.0, Ur Specific [place] 1.020, Urine Protein NEG, Urine Ketones NEG, Urine Nitrite NEG, Urine Bilirubin NEG@ ICTO, Urine Urobilinogen 0.2, Ur Leukocyte Esterase SMALL H, Ur Microscopic SEDIMENT EXAMINED, Urine WBC 5-10 H, Ur Epithelial Cells RENAL H, Urine Bacteria FEW H, Micro UA Comment [place] H, Urine Hemoglobin NEG, Urine Glucose NEG 10/19/17 1120: Urine Opiates Screen < 100, Methadone Screen 65, Barbiturate Screen < 60, Ur Phencyclidine Scrn < 6.00, Amphetamines Screen < 100, U Benzodiazepines Scrn < 85, Urine Cocaine Screen < 50, Urine Cannabis Screen < 5.00, Ur Random Creatinine 171.2, Ur Random Sodium < 5 L, Ur Random Potassium 34.6, Fraction Sodium Excret Assessment/Plan Assessment: Patient is 81-year-old female presented with nausea, vomiting, abdominal distention and altered mental status. Patient was recently admitted here with similar complaints, at the time found to have a UTI which had likely precipitated an episode of acute hepatic encephalopathy. Patient had abdominal paracentesis done as well, 6 L of transudative fluid was removed. SBP was ruled out. She was put on lactulose as well and over time, her AMS resolved. She was discharged on rifaxamin. She had continued therapeutic paracentesis outpatient. However, [employer] she developed nausea, vomiting, and AMS again. 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, Ph Ex at admission: No fever, significantfor NV 100, saturating well in room air Labs at admission: WC 7.6, Hb 12.2, MCV 101.8, potassium 5.2, again 75, creatinine 4.5,calcium 11.1 , total bili 2.5, AST 100, alk phosphatase 385, ammonia 101, INR 1.2 Imagings at admission: NO imaging Problem List: AMS likely secondary to hyperammonemia secondary to SORIA cirrhosis Electrolytes abnormalities: Hypercalcemia, hyperkalemia JOHN on CKD: secondary to hepatorenal syndrome, dehydration Plan: AMS likely secondary to hyperammonemia secondary to SORIA cirrhosis or hypercalcemia (the below): Patient was started on lactulose and continued on her Xifaxan. She was found to have ammonia level of 101 on admission. Yesterday liver function tests decreased numbers - total bili level was found to have decreased from 2.5 to 1.9, direct bilirubin decreased from 1.3 to 1.0, AST decreased from 100 to 80, alkaline phosphatase from 385 to 335. LFTs are largely unchanged today. Patient continues to be on albumin IV. Patient is afebrile with no white blood cell count, mo evidence SBP on diagnostic paracentesis. Patient is on a low sodium less than 2 g, less than 2 g K diet and we are continuing the Xifaxan and lactulose, titrate 2-3 soft bowel movements a day with holding parameters for diarrhea. Patient has not however had a BM in 6 days. Mental status is good today, not encephalopathic. -Diagnostic paracentesis showed no SBP and ascites secondary to portal hypertension with SAAG > 1.1 -Today patient is to undergo large volume paracentesis. Cr has not changed from yesterday so we will go ahead. Blood pressure and other vitals are stable. Paracentesis will be done with 25-50 grams of albumin infusion concurrently. -Vital signs every shift -Titrate lactulose up to q6 -Follow mental status with physical exam and not with repeat ammonia levels. -Follow evans cultures -Follow LFTs, INR's, BEP, CBCs (hb and plt counts) -Hold fluids at this time Electrolytes abnormalities: Hypercalcemia, hyperkalemia -Monitor levels and can dose potassium binder and/or Sensipar if needed -Today potassium is 5.9, yesterday 5.5. We gave one dose of kayexelate earlier and will give another as per renal before drawing another K level later tonight. Of note, patient was not experiencing nausea any longer this morning. If she is noted to be experiencing nausea again, we will try Veltassa for K>5.6. -Parathyroid hormone level is 112 with elevated calcium, this has been true in previous admissions as well. The patient also has an elevated alkaline phosphatase level which could very well be liver or could be an element of bone breakdown. Hypercalcemia can also be secondary to malignancy. Can do alkaline phosphatase isoenzymes, outpatient workup with referral to endocrinology for potential hyperparathyroidism. JOHN on CKD: secondary to hepatorenal syndrome, dehydration. Serum creatinine has recently been in the mid 2's but was 4.5 yesterday, today 4.4. Urine sodium is less than 5, suggestive of heaptorenal syndrome, FENA is low. The body is attempting to preserve sodium and water secondary to kidneys not "seeing" the fluid volume, as much of it remains in the abdomen (ascitic fluid) and is doing so efficiently, ie not an intrinsic problem within the kidneys. -Continue albumin 25 IV q8. Give one more day of albumin at the current dose and if renal function does not improve, we will consider starting midodrine or octreotide. -Follow BEP - -Appreciate nephrology consult -Monitor in's and out's, patient is incontinent of urine and needs straight cath as needed if urine needs to be drawn for labs. Asymptomatic UTI -Monitor CBC and vitals -Follow of antibiotics Gout history: -Due to JOHN, we have decreased dose of allopurinol Heart healthy DVT ppx: alps and pharmacologic DNR/DNI Problem List: 1. Hepatic encephalopathy 2. Liver failure 3. Ascites 4. Acute on chronic kidney failure Pain Ratin Pain Location: na Pain Goal: Remain pain free Pain Plan: na Tomorrow's Labs & Rationales: cbc bep lft inr
[2017-10-20 08:34] LABS: ABSOLUTE BASOPHIL COUNT 0 /CUMM (0.0-0.2); ABSOLUTE EOSINOPHIL COUNT 0.1 /CUMM (0.0-0.7); ABSOLUTE GRANULOCYTE CT 2.9 /CUMM (1.4-6.5); ABSOLUTE LYMPH COUNT 1.2 /CUMM (1.2-3.4); ABSOLUTE MONOCYTE COUNT 0.7 /CUMM (0.10-0.60); BASOPHIL % 0.4 % (0.0-2.0); EOSINOPHIL % 2.2 % (0-5); GRANULOCYTE % 59.6 % (42.2-75.2); HEMATOCRIT 28.2 % (37-47); MEAN CORPUSCULAR HGB 33.4 PG (27.0-31.0); MEAN CORPUSCULAR VOLUME 101.2 FL (81.0-99.0); MEAN PLATELET VOLUME 10.4 FL (7.4-10.4); RBC DISTRIBUTION WIDTH 17.7 % (11.5-14.5); RED BLOOD CELL CT 2.78 /CUMM (4.20-5.40); WHITE BLOOD CELL COUNT 4.9 /CUMM (4.8-10.8)
[2017-10-20 08:37] LABS: PT 14.2 SEC (9.4-12.5)
[2017-10-20 09:12] LABS: PLATELET COUNT 74 /CUMM (130-400)
--- NOTE | 2017-10-20 11:49 | PN- Att Addend ---
Attending Addendum Attending Brief Note Patient seen and examined. Plan of care discussed with the medical team and the patient. Available lab work and radiology test reports were reviewed. Patient seemed to be more awake and alert today and she is oriented. She denies any difficulty breathing fever or chills. She has not moved bowels yet. Exam: General: Patient awake slightly lethargic and oriented without any distress CVS: S1 plus S2 without any murmur or gallops Chest: Few scattered crepitation without any wheeze. There is no respiratory distress. Abdomen: Soft and distended but non-tender, bowel sound present, no guarding or rebound [employer]: Awake alert oriented without any focal neuro deficit and follows commands appropriately Extremities: 1+ bilateral edema; no clubbing or cyanosis noted ; no asterixis noted Assessment * Recurrent ascites secondary to decompensated cirrhosis- patient status post diagnostic ascitic tap today; based on chemistry labs the fluid appears to be a transudate and culture reports are negative so far * Hepatitic encephalopathy- improved despite not moving any bowel motions * Acute kidney injury on chronic kidney disease,suspected hepatorenal syndrome * Hypercalcemia due to hyperparathyroidism; patient currently does not meet criteria for surgery; she should be watched conservatively * Elevated bilirubin * Hx of DM, HTN, HLD, CAD, * 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, * portal hypertension, * ROD, * hypothyroidism, * gout, * spinal stenosis, * CKD * Hyperkalemia- likely due to worsening renal failure Plan * Continue albumin * Plan for large volume paracentesis today * Low potassium diet * Consider Kayexalate 70 g daily; recheck potassium in a.m. * continue rifaximin and lactulose; lactulose does many to increase since patient has no motor bowel * recheck labs in am * monitor mental status closely Current Medications Sig/Jennifer Start time Last Medication Dose Route Stop Time Status Admin Albumin Human 12.5 GM Q8 10/18 0804 AC 10/20 IV 0554 Allopurinol 100 MG DAILY 10/18 09 AC 10/19 PO 1010 Amlodipine Besylate 10 MG DAILY 10/18 09 AC 10/19 PO 1011 Atorvastatin Calcium 5 MG 1700 10/18 1700 AC 10/19 PO 1650 Carbidopa/Levodopa 1 TAB TID 10/18 09 AC 10/19 PO 2011 Duloxetine HCl 60 MG TUES THURS SAT 10/19 0900 AC 10/19 PO 1010 Fentanyl Citrate 12 MCG Q3D 10/18 0015 AC TOP Insulin Aspart 0 TIDAC 10/18 0800 AC 10/19 SC 1650 Insulin Detemir 8 UNITS DAILY 10/18 0900 AC 10/19 SC 1009 Lactulose 20 GM Q6 10/20 1200 AC PO Lactulose 20 GM TID 10/18 0900 DC 10/19 PO 2011 Levothyroxine Sodium 0.175 MG DAILY AC 10/18 0700 AC 10/20 PO 0554 Omeprazole 40 MG DAILY AC 10/18 0700 AC 10/20 PO 0554 Ondansetron HCl 4 MG ONCE ONE 10/19 1300 DC 10/19 IV 10/19 1301 1334 Patient Medication 1 ED ONE ONE 10/19 1700 DC Teaching ED 10/19 1701 Rifaximin 550 MG BID 10/18 001 AC 10/19 PO 2011 Sodium Polystyrene 60 ML ONCE ONE 10/20 1000 DC Sulfonate PO 10/20 1001 Sodium Polystyrene 30 ML ONCE ONE 10/19 1845 CAN Sulfonate PO 10/19 1846 Laboratory Tests 10/20/17 0758: Anion Gap 10, Estimated GFR 10 L, BUN/Creatinine Ratio 18.4, Calcium 10.6 H, Phosphorus 3.6, Magnesium 2.2, Total Bilirubin 2.5 H, Direct Bilirubin 1.3 H, AST 79 H, ALT 33, Alkaline Phosphatase 368 H, Total Protein 5.9 L, Albumin 3.5, PT 14.2 H, INR 1.30 H, CBC w Diff NO MAN DIFF REQ, RBC 2.78 L, MCV 101.2 H, MCH 33.4 H, MCHC 33.0, RDW 17.7 H, MPV 10.4, Gran % 59.6, Lymphocytes % 24.1, Monocytes % 13.7 H, Eosinophils % 2.2, Basophils % 0.4, Absolute Granulocytes 2.9, Absolute Lymphocytes 1.2, Absolute Monocytes 0.7 H, Absolute Eosinophils 0.1, Absolute Basophils 0 10/19/17 2315: Anion Gap 11, Estimated GFR 10 L, BUN/Creatinine Ratio 19.5, Calcium 10.8 H, Phosphorus 3.7, Magnesium 2.2 10/19/17 1600: Sodium Cancelled, Potassium Cancelled, Chloride Cancelled, Carbon Dioxide Cancelled, Anion Gap Cancelled, BUN Cancelled, Creatinine Cancelled, BUN/ Creatinine Ratio Cancelled 10/19/17 1120: Urine Color YEL, Urine Clarity CLEAR, Urine pH 6.0, Ur Specific [place] 1.020, Urine Protein NEG, Urine Ketones NEG, Urine Nitrite NEG, Urine Bilirubin NEG@ ICTO, Urine Urobilinogen 0.2, Ur Leukocyte Esterase SMALL H, Ur Microscopic SEDIMENT EXAMINED, Urine WBC 5-10 H, Ur Epithelial Cells RENAL H, Urine Bacteria FEW H, Micro UA Comment [place] H, Urine Hemoglobin NEG, Urine Glucose NEG 10/19/17 1120: Urine Opiates Screen < 100, Methadone Screen 65, Barbiturate Screen < 60, Ur Phencyclidine Scrn < 6.00, Amphetamines Screen < 100, U Benzodiazepines Scrn < 85, Urine Cocaine Screen < 50, Urine Cannabis Screen < 5.00, Ur Random Creatinine 171.2, Ur Random Sodium < 5 L, Ur Random Potassium 34.6, Fraction Sodium Excret 10/19/17 0800: Anion Gap 14, Estimated GFR 10 L, BUN/Creatinine Ratio 18.6, Total Bilirubin 2.4 H, Direct Bilirubin 1.5 H, AST 82 H, ALT 30, Alkaline Phosphatase 366 H, Total Protein 6.3, Albumin 3.6, PT 14.0 H, INR 1.28 H, CBC w Diff NO MAN DIFF REQ, RBC 2.99 L, MCV 101.7 H, MCH 33.6 H, MCHC 33.1, RDW 18.0 H, MPV 10.6 H , Gran % 55.7, Lymphocytes % 25.9, Monocytes % 14.1 H, Eosinophils % 3.1, Basophils % 1.2, Absolute Granulocytes 3.6, Absolute Lymphocytes 1.7, Absolute Monocytes 0.9 H, Absolute Eosinophils 0.2, Absolute Basophils 0.1 10/18/17 1421: Ur Random Creatinine Cancelled, Ur Random Sodium Cancelled, Ur Random Potassium Cancelled, Fraction Sodium Excret Cancelled 10/18/17 1000: Fluid WBC 188 H, Fld Mesothelial Cells , Fld Total RBCs Counted 525 H 10/18/17 1000: Lymphocytes 22, % Normal PMNs 20, Fluid Glucose 144, Fluid Total Protein < 2.0, Fluid Albumin < 1.0, Fluid LDH 143, Fluid Amylase < 30 10/18/17 0705: Anion Gap 10, Estimated GFR 9 L, BUN/Creatinine Ratio 17.1, Total Bilirubin 1.9 H, Direct Bilirubin 1.0 H, AST 80 H, ALT 32, Alkaline Phosphatase 335 H, Total Protein 5.8 L, Albumin 3.0 L, CBC w Diff NO MAN DIFF REQ, RBC 3.10 L, MCV 101.5 H, MCH 33.8 H, MCHC 33.3, RDW 17.9 H, MPV 10.1, Gran % 59.1, Lymphocytes % 23.7, Monocytes % 14.4 H, Eosinophils % 2.4, Basophils % 0.4, Absolute Granulocytes 3.5, Absolute Lymphocytes 1.4, Absolute Monocytes 0.8 H, Absolute Eosinophils 0.1, Absolute Basophils 0 10/18/17 0315: Lactic Acid 1.3 10/17/177: Methadone Screen Cancelled, Barbiturate Screen Cancelled, Ur Phencyclidine Scrn Cancelled, Amphetamines Screen Cancelled, U Benzodiazepines Scrn Cancelled, Urine Cocaine Screen Cancelled, Urine Cannabis Screen Cancelled 10/17/17 1818: Anion Gap 16, Estimated GFR 9 L, BUN/Creatinine Ratio 16.7, Glucose 172 H, Lactic Acid 2.4 H, Calcium 11.1 H, Phosphorus 4.0, Magnesium 2.1, Total Bilirubin 2.5 H, Direct Bilirubin 1.3 H, AST 100 H, ALT 18, Alkaline Phosphatase 385 H, Ammonia 101 H, Troponin I 0.03, Total Protein 6.8, Albumin 3.8, Globulin 3.0, Albumin/Globulin Ratio 1.3, Amylase 53, Lipase 269, 25-OH Vitamin D Total 46.6, PTH Intact 112.2 H, PT 13.5 H, INR 1.24 H, APTT 33, CBC w Diff NO MAN DIFF REQ, RBC 3.66 L, MCV 101.8 H, MCH 33.2 H, MCHC 32.7 L, RDW 18.0 H, MPV 10.5 H, Gran % 66.9, Lymphocytes % 18.1 L, Monocytes % 13.3 H, Eosinophils % 1.5, Basophils % 0.2, Absolute Granulocytes 5.1, Absolute Lymphocytes 1.4, Absolute Monocytes 1.0 H, Absolute Eosinophils 0.1, Absolute Basophils 0 10/17/17 1800: Urine Color Cancelled, Urine Clarity Cancelled, Urine pH Cancelled, Ur Specific [place] Cancelled, Urine Protein Cancelled, Urine Ketones Cancelled, Urine Nitrite Cancelled, Urine Bilirubin Cancelled, Urine Urobilinogen Cancelled, Ur Leukocyte Esterase Cancelled, Ur Microscopic Cancelled, Urine Hemoglobin Cancelled, Urine Glucose Cancelled Microbiology 10/18 UNK BODY FLUID: Body Fluid Culture - RES 10/18 UNK BODY FLUID: Gram Stain - RES Vital Signs Date Time Temp Pulse Resp B/P B/P Pulse O2 O2 Flow FiO2 Mean Ox Delivery Rate 10/20 0703 98.1 98 18 140/80 97 Room Air 10/20 0000 Room Air 10/19 2156 98.6 99 20 132/60 96 10/19 1830 97.6 92 20 110/70 94 Room Air 10/19 1630 Room Air 10/19 1341 98.0 97 20 128/68 97 Room Air Intake & Output 10/20 1600 10/20 0800 10/20 0000 Intake Total 340 410 Output Total 250 Balance -250 340 410 Intake, IV 100 50 Intake, Oral 240 360 Number 2 1 Bowel Movements Output, 250 Emesis Patient 209 lb Weight
--- NOTE | 2017-10-20 12:41 | ULTRASOUND REPORT ---
CLINICAL HISTORY: This patient is a 81 years old Female with ascites found on physical exam, who is referred to Interventional Radiology for ultrasound-guided paracentesis. PROCEDURE: Ultrasound-guided paracentesis. PHYSICIANS: Dr. Carley Dowd (attending). MEDICATIONS: 10 mL of 1% lidocaine SQ. COMPLICATIONS: None ESTIMATED BLOOD LOSS: <5 mL SPECIMENS: None IMPLANT: None. SITE MARKING: As part of the preprocedure verification policy, a site marking procedure was initiated. Due to the nature the procedure, the insertion site could not be predetermined thus invoking the policy of exemption to site laterality and marking. Insertion site marking was performed in the procedure room in conjunction with imaging confirmation. PROCEDURE NOTE: Informed consent was obtained from the patient prior to the procedure. During this process, the procedure and potential alternatives were explained along with the intended outcome and benefits. The risks of the procedure, including the possibility of an unsuccessful procedure, as well as the risk of not doing the procedure, were discussed. The patient was given the opportunity to ask questions regarding the procedure and appeared competent to make decisions. A signed consent form documenting this discussion was placed in the medical record. A time-out procedure was performed. Appropriate preprocedure medical history and imaging studies were reviewed. The patient was brought to the ultrasound room and placed in the supine position. A time-out procedure was performed. Ultrasound images of the abdomen were obtained to localize a moderately large collection of ascites. Images were permanently saved to the record. An area of the right lower quadrant was prepped and draped in the standard sterile fashion. All elements of maximal sterile barrier technique followed including use of cap, mask, sterile gown, sterile gloves, a sterile full body drape and hand hygiene. Also followed skin preparation with 2% chlorhexidine for cutaneous antisepsis, and sterile ultrasound preparation with sterile gel and probe cover when applicable. 10 mL of 1% lidocaine was used to obtain local anesthesia of the skin and deeper tissues. A standard small-bore needle was introduced to sample fluid and demonstrated a safe access route. There was no evidence of traversing adjacent organs or vascular structures. A 6-Fr Ylur-[id number] closed needle/catheter system was utilized for access. 4.7 L of slightly turbid dark yellow fluid was aspirated before drainage ceased. The catheter was removed and sterile dressing applied. The patient tolerated the procedure well without evidence of complications. FINDINGS: Moderately minimally complex abdominal ascites as detailed above. IMPRESSION: Successful ultrasound-guided therapeutic paracentesis. PLAN: The patient was stable after the procedure. The patient will be transferred to the floor.
--- NOTE | 2017-10-20 12:43 | PN- Nephrology ---
Assessment/Plan Nephrology Assessment: 1. JOHN/CKD with low urinary sodium consistent with a prerenal state and/or hepatorenal syndrome 2. Hyperkalemia 3. Hypercalcemia -mild 4. Cirrhosis with ascites and a rising serum bilirubin; no evidence for SBP Suggestion: 1. Would give another dose of Kayexalate 30 g by mouth and repeat later today if serum potassium remains above 5.5. 2. Continue lactulose and rifaximin 3. Would be in favor of starting octreotide and midodrine 4. Need to "cover" large volume paracentesis with 5% albumin infusion each time per guidelines Subjective Subjective: Patient underwent a large volume paracentesis earlier today. She currently is not feeling nauseated and has not vomited. Renal function has not improved and serum potassium remains elevated at 5.9 this morning. Urine output appears to be marginal at best. Serum bilirubin not falling as yet. Objective Vital Signs and I&Os Vital Signs Date Time Temp Pulse Resp B/P B/P Pulse O2 O2 Flow FiO2 Mean Ox Delivery Rate 10/20 1231 93 110/60 10/20 0703 98.1 98 18 140/80 97 Room Air 10/20 0000 Room Air 10/19 2156 98.6 99 20 132/60 96 10/19 1830 97.6 92 20 110/70 94 Room Air 10/19 1630 Room Air 10/19 1341 98.0 97 20 128/68 97 Room Air Intake & Output 10/20 1600 10/20 0400 10/19 1600 10/19 0400 10/18 1600 10/18 0400 Intake Total 340 410 306 215 7043 0 Output Total 250 100 150 0 Balance 90 410 740 240 870 0 Intake, IV 100 50 100 Intake, Oral 240 360 840 240 920 0 Number 2 1 0 Bowel Movements Output, 250 Emesis Output, Urine 100 150 0 Patient 209 lb 210 lb Weight Weight Bed scale Measurement Method Physical Exam: General: Chronically ill-appearing, elderly white female complaining of nausea in no acute distress Skin: No rash or jaundice HEENT: Conjunctivae pale, sclerae anicteric, mucous membranes moist Neck: Without masses or thyromegaly, no supraclavicular or cervical adenopathy Chest: Diminished breath sounds at bases, no rales or rhonchi Heart: Regular rate and rhythm without S3 or rub Abdomen: Soft with shifting dullness consistent with ascites, no palpable masses or organomegaly Extremities: 1-2+ lower extremity edema bilaterally Neuro: Awake and alert, no focal findings, + asterixis, no myoclonus Results Pertinent Lab Results: Laboratory Tests 10/20 10/19 10/19 0758 2315 1600 Chemistry Sodium (137 - 145 mmol/L) 135 L 134 L Cancelled Potassium (3.5 - 5.1 mmol/L) 5.9 H 5.5 H Cancelled Chloride (98 - 107 mmol/L) 102 101 Cancelled Carbon Dioxide (22 - 30 mmol/L) 22 22 Cancelled Anion Gap (5 - 16) 10 11 Cancelled BUN (7 - 17 mg/dL) 81 H 84 H Cancelled Creatinine (0.5 - 1.0 mg/dL) 4.4 H 4.3 H Cancelled Estimated GFR (>60 ml/min) 10 L 10 L BUN/Creatinine Ratio (7 - 25 %) 18.4 19.5 Cancelled Calcium (8.4 - 10.2 mg/dL) 10.6 H 10.8 H Phosphorus (2.5 - 4.5 mg/dL) 3.6 3.7 Magnesium (1.6 - 2.3 mg/dL) 2.2 2.2 Total Bilirubin (0.2 - 1.3 mg/dL) 2.5 H Direct Bilirubin (< 0.4 mg/dL) 1.3 H AST (14 - 36 U/L) 79 H ALT (9 - 52 U/L) 33 Alkaline Phosphatase (<127 U/L) 368 H Total Protein (6.3 - 8.2 g/dL) 5.9 L Albumin (3.5 - 5.0 g/dL) 3.5 Coagulation PT (9.4 - 12.5 SEC) 14.2 H INR (0.90 - 1.19) 1.30 H Hematology CBC w Diff NO MAN DIFF REQ WBC (4.8 - 10.8 /CUMM) 4.9 RBC (4.20 - 5.40 /CUMM) 2.78 L Hgb (12.0 - 16.0 G/DL) 9.3 L Hct (37 - 47 %) 28.2 L MCV (81.0 - 99.0 FL) 101.2 H MCH (27.0 - 31.0 PG) 33.4 H MCHC (33.0 - 37.0 G/DL) 33.0 RDW (11.5 - 14.5 %) 17.7 H Plt Count (130 - 400 /CUMM) 74 L MPV (7.4 - 10.4 FL) 10.4 Gran % (42.2 - 75.2 %) 59.6 Lymphocytes % (20.5 - 51.1 %) 24.1 Monocytes % (1.7 - 9.3 %) 13.7 H Eosinophils % (0 - 5 %) 2.2 Basophils % (0.0 - 2.0 %) 0.4 Absolute Granulocytes (1.4 - 6.5 /CUMM) 2.9 Absolute Lymphocytes (1.2 - 3.4 /CUMM) 1.2 Absolute Monocytes (0.10 - 0.60 /CUMM) 0.7 H Absolute Eosinophils (0.0 - 0.7 /CUMM) 0.1 Absolute Basophils (0.0 - 0.2 /CUMM) 0 10/19 10/19 1120 1120 Toxicology Urine Opiates Screen (>2000 NG/ML) < 100 Methadone Screen (>300 NG/ML) 65 Barbiturate Screen (>200 NG/ML) < 60 Ur Phencyclidine Scrn (>25 NG/ML) < 6.00 Amphetamines Screen (>1000 NG/ML) < 100 U Benzodiazepines Scrn (>200 NG/ML) < 85 Urine Cocaine Screen (>300 NG/ML) < 50 Urine Cannabis Screen (>50 NG/ML) < 5.00 Urines Urine Color (YEL,AMB,STR) YEL Urine Clarity (CLEAR) CLEAR Urine pH (5.0 - 8.0) 6.0 Ur Specific [place] (1.001 - 1.035) 1.020 Urine Protein (NEG,<30 MG/DL) NEG Urine Ketones (NEG) NEG Urine Nitrite (NEG) NEG Urine Bilirubin (NEG) NEG@ICTO Urine Urobilinogen (0.1 - 1.0 EU/dl) 0.2 Ur Leukocyte Esterase (NEG) SMALL H Ur Microscopic SEDIMENT EXAMINED Urine WBC (0 - 2 /HPF) 5-10 H Ur Epithelial Cells (NONE,FEW) RENAL H Urine Bacteria (NEG/NONE) FEW H Micro UA Comment [place] H Urine Hemoglobin (NEG) NEG Ur Random Creatinine (mg/dL) 171.2 Ur Random Sodium (30 - 90 mmol/L) < 5 L Ur Random Potassium (mmol/L) 34.6 Fraction Sodium Excret (<1% %) Urine Glucose (N MG/DL) NEG 10/19 10/18 10/18 0800 1421 UNK Chemistry Sodium (137 - 145 mmol/L) 137 Potassium (3.5 - 5.1 mmol/L) 5.9 H Chloride (98 - 107 mmol/L) 103 Carbon Dioxide (22 - 30 mmol/L) 20 L Anion Gap (5 - 16) 14 BUN (7 - 17 mg/dL) 82 H Creatinine (0.5 - 1.0 mg/dL) 4.4 H Estimated GFR (>60 ml/min) 10 L BUN/Creatinine Ratio (7 - 25 %) 18.6 Total Bilirubin (0.2 - 1.3 mg/dL) 2.4 H Direct Bilirubin (< 0.4 mg/dL) 1.5 H AST (14 - 36 U/L) 82 H ALT (9 - 52 U/L) 30 Alkaline Phosphatase (<127 U/L) 366 H Total Protein (6.3 - 8.2 g/dL) 6.3 Albumin (3.5 - 5.0 g/dL) 3.6 Coagulation PT (9.4 - 12.5 SEC) 14.0 H INR (0.90 - 1.19) 1.28 H Hematology CBC w Diff NO MAN DIFF REQ WBC (4.8 - 10.8 /CUMM) 6.4 RBC (4.20 - 5.40 /CUMM) 2.99 L Hgb (12.0 - 16.0 G/DL) 10.1 L Hct (37 - 47 %) 30.4 L MCV (81.0 - 99.0 FL) 101.7 H MCH (27.0 - 31.0 PG) 33.6 H MCHC (33.0 - 37.0 G/DL) 33.1 RDW (11.5 - 14.5 %) 18.0 H Plt Count (130 - 400 /CUMM) 91 L MPV (7.4 - 10.4 FL) 10.6 H Gran % (42.2 - 75.2 %) 55.7 Lymphocytes % (20.5 - 51.1 %) 25.9 Monocytes % (1.7 - 9.3 %) 14.1 H Eosinophils % (0 - 5 %) 3.1 Basophils % (0.0 - 2.0 %) 1.2 Absolute Granulocytes (1.4 - 6.5 /CUMM) 3.6 Absolute Lymphocytes (1.2 - 3.4 /CUMM) 1.7 Absolute Monocytes (0.10 - 0.60 /CUMM) 0.9 H Absolute Eosinophils (0.0 - 0.7 /CUMM) 0.2 Absolute Basophils (0.0 - 0.2 /CUMM) 0.1 Other Body Source Fluid WBC (0 - 5 /CUMM) 188 H Fld Mesothelial Cells (%) Fld Total RBCs Counted (0 /CUMM) 525 H Urines Ur Random Creatinine Cancelled Ur Random Sodium Cancelled Ur Random Potassium Cancelled Fraction Sodium Excret Cancelled 10/18 10/18 10/18 [facility] 0705 0315 Chemistry Sodium (137 - 145 mmol/L) 135 L Potassium (3.5 - 5.1 mmol/L) 5.1 Chloride (98 - 107 mmol/L) 104 Carbon Dioxide (22 - 30 mmol/L) 22 Anion Gap (5 - 16) 10 BUN (7 - 17 mg/dL) 77 H Creatinine (0.5 - 1.0 mg/dL) 4.5 H Estimated GFR (>60 ml/min) 9 L BUN/Creatinine Ratio (7 - 25 %) 17.1 Lactic Acid (0.7 - 2.1 mmol/L) 1.3 Total Bilirubin (0.2 - 1.3 mg/dL) 1.9 H Direct Bilirubin (< 0.4 mg/dL) 1.0 H AST (14 - 36 U/L) 80 H ALT (9 - 52 U/L) 32 Alkaline Phosphatase (<127 U/L) 335 H Total Protein (6.3 - 8.2 g/dL) 5.8 L Albumin (3.5 - 5.0 g/dL) 3.0 L Hematology CBC w Diff NO MAN DIFF REQ WBC (4.8 - 10.8 /CUMM) 5.9 RBC (4.20 - 5.40 /CUMM) 3.10 L Hgb (12.0 - 16.0 G/DL) 10.5 L Hct (37 - 47 %) 31.5 L MCV (81.0 - 99.0 FL) 101.5 H MCH (27.0 - 31.0 PG) 33.8 H MCHC (33.0 - 37.0 G/DL) 33.3 RDW (11.5 - 14.5 %) 17.9 H Plt Count (130 - 400 /CUMM) 85 L MPV (7.4 - 10.4 FL) 10.1 Gran % (42.2 - 75.2 %) 59.1 Lymphocytes % (20.5 - 51.1 %) 23.7 Monocytes % (1.7 - 9.3 %) 14.4 H Eosinophils % (0 - 5 %) 2.4 Basophils % (0.0 - 2.0 %) 0.4 Absolute Granulocytes (1.4 - 6.5 /CUMM) 3.5 Absolute Lymphocytes (1.2 - 3.4 /CUMM) 1.4 Lymphocytes (%) 22 Absolute Monocytes (0.10 - 0.60 /CUMM) 0.8 H Absolute Eosinophils (0.0 - 0.7 /CUMM) 0.1 Absolute Basophils (0.0 - 0.2 /CUMM) 0 % Normal PMNs (%) 20 Other Body Source Fluid Glucose (mg/dL) 144 Fluid Total Protein (g/dL) < 2.0 Fluid Albumin (g/dL) < 1.0 Fluid LDH (U/L) 143 Fluid Amylase (U/L) < 30 10/17 10/17 10/17 2127 1818 1800 Chemistry Sodium (137 - 145 mmol/L) 139 Potassium (3.5 - 5.1 mmol/L) 5.2 H Chloride (98 - 107 mmol/L) 102 Carbon Dioxide (22 - 30 mmol/L) 22 Anion Gap (5 - 16) 16 BUN (7 - 17 mg/dL) 75 H Creatinine (0.5 - 1.0 mg/dL) 4.5 H Estimated GFR (>60 ml/min) 9 L BUN/Creatinine Ratio (7 - 25 %) 16.7 Glucose (65 - 99 mg/dL) 172 H Lactic Acid (0.7 - 2.1 mmol/L) 2.4 H Calcium (8.4 - 10.2 mg/dL) 11.1 H Phosphorus (2.5 - 4.5 mg/dL) 4.0 Magnesium (1.6 - 2.3 mg/dL) 2.1 Total Bilirubin (0.2 - 1.3 mg/dL) 2.5 H Direct Bilirubin (< 0.4 mg/dL) 1.3 H AST (14 - 36 U/L) 100 H ALT (9 - 52 U/L) 18 Alkaline Phosphatase (<127 U/L) 385 H Ammonia (9 - 30 umol/L) 101 H Troponin I (< 0.11 ng/ml) 0.03 Total Protein (6.3 - 8.2 g/dL) 6.8 Albumin (3.5 - 5.0 g/dL) 3.8 Globulin (1.9 - 4.2 gm/dL) 3.0 Albumin/Globulin Ratio (1.1 - 2.2 %) 1.3 Amylase (30 - 110 U/L) 53 Lipase (23 - 300 U/L) 269 25-OH Vitamin D Total (30 - 100 ng/ml) 46.6 PTH Intact (18.4 - 80.1 pg/ML) 112.2 H Coagulation PT (9.4 - 12.5 SEC) 13.5 H INR (0.90 - 1.19) 1.24 H APTT (25 - 37 SEC) 33 Hematology CBC w Diff NO MAN DIFF REQ WBC (4.8 - 10.8 /CUMM) 7.6 RBC (4.20 - 5.40 /CUMM) 3.66 L Hgb (12.0 - 16.0 G/DL) 12.2 Hct (37 - 47 %) 37.3 MCV (81.0 - 99.0 FL) 101.8 H MCH (27.0 - 31.0 PG) 33.2 H MCHC (33.0 - 37.0 G/DL) 32.7 L RDW (11.5 - 14.5 %) 18.0 H Plt Count (130 - 400 /CUMM) 142 MPV (7.4 - 10.4 FL) 10.5 H Gran % (42.2 - 75.2 %) 66.9 Lymphocytes % (20.5 - 51.1 %) 18.1 L Monocytes % (1.7 - 9.3 %) 13.3 H Eosinophils % (0 - 5 %) 1.5 Basophils % (0.0 - 2.0 %) 0.2 Absolute Granulocytes (1.4 - 6.5 /CUMM) 5.1 Absolute Lymphocytes (1.2 - 3.4 /CUMM) 1.4 Absolute Monocytes (0.10 - 0.60 /CUMM) 1.0 H Absolute Eosinophils (0.0 - 0.7 /CUMM) 0.1 Absolute Basophils (0.0 - 0.2 /CUMM) 0 Toxicology Methadone Screen Cancelled Barbiturate Screen Cancelled Ur Phencyclidine Scrn Cancelled Amphetamines Screen Cancelled U Benzodiazepines Scrn Cancelled Urine Cocaine Screen Cancelled Urine Cannabis Screen Cancelled Urines Urine Color Cancelled Urine Clarity Cancelled Urine pH Cancelled Ur Specific [place] Cancelled Urine Protein Cancelled Urine Ketones Cancelled Urine Nitrite Cancelled Urine Bilirubin Cancelled Urine Urobilinogen Cancelled Ur Leukocyte Esterase Cancelled Ur Microscopic Cancelled Urine Hemoglobin Cancelled Urine Glucose Cancelled
[2017-10-20 14:28] VITALS: BP 120/60
[2017-10-20 21:53] VITALS: BP 130/70
[2017-10-21 06:17] VITALS: BP 120/60
[2017-10-21 08:33] LABS: ABSOLUTE BASOPHIL COUNT 0 /CUMM (0.0-0.2); ABSOLUTE EOSINOPHIL COUNT 0.1 /CUMM (0.0-0.7); ABSOLUTE LYMPH COUNT 0.9 /CUMM (1.2-3.4); ABSOLUTE MONOCYTE COUNT 0.7 /CUMM (0.10-0.60); BASOPHIL % 0.7 % (0.0-2.0); EOSINOPHIL % 2.3 % (0-5); GRANULOCYTE % 63.6 % (42.2-75.2); HEMATOCRIT 28.3 % (37-47); MEAN CORPUSCULAR HGB 33.5 PG (27.0-31.0); MEAN CORPUSCULAR HGB CONC 33.3 G/DL (33.0-37.0); MEAN CORPUSCULAR VOLUME 100.6 FL (81.0-99.0); MEAN PLATELET VOLUME 10.2 FL (7.4-10.4); PLATELET COUNT 68 /CUMM (130-400); RBC DISTRIBUTION WIDTH 17.2 % (11.5-14.5); RED BLOOD CELL CT 2.81 /CUMM (4.20-5.40); WHITE BLOOD CELL COUNT 4.8 /CUMM (4.8-10.8)
[2017-10-21 08:33] LABS: PT 12.4 SEC (9.4-12.5)
--- NOTE | 2017-10-21 09:14 | PN- Housestaff ---
Subjective Follow-up For: -AMS likely secondary to hyperammonemia secondary to SORIA cirrhosis -Electrolytes abnormalities: Hypercalcemia, hyperkalemia -JOHN on CKD: secondary to hepatorenal syndrome, dehydration Subjective: Patient more nauseous today, mildly confused, very lethargic. Patient's vomited today. She noted that she did not sleep last night. She denies any shortness of breath, chest pain, belly pain. Pt did have a bowel movement yesterday. Review of Systems Constitutional: Reports: malaise, weakness. EENTM: Reports: no symptoms. Cardiovascular: Reports: no symptoms. Respiratory: Reports: no symptoms. Gastrointestinal: Reports: distention, nausea, vomiting. Genitourinary: Reports: no symptoms. Musculoskeletal: Reports: no symptoms. Skin: Reports: no symptoms. Neurological/Psychological: Reports: no symptoms. Hematologic/Endocrine: Reports: no symptoms. Objective Last 24 Hrs of Vital Signs/I&O Vital Signs Date Time Temp Pulse Resp B/P B/P Pulse O2 O2 Flow FiO2 Mean Ox Delivery Rate 10/21 1432 97.5 90 18 100/55 97 Room Air 10/21 0929 96 110/68 10/21 0800 Room Air 10/21 0617 97.9 88 20 120/60 96 Room Air 10/20 2153 97.8 96 20 130/70 98 Room Air Intake & Output 10/21 1600 10/21 0800 10/21 0000 Intake Total 120 125 200 Output Total 200 Balance 120 125 0 Intake, IV 75 100 Intake, Oral 120 50 100 Output, 50 Emesis Output, Urine 150 Physical Exam General Appearance: Alert, Cooperative, No Acute Distress Skin: No Rashes, No Breakdown, No Significant Lesion Skin Temp/Moisture Exam: Warm/Dry HEENT: Atraumatic, PERRLA, EOMI, Mucous Membr. moist/pink Cardiovascular: Regular Rate, Normal S1, Normal S2, No Murmurs Lungs: Clear to Auscultation, Normal Air Movement Abdomen: Normal Bowel Sounds, No Masses, distended abdomen, shifting dullness, no tenderness Neurological: Normal Speech Extremities: No Clubbing, No Cyanosis, Normal Pulses Vascular: Normal Pulses, Pulses Symmetrical Current Medications: Current Medications Sig/Jennifer Start time Last Medication Dose Route Stop Time Status Admin Albumin Human 12.5 GM Q8 10/18 0804 DC 10/21 IV 0620 Allopurinol 100 MG DAILY 10/18 09 AC 10/21 PO 0929 Amlodipine Besylate 10 MG DAILY 10/18 0900 AC 10/21 PO 09 Atorvastatin Calcium 5 MG 1700 10/18 1700 AC 10/21 PO 1732 Carbidopa/Levodopa 1 TAB TID 10/18 09 AC 10/21 PO 1514 Dextrose 25 GM ONCE ONE 10/21 1999 DC 10/20 IV 10/20 Duloxetine HCl 60 MG TUES THURS SAT 10/19 09 AC 10/21 PO 0929 Fentanyl Citrate 12 MCG Q3D 10/18 0015 AC 10/20 TOP 2334 Insulin Aspart 0 TIDAC 10/18 0800 AC 10/20 SC 1232 Insulin Detemir 8 UNITS DAILY 10/18 09 AC 10/21 SC 09 Insulin Human Regular 10 UNITS ONCE ONE 10/21 1999 DC 10/20 IV 10/20 Lactulose 1 BOT Q8 10/21 2200 AC HI Lactulose 20 GM Q6 10/21 1800 AC 10/21 PO 1733 Lactulose 1 BOT Q4 10/21 1400 DC 10/21 HI 1515 Lactulose 20 GM Q6 10/20 1200 DC 10/21 PO 0623 Levothyroxine Sodium 0.175 MG DAILY AC 10/18 0700 AC 10/21 PO 0622 Octreotide Acetate 100 MCG TID 10/20 2100 AC 10/21 SC 1513 Omeprazole 40 MG DAILY AC 10/18 0700 AC 10/21 PO 0622 Ondansetron HCl 4 MG .STK-MED ONE 10/21 0639 DC IM 10/21 0640 Ondansetron HCl 4 MG ONCE ONE 10/20 2145 CAN PO 10/20 2146 Ondansetron HCl 4 MG Q6-PRN PRN 10/20 2145 DC 10/21 IV 0641 Promethazine HCl 12.5 MG Q6P PRN 10/21 1100 AC IV 10/28 1059 Rifaximin 550 MG BID 10/18 001 AC 10/21 PO 0929 Trimethobenzamide HCl 200 MG 4 TIMES/DAY 10/21 1031 DC IM Last 24 Hrs of Lab/Unruly Results Last 24 Hrs of Labs/Mics: Laboratory Tests 10/21/17 1645: Ammonia 66 H 10/21/17 0755: CBC w Diff NO MAN DIFF REQ, RBC 2.81 L, MCV 100.6 H, MCH 33.5 H, MCHC 33.3, RDW 17.2 H, MPV 10.2, Gran % 63.6, Lymphocytes % 18.5 L, Monocytes % 14.9 H, Eosinophils % 2.3, Basophils % 0.7, Absolute Granulocytes 3.0, Absolute Lymphocytes 0.9 L, Absolute Monocytes 0.7 H, Absolute Eosinophils 0.1, Absolute Basophils 0 10/21/17 0715: Anion Gap 12, Estimated GFR 10 L, BUN/Creatinine Ratio 20.5, Total Bilirubin 2.6 H, Direct Bilirubin 1.4 H, AST 88 H, ALT 35, Alkaline Phosphatase 383 H, Total Protein 6.1 L, Albumin 3.7, PT 12.4, INR 1.14 10/20/172139: Anion Gap 16, Estimated GFR 10 L, BUN/Creatinine Ratio 19.1 10/20/172009: Anion Gap 13, Estimated GFR 10 L, BUN/Creatinine Ratio 20.0 Assessment/Plan Assessment: Patient is 81-year-old female presented with nausea, vomiting, abdominal distention and altered mental status. Patient was recently admitted here with similar complaints, at the time found to have a UTI which had likely precipitated an episode of acute hepatic encephalopathy. Patient had abdominal paracentesis done as well, 6 L of transudative fluid was removed. SBP was ruled out. She was put on lactulose as well and over time, her AMS resolved. She was discharged on rifaxamin. She had continued therapeutic paracentesis outpatient. However, [employer] she developed nausea, vomiting, and AMS again. 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, Ph Ex at admission: No fever, significantfor HI 100, saturating well in room air Labs at admission: WC 7.6, Hb 12.2, MCV 101.8, potassium 5.2, again 75, creatinine 4.5,calcium 11.1 , total bili 2.5, AST 100, alk phosphatase 385, ammonia 101, INR 1.2 Imagings at admission: NO imaging Problem List: AMS likely secondary to hyperammonemia secondary to SORIA cirrhosis Electrolytes abnormalities: Hypercalcemia, hyperkalemia JOHN on CKD: secondary to hepatorenal syndrome, dehydration Plan: AMS likely secondary to hyperammonemia secondary to SORIA cirrhosis or hypercalcemia (the below): Patient was started on lactulose and continued on her Xifaxan. She was found to have ammonia level of 101 on admission. Yesterday liver function tests decreased numbers - total bili level was found to have decreased from 2.5 to 1.9, direct bilirubin decreased from 1.3 to 1.0, AST decreased from 100 to 80, alkaline phosphatase from 385 to 335. LFTs are largely unchanged today. Patient continues to be on albumin IV. Patient is afebrile with no white blood cell count, mo evidence SBP on diagnostic paracentesis. Patient is on a low sodium less than 2 g, less than 2 g K diet and we are continuing the Xifaxan and lactulose, titrate 2-3 soft bowel movements a day with holding parameters for diarrhea. Patient has not however had a BM in 6 days. Mental status is good today, not encephalopathic. -Diagnostic paracentesis showed no SBP and ascites secondary to portal hypertension with SAAG > 1.1 -Today patient is to undergo large volume paracentesis. Cr has not changed from yesterday so we will go ahead. Blood pressure and other vitals are stable. Paracentesis will be done with 25-50 grams of albumin infusion concurrently. -Vital signs every shift -As patient is lethargic and still only having minimal bowel movements, we will start rectal lactulose on top of her by mouth lactulose. We'll make her nothing by mouth for now. -Follow mental status with physical exam and not with repeat ammonia levels. -Follow evans cultures -Follow LFTs, INR's, BEP, CBCs (hb and plt counts) -Hold fluids at this time Electrolytes abnormalities: Hypercalcemia, hyperkalemia -Monitor levels and can dose potassium binder and/or Sensipar if needed -Today potassium is 5.9, yesterday 5.5. We gave one dose of kayexelate earlier and will give another as per renal before drawing another K level later tonight. Of note, patient was not experiencing nausea any longer this morning. If she is noted to be experiencing nausea again, we will try Veltassa for K>5.6. -Parathyroid hormone level is 112 with elevated calcium, this has been true in previous admissions as well. The patient also has an elevated alkaline phosphatase level which could very well be liver or could be an element of bone breakdown. Hypercalcemia can also be secondary to malignancy. Can do alkaline phosphatase isoenzymes, outpatient workup with referral to endocrinology for potential hyperparathyroidism. JOHN on CKD: secondary to hepatorenal syndrome, dehydration. Serum creatinine has recently been in the mid 2's but been elevated on this admission in the fours. Urine sodium is less than 5, suggestive of heaptorenal syndrome, FENA is low. The body is attempting to preserve sodium and water secondary to kidneys not "seeing" the fluid volume, as much of it remains in the abdomen (ascitic fluid) and is doing so efficiently, ie not an intrinsic problem within the kidneys. -We will stop albumin today, patient is currently on octreotide. We will hold midodrine as patient's blood pressures are in the lower range. -Follow BEP -Patent and today is 4.2 -Appreciate nephrology consult -Monitor in's and out's, patient is incontinent of urine and needs straight cath as needed if urine needs to be drawn for labs. Asymptomatic UTI -Monitor CBC and vitals -Follow of antibiotics Gout history: -Due to JOHN, we have decreased dose of allopurinol Heart healthy DVT ppx: alps and pharmacologic DNR/DNI Problem List: 1. Liver failure 2. Hepatic encephalopathy 3. Nausea 4. Ascites Pain Ratin Pain Location: na Pain Goal: Remain pain free Pain Plan: na Tomorrow's Labs & Rationales: cbc bep inr lft
--- NOTE | 2017-10-21 10:37 | PN- Nephrology ---
Assessment/Plan Nephrology Assessment: 1. JOHN/CKD secondary to hepatorenal syndrome 2. Hyperkalemia -improved 3. Hypercalcemia -mild and stable 4. Cirrhosis with ascites and hepatic encephalopathy Suggestion: 1. Continue current measures 2. Prognosis very poor with little chance of recovery; would consider palliative care Subjective Subjective: Patient more lethargic today but is able to state that she continues to have nausea and abdominal discomfort. Bilirubin rising albeit very slowly. Renal function essentially unchanged and she appears to be oliguric despite reasonably normal blood pressures. Octreotide has been started without midodrine. She continues to receive IV 25% albumin every 8 hours. Objective Vital Signs and I&Os Vital Signs Date Time Temp Pulse Resp B/P B/P Pulse O2 O2 Flow FiO2 Mean Ox Delivery Rate 10/21 0929 96 110/68 10/21 0617 97.9 88 20 120/60 96 Room Air 10/20 2153 97.8 96 20 130/70 98 Room Air 10/20 1428 97.0 82 20 120/60 98 10/20 1231 93 110/60 Intake & Output 10/21 1600 10/21 0400 10/20 1600 10/20 0400 10/19 1600 10/19 0400 Intake Total 029 235 2028 410 840 240 Output Total 200 250 100 Balance 125 0 830 410 740 240 Intake, IV 75 100 100 50 Intake, Oral 50 100 980 360 840 240 Number 3 1 Bowel Movements Output, 50 250 Emesis Output, Urine 150 100 Patient 209 lb Weight Physical Exam: General: Chronically ill-appearing, elderly white female lethargic although arousable Skin: No rash or jaundice HEENT: Conjunctivae pale, sclerae anicteric, mucous membranes dry Neck: Without masses or thyromegaly, no supraclavicular or cervical adenopathy Chest: Diminished breath sounds at bases, no rales or rhonchi Heart: Regular rate and rhythm without S3 or rub Abdomen: Soft with ascites, no palpable masses or organomegaly Extremities: 1+ lower extremity edema bilaterally Neuro: Lethargic, no focal findings, + asterixis (more prominent today), no myoclonus Current Medications: Current Medications Sig/Jennifer Start time Last Medication Dose Route Stop Time Status Admin Albumin Human 12.5 GM Q8 10/18 0804 AC 10/21 IV 0620 Allopurinol 100 MG DAILY 10/18 09 AC 10/21 PO 0929 Amlodipine Besylate 10 MG DAILY 10/18 0900 AC 10/21 PO 0929 Atorvastatin Calcium 5 MG 1700 10/18 1700 AC 10/20 PO 1850 Carbidopa/Levodopa 1 TAB TID 10/18 09 AC 10/21 PO 0929 Dextrose 25 GM ONCE ONE 10/21 1999 DC 10/20 IV 10/20 Duloxetine HCl 60 MG TUES THURS SAT 10/19 09 AC 10/21 PO 0929 Fentanyl Citrate 12 MCG Q3D 10/18 0015 10/20 TOP 2334 Insulin Aspart 0 TIDAC 10/18 08 AC 10/20 SC 1232 Insulin Detemir 8 UNITS DAILY 10/18 09 AC 10/21 SC 0929 Insulin Human Regular 10 UNITS ONCE ONE 10/21 1999 DC 10/20 IV 10/20 Lactulose 1 BOT Q4 10/21 1400 UNVr AK Lactulose 20 GM Q6 10/20 1200 AC 10/21 PO 0623 Levothyroxine Sodium 0.175 MG DAILY AC 10/18 0700 AC 10/21 PO 0622 Octreotide Acetate 100 MCG TID 10/20 2100 AC 10/21 SC 0930 Omeprazole 40 MG DAILY AC 10/18 0700 AC 10/21 PO 0622 Ondansetron HCl 4 MG ONCE ONE 10/20 2145 CAN PO 10/20 214 Ondansetron HCl 4 MG Q6-PRN PRN 10/20 2144 DC 10/21 IV 0641 Patient Medication 1 ED ONE ONE 10/20 1145 DC Teaching ED 10/20 1146 Rifaximin 550 MG BID 10/18 0015 AC 10/21 PO 0929 Trimethobenzamide HCl 200 MG 4 TIMES/DAY 10/21 1031 UNVr IM Results Pertinent Lab Results: Laboratory Tests 10/21 10/21 10/20 10/20 0755 0715 2139 2009 Chemistry Sodium (137 - 145 mmol/L) 137 138 134 L Potassium (3.5 - 5.1 mmol/L) 5.1 5.1 5.5 H Chloride (98 - 107 mmol/L) 103 100 101 Carbon Dioxide (22 - 30 mmol/L) 22 21 L 21 L Anion Gap (5 - 16) 12 16 13 BUN (7 - 17 mg/dL) 86 H 82 H 84 H Creatinine (0.5 - 1.0 mg/dL) 4.2 H 4.3 H 4.2 H Estimated GFR (>60 ml/min) 10 L 10 L 10 L BUN/Creatinine Ratio (7 - 25 %) 20.5 19.1 20.0 Total Bilirubin (0.2 - 1.3 mg/dL) 2.6 H Direct Bilirubin (< 0.4 mg/dL) 1.4 H AST (14 - 36 U/L) 88 H ALT (9 - 52 U/L) 35 Alkaline Phosphatase (<127 U/L) 383 H Total Protein (6.3 - 8.2 g/dL) 6.1 L Albumin (3.5 - 5.0 g/dL) 3.7 Coagulation PT (9.4 - 12.5 SEC) 12.4 INR (0.90 - 1.19) 1.14 Hematology CBC w Diff NO MAN DIFF REQ WBC (4.8 - 10.8 /CUMM) 4.8 RBC (4.20 - 5.40 /CUMM) 2.81 L Hgb (12.0 - 16.0 G/DL) 9.4 L Hct (37 - 47 %) 28.3 L MCV (81.0 - 99.0 FL) 100.6 H MCH (27.0 - 31.0 PG) 33.5 H MCHC (33.0 - 37.0 G/DL) 33.3 RDW (11.5 - 14.5 %) 17.2 H Plt Count (130 - 400 /CUMM) 68 L MPV (7.4 - 10.4 FL) 10.2 Gran % (42.2 - 75.2 %) 63.6 Lymphocytes % (20.5 - 51.1 %) 18.5 L Monocytes % (1.7 - 9.3 %) 14.9 H Eosinophils % (0 - 5 %) 2.3 Basophils % (0.0 - 2.0 %) 0.7 Absolute Granulocytes (1.4 - 6.5 /CUMM) 3.0 Absolute Lymphocytes (1.2 - 3.4 /CUMM) 0.9 L Absolute Monocytes (0.10 - 0.60 /CUMM) 0.7 H Absolute Eosinophils (0.0 - 0.7 /CUMM) 0.1 Absolute Basophils (0.0 - 0.2 /CUMM) 0 10/20 10/19 10/19 0758 2315 1600 Chemistry Sodium (137 - 145 mmol/L) 135 L 134 L Cancelled Potassium (3.5 - 5.1 mmol/L) 5.9 H 5.5 H Cancelled Chloride (98 - 107 mmol/L) 102 101 Cancelled Carbon Dioxide (22 - 30 mmol/L) 22 22 Cancelled Anion Gap (5 - 16) 10 11 Cancelled BUN (7 - 17 mg/dL) 81 H 84 H Cancelled Creatinine (0.5 - 1.0 mg/dL) 4.4 H 4.3 H Cancelled Estimated GFR (>60 ml/min) 10 L 10 L BUN/Creatinine Ratio (7 - 25 %) 18.4 19.5 Cancelled Calcium (8.4 - 10.2 mg/dL) 10.6 H 10.8 H Phosphorus (2.5 - 4.5 mg/dL) 3.6 3.7 Magnesium (1.6 - 2.3 mg/dL) 2.2 2.2 Total Bilirubin (0.2 - 1.3 mg/dL) 2.5 H Direct Bilirubin (< 0.4 mg/dL) 1.3 H AST (14 - 36 U/L) 79 H ALT (9 - 52 U/L) 33 Alkaline Phosphatase (<127 U/L) 368 H Total Protein (6.3 - 8.2 g/dL) 5.9 L Albumin (3.5 - 5.0 g/dL) 3.5 Coagulation PT (9.4 - 12.5 SEC) 14.2 H INR (0.90 - 1.19) 1.30 H Hematology CBC w Diff NO MAN DIFF REQ WBC (4.8 - 10.8 /CUMM) 4.9 RBC (4.20 - 5.40 /CUMM) 2.78 L Hgb (12.0 - 16.0 G/DL) 9.3 L Hct (37 - 47 %) 28.2 L MCV (81.0 - 99.0 FL) 101.2 H MCH (27.0 - 31.0 PG) 33.4 H MCHC (33.0 - 37.0 G/DL) 33.0 RDW (11.5 - 14.5 %) 17.7 H Plt Count (130 - 400 /CUMM) 74 L MPV (7.4 - 10.4 FL) 10.4 Gran % (42.2 - 75.2 %) 59.6 Lymphocytes % (20.5 - 51.1 %) 24.1 Monocytes % (1.7 - 9.3 %) 13.7 H Eosinophils % (0 - 5 %) 2.2 Basophils % (0.0 - 2.0 %) 0.4 Absolute Granulocytes (1.4 - 6.5 /CUMM) 2.9 Absolute Lymphocytes (1.2 - 3.4 /CUMM) 1.2 Absolute Monocytes (0.10 - 0.60 /CUMM) 0.7 H Absolute Eosinophils (0.0 - 0.7 /CUMM) 0.1 Absolute Basophils (0.0 - 0.2 /CUMM) 0 10/19 10/19 1120 1120 Toxicology Urine Opiates Screen (>2000 NG/ML) < 100 Methadone Screen (>300 NG/ML) 65 Barbiturate Screen (>200 NG/ML) < 60 Ur Phencyclidine Scrn (>25 NG/ML) < 6.00 Amphetamines Screen (>1000 NG/ML) < 100 U Benzodiazepines Scrn (>200 NG/ML) < 85 Urine Cocaine Screen (>300 NG/ML) < 50 Urine Cannabis Screen (>50 NG/ML) < 5.00 Urines Urine Color (YEL,AMB,STR) YEL Urine Clarity (CLEAR) CLEAR Urine pH (5.0 - 8.0) 6.0 Ur Specific [place] (1.001 - 1.035) 1.020 Urine Protein (NEG,<30 MG/DL) NEG Urine Ketones (NEG) NEG Urine Nitrite (NEG) NEG Urine Bilirubin (NEG) NEG@ICTO Urine Urobilinogen (0.1 - 1.0 EU/dl) 0.2 Ur Leukocyte Esterase (NEG) SMALL H Ur Microscopic SEDIMENT EXAMINED Urine WBC (0 - 2 /HPF) 5-10 H Ur Epithelial Cells (NONE,FEW) RENAL H Urine Bacteria (NEG/NONE) FEW H Micro UA Comment BUDDING YEAST H Urine Hemoglobin (NEG) NEG Ur Random Creatinine (mg/dL) 171.2 Ur Random Sodium (30 - 90 mmol/L) < 5 L Ur Random Potassium (mmol/L) 34.6 Fraction Sodium Excret (<1% %) Urine Glucose (N MG/DL) NEG 10/19 10/18 0800 1421 Chemistry Sodium (137 - 145 mmol/L) 137 Potassium (3.5 - 5.1 mmol/L) 5.9 H Chloride (98 - 107 mmol/L) 103 Carbon Dioxide (22 - 30 mmol/L) 20 L Anion Gap (5 - 16) 14 BUN (7 - 17 mg/dL) 82 H Creatinine (0.5 - 1.0 mg/dL) 4.4 H Estimated GFR (>60 ml/min) 10 L BUN/Creatinine Ratio (7 - 25 %) 18.6 Total Bilirubin (0.2 - 1.3 mg/dL) 2.4 H Direct Bilirubin (< 0.4 mg/dL) 1.5 H AST (14 - 36 U/L) 82 H ALT (9 - 52 U/L) 30 Alkaline Phosphatase (<127 U/L) 366 H Total Protein (6.3 - 8.2 g/dL) 6.3 Albumin (3.5 - 5.0 g/dL) 3.6 Coagulation PT (9.4 - 12.5 SEC) 14.0 H INR (0.90 - 1.19) 1.28 H Hematology CBC w Diff NO MAN DIFF REQ WBC (4.8 - 10.8 /CUMM) 6.4 RBC (4.20 - 5.40 /CUMM) 2.99 L Hgb (12.0 - 16.0 G/DL) 10.1 L Hct (37 - 47 %) 30.4 L MCV (81.0 - 99.0 FL) 101.7 H MCH (27.0 - 31.0 PG) 33.6 H MCHC (33.0 - 37.0 G/DL) 33.1 RDW (11.5 - 14.5 %) 18.0 H Plt Count (130 - 400 /CUMM) 91 L MPV (7.4 - 10.4 FL) 10.6 H Gran % (42.2 - 75.2 %) 55.7 Lymphocytes % (20.5 - 51.1 %) 25.9 Monocytes % (1.7 - 9.3 %) 14.1 H Eosinophils % (0 - 5 %) 3.1 Basophils % (0.0 - 2.0 %) 1.2 Absolute Granulocytes (1.4 - 6.5 /CUMM) 3.6 Absolute Lymphocytes (1.2 - 3.4 /CUMM) 1.7 Absolute Monocytes (0.10 - 0.60 /CUMM) 0.9 H Absolute Eosinophils (0.0 - 0.7 /CUMM) 0.2 Absolute Basophils (0.0 - 0.2 /CUMM) 0.1 Urines Ur Random Creatinine Cancelled Ur Random Sodium Cancelled Ur Random Potassium Cancelled Fraction Sodium Excret Cancelled
--- NOTE | 2017-10-21 12:33 | PN- Att Addend ---
Attending Addendum Attending Brief Note Patient seen and examined. Plan of care discussed with the medical team and the patient. Available lab work and radiology test reports were reviewed. Patient seemed to be more lethergic/sleep today. she is arousable and oriented. She denies any difficulty breathing fever or chills. She has not moved bowels yet. She had trouble sleeping last night. She continues to have nausea but no vomiting. Patient status post large volume paracentesis yesterday. Exam: General: Patient appears sleepy and lethargic and oriented without any distress CVS: S1 plus S2 without any murmur or gallops Chest: Few scattered crepitation without any wheeze. There is no respiratory distress. Abdomen: Soft and distended but non-tender, bowel sound present, no guarding or rebound ASSISTANT EDITOR: Awake alert oriented without any focal neuro deficit and follows commands appropriately Extremities: 1+ bilateral edema; no clubbing or cyanosis noted ; bilateral asterixis noted Assessment * Recurrent ascites secondary to decompensated cirrhosis- patient status post diagnostic ascitic tap today; based on chemistry labs the fluid appears to be a transudate and culture reports are negative so far * Hepatitic encephalopathy- has worsened despite treatment and has now moved any bowel-she needs escalation of care with a lactulose enema * Acute kidney injury on chronic kidney disease,suspected hepatorenal syndrome, creatinine slightly improved * Hypercalcemia due to hyperparathyroidism; patient currently does not meet criteria for surgery; she should be watched conservatively * Elevated bilirubin * Hx of DM, HTN, HLD, CAD, * 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, * portal hypertension, * ROD, * hypothyroidism, * gout, * spinal stenosis, * CKD * Hyperkalemia- likely due to worsening renal failure Plan * Continue albumin * Continue Low potassium diet * Consider Kayexalate 70 g daily; recheck potassium in a.m. * continue rifaximin and lactulose; lactulose dose should be increased since patient has no motor bowel; add lactulose enema * recheck labs in am * Continue to monitor mental status closely; * Change Zofran to Tigan for nausea * Prognosis remains poor Current Medications Sig/Jennifer Start time Last Medication Dose Route Stop Time Status Admin Albumin Human 12.5 GM Q8 10/18 08 AC 10/21 IV 0620 Allopurinol 100 MG DAILY 10/18 899 AC 10/21 PO 09 Amlodipine Besylate 10 MG DAILY 10/18 0800 AC 10/21 PO 0929 Atorvastatin Calcium 5 MG 1700 10/18 1700 AC 10/20 PO 1850 Carbidopa/Levodopa 1 TAB TID 10/18 09 AC 10/21 PO 0929 Dextrose 25 GM ONCE ONE 10/21 1999 DC 10/20 IV 10/20 Duloxetine HCl 60 MG TUES THURS SAT 10/19 09 AC 10/21 PO 0929 Fentanyl Citrate 12 MCG Q3D 10/18 0015 10/20 TOP 2334 Insulin Aspart 0 TIDAC 10/18 0800 10/20 SC 1232 Insulin Detemir 8 UNITS DAILY 10/18 09 10/21 SC 09 Insulin Human Regular 10 UNITS ONCE ONE 10/21 1999 DC 10/20 IV 10/20 Lactulose 1 BOT Q4 10/21 1400 AC HI Lactulose 20 GM Q6 10/20 1200 DC 10/21 PO 0623 Levothyroxine Sodium 0.175 MG DAILY AC 10/18 0700 AC 10/21 PO 0622 Octreotide Acetate 100 MCG TID 10/20 2100 10/21 SC 0930 Omeprazole 40 MG DAILY AC 10/18 0700 10/21 PO 0622 Ondansetron HCl 4 MG ONCE ONE 10/20 2145 CAN PO 10/20 214 Ondansetron HCl 4 MG Q6-PRN PRN 10/20 214 DC 10/21 IV 0641 Promethazine HCl 12.5 MG Q6P PRN 10/21 1100 AC IV 10/28 1059 Rifaximin 550 MG BID 10/18 0015 AC 10/21 PO 0929 Trimethobenzamide HCl 200 MG 4 TIMES/DAY 10/21 1031 DC Laboratory Tests 10/21/17 0755: CBC w Diff NO MAN DIFF REQ, RBC 2.81 L, MCV 100.6 H, MCH 33.5 H, MCHC 33.3, RDW 17.2 H, MPV 10.2, Gran % 63.6, Lymphocytes % 18.5 L, Monocytes % 14.9 H, Eosinophils % 2.3, Basophils % 0.7, Absolute Granulocytes 3.0, Absolute Lymphocytes 0.9 L, Absolute Monocytes 0.7 H, Absolute Eosinophils 0.1, Absolute Basophils 0 10/21/17 0715: Anion Gap 12, Estimated GFR 10 L, BUN/Creatinine Ratio 20.5, Total Bilirubin 2.6 H, Direct Bilirubin 1.4 H, AST 88 H, ALT 35, Alkaline Phosphatase 383 H, Total Protein 6.1 L, Albumin 3.7, PT 12.4, INR 1.14 10/20/17 2140: Anion Gap 16, Estimated GFR 10 L, BUN/Creatinine Ratio 19.1 10/20/172009: Anion Gap 13, Estimated GFR 10 L, BUN/Creatinine Ratio 20.0 10/20/17 0758: Anion Gap 10, Estimated GFR 10 L, BUN/Creatinine Ratio 18.4, Calcium 10.6 H, Phosphorus 3.6, Magnesium 2.2, Total Bilirubin 2.5 H, Direct Bilirubin 1.3 H, AST 79 H, ALT 33, Alkaline Phosphatase 368 H, Total Protein 5.9 L, Albumin 3.5, PT 14.2 H, INR 1.30 H, CBC w Diff NO MAN DIFF REQ, RBC 2.78 L, MCV 101.2 H, MCH 33.4 H, MCHC 33.0, RDW 17.7 H, MPV 10.4, Gran % 59.6, Lymphocytes % 24.1, Monocytes % 13.7 H, Eosinophils % 2.2, Basophils % 0.4, Absolute Granulocytes 2.9, Absolute Lymphocytes 1.2, Absolute Monocytes 0.7 H, Absolute Eosinophils 0.1, Absolute Basophils 0 10/19/17 2315: Anion Gap 11, Estimated GFR 10 L, BUN/Creatinine Ratio 19.5, Calcium 10.8 H, Phosphorus 3.7, Magnesium 2.2 10/19/17 1600: Sodium Cancelled, Potassium Cancelled, Chloride Cancelled, Carbon Dioxide Cancelled, Anion Gap Cancelled, BUN Cancelled, Creatinine Cancelled, BUN/ Creatinine Ratio Cancelled 10/19/17 1120: Urine Color YEL, Urine Clarity CLEAR, Urine pH 6.0, Ur Specific [place] 1.020, Urine Protein NEG, Urine Ketones NEG, Urine Nitrite NEG, Urine Bilirubin NEG@ ICTO, Urine Urobilinogen 0.2, Ur Leukocyte Esterase SMALL H, Ur Microscopic SEDIMENT EXAMINED, Urine WBC 5-10 H, Ur Epithelial Cells RENAL H, Urine Bacteria FEW H, Micro UA Comment [place] H, Urine Hemoglobin NEG, Urine Glucose NEG 10/19/17 1120: Urine Opiates Screen < 100, Methadone Screen 65, Barbiturate Screen < 60, Ur Phencyclidine Scrn < 6.00, Amphetamines Screen < 100, U Benzodiazepines Scrn < 85, Urine Cocaine Screen < 50, Urine Cannabis Screen < 5.00, Ur Random Creatinine 171.2, Ur Random Sodium < 5 L, Ur Random Potassium 34.6, Fraction Sodium Excret 10/19/17 0800: Anion Gap 14, Estimated GFR 10 L, BUN/Creatinine Ratio 18.6, Total Bilirubin 2.4 H, Direct Bilirubin 1.5 H, AST 82 H, ALT 30, Alkaline Phosphatase 366 H, Total Protein 6.3, Albumin 3.6, PT 14.0 H, INR 1.28 H, CBC w Diff NO MAN DIFF REQ, RBC 2.99 L, MCV 101.7 H, MCH 33.6 H, MCHC 33.1, RDW 18.0 H, MPV 10.6 H , Gran % 55.7, Lymphocytes % 25.9, Monocytes % 14.1 H, Eosinophils % 3.1, Basophils % 1.2, Absolute Granulocytes 3.6, Absolute Lymphocytes 1.7, Absolute Monocytes 0.9 H, Absolute Eosinophils 0.2, Absolute Basophils 0.1 10/18/17 1421: Ur Random Creatinine Cancelled, Ur Random Sodium Cancelled, Ur Random Potassium Cancelled, Fraction Sodium Excret Cancelled Vital Signs Date Time Temp Pulse Resp B/P B/P Pulse O2 O2 Flow FiO2 Mean Ox Delivery Rate 10/21 0929 96 110/68 10/21 0800 Room Air 10/21 0617 97.9 88 20 120/60 96 Room Air 10/20 2153 97.8 96 20 130/70 98 Room Air 10/20 1428 97.0 82 20 120/60 98 10/20 1231 93 110/60 Intake & Output 10/21 1600 10/21 0800 10/21 0000 Intake Total 125 200 Output Total 200 Balance 125 0 Intake, IV 75 100 Intake, Oral 50 100 Output, 50 Emesis Output, Urine 150
--- NOTE | 2017-10-21 14:12 | PN- Gastroenterology ---
Assessment/Plan GI Assessment/Recommendations: Assessment: Ms. Luan is an 81 year old female with decompensated SORIA/cirrhosis with ascites admitted with HE and worsening renal insufficiency likely secondary to hepatorenal syndrome considering lack of significant improvement with volume exapansion, urine na < 5 and underlying portal hypertension. She underwent a paracentesis yesterday which she tolerated well, but she is more lethargic this morning which I suspect is secondary to HE which for which she has not had an adequate amount of lactulose for as she has had only one bm since being admitted. 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 Recommendations: 1. Continue xifaxan and lactulose and would titrate lactulose to 2-3 soft bms a day 2. Continue octreotide and would add midodrine if she is able to take po medications 3. Low sodium diet 4. Follow electrolytes and renal function 5. D/C albumin 6. Considering poor prognosis it would not be unreasonable to consider hospice level palliative care as per families wishes Dr. Adams will resume her GI care in the am. Problem List: 1. GI bleed 2. Anemia 3. Portal hypertension 4. Ascites 5. Volume overload 6. Liver failure 7. Hepatic encephalopathy Subjective Subjective: pt status post paracentesis yesterday during which time 4.7 liters of fluid was removed and from which she has had some improvement in her abd discomfort. she has been without any vomiting since the paracentesis. she did have a bm on lactulose yesterday morning but nothing else since. she has been lethargic throughout the day. she has been started on octreotide Objective Vital Signs and I&Os Vital Signs Date Time Temp Pulse Resp B/P B/P Pulse O2 O2 Flow FiO2 Mean Ox Delivery Rate 10/21 0929 96 110/68 10/21 0800 Room Air 10/21 0617 97.9 88 20 120/60 96 Room Air 10/20 2153 97.8 96 20 130/70 98 Room Air 10/20 1428 97.0 82 20 120/60 98 Intake & Output 10/21 1600 10/21 0400 10/20 1600 10/20 0400 10/19 1600 10/19 0400 Intake Total 779 606 5024 410 840 240 Output Total 200 250 100 Balance 125 0 830 410 740 240 Intake, IV 75 100 100 50 Intake, Oral 50 100 980 360 840 240 Number 3 1 Bowel Movements Output, 50 250 Emesis Output, Urine 150 100 Patient 209 lb Weight Physical Exam General Appearance: well developed/nourished, lethargic Head: atraumatic Neck: normal inspection, supple Respiratory: no respiratory distress, decreased breath sounds Cardiovascular: regular rate/rhythm Abdomen: normal bowel sounds, soft, non-tender Back: normal inspection Extremities: pedal edema Current Medications: Current Medications Sig/Jennifer Start time Last Medication Dose Route Stop Time Status Admin Albumin Human 12.5 GM Q8 10/18 0804 AC 10/21 IV 0620 Allopurinol 100 MG DAILY 10/18 0900 AC 10/21 PO 0929 Amlodipine Besylate 10 MG DAILY 10/18 0900 AC 10/21 PO 0929 Atorvastatin Calcium 5 MG 1700 10/18 1700 AC 10/20 PO 1850 Carbidopa/Levodopa 1 TAB TID 10/18 09 AC 10/21 PO 0929 Dextrose 25 GM ONCE ONE 10/21 1999 MS 10/20 IV 10/20 Duloxetine HCl 60 MG TUES THURS SAT 10/19 0900 10/21 PO 0929 Fentanyl Citrate 12 MCG Q3D 10/18 0015 10/20 TOP 2334 Insulin Aspart 0 TIDAC 10/18 0800 10/20 DE 1232 Insulin Detemir 8 UNITS DAILY 10/18 0900 10/21 SC 0929 Insulin Human Regular 10 UNITS ONCE ONE 10/21 1999 DC 10/20 IV 10/20 Lactulose 1 BOT Q4 10/21 1400 AC TN Lactulose 20 GM Q6 10/20 1200 MS 10/21 PO 0623 Levothyroxine Sodium 0.175 MG DAILY AC 10/18 0700 AC 10/21 PO 0622 Octreotide Acetate 100 MCG TID 10/20 2100 AC 10/21 SC 0930 Omeprazole 40 MG DAILY AC 10/18 0700 AC 10/21 PO 0622 Ondansetron HCl 4 MG ONCE ONE 10/20 2145 CAN PO 10/20 214 Ondansetron HCl 4 MG Q6-PRN PRN 10/20 2145 DC 10/21 IV 0641 Promethazine HCl 12.5 MG Q6P PRN 10/21 1100 AC IV 10/28 1059 Rifaximin 550 MG BID 10/18 0015 AC 10/21 PO 0929 Trimethobenzamide HCl 200 MG 4 TIMES/DAY 10/21 1031 DC IM Results Pertinent Lab Results: Laboratory Tests 10/21 10/21 10/20 10/20 0755 0715 2139 2009 Chemistry Sodium (137 - 145 mmol/L) 137 138 134 L Potassium (3.5 - 5.1 mmol/L) 5.1 5.1 5.5 H Chloride (98 - 107 mmol/L) 103 100 101 Carbon Dioxide (22 - 30 mmol/L) 22 21 L 21 L Anion Gap (5 - 16) 12 16 13 BUN (7 - 17 mg/dL) 86 H 82 H 84 H Creatinine (0.5 - 1.0 mg/dL) 4.2 H 4.3 H 4.2 H Estimated GFR (>60 ml/min) 10 L 10 L 10 L BUN/Creatinine Ratio (7 - 25 %) 20.5 19.1 20.0 Total Bilirubin (0.2 - 1.3 mg/dL) 2.6 H Direct Bilirubin (< 0.4 mg/dL) 1.4 H AST (14 - 36 U/L) 88 H ALT (9 - 52 U/L) 35 Alkaline Phosphatase (<127 U/L) 383 H Total Protein (6.3 - 8.2 g/dL) 6.1 L Albumin (3.5 - 5.0 g/dL) 3.7 Coagulation PT (9.4 - 12.5 SEC) 12.4 INR (0.90 - 1.19) 1.14 Hematology CBC w Diff NO MAN DIFF REQ WBC (4.8 - 10.8 /CUMM) 4.8 RBC (4.20 - 5.40 /CUMM) 2.81 L Hgb (12.0 - 16.0 G/DL) 9.4 L Hct (37 - 47 %) 28.3 L MCV (81.0 - 99.0 FL) 100.6 H MCH (27.0 - 31.0 PG) 33.5 H MCHC (33.0 - 37.0 G/DL) 33.3 RDW (11.5 - 14.5 %) 17.2 H Plt Count (130 - 400 /CUMM) 68 L MPV (7.4 - 10.4 FL) 10.2 Gran % (42.2 - 75.2 %) 63.6 Lymphocytes % (20.5 - 51.1 %) 18.5 L Monocytes % (1.7 - 9.3 %) 14.9 H Eosinophils % (0 - 5 %) 2.3 Basophils % (0.0 - 2.0 %) 0.7 Absolute Granulocytes (1.4 - 6.5 /CUMM) 3.0 Absolute Lymphocytes (1.2 - 3.4 /CUMM) 0.9 L Absolute Monocytes (0.10 - 0.60 /CUMM) 0.7 H Absolute Eosinophils (0.0 - 0.7 /CUMM) 0.1 Absolute Basophils (0.0 - 0.2 /CUMM) 0 10/20 10/19 10/19 0758 2315 1600 Chemistry Sodium (137 - 145 mmol/L) 135 L 134 L Cancelled Potassium (3.5 - 5.1 mmol/L) 5.9 H 5.5 H Cancelled Chloride (98 - 107 mmol/L) 102 101 Cancelled Carbon Dioxide (22 - 30 mmol/L) 22 22 Cancelled Anion Gap (5 - 16) 10 11 Cancelled BUN (7 - 17 mg/dL) 81 H 84 H Cancelled Creatinine (0.5 - 1.0 mg/dL) 4.4 H 4.3 H Cancelled Estimated GFR (>60 ml/min) 10 L 10 L BUN/Creatinine Ratio (7 - 25 %) 18.4 19.5 Cancelled Calcium (8.4 - 10.2 mg/dL) 10.6 H 10.8 H Phosphorus (2.5 - 4.5 mg/dL) 3.6 3.7 Magnesium (1.6 - 2.3 mg/dL) 2.2 2.2 Total Bilirubin (0.2 - 1.3 mg/dL) 2.5 H Direct Bilirubin (< 0.4 mg/dL) 1.3 H AST (14 - 36 U/L) 79 H ALT (9 - 52 U/L) 33 Alkaline Phosphatase (<127 U/L) 368 H Total Protein (6.3 - 8.2 g/dL) 5.9 L Albumin (3.5 - 5.0 g/dL) 3.5 Coagulation PT (9.4 - 12.5 SEC) 14.2 H INR (0.90 - 1.19) 1.30 H Hematology CBC w Diff NO MAN DIFF REQ WBC (4.8 - 10.8 /CUMM) 4.9 RBC (4.20 - 5.40 /CUMM) 2.78 L Hgb (12.0 - 16.0 G/DL) 9.3 L Hct (37 - 47 %) 28.2 L MCV (81.0 - 99.0 FL) 101.2 H MCH (27.0 - 31.0 PG) 33.4 H MCHC (33.0 - 37.0 G/DL) 33.0 RDW (11.5 - 14.5 %) 17.7 H Plt Count (130 - 400 /CUMM) 74 L MPV (7.4 - 10.4 FL) 10.4 Gran % (42.2 - 75.2 %) 59.6 Lymphocytes % (20.5 - 51.1 %) 24.1 Monocytes % (1.7 - 9.3 %) 13.7 H Eosinophils % (0 - 5 %) 2.2 Basophils % (0.0 - 2.0 %) 0.4 Absolute Granulocytes (1.4 - 6.5 /CUMM) 2.9 Absolute Lymphocytes (1.2 - 3.4 /CUMM) 1.2 Absolute Monocytes (0.10 - 0.60 /CUMM) 0.7 H Absolute Eosinophils (0.0 - 0.7 /CUMM) 0.1 Absolute Basophils (0.0 - 0.2 /CUMM) 0 10/19 10/19 1120 1120 Toxicology Urine Opiates Screen (>2000 NG/ML) < 100 Methadone Screen (>300 NG/ML) 65 Barbiturate Screen (>200 NG/ML) < 60 Ur Phencyclidine Scrn (>25 NG/ML) < 6.00 Amphetamines Screen (>1000 NG/ML) < 100 U Benzodiazepines Scrn (>200 NG/ML) < 85 Urine Cocaine Screen (>300 NG/ML) < 50 Urine Cannabis Screen (>50 NG/ML) < 5.00 Urines Urine Color (YEL,AMB,STR) YEL Urine Clarity (CLEAR) CLEAR Urine pH (5.0 - 8.0) 6.0 Ur Specific [place] (1.001 - 1.035) 1.020 Urine Protein (NEG,<30 MG/DL) NEG Urine Ketones (NEG) NEG Urine Nitrite (NEG) NEG Urine Bilirubin (NEG) NEG@ICTO Urine Urobilinogen (0.1 - 1.0 EU/dl) 0.2 Ur Leukocyte Esterase (NEG) SMALL H Ur Microscopic SEDIMENT EXAMINED Urine WBC (0 - 2 /HPF) 5-10 H Ur Epithelial Cells (NONE,FEW) RENAL H Urine Bacteria (NEG/NONE) FEW H Micro UA Comment BUDDING YEAST H Urine Hemoglobin (NEG) NEG Ur Random Creatinine (mg/dL) 171.2 Ur Random Sodium (30 - 90 mmol/L) < 5 L Ur Random Potassium (mmol/L) 34.6 Fraction Sodium Excret (<1% %) Urine Glucose (N MG/DL) NEG 10/19 10/18 0800 1421 Chemistry Sodium (137 - 145 mmol/L) 137 Potassium (3.5 - 5.1 mmol/L) 5.9 H Chloride (98 - 107 mmol/L) 103 Carbon Dioxide (22 - 30 mmol/L) 20 L Anion Gap (5 - 16) 14 BUN (7 - 17 mg/dL) 82 H Creatinine (0.5 - 1.0 mg/dL) 4.4 H Estimated GFR (>60 ml/min) 10 L BUN/Creatinine Ratio (7 - 25 %) 18.6 Total Bilirubin (0.2 - 1.3 mg/dL) 2.4 H Direct Bilirubin (< 0.4 mg/dL) 1.5 H AST (14 - 36 U/L) 82 H ALT (9 - 52 U/L) 30 Alkaline Phosphatase (<127 U/L) 366 H Total Protein (6.3 - 8.2 g/dL) 6.3 Albumin (3.5 - 5.0 g/dL) 3.6 Coagulation PT (9.4 - 12.5 SEC) 14.0 H INR (0.90 - 1.19) 1.28 H Hematology CBC w Diff NO MAN DIFF REQ WBC (4.8 - 10.8 /CUMM) 6.4 RBC (4.20 - 5.40 /CUMM) 2.99 L Hgb (12.0 - 16.0 G/DL) 10.1 L Hct (37 - 47 %) 30.4 L MCV (81.0 - 99.0 FL) 101.7 H MCH (27.0 - 31.0 PG) 33.6 H MCHC (33.0 - 37.0 G/DL) 33.1 RDW (11.5 - 14.5 %) 18.0 H Plt Count (130 - 400 /CUMM) 91 L MPV (7.4 - 10.4 FL) 10.6 H Gran % (42.2 - 75.2 %) 55.7 Lymphocytes % (20.5 - 51.1 %) 25.9 Monocytes % (1.7 - 9.3 %) 14.1 H Eosinophils % (0 - 5 %) 3.1 Basophils % (0.0 - 2.0 %) 1.2 Absolute Granulocytes (1.4 - 6.5 /CUMM) 3.6 Absolute Lymphocytes (1.2 - 3.4 /CUMM) 1.7 Absolute Monocytes (0.10 - 0.60 /CUMM) 0.9 H Absolute Eosinophils (0.0 - 0.7 /CUMM) 0.2 Absolute Basophils (0.0 - 0.2 /CUMM) 0.1 Urines Ur Random Creatinine Cancelled Ur Random Sodium Cancelled Ur Random Potassium Cancelled Fraction Sodium Excret Cancelled Imaging/Other Studies: SERVICE DATE: 10/20/17- EXAM TYPE: US - US-PARACENTESIS CLINICAL HISTORY: This patient is a 81 years old Female with ascites found on physical exam, who is referred to Interventional Radiology for ultrasound-guided paracentesis. PROCEDURE: Ultrasound-guided paracentesis. PHYSICIANS: Dr. Carley Dowd (attending). MEDICATIONS: 10 mL of 1% lidocaine SQ. COMPLICATIONS: None ESTIMATED BLOOD LOSS: <5 mL SPECIMENS: None IMPLANT: None. SITE MARKING: As part of the preprocedure verification policy, a site marking procedure was initiated. Due to the nature the procedure, the insertion site could not be predetermined thus invoking the policy of exemption to site laterality and marking. Insertion site marking was performed in the procedure room in conjunction with imaging confirmation. PROCEDURE NOTE: Informed consent was obtained from the patient prior to the procedure. During this process, the procedure and potential alternatives were explained along with the intended outcome and benefits. The risks of the procedure, including the possibility of an unsuccessful procedure, as well as the risk of not doing the procedure, were discussed. The patient was given the opportunity to ask questions regarding the procedure and appeared competent to make decisions. A signed consent form documenting this discussion was placed in the medical record. A time-out procedure was performed. Appropriate preprocedure medical history and imaging studies were reviewed. The patient was brought to the ultrasound room and placed in the supine position. A time-out procedure was performed. Ultrasound images of the abdomen were obtained to localize a moderately large collection of ascites. Images were permanently saved to the record. An area of the right lower quadrant was prepped and draped in the standard sterile fashion. All elements of maximal sterile barrier technique followed including use of cap, mask, sterile gown, sterile gloves, a sterile full body drape and hand hygiene. Also followed skin preparation with 2% chlorhexidine for cutaneous antisepsis, and sterile ultrasound preparation with sterile gel and probe cover when applicable. 10 mL of 1% lidocaine was used to obtain local anesthesia of the skin and deeper tissues. A standard small-bore needle was introduced to sample fluid and demonstrated a safe access route. There was no evidence of traversing adjacent organs or vascular structures. A 6-Fr [id number] closed needle/catheter system was utilized for access. 4.7 L of slightly turbid dark yellow fluid was aspirated before drainage ceased. The catheter was removed and sterile dressing applied. The patient tolerated the procedure well without evidence of complications. FINDINGS: Moderately minimally complex abdominal ascites as detailed above. IMPRESSION: Successful ultrasound-guided therapeutic paracentesis. PLAN: The patient was stable after the procedure. The patient will be transferred to the floor.
[2017-10-21 14:32] VITALS: BP 100/55
[2017-10-21 22:29] VITALS: BP 134/68
[2017-10-22 06:31] VITALS: BP 128/70
--- NOTE | 2017-10-22 08:13 | PN- Housestaff ---
Subjective Follow-up For: -AMS likely secondary to hyperammonemia secondary to SORIA cirrhosis -Electrolytes abnormalities: Hypercalcemia, hyperkalemia -JOHN on CKD: secondary to hepatorenal syndrome, dehydration Subjective: Patient continues to be lethargic. She states that she "feels terrible". She states that she feels nauseous and vomited overnight. She is alert and oriented Review of Systems Constitutional: Reports: malaise, weakness. EENTM: Reports: no symptoms. Cardiovascular: Reports: no symptoms. Respiratory: Reports: no symptoms. Gastrointestinal: Reports: distention, nausea, vomiting. Genitourinary: Reports: no symptoms. Musculoskeletal: Reports: no symptoms. Skin: Reports: no symptoms. Neurological/Psychological: Reports: confusion. Hematologic/Endocrine: Reports: no symptoms. Immunologic/Allergic: Reports: no symptoms. Objective Last 24 Hrs of Vital Signs/I&O Vital Signs Date Time Temp Pulse Resp B/P B/P Pulse O2 O2 Flow FiO2 Mean Ox Delivery Rate 10/22 1355 98.3 95 20 100/62 95 Room Air 10/22 0855 96 112/64 10/22 0800 Room Air 10/22 0631 98.1 98 20 128/70 96 Room Air 10/21 2229 97.9 94 18 134/68 94 Room Air Intake & Output 10/22 1600 10/22 0800 10/22 0000 Intake Total 60 120 100 Output Total Balance 60 120 100 Intake, IV 20 Intake, Oral 60 100 100 Number 2 2 Bowel Movements Physical Exam General Appearance: Alert, Cooperative, No Acute Distress Skin: No Rashes, No Breakdown, No Significant Lesion Skin Temp/Moisture Exam: Warm/Dry Sepsis Skin Exam (color): Normal for Ethnicity HEENT: Atraumatic, EOMI, Mucous Membr. moist/pink Neck: Supple Cardiovascular: Regular Rate, Normal S1, Normal S2, No Murmurs Lungs: Clear to Auscultation, Normal Air Movement Abdomen: Normal Bowel Sounds, Soft, No Tenderness, distended Neurological: Normal Speech Extremities: No Clubbing, No Cyanosis, No Edema, Normal Pulses, No Tenderness/ Swelling Vascular: Normal Pulses, Pulses Symmetrical Current Medications: Current Medications Sig/Jennifer Start time Last Medication Dose Route Stop Time Status Admin Allopurinol 100 MG DAILY 10/18 899 AC 10/22 PO 0855 Amlodipine Besylate 10 MG DAILY 10/18 899 AC 10/22 PO 0855 Atorvastatin Calcium 5 MG 1700 10/18 1700 AC 10/22 PO 1651 Carbidopa/Levodopa 1 TAB TID 10/18 0900 AC 10/22 PO 1438 Duloxetine HCl 60 MG TUES THURS SAT 10/19 0900 AC 10/21 PO 0929 Fentanyl Citrate 12 MCG Q3D 10/18 0015 10/20 TOP 2334 Insulin Aspart 0 TIDAC 10/18 0800 AC 10/20 SC 1232 Insulin Detemir 8 UNITS DAILY 10/18 0900 AC 10/22 SC 1020 Lactulose 20 GM Q6H 10/22 0400 AC 10/22 PO 1639 Lactulose 1 BOT Q8H 10/22 0000 DC 10/22 [place] 0903 Lactulose 20 GM Q6H 10/22 0000 DC PO Lactulose 1 BOT Q8 10/21 2200 DC NJ Lactulose 20 GM Q6H 10/21 2200 DC 10/21 PO 2149 Lactulose 20 GM Q6 10/21 1800 DC 10/21 PO 1733 Levothyroxine Sodium 0.175 MG DAILY AC 10/18 0700 AC 10/22 PO 0602 Midodrine 5 MG 0800,1200,1600 10/22 1600 AC PO Octreotide Acetate 100 MCG TID 10/20 2100 AC 10/22 SC 1437 Omeprazole 40 MG DAILY AC 10/18 0700 AC 10/22 PO 0602 Ondansetron HCl 4 MG ONCE ONE 10/22 0615 DC 10/22 IV 10/22 0616 0607 Promethazine HCl 12.5 MG Q6P PRN 10/21 1100 AC IV 10/28 1059 Rifaximin 550 MG BID 10/18 0015 10/22 PO 0855 Last 24 Hrs of Lab/Unurly Results Last 24 Hrs of Labs/Mics: Laboratory Tests 10/22/17 0808: Anion Gap 13, Estimated GFR 10 L, BUN/Creatinine Ratio 21.7 Assessment/Plan Assessment: Patient is 81-year-old female presented with nausea, vomiting, abdominal distention and altered mental status. Patient was recently admitted here with similar complaints, at the time found to have a UTI which had likely precipitated an episode of acute hepatic encephalopathy. Patient had abdominal paracentesis done as well, 6 L of transudative fluid was removed. SBP was ruled out. She was put on lactulose as well and over time, her AMS resolved. She was discharged on rifaxamin. She had continued therapeutic paracentesis outpatient. 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, Ph Ex at admission: No fever, significantfor NJ 100, saturating well in room air Labs at admission: WC 7.6, Hb 12.2, MCV 101.8, potassium 5.2, again 75, creatinine 4.5,calcium 11.1 , total bili 2.5, AST 100, alk phosphatase 385, ammonia 101, INR 1.2 Imagings at admission: NO imaging Problem List: AMS likely secondary to hyperammonemia secondary to SORIA cirrhosis Electrolytes abnormalities: Hypercalcemia, hyperkalemia JOHN on CKD: secondary to hepatorenal syndrome, dehydration Plan: AMS likely secondary to hyperammonemia secondary to SORIA cirrhosis or hypercalcemia (the below): Patient was started on lactulose and continued on her Xifaxan. She was found to have ammonia level of 101 on admission. Yesterday liver function tests decreased numbers - total bili level was found to have decreased from 2.5 to 1.9, direct bilirubin decreased from 1.3 to 1.0, AST decreased from 100 to 80, alkaline phosphatase from 385 to 335. LFTs are largely unchanged today. Patient continues to be on albumin IV. Patient is afebrile with no white blood cell count, mo evidence SBP on diagnostic paracentesis. Patient is on a low sodium less than 2 g, less than 2 g K diet and we are continuing the Xifaxan and lactulose, titrate 2-3 soft bowel movements a day with holding parameters for diarrhea. Patient has not however had a BM in 6 days. Mental status is good today, not encephalopathic. -Diagnostic paracentesis showed no SBP and ascites secondary to portal hypertension with SAAG > 1.1 -Today patient is to undergo large volume paracentesis. Cr has not changed from yesterday so we will go ahead the procedure. Blood pressure and other vitals are stable. Paracentesis will be done with 25-50 grams of albumin infusion concurrently. -Vital signs every shift -Patient continues to be lethargic but as she has had one bowel movement we will dc NJ and continue PO lactulose. -Follow mental status with physical exam and not with repeat ammonia levels. of patient did want ammonia level so we redid it last night, was initially 101 and is now 66. -Patient continues to have waxing and waning clarity, lethargy, even with full treatment by nephrology and gastro for her problems. Palliative care consult would be appropriate to begin the discussion with the patient's family as well to make her more comfortable. Goals of care must be addressed. -Follow evans cultures -Follow LFTs, INR's, BEP, CBCs (hb and plt counts) -Hold fluids at this time Electrolytes abnormalities: Hypercalcemia, hyperkalemia -Monitor levels and can dose potassium binder and/or Sensipar if needed -Today potassium is 5.9, yesterday 5.5. We gave one dose of kayexelate earlier and will give another as per renal before drawing another K level later tonight. Of note, patient was not experiencing nausea any longer this morning. If she is noted to be experiencing nausea again, we will try Veltassa for K>5.6. -Parathyroid hormone level is 112 with elevated calcium, this has been true in previous admissions as well. The patient also has an elevated alkaline phosphatase level which could very well be liver or could be an element of bone breakdown. Hypercalcemia can also be secondary to malignancy. Can do alkaline phosphatase isoenzymes, outpatient workup with referral to endocrinology for potential hyperparathyroidism. JOHN on CKD: secondary to hepatorenal syndrome, dehydration. Serum creatinine has recently been in the mid 2's but been elevated on this admission in the fours. Urine sodium is less than 5, suggestive of heaptorenal syndrome, FENA is low. The body is attempting to preserve sodium and water secondary to kidneys not "seeing" the fluid volume, as much of it remains in the abdomen (ascitic fluid) and is doing so efficiently, ie not an intrinsic problem within the kidneys. -We will stop albumin today, patient is currently on octreotide. We will hold midodrine as patient's blood pressures are in the lower range. -Follow BEP -Patent and today is 4.2 -Appreciate nephrology consult -Monitor in's and out's, patient is incontinent of urine and needs straight cath as needed if urine needs to be drawn for labs. Asymptomatic UTI -Monitor CBC and vitals -Follow of antibiotics Gout history: -Due to JOHN, we have decreased dose of allopurinol Heart healthy DVT ppx: alps and pharmacologic DNR/DNI Problem List: 1. Hepatic encephalopathy 2. Liver failure 3. Ascites Pain Ratin Pain Location: na Pain Goal: Remain pain free Pain Plan: na Tomorrow's Labs & Rationales: cbc bep lft
--- NOTE | 2017-10-22 10:24 | PN- Nephrology ---
Assessment/Plan Nephrology Assessment: 1. JOHN/CKD secondary to hepatorenal syndrome 2. Hyperkalemia -mild 3. Hypercalcemia -mild and stable 4. Cirrhosis with ascites and hepatic encephalopathy Suggestion: 1. Agree that midodrine might be helpful once patient is able to take p.o. Would start with dose of 5 mg p.o. 3 times daily 2. Treat hyperkalemia only for a level of 5.6 or greater 3. Management of cirrhosis and encephalopathy per GI recommendations 4. Palliative care Subjective Subjective: Patient seems a little bit more alert today. No nausea or vomiting this morning. She is currently n.p.o. because of concern about possible aspiration given her altered level of consciousness, although she is perfectly alert, oriented and communicative this morning. Renal function remained stable with creatinine in the low 4's. Potassium 5.4 today. Objective Vital Signs and I&Os Vital Signs Date Time Temp Pulse Resp B/P B/P Pulse O2 O2 Flow FiO2 Mean Ox Delivery Rate 10/22 0855 96 112/64 10/22 0631 98.1 98 20 128/70 96 Room Air 10/21 2229 97.9 94 18 134/68 94 Room Air 10/21 1432 97.5 90 18 100/55 97 Room Air Intake & Output 10/22 1600 10/22 0400 10/21 1600 10/21 0400 10/20 1600 10/20 0400 Intake Total 120 100 084 202 8613 410 Output Total 200 250 Balance 120 100 245 0 830 410 Intake, IV 20 75 100 100 50 Intake, Oral 100 100 170 100 980 360 Number 3 3 1 Bowel Movements Output, 50 250 Emesis Output, Urine 150 Patient 209 lb Weight Physical Exam: General: Chronically ill-appearing, elderly white female awake and in no acute distress Skin: No rash or jaundice HEENT: Conjunctivae pale, sclerae anicteric, mucous membranes dry, tongue smooth Neck: Without masses or thyromegaly, no supraclavicular or cervical adenopathy Chest: Bibasilar rales, no wheezes or rhonchi Heart: Regular rate and rhythm without S3 or rub Abdomen: Soft with ascites, no palpable masses or organomegaly Extremities: 1+ lower extremity edema bilaterally Neuro: Awake, alert and oriented, no focal findings, + asterixis, no myoclonus Results Pertinent Lab Results: Laboratory Tests 10/22 10/21 10/21 10/21 0808 1645 0757 6989 Chemistry Sodium (137 - 145 mmol/L) 137 137 Potassium (3.5 - 5.1 mmol/L) 5.4 H 5.1 Chloride (98 - 107 mmol/L) 101 103 Carbon Dioxide (22 - 30 mmol/L) 24 22 Anion Gap (5 - 16) 13 12 BUN (7 - 17 mg/dL) 91 H 86 H Creatinine (0.5 - 1.0 mg/dL) 4.2 H 4.2 H Estimated GFR (>60 ml/min) 10 L 10 L BUN/Creatinine Ratio (7 - 25 %) 21.7 20.5 Total Bilirubin (0.2 - 1.3 mg/dL) 2.6 H Direct Bilirubin (< 0.4 mg/dL) 1.4 H AST (14 - 36 U/L) 88 H ALT (9 - 52 U/L) 35 Alkaline Phosphatase (<127 U/L) 383 H Ammonia (9 - 30 umol/L) 66 H Total Protein (6.3 - 8.2 g/dL) 6.1 L Albumin (3.5 - 5.0 g/dL) 3.7 Coagulation PT (9.4 - 12.5 SEC) 12.4 INR (0.90 - 1.19) 1.14 Hematology CBC w Diff NO MAN DIFF REQ WBC (4.8 - 10.8 /CUMM) 4.8 RBC (4.20 - 5.40 /CUMM) 2.81 L Hgb (12.0 - 16.0 G/DL) 9.4 L Hct (37 - 47 %) 28.3 L MCV (81.0 - 99.0 FL) 100.6 H MCH (27.0 - 31.0 PG) 33.5 H MCHC (33.0 - 37.0 G/DL) 33.3 RDW (11.5 - 14.5 %) 17.2 H Plt Count (130 - 400 /CUMM) 68 L MPV (7.4 - 10.4 FL) 10.2 Gran % (42.2 - 75.2 %) 63.6 Lymphocytes % (20.5 - 51.1 %) 18.5 L Monocytes % (1.7 - 9.3 %) 14.9 H Eosinophils % (0 - 5 %) 2.3 Basophils % (0.0 - 2.0 %) 0.7 Absolute Granulocytes (1.4 - 6.5 /CUMM) 3.0 Absolute Lymphocytes (1.2 - 3.4 /CUMM) 0.9 L Absolute Monocytes (0.10 - 0.60 /CUMM) 0.7 H Absolute Eosinophils (0.0 - 0.7 /CUMM) 0.1 Absolute Basophils (0.0 - 0.2 /CUMM) 0 10/20 075 Chemistry Sodium (137 - 145 mmol/L) 138 134 L 135 L Potassium (3.5 - 5.1 mmol/L) 5.1 5.5 H 5.9 H Chloride (98 - 107 mmol/L) 100 101 102 Carbon Dioxide (22 - 30 mmol/L) 21 L 21 L 22 Anion Gap (5 - 16) 16 13 10 BUN (7 - 17 mg/dL) 82 H 84 H 81 H Creatinine (0.5 - 1.0 mg/dL) 4.3 H 4.2 H 4.4 H Estimated GFR (>60 ml/min) 10 L 10 L 10 L BUN/Creatinine Ratio (7 - 25 %) 19.1 20.0 18.4 Calcium (8.4 - 10.2 mg/dL) 10.6 H Phosphorus (2.5 - 4.5 mg/dL) 3.6 Magnesium (1.6 - 2.3 mg/dL) 2.2 Total Bilirubin (0.2 - 1.3 mg/dL) 2.5 H Direct Bilirubin (< 0.4 mg/dL) 1.3 H AST (14 - 36 U/L) 79 H ALT (9 - 52 U/L) 33 Alkaline Phosphatase (<127 U/L) 368 H Total Protein (6.3 - 8.2 g/dL) 5.9 L Albumin (3.5 - 5.0 g/dL) 3.5 Coagulation PT (9.4 - 12.5 SEC) 14.2 H INR (0.90 - 1.19) 1.30 H Hematology CBC w Diff NO MAN DIFF REQ WBC (4.8 - 10.8 /CUMM) 4.9 RBC (4.20 - 5.40 /CUMM) 2.78 L Hgb (12.0 - 16.0 G/DL) 9.3 L Hct (37 - 47 %) 28.2 L MCV (81.0 - 99.0 FL) 101.2 H MCH (27.0 - 31.0 PG) 33.4 H MCHC (33.0 - 37.0 G/DL) 33.0 RDW (11.5 - 14.5 %) 17.7 H Plt Count (130 - 400 /CUMM) 74 L MPV (7.4 - 10.4 FL) 10.4 Gran % (42.2 - 75.2 %) 59.6 Lymphocytes % (20.5 - 51.1 %) 24.1 Monocytes % (1.7 - 9.3 %) 13.7 H Eosinophils % (0 - 5 %) 2.2 Basophils % (0.0 - 2.0 %) 0.4 Absolute Granulocytes (1.4 - 6.5 /CUMM) 2.9 Absolute Lymphocytes (1.2 - 3.4 /CUMM) 1.2 Absolute Monocytes (0.10 - 0.60 /CUMM) 0.7 H Absolute Eosinophils (0.0 - 0.7 /CUMM) 0.1 Absolute Basophils (0.0 - 0.2 /CUMM) 0 10/19 10/19 10/19 2315 1600 1120 Chemistry Sodium (137 - 145 mmol/L) 134 L Cancelled Potassium (3.5 - 5.1 mmol/L) 5.5 H Cancelled Chloride (98 - 107 mmol/L) 101 Cancelled Carbon Dioxide (22 - 30 mmol/L) 22 Cancelled Anion Gap (5 - 16) 11 Cancelled BUN (7 - 17 mg/dL) 84 H Cancelled Creatinine (0.5 - 1.0 mg/dL) 4.3 H Cancelled Estimated GFR (>60 ml/min) 10 L BUN/Creatinine Ratio (7 - 25 %) 19.5 Cancelled Calcium (8.4 - 10.2 mg/dL) 10.8 H Phosphorus (2.5 - 4.5 mg/dL) 3.7 Magnesium (1.6 - 2.3 mg/dL) 2.2 Urines Urine Color (YEL,AMB,STR) YEL Urine Clarity (CLEAR) CLEAR Urine pH (5.0 - 8.0) 6.0 Ur Specific [place] (1.001 - 1.035) 1.020 Urine Protein (NEG,<30 MG/DL) NEG Urine Ketones (NEG) NEG Urine Nitrite (NEG) NEG Urine Bilirubin (NEG) NEG@ICTO Urine Urobilinogen (0.1 - 1.0 EU/dl) 0.2 Ur Leukocyte Esterase (NEG) SMALL H Ur Microscopic SEDIMENT EXAMINED Urine WBC (0 - 2 /HPF) 5-10 H Ur Epithelial Cells (NONE,FEW) RENAL H Urine Bacteria (NEG/NONE) FEW H Micro UA Comment BUDDING YEAST H Urine Hemoglobin (NEG) NEG Urine Glucose (N MG/DL) NEG 10/19 1120 Toxicology Urine Opiates Screen (>2000 NG/ML) < 100 Methadone Screen (>300 NG/ML) 65 Barbiturate Screen (>200 NG/ML) < 60 Ur Phencyclidine Scrn (>25 NG/ML) < 6.00 Amphetamines Screen (>1000 NG/ML) < 100 U Benzodiazepines Scrn (>200 NG/ML) < 85 Urine Cocaine Screen (>300 NG/ML) < 50 Urine Cannabis Screen (>50 NG/ML) < 5.00 Urines Ur Random Creatinine (mg/dL) 171.2 Ur Random Sodium (30 - 90 mmol/L) < 5 L Ur Random Potassium (mmol/L) 34.6 Fraction Sodium Excret (<1% %)
--- NOTE | 2017-10-22 10:44 | PN- Att Addend ---
Attending Addendum Attending Brief Note Patient seen and examined. Plan of care discussed with the medical team and the patient. Available lab work and radiology test reports were reviewed. Patient seemed to be more awake and alert today but continues to have flapping tremors of both hands. She still does not feel better. She denies any difficulty breathing fever or chills. She was able to move her bowel yesterday. Exam: General: Patient appears more awake and oriented without any distress CVS: S1 plus S2 without any murmur or gallops Chest: Few scattered crepitation without any wheeze. There is no respiratory distress. 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 CASH POSTER: Awake somewhat lethargic and oriented without any focal neuro deficit and follows commands appropriately Extremities: Mild edema; no clubbing or cyanosis noted ; bilateral asterixis noted Assessment * Recurrent ascites secondary to decompensated cirrhosis- patient status post diagnostic and therapeutic ascitic tap; no signs of SBP * Hepatitic encephalopathy- slightly improved today but continues to have asterixis * Acute kidney injury on chronic kidney disease,suspected hepatorenal syndrome, creatinine slightly improved * Hypercalcemia due to hyperparathyroidism; patient currently does not meet criteria for surgery; she should be watched conservatively * Elevated bilirubin * Hx of DM, HTN, HLD, CAD, * 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, * portal hypertension, * ROD, * hypothyroidism, * gout, * spinal stenosis, * CKD * Hyperkalemia- likely due to worsening renal failure Plan * Continue Low potassium diet * Continue Kayexalate 70 g daily; recheck potassium in a.m. * continue rifaximin and lactulose with goal of 2-3 bowel motion per day; can hold for diarrhea. No need for lactulose enema at this point. * recheck labs in am * Continue to monitor mental status closely; * Tigan for nausea * Prognosis remains poor and patient has not made significant progress despite aggressive medical therapy; we will obtain a palliative care consult to assess goals of care Current Medications Sig/Jennifer Start time Last Medication Dose Route Stop Time Status Admin Albumin Human 12.5 GM Q8 10/18 0804 DC 10/21 IV 0620 Allopurinol 100 MG DAILY 10/18 09 AC 10/22 PO 0855 Amlodipine Besylate 10 MG DAILY 10/18 09 AC 10/22 PO 08 Atorvastatin Calcium 5 MG 1700 10/18 1700 AC 10/21 PO 1732 Carbidopa/Levodopa 1 TAB TID 10/18 0900 10/22 PO 0855 Duloxetine HCl 60 MG TUES THURS SAT 10/19 0900 AC 10/21 PO 0929 Fentanyl Citrate 12 MCG Q3D 10/18 0015 10/20 TOP 2334 Insulin Aspart 0 TIDAC 10/18 0800 AC 10/20 SC 1232 Insulin Detemir 8 UNITS DAILY 10/18 0900 AC 10/22 SC 1020 Lactulose 20 GM Q6H 10/22 0400 AC 10/22 PO 1020 Lactulose 1 BOT Q8H 10/22 0000 AC 10/22 [place] 0903 Lactulose 20 GM Q6H 10/22 0000 DC PO Lactulose 1 BOT Q8 10/21 2200 DC NH Lactulose 20 GM Q6H 10/21 2200 DC 10/21 PO 2149 Lactulose 20 GM Q6 10/21 1800 DC 10/21 PO 1733 Lactulose 1 BOT Q4 10/21 1400 DC 10/21 [place] 1515 Lactulose 20 GM Q6 10/20 1200 CA 10/21 PO 0623 Levothyroxine Sodium 0.175 MG DAILY AC 10/18 0700 AC 10/22 PO 0602 Octreotide Acetate 100 MCG TID 10/20 2100 AC 10/22 SC 0855 Omeprazole 40 MG DAILY AC 10/18 0700 AC 10/22 PO 0602 Ondansetron HCl 4 MG ONCE ONE 10/22 0615 DC 10/22 IV 10/22 0616 0607 Promethazine HCl 12.5 MG Q6P PRN 10/21 1100 AC IV 10/28 1059 Rifaximin 550 MG BID 10/18 001 10/22 PO 0855 Trimethobenzamide HCl 200 MG 4 TIMES/DAY 10/21 1031 DC IM Laboratory Tests 10/22/17 0808: Anion Gap 13, Estimated GFR 10 L, BUN/Creatinine Ratio 21.7 10/21/17 1645: Ammonia 66 H 10/21/17 0755: CBC w Diff NO MAN DIFF REQ, RBC 2.81 L, MCV 100.6 H, MCH 33.5 H, MCHC 33.3, RDW 17.2 H, MPV 10.2, Gran % 63.6, Lymphocytes % 18.5 L, Monocytes % 14.9 H, Eosinophils % 2.3, Basophils % 0.7, Absolute Granulocytes 3.0, Absolute Lymphocytes 0.9 L, Absolute Monocytes 0.7 H, Absolute Eosinophils 0.1, Absolute Basophils 0 10/21/17 0715: Anion Gap 12, Estimated GFR 10 L, BUN/Creatinine Ratio 20.5, Total Bilirubin 2.6 H, Direct Bilirubin 1.4 H, AST 88 H, ALT 35, Alkaline Phosphatase 383 H, Total Protein 6.1 L, Albumin 3.7, PT 12.4, INR 1.14 10/20/17 2140: Anion Gap 16, Estimated GFR 10 L, BUN/Creatinine Ratio 19.1 10/20/17 2010: Anion Gap 13, Estimated GFR 10 L, BUN/Creatinine Ratio 20.0 10/20/17 0758: Anion Gap 10, Estimated GFR 10 L, BUN/Creatinine Ratio 18.4, Calcium 10.6 H, Phosphorus 3.6, Magnesium 2.2, Total Bilirubin 2.5 H, Direct Bilirubin 1.3 H, AST 79 H, ALT 33, Alkaline Phosphatase 368 H, Total Protein 5.9 L, Albumin 3.5, PT 14.2 H, INR 1.30 H, CBC w Diff NO MAN DIFF REQ, RBC 2.78 L, MCV 101.2 H, MCH 33.4 H, MCHC 33.0, RDW 17.7 H, MPV 10.4, Gran % 59.6, Lymphocytes % 24.1, Monocytes % 13.7 H, Eosinophils % 2.2, Basophils % 0.4, Absolute Granulocytes 2.9, Absolute Lymphocytes 1.2, Absolute Monocytes 0.7 H, Absolute Eosinophils 0.1, Absolute Basophils 0 10/19/17 2315: Anion Gap 11, Estimated GFR 10 L, BUN/Creatinine Ratio 19.5, Calcium 10.8 H, Phosphorus 3.7, Magnesium 2.2 10/19/17 1600: Sodium Cancelled, Potassium Cancelled, Chloride Cancelled, Carbon Dioxide Cancelled, Anion Gap Cancelled, BUN Cancelled, Creatinine Cancelled, BUN/ Creatinine Ratio Cancelled 10/19/17 1120: Urine Color YEL, Urine Clarity CLEAR, Urine pH 6.0, Ur Specific [place] 1.020, Urine Protein NEG, Urine Ketones NEG, Urine Nitrite NEG, Urine Bilirubin NEG@ ICTO, Urine Urobilinogen 0.2, Ur Leukocyte Esterase SMALL H, Ur Microscopic SEDIMENT EXAMINED, Urine WBC 5-10 H, Ur Epithelial Cells RENAL H, Urine Bacteria FEW H, Micro UA Comment BUDDING YEAST H, Urine Hemoglobin NEG, Urine Glucose NEG 10/19/17 1120: Urine Opiates Screen < 100, Methadone Screen 65, Barbiturate Screen < 60, Ur Phencyclidine Scrn < 6.00, Amphetamines Screen < 100, U Benzodiazepines Scrn < 85, Urine Cocaine Screen < 50, Urine Cannabis Screen < 5.00, Ur Random Creatinine 171.2, Ur Random Sodium < 5 L, Ur Random Potassium 34.6, Fraction Sodium Excret Vital Signs Date Time Temp Pulse Resp B/P B/P Pulse O2 O2 Flow FiO2 Mean Ox Delivery Rate 10/22 0855 96 112/64 10/22 0631 98.1 98 20 128/70 96 Room Air 10/21 2229 97.9 94 18 134/68 94 Room Air 10/21 1432 97.5 90 18 100/55 97 Room Air Intake & Output 10/22 1600 10/22 0800 10/22 0000 Intake Total 120 100 Output Total Balance 120 100 Intake, IV 20 Intake, Oral 100 100 Number 1 2 Bowel Movements
[2017-10-22 13:55] VITALS: BP 100/62
--- NOTE | 2017-10-22 19:08 | PN- Gastroenterology ---
Assessment/Plan GI Assessment/Recommendations: ASSESSMENT: 1. Cirrhosis 2. Hepatic Encephalopathy 3. ? Parkinson's Disease 4. Acute Kidney Injury -- On Octreotide, midrodrine, and albumin RECOMMENDATIONS: 1. Spoke with patient's daughter. She was expecting a healthcare marketer to see her mother regarding stopping medications which might be "heart on the liver and kidney". 2. Will give patient an additional 2 lactulose enemas tonight since she per nursing report vomited lactulose. However discussed with the daughters as well as son that she is on Xifaxan which is a forceps. A medication for treatment of hepatic encephalopathy. I discussed with them as well that looking at Phil listed appears that she has Parkinson's disease and her daughter confirm that it was thought that she might have early Parkinson's. I suggested that some of her encephalopathy Lisette fact be related to Parkinson since she does appear to have a somewhat masklike face ease and some of her hand flapping may be related to that as well. Would recommend considering a neurology consultation regarding this. 5. Do not see I's and O's recorded for today. Would record urine output strictly. Would also repeat urine sodium. 4.. Addressed with family hospice / palliative care consult. Will speak with them about this again. Subjective Subjective: Patient remains confused although somewhat more alert. Patient is somewhat tearful. Per nursing had large bowel movement 2 yesterday after lactulose enema. Is taking by mouth lactulose now. Is also on Xifaxan. Objective Vital Signs and I&Os Vital Signs Date Time Temp Pulse Resp B/P B/P Pulse O2 O2 Flow FiO2 Mean Ox Delivery Rate 10/22 1355 98.3 95 20 100/62 95 Room Air 10/22 0855 96 112/64 10/22 0800 Room Air 10/22 0631 98.1 98 20 128/70 96 Room Air 10/21 2229 97.9 94 18 134/68 94 Room Air Intake & Output 10/22 0400 10/21 0400 10/20 0400 Intake Total 180 100 509 983 5059 410 Output Total 200 250 Balance 180 100 245 0 830 410 Intake, IV 20 75 100 100 50 Intake, Oral 160 100 170 100 980 360 Number 4 3 1 Bowel Movements Output, 50 250 Emesis Output, Urine 150 Patient 209 lb Weight Physical Exam General Appearance: awake Respiratory: lungs clear Cardiovascular: regular rate/rhythm Abdomen: normal bowel sounds, soft, non-tender Neurologic/Psychiatric: awake, SOMEWHAT LETHARGIC, APPEARS CONFUSED. lARGELY NONVERBAL. Current Medications: Current Medications Sig/Jennifer Start time Last Medication Dose Route Stop Time Status Admin Allopurinol 100 MG DAILY 10/18 09 AC 10/22 PO 0855 Amlodipine Besylate 10 MG DAILY 10/18 0900 AC 10/22 PO 0855 Atorvastatin Calcium 5 MG 1700 10/18 1700 AC 10/22 PO 1651 Carbidopa/Levodopa 1 TAB TID 10/18 09 AC 10/22 PO 1438 Duloxetine HCl 60 MG TUES THURS SAT 10/19 09 AC 10/21 PO 0929 Fentanyl Citrate 12 MCG Q3D 10/18 0015 10/20 TOP 2334 Insulin Aspart 0 TIDAC 10/18 08 AC 10/22 SC 1749 Insulin Detemir 8 UNITS DAILY 10/18 09 10/22 SC 1020 Lactulose 1 BOT AT BEDTIME 10/22 2100 AC MD Lactulose 1 BOT ONCE ONE 10/22 1830 DC MD 10/22 1831 Lactulose 20 GM Q6H 10/22 0400 AC 10/22 PO 1639 Lactulose 1 BOT Q8H 10/22 0000 DC 10/22 MD 0903 Lactulose 20 GM Q6H 10/22 0000 DC PO Lactulose 1 BOT Q8 10/21 2200 DC MD Lactulose 20 GM Q6H 10/21 2200 DC 10/21 PO 2149 Lactulose 20 GM Q6 10/21 1800 DC 10/21 PO 1733 Levothyroxine Sodium 0.175 MG DAILY AC 10/18 0700 AC 10/22 PO 0602 Midodrine 5 MG 0800,1200,1600 10/22 1600 AC 10/22 PO 1748 Octreotide Acetate 100 MCG TID 10/20 2100 AC 10/22 SC 1437 Omeprazole 40 MG DAILY AC 10/18 0700 AC 10/22 PO 0602 Ondansetron HCl 4 MG .STK-MED ONE 10/22 1714 DC IV 10/22 1715 Ondansetron HCl 4 MG ONCE ONE 10/22 0615 DC 10/22 IV 10/22 0616 0607 Promethazine HCl 12.5 MG Q6P PRN 10/21 1100 AC IV 10/28 1059 Rifaximin 550 MG BID 10/18 0015 AC 10/22 PO 0855 Results Pertinent Lab Results: Laboratory Tests 10/22 10/21 10/21 10/21 0808 1645 3635 0712 Chemistry Sodium (137 - 145 mmol/L) 137 137 Potassium (3.5 - 5.1 mmol/L) 5.4 H 5.1 Chloride (98 - 107 mmol/L) 101 103 Carbon Dioxide (22 - 30 mmol/L) 24 22 Anion Gap (5 - 16) 13 12 BUN (7 - 17 mg/dL) 91 H 86 H Creatinine (0.5 - 1.0 mg/dL) 4.2 H 4.2 H Estimated GFR (>60 ml/min) 10 L 10 L BUN/Creatinine Ratio (7 - 25 %) 21.7 20.5 Total Bilirubin (0.2 - 1.3 mg/dL) 2.6 H Direct Bilirubin (< 0.4 mg/dL) 1.4 H AST (14 - 36 U/L) 88 H ALT (9 - 52 U/L) 35 Alkaline Phosphatase (<127 U/L) 383 H Ammonia (9 - 30 umol/L) 66 H Total Protein (6.3 - 8.2 g/dL) 6.1 L Albumin (3.5 - 5.0 g/dL) 3.7 Coagulation PT (9.4 - 12.5 SEC) 12.4 INR (0.90 - 1.19) 1.14 Hematology CBC w Diff NO MAN DIFF REQ WBC (4.8 - 10.8 /CUMM) 4.8 RBC (4.20 - 5.40 /CUMM) 2.81 L Hgb (12.0 - 16.0 G/DL) 9.4 L Hct (37 - 47 %) 28.3 L MCV (81.0 - 99.0 FL) 100.6 H MCH (27.0 - 31.0 PG) 33.5 H MCHC (33.0 - 37.0 G/DL) 33.3 RDW (11.5 - 14.5 %) 17.2 H Plt Count (130 - 400 /CUMM) 68 L MPV (7.4 - 10.4 FL) 10.2 Gran % (42.2 - 75.2 %) 63.6 Lymphocytes % (20.5 - 51.1 %) 18.5 L Monocytes % (1.7 - 9.3 %) 14.9 H Eosinophils % (0 - 5 %) 2.3 Basophils % (0.0 - 2.0 %) 0.7 Absolute Granulocytes (1.4 - 6.5 /CUMM) 3.0 Absolute Lymphocytes (1.2 - 3.4 /CUMM) 0.9 L Absolute Monocytes (0.10 - 0.60 /CUMM) 0.7 H Absolute Eosinophils (0.0 - 0.7 /CUMM) 0.1 Absolute Basophils (0.0 - 0.2 /CUMM) 0 10/20 075 Chemistry Sodium (137 - 145 mmol/L) 138 134 L 135 L Potassium (3.5 - 5.1 mmol/L) 5.1 5.5 H 5.9 H Chloride (98 - 107 mmol/L) 100 101 102 Carbon Dioxide (22 - 30 mmol/L) 21 L 21 L 22 Anion Gap (5 - 16) 16 13 10 BUN (7 - 17 mg/dL) 82 H 84 H 81 H Creatinine (0.5 - 1.0 mg/dL) 4.3 H 4.2 H 4.4 H Estimated GFR (>60 ml/min) 10 L 10 L 10 L BUN/Creatinine Ratio (7 - 25 %) 19.1 20.0 18.4 Calcium (8.4 - 10.2 mg/dL) 10.6 H Phosphorus (2.5 - 4.5 mg/dL) 3.6 Magnesium (1.6 - 2.3 mg/dL) 2.2 Total Bilirubin (0.2 - 1.3 mg/dL) 2.5 H Direct Bilirubin (< 0.4 mg/dL) 1.3 H AST (14 - 36 U/L) 79 H ALT (9 - 52 U/L) 33 Alkaline Phosphatase (<127 U/L) 368 H Total Protein (6.3 - 8.2 g/dL) 5.9 L Albumin (3.5 - 5.0 g/dL) 3.5 Coagulation PT (9.4 - 12.5 SEC) 14.2 H INR (0.90 - 1.19) 1.30 H Hematology CBC w Diff NO MAN DIFF REQ WBC (4.8 - 10.8 /CUMM) 4.9 RBC (4.20 - 5.40 /CUMM) 2.78 L Hgb (12.0 - 16.0 G/DL) 9.3 L Hct (37 - 47 %) 28.2 L MCV (81.0 - 99.0 FL) 101.2 H MCH (27.0 - 31.0 PG) 33.4 H MCHC (33.0 - 37.0 G/DL) 33.0 RDW (11.5 - 14.5 %) 17.7 H Plt Count (130 - 400 /CUMM) 74 L MPV (7.4 - 10.4 FL) 10.4 Gran % (42.2 - 75.2 %) 59.6 Lymphocytes % (20.5 - 51.1 %) 24.1 Monocytes % (1.7 - 9.3 %) 13.7 H Eosinophils % (0 - 5 %) 2.2 Basophils % (0.0 - 2.0 %) 0.4 Absolute Granulocytes (1.4 - 6.5 /CUMM) 2.9 Absolute Lymphocytes (1.2 - 3.4 /CUMM) 1.2 Absolute Monocytes (0.10 - 0.60 /CUMM) 0.7 H Absolute Eosinophils (0.0 - 0.7 /CUMM) 0.1 Absolute Basophils (0.0 - 0.2 /CUMM) 0 10/19 2315 Chemistry Sodium (137 - 145 mmol/L) 134 L Potassium (3.5 - 5.1 mmol/L) 5.5 H Chloride (98 - 107 mmol/L) 101 Carbon Dioxide (22 - 30 mmol/L) 22 Anion Gap (5 - 16) 11 BUN (7 - 17 mg/dL) 84 H Creatinine (0.5 - 1.0 mg/dL) 4.3 H Estimated GFR (>60 ml/min) 10 L BUN/Creatinine Ratio (7 - 25 %) 19.5 Calcium (8.4 - 10.2 mg/dL) 10.8 H Phosphorus (2.5 - 4.5 mg/dL) 3.7 Magnesium (1.6 - 2.3 mg/dL) 2.2
[2017-10-22 21:56] VITALS: BP 132/70
[2017-10-23 06:20] VITALS: BP 146/78
--- NOTE | 2017-10-23 08:19 | PN- Housestaff ---
Subjective Follow-up For: -AMS likely secondary to hyperammonemia secondary to SORIA cirrhosis -Electrolytes abnormalities: Hypercalcemia, hyperkalemia -JOHN on CKD: secondary to hepatorenal syndrome, dehydration Subjective: seen and examined at bedside. No overnight events. Patient appears lethargic. She is alert and oriented 3. Review of Systems Constitutional: Reports: no symptoms, see HPI. Objective Last 24 Hrs of Vital Signs/I&O Vital Signs Date Time Temp Pulse Resp B/P B/P Pulse O2 O2 Flow FiO2 Mean Ox Delivery Rate 10/23 0853 146/78 10/23 0800 93 Room Air Room Air 10/23 0620 98.8 94 20 146/78 92 Room Air 10/23 0000 Room Air 10/22 2156 97.9 95 20 132/70 93 Room Air 10/22 1355 98.3 95 20 100/62 95 Room Air Intake & Output 10/23 1600 10/23 0800 10/23 0000 Intake Total Output Total Balance Number 2 3 Bowel Movements Physical Exam General Appearance: Alert, Oriented X3, No Acute Distress Cardiovascular: Normal S1, Normal S2 Lungs: Normal Air Movement Abdomen: Soft, No Tenderness, No Hepatospenomegaly Current Medications: Current Medications Sig/Jennifer Start time Last Medication Dose Route Stop Time Status Admin Allopurinol 100 MG DAILY 10/18 09 DC 10/23 PO 0853 Amlodipine Besylate 10 MG DAILY 10/18 0900 AC 10/23 PO 0853 Atorvastatin Calcium 5 MG 1700 10/18 1700 DC 10/22 PO 1651 Carbidopa/Levodopa 1 TAB TID 10/18 0900 10/23 PO 0854 Duloxetine HCl 60 MG TUES THURS SAT 10/19 0900 DC 10/23 PO 0853 Fentanyl Citrate 12 MCG Q3D 10/18 0015 10/20 TOP 2334 Insulin Aspart 0 TIDAC 10/18 0800 DC 10/22 SC 1749 Insulin Detemir 8 UNITS DAILY 10/18 09 MS 10/23 SC 0854 Lactulose 1 BOT AT BEDTIME 10/22 2100 DC 10/23 MO 0107 Lactulose 1 BOT ONCE ONE 10/22 1830 DC 10/22 MO 10/22 1831 2046 Lactulose 20 GM Q6H 10/22 0400 10/23 PO 0908 Levothyroxine Sodium 0.175 MG DAILY AC 10/18 0700 DC 10/22 PO 0602 Midodrine 5 MG 0800,1200,1600 10/22 1600 DC 10/23 PO 0808 Octreotide Acetate 100 MCG TID 10/20 2100 DC 10/23 SC 0902 Omeprazole 40 MG DAILY AC 10/18 0700 AC 10/22 PO 0602 Ondansetron HCl 4 MG .STK-MED ONE 10/22 1714 DC IV 10/22 1715 Promethazine HCl 12.5 MG Q6P PRN 10/21 1100 AC 10/22 IV 10/28 1059 1916 Rifaximin 550 MG BID 10/18 0015 DC 10/23 PO 0854 Last 24 Hrs of Lab/Unruly Results Last 24 Hrs of Labs/Mics: Laboratory Tests 10/23/17 0638: Anion Gap 12, Estimated GFR 10 L, BUN/Creatinine Ratio 20.9, Total Bilirubin 3.1 H, Direct Bilirubin 1.6 H, AST 88 H, ALT 40, Alkaline Phosphatase 525 H, Total Protein 6.0 L, Albumin 3.4 L, CBC w Diff NO MAN DIFF REQ, RBC 3.08 L, MCV 102.2 H, MCH 34.1 H, MCHC 33.4, RDW 18.0 H, MPV 10.2, Gran % 62.4, Lymphocytes % 20.2 L, Monocytes % 13.7 H, Eosinophils % 3.1, Basophils % 0.6, Absolute Granulocytes 4.2, Absolute Lymphocytes 1.4, Absolute Monocytes 0.9 H, Absolute Eosinophils 0.2, Absolute Basophils 0 Assessment/Plan Assessment: Patient is 81-year-old female presented with nausea, vomiting, abdominal distention and altered mental status. Patient was recently admitted here with similar complaints, at the time found to have a UTI which had likely precipitated an episode of acute hepatic encephalopathy. Patient had abdominal paracentesis done as well, 6 L of transudative fluid was removed. SBP was ruled out. She was put on lactulose as well and over time, her AMS resolved. She was discharged on rifaxamin. She had continued therapeutic paracentesis outpatient. 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 Problem List: AMS likely secondary to hyperammonemia secondary to SORIA cirrhosis Electrolytes abnormalities: Hypercalcemia, hyperkalemia JOHN on CKD: secondary to hepatorenal syndrome, dehydration * Extensive goals of care discussion with the patient's family was done by Garth Gillespie MD. Patient's family decided to convert her to comfort care. We will inform case management to call hospice. Meanwhile will discontinue all unnecessary medications. We will make her comfortable. We will continue lactulose, IV Phenergan, omeprazole, fentanyl patch, Sinemet, amlodipine. No blood draws/imaging studies. Patient would like to go to [facility]. Problem List: 1. Hepatic encephalopathy Pain Ratin Pain Location: none Pain Goal: Remain pain free Pain Plan: tylenol Tomorrow's Labs & Rationales: none
[2017-10-23 08:33] LABS: ABSOLUTE BASOPHIL COUNT 0 /CUMM (0.0-0.2); ABSOLUTE EOSINOPHIL COUNT 0.2 /CUMM (0.0-0.7); ABSOLUTE GRANULOCYTE CT 4.2 /CUMM (1.4-6.5); ABSOLUTE LYMPH COUNT 1.4 /CUMM (1.2-3.4); ABSOLUTE MONOCYTE COUNT 0.9 /CUMM (0.10-0.60); BASOPHIL % 0.6 % (0.0-2.0); EOSINOPHIL % 3.1 % (0-5); GRANULOCYTE % 62.4 % (42.2-75.2); HEMATOCRIT 31.5 % (37-47); MEAN CORPUSCULAR HGB 34.1 PG (27.0-31.0); MEAN CORPUSCULAR HGB CONC 33.4 G/DL (33.0-37.0); MEAN CORPUSCULAR VOLUME 102.2 FL (81.0-99.0); MEAN PLATELET VOLUME 10.2 FL (7.4-10.4); PLATELET COUNT 82 /CUMM (130-400); RED BLOOD CELL CT 3.08 /CUMM (4.20-5.40); WHITE BLOOD CELL COUNT 6.8 /CUMM (4.8-10.8)
--- NOTE | 2017-10-23 11:35 | PN- Att Addend ---
Attending Addendum Attending Brief Note Patient seen and examined. Plan of care discussed with the medical team and the patient. Available lab work and radiology test reports were reviewed. Patient still lethargic and sleepy and has clubbing tremors of both hand. Seemed to be more awake and alert today but continues to have flapping tremors of both hands. Her by mouth intake has decreased. He had several bowel motion just today. Overall does not appear any better than yesterday. Family reports some hallucinations. Exam: General: Patient appears lethargic and sleepy and partially oriented without any distress CVS: S1 plus S2 without any murmur or gallops Chest: Few scattered crepitation without any wheeze. There is no respiratory distress. 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 and partially oriented without any focal neuro deficit and follows commands appropriately Extremities: Mild edema; no clubbing or cyanosis noted ; bilateral asterixis noted Assessment * Recurrent ascites secondary to decompensated cirrhosis- patient status post diagnostic and therapeutic ascitic tap; no signs of SBP * Hepatitic encephalopathy- patient has not made any significant improvement despite aggressive medical therapy over one week * Acute kidney injury on chronic kidney disease,suspected hepatorenal syndrome, creatinine slightly improved but seems to have stabilized around 4.3 * Hypercalcemia due to hyperparathyroidism; patient currently does not meet criteria for surgery; she should be watched conservatively * Elevated bilirubin * Hx of DM, HTN, HLD, CAD, * 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, * portal hypertension, * ROD, * hypothyroidism, * gout, * spinal stenosis, * CKD * Hyperkalemia- likely due to worsening renal failure Plan * Prognosis remains poor and patient has not made significant progress despite aggressive medical therapy; I had long discussion with and patient's daughter today. I explained patient's situation current medical treatment and prognosis. After discussion family has decided to pursue hospice care. Family also wants to keep her comfort and they want to withdraw any blood work or any further testing and hematocrit therapy has to be geared towards patient's comfort rather than cure. * Please arrange hospice evaluation * Continue oral lactulose * Discontinue midodrine, Cymbalta, Lipitor, Levemir, Sinemet, allopurinol, amlodipine, rifaximin * Can continue oral are normal for pain, can continue low-dose fentanyl patch, and oral lactulose * No further lab testing radiology testing * Patient would like to go back to [facility] and pursue hospice care there Current Medications Sig/Jennifer Start time Last Medication Dose Route Stop Time Status Admin Allopurinol 100 MG DAILY 10/18 09 [place] 10/23 PO 0853 Amlodipine Besylate 10 MG DAILY 10/18 09 10/23 PO 0853 Atorvastatin Calcium 5 MG 1700 10/18 1700 DC 10/22 PO 1651 Carbidopa/Levodopa 1 TAB TID 10/18 09 10/23 PO 0854 Duloxetine HCl 60 MG TUES THURS SAT 10/19 09 WA 10/23 PO 0853 Fentanyl Citrate 12 MCG Q3D 10/18 0015 10/20 TOP 2334 Insulin Aspart 0 TIDAC 10/18 08 WA 10/22 SC 1749 Insulin Detemir 8 UNITS DAILY 10/18 09 WA 10/23 SC 0854 Lactulose 1 BOT AT BEDTIME 10/22 2100 WA 10/23 IN 0107 Lactulose 1 BOT ONCE ONE 10/22 1830 DC 10/22 IN 10/22 1831 2046 Lactulose 20 GM Q6H 10/22 0400 10/23 PO 0908 Levothyroxine Sodium 0.175 MG DAILY AC 10/18 0700 [place] 10/22 PO 0602 Midodrine 5 MG 0800,1200,1600 10/22 1600 [place] 10/23 PO 0808 Octreotide Acetate 100 MCG TID 10/20 2100 WA 10/23 SC 0902 Omeprazole 40 MG DAILY AC 10/18 0700 10/22 PO 0602 Ondansetron HCl 4 MG .STK-MED ONE 10/22 1714 DC IV 10/22 1715 Promethazine HCl 12.5 MG Q6P PRN 10/21 1100 10/22 IV 10/28 1059 1916 Rifaximin 550 MG BID 10/18 0015 [place] 10/23 PO 0854 Laboratory Tests 10/23/17 0638: Anion Gap 12, Estimated GFR 10 L, BUN/Creatinine Ratio 20.9, Total Bilirubin 3.1 H, Direct Bilirubin 1.6 H, AST 88 H, ALT 40, Alkaline Phosphatase 525 H, Total Protein 6.0 L, Albumin 3.4 L, CBC w Diff NO MAN DIFF REQ, RBC 3.08 L, MCV 102.2 H, MCH 34.1 H, MCHC 33.4, RDW 18.0 H, MPV 10.2, Gran % 62.4, Lymphocytes % 20.2 L, Monocytes % 13.7 H, Eosinophils % 3.1, Basophils % 0.6, Absolute Granulocytes 4.2, Absolute Lymphocytes 1.4, Absolute Monocytes 0.9 H, Absolute Eosinophils 0.2, Absolute Basophils 0 10/22/17 0808: Anion Gap 13, Estimated GFR 10 L, BUN/Creatinine Ratio 21.7 10/21/17 1645: Ammonia 66 H 10/21/17 0755: CBC w Diff NO MAN DIFF REQ, RBC 2.81 L, MCV 100.6 H, MCH 33.5 H, MCHC 33.3, RDW 17.2 H, MPV 10.2, Gran % 63.6, Lymphocytes % 18.5 L, Monocytes % 14.9 H, Eosinophils % 2.3, Basophils % 0.7, Absolute Granulocytes 3.0, Absolute Lymphocytes 0.9 L, Absolute Monocytes 0.7 H, Absolute Eosinophils 0.1, Absolute Basophils 0 10/21/17 0715: Anion Gap 12, Estimated GFR 10 L, BUN/Creatinine Ratio 20.5, Total Bilirubin 2.6 H, Direct Bilirubin 1.4 H, AST 88 H, ALT 35, Alkaline Phosphatase 383 H, Total Protein 6.1 L, Albumin 3.7, PT 12.4, INR 1.14 10/20/170: Anion Gap 16, Estimated GFR 10 L, BUN/Creatinine Ratio 19.1 10/20/172009: Anion Gap 13, Estimated GFR 10 L, BUN/Creatinine Ratio 20.0 Vital Signs Date Time Temp Pulse Resp B/P B/P Pulse O2 O2 Flow FiO2 Mean Ox Delivery Rate 10/23 0853 146/78 10/23 0800 93 Room Air Room Air 10/23 0620 98.8 94 20 146/78 92 Room Air 10/23 0000 Room Air 10/22 2156 97.9 95 20 132/70 93 Room Air 10/22 1355 98.3 95 20 100/62 95 Room Air Intake & Output 10/23 1600 10/23 0800 10/23 0000 Intake Total Output Total Balance Number 2 3 Bowel Movements
[2017-10-23 14:13] VITALS: BP 135/90
--- NOTE | 2017-10-23 17:23 | PN- Gastroenterology ---
Assessment/Plan GI Assessment/Recommendations: ASSESSMENT: 1. Decompensated Cirrhosis 2. Hepatorenal Syndrome 3. Parkinson's Disease I have reviewed the recent notes from house staff and documentation of the conversations they have had with the patient's family. RECOMMENDATIONS: As patient, per family wishes is to be a hospice care patient, GI will sign off for now. Please do not hesitate to contact us as needed. Subjective Subjective: Patient awake, but non-verbal and minimally responsive. Objective Vital Signs and I&Os Vital Signs Date Time Temp Pulse Resp B/P B/P Pulse O2 O2 Flow FiO2 Mean Ox Delivery Rate 10/23 1600 Room Air 10/23 1413 98.3 98 16 135/90 91 Room Air 10/23 0853 146/78 10/23 0800 93 Room Air Room Air 10/23 0620 98.8 94 20 146/78 92 Room Air 10/23 0000 Room Air 10/22 2156 97.9 95 20 132/70 93 Room Air Intake & Output 10/23 1600 10/23 0400 10/22 1600 10/22 0400 10/21 1600 10/21 0400 Intake Total 60 180 100 245 200 Output Total 200 Balance 60 180 100 245 0 Intake, IV 20 75 100 Intake, Oral 60 160 100 170 100 Number 2 3 4 Bowel Movements Output, 50 Emesis Output, Urine 150 Physical Exam General Appearance: lethargic, moderate distress Abdomen: normal bowel sounds, soft, non-tender Neurologic/Psychiatric: disoriented x 3 Skin: jaundice Current Medications: Current Medications Sig/Jennifer Start time Last Medication Dose Route Stop Time Status Admin Allopurinol 100 MG DAILY 10/18 899 DC 10/23 PO 0853 Amlodipine Besylate 10 MG DAILY 10/18 09 AC 10/23 PO 0853 Atorvastatin Calcium 5 MG 1700 10/18 1700 DC 10/22 PO 1651 Carbidopa/Levodopa 1 TAB TID 10/18 09 10/23 PO 1345 Duloxetine HCl 60 MG TUES THURS SAT 10/19 09 DC 10/23 PO 0853 Fentanyl Citrate 12 MCG Q3D 10/18 0015 AC 10/20 TOP 2334 Insulin Aspart 0 TIDAC 10/18 08 DC 10/22 SC 1749 Insulin Detemir 8 UNITS DAILY 10/18 09 DC 10/23 SC 0854 Lactulose 1 BOT AT BEDTIME 10/22 2100 DC 10/23 [place] 0107 Lactulose 1 BOT ONCE ONE 10/22 1830 DC 10/22 AL 10/22 1832045 Lactulose 20 GM Q6H 10/22 0400 AC 10/23 PO 0908 Levothyroxine Sodium 0.175 MG DAILY AC 10/18 0700 DC 10/22 PO 0602 Midodrine 5 MG 0800,1200,1600 10/22 1600 DC 10/23 PO 0808 Octreotide Acetate 100 MCG TID 10/20 2100 DC 10/23 SC 0902 Omeprazole 40 MG DAILY AC 10/18 0700 AC 10/22 PO 0602 Promethazine HCl 12.5 MG Q6P PRN 10/21 1100 AC 10/22 IV 10/28 1059 1916 Rifaximin 550 MG BID 10/18 0015 [place] 10/23 PO 0854 Results Pertinent Lab Results: Laboratory Tests 10/23 10/22 10/21 0638 0808 1645 Chemistry Sodium (137 - 145 mmol/L) 138 137 Potassium (3.5 - 5.1 mmol/L) 5.6 H 5.4 H Chloride (98 - 107 mmol/L) 102 101 Carbon Dioxide (22 - 30 mmol/L) 24 24 Anion Gap (5 - 16) 12 13 BUN (7 - 17 mg/dL) 90 H 91 H Creatinine (0.5 - 1.0 mg/dL) 4.3 H 4.2 H Estimated GFR (>60 ml/min) 10 L 10 L BUN/Creatinine Ratio (7 - 25 %) 20.9 21.7 Total Bilirubin (0.2 - 1.3 mg/dL) 3.1 H Direct Bilirubin (< 0.4 mg/dL) 1.6 H AST (14 - 36 U/L) 88 H ALT (9 - 52 U/L) 40 Alkaline Phosphatase (<127 U/L) 525 H Ammonia (9 - 30 umol/L) 66 H Total Protein (6.3 - 8.2 g/dL) 6.0 L Albumin (3.5 - 5.0 g/dL) 3.4 L Hematology CBC w Diff NO MAN DIFF REQ WBC (4.8 - 10.8 /CUMM) 6.8 RBC (4.20 - 5.40 /CUMM) 3.08 L Hgb (12.0 - 16.0 G/DL) 10.5 L Hct (37 - 47 %) 31.5 L MCV (81.0 - 99.0 FL) 102.2 H MCH (27.0 - 31.0 PG) 34.1 H MCHC (33.0 - 37.0 G/DL) 33.4 RDW (11.5 - 14.5 %) 18.0 H Plt Count (130 - 400 /CUMM) 82 L MPV (7.4 - 10.4 FL) 10.2 Gran % (42.2 - 75.2 %) 62.4 Lymphocytes % (20.5 - 51.1 %) 20.2 L Monocytes % (1.7 - 9.3 %) 13.7 H Eosinophils % (0 - 5 %) 3.1 Basophils % (0.0 - 2.0 %) 0.6 Absolute Granulocytes (1.4 - 6.5 /CUMM) 4.2 Absolute Lymphocytes (1.2 - 3.4 /CUMM) 1.4 Absolute Monocytes (0.10 - 0.60 /CUMM) 0.9 H Absolute Eosinophils (0.0 - 0.7 /CUMM) 0.2 Absolute Basophils (0.0 - 0.2 /CUMM) 0 10/21 10/21 10/20 10/20 6655 5215 2140 2009 Chemistry Sodium (137 - 145 mmol/L) 137 138 134 L Potassium (3.5 - 5.1 mmol/L) 5.1 5.1 5.5 H Chloride (98 - 107 mmol/L) 103 100 101 Carbon Dioxide (22 - 30 mmol/L) 22 21 L 21 L Anion Gap (5 - 16) 12 16 13 BUN (7 - 17 mg/dL) 86 H 82 H 84 H Creatinine (0.5 - 1.0 mg/dL) 4.2 H 4.3 H 4.2 H Estimated GFR (>60 ml/min) 10 L 10 L 10 L BUN/Creatinine Ratio (7 - 25 %) 20.5 19.1 20.0 Total Bilirubin (0.2 - 1.3 mg/dL) 2.6 H Direct Bilirubin (< 0.4 mg/dL) 1.4 H AST (14 - 36 U/L) 88 H ALT (9 - 52 U/L) 35 Alkaline Phosphatase (<127 U/L) 383 H Total Protein (6.3 - 8.2 g/dL) 6.1 L Albumin (3.5 - 5.0 g/dL) 3.7 Coagulation PT (9.4 - 12.5 SEC) 12.4 INR (0.90 - 1.19) 1.14 Hematology CBC w Diff NO MAN DIFF REQ WBC (4.8 - 10.8 /CUMM) 4.8 RBC (4.20 - 5.40 /CUMM) 2.81 L Hgb (12.0 - 16.0 G/DL) 9.4 L Hct (37 - 47 %) 28.3 L MCV (81.0 - 99.0 FL) 100.6 H MCH (27.0 - 31.0 PG) 33.5 H MCHC (33.0 - 37.0 G/DL) 33.3 RDW (11.5 - 14.5 %) 17.2 H Plt Count (130 - 400 /CUMM) 68 L MPV (7.4 - 10.4 FL) 10.2 Gran % (42.2 - 75.2 %) 63.6 Lymphocytes % (20.5 - 51.1 %) 18.5 L Monocytes % (1.7 - 9.3 %) 14.9 H Eosinophils % (0 - 5 %) 2.3 Basophils % (0.0 - 2.0 %) 0.7 Absolute Granulocytes (1.4 - 6.5 /CUMM) 3.0 Absolute Lymphocytes (1.2 - 3.4 /CUMM) 0.9 L Absolute Monocytes (0.10 - 0.60 /CUMM) 0.7 H Absolute Eosinophils (0.0 - 0.7 /CUMM) 0.1 Absolute Basophils (0.0 - 0.2 /CUMM) 0
[2017-10-23 21:36] VITALS: BP 120/80
[2017-10-24 06:56] VITALS: BP 110/78
--- NOTE | 2017-10-24 08:40 | PN- Housestaff ---
Subjective Follow-up For: -AMS likely secondary to hyperammonemia secondary to SORIA cirrhosis -Electrolytes abnormalities: Hypercalcemia, hyperkalemia -JOHN on CKD: secondary to hepatorenal syndrome, dehydration Subjective: Patient seen and examined. She states that she feels "a lot better than yesterday". She has less liver flap, denies shortness of breath, chest pain but notes that she did not sleep well. She is alert and oriented 3. On discussion of hospice she becomes teary. She is eating her breakfast at the time of interview. Review of Systems Constitutional: Reports: weakness. EENTM: Reports: no symptoms. Cardiovascular: Reports: no symptoms. Respiratory: Reports: no symptoms. Gastrointestinal: Reports: distention. Genitourinary: Reports: no symptoms. Musculoskeletal: Reports: no symptoms. Skin: Reports: no symptoms. Neurological/Psychological: Reports: no symptoms. Objective Last 24 Hrs of Vital Signs/I&O Vital Signs Date Time Temp Pulse Resp B/P B/P Pulse O2 O2 Flow FiO2 Mean Ox Delivery Rate 10/24 1557 Room Air 10/24 0815 95 140/78 10/24 0656 98.1 95 20 110/78 91 Room Air 10/24 0000 Room Air 10/23 2136 98.0 93 20 120/80 92 Intake & Output 10/24 1600 10/24 0800 10/24 0000 Intake Total 480 360 200 Output Total 400 Balance 80 360 200 Intake, Oral 480 360 200 Output, Urine 400 Physical Exam General Appearance: Alert, Oriented X3, Cooperative, No Acute Distress Skin: No Rashes, No Breakdown, No Significant Lesion Skin Temp/Moisture Exam: Warm/Dry Sepsis Skin Exam (color): Normal for Ethnicity HEENT: Atraumatic, EOMI, Mucous Membr. moist/pink Cardiovascular: Regular Rate, Normal S1, Normal S2, No Murmurs Lungs: Clear to Auscultation, Normal Air Movement Abdomen: Normal Bowel Sounds, Soft, No Tenderness, No Masses Neurological: Normal Speech Extremities: No Clubbing, No Cyanosis, No Edema, Normal Pulses Vascular: Normal Pulses, Pulses Symmetrical Current Medications: Current Medications Sig/Jennifer Start time Last Medication Dose Route Stop Time Status Admin Amlodipine Besylate 10 MG DAILY 10/18 899 AC 10/24 PO 0815 Carbidopa/Levodopa 1 TAB TID 10/18 899 AC 10/24 PO 1457 Fentanyl Citrate 12 MCG Q3D 10/18 0015 10/23 TOP 2331 Lactulose 20 GM Q6H 10/22 0400 AC 10/24 PO 0937 Omeprazole 40 MG DAILY AC 10/18 0700 AC 10/24 PO 0604 Ondansetron HCl 4 MG ONCE ONE 10/24 1545 DC 10/24 IV 10/24 1546 1603 Promethazine HCl 12.5 MG Q6P PRN 10/21 1100 AC 10/22 IV 10/28 1059 1916 Assessment/Plan Assessment: Patient is 81-year-old female presented with nausea, vomiting, abdominal distention and altered mental status. Patient was recently admitted here with similar complaints, at the time found to have a UTI which had likely precipitated an episode of acute hepatic encephalopathy. Patient had abdominal paracentesis done as well, 6 L of transudative fluid was removed. SBP was ruled out. She was put on lactulose as well and over time, her AMS resolved. She was discharged on rifaxamin. She had continued therapeutic paracentesis outpatient. 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 -Diagnostic paracentesis showed no SBP and ascites secondary to portal hypertension with SAAG > 1.1 -Vital signs every shift -continue PO lactulose. -Follow mental status with physical exam and not with repeat ammonia levels. of patient did want ammonia level so we redid it last night, was initially 101 and is now 66. -Patient continues to have waxing and waning clarity, lethargy, even with full treatment by nephrology and gastro for her problems. -Extensive goals of care discussion with the patient's family was done by Garth Gillespie MD. Patient's family decided to convert her to comfort care. Have had hospice consult the patient who has stated that she is not yet ready for hospice care as the patient appears clinically improved today. She is however comfort measures only so we will discontinue all unnecessary medications. We will continue lactulose, IV Phenergan, omeprazole, fentanyl patch, Sinemet, amlodipine. No blood draws/imaging studies. Patient would like to go to [facility]. Midodrine has been stopped. -Mobilize the patient was physical therapy which will be necessary before discharging her home. Asymptomatic UTI -Monitor CBC and vitals -Follow of antibiotics Gout history: -Due to JOHN, we have decreased dose of allopurinol Heart healthy DVT ppx: alps and pharmacologic DNR/DNI Problem List: 1. Hepatic encephalopathy 2. Liver failure Pain Ratin Pain Location: na Pain Goal: Remain pain free Pain Plan: na Tomorrow's Labs & Rationales: na
--- NOTE | 2017-10-24 12:38 | PN- Att Addend ---
Attending Addendum Attending Brief Note Patient seen and examined. Plan of care discussed with the medical team and the patient. Available lab work and radiology test reports were reviewed. Today patient is much more awake alert and she is eating her breakfast. Family is at the bedside. She reports decreased tremors of both hands. She is not sure whether she had good sleep last night and not. Exam: General: Patient appears awake alert and oriented without any distress CVS: S1 plus S2 without any murmur or gallops Chest: Few scattered crepitation without any wheeze. There is no respiratory distress. Abdomen: Soft and distended but non-tender, bowel sound present, no guarding or rebound WILL CALL CLERK: Awake oriented without any focal neuro deficit and follows commands appropriately Extremities: Mild edema; no clubbing or cyanosis noted ; minimal tremors of both hands Assessment * Recurrent ascites secondary to decompensated cirrhosis- patient status post diagnostic and therapeutic ascitic tap; no signs of SBP * Hepatitic encephalopathy- patient appears much better compared to yesterday * Acute kidney injury on chronic kidney disease,suspected hepatorenal syndrome, creatinine slightly improved but seems to have stabilized around 4.3 * Hypercalcemia due to hyperparathyroidism; patient currently does not meet criteria for surgery; she should be watched conservatively * Elevated bilirubin * Hx of DM, HTN, HLD, CAD, * 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, * portal hypertension, * ROD, * hypothyroidism, * gout, * spinal stenosis, * CKD * Hyperkalemia- likely due to worsening renal failure Plan * Prognosis remains poor and patient has not made significant progress despite aggressive medical therapy; I had long discussion with and patient's daughter on October 23. I explained patient's situation current medical treatment and prognosis. After discussion family has decided to pursue comfort measures. Family also wants to keep her comfort and they want to withdraw any blood work or any further testing and therapy has to be geared towards patient's comfort rather than cure. Patient was evaluated by hospice nurse today and patient was not deemed to be in hospice candidate at this point. * Continue current medications * Can continue oral are normal for pain, can continue low-dose fentanyl patch, and oral lactulose * No further lab testing radiology testing * Case management to work with patient and family to decide between going home versus going to group home; * Ambulate with assist; patient may need physical therapy evaluation if short- term rehabilitation is being considered Current Medications Sig/Jennifer Start time Last Medication Dose Route Stop Time Status Admin Amlodipine Besylate 10 MG DAILY 10/18 09 10/24 PO 0815 Carbidopa/Levodopa 1 TAB TID 10/18 09 10/24 PO 0815 Fentanyl Citrate 12 MCG Q3D 10/18 0015 10/23 TOP 2331 Lactulose 20 GM Q6H 10/22 0400 10/24 PO 0937 Omeprazole 40 MG DAILY 10/18 0700 10/24 PO 0604 Promethazine HCl 12.5 MG Q6P PRN 10/21 1100 10/22 IV 10/28 1059 1916 Laboratory Tests 10/23/17 0638: Anion Gap 12, Estimated GFR 10 L, BUN/Creatinine Ratio 20.9, Total Bilirubin 3.1 H, Direct Bilirubin 1.6 H, AST 88 H, ALT 40, Alkaline Phosphatase 525 H, Total Protein 6.0 L, Albumin 3.4 L, CBC w Diff NO MAN DIFF REQ, RBC 3.08 L, MCV 102.2 H, MCH 34.1 H, MCHC 33.4, RDW 18.0 H, MPV 10.2, Gran % 62.4, Lymphocytes % 20.2 L, Monocytes % 13.7 H, Eosinophils % 3.1, Basophils % 0.6, Absolute Granulocytes 4.2, Absolute Lymphocytes 1.4, Absolute Monocytes 0.9 H, Absolute Eosinophils 0.2, Absolute Basophils 0 10/22/17 0808: Anion Gap 13, Estimated GFR 10 L, BUN/Creatinine Ratio 21.7 10/21/17 1645: Ammonia 66 H Vital Signs Date Time Temp Pulse Resp B/P B/P Pulse O2 O2 Flow FiO2 Mean Ox Delivery Rate 10/24 0815 95 140/78 10/24 0656 98.1 95 20 110/78 91 Room Air 10/24 0000 Room Air 10/23 2136 98.0 93 20 120/80 92 10/23 1600 Room Air 10/23 1413 98.3 98 16 135/90 91 Room Air Intake & Output 10/24 1600 10/24 0800 10/24 0000 Intake Total 360 200 Output Total 400 Balance -400 360 200 Intake, Oral 360 200 Output, Urine 400
[2017-10-24 22:12] VITALS: BP 128/80
[2017-10-25 06:00] VITALS: BP 100/60
--- NOTE | 2017-10-25 10:12 | PN- Housestaff ---
Subjective Follow-up For: -AMS likely secondary to hyperammonemia secondary to SORIA cirrhosis -Electrolytes abnormalities: Hypercalcemia, hyperkalemia -JOHN on CKD: secondary to hepatorenal syndrome, dehydration Subjective: Patient seen and examined. She is alert and awake surrounded by family. She states that she feels "much better today". The patient is eating and drinking. She denies any nausea, vomiting, abdominal pain, confusion. Review of Systems Constitutional: Reports: no symptoms. EENTM: Reports: no symptoms. Cardiovascular: Reports: no symptoms. Respiratory: Reports: no symptoms. Gastrointestinal: Reports: no symptoms. Genitourinary: Reports: no symptoms. Musculoskeletal: Reports: no symptoms. Skin: Reports: no symptoms. Objective Last 24 Hrs of Vital Signs/I&O Vital Signs Date Time Temp Pulse Resp B/P B/P Pulse O2 O2 Flow FiO2 Mean Ox Delivery Rate 10/25 0913 90 130/64 10/25 0600 97.6 90 20 100/60 95 Room Air 10/25 0000 Room Air 10/24 2212 97.9 82 20 128/80 94 10/24 1557 Room Air Intake & Output 10/25 1600 10/25 0800 10/25 0000 Intake Total 360 500 Output Total 700 Balance 360 -200 Intake, Oral 360 500 Output, Urine 700 Physical Exam General Appearance: Alert, Oriented X3, Cooperative, No Acute Distress Skin: No Rashes, No Breakdown, No Significant Lesion Skin Temp/Moisture Exam: Warm/Dry Sepsis Skin Exam (color): Normal for Ethnicity HEENT: Atraumatic, EOMI, Mucous Membr. moist/pink Cardiovascular: Regular Rate, Normal S1, Normal S2, No Murmurs Lungs: Clear to Auscultation, Normal Air Movement Abdomen: Normal Bowel Sounds, Soft, No Tenderness, abdomen is much less distended thanprevious,no pain on palpation. Neurological: Normal Speech Current Medications: Current Medications Sig/Jennifer Start time Last Medication Dose Route Stop Time Status Admin Amlodipine Besylate 10 MG DAILY 10/18 899 AC 10/25 PO 912 Carbidopa/Levodopa 1 TAB TID 10/18 899 AC 10/25 PO 913 Fentanyl Citrate 12 MCG Q3D 10/18 0015 DC 10/23 TOP 2331 Lactulose 20 GM Q6H 10/22 0400 AC 10/25 PO 09 Omeprazole 40 MG DAILY AC 10/18 0700 AC 10/25 PO 0541 Ondansetron HCl 4 MG .STK-MED ONE 10/24 1600 DC PO 10/24 1601 Ondansetron HCl 4 MG ONCE ONE 10/24 1545 DC 10/24 IV 10/24 1546 1603 Promethazine HCl 12.5 MG Q6P PRN 10/21 1100 AC 10/22 IV 10/28 1059 1916 Assessment/Plan Assessment: Patient is 81-year-old female presented with nausea, vomiting, abdominal distention and altered mental status. Patient was recently admitted here with similar complaints, at the time found to have a UTI which had likely precipitated an episode of acute hepatic encephalopathy. Patient had abdominal paracentesis done as well, 6 L of transudative fluid was removed. SBP was ruled out. She was put on lactulose as well and over time, her AMS resolved. She was discharged on rifaxamin. She had continued therapeutic paracentesis outpatient. 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 -Diagnostic paracentesis showed no SBP and ascites secondary to portal hypertension with SAAG > 1.1 -Vital signs every shift -continue PO lactulose. -Follow mental status with physical exam and not with repeat ammonia levels. of patient did want ammonia level so we redid it last night, was initially 101 and is now 66. -Patient continues to have waxing and waning clarity, lethargy, even with full treatment by nephrology and gastro for her problems. -Extensive goals of care discussion with the patient's family was done by Garth Gillespie MD. Patient's family decided to convert her to comfort care. Have had hospice consult the patient who has stated that she is not yet ready for hospice care as the patient appears clinically improved today. She is however comfort measures only so we will discontinue all unnecessary medications. We will continue lactulose, IV Phenergan, omeprazole, fentanyl patch, Sinemet, amlodipine. No blood draws/imaging studies. Patient would like to go to [facility]. Midodrine has been stopped. -Mobilize the patient was physical therapy which will be necessary before discharging her home. Plan is to hopefully send patient home tomorrow as long as clinical status remains good. Asymptomatic UTI -Monitor CBC and vitals -Follow of antibiotics Gout history: -Due to JOHN, we have decreased dose of allopurinol Heart healthy DVT ppx: alps and pharmacologic DNR/DNI Problem List: 1. Hepatic encephalopathy Pain Ratin Pain Location: na Pain Goal: Remain pain free Pain Plan: na Tomorrow's Labs & Rationales: bep
--- NOTE | 2017-10-25 11:39 | PN- Att Addend ---
Attending Addendum Attending Brief Note Patient seen and examined. Plan of care discussed with the medical team and the patient. Available lab work and radiology test reports were reviewed. Today patient is much more awake alert. Family is at the bedside. She still had difficulty sleeping last night. She reports decreased tremors of both hands. Denies any difficulty breathing fever chills or abdominal pain. Exam: General: Patient appears awake alert and oriented without any distress CVS: S1 plus S2 without any murmur or gallops Chest: Few scattered crepitation without any wheeze. There is no respiratory distress. Abdomen: Soft and distended but non-tender, bowel sound present, no guarding or rebound TRACK GREASER: Awake oriented without any focal neuro deficit and follows commands appropriately Extremities: Mild edema; no clubbing or cyanosis noted ; no tremors of both hands Assessment * Recurrent ascites secondary to decompensated cirrhosis- patient status post diagnostic and therapeutic ascitic tap; no signs of SBP * Hepatitic encephalopathy- patient appears much better compared to yesterday and is currently stable * Acute kidney injury on chronic kidney disease,suspected hepatorenal syndrome, creatinine slightly improved but seems to have stabilized around 4.3 * Hypercalcemia due to hyperparathyroidism; patient currently does not meet criteria for surgery; she should be watched conservatively * Elevated bilirubin * Hx of DM, HTN, HLD, CAD, * 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, * portal hypertension, * ROD, * hypothyroidism, * gout, * spinal stenosis, * CKD * Hyperkalemia- likely due to worsening renal failure Plan * Prognosis remains poor and patient has not made significant progress despite aggressive medical therapy; I had long discussion with and patient's daughter on October 23. I explained patient's situation current medical treatment and prognosis. After discussion family has decided to pursue comfort measures. Family also wants to keep her comfort and they want to withdraw any blood work or any further testing and therapy has to be geared towards patient's comfort rather than cure. Patient was evaluated by hospice nurse yesterday and patient was not deemed to be a candidate for inpatient hospice care. Plan now to send patient home with hospice care tomorrow * Continue current medications * Can continue oral are normal for pain, can continue low-dose fentanyl patch, and oral lactulose * Repeat BEP in a.m. * Case management to work with patient and family to decide between going home versus going to skilled nursing; Current Medications Sig/Jennfier Start time Last Medication Dose Route Stop Time Status Admin Amlodipine Besylate 10 MG DAILY 10/18 09 10/25 PO 0913 Carbidopa/Levodopa 1 TAB TID 10/18 09 10/25 PO 0914 Fentanyl Citrate 12 MCG Q3D 10/18 0015 NC 10/23 TOP 2331 Lactulose 20 GM Q6H 10/22 0400 10/25 PO 0914 Omeprazole 40 MG DAILY 10/18 0700 10/25 PO 0541 Ondansetron HCl 4 MG .STK-MED ONE 10/24 1600 DC PO 10/24 1601 Ondansetron HCl 4 MG ONCE ONE 10/24 1545 DC 10/24 IV 10/24 1546 1603 Promethazine HCl 12.5 MG Q6P PRN 10/21 1100 AC 10/22 IV 10/28 1059 1916 Laboratory Tests 10/23/17 0638: Anion Gap 12, Estimated GFR 10 L, BUN/Creatinine Ratio 20.9, Total Bilirubin 3.1 H, Direct Bilirubin 1.6 H, AST 88 H, ALT 40, Alkaline Phosphatase 525 H, Total Protein 6.0 L, Albumin 3.4 L, CBC w Diff NO MAN DIFF REQ, RBC 3.08 L, MCV 102.2 H, MCH 34.1 H, MCHC 33.4, RDW 18.0 H, MPV 10.2, Gran % 62.4, Lymphocytes % 20.2 L, Monocytes % 13.7 H, Eosinophils % 3.1, Basophils % 0.6, Absolute Granulocytes 4.2, Absolute Lymphocytes 1.4, Absolute Monocytes 0.9 H, Absolute Eosinophils 0.2, Absolute Basophils 0 Vital Signs Date Time Temp Pulse Resp B/P B/P Pulse O2 O2 Flow FiO2 Mean Ox Delivery Rate 10/25 912 90 130/64 10/25 06 97.6 90 20 100/60 95 Room Air 10/25 0000 Room Air 10/25 2211 97.9 82 20 128/80 94 10/24 1557 Room Air Intake & Output 10/25 1600 10/25 0800 10/25 0000 Intake Total 360 500 Output Total 700 Balance 360 -200 Intake, Oral 360 500 Output, Urine 700
[2017-10-25 14:59] VITALS: BP 100/62
[2017-10-25 21:57] VITALS: BP 130/80
[2017-10-26 07:11] VITALS: BP 134/80
--- NOTE | 2017-10-26 11:48 | Event Note ---
Event Note Event Note: The patient needs a wheel chair and a bed evans prescription if the patient is discharged to home.
--- NOTE | 2017-10-26 12:59 | PN- Att Addend ---
Attending Addendum Attending Brief Note Patient seen and examined. Chart reviewed. Spoke in detail with and daughter. Today she is awake. Housestaff and nursing reports she is more alert today compared to previous. She still is lethargic. She had episodes of vomiting yesterday but tolerated breakfast and meals this morning. Denies any nausea. Denies any vomiting. Denies any abdominal pain. Patient and have determined to go home with hospice care only. Vital Signs Date Time Temp Pulse Resp B/P B/P Pulse O2 O2 Flow FiO2 Mean Ox Delivery Rate 10/26 0909 90 134/80 10/26 0711 97.6 90 18 134/80 93 Room Air 10/25 2157 97.5 90 20 130/80 92 10/25 1459 97.8 87 20 100/62 96 Room Air General appearance: Lethargic, not in respiratory distress. Heart: S1-S2 regular Lungs: Clear bilaterally Abdomen: Mildly distended, soft, nontender with normal bowel sounds. Extremities: No peripheral edema. Skin: Intact Laboratory Tests 10/26/17 0740: Anion Gap 11, Estimated GFR 11 L, BUN/Creatinine Ratio 25.5 H Problems: 1. Recurrent hepatic encephalopathy 2. Hepatorenal syndrome 3. Cirrhosis 4. Hyperkalemia Plan: -Administer Kayexalate, insulin and D50. -Repeat potassium level later this afternoon -Anticipate discharge home in a.m. on home hospice care. Patient will require a hospital bed and wheelchair upon discharge. Arrangements are being made to obtain this today. - Resume her levothyroxine. -Upon discharge patient is to continuecurrent dose of lactulose, Antiemetic therapy, rifaximin, amlodipine, fentanyl patch, Sinemet, on her insulin regimen.
--- NOTE | 2017-10-26 13:21 | PN- Housestaff ---
Subjective Follow-up For: -AMS likely secondary to hyperammonemia secondary to SORIA cirrhosis -Electrolytes abnormalities: Hypercalcemia, hyperkalemia -JOHN on CKD: secondary to hepatorenal syndrome, dehydration Subjective: Patient this morning stated that she fellt good. She had less nausea and vomiting., no abdominal pain. However this afternoon the patient was nauseous and vomiting. Patient is comfort care and will be discharged to hospice home. Review of Systems Constitutional: Reports: no symptoms. EENTM: Reports: no symptoms. Cardiovascular: Reports: no symptoms. Respiratory: Reports: no symptoms. Gastrointestinal: Reports: nausea, vomiting. Genitourinary: Reports: no symptoms. Musculoskeletal: Reports: no symptoms. Objective Last 24 Hrs of Vital Signs/I&O Vital Signs Date Time Temp Pulse Resp B/P B/P Pulse O2 O2 Flow FiO2 Mean Ox Delivery Rate 10/26 1400 97.8 92 20 122/56 94 10/26 0909 90 134/80 10/26 0711 97.6 90 18 134/80 93 Room Air 10/25 2157 97.5 90 20 130/80 92 Intake & Output 10/26 1600 10/26 0800 10/26 0000 Intake Total 200 0 0 Output Total Balance 200 0 0 Intake, Oral 200 0 0 Number 0 Bowel Movements Physical Exam General Appearance: Alert, Oriented X3, Cooperative, No Acute Distress HEENT: Atraumatic, PERRLA, EOMI Cardiovascular: Regular Rate, Normal S1, Normal S2 Lungs: Clear to Auscultation, Normal Air Movement Abdomen: Normal Bowel Sounds, Soft, No Masses, abdomen less distended than admission sp paracentesis. Neurological: Normal Speech Extremities: No Clubbing, No Cyanosis, No Edema Current Medications: Current Medications Sig/Jennifer Start time Last Medication Dose Route Stop Time Status Admin Amlodipine Besylate 10 MG DAILY 10/18 09 AC 10/26 PO 0909 Carbidopa/Levodopa 1 TAB TID 10/18 09 AC 10/26 PO 1343 Dextrose 25 GM ONCE ONE 10/26 1000 DC 10/26 IV 10/26 1001 1137 Insulin Human Regular 10 UNITS ONCE ONE 10/26 1000 DC 10/26 IV 10/26 1001 1137 Lactulose 20 GM Q6H 10/22 0400 AC 10/26 PO 0909 Levothyroxine Sodium 0.175 MG DAILY AC 10/27 0700 AC PO Omeprazole 40 MG DAILY AC 10/18 0700 AC 10/25 PO 0541 Promethazine HCl 12.5 MG Q6P PRN 10/21 1100 AC 10/26 IV 10/28 1059 1700 Sodium Polystyrene 60 ML ONCE ONE 10/27 1999 DC Sulfonate PO 10/26 2000 Sodium Polystyrene 60 ML ONCE ONE 10/26 1000 DC 10/26 Sulfonate PO 10/26 1001 1137 Last 24 Hrs of Lab/Unruly Results Last 24 Hrs of Labs/Mics: Laboratory Tests 10/26/17 1640: Anion Gap 13, Estimated GFR 10 L, BUN/Creatinine Ratio 24.1 10/26/17 0740: Anion Gap 11, Estimated GFR 11 L, BUN/Creatinine Ratio 25.5 H Assessment/Plan Assessment: Patient is 81-year-old female presented with nausea, vomiting, abdominal distention and altered mental status. Patient was recently admitted here with similar complaints, at the time found to have a UTI which had likely precipitated an episode of acute hepatic encephalopathy. Patient had abdominal paracentesis done as well, 6 L of transudative fluid was removed. SBP was ruled out. She was put on lactulose as well and over time, her AMS resolved. She was discharged on rifaxamin. She had continued therapeutic paracentesis outpatient. 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 -Diagnostic paracentesis showed no SBP and ascites secondary to portal hypertension with SAAG > 1.1 -Vital signs every shift -continue PO lactulose. -Follow mental status with physical exam and not with repeat ammonia levels. -Patient continued to have waxing and waning clarity, lethargy, even with full treatment by nephrology and gastro for her problems. Now, her midodrine and octreotide have been stopped as she is comfort measures. -Extensive goals of care discussion with the patient's family was done by Garth Gillespie MD. Patient's family decided to convert her to comfort care. Have had hospice consult the patient who has stated that she is not yet ready for hospice care inpatient as the patient appeared clinically improved over the weekend. She is however comfort measures only so we will discontinue all unnecessary medications. We will continue lactulose, IV Phenergan, omeprazole, fentanyl patch, Sinemet, amlodipine, restart levothyroxine. No blood draws/imaging studies. Patient would [facility]. -Mobilize the patient with physical therapy which will be necessary before discharging her home. Plan is to hopefully send patient home with home hospice tomorrow. -Patient was found to have elevated K to 6.4. We gave kayexelate and insulin with dextrose for quick resolution. we will do a repeat K level this afternoon. -Dr. Westfall from palliative care will see the patient and familiy today. He suggests for her ongoing nausea and vomiting we can give haldol. Asymptomatic UTI -Monitor CBC and vitals -Follow off antibiotics Heart healthy DVT ppx: alps and pharmacologic DNR/DNI Problem List: 1. Hepatic encephalopathy Pain Ratin Pain Location: na Pain Goal: Remain pain free Pain Plan: n Tomorrow's Labs & Rationales: na
[2017-10-26 14:00] VITALS: BP 122/56
--- NOTE | 2017-10-26 21:32 | Cons- Palliative Care ---
General Information and HPI Consulting Request Date of Consult: 10/26/17 Requested By: Jose Miguel PEREZ,Garth Reason for Consult: non-pain symptom mgmt, care/transition planning, eval for hospice care Source patient, family, old records Exam Limitations unable to give history, clinical condition, confusion History of Present Illness: 81F with end-stage liver disease. Palliative care team asked to assist patient, family, medical team with clarifying goals of care. Patient has been experiencing worsening hepatic encephalopathy. Also now experiencing renal dysfunction as well. Spouse, daughter present during my examination and express understaning that cure of patient's condition is not possible, and that her overall condition is worsening despite best efforts of medical team. That being said they are inclined to focus on symptom management and pursue care at home. Allergies/Medications Allergies: Coded Allergies: Opioids - Morphine Analogues (ITCH, GI UPSET 08/03/16) Opioids-Meperidine and Related (ITCH, GI UPSET 08/03/16) Opioids-Methadone and Related (ITCH, GI UPSET 08/03/16) codeine (GI UPSET 08/03/16) morphine (ITCHING, GI UPSET 08/03/16) Home Med List: Amlodipine Besylate 10 MG TABLET 1 TAB PO DAILY BP (Reported) Carbidopa/Levodopa (Sinemet 25-100 MG Tablet) 25 MG-100 MG TABLET 1 TAB PO TID GAIT/TREMOR INSTABILITY (Reported) Fentanyl (Duragesic) 12 MCG/HOUR PATCH.TD72 1 PAT TOP Q3D CHRONIC BACK PAIN . Insulin Aspart (Novolog) 100 UNIT/ML VIAL 0 UNITS SC TIDAC DM SUGARS SS 80-150 0 UNITS 151-200 2 UNITS 201-250 3 UNITS 251-300 4 UNITS 301-350 5 UNITS 351-400 6 UNITS >400 7 UNITS CALL UR DOCTOR Insulin Detemir (Levemir) 100 UNIT/ML VIAL 6 UNIT SC DAILY DM Lactulose 20 GRAM/30 ML SOLUTION 20 GM PO Q6H hyperammonemia . Levothyroxine Sodium (Synthroid) 175 MCG TABLET 1 TAB PO DAILY HYPOTHYROID . Mirabegron (Myrbetriq) 50 MG TAB.ER.24H 1 TAB PO DAILY BLADDER (Reported) Ondansetron HCl (Zofran) 4 MG TABLET 1 TAB PO Q8P PRN NAUSEA/VOMITING ( Reported) Rifaximin (Xifaxan) 550 MG TABLET 1 TAB PO BID LIVER Current Medications: Current Medications Sig/Jennifer Start time Last Medication Dose Route Stop Time Status Admin Amlodipine Besylate 10 MG DAILY 10/18 09 DCD 10/27 PO 0951 Carbidopa/Levodopa 1 TAB TID 10/18 09 DCD 10/27 PO 1303 Lactulose 20 GM Q6H 10/22 0400 DCD 10/26 PO 0909 Levothyroxine Sodium 0.175 MG DAILY AC 10/27 0700 DCD PO Omeprazole 40 MG DAILY AC 10/18 07 DCD 10/25 PO 0541 Patient Medication 1 ED ONE ONE 10/27 1115 DC 10/27 Teaching ED 10/27 1116 1303 Promethazine HCl 12.5 MG Q6P PRN 10/21 1100 DCD 10/26 IV 10/28 1059 1700 Review of Systems Review of Systems: unable to obtain ROS. 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 MOTHER (Mother at the age of 26 years, unknown cause). Psychosocial History Who Do You Live With? spouse Services at Home: None Primary Language: Bahraini Smoking Status: Never Smoked ETOH Use: denies use Illicit Drug Use: denies illicit drug use Karnofsky Performance Scale: 20 Living Will? no Power of Jacker/HCP? unknown Functional Ability ADLs Independent: dressing, eating, toileting, bathing. Ambulation: walker IADLs Independent: shopping, housework, finances, food prep, telephone, medication admin. Needs Assist: transportation. Exam & Diagnostic Data Last 24 Hrs of Vitals/I&Os: Vital Signs Date Time Temp Pulse Resp B/P B/P Pulse O2 O2 Flow FiO2 Mean Ox Delivery Rate 10/27 1344 97.8 96 18 130/80 95 10/27 0951 87 114/76 10/27 0631 98.0 87 20 114/76 96 Room Air 10/26 2251 97.9 88 20 120/80 95 Room Air Intake & Output 10/27 1600 10/27 0800 10/27 0000 Intake Total 400 100 0 Output Total Balance 400 100 0 Intake, Oral 400 100 0 Physical Exam: elderly female, in bed in moderate distress HEENT - NCAT, anicteric Neck - supple Lungs - CTA CV - RRR Abd - soft Extr - +edema Neuro - confused Assessment/Plan Assessment 81F w/ ESLD Patient's Condition: poor Goals of Care: comfort measures only Treatment Preferences: 1. Aggresive symtpom control - consider Haldol for refractory nausea 2. Home hospice care 3. Ongoign family counseling Consult Acknowledgment - Thank you for your consult request.
[2017-10-26 22:51] VITALS: BP 120/80
[2017-10-27 06:31] VITALS: BP 114/76
--- NOTE | 2017-10-27 07:23 | PN- Housestaff ---
Guilherme PEREZ,Latasha 10/27/17 0723: Subjective Follow-up For: end stage liver disease hepatic encephalopathy Subjective: Patient seen and examined. She states that she is feeling nauseous still but notes that it is less than prior. She denies any abdominal pain, chest pain, shortness of breath. Review of Systems Constitutional: Reports: no symptoms. Cardiovascular: Reports: no symptoms. Respiratory: Reports: no symptoms. Gastrointestinal: Reports: nausea. Musculoskeletal: Reports: no symptoms. Objective Last 24 Hrs of Vital Signs/I&O Vital Signs Date Time Temp Pulse Resp B/P B/P Pulse O2 O2 Flow FiO2 Mean Ox Delivery Rate 10/27 1344 97.8 96 18 130/80 95 10/27 0951 87 114/76 10/27 0631 98.0 87 20 114/76 96 Room Air 10/26 2251 97.9 88 20 120/80 95 Room Air Intake & Output 10/27 1600 10/27 0800 10/27 0000 Intake Total 400 100 0 Output Total Balance 400 100 0 Intake, Oral 400 100 0 Physical Exam General Appearance: Alert, Oriented X3, Cooperative, No Acute Distress Skin: No Rashes, No Breakdown Cardiovascular: Regular Rate, Normal S1, Normal S2, No Murmurs Abdomen: Normal Bowel Sounds, Soft, No Tenderness, No Masses, distended Neurological: Normal Speech Current Medications: Current Medications Sig/Jennifer Start time Last Medication Dose Route Stop Time Status Admin Amlodipine Besylate 10 MG DAILY 10/18 0900 DCD 10/27 PO 0951 Carbidopa/Levodopa 1 TAB TID 10/18 0900 DCD 10/27 PO 1303 Lactulose 20 GM Q6H 10/22 0400 DCD 10/26 PO 0909 Levothyroxine Sodium 0.175 MG DAILY AC 10/27 0700 DCD PO Omeprazole 40 MG DAILY AC 10/18 0700 DCD 10/25 PO 0541 Patient Medication 1 ED ONE ONE 10/27 1115 DC 10/27 Teaching ED 10/27 1116 1303 Promethazine HCl 12.5 MG Q6P PRN 10/21 1100 DCD 10/26 IV 10/28 1059 1700 Sodium Polystyrene 60 ML ONCE ONE 10/27 1999 DC Sulfonate PO 10/26 2000 Assessment/Plan Assessment: Patient is 81-year-old female presented with nausea, vomiting, abdominal distention and altered mental status. Patient was recently admitted here with similar complaints, at the time found to have a UTI which had likely precipitated an episode of acute hepatic encephalopathy. Patient had abdominal paracentesis done as well, 6 L of transudative fluid was removed. SBP was ruled out. She was put on lactulose as well and over time, her AMS resolved. She was discharged on rifaxamin. She had continued therapeutic paracentesis outpatient. 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 Patient's family decided to convert her to comfort care. Have had hospice consult the patient who has stated that she is not yet ready for hospice care inpatient as the patient appeared clinically improved over the weekend. She is however comfort measures only so we will discontinue all unnecessary medications. We will continue lactulose, IV Phenergan, omeprazole, fentanyl patch, Sinemet, amlodipine, restart levothyroxine. No blood draws/imaging studies. Patient will go for home hospice. -Patient was found to have elevated K to 6.4. We gave kayexelate and insulin with dextrose for quick resolution. Repeat K was 5.2. -Dr. Westfall from palliative care saw the patient yesterday and offered suggestions and support to her and the family. He suggests for her ongoing nausea and vomiting we can give haldol. Heart healthy DVT ppx: alps and pharmacologic DNR/DNI Problem List: 1. Hepatic encephalopathy 2. Liver failure Pain Ratin Pain Location: na Pain Goal: Remain pain free Pain Plan: na Tomorrow's Labs & Rationales: na Arole MD,Francisca 10/27/17 1248: Attending MD Review Statement Attending Statement Attending MD Statement: examined this patient, discuss w/resident/PA/REPORT DEVELOPER, agreed w/resident/PA/REPORT DEVELOPER, discussed with family, reviewed EMR data (avail), discussed with nursing, discussed with case mgmt, reviewed images, amended to note Attending Assessment/Plan: Patient seen and examined. In bed not in acute distress. Lethargic. present at the bedside. No further episodes of nausea vomiting. Tolerating meals. Family wished to proceed with discharge home with hospice care. Their goal currently is of the patient is kept comfortable and not in any distress. Hospice service will be meeting with the patient and family at home today. Medication list has been reconciled and she will continue on medications that will help provide comfort
[2017-10-27] MEDS ORDERED: LACTULOSE20 GM/30 M PO ×2 (08:01→11:45)
--- NOTE | 2017-10-27 08:01 | Patient Discharge Instructions ---
Discharge Instructions General Discharge Information You were seen/treated for: END STAGE LIVER DISEASE Special Instructions: comfort measures and home hospice Diet Continue normal diet: Yes Activity Full Activity/No Limits: Yes Acute Coronary Syndrome Inclusion Criteria At DC or during hospital stay patient has or had the following: ACS DIAGNOSIS No Discharge Core Measures Meds if any: Prescribed or Continued at Discharge Meds if any: NOT Prescribed or Continued at Discharge Congestive Heart Failure Inclusion Criteria At DC or during hospital stay patient has or had the following: CHF DIAGNOSIS No Discharge Core Measures Meds if any: Prescribed or Continued at Discharge Meds if any: NOT Prescribed or Continued at Discharge Cerebrovascular accident Inclusion Criteria At DC or during hospital stay patient has or had the following: CVA/TIA Diagnosis No Discharge Core Measures Meds if any: Prescribed or Continued at Discharge Meds if any: NOT Prescribed or Continued at Discharge Venous thromboembolism Inclusion Criteria VTE Diagnosis No VTE Type NONE VTE Confirmed by (Test) NONE Discharge Core Measures - Per Current guidelines, there needs to be overlap - treatment for the first 5 days of Warfarin therapy. - If discharged on Warfarin prior to 5 days of - overlap therapy, the patient will need to be - assessed for post discharge needs including - *Post discharge parental anticoagulation - *Warfarin and/or parental anticoagulation education - *Follow up date to check INR post discharge At least 5 days overlap therapy as Inpatient No Meds if any: Prescribed or Continued at Discharge Note: Overlap Therapy is Warfarin and Anticoagulant Meds if any: NOT Prescribed or Continued at Discharge
[2017-10-27 13:44] VITALS: BP 130/80
== END 2017-10-27 13:52 | disposition home or self-care (01) | DRG 441 ==
LOC: ERH 17:44 → 2NA 20:56 → ERHI 20:56 → ENRESERV 22:09 → 2NA 22:47 → ENTRNSPT 22:47 → EDTRNSPTSTS 22:48 → ERHI 22:59 → 2NA 22:59 → CMPTRNSPT 23:13 → 2NA 10-18 08:03 → ENPENDDIS 10-27 11:55 → 2NA 10-27 13:52
PROVIDERS: Emergency Medicine; Student in an Organized Health Care Education/Training Program
PROC: 0W9G3ZX Drainage of Peritoneal Cavity, Percutaneous Approach, Diagnostic (ICD-10-PCS; principal; 2017-10-18)
PROC: 0W9G3ZZ Drainage of Peritoneal Cavity, Percutaneous Approach (ICD-10-PCS; 2017-10-20)
DX: K72.90 Hepatic failure, unspecified without coma (principal); K76.7 Hepatorenal syndrome; K76.6 Portal hypertension; E72.20 Disorder of urea cycle metabolism, unspecified; N17.9 Acute kidney failure, unspecified; R18.8 Other ascites; N18.4 Chronic kidney disease, stage 4 (severe); G20 Parkinson's disease; E11.42 Type 2 diabetes mellitus with diabetic polyneuropathy; D69.6 Thrombocytopenia, unspecified; E86.0 Dehydration; K75.81 Nonalcoholic steatohepatitis (NASH); E87.5 Hyperkalemia; E83.52 Hypercalcemia; I25.10 Atherosclerotic heart disease of native coronary artery without angina pectoris; Z51.5 Encounter for palliative care; E03.9 Hypothyroidism, unspecified; G47.33 Obstructive sleep apnea (adult) (pediatric); G89.29 Other chronic pain; M54.9 Dorsalgia, unspecified; Z79.4 Long term (current) use of insulin; Z66 Do not resuscitate; E78.5 Hyperlipidemia, unspecified; K21.9 Gastro-esophageal reflux disease without esophagitis; R32 Unspecified urinary incontinence; G25.81 Restless legs syndrome; M48.00 Spinal stenosis, site unspecified; F32.9 Major depressive disorder, single episode, unspecified; I10 Essential (primary) hypertension; Z90.49 Acquired absence of other specified parts of digestive tract; Z88.5 Allergy status to narcotic agent; Z90.710 Acquired absence of both cervix and uterus; Z96.653 Presence of artificial knee joint, bilateral
CPT/HCPCS: 2NAP; 2NASP; 84133; 84300; 87075; 36415; 36592; 80307; 81001; 82436; 82570; 88305; 93005; 93010; 96374; 97110-GO; 97116-GO; 97162-GP; 97530-GO; J1815; J2001; J2354; J2405; J2550; J3101; P9047